=== PATIENT | male | born 1955 | race Caucasian/White ===

== ENCOUNTER 2016-11-28 20:33 | Inpatient (IN) | payer BC ==
[2016-11-28] VITALS (7 sets, daily range): BP systolic 118–159; BP diastolic 60–78; PULSE 106–133; RESP 18–20; TEMP 97.5; O2SAT 92–95
[~2016-11-28] VITALS: Ht 172.7 cm; Wt 73.7 kg
[~2016-11-28 20:33] MED LIST: AUGM500T7 PO; LACTCHW3 CHEW; PROP20TA3 PO
[2016-11-28] MEDS ORDERED: SODIUM CHLOR 0.9% 1000 ML INJ 1,000 ML IV SCH (21:13)
[2016-11-28] MEDS ORDERED: PANTOPRAZOLE INJ 80 MG in SODIUM CHLORIDE 0.9% INJ 35 ML IV ONE (21:15)
[2016-11-28] MEDS ORDERED: SODIUM CHLORIDE 0.9% FLUSH 5 ML FLUSH IVF PRN (21:15)
[2016-11-28] MEDS ORDERED: ONDANSETRON HCL 4 MG/2 ML VIAL IVP ONE (21:15)
[2016-11-28 21:35] LABS: AUTOMATED NEUTROPHIL # 4.3 TH/MM3 (1.8-7.7); BASOPHIL % 0.3 % (0.0-2.0); EOSINOPHIL % 0.8 % (0.0-4.0); HEMATOCRIT 28.8 % (39.0-51.0); LYMPH % 6.3 % (9.0-44.0); LYMPHOCYTE # 0.3 TH/MM3 (1.0-4.8); MEAN CELL VOLUME 101.9 FL (80.0-100.0); MEAN CORPUSCULAR HEMOGLOBIN 34.9 PG (27.0-34.0); MEAN CORPUSCULAR HGB CONC 34.3 % (32.0-36.0); MONO % 6.4 % (0.0-8.0); NEUT % 86.2 % (16.0-70.0); PLATELET COUNT 48 TH/MM3 (150-450); RED BLOOD COUNT 2.83 MIL/MM3 (4.50-5.90); RED CELL DISTRIBUTION WIDTH 13.9 % (11.6-17.2); WHITE BLOOD COUNT 4.9 TH/MM3 (4.0-11.0)
[2016-11-28 21:49] LABS: HEMO FLAGS AUTO DIFF
[2016-11-28 21:52] LABS: BLOOD UREA NITROGEN 15 MG/DL (7-18); CHLORIDE 101 MEQ/L (98-107); GLOMERULAR FILTRATION RATE 305 ML/MIN (>89); SODIUM (NA) 140 MEQ/L (136-145)
--- NOTE | 2016-11-28 21:54 | PD ---
HPI . Hematemesis Chief Complaint: GI Complaint Time Seen by Provider: 21:13 Travel History International Travel<30 days: No Contact w/Intl Traveler<30days: No Traveled to known affect area: No History of Present Illness HPI Patient presents following 2 episodes of hematemesis. They were fairly large volumes of blood. He denies any hematochezia or melena. He denies any weakness or dizziness. No fever. No previous history of hematochezia that he has had problems with bleeding in the past. Specifically, he has had a hemothorax on the right that required a prolonged chest tube. His also states that he had a bloody paracentesis in the recent past. They report that he has these problems because of cirrhosis of the liver secondary to alcohol abuse. He states that he has stopped drinking. PFSH Past Medical History Anemia: Yes Asthma: No Autoimmune Disease: No Anxiety: No Depression: No Cancer: No Cardiovascular Problems: No COPD: No Cerebrovascular Accident: No Diabetes: No Diminished Hearing: No Endocrine: No Genitourinary: Yes Immune Disorder: No Kidney Stones: Yes Musculoskeletal: No Neurologic: Yes Psychiatric: No Reproductive: No Respiratory: Yes (rt CHEST TUBE; COLLAPSED LUNG) Migraines: No Renal Failure: No Seizures: No Sickle Cell Disease: No Sleep Apnea: No Thyroid Disease: No Past Surgical History Abdominal Surgery: No AICD: No Arteriovenous Shunt: No Cardiac Surgery: No Ear Surgery: No Endocrine Surgery: No Eye Surgery: No Genitourinary Surgery: No Gynecologic Surgery: No Insulin Pump: No Joint Replacement: No Oral Surgery: No Pacemaker: No Thoracic Surgery: No Other Surgery: Yes (R ELBOW BONE SPUR REMOVAL ) Social History Alcohol Use: Yes (RARELY) Tobacco Use: No Substance Use: No Allergies-Medications (Allergen,Severity, Reaction): Coded Allergies: No Known Allergies (Unverified , 11/28/16) Reported Meds & Prescriptions Reported Meds & Active Scripts Active Lactinex (Lactobacillus Acidophilus) 1 Chew 1 Tab CHEW DAILY 30 Days Augmentin (Amoxicillin-Clavulanate) 500-125 mg Tab 500 Mg PO Q8HR 30 Days Reported Propranolol (Propranolol HCl) 20 Mg Tab 20 Mg PO Q12HR Review of Systems Except as stated in HPI: all other systems reviewed are Neg General / Constitutional: No: Fever, Chills HENT: No: Lightheadedness Cardiovascular: No: Chest Pain or Discomfort Respiratory: No: Shortness of Breath Gastrointestinal: Positive: Nausea, Vomiting, Hematemesis, No: Diarrhea, Abdominal Pain, Hematochezia Genitourinary: No: Urgency, Frequency, Dysuria Skin: Positive Change in Pigmentation (he is more yellow today than usual.) Neurologic: No: Weakness, Dizziness Physical Exam Narrative GENERAL: This is a thin, jaundiced man who is very pleasant. SKIN: Warm and dry. Jaundiced HEAD: Atraumatic. Normocephalic. EYES: Pupils equal and round. ENT: No nasal bleeding or discharge. Mucous membranes pink and moist. NECK: Trachea midline. Neck supple. No cervical lymphadenopathy. CARDIOVASCULAR: Regular rate and rhythm. RESPIRATORY: No accessory muscle use. Lungs are clear with full air movement throughout. GASTROINTESTINAL: Abdomen soft, non-tender, nondistended. No hepatomegaly palpated. MUSCULOSKELETAL: No obvious deformities. No edema. NEUROLOGICAL: Awake and alert. No obvious cranial nerve deficits. Motor grossly within normal limits. Normal speech. PSYCHIATRIC: Appropriate mood and affect; insight and judgment normal. Data Data Last Documented VS Vital Signs Date Time Temp Pulse Resp B/P Pulse Ox O2 Delivery O2 Flow Rate FiO2 11/28/16 22:00 18 11/28/16 21:46 97.5 106 145/62 93 11/28/16 21:39 Room Air Orders Complete Blood Count With Diff (11/28/16 21:13) Comprehensive Metabolic Panel (11/28/16 21:13) Prothrombin Time / Inr (Pt) (11/28/16 21:13) Act Partial Throm Time (Ptt) (11/28/16 21:13) Type And Screen (11/28/16 21:13) Ecg Monitoring (11/28/16 21:13) Iv Access Insert/Monitor (11/28/16 21:13) Ng Gastric Tube Insert/Monitor (11/28/16 21:13) Oximetry (11/28/16 21:13) Ondansetron Inj (Zofran Inj) (11/28/16 21:15) Sodium Chlor 0.9% 1000 Ml Inj (Ns 1000 M (11/28/16 21:13) Sodium Chloride 0.9% Flush (Ns Flush) (11/28/16 21:15) Octreotide Inj (Sandostatin Inj) (11/28/16 21:15) Pantoprazole Inj (Protonix Inj) (11/28/16 21:15) Electrocardiogram (11/28/16 21:19) Pantoprazole Inj (Protonix Inj) (11/28/16 22:00) Sodium Chlor 0.9% 1000 Ml Inj (Ns 1000 M (11/28/16 22:45) Red Blood Cells (Rbc) (11/28/16 22:41) Fresh Frozen Plasma (Ffp) (11/28/16 22:41) Blood Product Administration .UPON TRANSFUSION (11/28/16 22:41) Sodium Chlor 0.9% 250 Ml Inj (Ns 250 Ml (11/28/16 22:45) Admit Order (Ed Use Only) (11/28/16 22:57) Labs Laboratory Tests Test 11/28/16 11/28/16 21:20 22:41 White Blood Count 4.9 TH/MM3 Red Blood Count 2.83 MIL/MM3 Hemoglobin 9.9 GM/DL Hematocrit 28.8 % Mean Corpuscular Volume 101.9 FL Mean Corpuscular Hemoglobin 34.9 PG Mean Corpuscular Hemoglobin 34.3 % Concent Red Cell Distribution Width 13.9 % Platelet Count 48 TH/MM3 Mean Platelet Volume 7.2 FL Neutrophils (%) (Auto) 86.2 % Lymphocytes (%) (Auto) 6.3 % Monocytes (%) (Auto) 6.4 % Eosinophils (%) (Auto) 0.8 % Basophils (%) (Auto) 0.3 % Neutrophils # (Auto) 4.3 TH/MM3 Lymphocytes # (Auto) 0.3 TH/MM3 Monocytes # (Auto) 0.3 TH/MM3 Eosinophils # (Auto) 0.0 TH/MM3 Basophils # (Auto) 0.0 TH/MM3 CBC Comment AUTO DIFF Differential Comment AUTO DIFF CONFIRMED Platelet Estimate LOW Platelet Morphology Comment NORMAL Prothrombin Time 21.3 SEC Prothromb Time International 1.9 RATIO Ratio Activated Partial 36.3 SEC Thromboplast Time Sodium Level 140 MEQ/L Potassium Level 4.0 MEQ/L Chloride Level 101 MEQ/L Carbon Dioxide Level 28.2 MEQ/L Anion Gap 11 MEQ/L Blood Urea Nitrogen 15 MG/DL Creatinine 0.30 MG/DL Estimat Glomerular Filtration 305 ML/MIN Rate Random Glucose 129 MG/DL Calcium Level 8.4 MG/DL Total Bilirubin 10.3 MG/DL Aspartate Amino Transf 73 U/L (AST/SGOT) Alanine Aminotransferase 36 U/L (ALT/SGPT) Alkaline Phosphatase 118 U/L Total Protein 7.2 GM/DL Albumin 2.2 GM/DL Blood Type B POSITIVE Antibody Screen NEGATIVE Crossmatch Leukocyte-Reduced Red Blood Cells Blood Bank Comment MDM Medical Decision Making Medical Screen Exam Complete: Yes Emergency Medical Condition: Yes Medical Record Reviewed: Yes (patient was hospitalized in September 2016 with a right hemothorax which was recurrent in nature. He had bacterial peritonitis. He had Escherichia coli sepsis.) Interpretation(s) EKG shows a sinus tachycardia at 112. He has a right bundle branch block which is not new. Differential Diagnosis Differential diagnosis includes but is not limited to hemorrhagic gastritis, bleeding varices, peptic ulcer disease, coagulopathy, thrombocytopenia Narrative Course Patient presents with hematemesis. He has a previous history of liver failure secondary to alcoholic cirrhosis. He appears hemodynamically stable at presentation. 10:30 PM NGT has been placed and has drained about 200 cc of maroon colored gross blood. He remains hemodynamically stable at this point. 10:45 PM H&H of 928.8. INR is 1.9. BUN/creatinine is 15/0.3. Electrolytes are normal. Bilirubin is 10.3. Looks like his maximum bilirubin was about 15 in September. I will go ahead and paged the guest relations executive and get the ball rolling so that he could be transferred to [place]. 11:25 PM He continues to seem hemodynamically stable. His heart rate has stayed between 100 and 110. He has never been hypotensive. He is very uncomfortable with the NG tube but has declined pain medication. Critical Care Narrative Aggregate critical care time was 60 minutes. Time to perform other separately billable procedures was not included in the critical care time. My time did not include minutes spent treating any other patients simultaneously or on activities that did not directly contribute to the patient's treatment. The services I provided to this patient were to treat and/or prevent clinically significant deterioration that could result in: Cardiovascular collapse secondary to GI bleed. I provided critical care services requiring my management, as noted below: Chart data review, documentation time, medication orders and management, vital sign assessments/reviewing monitor data, ordering and reviewing lab tests, ordering and interpreting/reviewing x-rays and diagnostic studies, care of the patient and discussion of the patient with the admitting physicians. Physician Communication Physician Communication Dr. Caballero will accept in transfer. She has asked that I communicate with her drill press set up operator prior to transfer. He has also asked that I make sure that the patient has 2 IV lines. He does have 2 18-gauge peripheral lines. I have subsequently spoken with Dr. Villanueva. Diagnosis Primary Impression: Hematochezia Admitting Information Admitting Physician Requests: Admit Condition: Serious Aretha Rose MD Nov 28, 2016 21:54
[2016-11-28 21:55] LABS: APTT (PATIENT) 36.3 SEC (24.3-30.1); INTERNATIONAL NORMALIZED RATIO 1.9 RATIO; PROTHROMBIN TIME - PATIENT 21.3 SEC (9.8-11.6)
[2016-11-28 22:23] LABS: PLATELET ESTIMATE SMEAR LOW (NORMAL); PLATELET MORPHOLOGY NORMAL (NORMAL); SCAN/DIFF AUTO DIFF CONFIRMED
[2016-11-28] MEDS: OCTREOTIDE INJ 500 MCG in SODIUM CHLORID 0.9% 500 ML INJ 500 ML IV SCH (22:26)
[2016-11-28] MEDS: PANTOPRAZOLE 80 MG/100 ML NS IV SCH ×2 (22:33)
[2016-11-28 22:34] LABS: ALT (GPT) 36 U/L (12-78); ANION GAP 11 MEQ/L (5-15); AST (GOT) 73 U/L (15-37); BICARBONATE 28.2 MEQ/L (21.0-32.0)
[2016-11-28 22:37] LABS: ALKALINE PHOSPHATASE 118 U/L (45-117); TOTAL BILIRUBIN ADULT 10.3 MG/DL (0.2-1.0)
[2016-11-28] MEDS ORDERED: SODIUM CHLOR 0.9% 1000 ML INJ 1,000 ML IV ONE (22:45)
[2016-11-28] MEDS ORDERED: SODIUM CHLOR 0.9% 250 ML INJ 250 ML IV ONE (22:45)
[2016-11-29] VITALS (22 sets, daily range): BP systolic 132–152; BP diastolic 64–77; PULSE 62–120; RESP 14–20; TEMP 97.6–98.6; O2SAT 92–100
[2016-11-29] MEDS ORDERED: METO25TA3 PO (01:39)
[2016-11-29] MEDS: SODIUM CHLOR 0.9% 1000 ML INJ 1,000 ML IV SCH ×4 (04:35→22:00)
[2016-11-29] MEDS ORDERED: SODIUM PHOSPHATE INJ 30 MMOL in SODIUM CHLOR 0.9% 250 ML INJ 240 ML IV PRN (06:30)
[2016-11-29] MEDS ORDERED: ONDANSETRON HCL 4 MG/2 ML VIAL IV PRN (06:30)
[2016-11-29] MEDS ORDERED: MAGNESIUM SULFATE INJ 2 GM in SODIUM CHLORIDE 0.9% INJ 96 ML IV PRN (06:30)
[2016-11-29] MEDS ORDERED: RESP: ALBUTEROL 2.5 MG/IPRATROPIUM 0.5 MG NEB (PRN) INH (06:30)
[2016-11-29] MEDS ORDERED: POTASSIUM PHOSPHATE MONOBASIC 500 MG TAB PO PRN (06:30)
[2016-11-29] MEDS ORDERED: MISCELLANEOUS NURSING INFORMATION XX SCH (06:30)
[2016-11-29] MEDS ORDERED: POTASSIUM CHLOR 20 MEQ PREMIX 100 ML IV PRN ×2 (06:30)
[2016-11-29] MEDS ORDERED: MAGNESIUM OXIDE 400 MG TAB PO PRN (06:30)
[2016-11-29] MEDS ORDERED: POTASSIUM PHOSPHATE INJ 30 MMOL in SODIUM CHLOR 0.9% 250 ML INJ 250 ML IV PRN (06:30)
[2016-11-29] MEDS ORDERED: MAGNESIUM SULFATE INJ 4 GM in SODIUM CHLORIDE 0.9% INJ 92 ML IV PRN (06:30)
[2016-11-29] MEDS ORDERED: CHLORHEXIDINE GLUCONATE 2 % 1 PACK (2 CLOTHS) TOP PRN (06:30)
[2016-11-29] MEDS ORDERED: POTASSIUM CHLOR 40 MEQ PREMIX 100 ML IV PRN ×2 (06:30)
[2016-11-29] MEDS ORDERED: SODIUM CHLORIDE 0.9% FLUSH 5 ML FLUSH IV FLUSH PRN (06:30)
[2016-11-29] MEDS ORDERED: POTASSIUM PHOSPHATE MONOBASIC 500 MG TAB PO/TUBE PRN (06:30)
[2016-11-29] MEDS ORDERED: POTASSIUM CL 40 MEQ/30 ML LIQ UDC PO/TUBE PRN ×2 (06:30)
[2016-11-29] MEDS ORDERED: DEXTROSE 50% IN WATER 50 ML VIAL(D50) IV PUSH PRN (06:30)
[2016-11-29] MEDS: OCTREOTIDE INJ 500 MCG in SODIUM CHLORID 0.9% 500 ML INJ 500 ML IV SCH ×2 (06:34→18:11)
--- NOTE | 2016-11-29 06:51 | HHI.HP ---
HPI Service Critical Care Medicine Primary Care Physician Non-Staff Admission Diagnosis HEMATOCHEZIA Diagnosis: Chief Complaint: vomiting blood Travel History International Travel<30 Days: No Contact w/Intl Traveler <30 Da: No Traveled to Known Affected Are: No History of Present Illness This is a 61yM with history of ethanol cirrhosis who presents after 1 episode of vomiting bright red blood. He stated that earlier in the evening he was drinking a glass of water and then went to take a nap, and then woke up shortly after with a mild epigastric pain, nausea, and then vomited "a pint of blood". He immediately went to the ED, where he states he had 1 more episode of "small amount of bloody vomit". He denies diarrhea, dark tarry stools, bright red blood per rectum. denies fever, chills, abdominal pain currently, chest pain, shortness of breath. His MELD today is 22. Of note, he was recently inpatient for a recurrent right hemothorax, as well as e. coli spontaneous bacterial peritonitis. He has been followed by GI on an outpatient basis and they recently started him on propranolol. Review of Systems Constitutional: DENIES: Diaphoretic episodes, Fatigue, Fever, Weight gain, Weight loss, Chills, Dizziness, Change in appetite, Night Sweats Endocrine: DENIES: Heat/cold intolerance, Polydipsia, Polyuria, Polyphagia Eyes: DENIES: Blurred vision, Diplopia, Eye inflammation, Eye pain, Vision loss , Photosensitivity, Double Vision Ears, nose, mouth, throat: DENIES: Tinnitus, Hearing loss, Vertigo, Nasal discharge, Oral lesions, Throat pain, Hoarseness, Ear Pain, Running Nose, Epistaxis, Sinus Pain, Toothache, Odynophagia Respiratory: DENIES: Apneas, Cough, Snoring, Wheezing, Hemoptysis, Sputum production, Shortness of breath Cardiovascular: DENIES: Chest pain, Palpitations, Syncope, Dyspnea on Exertion , PND, Lower Extremity Edema, Orthopnea, Claudication Gastrointestinal: DENIES: Abdominal pain, Black stools, Bloody stools, Constipation, Diarrhea, Nausea, Vomiting, Difficulty Swallowing, Anorexia Genitourinary: DENIES: Sexual dysfunction, Urinary frequency, Urinary incontinence, Urgency, Hematuria, Dysuria, Nocturia, Penile Discharge, Testicular Pain, Testicular Swelling Musculoskeletal: DENIES: Joint pain, Muscle aches, Stiffness, Joint Swelling, Back pain, Neck pain Integumentary: DENIES: Abnormal pigmentation, Nail changes, Pruritus, Rash Hematologic/lymphatic: DENIES: Bruising, Lymphadenopathy Immunologic/allergic: DENIES: Eczema, Urticaria Neurologic: DENIES: Abnormal gait, Headache, Localized weakness, Paresthesias, Seizures, Speech Problems, Tremor, Poor Balance Psychiatric: DENIES: Anxiety, Confusion, Mood changes, Depression, Hallucinations, Agitation, Suicidal Ideation, Homicidal Ideation, Delusions ROS positive for mild transient epigastric pain which has now subsided. Past Family Social History Allergies: Coded Allergies: No Known Allergies (Unverified , 11/28/16) Past Medical History Anemia Kidney Stones Alcoholic Cirrhosis history of right-sided recurrent hemothorax requiring recurrent chest tube placement 09/2016 E.Coli Spontaneous Bacterial Peritonitis, 09/2016 Past Surgical History Right elbow bone spur removal Reported Medications Lactinex (Lactobacillus Acidophilus) 1 Chew 1 Tab CHEW DAILY 30 Days Augmentin (Amoxicillin-Clavulanate) 500-125 mg Tab 500 Mg PO Q8HR 30 Days Propranolol (Propranolol HCl) 20 Mg Tab 20 Mg PO Q12HR Active Ordered Medications See MAR Family History reviewed and found to be noncontributory to his acute illness. Social History +etoh. denies tob or DOA. Physical Exam Vital Signs Vital Signs Date Time Temp Pulse Resp B/P Pulse Ox O2 Delivery O2 Flow Rate FiO2 11/29/16 04:54 97.9 99 20 142/77 94 Room Air 11/29/16 04:38 98.0 96 18 132/66 100 Room Air 11/29/16 04:00 98.0 100 18 141/67 96 Nasal Cannula 1 11/29/16 03:50 97.9 98 20 137/68 97 Nasal Cannula 1 11/29/16 03:45 97.6 100 18 149/70 96 Nasal Cannula 1 11/29/16 03:15 90 Nasal Cannula 1 11/29/16 03:03 98.2 102 18 140/67 92 Room Air 11/29/16 01:30 97.7 106 18 145/68 94 Room Air 11/29/16 01:05 98.0 109 18 144/64 94 Room Air 11/29/16 00:45 97.8 110 18 143/66 96 Room Air 11/29/16 00:30 112 18 146/65 94 Room Air 11/29/16 00:30 18 11/29/16 00:00 112 20 152/65 93 Room Air 11/28/16 23:30 108 18 155/67 93 Room Air 11/28/16 23:00 106 20 159/69 93 Room Air 11/28/16 22:30 112 18 156/71 94 Room Air 11/28/16 22:00 18 11/28/16 22:00 112 18 147/60 94 Room Air 11/28/16 21:46 97.5 106 20 145/62 93 11/28/16 21:39 97.5 110 20 149/78 92 Room Air 11/28/16 20:35 97.5 133 20 118/77 95 Physical Exam Gen: awake, alert, NAD, jaundiced HEENT: significant scleral icterus. pupils 3mm, equal, conjugate, reactive. mucous membranes moist. Neck: flat neck veins. trachea midline. Chest: unlabored respirations. clear to auscultation CV: tachycardic rate, regular rhythm. no murmurs. Abd: soft, nontender, nondistended. no guarding. normoactive bowel sounds. Extr: trace edema. distal pulses 2+. large bore PIV x 3. Neuro: RASS 0. CAM -. follows commands in all 4 extremities. Laboratory Laboratory Tests Test 11/28/16 11/28/16 21:20 22:41 White Blood Count 4.9 Red Blood Count 2.83 Hemoglobin 9.9 Hematocrit 28.8 Mean Corpuscular Volume 101.9 Mean Corpuscular Hemoglobin 34.9 Mean Corpuscular Hemoglobin 34.3 Concent Red Cell Distribution Width 13.9 Platelet Count 48 Mean Platelet Volume 7.2 Neutrophils (%) (Auto) 86.2 Lymphocytes (%) (Auto) 6.3 Monocytes (%) (Auto) 6.4 Eosinophils (%) (Auto) 0.8 Basophils (%) (Auto) 0.3 Neutrophils # (Auto) 4.3 Lymphocytes # (Auto) 0.3 Monocytes # (Auto) 0.3 Eosinophils # (Auto) 0.0 Basophils # (Auto) 0.0 CBC Comment AUTO DIFF Differential Comment AUTO DIFF CONFIRMED Platelet Estimate LOW Platelet Morphology Comment NORMAL Prothrombin Time 21.3 Prothromb Time International 1.9 Ratio Activated Partial 36.3 Thromboplast Time Sodium Level 140 Potassium Level 4.0 Chloride Level 101 Carbon Dioxide Level 28.2 Anion Gap 11 Blood Urea Nitrogen 15 Creatinine 0.30 Estimat Glomerular Filtration 305 Rate Random Glucose 129 Calcium Level 8.4 Total Bilirubin 10.3 Aspartate Amino Transf 73 (AST/SGOT) Alanine Aminotransferase 36 (ALT/SGPT) Alkaline Phosphatase 118 Total Protein 7.2 Albumin 2.2 Blood Type B POSITIVE Antibody Screen NEGATIVE Crossmatch Leukocyte-Reduced Red Blood Cells Blood Bank Comment Result Diagram: 11/28/16211911/28/162119 Assessment and Plan Assessment and Plan Assessment: This is a 61yM with h/o alcoholic cirrhosis and recent e. coli sbp who presents now with 2 episodes of hematemesis and concern for ongoing upper GI bleed. He is currently not hemodynamically unstable. I do think it is reasonable to proceed with diagnostic endoscopy if GI concurs. Until then, we will maintain 2 large bore piv access at all times and monitor the patient with serial labs and frequent checks in an ICU setting. From an overall functional decline standpoint, he has had a general decline in hepatic function over the last 3 months, and his MELD is now 22 today. He has been etoh free for the last 12 months. I think it is reasonable to start considering beginning the work-up for transplantation, since at present he does not have any absolute contraindication for this. Plan by systems: Neurologic: History of alcohol dependence RASS goal 0 Patient denies any active alcohol use Respiratory: Atelectasis Incentive spirometer to bedside Head of bed at 30 Wean oxygen by nasal cannula for SPO2 greater than 92% Cardiovascular: Monitor via telemetry Holding home propranolol in the setting of possible hemodynamically significant GI bleed Renal: -- Strict I/Os FEN/GI: Acute protein calorie malnutritionmoderate Cirrhosis secondary to ethanol use History of Escherichia coli spontaneous bacterial peritonitis Upper GI bleed Ascites GI consulted Possible endoscopy today Continue nothing by mouth for now Continue NG tube to low intermittent wall suction H&H every 6 hours Coags every 6 hours Ceftriaxone 1 g IV every 24 hours for SBP prophylaxis Daily LFTs, BMP Protonix infusion Octreotide Heme/ID: Coagulopathy secondary to liver disease Anemia secondary to acute blood loss Thrombocytopenia secondary to liver disease History of e coli spontaneous bacterial peritonitis 2 units FFP 1 now Every 6 H&H, coags Goal hemoglobin greater than 7, INR less than 1.5 with active bleeding, platelets greater than 50,000 with active bleeding Cephalexin 1 g IV every 24 hours for SBP prophylaxis Daily CBC Endocrine: Hyperglycemia of critical illness -- SSI, every 6 hours, medium scale Prophylaxis: GI Prophylaxis Protonix infusion DVT Prophylaxis -- SCDs Holding pharmacologic DVT prophylaxis in the setting of acute upper GI bleed Lines: 2 large-bore peripheral IVs at all times. Dispo: Admit to the ICU. Code Status Full Code Todd Gonzalez MD Nov 29, 2016 06:51
[2016-11-29] MEDS: PANTOPRAZOLE 80 MG/100 ML NS IV SCH ×4 (08:00→18:11)
[2016-11-29] MEDS: SODIUM CHLORIDE 0.9% FLUSH 5 ML FLUSH IV FLUSH SCH ×2 (09:00→20:06)
[2016-11-29 09:29] LABS: APTT (PATIENT) 36.3 SEC (24.3-30.1); INTERNATIONAL NORMALIZED RATIO 1.7 RATIO; PROTHROMBIN TIME - PATIENT 19.7 SEC (9.8-11.6)
[2016-11-29 09:30] LABS: HEMATOCRIT 25.6 % (39.0-51.0)
[2016-11-29 09:35] LABS: REVIEW FLAG FINAL
[2016-11-29] MEDS: INSULIN NovoLIN REGULAR SUPPLEMENTAL SCALE SQ SCH ×2 (12:00→18:00)
[2016-11-29] MEDS: cefTRIAXone INJ 1,000 MG in SODIUM CHLORIDE 0.9% INJ 100 ML IV SCH (12:51)
[2016-11-29 13:09] LABS: REVIEW FLAG FINAL
[2016-11-29 13:15] LABS: APTT (PATIENT) 34.3 SEC (24.3-30.1); INTERNATIONAL NORMALIZED RATIO 1.7 RATIO; PROTHROMBIN TIME - PATIENT 18.8 SEC (9.8-11.6)
[2016-11-29 20:52] LABS: HEMATOCRIT 27.4 % (39.0-51.0)
[2016-11-29 20:53] LABS: REVIEW FLAG FINAL
[2016-11-29 21:03] LABS: APTT (PATIENT) 37.1 SEC (24.3-30.1); INTERNATIONAL NORMALIZED RATIO 1.7 RATIO; PROTHROMBIN TIME - PATIENT 19.2 SEC (9.8-11.6)
[2016-11-29 21:08] LABS: MEAN CORPUSCULAR HGB CONC 36.3 % (32.0-36.0)
--- NOTE | 2016-11-29 23:50 | EKG ---
Date Performed: 11/28/2016 Time Performed: 21:18:26 PTAGE: 61 years EKG: Sinus tachycardia with borderline 1st degree A-V block Possible left atrial abnormality Ind eterminate axis Right bundle branch block Abnormal ECG PREVIOUS TRACING : 09/11/2016 02.26 DOCTOR: Litzy Randall Interpretating Date/Time 11/29/2016 23:43:24
[2016-11-30] VITALS (12 sets, daily range): BP systolic 131–143; BP diastolic 66–73; PULSE 87–100; RESP 16–22; TEMP 98–98.6; O2SAT 93–99
[2016-11-30 00:33] LABS: HEMATOCRIT 25.9 % (39.0-51.0)
[2016-11-30 00:34] LABS: REVIEW FLAG FINAL
[2016-11-30 00:38] LABS: APTT (PATIENT) 37.3 SEC (24.3-30.1); INTERNATIONAL NORMALIZED RATIO 1.7 RATIO; PROTHROMBIN TIME - PATIENT 19.5 SEC (9.8-11.6)
[2016-11-30] MEDS: PANTOPRAZOLE 80 MG/100 ML NS IV SCH ×6 (03:01→19:32)
[2016-11-30] MEDS: OCTREOTIDE INJ 500 MCG in SODIUM CHLORID 0.9% 500 ML INJ 500 ML IV SCH ×3 (03:01→19:32)
[2016-11-30] MEDS: CHLORHEXIDINE GLUCONATE 2 % 1 PACK (2 CLOTHS) TOP SCH (04:00)
[2016-11-30] MEDS: INSULIN NovoLIN REGULAR SUPPLEMENTAL SCALE SQ SCH ×4 (05:44→18:00)
[2016-11-30 06:54] LABS: APTT (PATIENT) 36.9 SEC (24.3-30.1); INTERNATIONAL NORMALIZED RATIO 1.8 RATIO; PROTHROMBIN TIME - PATIENT 20.4 SEC (9.8-11.6)
[2016-11-30 07:05] LABS: HEMATOCRIT 26.1 % (39.0-51.0); MEAN CELL VOLUME 96.8 FL (80.0-100.0); MEAN CORPUSCULAR HEMOGLOBIN 35.1 PG (27.0-34.0); PLATELET COUNT 39 TH/MM3 (150-450); RED BLOOD COUNT 2.69 MIL/MM3 (4.50-5.90); RED CELL DISTRIBUTION WIDTH 18.5 % (11.6-17.2); WHITE BLOOD COUNT 3.9 TH/MM3 (4.0-11.0)
[2016-11-30 07:14] LABS: BICARBONATE 28.2 MEQ/L (21.0-32.0); INDIRECT BILIRUBIN 6.7 MG/DL (0.0-0.8); POTASSIUM 3.6 MEQ/L (3.5-5.1); TOTAL BILIRUBIN ADULT 10.3 MG/DL (0.2-1.0)
[2016-11-30 08:07] LABS: REVIEW FLAG FINAL
[2016-11-30] MEDS: cefTRIAXone INJ 1,000 MG in SODIUM CHLORIDE 0.9% INJ 100 ML IV SCH (09:23)
[2016-11-30] MEDS: SODIUM CHLORIDE 0.9% FLUSH 5 ML FLUSH IV FLUSH SCH ×2 (09:26→19:33)
[2016-11-30] MEDS ORDERED: PNEUMOCOCCAL POLYVALENT INJ 25 MCG/0.5 ML SYR IM ONE (10:00)
[2016-11-30] MEDS ORDERED: INFLUENZA VIRUS VACCINE (QUADRIVALENT) 0.5 ML SYR IM ONE (10:00)
--- NOTE | 2016-11-30 12:16 | MB ---
cc: BOGDAN MUHAMMAD DATE OF CONSULTATION: 11/29/2016 DATE OF : 1955 date REASON FOR REFERRAL Gastrointestinal bleed and cirrhosis. HISTORY OF PRESENT ILLNESS Thank you for consultation, 61-year-old female who is known to have alcohol liver disease. The patient has cirrhosis. He quit drinking mostly about a year ago. The patient was drinking water when he started having nausea and vomiting and he vomited what he thinks was a pint of blood. He came to the emergency room and is found to have anemia. The patient denied any black stool, diarrhea, bright red blood per rectum. The patient is jaundice. He had right hemothorax recently and a systolic blood pressure he was started on recently. PAST MEDICAL HISTORY Significant for kidney stone alcohol cirrhosis hemothorax requiring chest tube recently Systolic blood pressure Right elbow surgery MEDICATIONS Reviewed in the chart. ALLERGIES No known drug allergy FAMILY HISTORY Noncontributory. SOCIAL HISTORY Positive for alcohol. No tobacco or drugs. PHYSICAL EXAMINATION IN GENERAL: Alert, oriented in no acute distress laying in bed comfortably. VITAL SIGNS: Stable. HEAD, EYES, EARS, NOSE, AND THROAT: Pupils are reactive to light. NECK: Supple. CHEST: Clear to auscultation. CARDIAC: Tachycardiac. No murmur or gallop. ABDOMEN: Soft, mild distension, most likely he has ascites. EXTREMITIES: +1 edema. NEUROLOGICALLY: Intact. Patient has jaundice and yellow sclera. LABORATORY DATA Sodium 143, potassium 3.6, BUN 14, creatinine 0.4 80s total bilirubin 10.3, AST 73 and ALT 36, alk phos 118, albumin 2.2, Hemoglobin 9.2 and creatinine 25.9, white blood cells 4.9, platelet 48, INR 1.8. ASSESSMENT AND PLAN: 61-year-old gentleman who has history of known cirrhosis secondary to alcohol. The patient had hematemesis, could be Alicia-Dyson tear, could be esophageal varices. RECOMMENDATIONS Upper endoscopy, we will continue supportive care. He is on Protonix. Hemoglobin is stable. Further plan depends on the finding on the upper endoscopy. He is on octreotide started by the emergency room. The patient was advised the absence of tobacco completely and his known score is 22 and we would recommend to him being evaluated with transplant center. MD Melissa Juarez /11:37 AM /12:09 PM
--- NOTE | 2016-11-30 12:22 | EKG ---
Date Performed: 11/30/2016 Time Performed: 10:14:25 PTAGE: 61 years EKG: Sinus rhythm MARKED LEFT AXIS DEVIATION RIGHT BUNDLE BRANCH BLOCK ABNORMAL ECG PREVIOUS TRACING : 11/28/2016 21.18 DOCTOR: Stuart Oden Interpretating Date/Time 11/30/2016 12:20:08
[2016-11-30] MEDS ORDERED: DO NOT ADM ANY ANTICOAGULANT DRUGS XX PRN (14:00)
[2016-11-30] MEDS ORDERED: MIDAZOLAM HCL 2 MG/2 ML VIAL ONE (15:53)
[2016-11-30] MEDS ORDERED: PROPOFOL 200 MG/20 ML AMP IV ONE (15:56)
--- NOTE | 2016-11-30 17:06 | MR ---
cc: BOGDAN MUHAMMAD DATE: 11/30/2016 DATE OF : [address] Caballero PROCEDURE Upper gastrointestinal endoscopy. MEDICATIONS Propofol administered by anesthesia. INSTRUMENTS: Pentax upper scope. INDICATION 61-year-old gentleman who has hematemesis and anemia known to have cirrhosis. PROCEDURE After informing the patient of procedure and complication consent was signed. The patient was placed on his left lateral decubitus adequate sedation was achieved by propofol scope was placed in the mouth advanced under video guidance to the second portion of the duodenum scope drawn back the stomach. Retroflexion was performed and the scope drawn back without immediate complication. FINDINGS 1. ESOPHAGUS: Severe esophagitis. 2. Alicia-Dyson tear at the GE junction. 3. Short barretts. 4. No biopsy was done because of the cardiomyopathy the patient has high INR and low platelet. 5. STOMACH: Gastropathy. 6. DUODENUM: Normal. RECOMMENDATIONS 1. Clear liquid. 2. CBC in the morning. 3. No alcohol. 4. May stop the Sandostatin. MD ANJUM Juarez/jeane /4:03 PM /4:58 PM
[2016-11-30] MEDS: SODIUM CHLOR 0.9% 1000 ML INJ 1,000 ML IV SCH (19:33)
--- NOTE | 2016-11-30 22:08 | HHI.CCPN ---
Subjective Remarks/Hospital Course Hospital Course: This is a 61yM with history of ethanol cirrhosis who presents after 1 episode of vomiting bright red blood. He stated that earlier in the evening he was drinking a glass of water and then went to take a nap, and then woke up shortly after with a mild epigastric pain, nausea, and then vomited "a pint of blood". He immediately went to the ED, where he states he had 1 more episode of "small amount of bloody vomit". He denies diarrhea, dark tarry stools, bright red blood per rectum. denies fever, chills, abdominal pain currently, chest pain, shortness of breath. His MELD today is 22. Of note, he was recently inpatient for a recurrent right hemothorax, as well as e. coli spontaneous bacterial peritonitis. He has been followed by GI on an outpatient basis and they recently started him on propranolol. Subjective: 11/30: doing well. hgb stable throughout the day yesterday. no more episodes of bloody emesis. hungry this morning. Objective Vital Signs Date Time Temp Pulse Resp B/P Pulse Ox O2 Delivery O2 Flow Rate FiO2 11/30/16 20:21 98 Nasal Cannula 3.00 11/30/16 20:00 95 11/30/16 20:00 98.5 16 131/73 Intake and Output 11/29/16 11/29/16 11/30/16 08:00 16:00 00:00 Intake Total 2035 ml 2236 ml 1045 ml Output Total 250 ml 600 ml 1050 ml Balance 1785 ml 1636 ml -5 ml Result Diagram: 11/30/16 0624 11/30/16 0524 Objective Remarks Gen: awake, alert, NAD, jaundiced HEENT: significant scleral icterus. pupils 3mm, equal, conjugate, reactive. mucous membranes moist. Neck: flat neck veins. trachea midline. Chest: unlabored respirations. clear to auscultation CV: tachycardic rate, regular rhythm. no murmurs. Abd: soft, nontender, nondistended. no guarding. normoactive bowel sounds. Extr: trace edema. distal pulses 2+. large bore PIV x 3. Neuro: RASS 0. CAM -. follows commands in all 4 extremities. A/P Assessment and Plan Assessment: This is a 61yM with h/o alcoholic cirrhosis and recent e. coli sbp who presented with 2 episodes of hematemesis. he has remained stable. plan for EGD today. If he remains stable without evidence of active bleeding, he will be safe for transfer to the floor after EGD. From an overall functional decline standpoint, he has had a general decline in hepatic function over the last 3 months, and his MELD is now 22. He has been etoh free for the last 2 months. I think it is reasonable to start considering beginning the work-up for transplantation, since at present he does not have any absolute contraindication for this. Plan by systems: Neurologic: History of alcohol dependence RASS goal 0 Patient denies any active alcohol use Respiratory: Atelectasis Incentive spirometer to bedside Head of bed at 30 Wean oxygen by nasal cannula for SPO2 greater than 92% Cardiovascular: Monitor via telemetry Holding home propranolol in the setting of possible hemodynamically significant GI bleed Renal: -- Strict I/Os FEN/GI: Acute protein calorie malnutritionmoderate Cirrhosis secondary to ethanol use History of Escherichia coli spontaneous bacterial peritonitis Upper GI bleed Ascites GI consulted endoscopy today Continue nothing by mouth for now Continue NG tube to low intermittent wall suction liberalize to qday CBC. daily coags. Ceftriaxone 1 g IV every 24 hours for SBP prophylaxis Daily LFTs, BMP Protonix infusion Octreotide Heme/ID: Coagulopathy secondary to liver disease Anemia secondary to acute blood loss Thrombocytopenia secondary to liver disease History of e coli spontaneous bacterial peritonitis s/p 2 units FFP /3. Goal hemoglobin greater than 7, INR less than 1.5 with active bleeding, platelets greater than 50,000 with active bleeding Rocephin 1 g IV every 24 hours for SBP prophylaxis Daily CBC Endocrine: Hyperglycemia of critical illness -- SSI, every 6 hours, medium scale Prophylaxis: GI Prophylaxis Protonix infusion DVT Prophylaxis -- SCDs Holding pharmacologic DVT prophylaxis in the setting of acute upper GI bleed Lines: 2 large-bore peripheral IVs at all times. Dispo: After EGD, stable for transfer to the floor with hospitalist consult. Todd Gonzalez MD Nov 30, 2016 22:08
[2016-12-01] VITALS (15 sets, daily range): BP systolic 96–160; BP diastolic 55–82; PULSE 82–92; RESP 14–17; TEMP 97.4–98.9; O2SAT 90–98
[2016-12-01] MEDS: CHLORHEXIDINE GLUCONATE 2 % 1 PACK (2 CLOTHS) TOP SCH (04:00)
[2016-12-01 04:02] LABS: HEMATOCRIT 24.9 % (39.0-51.0); MEAN CORPUSCULAR HEMOGLOBIN 34.5 PG (27.0-34.0); MEAN CORPUSCULAR HGB CONC 35.5 % (32.0-36.0); PLATELET COUNT 40 TH/MM3 (150-450); RED BLOOD COUNT 2.56 MIL/MM3 (4.50-5.90); RED CELL DISTRIBUTION WIDTH 18.6 % (11.6-17.2); WHITE BLOOD COUNT 3.8 TH/MM3 (4.0-11.0)
[2016-12-01 04:13] LABS: APTT (PATIENT) 40.7 SEC (24.3-30.1); INTERNATIONAL NORMALIZED RATIO 1.8 RATIO; PROTHROMBIN TIME - PATIENT 20.9 SEC (9.8-11.6)
[2016-12-01 04:32] LABS: INDIRECT BILIRUBIN 5.2 MG/DL (0.0-0.8); POTASSIUM 3.4 MEQ/L (3.5-5.1); TOTAL BILIRUBIN ADULT 8.1 MG/DL (0.2-1.0)
[2016-12-01 05:00] LABS: REVIEW FLAG FINAL
[2016-12-01] MEDS: PANTOPRAZOLE 80 MG/100 ML NS IV SCH ×4 (05:14→15:21)
[2016-12-01] MEDS: INSULIN NovoLIN REGULAR SUPPLEMENTAL SCALE SQ SCH ×4 (05:17→18:00)
[2016-12-01] MEDS ORDERED: POTASSIUM CL 40 MEQ/30 ML LIQ UDC PO ONE (07:30)
[2016-12-01] MEDS: SODIUM CHLORIDE 0.9% FLUSH 5 ML FLUSH IV FLUSH SCH ×2 (09:00→20:21)
[2016-12-01] MEDS: cefTRIAXone INJ 1,000 MG in SODIUM CHLORIDE 0.9% INJ 100 ML IV SCH (10:00)
--- NOTE | 2016-12-01 13:36 | HHI.GIFU ---
Subjective Remarks Patient is sitting up in chair eating lunch, reports some old blood this morning , no hematemesis, no nausea, no vomiting or abdominal pain, inquiring about advancing diet. (Sofia Rubio) Objective Vitals I&O Vital Signs Date Time Temp Pulse Resp B/P Pulse Ox O2 Delivery O2 Flow Rate FiO2 12/01/16 10:17 87 12/01/16 10:14 94 Nasal Cannula 3.00 12/01/16 08:00 98.0 90 14 160/82 90 12/01/16 08:00 85 12/01/16 06:00 82 12/01/16 04:00 97.4 90 14 141/74 97 12/01/16 04:00 90 12/01/16 02:00 87 12/01/16 00:00 86 12/01/16 00:00 98.2 86 17 133/66 97 11/30/16 22:00 91 11/30/16 20:21 98 Nasal Cannula 3.00 11/30/16 20:00 95 11/30/16 20:00 98.5 95 16 131/73 98 11/30/16 16:30 98.0 87 18 134/70 99 11/30/16 16:30 98.0 92 16 133/71 95 Room Air 11/30/16 16:15 94 15 130/69 98 Nasal Cannula 2 11/30/16 16:10 98.5 98 14 127/66 95 Nasal Cannula 2 I/O 11/30/16 11/30/16 11/30/16 12/01/16 12/01/16 12/01/16 07:00 15:00 23:00 07:00 15:00 23:00 Intake Total 1121 ml 1627 ml 775 ml 873 ml Output Total 525 ml 1250 ml 325 ml 250 ml Balance 596 ml 377 ml 450 ml 623 ml IV Total 1121 ml 1627 ml 275 ml 873 ml Other 500 ml Output Urine Total 525 ml 1200 ml 325 ml 250 ml Stool Total 0 ml Gastric Drainage Total 50 ml # Bowel Movements 0 0 0 Laboratory Laboratory Tests Test 12/01/16 03:08 White Blood Count 3.8 Red Blood Count 2.56 Hemoglobin 8.8 Hematocrit 24.9 Mean Corpuscular Volume 97.0 Mean Corpuscular Hemoglobin 34.5 Mean Corpuscular Hemoglobin 35.5 Concent Red Cell Distribution Width 18.6 Platelet Count 40 Mean Platelet Volume 7.0 Prothrombin Time 20.9 Prothromb Time International 1.8 Ratio Activated Partial 40.7 Thromboplast Time Sodium Level 142 Potassium Level 3.4 Chloride Level 107 Carbon Dioxide Level 28.0 Anion Gap 7 Blood Urea Nitrogen 14 Creatinine 0.44 Estimat Glomerular Filtration 196 Rate Random Glucose 108 Calcium Level 7.5 Total Bilirubin 8.1 Direct Bilirubin 2.9 Indirect Bilirubin 5.2 Aspartate Amino Transf 41 (AST/SGOT) Alanine Aminotransferase 28 (ALT/SGPT) Alkaline Phosphatase 95 Total Protein 6.0 Albumin 2.0 Physical Exam HEENT: scleral icterus, normocephalic; atraumatic; + jaundice. NECK: Neck is supple, no JVD, no lymphadenopathy. CHEST: Chest is clear to auscultation and percussion. CARDIAC: Regular rate and rhythm with no murmur gallop or rubs. ABDOMEN: firm, nondistended, nontender; no hepatosplenomegaly; bowel sounds are present in all four quadrants. EXTREMITIES: No clubbing, cyanosis, or edema. SKIN: Normal; no rash; + jaundice. PLASTICS PROCESS HAND: No focal deficits; alert and oriented times three. (Sofia Rubio) Assessment and Plan Plan - Upper GI bleed/hematemesis- S/P EGD on (11/30/16) ------> severe esophagitis, Alicia-garcia tear at the GE junction, short barretts, gastropathy, no bx done due to high INR No more hematemesis, there was old blood this morning. hgb stable - Coagulopathy/Thrombocytopenia secondary to liver disease - Anemia secondary to acute blood loss - Cirrhosis secondary to ethanol use- has been clean for few months. MELD Zapata 13, UNOS 21 - History of Escherichia coli spontaneous bacterial peritonitis Plan: - Advance diet as tolerated - Monitor hh - Notify GI for active bleed - Cont. Protonix - Agree with Tertiary eval for liver transplant - Supportive care - Patient seen and examined by Dr. Marie and myself and this note is written on his behalf. (Sofia Rubio) Physician Comments Patient was seen and examined, agree with above note and plan, overall guarded prognosis, consider evaluation in a IDP center. (Rome Marie MD) Sofia Rubio Dec 01, 2016 13:36 Rome Marie MD Dec 01, 2016 20:19
--- NOTE | 2016-12-01 17:19 | HHI.PR ---
Subjective Remarks tolerating po diet Objective Vitals Vital Signs Date Time Temp Pulse Resp B/P Pulse Ox O2 Delivery O2 Flow Rate FiO2 12/01/16 16:25 98.0 88 14 122/82 95 12/01/16 16:23 85 12/01/16 14:00 85 12/01/16 12:00 98.3 88 14 96/55 90 12/01/16 12:00 90 12/01/16 10:17 87 12/01/16 10:14 94 Nasal Cannula 3.00 12/01/16 08:00 98.0 90 14 160/82 90 12/01/16 08:00 85 12/01/16 06:00 82 12/01/16 04:00 97.4 90 14 141/74 97 12/01/16 04:00 90 12/01/16 02:00 87 12/01/16 00:00 86 12/01/16 00:00 98.2 86 17 133/66 97 11/30/16 22:00 91 11/30/16 20:21 98 Nasal Cannula 3.00 11/30/16 20:00 95 11/30/16 20:00 98.5 95 16 131/73 98 I/O 11/30/16 11/30/16 11/30/16 12/01/16 12/01/16 12/01/16 07:00 15:00 23:00 07:00 15:00 23:00 Intake Total 1121 ml 1627 ml 775 ml 873 ml 875 ml Output Total 525 ml 1250 ml 325 ml 250 ml 600 ml Balance 596 ml 377 ml 450 ml 623 ml 275 ml IV Total 1121 ml 1627 ml 275 ml 873 ml 875 ml Other 500 ml Output Urine Total 525 ml 1200 ml 325 ml 250 ml 600 ml Stool Total 0 ml Gastric Drainage Total 50 ml # Bowel Movements 0 0 0 1 Result Diagram: 12/01/16 0308 12/01/16 0308 Objective Remarks GENERAL: awake and alert, oriented x 3 SKIN: Warm and dry. HEAD: Normocephalic. EYES: No scleral icterus. No injection or drainage. NECK: Supple, trachea midline. No JVD or lymphadenopathy. CARDIOVASCULAR: Regular rate and rhythm without murmurs, gallops, or rubs. RESPIRATORY: Breath sounds equal bilaterally. No accessory muscle use. GASTROINTESTINAL: Abdomen soft, non-tender, nondistended. MUSCULOSKELETAL: No cyanosis, or edema. BACK: Nontender without obvious deformity. No CVA tenderness. Procedures /- EGD- severe esophagitis, gastritis A/P Assessment and Plan This is a 61yM with h/o alcoholic cirrhosis and recent e. coli sbp who presented with 2 episodes of hematemesis. he has remained stable. plan for EGD today. If he remains stable without evidence of active bleeding, he will be safe for transfer to the floor after EGD. From an overall functional decline standpoint, he has had a general decline in hepatic function over the last 3 months, and his MELD is now 22. He has been etoh free for the last 2 months. I think it is reasonable to start considering beginning the work-up for transplantation, since at present he does not have any absolute contraindication for this. Plan by systems: Neurologic: History of alcohol dependence RASS goal 0 Patient denies any active alcohol use Respiratory: Atelectasis Incentive spirometer to bedside Head of bed at 30 Wean oxygen by nasal cannula for SPO2 greater than 92% - increase activity- out of bed Cardiovascular: Monitor via telemetry Holding home propranolol in the setting of possible hemodynamically significant GI bleed Renal: -- Strict I/Os FEN/GI: Acute protein calorie malnutritionmoderate Cirrhosis secondary to ethanol use History of Escherichia coli spontaneous bacterial peritonitis Upper GI bleed S/P EGD- severe esophagitis, gastritis Ascites tolerating diet liberalize to qday CBC. daily coags. Ceftriaxone 1 g IV every 24 hours for SBP prophylaxis Daily LFTs, BMP Protonix infusion DC Octreotide Heme/ID: Coagulopathy secondary to liver disease Anemia secondary to acute blood loss Thrombocytopenia secondary to liver disease History of e coli spontaneous bacterial peritonitis s/p 2 units FFP 1/3. Goal hemoglobin greater than 7, INR less than 1.5 with active bleeding, platelets greater than 50,000 with active bleeding Rocephin 1 g IV every 24 hours for SBP prophylaxis Daily CBC Endocrine: Hyperglycemia of critical illness -- SSI, every 6 hours, medium scale HYpokalemia- replace po Prophylaxis: GI Prophylaxis Protonix infusion DVT Prophylaxis -- SCDs Holding pharmacologic DVT prophylaxis in the setting of acute upper GI bleed Lines: 2 large-bore peripheral IVs at all times. Transfer to medical floor. Increae activity Alex Gentile MD Dec 01, 2016 17:19 Alex Gentile MD Dec 01, 2016 17:19
[2016-12-02] VITALS: BP 136/69; PULSE 90; RESP 18; TEMP 98.8; O2SAT 97
[2016-12-02] MEDS: INSULIN NovoLIN REGULAR SUPPLEMENTAL SCALE SQ SCH
[2016-12-02] MEDS: CHLORHEXIDINE GLUCONATE 2 % 1 PACK (2 CLOTHS) TOP SCH (03:02)
[2016-12-02] MEDS: PANTOPRAZOLE 80 MG/100 ML NS IV SCH ×2 (03:45)
[2016-12-02 04:00] VITALS: BP 116/61; PULSE 90; RESP 18; TEMP 98.3; O2SAT 96
[2016-12-02 06:51] LABS: APTT (PATIENT) 41.1 SEC (24.3-30.1); INTERNATIONAL NORMALIZED RATIO 1.9 RATIO; PROTHROMBIN TIME - PATIENT 22.1 SEC (9.8-11.6)
[2016-12-02 07:14] LABS: BICARBONATE 27.5 MEQ/L (21.0-32.0); INDIRECT BILIRUBIN 5.3 MG/DL (0.0-0.8); POTASSIUM 3.3 MEQ/L (3.5-5.1); TOTAL BILIRUBIN ADULT 7.8 MG/DL (0.2-1.0)
[2016-12-02 07:35] LABS: HEMATOCRIT 24.5 % (39.0-51.0); MEAN CELL VOLUME 97.7 FL (80.0-100.0); MEAN CORPUSCULAR HEMOGLOBIN 35.1 PG (27.0-34.0); MEAN CORPUSCULAR HGB CONC 35.9 % (32.0-36.0); PLATELET COUNT 40 TH/MM3 (150-450); RED CELL DISTRIBUTION WIDTH 18.1 % (11.6-17.2)
[2016-12-02 08:07] VITALS: BP 121/62; PULSE 97; RESP 18; TEMP 97.8; O2SAT 92
[2016-12-02 08:16] LABS: REVIEW FLAG AUTO DIFF
[2016-12-02] MEDS: SODIUM CHLORIDE 0.9% FLUSH 5 ML FLUSH IV FLUSH SCH (08:50)
[2016-12-02] MEDS: cefTRIAXone INJ 1,000 MG in SODIUM CHLORIDE 0.9% INJ 100 ML IV SCH (08:50)
[2016-12-02 09:42] VITALS: O2SAT 94
--- NOTE | 2016-12-02 11:54 | HHI.GIFU ---
Subjective Remarks Pt ambulating about room. Denies n/v. No bleeding. tolerating diet. (Natalia Anderson) Objective Vitals I&O Vital Signs Date Time Temp Pulse Resp B/P Pulse Ox O2 Delivery O2 Flow Rate FiO2 12/02/16 09:42 94 Nasal Cannula 1.50 12/02/16 08:07 97.8 97 18 121/62 92 12/02/16 04:00 98.3 90 18 116/61 96 12/02/16 00:00 98.8 90 18 136/69 97 12/01/16 22:00 88 12/01/16 20:00 98.9 92 15 131/68 98 12/01/16 20:00 92 12/01/16 19:10 97 Nasal Cannula 3.00 12/01/16 18:10 92 12/01/16 16:25 98.0 88 14 122/82 95 12/01/16 16:23 85 12/01/16 14:00 85 12/01/16 12:00 98.3 88 14 96/55 90 12/01/16 12:00 90 I/O 12/01/16 12/01/16 12/01/16 12/02/16 12/02/16 12/02/16 07:00 15:00 23:00 07:00 15:00 23:00 Intake Total 873 ml 875 ml 643 ml 352 ml Output Total 250 ml 600 ml Balance 623 ml 275 ml 643 ml 352 ml Intake Oral 480 ml 240 ml IV Total 873 ml 875 ml 163 ml 112 ml Output Urine Total 250 ml 600 ml # Voids 1 1 # Bowel Movements 0 1 1 1 Laboratory Laboratory Tests Test 12/02/16 05:41 White Blood Count 3.0 Red Blood Count 2.50 Hemoglobin 8.8 Hematocrit 24.5 Mean Corpuscular Volume 97.7 Mean Corpuscular Hemoglobin 35.1 Mean Corpuscular Hemoglobin 35.9 Concent Red Cell Distribution Width 18.1 Platelet Count 40 Mean Platelet Volume 7.6 Prothrombin Time 22.1 Prothromb Time International 1.9 Ratio Activated Partial 41.1 Thromboplast Time Sodium Level 142 Potassium Level 3.3 Chloride Level 106 Carbon Dioxide Level 27.5 Anion Gap 9 Blood Urea Nitrogen 9 Creatinine 0.38 Estimat Glomerular Filtration 232 Rate Random Glucose 96 Calcium Level 7.4 Protein Corrected Calcium 8.0 Total Bilirubin 7.8 Direct Bilirubin 2.5 Indirect Bilirubin 5.3 Aspartate Amino Transf 35 (AST/SGOT) Alanine Aminotransferase 26 (ALT/SGPT) Alkaline Phosphatase 92 Total Protein 6.0 Albumin 1.9 Physical Exam HEENT: Normocephalic; atraumatic; + jaundice. NECK: Neck is supple, no JVD, no lymphadenopathy. CHEST: CTA CARDIAC: RRR ABDOMEN: Abdomen, nontender; hepatosplenomegaly; bowel sounds are present in all four quadrants. EXTREMITIES: No clubbing, cyanosis, or edema. SKIN: Normal; no rash; + jaundice. 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 (Natalia Anderson) Assessment and Plan Plan ASSESSMENT: - Upper GI bleed/hematemesis- S/P EGD on (11/30/16) ------> severe esophagitis, Alicia-garcia tear at the GE junction, short barretts, gastropathy, no bx done due to high INR No further bleeding. 8.8/24.5. PPI. - Coagulopathy/Thrombocytopenia secondary to liver disease. INR 1.9. - Anemia secondary to acute blood loss. Stable. No further bleeding. 8.8/ 24.5. - Cirrhosis secondary to ethanol use- has been clean for few months. MELD Zapata 13, UNOS 21 Plan: - Heart healthy diet - Cont. PPI - Monitor labs - Gi will sign off, please reconsult as needed - FU OVIDIO 2 weeks - Will need outpatient referral to tertiary for transplant evaluation - Patient seen and examined by Dr. Marie and myself and this note is written on his behalf. (Natalia Anderson) Physician Comments Patient was seen and examined, agree with above note and plan, over all guarded , pognosis, need evaluation by [facility]. we will FU as OP. (Rome Marie MD) Natalia Anderson Dec 02, 2016 11:54 Rome Marie MD Dec 03, 2016 07:36
[2016-12-02 12:33] VITALS: BP_SYST 104; BP_SYST 108; BP_DIAS 56; BP_DIAS 66; PULSE 107; PULSE 85; RESP 18; TEMP 98.1; TEMP 98.5; O2SAT 93; O2SAT 96
--- NOTE | 2016-12-02 13:27 | HHI.PR ---
Subjective Remarks tolerating po well, no abdominal discomfort no nausea or vomiting no melena or hematochezia Objective Vitals Vital Signs Date Time Temp Pulse Resp B/P Pulse Ox O2 Delivery O2 Flow Rate FiO2 12/02/16 12:33 98.1 107 18 108/56 93 12/02/16 09:42 94 Nasal Cannula 1.50 12/02/16 08:07 97.8 97 18 121/62 92 12/02/16 04:00 98.3 90 18 116/61 96 12/02/16 00:00 98.8 90 18 136/69 97 12/01/16 22:00 88 12/01/16 20:00 98.9 92 15 131/68 98 12/01/16 20:00 92 12/01/16 19:10 97 Nasal Cannula 3.00 12/01/16 18:10 92 12/01/16 16:25 98.0 88 14 122/82 95 12/01/16 16:23 85 12/01/16 14:00 85 I/O 12/01/16 12/01/16 12/01/16 12/02/16 12/02/16 12/02/16 07:00 15:00 23:00 07:00 15:00 23:00 Intake Total 873 ml 875 ml 643 ml 352 ml Output Total 250 ml 600 ml Balance 623 ml 275 ml 643 ml 352 ml Intake Oral 480 ml 240 ml IV Total 873 ml 875 ml 163 ml 112 ml Output Urine Total 250 ml 600 ml # Voids 1 1 # Bowel Movements 0 1 1 1 Result Diagram: 12/02/16 0541 12/02/16 0541 Objective Remarks GENERAL: awake and alert, oriented x 3 SKIN: Warm and dry. HEAD: Normocephalic. EYES: No scleral icterus. No injection or drainage. NECK: Supple, trachea midline. No JVD or lymphadenopathy. CARDIOVASCULAR: Regular rate and rhythm without murmurs, gallops, or rubs. RESPIRATORY: Breath sounds equal bilaterally. No accessory muscle use. GASTROINTESTINAL: Abdomen soft, non-tender,good bowel sounds MUSCULOSKELETAL: No cyanosis, or edema. BACK: Nontender without obvious deformity. No CVA tenderness. Procedures 11/30- EGD- severe esophagitis, gastritis A/P Assessment and Plan This is a 61yM with h/o alcoholic cirrhosis and recent e. coli sbp who presented with 2 episodes of hematemesis. he has remained stable. plan for EGD today. If he remains stable without evidence of active bleeding, he will be safe for transfer to the floor after EGD. From an overall functional decline standpoint, he has had a general decline in hepatic function over the last 3 months, and his MELD is now 22. He has been etoh free for the last 2 months. I think it is reasonable to start considering beginning the work-up for transplantation, since at present he does not have any absolute contraindication for this. Plan by systems: Neurologic: History of alcohol dependence RASS goal 0 Patient denies any active alcohol use Respiratory: Atelectasis Incentive spirometer to bedside Head of bed at 30 Wean oxygen by nasal cannula for SPO2 greater than 92% - increase activity- out of bed Cardiovascular: Monitor via telemetry Holding home propranolol in the setting of possible hemodynamically significant GI bleed Renal: -- Strict I/Os FEN/GI: Acute protein calorie malnutritionmoderate Cirrhosis secondary to ethanol use History of Escherichia coli spontaneous bacterial peritonitis Upper GI bleed S/P EGD- severe esophagitis, gastritis Ascites tolerating diet liberalize to qday CBC. daily coags. Ceftriaxone 1 g IV every 24 hours for SBP prophylaxis- will DC on DC Daily LFTs, BMP Protonix infusion- change to po PPI for DC Heme/ID: Coagulopathy secondary to liver disease Anemia secondary to acute blood loss Thrombocytopenia secondary to liver disease History of e coli spontaneous bacterial peritonitis s/p 2 units FFP 1/3. Goal hemoglobin greater than 7, INR less than 1.5 with active bleeding, platelets greater than 50,000 with active bleeding Rocephin 1 g IV every 24 hours for SBP prophylaxis Daily CBC Endocrine: Hyperglycemia of critical illness -- SSI, every 6 hours, medium scale HYpokalemia- replace po Prophylaxis: GI Prophylaxis Protonix infusion DVT Prophylaxis -- SCDs Holding pharmacologic DVT prophylaxis in the setting of acute upper GI bleed Lines: 2 large-bore peripheral IVs at all times. DC home today FF up with PCP in 3-5 days FF up with GI in 2 weeks Alex Gentile MD Dec 02, 2016 13:27
[2016-12-02] MEDS ORDERED: PANT40TA3 PO (13:37)
[2016-12-02] MEDS ORDERED: POTA20TA5 PO (13:38)
--- NOTE | 2016-12-02 13:43 | HHI.DS ---
Discharge Summary Admission Date Nov 28, 2016 at 22:59 Discharge Date: Dec 02, 2016 Admitting Diagnosis HEMATOCHEZIA (1) GIB (gastrointestinal bleeding) ICD Code: K92.2 Procedures 11/30- EGD- severe esophagitis, gastritis Brief History - From Admission This is a 61yM with history of ethanol cirrhosis who presents after 1 episode of vomiting bright red blood. He stated that earlier in the evening he was drinking a glass of water and then went to take a nap, and then woke up shortly after with a mild epigastric pain, nausea, and then vomited "a pint of blood". He immediately went to the ED, where he states he had 1 more episode of "small amount of bloody vomit". He denies diarrhea, dark tarry stools, bright red blood per rectum. denies fever, chills, abdominal pain currently, chest pain, shortness of breath. His MELD today is 22. Of note, he was recently inpatient for a recurrent right hemothorax, as well as e. coli spontaneous bacterial peritonitis. He has been followed by GI on an outpatient basis and they recently started him on propranolol. CBC/BMP: 12/02/16 0541 12/02/16 0541 Significant Findings Laboratory Tests Test 11/29/16 11/29/16 11/30/16 11/30/16 19:52 20:00 00:00 05:24 Hemoglobin 9.8 GM/DL 9.2 GM/DL (13.0-17.0) (13.0-17.0) Hematocrit 27.4 % 25.9 % (39.0-51.0) (39.0-51.0) Prothrombin Time 19.2 SEC 19.5 SEC (9.8-11.6) (9.8-11.6) Activated Partial 37.1 SEC 37.3 SEC Thromboplast Time (24.3-30.1) (24.3-30.1) Chloride Level 108 MEQ/L (98-107) Creatinine 0.48 MG/DL (0.60-1.30) Calcium Level 7.8 MG/DL (8.5-10.1) Total Bilirubin 10.3 MG/DL (0.2-1.0) Direct Bilirubin 3.6 MG/DL (0.0-0.2) Indirect Bilirubin 6.7 MG/DL (0.0-0.8) Aspartate Amino Transf 43 U/L (15-37) (AST/SGOT) Albumin 2.1 GM/DL (3.4-5.0) Test 11/30/16 12/01/16 12/02/16 06:24 03:08 05:41 White Blood Count 3.9 TH/MM3 3.8 TH/MM3 3.0 TH/MM3 (4.0-11.0) (4.0-11.0) (4.0-11.0) Red Blood Count 2.69 MIL/MM3 2.56 MIL/MM3 2.50 MIL/MM3 (4.50-5.90) (4.50-5.90) (4.50-5.90) Hemoglobin 9.5 GM/DL 8.8 GM/DL 8.8 GM/DL (13.0-17.0) (13.0-17.0) (13.0-17.0) Hematocrit 26.1 % 24.9 % 24.5 % (39.0-51.0) (39.0-51.0) (39.0-51.0) Mean Corpuscular Hemoglobin 35.1 PG 34.5 PG 35.1 PG (27.0-34.0) (27.0-34.0) (27.0-34.0) Mean Corpuscular Hemoglobin 36.3 % Concent (32.0-36.0) Red Cell Distribution Width 18.5 % 18.6 % 18.1 % (11.6-17.2) (11.6-17.2) (11.6-17.2) Platelet Count 39 TH/MM3 40 TH/MM3 40 TH/MM3 (150-450) (150-450) (150-450) Prothrombin Time 20.4 SEC 20.9 SEC 22.1 SEC (9.8-11.6) (9.8-11.6) (9.8-11.6) Activated Partial 36.9 SEC 40.7 SEC 41.1 SEC Thromboplast Time (24.3-30.1) (24.3-30.1) (24.3-30.1) Potassium Level 3.4 MEQ/L 3.3 MEQ/L (3.5-5.1) (3.5-5.1) Creatinine 0.44 MG/DL 0.38 MG/DL (0.60-1.30) (0.60-1.30) Random Glucose 108 MG/DL (74-106) Calcium Level 7.5 MG/DL 7.4 MG/DL (8.5-10.1) (8.5-10.1) Total Bilirubin 8.1 MG/DL 7.8 MG/DL (0.2-1.0) (0.2-1.0) Direct Bilirubin 2.9 MG/DL 2.5 MG/DL (0.0-0.2) (0.0-0.2) Indirect Bilirubin 5.2 MG/DL 5.3 MG/DL (0.0-0.8) (0.0-0.8) Aspartate Amino Transf 41 U/L (15-37) (AST/SGOT) Total Protein 6.0 GM/DL 6.0 GM/DL (6.4-8.2) (6.4-8.2) Albumin 2.0 GM/DL 1.9 GM/DL (3.4-5.0) (3.4-5.0) Protein Corrected Calcium 8.0 MG/DL (8.5-10.1) PE at Discharge GENERAL: awake and alert, oriented x 3 SKIN: Warm and dry. HEAD: Normocephalic. EYES: No scleral icterus. No injection or drainage. NECK: Supple, trachea midline. No JVD or lymphadenopathy. CARDIOVASCULAR: Regular rate and rhythm without murmurs, gallops, or rubs. RESPIRATORY: Breath sounds equal bilaterally. No accessory muscle use. GASTROINTESTINAL: Abdomen soft, non-tender,good bowel sounds MUSCULOSKELETAL: No cyanosis, or edema. BACK: Nontender without obvious deformity. No CVA tenderness. Pt update on day of discharge awake and alert, very motivated no bleeding VS stable, up saadia mbulating no dizziness aware of ffup[ and diangosis- findings explained to her Hospital Course This is a 61yM with h/o alcoholic cirrhosis and recent e. coli sbp who presented with 2 episodes of hematemesis. he has remained stable. plan for EGD today. If he remains stable without evidence of active bleeding, he will be safe for transfer to the floor after EGD. From an overall functional decline standpoint, he has had a general decline in hepatic function over the last 3 months, and his MELD is now 22. He has been etoh free for the last 2 months. I think it is reasonable to start considering beginning the work-up for transplantation, since at present he does not have any absolute contraindication for this. Plan by systems: Neurologic: History of alcohol dependence RASS goal 0 Patient denies any active alcohol use Respiratory: Atelectasis Incentive spirometer to bedside Head of bed at 30 Wean oxygen by nasal cannula for SPO2 greater than 92% - increase activity- out of bed Cardiovascular: Monitor via telemetry Holding home propranolol in the setting of possible hemodynamically significant GI bleed Renal: -- Strict I/Os FEN/GI: Acute protein calorie malnutritionmoderate Cirrhosis secondary to ethanol use History of Escherichia coli spontaneous bacterial peritonitis Upper GI bleed S/P EGD- severe esophagitis, gastritis Ascites tolerating diet liberalize to qday CBC. daily coags. Ceftriaxone 1 g IV every 24 hours for SBP prophylaxis- will DC on DC Daily LFTs, BMP Protonix infusion- change to po PPI for DC Heme/ID: Coagulopathy secondary to liver disease Anemia secondary to acute blood loss Thrombocytopenia secondary to liver disease History of e coli spontaneous bacterial peritonitis s/p 2 units FFP 1/3. Goal hemoglobin greater than 7, INR less than 1.5 with active bleeding, platelets greater than 50,000 with active bleeding Rocephin 1 g IV every 24 hours for SBP prophylaxis Daily CBC Endocrine: Hyperglycemia of critical illness -- SSI, every 6 hours, medium scale HYpokalemia- replace po Prophylaxis: GI Prophylaxis po ppi DVT Prophylaxis -- SCDs Holding pharmacologic DVT prophylaxis in the setting of acute upper GI bleed Lines: 2 large-bore peripheral IVs at all times. DC home today FF up with PCP in 3-5 days FF up with GI in 2 weeks Pt Condition on Discharge: Good Discharge Disposition: Discharge Home Discharge Time: <= 30 minutes Discharge Instructions DIET: Follow Instructions for: As Tolerated, No Restrictions Activities you can perform: Weight Bearing as William Follow up Referrals: Gastroenterology - 2 Weeks @ [facility] PCP Follow-up - 12/05/16 with KARAVAR New Orders: BASIC METABOLIC PROF - 12/06/16 New Medications: Pantoprazole (Pantoprazole) 40 Mg Tab 40 MG PO DAILY eso/gastri #30 Ref 2 TAB Potassium Chloride Microencaps (Potassium Chloride Microencaps) 20 Meq Tab 20 MEQ PO Q12HR electr #14 TAB Discontinued Medications: Amoxicillin-Clavulanate (Augmentin) 500-125 mg Tab 500 MG PO Q8HR infection Days 30 TAB Lactobacillus Acidophilus (Lactinex) 1 Chew 1 TAB CHEW DAILY Nutritional Supplement Days 30 Ref 0 TAB Metoprolol Tartrate (Metoprolol Tartrate) 25 Mg Tab 25 MG PO DAILY PRN BP > 110 #30 Ref 0 TAB Alex Gentile MD Dec 02, 2016 13:42
[2016-12-02] MEDS ORDERED: POTASSIUM CHLORIDE 20 MEQ CONTROLLED RELEASE TAB PO SCH (14:00)
[2016-12-03] MEDS ORDERED: PANTOPRAZOLE SOD 40 MG DELAYED RELEASE TAB PO SCH (09:00)
== END 2016-12-02 15:38 | disposition home or self-care (01) | DRG 369 ==
LOC: PHED 20:33 → PHEDA 22:59 → PHEDH 11-29 02:59 → HIMW 11-29 05:20 → N04B 12-01 23:58
PROVIDERS: ADMIT Internal Medicine; ATTEND Internal Medicine
PROC: 0DJ08ZZ Inspection of Upper Intestinal Tract, Via Natural or Artificial Opening Endoscopic (ICD-10-PCS; principal; 2016-11-30 15:30)
DX: K22.6 Gastro-esophageal laceration-hemorrhage syndrome (principal); J98.11 Atelectasis; D68.4 Acquired coagulation factor deficiency; I42.9 Cardiomyopathy, unspecified; E44.0 Moderate protein-calorie malnutrition; D69.59 Other secondary thrombocytopenia; D62 Acute posthemorrhagic anemia; K70.31 Alcoholic cirrhosis of liver with ascites; R73.9 Hyperglycemia, unspecified; K20.9 Esophagitis, unspecified; K22.70 Barrett's esophagus without dysplasia; K31.9 Disease of stomach and duodenum, unspecified; K29.70 Gastritis, unspecified, without bleeding; E87.6 Hypokalemia; F10.20 Alcohol dependence, uncomplicated; Z23 Encounter for immunization
CPT/HCPCS: 36430; 80048; 80053; 80076; 82948; 84155; 85014; 85018; 85025; 85027; 85610; 85730; 86850; 86900; 86901; 86920; 86927; 87641; 90686; 90732; 93005; 94150; 94640; 94667; 96361; 96365; 96368; 96375; C9113; J0696; J2250; J2354; J2405; J7030; J7040; J7050; P9016; P9017; Q2038

== ENCOUNTER 2017-01-08 20:33 | Inpatient (IN) | payer BC ==
[~2017-01-08] VITALS: Ht 175.3 cm; Wt 65.5 kg
[~2017-01-08 20:33] MED LIST changes: -AUGM500T7 PO; -LACTCHW3 CHEW; +PANT40TA3 PO; +POTA20TA5 PO; -PROP20TA3 PO
[2017-01-08 20:35] VITALS: BP 100/55; PULSE 82; RESP 16; TEMP 98.2; O2SAT 98
[2017-01-08] MEDS ORDERED: SODIUM CHLORIDE 0.9% FLUSH 5 ML FLUSH IVF PRN (21:00)
[2017-01-08 21:23] VITALS: BP 132/61; PULSE 120; RESP 16; O2SAT 100
[2017-01-08] MEDS ORDERED: SODIUM CHLOR 0.9% 1000 ML INJ 1,000 ML IV ONE (21:30)
[2017-01-08 21:48] LABS: AUTOMATED NEUTROPHIL # 4.3 TH/MM3 (1.8-7.7); BASOPHIL % 0.4 % (0.0-2.0); EOSINOPHIL # 0.2 TH/MM3 (0-0.4); EOSINOPHIL % 3.2 % (0.0-4.0); HEMATOCRIT 24.3 % (39.0-51.0); LYMPH % 12.7 % (9.0-44.0); LYMPHOCYTE # 0.7 TH/MM3 (1.0-4.8); MEAN CELL VOLUME 102.3 FL (80.0-100.0); MEAN CORPUSCULAR HEMOGLOBIN 36.7 PG (27.0-34.0); MEAN CORPUSCULAR HGB CONC 35.8 % (32.0-36.0); MONO % 9.9 % (0.0-8.0); NEUT % 73.8 % (16.0-70.0); PLATELET COUNT 59 TH/MM3 (150-450); RED BLOOD COUNT 2.37 MIL/MM3 (4.50-5.90); RED CELL DISTRIBUTION WIDTH 14.6 % (11.6-17.2); WHITE BLOOD COUNT 5.8 TH/MM3 (4.0-11.0)
[2017-01-08 21:53] LABS: ANION GAP 7 MEQ/L (5-15); AST (GOT) 46 U/L (15-37); BICARBONATE 29.4 MEQ/L (21.0-32.0); BLOOD UREA NITROGEN 31 MG/DL (7-18); CHLORIDE 103 MEQ/L (98-107); GLOMERULAR FILTRATION RATE 123 ML/MIN (>89); POTASSIUM 4.2 MEQ/L (3.5-5.1); SODIUM (NA) 139 MEQ/L (136-145)
[2017-01-08 21:54] LABS: APTT (PATIENT) 39.3 SEC (24.3-30.1); INTERNATIONAL NORMALIZED RATIO 1.9 RATIO; PROTHROMBIN TIME - PATIENT 22.1 SEC (9.8-11.6)
[2017-01-08 21:56] LABS: ALKALINE PHOSPHATASE 100 U/L (45-117); ALT (GPT) 29 U/L (12-78); TOTAL BILIRUBIN ADULT 7.6 MG/DL (0.2-1.0)
[2017-01-08 22:23] LABS: HEMO FLAGS AUTO DIFF
[2017-01-08 22:24] LABS: PLATELET ESTIMATE SMEAR LOW (NORMAL); PLATELET MORPHOLOGY NORMAL (NORMAL); SCAN/DIFF AUTO DIFF CONFIRMED
[2017-01-08] MEDS ORDERED: OCTREOTIDE INJ 100 MCG/ML VIAL IV PUSH ONE (23:00)
[2017-01-08] MEDS ORDERED: PANTOPRAZOLE SODIUM 40 MG VIAL IV PUSH ONE (23:00)
[2017-01-08 23:13] VITALS: BP 123/58; PULSE 112; RESP 16; O2SAT 100
--- NOTE | 2017-01-08 23:21 | PD ---
HPI Chief Complaint: GI Complaint Time Seen by Provider: 20:58 Travel History International Travel<30 days: No Contact w/Intl Traveler<30days: No Traveled to known affect area: No History of Present Illness HPI 61-year-old male with a history of liver failure presents the emergency department for evaluation of an episode of hematemesis he had earlier today. Patient apparently had a history of esophageal bleeding in the past. Patient states he did have an episode of weakness and dizziness as well as headache which caused him to come into the ER. PFSH Past Medical History Anemia: Yes (thrombocytopenia ) Asthma: No Autoimmune Disease: No Anxiety: No Depression: No Cancer: No Cardiovascular Problems: No Cirrhosis: Yes (Cirrhosis of the liver) COPD: No Cerebrovascular Accident: No Diabetes: No Diminished Hearing: No Endocrine: No Genitourinary: Yes Headaches: No Immune Disorder: No Kidney Stones: Yes Medical other: Yes ([facility] LIVER TRANSPLANT) Musculoskeletal: No Neurologic: Yes Psychiatric: No Reproductive: No Respiratory: Yes (Rt chest tubes) Migraines: No Renal Failure: No Seizures: No Sickle Cell Disease: No Sleep Apnea: No Thyroid Disease: No Past Surgical History Abdominal Surgery: No AICD: No Arteriovenous Shunt: No Cardiac Surgery: No Ear Surgery: No Endocrine Surgery: No Eye Surgery: No Genitourinary Surgery: No Gynecologic Surgery: No Insulin Pump: No Joint Replacement: No Oral Surgery: No Pacemaker: No Thoracic Surgery: No Other Surgery: Yes (R ELBOW BONE SPUR REMOVAL, Rt chest tubes for pleural effusion Aug 2016) Social History Alcohol Use: No Tobacco Use: No Substance Use: No Allergies-Medications (Allergen,Severity, Reaction): Coded Allergies: No Known Allergies (Unverified , 01/08/17) Reported Meds & Prescriptions Reported Meds & Active Scripts Active No Active Prescriptions or Reported Medications Review of Systems Except as stated in HPI: all other systems reviewed are Neg Physical Exam Narrative GENERAL: Well-developed, thin obvious jaundice and icteric in no obvious distress. SKIN: Warm and dry. jaundice HEAD: Atraumatic. Normocephalic. EYES: Pupils equal and round. Scleral icterus. No injection or drainage. ENT: No nasal bleeding or discharge. Mucous membranes pink and moist. NECK: Trachea midline. No JVD. CARDIOVASCULAR: Regular rate and rhythm. No murmur appreciated. RESPIRATORY: No accessory muscle use. Clear to auscultation. Breath sounds equal bilaterally. GASTROINTESTINAL: Abdomen soft, non-tender, nondistended. Hepatic and splenic margins not palpable. MUSCULOSKELETAL: No obvious deformities. No clubbing. No cyanosis. No edema. NEUROLOGICAL: Awake and alert. No obvious cranial nerve deficits. Motor grossly within normal limits. Normal speech. PSYCHIATRIC: Appropriate mood and affect; insight and judgment normal. Data Data Last Documented VS Vital Signs Date Time Temp Pulse Resp B/P Pulse Ox O2 Delivery O2 Flow Rate FiO2 01/08/17 23:13 112 16 123/58 100 Room Air 01/08/17 20:35 98.2 Orders Complete Blood Count With Diff (01/08/17 20:58) Comprehensive Metabolic Panel (01/08/17 20:58) Lipase (01/08/17 20:58) Lactic Acid (01/08/17 20:58) Prothrombin Time / Inr (Pt) (01/08/17 20:58) Act Partial Throm Time (Ptt) (01/08/17 20:58) Urinalysis - C+S If Indicated (01/08/17 20:58) Iv Access Insert/Monitor (01/08/17 20:58) Ecg Monitoring (01/08/17 20:58) Oximetry (01/08/17 20:58) Sodium Chloride 0.9% Flush (Ns Flush) (01/08/17 21:00) Electrocardiogram (01/08/17 20:58) Sodium Chlor 0.9% 1000 Ml Inj (Ns 1000 M (01/08/17 21:30) Type And Screen (01/08/17 21:17) Pantoprazole Inj (Protonix Inj) (01/08/17 23:00) Octreotide Inj (Sandostatin Inj) (01/08/17 23:00) Admit Order (Ed Use Only) (01/08/17 ) Ondansetron Inj (Zofran Inj) (01/08/17 23:27) Labs Laboratory Tests Test 01/08/17 21:15 White Blood Count 5.8 TH/MM3 Red Blood Count 2.37 MIL/MM3 Hemoglobin 8.7 GM/DL Hematocrit 24.3 % Mean Corpuscular Volume 102.3 FL Mean Corpuscular Hemoglobin 36.7 PG Mean Corpuscular Hemoglobin 35.8 % Concent Red Cell Distribution Width 14.6 % Platelet Count 59 TH/MM3 Mean Platelet Volume 8.1 FL Neutrophils (%) (Auto) 73.8 % Lymphocytes (%) (Auto) 12.7 % Monocytes (%) (Auto) 9.9 % Eosinophils (%) (Auto) 3.2 % Basophils (%) (Auto) 0.4 % Neutrophils # (Auto) 4.3 TH/MM3 Lymphocytes # (Auto) 0.7 TH/MM3 Monocytes # (Auto) 0.6 TH/MM3 Eosinophils # (Auto) 0.2 TH/MM3 Basophils # (Auto) 0.0 TH/MM3 CBC Comment AUTO DIFF Differential Comment AUTO DIFF CONFIRMED Platelet Estimate LOW Platelet Morphology Comment NORMAL Prothrombin Time 22.1 SEC Prothromb Time International 1.9 RATIO Ratio Activated Partial 39.3 SEC Thromboplast Time Sodium Level 139 MEQ/L Potassium Level 4.2 MEQ/L Chloride Level 103 MEQ/L Carbon Dioxide Level 29.4 MEQ/L Anion Gap 7 MEQ/L Blood Urea Nitrogen 31 MG/DL Creatinine 0.66 MG/DL Estimat Glomerular Filtration 123 ML/MIN Rate Random Glucose 110 MG/DL Lactic Acid Level 3.8 mmol/L Calcium Level 8.3 MG/DL Total Bilirubin 7.6 MG/DL Aspartate Amino Transf 46 U/L (AST/SGOT) Alanine Aminotransferase 29 U/L (ALT/SGPT) Alkaline Phosphatase 100 U/L Total Protein 7.0 GM/DL Albumin 2.2 GM/DL Lipase 225 U/L MDM Medical Decision Making Medical Screen Exam Complete: Yes Emergency Medical Condition: Yes Interpretation(s) EKG shows normal sinus rhythm with a right bundle branch block, normal axis. No acute ST-T changes when compared to November 2016tracing. This abnormal EKG. Differential Diagnosis Anemia, upper GI bleed, variceal bleed, liver failure, coagulopathy. Narrative Course Patient is 61-year-old male presents emergency department for evaluation of hematemesis. Patient has a history of liver failure and a Alicia-Dyson tear based on his previous documentation. Patient very stable appearance while in the emergency department however he is somewhat tachycardic. He was given a liter of normal saline. Orders for Zofran, octreotide and protonic. Patient did not have any emesis in the first 3 hours while in the emergency department. Plan was for admission as he is anemic and has an elevated INR which. About the baseline for the patient. He was discussed with Dr. Caballero for admission who is agreeable. Shortly after discussing and dispositioning the patient patient did have an episode of bright red emesis to approximately 3-400 cc. is all for car was consult. And recommends platelet transfusion and ICU admission. He will see the patient in consultation. Diagnosis Primary Impression: GIB (gastrointestinal bleeding) Qualified Code: K92.2 - Gastrointestinal hemorrhage, unspecified gastrointestinal hemorrhage type Additional Impressions: Liver disease Lactic acidosis Thrombocytopenia Coagulopathy Macrocytic anemia Admitting Information Admitting Physician Requests: Admit Scripts No Active Prescriptions or Reported Meds Condition: Tomer Galeano MD Jan 08, 2017 23:20
[2017-01-08] MEDS ORDERED: ONDANSETRON HCL 4 MG/2 ML VIAL ONE (23:27)
[2017-01-08] MEDS ORDERED: SODIUM CHLOR 0.9% 250 ML INJ 250 ML IV ONE (23:45)
[2017-01-09] VITALS (21 sets, daily range): BP systolic 107–131; BP diastolic 55–68; PULSE 80–112; RESP 12–20; TEMP 97.9–98.7; O2SAT 93–100
--- NOTE | 2017-01-09 00:29 | HHI.HP ---
HPI Service Critical Care Medicine Primary Care Physician Juan Manuel Parisi MD Admission Diagnosis Upper GI Bleeding, Elevated INR. Diagnosis: Travel History International Travel<30 Days: No Contact w/Intl Traveler <30 Da: No Traveled to Known Affected Are: No History of Present Illness 61 yo male with PMH of EtOH abuse and cirrhosis who [place] [facility]emesis. He states that he has been constipated for the last couple of days and that in the morning of 01/08/17 he had a couple of bowel movements that he stated was were dark but were not melena. He states he vomited about a half of a pint of dark blood with clots around 1:30 in the afternoon 01/08. He has continued to feel lightheaded which prompted emergency department evaluation. He denies abdominal pain though he states he does intermittently have some abdominal cramping that is chronic. He has been admitted in November for hematemesis and had an EGD on 11/30/[address] Marie that demonstrated a Alicia-Dyson tear at the GE junction, esophagitis, gastropathy. He followed up with Dr. Serra on an outpatient basis and had been referred to [facility] for liver transplant evaluation. He has followed up with this and states workup is ongoing. His blood pressure has been 100/55- 132/61. Hgb is 8.7 and prior hemoglobin was 8.8 on 12/02/16. INR is 1.9 and platelet count is 59. Denies fever. He was given Protonix bolus and octreotide in the emergency department. While in the emergency department he had a second episode of emesis. Patient states this was about a half a cup of blood. Review of Systems Constitutional: COMPLAINS OF: Dizziness Gastrointestinal: COMPLAINS OF: Nausea, Vomiting Past Family Social History Allergies: Coded Allergies: No Known Allergies (Unverified , 01/08/17) Past Medical History History of daily alcohol use Cirrhosis Kidney stones Esophagitis Hemothorax following a fall Past Surgical History Bone spur removed from right elbow Lithotripsy for nephrolithiasis Thoracentesis 04/11/14 Paracentesis with 1200 cc removed 10/06/16 Chest tube placement 09/03/17 for hemothorax Pleurx catheter placement 09/23/16 Reported Medications Currently not on any home medications. Previously on Inderal but it was discontinue during his last hospitalization Family History Mother of breast cancer in her mid 50s. Father at age 63 from myocardial infarction. Social History Lifetime nonsmoker States he previously drank 6 beers per day per for 40 years but quit drinking in March 2016 Denies use of illicit drugs He is originally from [place]. He lives in [place] for many years. His sister lives in [place]. He has been living in [place] for the last 25 years. Currently resides in [place]. Physical Exam Vital Signs Vital Signs Date Time Temp Pulse Resp B/P Pulse Ox O2 Delivery O2 Flow Rate FiO2 01/09/17 00:06 98.7 112 16 120/59 100 Room Air 01/08/17 23:13 112 16 123/58 100 Room Air 01/08/17 21:23 120 16 132/61 100 Room Air 01/08/17 21:23 16 Room Air 01/08/17 20:35 98.2 82 16 100/55 98 Room Air Physical Exam Temp 98.2 pulse 114 blood pressure 120/59 percent on room air GENERAL: Well-nourished, well-developed jaundiced patient, pleasant and talkative laying in ED [place]. SKIN: Warm and dry. HEAD: Atraumatic. Normocephalic. EYES: Pupils equal and round. + icterus. ENT: No nasal bleeding or discharge. Mucous membranes pink NECK: Trachea midline. No JVD. CARDIOVASCULAR: tachycardic, regular, no murmurs rubs or gallops appreciated.. RESPIRATORY: breathing comfortably on RA without accessory muscle use. On RA. GASTROINTESTINAL: Abdomen soft, non-tender, nondistended. .Bowel sounds present. MUSCULOSKELETAL: Extremities without clubbing, cyanosis, or edema. NEUROLOGICAL: Awake and alert. No obvious cranial nerve deficits. Motor grossly within normal limits. Normal speech. Oriented x3 Laboratory Laboratory Tests Test 01/08/17 01/08/17 21:15 23:32 White Blood Count 5.8 Red Blood Count 2.37 Hemoglobin 8.7 Hematocrit 24.3 Mean Corpuscular Volume 102.3 Mean Corpuscular Hemoglobin 36.7 Mean Corpuscular Hemoglobin 35.8 Concent Red Cell Distribution Width 14.6 Platelet Count 59 Mean Platelet Volume 8.1 Neutrophils (%) (Auto) 73.8 Lymphocytes (%) (Auto) 12.7 Monocytes (%) (Auto) 9.9 Eosinophils (%) (Auto) 3.2 Basophils (%) (Auto) 0.4 Neutrophils # (Auto) 4.3 Lymphocytes # (Auto) 0.7 Monocytes # (Auto) 0.6 Eosinophils # (Auto) 0.2 Basophils # (Auto) 0.0 CBC Comment AUTO DIFF Differential Comment AUTO DIFF CONFIRMED Platelet Estimate LOW Platelet Morphology Comment NORMAL Prothrombin Time 22.1 Prothromb Time International 1.9 Ratio Activated Partial 39.3 Thromboplast Time Sodium Level 139 Potassium Level 4.2 Chloride Level 103 Carbon Dioxide Level 29.4 Anion Gap 7 Blood Urea Nitrogen 31 Creatinine 0.66 Estimat Glomerular Filtration 123 Rate Random Glucose 110 Lactic Acid Level 3.8 Calcium Level 8.3 Total Bilirubin 7.6 Aspartate Amino Transf 46 (AST/SGOT) Alanine Aminotransferase 29 (ALT/SGPT) Alkaline Phosphatase 100 Total Protein 7.0 Albumin 2.2 Lipase 225 Blood Bank Comment Result Diagram: 01/08/17211401/08/172114 Assessment and Plan Assessment and Plan NEURO: H/o daily EtOH use Insomnia last drink March 2016 Restoril 15 mg po qhs prn sleep. Morphine 2 mg IV q2 hours prn abdominal pain. RESP: On RA CV: Monitor hemodynamics GI: Hepatic cirrhosis Bonnie Downing C, MELD 21 History of esophagitis Nothing by mouth. Protonix and octreotide drip Serial hgb as per below. Address thrombocytopenia and coagulopathy as per below. Viral hepatitis panel negative 04/11 GI consulted, ED physician discussed with Dr. Wadsworth. Outpatient workup per [place] for liver transplant Zofran prn nausea. FEN/RENAL: Lactic acidemia - secondary to hemorrhage. Will followup. Normal renal function. He is voiding. Monitor intake and output. Monitor electrolytes and replace as indicated per ICU electrolyte replacement protocol. ID: Monitor for evidence of infection. Rocephin 1 g IV daily for SBP prophylaxis. HEME: Acute blood loss overlying chronic anemia h/o Chronic leukopenia Coagulopathy secondary to cirrhosis Chronic thrombocytopenia secondary to cirrhosis Vitamin K 10 mg IV daily 3 doses. Confused to units FFP 4 INR 1.9. Transfuse 1 unit platelet pheresis. Serial hemoglobin every 6 hours with transfusion as indicated based on hemodynamics or hemoglobin less than 7 Type and hold 3 units PRBC. ENDO: Euglycemic PROPH: SCDs for DVT prophylaxis. Protonix drip as per above ACCESS: Has a 20/22 gauge twin cath in place. Will obtain an additional PIV site , discussed with ED RN. Level III H&P Vandana Caballero MD Jan 09, 2017 00:28
[2017-01-09] MEDS ORDERED: SODIUM CHLORIDE 0.9% FLUSH 5 ML FLUSH IV FLUSH PRN (01:00)
[2017-01-09] MEDS ORDERED: ONDANSETRON HCL 4 MG/2 ML VIAL IV PRN (01:00)
[2017-01-09] MEDS ORDERED: CHLORHEXIDINE GLUCONATE 2 % 1 PACK (2 CLOTHS) TOP PRN (01:00)
[2017-01-09] MEDS ORDERED: SODIUM CHLOR 0.9% 250 ML INJ 250 ML IV ONE ×2 (01:00→01:30)
[2017-01-09] MEDS ORDERED: MISCELLANEOUS NURSING INFORMATION XX SCH (01:00)
[2017-01-09] MEDS ORDERED: ONDANSETRON HCL 4 MG/2 ML VIAL IV PUSH ONE (01:30)
[2017-01-09] MEDS: cefTRIAXone INJ 1,000 MG in SODIUM CHLORIDE 0.9% INJ 100 ML IV SCH (01:32)
[2017-01-09] MEDS: SODIUM CHLOR 0.9% 1000 ML INJ 1,000 ML IV SCH ×2 (01:32→12:00)
[2017-01-09] MEDS ORDERED: MAGNESIUM SULFATE INJ 4 GM in SODIUM CHLORIDE 0.9% INJ 92 ML IV PRN (01:45)
[2017-01-09] MEDS ORDERED: POTASSIUM PHOSPHATE MONOBASIC 500 MG TAB PO/TUBE PRN (01:45)
[2017-01-09] MEDS ORDERED: POTASSIUM CHLOR 40 MEQ PREMIX 100 ML IV PRN ×2 (01:45)
[2017-01-09] MEDS ORDERED: SODIUM PHOSPHATE INJ 30 MMOL in SODIUM CHLOR 0.9% 250 ML INJ 240 ML IV PRN (01:45)
[2017-01-09] MEDS ORDERED: POTASSIUM PHOSPHATE INJ 30 MMOL in SODIUM CHLOR 0.9% 250 ML INJ 250 ML IV PRN (01:45)
[2017-01-09] MEDS ORDERED: POTASSIUM PHOSPHATE MONOBASIC 500 MG TAB PO PRN (01:45)
[2017-01-09] MEDS ORDERED: POTASSIUM CL 40 MEQ/30 ML LIQ UDC PO/TUBE PRN ×2 (01:45)
[2017-01-09] MEDS ORDERED: MAGNESIUM OXIDE 400 MG TAB PO PRN (01:45)
[2017-01-09] MEDS ORDERED: MAGNESIUM SULFATE INJ 2 GM in SODIUM CHLORIDE 0.9% INJ 96 ML IV PRN (01:45)
[2017-01-09] MEDS ORDERED: POTASSIUM CHLOR 20 MEQ PREMIX 100 ML IV PRN ×2 (01:45)
[2017-01-09] MEDS: PANTOPRAZOLE INJ 80 MG in SODIUM CHLORIDE 0.9% INJ 100 ML IV SCH ×3 (01:56→21:44)
[2017-01-09] MEDS: PHYTONADIONE INJ 10 MG in SODIUM CHLORIDE 0.9% INJ 50 ML IV SCH ×2 (01:56→09:00)
[2017-01-09] MEDS ORDERED: PANTOPRAZOLE IV ONE (02:00)
[2017-01-09] MEDS ORDERED: MORPHINE SULFATE 4 MG/ML INJ IV PUSH PRN (02:00)
[2017-01-09] MEDS ORDERED: SODIUM CHLORIDE 0.9% IV ONE (02:00)
[2017-01-09] MEDS: OCTREOTIDE INJ 500 MCG in SODIUM CHLORID 0.9% 500 ML INJ 499.5 ML IV SCH ×3 (02:47→21:44)
[2017-01-09 03:12] LABS: BLOOD, URINE SMALL (NEG); GLUCOSE,URINE NEG (NEG); KETONE, URINE TRACE mg/dL (NEG); NITRITE,URINE NEG (NEG); URINE COLOR YELLOW (YELLW/STRAW)
[2017-01-09 03:18] LABS: COMMENT (UR) CULT NOT INDICATED; CULTURE IF INDICATED CULT NOT INDICATED
[2017-01-09] MEDS: CHLORHEXIDINE GLUCONATE 2 % 1 PACK (2 CLOTHS) TOP SCH (04:00)
[2017-01-09] MEDS: SODIUM CHLORIDE 0.9% FLUSH 5 ML FLUSH IV FLUSH SCH ×2 (08:53→21:00)
--- NOTE | 2017-01-09 09:47 | EKG ---
Date Performed: 01/08/2017 Time Performed: 22:56:29 PTAGE: 61 years EKG: SINUS TACHYCARDIA RIGHT BUNDLE BRANCH BLOCK ABNORMAL ECG Compared to prior tracing no signi ficant change PREVIOUS TRACING 01/08/2017 17.08.06 DOCTOR: Kvng Adams Interpretating Date/Time 01/09/2017 09:45:30
--- NOTE | 2017-01-09 09:47 | EKG ---
Date Performed: 01/08/2017 Time Performed: 21:09:06 PTAGE: 61 years EKG: SINUS TACHYCARDIA INDETERMINATE AXIS RIGHT BUNDLE BRANCH BLOCK ABNORMAL ECG Compared to sanjuanita or tracing no significant change PREVIOUS TRACING : 11/30/2016 10.14 DOCTOR: Kvng Adams Interpretating Date/Time 01/09/2017 09:45:39
--- NOTE | 2017-01-09 10:31 | PD.CONS ---
HPI History of Present Illness This is a 61 year old male with a hx of liver cirrhosis who came to the ER for evaluation of hematemesis. He reports that he was doing okay up until yesterday , when he started to have generalized weakness and some lightheadedness. He took a nap to see if that would help and when he got up to go to the bathroom, he vomited a moderate amount of dark bloody emesis and blood clots. He has intermittent dyspepsia, but denies any actual abdominal pain and denies any melena or hematochezia. He had the one episode and came to the ER for further evaluation. He reports that he was told back 15 months ago that he had a fatty liver and then in March, when he was hospitalized for severe anemia, he was told that he had liver cirrhosis. He is not on any medications for his stomach at home. He quit drinking in March. He was recently established with the [facility] last week for liver transplant evaluation. He reports that he had labs done and he was supposed to follow up today. (Natalia Anderson) [facility] Past Medical History Liver cirrhosis. GI Bleeding Alicia Dyson Tear Esophagitis Hemothorax after a fall Kidney stone Past Surgical History Bone spur removed from right elbow Lithotripsy for nephrolithiasis Thoracentesis Paracentesis Chest tube placement Pleurx catheter placement (Natalia Anderson) Coded Allergies: No Known Allergies (Unverified , 01/08/17) Medications Allergies Coded Allergies Type Severity Reaction Last Updated Verified No Known Allergies 01/08/17 No Active Scripts Medications Dose Route/Sig Days Date Category No Active Prescriptions or Reported Medications Rx Family History Mother from breast cancer Father from CAD/AK Social History States he previously drank 6 beers per day per for 40 years but quit drinking in March 2016 Denies use of illicit drugs (Natalia Anderson) Review of Systems Constitutional: COMPLAINS OF: Fatigue, DENIES: Weight loss, Change in appetite Respiratory: DENIES: Cough Cardiovascular: DENIES: Chest pain Gastrointestinal: COMPLAINS OF: Abdominal pain, Nausea, Vomiting, Hematemesis, DENIES: Black stools, Bloody stools, Constipation, Diarrhea Integumentary: DENIES: Abnormal pigmentation Hematologic/lymphatic: COMPLAINS OF: Bruising Neurologic: DENIES: Headache Psychiatric: DENIES: Confusion (Natalia Anderson ARMIN) GI Exam Vitals I&O Vital Signs Date Time Temp Pulse Resp B/P Pulse Ox O2 Delivery O2 Flow Rate FiO2 01/09/17 08:00 98.0 95 17 107/57 100 01/09/17 08:00 95 01/09/17 07:00 100 Room Air 01/09/17 07:00 98.0 95 17 107/57 100 01/09/17 06:00 98 01/09/17 06:00 98.0 98 20 110/58 98 01/09/17 04:10 97.9 102 15 116/57 96 01/09/17 04:00 102 01/09/17 04:00 97.9 102 15 116/57 96 01/09/17 03:15 97.9 102 13 121/57 99 01/09/17 02:55 98.2 101 16 113/59 100 Room Air 01/09/17 01:38 107 16 117/62 100 Room Air 01/09/17 00:15 112 16 117/62 100 Room Air 01/09/17 00:06 98.7 112 16 120/59 100 Room Air 01/08/17 23:13 112 16 123/58 100 Room Air 01/08/17 21:23 120 16 132/61 100 Room Air 01/08/17 21:23 16 Room Air 01/08/17 20:35 98.2 82 16 100/55 98 Room Air I/O 01/08/17 01/08/17 01/08/17 01/09/17 01/09/17 01/09/17 07:00 15:00 23:00 07:00 15:00 23:00 Intake Total 2241 ml Output Total 300 ml Balance 1941 ml Intake Oral 0 ml IV Total 609 ml FFP 642 ml Platelets 240 ml Other 750 ml Output Urine Total 300 ml # Voids 2 # Bowel Movements 0 Laboratory Test 01/08/17 01/08/17 01/09/17 01/09/17 21:15 23:32 00:58 01:22 White Blood Count 5.8 TH/MM3 Red Blood Count 2.37 MIL/MM3 Hemoglobin 8.7 GM/DL Hematocrit 24.3 % Mean Corpuscular Volume 102.3 FL Mean Corpuscular Hemoglobin 36.7 PG Mean Corpuscular Hemoglobin 35.8 % Concent Red Cell Distribution Width 14.6 % Platelet Count 59 TH/MM3 Mean Platelet Volume 8.1 FL Neutrophils (%) (Auto) 73.8 % Lymphocytes (%) (Auto) 12.7 % Monocytes (%) (Auto) 9.9 % Eosinophils (%) (Auto) 3.2 % Basophils (%) (Auto) 0.4 % Neutrophils # (Auto) 4.3 TH/MM3 Lymphocytes # (Auto) 0.7 TH/MM3 Monocytes # (Auto) 0.6 TH/MM3 Eosinophils # (Auto) 0.2 TH/MM3 Basophils # (Auto) 0.0 TH/MM3 CBC Comment AUTO DIFF Differential Comment AUTO DIFF CONFIRMED Platelet Estimate LOW Platelet Morphology Comment NORMAL Prothrombin Time 22.1 SEC Prothromb Time International 1.9 RATIO Ratio Activated Partial 39.3 SEC Thromboplast Time Sodium Level 139 MEQ/L Potassium Level 4.2 MEQ/L Chloride Level 103 MEQ/L Carbon Dioxide Level 29.4 MEQ/L Anion Gap 7 MEQ/L Blood Urea Nitrogen 31 MG/DL Creatinine 0.66 MG/DL Estimat Glomerular Filtration 123 ML/MIN Rate Random Glucose 110 MG/DL Lactic Acid Level 3.8 mmol/L Calcium Level 8.3 MG/DL Total Bilirubin 7.6 MG/DL Aspartate Amino Transf 46 U/L (AST/SGOT) Alanine Aminotransferase 29 U/L (ALT/SGPT) Alkaline Phosphatase 100 U/L Total Protein 7.0 GM/DL Albumin 2.2 GM/DL Lipase 225 U/L Blood Bank Comment Crossmatch Leukocyte-Reduced Red Blood Cells Test 01/09/17 01/09/17 01/09/17 01:25 03:00 03:39 Lactic Acid Level 2.5 mmol/L Blood Type B POSITIVE Antibody Screen NEGATIVE Urine Color YELLOW Urine Turbidity CLEAR Urine pH 6.0 Urine Specific [place] 1.018 Urine Protein NEG mg/dL Urine Glucose (UA) NEG mg/dL Urine Ketones TRACE mg/dL Urine Occult Blood SMALL Urine Nitrite NEG Urine Bilirubin NEG Urine Urobilinogen LESS THAN 2.0 MG/DL Urine Leukocyte Esterase NEG Urine RBC 2 /hpf Urine WBC 2 /hpf Microscopic Urinalysis Comment CULT NOT INDICATED Nasal Screen MRSA (PCR) NEGATIVE Physical Examination HEENT: Normocephalic; atraumatic; no jaundice. CHEST: CTA CARDIAC: RRR. ABDOMEN: Soft, nondistended, nontender; hepatosplenomegaly; bowel sounds are present in all four quadrants. EXTREMITIES: No clubbing, cyanosis, or edema. SKIN: Normal; no rash; no jaundice. MONOTYPE KEYBOARD OPERATOR: No focal deficits; alert and oriented times three. (Natalia Anderson) Assessment and Plan Plan ASSESSMENT: - Upper GI bleed with hematemesis in patient with known liver cirrhosis. Pt had episode of hematemesis with dark blood/clots yesterday. He does not drink, no NSAIDs, not on any medications for his stomach. S/P EGD on (11/30/16) ------> severe esophagitis, Alicia-dyson tear at the GE junction, short barretts, gastropathy. No biopsy was done because of elevated INR. Prior to that, he had an EGD/Colonoscopy (04/10/16) and this revealed irregular z line was not biopsied because of patient's anticoagulation, no varices seen, in the stomach severe gastropathy and gastritis, duodenum normal, in the colon small polyp fulgurated as above. - Anemia, acute blood loss. 8.7/24.3. - Coagulopathy. INR 1.9 yesterday. Will get stat INR today. - Liver cirrhosis. Told he had fatty liver 15 months ago and then liver cirrhosis back in March. He quit drinking at that time and was recently evaluated at [facility] last week for liver transplant. He had labs drawn and had a FU appointment today. T. Bili 7.6, AST 46, ALT 29, Alk Phosph 100. PLAN: - Plan for egd with possible band ligation today - Obtain consents - NPO - Protonix Gtt - Octreotide Gtt - Monitor HH - Transfuse as necessary - Stat INR - Supportive care - Further recommendations to follow based on results of above - Pt seen and examined by Dr. Bennett and myself and this note is written on her behalf (Natalia Anderson) Physician Comments seen, examined agree with above (Dai Bennett MD) Natalia Anderson Jan 09, 2017 10:31 Dai Bennett MD Jan 09, 2017 18:48
[2017-01-09 11:29] LABS: INTERNATIONAL NORMALIZED RATIO 1.6 RATIO; PROTHROMBIN TIME - PATIENT 17.8 SEC (9.8-11.6)
[2017-01-09 11:34] LABS: HEMATOCRIT 15.3 % (39.0-51.0)
[2017-01-09 12:27] LABS: MEAN CELL VOLUME 102.2 FL (80.0-100.0); MEAN CORPUSCULAR HEMOGLOBIN 36.4 PG (27.0-34.0); MEAN CORPUSCULAR HGB CONC 35.6 % (32.0-36.0); PLATELET COUNT 45 TH/MM3 (150-450); RED BLOOD COUNT 1.55 MIL/MM3 (4.50-5.90); RED CELL DISTRIBUTION WIDTH 14.7 % (11.6-17.2); WHITE BLOOD COUNT 1.7 TH/MM3 (4.0-11.0)
[2017-01-09 12:28] LABS: REVIEW FLAG FINAL
[2017-01-09 12:34] LABS: HEMATOCRIT 15.8 % (39.0-51.0)
[2017-01-09] MEDS ORDERED: PROPOFOL 200 MG/20 ML AMP IV ONE (14:29)
[2017-01-09 15:18] LABS: INTERNATIONAL NORMALIZED RATIO 1.5 RATIO; PROTHROMBIN TIME - PATIENT 17.4 SEC (9.8-11.6)
[2017-01-09 15:20] LABS: MEAN CELL VOLUME 98.6 FL (80.0-100.0); MEAN CORPUSCULAR HEMOGLOBIN 34.2 PG (27.0-34.0); MEAN CORPUSCULAR HGB CONC 34.7 % (32.0-36.0); PLATELET COUNT 52 TH/MM3 (150-450); RED BLOOD COUNT 1.97 MIL/MM3 (4.50-5.90); RED CELL DISTRIBUTION WIDTH 18.6 % (11.6-17.2)
[2017-01-09 15:21] LABS: REVIEW FLAG FINAL
[2017-01-09 15:23] LABS: HEMATOCRIT 19.5 % (39.0-51.0)
[2017-01-09] MEDS ORDERED: MANNITOL INJ 50 ML ONE (17:48)
[2017-01-09 21:01] LABS: MEAN CORPUSCULAR HGB CONC 36.3 % (32.0-36.0)
[2017-01-09] MEDS: TEMAZEPAM 15 MG CAP PO PRN (21:26)
[2017-01-09 22:07] LABS: HEMATOCRIT 22.9 % (39.0-51.0)
[2017-01-09 22:09] LABS: REVIEW FLAG FINAL
[2017-01-10] VITALS (12 sets, daily range): BP systolic 122–134; BP diastolic 61–68; PULSE 70–86; RESP 17–20; TEMP 98–99; O2SAT 92–97
[2017-01-10] MEDS: SODIUM CHLOR 0.9% 1000 ML INJ 1,000 ML IV SCH ×2 (00:51→12:43)
[2017-01-10] MEDS: cefTRIAXone INJ 1,000 MG in SODIUM CHLORIDE 0.9% INJ 100 ML IV SCH (00:51)
[2017-01-10 03:47] LABS: AUTOMATED NEUTROPHIL # 1.4 TH/MM3 (1.8-7.7); BASOPHIL % 0.2 % (0.0-2.0); EOSINOPHIL # 0.1 TH/MM3 (0-0.4); EOSINOPHIL % 6.6 % (0.0-4.0); HEMATOCRIT 24.4 % (39.0-51.0); LYMPH % 16.7 % (9.0-44.0); LYMPHOCYTE # 0.3 TH/MM3 (1.0-4.8); MEAN CELL VOLUME 94.1 FL (80.0-100.0); MEAN CORPUSCULAR HEMOGLOBIN 34.1 PG (27.0-34.0); MONO % 11.6 % (0.0-8.0); NEUT % 64.9 % (16.0-70.0); PLATELET COUNT 49 TH/MM3 (150-450); RED BLOOD COUNT 2.59 MIL/MM3 (4.50-5.90); RED CELL DISTRIBUTION WIDTH 19.9 % (11.6-17.2); WHITE BLOOD COUNT 2.1 TH/MM3 (4.0-11.0)
[2017-01-10 03:57] LABS: ALT (GPT) 25 U/L (12-78); ANION GAP 8 MEQ/L (5-15); AST (GOT) 36 U/L (15-37); BICARBONATE 26.3 MEQ/L (21.0-32.0); BLOOD UREA NITROGEN 15 MG/DL (7-18); CHLORIDE 110 MEQ/L (98-107); GLOMERULAR FILTRATION RATE 142 ML/MIN (>89); MAGNESIUM 1.5 MG/DL (1.5-2.5); POTASSIUM 3.9 MEQ/L (3.5-5.1); SODIUM (NA) 144 MEQ/L (136-145)
[2017-01-10] MEDS: CHLORHEXIDINE GLUCONATE 2 % 1 PACK (2 CLOTHS) TOP SCH (04:00)
[2017-01-10 04:01] LABS: ALKALINE PHOSPHATASE 73 U/L (45-117); TOTAL BILIRUBIN ADULT 6.8 MG/DL (0.2-1.0)
[2017-01-10 04:45] LABS: HEMO FLAGS AUTO DIFF
[2017-01-10 04:48] LABS: ACANTHOCYTES OCC (NORMAL)
[2017-01-10 04:49] LABS: OVALOCYTES 1+ (NORMAL); PLATELET ESTIMATE SMEAR LOW (NORMAL); PLATELET MORPHOLOGY NORMAL (NORMAL); SCAN/DIFF AUTO DIFF CONFIRMED
[2017-01-10] MEDS: OCTREOTIDE INJ 500 MCG in SODIUM CHLORID 0.9% 500 ML INJ 499.5 ML IV SCH (08:28)
[2017-01-10] MEDS: PANTOPRAZOLE INJ 80 MG in SODIUM CHLORIDE 0.9% INJ 100 ML IV SCH (08:29)
[2017-01-10] MEDS: SODIUM CHLORIDE 0.9% FLUSH 5 ML FLUSH IV FLUSH SCH ×2 (08:29→20:35)
[2017-01-10] MEDS: PHYTONADIONE INJ 10 MG in SODIUM CHLORIDE 0.9% INJ 50 ML IV SCH (09:00)
[2017-01-10 11:49] LABS: HEMATOCRIT 23.3 % (39.0-51.0)
[2017-01-10 11:52] LABS: REVIEW FLAG FINAL
--- NOTE | 2017-01-10 14:20 | HHI.GIFU ---
Subjective Remarks Resting in bed. No n/v. No abdominal pain. No bleeding. Tolerating clear liquids. (Natalia Anderson) Objective Vitals I&O Vital Signs Date Time Temp Pulse Resp B/P Pulse Ox O2 Delivery O2 Flow Rate FiO2 01/10/17 12:00 73 01/10/17 12:00 98.1 73 17 126/62 94 01/10/17 10:00 74 01/10/17 08:00 70 01/10/17 08:00 98.6 70 17 130/68 93 01/10/17 07:00 Room Air 01/10/17 06:00 79 01/10/17 04:00 98.0 76 20 123/61 92 01/10/17 04:00 76 01/10/17 02:00 86 01/10/17 00:00 98.6 79 20 122/61 94 01/10/17 00:00 79 01/09/17 22:00 82 01/09/17 20:00 81 01/09/17 20:00 98.1 84 19 131/68 99 01/09/17 19:00 99 Room Air 01/09/17 18:00 85 01/09/17 16:00 98.6 80 15 113/59 97 01/09/17 16:00 80 01/09/17 14:30 98.6 88 17 121/68 93 01/09/17 14:15 98.5 86 13 109/57 94 I/O 01/09/17 01/09/17 01/09/17 01/10/17 01/10/17 01/10/17 07:00 15:00 23:00 07:00 15:00 23:00 Intake Total 2241 ml 1234 ml 1577 ml 1845 ml 1688 ml Output Total 300 ml 850 ml 1550 ml 1900 ml 1300 ml Balance 1941 ml 384 ml 27 ml -55 ml 388 ml Intake Oral 0 ml 400 ml 600 ml 1000 ml IV Total 609 ml 734 ml 1177 ml 1245 ml 688 ml Packed Cells 500 ml FFP 642 ml Platelets 240 ml Other 750 ml Output Urine Total 300 ml 850 ml 1550 ml 1900 ml 1300 ml Stool Total 0 ml # Voids 2 # Bowel Movements 0 0 0 0 Laboratory Laboratory Tests Test 01/09/17 01/09/17 01/10/17 01/10/17 14:48 20:58 03:26 11:20 White Blood Count 2.0 2.1 Red Blood Count 1.97 2.59 Hemoglobin 6.7 8.3 8.8 8.5 Hematocrit 19.5 22.9 24.4 23.3 Mean Corpuscular Volume 98.6 94.1 Mean Corpuscular Hemoglobin 34.2 34.1 Mean Corpuscular Hemoglobin 34.7 36.3 Concent Red Cell Distribution Width 18.6 19.9 Platelet Count 52 49 Mean Platelet Volume 7.9 7.8 Prothrombin Time 17.4 Prothromb Time International 1.5 Ratio Neutrophils (%) (Auto) 64.9 Lymphocytes (%) (Auto) 16.7 Monocytes (%) (Auto) 11.6 Eosinophils (%) (Auto) 6.6 Basophils (%) (Auto) 0.2 Neutrophils # (Auto) 1.4 Lymphocytes # (Auto) 0.3 Monocytes # (Auto) 0.2 Eosinophils # (Auto) 0.1 Basophils # (Auto) 0.0 CBC Comment AUTO DIFF Differential Comment AUTO DIFF CONFIRMED Platelet Estimate LOW Platelet Morphology Comment NORMAL Ovalocytes 1+ Acanthocytes OCC Sodium Level 144 Potassium Level 3.9 Chloride Level 110 Carbon Dioxide Level 26.3 Anion Gap 8 Blood Urea Nitrogen 15 Creatinine 0.58 Estimat Glomerular Filtration 142 Rate Random Glucose 65 Calcium Level 8.1 Phosphorus Level 2.2 Magnesium Level 1.5 Total Bilirubin 6.8 Aspartate Amino Transf 36 (AST/SGOT) Alanine Aminotransferase 25 (ALT/SGPT) Alkaline Phosphatase 73 Total Protein 6.0 Albumin 2.2 Physical Exam HEENT: Normocephalic; atraumatic; no jaundice. CHEST: CTA CARDIAC: RRR ABDOMEN: Soft, nondistended, nontender; hepatosplenomegaly; bowel sounds are present in all four quadrants. EXTREMITIES: No clubbing, cyanosis, or edema. SKIN: Normal; no rash; no jaundice. EMERGENCY TELECOMMUNICATIONS DISPATCHER: No focal deficits; alert and oriented times three. (Natalia Anderson) Assessment and Plan Plan ASSESSMENT: - Upper GI bleed with hematemesis in patient with known liver cirrhosis. Pt had episode of hematemesis with dark blood/clots yesterday. He does not drink, no NSAIDs, not on any medications for his stomach. S/P EGD (01/09/17)---> portal gastropathy, Russell's esophagus. Protonix Gtt. No further bleeding. No n/v /pain. HH is 8.5/23.3. - Anemia, acute blood loss. 8.5/23.3. - Coagulopathy. INR 1.5 yesterday. - Liver cirrhosis. Told he had fatty liver 15 months ago and then liver cirrhosis back in March. He quit drinking at that time and was recently evaluated at [facility] last week for liver transplant. He had labs drawn and had a FU appointment today. T. Bili 6.8, AST 36, ALT 25, Alk Phosph 73. PLAN: - Heart healthy diet - D/C protonix gtt - D/C Octreotide Gtt - Protonix 40mg po BID - Monitor HH - Transfuse as necessary - Supportive care - Further recommendations to follow based on results of above - Pt seen and examined by Dr. Bennett and myself and this note is written on her behalf (Natalia Anderson) Physician Comments seen, examined agree with above patient states [facility] insurance account representative Caitlin called him today and informed him he has proteins and blood in urine, from his understanding she suggested possible transfer to [place] for further eval we will call them in am we will consult hematology in am if no plans for transfer (Dai Bennett MD) Natalia Anderson Jan 10, 2017 14:20 Dai Bennett MD Jan 10, 2017 16:52
[2017-01-10] MEDS ORDERED: SODIUM CHLORIDE FLUSH PRN IVF (16:00)
--- NOTE | 2017-01-10 16:23 | PD.TRANSFR ---
Transfer Summary Admission Date Jan 08, 2017 at 23:27 Transfer Date: Jan 11, 2017 Admitting Diagnosis Upper GI Bleeding, Elevated INR. Diagnoses: (1) UGI bleed Diagnosis: Principal (2) Alcoholic cirrhosis Diagnosis: Secondary Significant Findings 61 yo male with PMH of EtOH abuse and cirrhosis who presents to [facility] ED following hematemesis. He states that he has been constipated for the last couple of days and that in the morning of 01/08/17 he had a couple of bowel movements that he stated was were dark but were not melena. He states he vomited about a half of a pint of dark blood with clots around 1:30 in the afternoon 01/08. He has continued to feel lightheaded which prompted emergency department evaluation. He denies abdominal pain though he states he does intermittently have some abdominal cramping that is chronic. He has been admitted in November for hematemesis and had an EGD on 11/30/[address] Marie that demonstrated a Alicia-Dyson tear at the GE junction, esophagitis, gastropathy. He followed up with Dr. Serra on an outpatient basis and had been referred to [facility] for liver transplant evaluation. He has followed up with this and states workup is ongoing. His blood pressure has been 100/55- 132/61. Hgb is 8.7 and prior hemoglobin was 8.8 on 12/02/16. INR is 1.9 and platelet count is 59. Denies fever. He was given Protonix bolus and octreotide in the emergency department. While in the emergency department he had a second episode of emesis. Patient states this was about a half a cup of blood. 01/10: Evaluated by GI service today. Diet ordered. Transfer Summary/Subjective Upper GI bleed. Presently being evaluated at [facility] for liver transplant. Stable hemodynamics, no more bleed. GI following. Objective Vital Signs Date Time Temp Pulse Resp B/P Pulse Ox O2 Delivery O2 Flow Rate FiO2 01/10/17 14:00 74 01/10/17 12:00 98.1 17 126/62 94 01/10/17 07:00 Room Air Intake and Output 01/09/17 01/09/17 01/10/17 08:00 16:00 00:00 Intake Total 2241 ml 1234 ml 1577 ml Output Total 300 ml 850 ml 1550 ml Balance 1941 ml 384 ml 27 ml Result Diagram: 01/10/17 1120 01/10/17 0326 Objective Remarks Temp 98.2 pulse 114 blood pressure 120/59 percent on room air GENERAL: Well-nourished, well-developed jaundiced patient, pleasant and talkative laying in ED gurney. SKIN: Warm and dry. HEAD: Atraumatic. Normocephalic. EYES: Pupils equal and round. + icterus. ENT: No nasal bleeding or discharge. Mucous membranes pink NECK: Trachea midline. No JVD. CARDIOVASCULAR: tachycardic, regular, no murmurs rubs or gallops appreciated.. RESPIRATORY: breathing comfortably on RA without accessory muscle use. On RA. GASTROINTESTINAL: Abdomen soft, non-tender, nondistended. .Bowel sounds present. MUSCULOSKELETAL: Extremities without clubbing, cyanosis, or edema. NEUROLOGICAL: Awake and alert. No obvious cranial nerve deficits. Motor grossly within normal limits. Normal speech. Oriented x3 A/P Assessment and Plan NEURO: H/o daily EtOH use Insomnia last drink March 2016 Restoril 15 mg po qhs prn sleep. Morphine 2 mg IV q2 hours prn abdominal pain. RESP: On RA CV: Monitor hemodynamics GI: Hepatic cirrhosis Bonnie Downing C, MELD 21 History of esophagitis Nothing by mouth. Protonix and octreotide drip Serial hgb as per below. Address thrombocytopenia and coagulopathy as per below. Viral hepatitis panel negative 04/11 GI consulted, ED physician discussed with Dr. Wadsworth. Outpatient workup per [place] for liver transplant Zofran prn nausea. FEN/RENAL: Lactic acidemia - secondary to hemorrhage. Will followup. Normal renal function. He is voiding. Monitor intake and output. Monitor electrolytes and replace as indicated per ICU electrolyte replacement protocol. ID: Monitor for evidence of infection. Rocephin 1 g IV daily for SBP prophylaxis. HEME: Acute blood loss overlying chronic anemia h/o Chronic leukopenia Coagulopathy secondary to cirrhosis Chronic thrombocytopenia secondary to cirrhosis Vitamin K 10 mg IV daily 3 doses. Confused to units FFP 4 INR 1.9. Transfuse 1 unit platelet pheresis. Serial hemoglobin every 6 hours with transfusion as indicated based on hemodynamics or hemoglobin less than 7 Type and hold 3 units PRBC. ENDO: Euglycemic PROPH: SCDs for DVT prophylaxis. Protonix drip as per above ACCESS: Has a 20/22 gauge twin cath in place. Will obtain an additional PIV site , discussed with ED RN. Level III H&P Gorge Schwab MD Jan 10, 2017 16:23
[2017-01-10] MEDS: PANTOPRAZOLE SOD 40 MG DELAYED RELEASE TAB PO SCH (20:34)
[2017-01-10] MEDS: TEMAZEPAM 15 MG CAP PO PRN (20:34)
[2017-01-10] MEDS: SODIUM CHLORIDE FLUSH BID IVF SCH (20:35)
[2017-01-10 20:41] LABS: AUTOMATED NEUTROPHIL # 1.3 TH/MM3 (1.8-7.7); BASOPHIL % 0.3 % (0.0-2.0); EOSINOPHIL # 0.1 TH/MM3 (0-0.4); EOSINOPHIL % 7.1 % (0.0-4.0); HEMATOCRIT 24.3 % (39.0-51.0); LYMPHOCYTE # 0.3 TH/MM3 (1.0-4.8); MEAN CELL VOLUME 94.2 FL (80.0-100.0); MEAN CORPUSCULAR HEMOGLOBIN 33.6 PG (27.0-34.0); MEAN CORPUSCULAR HGB CONC 35.6 % (32.0-36.0); MONO % 11.2 % (0.0-8.0); NEUT % 66.4 % (16.0-70.0); PLATELET COUNT 49 TH/MM3 (150-450); RED BLOOD COUNT 2.58 MIL/MM3 (4.50-5.90); RED CELL DISTRIBUTION WIDTH 19.6 % (11.6-17.2)
[2017-01-10 20:45] LABS: HEMO FLAGS AUTO DIFF
[2017-01-10 21:10] LABS: ACANTHOCYTES OCC (NORMAL); OVALOCYTES 1+ (NORMAL); PLATELET ESTIMATE SMEAR LOW (NORMAL); PLATELET MORPHOLOGY NORMAL (NORMAL); SCAN/DIFF AUTO DIFF CONFIRMED
[2017-01-11] VITALS: BP 118/63; PULSE 78; RESP 20; TEMP 98.7; O2SAT 92
[2017-01-11] MEDS: cefTRIAXone INJ 1,000 MG in SODIUM CHLORIDE 0.9% INJ 100 ML IV SCH (01:00)
[2017-01-11 02:00] VITALS: PULSE 72
[2017-01-11 04:00] VITALS: BP 121/62; PULSE 72; RESP 21; TEMP 98.6; O2SAT 93
[2017-01-11] MEDS: CHLORHEXIDINE GLUCONATE 2 % 1 PACK (2 CLOTHS) TOP SCH (04:00)
[2017-01-11 05:38] LABS: HEMATOCRIT 23.5 % (39.0-51.0)
[2017-01-11 05:40] LABS: REVIEW FLAG FINAL
[2017-01-11 06:00] VITALS: PULSE 66
[2017-01-11 08:00] VITALS: BP 130/68; PULSE 76; RESP 23; TEMP 97.8; O2SAT 98
[2017-01-11] MEDS: SODIUM CHLORIDE FLUSH BID IVF SCH (08:24)
[2017-01-11] MEDS: SODIUM CHLORIDE 0.9% FLUSH 5 ML FLUSH IV FLUSH SCH (08:24)
[2017-01-11] MEDS: PANTOPRAZOLE SOD 40 MG DELAYED RELEASE TAB PO SCH (08:24)
--- NOTE | 2017-01-11 08:42 | HHI.GIFU ---
Subjective Remarks Resting in bed. No n/v. No abdominal pain. No bleeding. Pt reports that his mentioned something about [facility] mentioning transfer to their facility. Called and spoke to Caitlin Styles at [facility] and she states that she told to let us know that he has been seen at [facility] and that he can follow up at discharge or if he was going to require a prolonged hospitalization and if transfer was needed, that he was already established at [facility]. D/W Caitlin patient's hospitalization, findings, clinical status. Agree that he can be discharged home and schedule appointment for fu at discharge. ( Natalia Anderson) Objective Vitals I&O Vital Signs Date Time Temp Pulse Resp B/P Pulse Ox O2 Delivery O2 Flow Rate FiO2 01/11/17 08:00 76 01/11/17 08:00 97.8 76 23 130/68 98 01/11/17 07:00 Room Air 01/11/17 06:00 66 01/11/17 04:00 72 01/11/17 04:00 98.6 72 21 121/62 93 01/11/17 02:00 72 01/11/17 00:00 78 01/11/17 00:00 98.7 78 20 118/63 92 01/10/17 22:00 82 01/10/17 20:00 98.8 82 20 134/65 97 01/10/17 20:00 82 01/10/17 19:00 Room Air 01/10/17 18:00 75 01/10/17 16:00 80 01/10/17 16:00 99.0 80 17 124/62 96 01/10/17 14:00 74 01/10/17 12:00 73 01/10/17 12:00 98.1 73 17 126/62 94 01/10/17 10:00 74 I/O 01/10/17 01/10/17 01/10/17 01/11/17 01/11/17 01/11/17 06:59 14:59 22:59 06:59 14:59 22:59 Intake Total 1845 ml 1688 ml 600 ml 400 ml Output Total 1900 ml 1300 ml 700 ml 1000 ml Balance -55 ml 388 ml -100 ml -600 ml Intake Oral 600 ml 1000 ml 600 ml 400 ml IV Total 1245 ml 688 ml Output Urine Total 1900 ml 1300 ml 700 ml 1000 ml # Bowel Movements 0 0 0 Laboratory Laboratory Tests Test 01/10/17 01/10/17 01/11/17 11:20 19:58 04:03 Hemoglobin 8.5 8.7 8.5 Hematocrit 23.3 24.3 23.5 White Blood Count 2.0 Red Blood Count 2.58 Mean Corpuscular Volume 94.2 Mean Corpuscular Hemoglobin 33.6 Mean Corpuscular Hemoglobin 35.6 Concent Red Cell Distribution Width 19.6 Platelet Count 49 Mean Platelet Volume 7.7 Neutrophils (%) (Auto) 66.4 Lymphocytes (%) (Auto) 15.0 Monocytes (%) (Auto) 11.2 Eosinophils (%) (Auto) 7.1 Basophils (%) (Auto) 0.3 Neutrophils # (Auto) 1.3 Lymphocytes # (Auto) 0.3 Monocytes # (Auto) 0.2 Eosinophils # (Auto) 0.1 Basophils # (Auto) 0.0 CBC Comment AUTO DIFF Differential Comment AUTO DIFF CONFIRMED Platelet Estimate LOW Platelet Morphology Comment NORMAL Ovalocytes 1+ Acanthocytes OCC Physical Exam HEENT: Normocephalic; atraumatic; no jaundice. CHEST: CTA CARDIAC: RRR ABDOMEN: Soft, nondistended, nontender; hepatosplenomegaly; bowel sounds are present in all four quadrants. EXTREMITIES: No clubbing, cyanosis, or edema. SKIN: Normal; no rash; no jaundice. HEAD OF ETHICS AND COMPLIANCE: No focal deficits; alert and oriented times three. (Natalia Anderson) Assessment and Plan Plan ASSESSMENT: - Upper GI bleed with hematemesis in patient with known liver cirrhosis. Pt had episode of hematemesis with dark blood/clots yesterday. He does not drink, no NSAIDs, not on any medications for his stomach. S/P EGD (01/09/17)---> portal gastropathy, Russell's esophagus. Protonix. No further bleeding. No n/v/ pain. Tolerating diet. HH is 8.5/23.3. - Anemia, acute blood loss. 8.5/23.3. - Coagulopathy. INR 1.5 yesterday. - Liver cirrhosis. Told he had fatty liver 15 months ago and then liver cirrhosis back in March. He quit drinking at that time and was recently evaluated at [facility] last week for liver transplant. Pt reports that his mentioned something about [facility] mentioning transfer to their facility. Called and spoke to Caitlin Patelnford at [facility] and she states that she told to let us know that he has been seen at [facility] and that he can follow up at discharge or if he was going to require a prolonged hospitalization and if transfer was needed, that he was already established at [facility]. D/W Caitlin patient's hospitalization, findings, clinical status. Agree that he can be discharged home and schedule appointment for fu at discharge. PLAN: - Okay to d/c home from GI standpoint - Heart healthy diet - Protonix 40mg po BID - Monitor HH - Call [facility] to schedule FU appointment at discharge- Spoke with Caitlin at [facility] - Pt seen and examined by Dr. Bennett and myself and this note is written on her behalf (Natalia Anderson) Natalia Anderson Jan 11, 2017 08:42 Dai Bennett MD Jan 11, 2017 18:05
[2017-01-11] MEDS ORDERED: PROT40TA PO (09:53)
[2017-01-11 10:00] VITALS: PULSE 82
--- NOTE | 2017-01-11 20:40 | HHI.DS ---
Discharge Summary Admission Date Jan 08, 2017 at 23:27 Discharge Date: Jan 11, 2017 Admitting Diagnosis Upper GI Bleeding, Elevated INR. (1) UGI bleed ICD Code: K92.2 Diagnosis: Principal (2) Alcoholic cirrhosis ICD Code: K70.30 Diagnosis: Secondary Procedures None. Brief History - From Admission 61 yo male with PMH of EtOH abuse and cirrhosis who [place] [facility] [place]em[place]. He states that he has been constipated for the last couple of days and that in the morning of 01/08/17 he had a couple of bowel movements that he stated was were dark but were not melena. He states he vomited about a half of a pint of dark blood with clots around 1:30 in the afternoon 01/08. He has continued to feel lightheaded which prompted emergency department evaluation. He denies abdominal pain though he states he does intermittently have some abdominal cramping that is chronic. He has been admitted in November for hematemesis and had an EGD on 11/30/[address] Marie that demonstrated a Alicia-Dyson tear at the GE junction, esophagitis, gastropathy. He followed up with Dr. Serra on an outpatient basis and had been referred to [facility] for liver transplant evaluation. He has followed up with this and states workup is ongoing. His blood pressure has been 100/55- 132/61. Hgb is 8.7 and prior hemoglobin was 8.8 on 12/02/16. INR is 1.9 and platelet count is 59. Denies fever. He was given Protonix bolus and octreotide in the emergency department. While in the emergency department he had a second episode of emesis. Patient states this was about a half a cup of blood. CBC/BMP: 01/11/17 0403 01/10/17 0326 Significant Findings Laboratory Tests Test 01/08/17 01/09/17 01/09/17 01/09/17 21:15 01:25 03:00 10:46 Red Blood Count 2.37 MIL/MM3 (4.50-5.90) Hemoglobin 8.7 GM/DL 5.4 GM/DL (13.0-17.0) (13.0-17.0) Hematocrit 24.3 % 15.3 % (39.0-51.0) (39.0-51.0) Mean Corpuscular Volume 102.3 FL (80.0-100.0) Mean Corpuscular Hemoglobin 36.7 PG (27.0-34.0) Platelet Count 59 TH/MM3 (150-450) Neutrophils (%) (Auto) 73.8 % (16.0-70.0) Monocytes (%) (Auto) 9.9 % (0.0-8.0) Lymphocytes # (Auto) 0.7 TH/MM3 (1.0-4.8) Platelet Estimate LOW (NORMAL) Prothrombin Time 22.1 SEC 17.8 SEC (9.8-11.6) (9.8-11.6) Activated Partial 39.3 SEC Thromboplast Time (24.3-30.1) Blood Urea Nitrogen 31 MG/DL (7-18) Random Glucose 110 MG/DL (74-106) Lactic Acid Level 3.8 mmol/L 2.5 mmol/L (0.4-2.0) (0.4-2.0) Calcium Level 8.3 MG/DL (8.5-10.1) Total Bilirubin 7.6 MG/DL (0.2-1.0) Aspartate Amino Transf 46 U/L (15-37) (AST/SGOT) Albumin 2.2 GM/DL (3.4-5.0) Urine Ketones TRACE mg/dL (NEG) Urine Occult Blood SMALL (NEG) Test 01/09/17 01/09/17 01/09/17 01/10/17 12:11 14:48 20:58 03:26 White Blood Count 1.7 TH/MM3 2.0 TH/MM3 2.1 TH/MM3 (4.0-11.0) (4.0-11.0) (4.0-11.0) Red Blood Count 1.55 MIL/MM3 1.97 MIL/MM3 2.59 MIL/MM3 (4.50-5.90) (4.50-5.90) (4.50-5.90) Hemoglobin 5.6 GM/DL 6.7 GM/DL 8.3 GM/DL 8.8 GM/DL (13.0-17.0) (13.0-17.0) (13.0-17.0) (13.0-17.0) Hematocrit 15.8 % 19.5 % 22.9 % 24.4 % (39.0-51.0) (39.0-51.0) (39.0-51.0) (39.0-51.0) Mean Corpuscular Volume 102.2 FL (80.0-100.0) Mean Corpuscular Hemoglobin 36.4 PG 34.2 PG 34.1 PG (27.0-34.0) (27.0-34.0) (27.0-34.0) Platelet Count 45 TH/MM3 52 TH/MM3 49 TH/MM3 (150-450) (150-450) (150-450) Red Cell Distribution Width 18.6 % 19.9 % (11.6-17.2) (11.6-17.2) Prothrombin Time 17.4 SEC (9.8-11.6) Mean Corpuscular Hemoglobin 36.3 % Concent (32.0-36.0) Monocytes (%) (Auto) 11.6 % (0.0-8.0) Eosinophils (%) (Auto) 6.6 % (0.0-4.0) Neutrophils # (Auto) 1.4 TH/MM3 (1.8-7.7) Lymphocytes # (Auto) 0.3 TH/MM3 (1.0-4.8) Platelet Estimate LOW (NORMAL) Ovalocytes 1+ (NORMAL) Chloride Level 110 MEQ/L (98-107) Creatinine 0.58 MG/DL (0.60-1.30) Random Glucose 65 MG/DL (74-106) Calcium Level 8.1 MG/DL (8.5-10.1) Phosphorus Level 2.2 MG/DL (2.5-4.9) Total Bilirubin 6.8 MG/DL (0.2-1.0) Total Protein 6.0 GM/DL (6.4-8.2) Albumin 2.2 GM/DL (3.4-5.0) Test 01/10/17 01/10/17 01/11/17 11:20 19:58 04:03 Hemoglobin 8.5 GM/DL 8.7 GM/DL 8.5 GM/DL (13.0-17.0) (13.0-17.0) (13.0-17.0) Hematocrit 23.3 % 24.3 % 23.5 % (39.0-51.0) (39.0-51.0) (39.0-51.0) White Blood Count 2.0 TH/MM3 (4.0-11.0) Red Blood Count 2.58 MIL/MM3 (4.50-5.90) Red Cell Distribution Width 19.6 % (11.6-17.2) Platelet Count 49 TH/MM3 (150-450) Monocytes (%) (Auto) 11.2 % (0.0-8.0) Eosinophils (%) (Auto) 7.1 % (0.0-4.0) Neutrophils # (Auto) 1.3 TH/MM3 (1.8-7.7) Lymphocytes # (Auto) 0.3 TH/MM3 (1.0-4.8) Platelet Estimate LOW (NORMAL) Ovalocytes 1+ (NORMAL) Transfer Summary Upper GI bleed. Presently being evaluated at [facility] for liver transplant. Stable hemodynamics, no more bleed. GI following. Pt update on day of discharge Mr. Ndiaye is doing well. No acute concerns. Denies any fever, chills. Hospital Course 61 yo male with PMH of EtOH abuse and cirrhosis who [place] [facility] [place] [place] hematemesis on 01/08/2017. He was given Protonix bolus and octreotide in the emergency department. He has been admitted in November for hematemesis and had an EGD on 11/30/[address] Marie that demonstrated a Alicia -Dyson tear at the GE junction, esophagitis, gastropathy. He followed up with Dr. Serra on an outpatient basis and had been referred to [facility] for liver transplant evaluation. He was given ceftriaxone for SBP prophylaxis. GI evaluated patient and recommended to continue Protonix 40mg BID and follow up with [facility]. All questions answered. Patient was subsequently discharged home. Pt Condition on Discharge: Good Discharge Disposition: Discharge Home Discharge Time: <= 30 minutes Discharge Instructions DIET: Follow Instructions for: Heart Healthy Diet Activities you can perform: Regular-No Restrictions Follow up Referrals: Gastroenterology - 2 Weeks @ [facility] New Medications: Pantoprazole (Protonix) 40 Mg Tab 40 MG PO BID Ulcer Prevention #60 Ref 0 TAB Debbie Newman DO Jan 11, 2017 20:40
== END 2017-01-11 14:42 | disposition hospice, inpatient (51) | DRG 378 ==
LOC: NEPC 20:33 → NEDA 23:27 → N03B 01-09 03:09
PROVIDERS: ADMIT Hospitalist; ATTEND Hospitalist
PROC: 30253K1 (ICD-10-PCS; principal; 2017-01-08)
PROC: 30253N1 (ICD-10-PCS; 2017-01-08)
PROC: 30253R1 (ICD-10-PCS; 2017-01-08)
DX: K92.0 Hematemesis (principal); D62 Acute posthemorrhagic anemia; D68.4 Acquired coagulation factor deficiency; E87.2 Acidosis; D69.59 Other secondary thrombocytopenia; K70.30 Alcoholic cirrhosis of liver without ascites; K22.70 Barrett's esophagus without dysplasia; F10.20 Alcohol dependence, uncomplicated; D53.9 Nutritional anemia, unspecified; K20.9 Esophagitis, unspecified; K31.89 Other diseases of stomach and duodenum; R31.9 Hematuria, unspecified; G47.00 Insomnia, unspecified; D72.819 Decreased white blood cell count, unspecified
CPT/HCPCS: 36430; 80053; 81001; 83605; 83690; 83735; 84100; 85014; 85018; 85025; 85027; 85610; 85730; 86850; 86900; 86901; 86920; 86927; 87641; 93005; 96361; 96374; 96375; C9113; J0696; J2150; J2354; J2405; J3430; J7030; J7040; P9016; P9017; P9035

== ENCOUNTER 2017-01-28 17:37 | Inpatient (IN) | payer BC ==
[~2017-01-28] VITALS: Ht 172.7 cm; Wt 67.5 kg
[~2017-01-28 17:37] MED LIST changes: -PANT40TA3 PO; -POTA20TA5 PO; +PROT40TA PO
[2017-01-28 17:40] VITALS: BP 167/79; PULSE 125; RESP 16; TEMP 98.2; O2SAT 93
[2017-01-28] MEDS ORDERED: SODIUM CHLOR 0.9% 1000 ML INJ 1,000 ML IV SCH (18:20)
[2017-01-28 18:30] VITALS: BP 150/74; PULSE 113; RESP 18; O2SAT 92; O2SAT 94
[2017-01-28] MEDS ORDERED: PANTOPRAZOLE SODIUM 40 MG VIAL IVP ONE (18:30)
[2017-01-28] MEDS ORDERED: SODIUM CHLORIDE 0.9% FLUSH 5 ML FLUSH IVF PRN (18:30)
[2017-01-28 18:53] LABS: BASOPHIL % 0.5 % (0.0-2.0); HEMATOCRIT 27.7 % (39.0-51.0); LYMPH % 9.1 % (9.0-44.0); LYMPHOCYTE # 0.2 TH/MM3 (1.0-4.8); MEAN CELL VOLUME 102.7 FL (80.0-100.0); MEAN CORPUSCULAR HEMOGLOBIN 35.6 PG (27.0-34.0); MEAN CORPUSCULAR HGB CONC 34.7 % (32.0-36.0); MONO % 8.4 % (0.0-8.0); PLATELET COUNT 54 TH/MM3 (150-450); RED CELL DISTRIBUTION WIDTH 19.8 % (11.6-17.2); WHITE BLOOD COUNT 2.5 TH/MM3 (4.0-11.0)
--- NOTE | 2017-01-28 18:58 | PD ---
HPI Chief Complaint: GI Complaint Time Seen by Provider: 17:57 Travel History International Travel<30 days: No Contact w/Intl Traveler<30days: No Traveled to known affect area: No History of Present Illness HPI This 61-year-old man who presents to the emergency department complaining of vomiting blood. He vomited dark blood. He is a history of cirrhosis related to alcohol use. She is not drank in many months. He had a recent endoscopy that showed gastritis, Alicia-Dyson tear, and esophagitis. Is not noticed any melena. He takes a PPI twice daily. He otherwise has been feeling in his usual state of health. History Past Medical History Narrative Medical Cirrhosis Tetanus Vaccination: < 5 Years Social History Alcohol Use: No Tobacco Use: No Allergies-Medications (Allergen,Severity, Reaction): Coded Allergies: No Known Allergies (Unverified , 01/08/17) Reported Meds & Prescriptions Reported Meds & Active Scripts Active Protonix (Pantoprazole Sodium) 40 Mg Tab 40 Mg PO BID Review of Systems Except as stated in HPI: all other systems reviewed are Neg Physical Exam Narrative GENERAL: 61-year-old man, generally well-appearing, no acute distress. SKIN: Warm and dry. Some generalized pallor. HEAD: Atraumatic. Normocephalic. EYES: Pupils equal and round. No scleral icterus. No injection or drainage. ENT: No nasal bleeding or discharge. Mucous membranes pink and moist. NECK: Trachea midline. No JVD. CARDIOVASCULAR: Heart rate rapid and irregular. No appreciable murmurs. RESPIRATORY: No accessory muscle use. Clear to auscultation. Breath sounds equal bilaterally. GASTROINTESTINAL: Abdomen soft but mildly distended. Is no grimace with deep palpation. RECTAL: Light brown stool in the rectal vault. Guaiac positive. MUSCULOSKELETAL: No obvious deformities. No edema. Data Data Last Documented VS Vital Signs Date Time Temp Pulse Resp B/P Pulse Ox O2 Delivery O2 Flow Rate FiO2 01/28/17 18:30 113 18 150/74 94 01/28/17 17:40 98.2 Orders Complete Blood Count With Diff (01/28/17 18:20) Comprehensive Metabolic Panel (01/28/17 18:20) Prothrombin Time / Inr (Pt) (01/28/17 18:20) Act Partial Throm Time (Ptt) (01/28/17 18:20) Type And Screen (01/28/17 18:20) Ecg Monitoring (01/28/17 18:20) Iv Access Insert/Monitor (01/28/17 18:20) Oximetry (01/28/17 18:20) Pantoprazole Inj (Protonix Inj) (01/28/17 18:30) Sodium Chlor 0.9% 1000 Ml Inj (Ns 1000 M (01/28/17 18:20) Sodium Chloride 0.9% Flush (Ns Flush) (01/28/17 18:30) Labs Laboratory Tests Test 01/28/17 18:24 Prothrombin Time 19.0 SEC Prothromb Time International 1.7 RATIO Ratio Activated Partial 35.1 SEC Thromboplast Time Blood Type B POSITIVE MDM Medical Decision Making Medical Screen Exam Complete: Yes Emergency Medical Condition: Yes Differential Diagnosis Gastritis, esophagitis, variceal bleeding, anemia, cirrhosis, other Narrative Course Patient with cirrhosis and evidence of GI bleed. Looks stable. We'll need admission for observation and serial cardiac enzymes. Patient signed out to the oncoming provider at 7 PM. Stuart Peters MD Jan 28, 2017 18:58
[2017-01-28 19:03] LABS: APTT (PATIENT) 35.1 SEC (24.3-30.1); INTERNATIONAL NORMALIZED RATIO 1.7 RATIO
[2017-01-28 19:16] LABS: ANION GAP 9 MEQ/L (5-15); AST (GOT) 72 U/L (15-37); BICARBONATE 30.5 MEQ/L (21.0-32.0); BLOOD UREA NITROGEN 9 MG/DL (7-18); CHLORIDE 99 MEQ/L (98-107); GLOMERULAR FILTRATION RATE 119 ML/MIN (>89); SODIUM (NA) 138 MEQ/L (136-145)
[2017-01-28 19:19] LABS: ALKALINE PHOSPHATASE 113 U/L (45-117); ALT (GPT) 38 U/L (12-78); TOTAL BILIRUBIN ADULT 10.8 MG/DL (0.2-1.0)
[2017-01-28 19:39] LABS: HEMO FLAGS AUTO DIFF
[2017-01-28 19:40] LABS: SCAN/DIFF AUTO DIFF CONFIRMED
[2017-01-28 20:00] VITALS: BP 149/74; PULSE 109; RESP 16; O2SAT 97
[2017-01-28] MEDS ORDERED: ACETAMINOPHEN 325 MG TAB PO PRN (20:30)
[2017-01-28] MEDS ORDERED: BISACODYL 10 MG SUPP PR PRN (20:30)
[2017-01-28] MEDS ORDERED: MORPHINE SULFATE 4 MG/ML INJ IV PRN (20:30)
[2017-01-28] MEDS ORDERED: SODIUM CHLORIDE 0.9% FLUSH 5 ML FLUSH FLUSH PRN (20:30)
[2017-01-28] MEDS ORDERED: ONDANSETRON HCL 4 MG/2 ML VIAL IVP PRN (20:30)
--- NOTE | 2017-01-28 20:35 | HHI.HP ---
[facility] Juan Manuel Parisi MD Admission Diagnosis gi bleed Diagnoses: (1) GI bleed Diagnosis: Principal (2) Cirrhosis Diagnosis: Principal (3) Thrombocytopenia Diagnosis: Principal (4) Coagulopathy Diagnosis: Principal Travel History International Travel<30 Days: No Contact w/Intl Traveler <30 Da: No Traveled to Known Affected Are: No History of Present Illness This is a 61-year-old male with a PMH of Alcohol Abuse, Cirrhosis, Chronic Thrombocytopenia and h/o GI Bleed who presented to the ER w/ hematemesis x1 day. Denies abdominal pain. Recent admit 01/08-01/11/17 for same, s/p EGD by Dr. Marie, found to have Alicia Dyson tear and referred to [facility] for Liver Transplant. D/c'd on Protonix 40mg bid which he states he's been compliant with. On arrival, BP 167/79, HR 125, O2 sat 93% on RA, Afebrile. Hgb 9.6, previously 8.5 on 01/11/17. Platelets 54, previously 49 on 01/11/17. INR 1.7. Started on Protonix/Octreotide gtt in ER. Dr. Yan consulted by ER physician, will evaluate in am. Review of Systems Except as stated in HPI: all other systems reviewed are Neg ROS: 14 point review of systems otherwise negative. Past Family Social History Past Medical History PMH: Alcohol Abuse, Cirrhosis, Chronic Thrombocytopenia and h/o GI Bleed Past Surgical History PAST SURGICAL HISTORY: Right Elbow Surgery, Right Chest Tube, Paracentesis Allergies: Coded Allergies: No Known Allergies (Unverified , 01/08/17) Family History PAST FAMILY HISTORY: Reviewed. No h/o DM or CAD Social History PAST SOCIAL HISTORY: History of alcohol abuse, quit 5 months ago. Negative for tobacco or drugs. Physical Exam Vital Signs Vital Signs Date Time Temp Pulse Resp B/P Pulse Ox O2 Delivery O2 Flow Rate FiO2 01/28/17 20:00 109 16 149/74 97 Nasal Cannula 2 01/28/17 18:30 113 18 150/74 94 3/4/17 18:30 92 01/28/17 17:40 98.2 125 16 167/79 93 Physical Exam PE: GENERAL: Middle-aged white male in no acute distress. HEENT: PERRLA, EOMI. No scleral icterus or conjunctival pallor. No lid lag or facial droop. CARDIOVASCULAR: Regular rate and rhythm. No obvious murmurs to auscultation. No chest tenderness to palpation. RESPIRATORY: No obvious rhonchi or wheezing. Clear to auscultation. Breath sounds equal bilaterally. GASTROINTESTINAL: Abdomen soft, non-tender, nondistended. BS normal. MUSCULOSKELETAL: Extremities without clubbing, cyanosis, or edema. No obvious deformities. NEUROLOGICAL: Awake, alert and oriented x4. No focal neurologic deficits. Moving both upper and lower extremities spontaneously. Laboratory Laboratory Tests Test 01/28/17 18:24 White Blood Count 2.5 Red Blood Count 2.70 Hemoglobin 9.6 Hematocrit 27.7 Mean Corpuscular Volume 102.7 Mean Corpuscular Hemoglobin 35.6 Mean Corpuscular Hemoglobin 34.7 Concent Red Cell Distribution Width 19.8 Platelet Count 54 Mean Platelet Volume 8.4 Neutrophils (%) (Auto) 81.0 Lymphocytes (%) (Auto) 9.1 Monocytes (%) (Auto) 8.4 Eosinophils (%) (Auto) 1.0 Basophils (%) (Auto) 0.5 Neutrophils # (Auto) 2.0 Lymphocytes # (Auto) 0.2 Monocytes # (Auto) 0.2 Eosinophils # (Auto) 0.0 Basophils # (Auto) 0.0 CBC Comment AUTO DIFF Differential Comment AUTO DIFF CONFIRMED Prothrombin Time 19.0 Prothromb Time International 1.7 Ratio Activated Partial 35.1 Thromboplast Time Sodium Level 138 Potassium Level 4.0 Chloride Level 99 Carbon Dioxide Level 30.5 Anion Gap 9 Blood Urea Nitrogen 9 Creatinine 0.68 Estimat Glomerular Filtration 119 Rate Random Glucose 126 Calcium Level 8.2 Total Bilirubin 10.8 Aspartate Amino Transf 72 (AST/SGOT) Alanine Aminotransferase 38 (ALT/SGPT) Alkaline Phosphatase 113 Total Protein 7.5 Albumin 2.5 Blood Type B POSITIVE Antibody Screen NEGATIVE Result Diagram: 01/28/17182301/28/171823 Assessment and Plan Problem List: (1) GI bleed ICD Code: K92.2 Status: Acute (2) Cirrhosis ICD Code: K74.60 Status: Acute (3) Thrombocytopenia ICD Code: D69.6 Status: Acute (4) Coagulopathy ICD Code: D68.9 Status: Acute Assessment and Plan A/P: 1. GI Bleed: Cirrhosis/Coagulopathy w/ h/o GI Bleed, recent admit 01/08- for same, s/p EGD w/ Dr. Marie found to have Alicia Dyson tear, compliant w/ Protonix. Vitals stable. Hgb 9.6, previously 8.5 on 01/11/17. Will monitor, Type & Screen, transfuse as needed. Started on Octreotide/ Protonix gtt in ER. Dr. Yan consulted, will eval in am. No further hematemesis while in ER. 2. Cirrhosis: Secondary to Alcohol Abuse, quit 5 months ago. Referred to [place] by Dr. Marie for Liver Transplant, currently pending eval. 3. Thrombocytopenia: Chronic. Secondary to cirrhosis/alcohol abuse. Platelets 54, previously 49 on 01/10/17. Will monitor. 4. Coagulopathy: INR 1.7. Secondary to Cirrhosis from Alcohol Abuse. Repeat INR in am. Type & Screen for possible transfusion, currently hemodynamically stable w/ no ongoing bleeding. 5. DVT Prophylaxis: Pharmacologic contraindication secondary to GI Bleed/ Cirrhosis/Coagulopathy 6. Social work for d/c planning as needed. 7. Case discussed w/ ER physician at length. Physician Certification 2 Midnight Certification Type: Admission for Inpatient Services Order for Inpatient Services The services are ordered in accordance with Medicare regulations or non- Medicare payer requirements, as applicable. In the case of services not specified as inpatient-only, they are appropriately provided as inpatient services in accordance with the 2-midnight benchmark. Estimated LOS (days): 2 days is the estimated time the patient will need to remain in the hospital, assuming treatment plan goals are met and no additional complications. Post-Hospital Plan: Not yet determined Nely Rutherford MD Jan 28, 2017 20:35
[2017-01-28] MEDS: OCTREOTIDE INJ 500 MCG in SODIUM CHLORID 0.9% 500 ML INJ 500 ML IV SCH (20:49)
[2017-01-28] MEDS: SODIUM CHLORIDE 0.9% FLUSH 5 ML FLUSH FLUSH SCH (20:49)
[2017-01-28] MEDS: PANTOPRAZOLE INJ 80 MG in SODIUM CHLORIDE 0.9% INJ 100 ML IV SCH (20:49)
--- NOTE | 2017-01-28 21:38 | PD ---
Physical Exam Narrative GENERAL: Well-nourished, well-developed patient. SKIN: Warm and dry. HEAD: Normocephalic and atraumatic. EYES: No injection or drainage. ENT: No nasal drainage noted. NECK: Supple, trachea midline. CARDIOVASCULAR: Regular rate and rhythm RESPIRATORY: No increased effort. No accessory muscle use. NEUROLOGICAL: Awake. Moves all extremities. Normal speech. Data Data Last Documented VS Vital Signs Date Time Temp Pulse Resp B/P Pulse Ox O2 Delivery O2 Flow Rate FiO2 01/28/17 20:00 109 16 149/74 97 Nasal Cannula 2 01/28/17 17:40 98.2 Orders Complete Blood Count With Diff (01/28/17 18:20) Comprehensive Metabolic Panel (01/28/17 18:20) Prothrombin Time / Inr (Pt) (01/28/17 18:20) Act Partial Throm Time (Ptt) (01/28/17 18:20) Type And Screen (01/28/17 18:20) Ecg Monitoring (01/28/17 18:20) Iv Access Insert/Monitor (01/28/17 18:20) Oximetry (01/28/17 18:20) Pantoprazole Inj (Protonix Inj) (01/28/17 18:30) Sodium Chlor 0.9% 1000 Ml Inj (Ns 1000 M (01/28/17 18:20) Sodium Chloride 0.9% Flush (Ns Flush) (01/28/17 18:30) Octreotide Inj (Sandostatin Inj) (01/28/17 20:15) Pantoprazole Inj (Protonix Inj) (01/28/17 20:15) Consult Gastroenterology (01/28/17 ) Admit Order (Ed Use Only) (01/28/17 20:25) Labs Laboratory Tests Test 01/28/17 18:24 White Blood Count 2.5 TH/MM3 Red Blood Count 2.70 MIL/MM3 Hemoglobin 9.6 GM/DL Hematocrit 27.7 % Mean Corpuscular Volume 102.7 FL Mean Corpuscular Hemoglobin 35.6 PG Mean Corpuscular Hemoglobin 34.7 % Concent Red Cell Distribution Width 19.8 % Platelet Count 54 TH/MM3 Mean Platelet Volume 8.4 FL Neutrophils (%) (Auto) 81.0 % Lymphocytes (%) (Auto) 9.1 % Monocytes (%) (Auto) 8.4 % Eosinophils (%) (Auto) 1.0 % Basophils (%) (Auto) 0.5 % Neutrophils # (Auto) 2.0 TH/MM3 Lymphocytes # (Auto) 0.2 TH/MM3 Monocytes # (Auto) 0.2 TH/MM3 Eosinophils # (Auto) 0.0 TH/MM3 Basophils # (Auto) 0.0 TH/MM3 CBC Comment AUTO DIFF Differential Comment AUTO DIFF CONFIRMED Prothrombin Time 19.0 SEC Prothromb Time International 1.7 RATIO Ratio Activated Partial 35.1 SEC Thromboplast Time Sodium Level 138 MEQ/L Potassium Level 4.0 MEQ/L Chloride Level 99 MEQ/L Carbon Dioxide Level 30.5 MEQ/L Anion Gap 9 MEQ/L Blood Urea Nitrogen 9 MG/DL Creatinine 0.68 MG/DL Estimat Glomerular Filtration 119 ML/MIN Rate Random Glucose 126 MG/DL Calcium Level 8.2 MG/DL Total Bilirubin 10.8 MG/DL Aspartate Amino Transf 72 U/L (AST/SGOT) Alanine Aminotransferase 38 U/L (ALT/SGPT) Alkaline Phosphatase 113 U/L Total Protein 7.5 GM/DL Albumin 2.5 GM/DL Blood Type B POSITIVE Antibody Screen NEGATIVE MDM Supervised Visit with ALF: No Interpretation(s) CBC & BMP Diagram 01/28/17 18:24 Narrative Course Signed over to me to follow blood work and admit to the hospital for further care Labs are stable, no vomiting here. Patient agrees to admission Physician Communication Physician Communication Dr. Yan will follow, states keep nothing by mouth, octreotide and Protonix drips dr selby agrees to admit Diagnosis Primary Impression: GIB (gastrointestinal bleeding) Qualified Code: K92.2 - Gastrointestinal hemorrhage, unspecified gastrointestinal hemorrhage type Additional Impression: Pancytopenia Admitting Information Admitting Physician Requests: Admit Vanessa Mccrary MD Jan 28, 2017 21:38
[2017-01-28 22:00] VITALS: BP 166/59; PULSE 115; RESP 20; TEMP 97.9; O2SAT 94
[2017-01-28] MEDS ORDERED: METO-309 PO (23:51)
[2017-01-29] VITALS (9 sets, daily range): BP systolic 136–157; BP diastolic 60–74; PULSE 84–115; RESP 16–20; TEMP 96–97.4; O2SAT 91–95
[2017-01-29] MEDS ORDERED: METOPROLOL TARTRATE 25 MG TAB PO ONE ×2 (00:30→09:00)
[2017-01-29] MEDS: OCTREOTIDE INJ 500 MCG in SODIUM CHLORID 0.9% 500 ML INJ 500 ML IV SCH (05:55)
[2017-01-29] MEDS: PANTOPRAZOLE INJ 80 MG in SODIUM CHLORIDE 0.9% INJ 100 ML IV SCH (05:55)
[2017-01-29 07:05] LABS: MEAN CELL VOLUME 104.1 FL (80.0-100.0); MEAN CORPUSCULAR HEMOGLOBIN 36.4 PG (27.0-34.0); MEAN CORPUSCULAR HGB CONC 34.9 % (32.0-36.0); PLATELET COUNT 42 TH/MM3 (150-450); RED BLOOD COUNT 2.41 MIL/MM3 (4.50-5.90); RED CELL DISTRIBUTION WIDTH 18.9 % (11.6-17.2); WHITE BLOOD COUNT 2.1 TH/MM3 (4.0-11.0)
[2017-01-29 07:18] LABS: INTERNATIONAL NORMALIZED RATIO 1.8 RATIO; PROTHROMBIN TIME - PATIENT 20.6 SEC (9.8-11.6)
[2017-01-29 07:24] LABS: ALT (GPT) 28 U/L (12-78); ANION GAP 9 MEQ/L (5-15); AST (GOT) 54 U/L (15-37); BICARBONATE 27.6 MEQ/L (21.0-32.0); BLOOD UREA NITROGEN 11 MG/DL (7-18); CHLORIDE 104 MEQ/L (98-107); GLOMERULAR FILTRATION RATE 186 ML/MIN (>89); POTASSIUM 4.4 MEQ/L (3.5-5.1); SODIUM (NA) 141 MEQ/L (136-145)
[2017-01-29 07:26] LABS: ALKALINE PHOSPHATASE 91 U/L (45-117); TOTAL BILIRUBIN ADULT 9.8 MG/DL (0.2-1.0)
[2017-01-29 07:54] LABS: HEMO FLAGS AUTO DIFF
[2017-01-29 07:59] LABS: BANDS 30 % (0-6); EOSINOPHILS 3 % (0-4); NEUTROPHIL # MANUAL DIFF 1.9 TH/MM3 (1.8-7.7); POLYS (SEG NEUTROPHILS) 59 % (16-70); WBC DIFF SAMPLE 100
[2017-01-29 08:00] LABS: ACANTHOCYTES 1+ (NORMAL)
[2017-01-29 08:01] LABS: HELMET CELLS OCC (NORMAL); PLATELET ESTIMATE SMEAR LOW (NORMAL); PLATELET MORPHOLOGY NORMAL (NORMAL); SCAN/DIFF FINAL DIFF MANUAL
[2017-01-29] MEDS: SODIUM CHLORIDE 0.9% FLUSH 5 ML FLUSH FLUSH SCH ×2 (08:17→21:00)
--- NOTE | 2017-01-29 08:28 | PD.CONS ---
HPI History of Present Illness This is a 61 year old male with a hx of liver cirrhosis. He reports that he was told back 15 months ago that he had a fatty liver and then in March, when he was hospitalized for severe anemia, he was told that he had liver cirrhosis. He quit drinking at that time. He was recently established with the [facility] for liver transplant evaluation, Caitlin Styles . He was seen last week for imaging and is going back on 02/03/17 for further tests. He now presents to the ER for hematemesis, consisting of a small amount of black emesis. He reports that yesterday morning, he just "didn't feel right." He took his blood pressure and reports that this was slightly higher than normal and that his oxygen saturation was slightly low. He also had very mild abdominal cramping. Shortly after he had one episode of vomiting a small amount of black liquid, less than 8oz. He reports that after vomiting, he felt completely fine and did not have any other episodes. His stool has remained light brown the whole time. He states he is feeling great now and is hoping to be discharged home. He is very reluctant to have another endoscopy, as he reports that he has had 2 in the past month. His last S/P EGD (01/09/17) revealed portal gastropathy and Russell's esophagus. He takes Protonix 40mg po BID at home and does not take any NSAIDs. (Natalia Anderson) PFSH Past Medical History Chronic Thrombocytopenia Liver cirrhosis. GI Bleeding Alicia Dyson Tear Esophagitis Hemothorax after a fall Kidney stone Past Surgical History Bone spur removed from right elbow Lithotripsy for nephrolithiasis Thoracentesis Paracentesis Chest tube placement Pleurx catheter placement (Natalia Anderson) Coded Allergies: No Known Allergies (Unverified , 01/08/17) Medications Allergies Coded Allergies Type Severity Reaction Last Updated Verified No Known Allergies 01/08/17 No Active Scripts Medications Dose Route/Sig Days Date Category Lopressor (Metoprolol Tartrate) 50 Mg Tab 25 Mg PO DAILY 01/28/17 Reported Protonix (Pantoprazole Sodium) 40 Mg Tab 40 Mg PO BID 01/11/17 Rx Family History Mother from breast cancer Father from CAD/NH Social History States he previously drank 6 beers per day per for 40 years but quit drinking in March 2016 Denies use of illicit drugs (AndersonNatalia) Review of Systems Constitutional: DENIES: Fatigue, Weight loss, Change in appetite Cardiovascular: DENIES: Chest pain Gastrointestinal: COMPLAINS OF: Abdominal pain, Nausea, Vomiting, Hematemesis, DENIES: Black stools, Bloody stools, Constipation, Diarrhea, Swelling of Abdomen, Heartburn Integumentary: DENIES: Abnormal pigmentation Hematologic/lymphatic: COMPLAINS OF: Bruising Neurologic: DENIES: Headache Psychiatric: DENIES: Confusion (Natalia Anderson) GI Exam Vitals I&O Vital Signs Date Time Temp Pulse Resp B/P Pulse Ox O2 Delivery O2 Flow Rate FiO2 01/29/17 07:55 95 Nasal Cannula 2.00 01/29/17 04:45 97.4 96 18 157/69 95 01/29/17 00:04 115 01/28/17 22:00 97.9 115 20 166/59 94 01/28/17 20:00 109 16 149/74 97 Nasal Cannula 2 01/28/17 18:30 113 18 150/74 94 01/28/17 18:30 92 01/28/17 17:40 98.2 125 16 167/79 93 I/O 01/28/17 01/28/17 01/28/17 01/29/17 01/29/17 01/29/17 07:00 15:00 23:00 07:00 15:00 23:00 Intake Total 287 ml 302 ml Output Total 875 ml Balance -588 ml 302 ml Intake Oral 120 ml IV Total 167 ml 302 ml Output Urine Total 875 ml # Voids 1 # Bowel Movements 0 Laboratory Test 01/28/17 01/29/17 18:24 06:18 White Blood Count 2.5 TH/MM3 2.1 TH/MM3 Red Blood Count 2.70 MIL/MM3 2.41 MIL/MM3 Hemoglobin 9.6 GM/DL 8.8 GM/DL Hematocrit 27.7 % 25.0 % Mean Corpuscular Volume 102.7 FL 104.1 FL Mean Corpuscular Hemoglobin 35.6 PG 36.4 PG Mean Corpuscular Hemoglobin 34.7 % 34.9 % Concent Red Cell Distribution Width 19.8 % 18.9 % Platelet Count 54 TH/MM3 42 TH/MM3 Mean Platelet Volume 8.4 FL 7.3 FL Neutrophils (%) (Auto) 81.0 % % Lymphocytes (%) (Auto) 9.1 % % Monocytes (%) (Auto) 8.4 % % Eosinophils (%) (Auto) 1.0 % % Basophils (%) (Auto) 0.5 % % Neutrophils # (Auto) 2.0 TH/MM3 TH/MM3 Lymphocytes # (Auto) 0.2 TH/MM3 TH/MM3 Monocytes # (Auto) 0.2 TH/MM3 TH/MM3 Eosinophils # (Auto) 0.0 TH/MM3 TH/MM3 Basophils # (Auto) 0.0 TH/MM3 TH/MM3 CBC Comment AUTO DIFF AUTO DIFF Differential Comment AUTO DIFF FINAL DIFF CONFIRMED MANUAL Prothrombin Time 19.0 SEC 20.6 SEC Prothromb Time International 1.7 RATIO 1.8 RATIO Ratio Activated Partial 35.1 SEC Thromboplast Time Sodium Level 138 MEQ/L 141 MEQ/L Potassium Level 4.0 MEQ/L 4.4 MEQ/L Chloride Level 99 MEQ/L 104 MEQ/L Carbon Dioxide Level 30.5 MEQ/L 27.6 MEQ/L Anion Gap 9 MEQ/L 9 MEQ/L Blood Urea Nitrogen 9 MG/DL 11 MG/DL Creatinine 0.68 MG/DL 0.46 MG/DL Estimat Glomerular Filtration 119 ML/MIN 186 ML/MIN Rate Random Glucose 126 MG/DL 101 MG/DL Calcium Level 8.2 MG/DL 8.1 MG/DL Total Bilirubin 10.8 MG/DL 9.8 MG/DL Aspartate Amino Transf 72 U/L 54 U/L (AST/SGOT) Alanine Aminotransferase 38 U/L 28 U/L (ALT/SGPT) Alkaline Phosphatase 113 U/L 91 U/L Total Protein 7.5 GM/DL 6.1 GM/DL Albumin 2.5 GM/DL 2.1 GM/DL Blood Type B POSITIVE Antibody Screen NEGATIVE Differential Total Cells 100 Counted Neutrophils % (Manual) 59 % Band Neutrophils % 30 % Lymphocytes % 7 % Monocytes % 1 % Eosinophils % 3 % Neutrophils # (Manual) 1.9 TH/MM3 Platelet Estimate LOW Platelet Morphology Comment NORMAL Helmet Cells OCC Acanthocytes 1+ Physical Examination HEENT: Normocephalic; atraumatic; no jaundice. CHEST: CTA CARDIAC: RRR. ABDOMEN: Soft, ascites- not tense, nontender; hepatosplenomegaly; bowel sounds are present in all four quadrants. EXTREMITIES: No clubbing, cyanosis, or edema. SKIN: Normal; no rash; no jaundice. FILM EDITOR: No focal deficits; alert and oriented times three. (Natalia Anderson) Assessment and Plan Plan ASSESSMENT: - Upper GI bleed with hematemesis in patient with known liver cirrhosis, esophageal varices, portal gastropathy. Pt came to the ER after one episode of hematemesis consisting of small amount of black liquid, less than 8oz. Has not had further bleeding. His stools have remained light brown. S/P EGD (01/09/17)---> portal gastropathy , Russell's esophagus. Octreotide Gtt, Protonix Gtt. No n/v/pain. HH is 8.8/25.0. - Anemia, acute blood loss. HH is 8.8/25.0. - Coagulopathy. INR 1.8 - Liver cirrhosis. Told he had fatty liver 15 months ago and then liver cirrhosis back in March. He quit drinking at that time and is being followed at [facility] for liver transplant. Caitlin Styles . Last seen last week for US. Has appointment 02/03 for further testing. T. Bili 9.8, AST 54, ALT 28, Alk Phosph 91. PLAN: - Clear liquids - D/C protonix gtt - D/C Octreotide Gtt - Protonix 40mg po BID - Monitor HH - Transfuse as necessary - Will monitor HH today and if this remains stable and no further bleeding, possible d/c home tomorrow - Further recommendations to follow based on results of above - Pt seen and examined by Dr. Yan and myself and this note is written on his behalf (Natalia Anderson) Physician Comments Patient Seen and examined Agree with above Continue with current supportive care Monitor labs If all is stable tomorrow patient may be discharged to follow up as an outpatient (Vish Yan MD) Natalia Anderson Jan 29, 2017 08:28 Vish Yan MD Jan 29, 2017 18:37
[2017-01-29] MEDS ORDERED: METOPROLOL TARTRATE 25 MG TAB PO SCH (09:00)
[2017-01-29] MEDS ORDERED: METOPROLOL TARTRATE 50 MG TAB PO SCH (09:00)
[2017-01-29] MEDS: METOPROLOL TARTRATE 25 MG TAB PO SCH (10:15)
[2017-01-29 13:46] LABS: HEMATOCRIT 25.2 % (39.0-51.0)
[2017-01-29 13:47] LABS: REVIEW FLAG FINAL
--- NOTE | 2017-01-29 16:53 | HHI.PR ---
Subjective Remarks Patient resting in bed comfortably She is afebrile, stated no episode of hematemesis today no bleeding in the stool Abdominal pain nausea vomiting She saw GI nurse practitioner today Objective Vitals Vital Signs Date Time Temp Pulse Resp B/P Pulse Ox O2 Delivery O2 Flow Rate FiO2 01/29/17 12:00 96.9 85 20 136/65 93 01/29/17 08:20 95 Nasal Cannula 2.00 01/29/17 08:00 96.0 88 18 142/74 94 01/29/17 07:56 87 01/29/17 07:55 95 Nasal Cannula 2.00 01/29/17 04:45 97.4 96 18 157/69 95 01/29/17 00:04 115 01/28/17 22:00 97.9 115 20 166/59 94 01/28/17 20:00 109 16 149/74 97 Nasal Cannula 2 01/28/17 18:30 113 18 150/74 94 01/28/17 18:30 92 01/28/17 17:40 98.2 125 16 167/79 93 I/O 01/28/17 01/28/17 01/28/17 01/29/17 01/29/17 01/29/17 07:00 15:00 23:00 07:00 15:00 23:00 Intake Total 287 ml 302 ml Output Total 875 ml Balance -588 ml 302 ml Intake Oral 120 ml IV Total 167 ml 302 ml Output Urine Total 875 ml # Voids 1 # Bowel Movements 0 Result Diagram: 01/29/17 1300 01/29/17 0618 Objective Remarks GENERAL: This is a well-nourished, well-developed patient, in no apparent distress. SKIN: No rashes, warm and dry HEAD: Atraumatic. Normocephalic. EYES: Pupils equal round and reactive. Extraocular motions intact. No scleral icterus. ENT: Nose without bleeding, or drainage, Airway patent. NECK: Trachea midline. Supple CARDIOVASCULAR: Regular rate and rhythm without murmurs, gallops, or rubs. RESPIRATORY: Fair air entry bilaterally. No wheezes, rales, or rhonchi. GASTROINTESTINAL: Abdomen soft, non-tender, nondistended. Positive bowel sounds MUSCULOSKELETAL: Extremities without clubbing, cyanosis, or edema. Pedal pulses appreciated NEUROLOGICAL: Awake and alert. Moves all extremity. Normal speech.no focal neurological deficit A/P Problem List: (1) GI bleed ICD Code: K92.2 Status: Acute (2) Cirrhosis ICD Code: K74.60 Status: Acute (3) Thrombocytopenia ICD Code: D69.6 Status: Acute (4) Coagulopathy ICD Code: D68.9 Status: Acute Assessment and Plan - GI Bleed: Cirrhosis/Coagulopathy w/ h/o GI Bleed, recent admit 01/08-01/11/17 for same, s/p EGD w/ Dr. Marie found to have Alicia Dyson tear, compliant w / Protonix. Vitals stable. Hgb 9.6, previously 8.5 on 01/11/17. Will monitor, Type & Screen, transfuse as needed. Started on Octreotide/Protonix gtt in ER. Dr. Yan consulted, will eval in am. No further hematemesis . - Cirrhosis: Secondary to Alcohol Abuse, quit 5 months ago. Referred to [place] by Dr. Marie for Liver Transplant, - Thrombocytopenia: Chronic. Secondary to cirrhosis/alcohol abuse. Platelets 54, previously 49 on 01/10/17. Will monitor. - Coagulopathy: INR 1.8 today. Secondary to Cirrhosis from Alcohol Abuse. Type & Screen for possible transfusion, currently hemodynamically stable w/ no ongoing bleeding. - DVT Prophylaxis: Pharmacologic contraindication secondary to GI Bleed/ Cirrhosis/Coagulopathy. Albert Thompson MD Jan 29, 2017 16:53
[2017-01-29 19:24] LABS: HEMATOCRIT 24.4 % (39.0-51.0)
[2017-01-29 19:43] LABS: REVIEW FLAG FINAL
[2017-01-29] MEDS: PANTOPRAZOLE SOD 40 MG DELAYED RELEASE TAB PO SCH (21:45)
[2017-01-30] VITALS: BP 125/77; PULSE 90; RESP 16; TEMP 97.2; O2SAT 92
[2017-01-30 04:00] VITALS: BP 122/58; PULSE 90; RESP 18; TEMP 98.4; O2SAT 91
[2017-01-30] MEDS: METOPROLOL TARTRATE 25 MG TAB PO SCH (07:49)
[2017-01-30] MEDS: SODIUM CHLORIDE 0.9% FLUSH 5 ML FLUSH FLUSH SCH (07:49)
[2017-01-30] MEDS: PANTOPRAZOLE SOD 40 MG DELAYED RELEASE TAB PO SCH (07:49)
[2017-01-30 08:04] VITALS: O2SAT 94
[2017-01-30 08:09] VITALS: BP 148/68; PULSE 75; RESP 18; TEMP 97.6; O2SAT 94
--- NOTE | 2017-01-30 10:09 | HHI.GIFU ---
Subjective Remarks Resting in bed. No active bleeding. States he has to go home because his fell and broke her clavicle and a few ribs and is unable to get around well. Tolerating clears. Objective Vitals I&O Vital Signs Date Time Temp Pulse Resp B/P Pulse Ox O2 Delivery O2 Flow Rate FiO2 01/30/17 08:09 97.6 75 18 148/68 94 01/30/17 04:00 98.4 90 18 122/58 91 01/30/17 00:00 97.2 90 16 125/77 92 01/29/17 20:00 96.4 86 16 137/60 92 01/29/17 17:52 94 Nasal Cannula 2.00 01/29/17 16:00 97.2 84 20 149/70 91 01/29/17 12:00 96.9 85 20 136/65 93 I/O 01/29/17 01/29/17 01/29/17 01/30/17 01/30/17 01/30/17 07:00 15:00 23:00 07:00 15:00 23:00 Intake Total 287 ml 1702 ml 480 ml 240 ml 0 ml Output Total 875 ml 300 ml Balance -588 ml 1702 ml 180 ml 240 ml 0 ml Intake Oral 120 ml 1400 ml 480 ml 240 ml IV Total 167 ml 302 ml 0 ml 0 ml Output Urine Total 875 ml 300 ml # Voids 3 2 # Bowel Movements 0 2 0 0 Laboratory Laboratory Tests Test 01/29/17 01/29/17 13:00 19:04 Hemoglobin 8.9 8.6 Hematocrit 25.2 24.4 Physical Exam HEENT: Normocephalic; atraumatic; no jaundice. CHEST: CTA CARDIAC: RRR. ABDOMEN: Soft, nondistended, nontender; hepatosplenomegaly; bowel sounds are present in all four quadrants. EXTREMITIES: No clubbing, cyanosis, or edema. SKIN: Normal; no rash; no jaundice. BATTERY MECHANIC: No focal deficits; alert and oriented times three. Assessment and Plan Plan ASSESSMENT: - Upper GI bleed with hematemesis in patient with known liver cirrhosis, esophageal varices, portal gastropathy. Pt came to the ER after one episode of hematemesis consisting of small amount of black liquid, less than 8oz. Has not had further bleeding. His stools have remained light brown. S/P EGD (01/09/17)---> portal gastropathy , Russell's esophagus. Protonix . No n/v/pain. No further bleeding. HH 8.6/24.4. - Anemia, acute blood loss. HH 8.6/24.4. - Coagulopathy. INR 1.8 - Liver cirrhosis. Told he had fatty liver 15 months ago and then liver cirrhosis back in March. He quit drinking at that time and is being followed at [facility] for liver transplant. Caitlin Styles . Last seen last week for US. Has appointment 02/03 for further testing. T. Bili 9.8, AST 54, ALT 28, Alk Phosph 91 yesterday PLAN: - Okay to d/c home from GI standpint - Low sodium diet - Protonix 40mg po BID - LFT in one week - FU OVIDIO in 2 weeks - Pt seen and examined by Dr. Marie and myself and this note is written on his behalf Natalia Anderson Jan 30, 2017 10:09
[2017-01-30 11:57] VITALS: BP_SYST 130; BP_SYST 138; BP_DIAS 67; BP_DIAS 77; PULSE 71; PULSE 74; RESP 18; TEMP 96.9; TEMP 98.7; O2SAT 94
[2017-01-30 16:16] VITALS: BP 149/65; PULSE 75; RESP 18; TEMP 97.1; O2SAT 93
--- NOTE | 2017-01-30 16:30 | HHI.PR ---
Subjective Remarks doing well hb stable no abd pain , no cp cleared by gi for dc and ff outpt Objective Vitals Vital Signs Date Time Temp Pulse Resp B/P Pulse Ox O2 Delivery O2 Flow Rate FiO2 01/30/17 16:16 97.1 75 18 149/65 93 01/30/17 11:57 96.9 74 18 138/67 94 01/30/17 08:09 97.6 75 18 148/68 94 01/30/17 08:04 94 01/30/17 04:00 98.4 90 18 122/58 91 01/30/17 00:00 97.2 90 16 125/77 92 01/29/17 20:00 96.4 86 16 137/60 92 01/29/17 17:52 94 Nasal Cannula 2.00 I/O 01/29/17 01/29/17 01/29/17 01/30/17 01/30/17 01/30/17 07:00 15:00 23:00 07:00 15:00 23:00 Intake Total 287 ml 1702 ml 480 ml 240 ml 840 ml Output Total 875 ml 300 ml Balance -588 ml 1702 ml 180 ml 240 ml 840 ml Intake Oral 120 ml 1400 ml 480 ml 240 ml 840 ml IV Total 167 ml 302 ml 0 ml 0 ml Output Urine Total 875 ml 300 ml # Voids 3 2 4 # Bowel Movements 0 2 0 0 0 Result Diagram: 01/29/17 1904 01/29/17 0618 Objective Remarks GENERAL: This is a well-nourished, well-developed patient, in no apparent distress. SKIN: No rashes, warm and dry HEAD: Atraumatic. Normocephalic. EYES: Pupils equal round and reactive. Extraocular motions intact. No scleral icterus. ENT: Nose without bleeding, or drainage, Airway patent. NECK: Trachea midline. Supple CARDIOVASCULAR: Regular rate and rhythm without murmurs, gallops, or rubs. RESPIRATORY: Fair air entry bilaterally. No wheezes, rales, or rhonchi. GASTROINTESTINAL: Abdomen soft, non-tender, nondistended. Positive bowel sounds MUSCULOSKELETAL: Extremities without clubbing, cyanosis, or edema. Pedal pulses appreciated NEUROLOGICAL: Awake and alert. Moves all extremity. Normal speech.no focal neurological deficit A/P Problem List: (1) GI bleed ICD Code: K92.2 Status: Acute (2) Cirrhosis ICD Code: K74.60 Status: Acute (3) Thrombocytopenia ICD Code: D69.6 Status: Acute (4) Coagulopathy ICD Code: D68.9 Status: Acute Assessment and Plan - GI Bleed: Cirrhosis/Coagulopathy w/ h/o GI Bleed, recent admit 01/08-01/11/17 for same, s/p EGD w/ Dr. Marie found to have Alicia Dyson tear, compliant w / Protonix. Vitals stable. Hgb 9.6, previously 8.5 on 01/11/17. Will monitor, Type & Screen, transfuse as needed. Started on Octreotide/Protonix gtt in ER. GI consulted, No further hematemesis . - Cirrhosis: Secondary to Alcohol Abuse, quit 5 months ago. Referred to [place] by Dr. Marie for Liver Transplant, - Thrombocytopenia: Chronic. Secondary to cirrhosis/alcohol abuse. Platelets 54, previously 49 on 01/10/17. Will monitor. - Coagulopathy: INR 1.8. Secondary to Cirrhosis from Alcohol Abuse. Type & Screen for possible transfusion, currently hemodynamically stable w/ no ongoing bleeding. - DVT Prophylaxis: Pharmacologic contraindication secondary to GI Bleed/ Cirrhosis/Coagulopathy. cleared by GI to dc and ff outpt Discharge Planning Discharge patient to home Condition on discharge: Improved Regular Diet as tolerated Ad Suzie activity Rx written:see med rec Follow-up with primary care physician in 1 week with GI as directed Albert Thompson MD Jan 30, 2017 16:30
== END 2017-01-30 17:55 | disposition home or self-care (01) | DRG 369 ==
LOC: NEPE 17:37 → NEDA 20:27 → N07B 22:22
PROVIDERS: ADMIT Hospitalist; ATTEND Hospitalist
DX: K22.6 Gastro-esophageal laceration-hemorrhage syndrome (principal); D61.818 Other pancytopenia; D68.9 Coagulation defect, unspecified; D62 Acute posthemorrhagic anemia; K70.30 Alcoholic cirrhosis of liver without ascites; K92.2 Gastrointestinal hemorrhage, unspecified; K22.70 Barrett's esophagus without dysplasia; I85.00 Esophageal varices without bleeding; F10.10 Alcohol abuse, uncomplicated; K76.0 Fatty (change of) liver, not elsewhere classified; K31.89 Other diseases of stomach and duodenum; Z87.442 Personal history of urinary calculi
CPT/HCPCS: 80053; 85007; 85014; 85018; 85025; 85027; 85610; 85730; 86850; 86900; 86901; 96374; C9113; J2354; J7030; J7040

== ENCOUNTER 2017-04-08 07:33 | Inpatient (IN) | payer BC ==
[2017-04-08] VITALS (19 sets, daily range): BP systolic 100–148; BP diastolic 54–81; PULSE 80–112; RESP 9–38; TEMP 98.2–98.7; O2SAT 94–100
[~2017-04-08] VITALS: Ht 172.7 cm; Wt 70.2 kg
[~2017-04-08 07:33] MED LIST changes: +METO-309 PO
[2017-04-08] MEDS ORDERED: SODIUM CHLOR 0.9% 1000 ML INJ 1,000 ML IV SCH (07:52)
--- NOTE | 2017-04-08 07:59 | PD ---
HPI Chief Complaint: GI Complaint Time Seen by Provider: 07:43 Travel History International Travel<30 days: No Contact w/Intl Traveler<30days: No Traveled to known affect area: No History of Present Illness HPI 61yo M with PMH of liver cirrhosis, esophageal varices, portal gastropathy presents to the ED with c/o hematemesis. Pt had 2 episodes of dark, clots yesterday night and today felt generalized weakness and lightheaded. When EVAC arrived, he had episode of about 300cc of fresh red hematemesis. Pt was given zofran and felt better. Pt was last admitted for hematemesis in 01/2017 and had followed up with his GI doctor Dr. Bagley who referred him to [facility]. State that he last had endoscopy in 02/2017 and it was fine and was refer back to Dr. Bagley. As per our record, EGD in 01/09/17 showed portal gastropathy and barretts esophagus. Denies any fever, cough, chest pain, sob, abdominal pain, focal weakness or numbness. Pt did not fall today but whether sat down on the floor because he was feeling so weak and could not get up. Denies any head trauma or LOC. PFSH Past Medical History Hx Anticoagulant Therapy: No Anemia: Yes (thrombocytopenia ) Asthma: No Autoimmune Disease: No Anxiety: No Depression: No Cancer: No Cardiovascular Problems: Yes (HTN ) Cirrhosis: Yes (Cirrhosis of the liver) COPD: No Cerebrovascular Accident: No Diabetes: No Diminished Hearing: No Endocrine: No Gastrointestinal Disorders: Yes (hx of esophageal varices) Genitourinary: Yes Headaches: No Heparin Induced Thrombocytopen: No Immune Disorder: No Implanted Vascular Access Dvce: No Kidney Stones: Yes (2009) Musculoskeletal: No Neurologic: Yes Psychiatric: No Reproductive: No Respiratory: Yes (Rt chest tubes) Migraines: No Renal Failure: No Seizures: No Sickle Cell Disease: No Sleep Apnea: No Thyroid Disease: No ?: Not Past Surgical History AICD: No Arteriovenous Shunt: No Cardiac Surgery: No Ear Surgery: No Endocrine Surgery: No Eye Surgery: No Genitourinary Surgery: No Gynecologic Surgery: No Insulin Pump: No Joint Replacement: No Neurologic Surgery: No Oral Surgery: No Pacemaker: No Thoracic Surgery: Yes (right side chest tubes) Other Surgery: Yes (R ELBOW BONE SPUR REMOVAL, Rt chest tubes for pleural effusion Aug 2016) Social History Alcohol Use: No Tobacco Use: No Substance Use: No Allergies-Medications (Allergen,Severity, Reaction): Coded Allergies: No Known Allergies (Unverified , 01/08/17) Reported Meds & Prescriptions Reported Meds & Active Scripts Active Protonix (Pantoprazole Sodium) 40 Mg Tab 40 Mg PO BID Reported Lopressor (Metoprolol Tartrate) 50 Mg Tab 25 Mg PO DAILY Review of Systems Except as stated in HPI: all other systems reviewed are Neg Physical Exam Narrative GENERAL: 61yo M in mild distress. SKIN: Focused skin assessment warm/dry. Jaundice. HEAD: Atraumatic. Normocephalic. EYES: Pupils equal and round. EOMI. + scleral icterus. ENT: No nasal bleeding or discharge. Dark tongue, dried blood around mouth. NECK: Trachea midline. No JVD. CARDIOVASCULAR: Tachycardic in the 110s. No murmur appreciated. RESPIRATORY: No accessory muscle use. Clear to auscultation. Breath sounds equal bilaterally. GASTROINTESTINAL: Abdomen soft, non-tender, nondistended. No rebound tenderness or guarding. MUSCULOSKELETAL: No obvious deformities. No clubbing. No cyanosis. No edema. NEUROLOGICAL: Awake and alert. No obvious cranial nerve deficits. Motor grossly within normal limits. Normal speech. PSYCHIATRIC: Appropriate mood and affect; insight and judgment normal. Data Data Last Documented VS Vital Signs Date Time Temp Pulse Resp B/P Pulse Ox O2 Delivery O2 Flow Rate FiO2 04/08/17 08:30 18 100 Nasal Cannula 2 04/08/17 08:30 104 146/67 04/08/17 07:42 98.2 Orders Complete Blood Count With Diff (04/08/17 07:52) Comprehensive Metabolic Panel (04/08/17 07:52) Lipase (04/08/17 07:52) Prothrombin Time / Inr (Pt) (04/08/17 07:52) Act Partial Throm Time (Ptt) (04/08/17 07:52) Alcohol (Ethanol) (04/08/17 07:52) Type And Screen (04/08/17 07:52) Ecg Monitoring (04/08/17 07:52) Iv Access Insert/Monitor (04/08/17 07:52) Oximetry (04/08/17 07:52) Sodium Chlor 0.9% 1000 Ml Inj (Ns 1000 M (04/08/17 07:52) Sodium Chloride 0.9% Flush (Ns Flush) (04/08/17 08:00) Octreotide Inj (Sandostatin Inj) (04/08/17 08:00) Pantoprazole Inj (Protonix Inj) (04/08/17 08:00) Pantoprazole Inj (Protonix Inj) (04/08/17 08:00) Chest, Single Ap (04/08/17 ) Red Blood Cells (Rbc) (04/08/17 08:45) Blood Product Administration .UPON TRANSFUSION (04/08/17 08:45) Sodium Chlor 0.9% 250 Ml Inj (Ns 250 Ml (04/08/17 08:45) Ondansetron Inj (Zofran Inj) (04/08/17 09:00) Fresh Frozen Plasma (Ffp) (04/08/17 08:49) Sodium Chlor 0.9% 250 Ml Inj (Ns 250 Ml (04/08/17 09:00) Platelet Pheresis (04/08/17 08:49) Blood Product Administration .UPON TRANSFUSION (04/08/17 08:49) Sodium Chlor 0.9% 250 Ml Inj (Ns 250 Ml (04/08/17 09:00) Admit Order (Ed Use Only) (04/08/17 09:56) Labs Laboratory Tests Test 04/08/17 04/08/17 04/08/17 07:56 08:45 08:49 White Blood Count 5.4 TH/MM3 Red Blood Count 2.23 MIL/MM3 Hemoglobin 8.1 GM/DL Hematocrit 23.3 % Mean Corpuscular Volume 104.2 FL Mean Corpuscular Hemoglobin 36.4 PG Mean Corpuscular Hemoglobin 35.0 % Concent Red Cell Distribution Width 14.5 % Platelet Count 52 TH/MM3 Mean Platelet Volume 9.4 FL Neutrophils (%) (Auto) 87.5 % Lymphocytes (%) (Auto) 6.3 % Monocytes (%) (Auto) 6.0 % Eosinophils (%) (Auto) 0.1 % Basophils (%) (Auto) 0.1 % Neutrophils # (Auto) 4.8 TH/MM3 Lymphocytes # (Auto) 0.3 TH/MM3 Monocytes # (Auto) 0.3 TH/MM3 Eosinophils # (Auto) 0.0 TH/MM3 Basophils # (Auto) 0.0 TH/MM3 CBC Comment AUTO DIFF Differential Total Cells 100 Counted Neutrophils % (Manual) 68 % Band Neutrophils % 19 % Lymphocytes % 7 % Monocytes % 5 % Basophils % 1 % Neutrophils # (Manual) 4.7 TH/MM3 Differential Comment FINAL DIFF MANUAL Platelet Estimate LOW Platelet Morphology Comment NORMAL Prothrombin Time 21.4 SEC Prothromb Time International 1.9 RATIO Ratio Activated Partial 36.9 SEC Thromboplast Time Sodium Level 142 MEQ/L Potassium Level 4.3 MEQ/L Chloride Level 100 MEQ/L Carbon Dioxide Level 31.8 MEQ/L Anion Gap 10 MEQ/L Blood Urea Nitrogen 27 MG/DL Creatinine 0.73 MG/DL Estimat Glomerular Filtration 109 ML/MIN Rate Random Glucose 167 MG/DL Calcium Level 8.5 MG/DL Total Bilirubin 6.7 MG/DL Aspartate Amino Transf 59 U/L (AST/SGOT) Alanine Aminotransferase 33 U/L (ALT/SGPT) Alkaline Phosphatase 101 U/L Total Protein 6.7 GM/DL Albumin 2.2 GM/DL Lipase 165 U/L Ethyl Alcohol Level 4 MG/DL Blood Type B POSITIVE Antibody Screen NEGATIVE Crossmatch Leukocyte-Reduced Red Blood Cells Blood Bank Comment MDM Medical Decision Making Medical Screen Exam Complete: Yes Emergency Medical Condition: Yes Interpretation(s) EKG: Sinus tachycardia at 111bpm. RBBB. Similar to prior EKG. Differential Diagnosis Upper GI bleed from esophagitis vs. variceal bleed vs. peptic ulcer Narrative Course 61yo M with history of cirrhosis and esophageal varices here with episodes of hematemesis. Pt is mildly tachycardic and last had episode of red hematemesis when [facility]AC arrived at his home. Pt had 2 large bore IVs and labs including type and screen were obtained. Octreotide, protonix bolus and drip was ordered. Pt given NS IVF. CXR showed right basilar pleural parenchymal density likely combination of pleural effusion and atelectasis. Pt had episode of 300cc of bright red hematemesis in the ED at 8:44am. Pt given zofran 4mg IV. Ordered 4 units of PRBC (transfuse 2 now), 1 unit platelet , 1 unit of FFP. Pt has 2 20 gauge peripheral IVs. We placed another large bore peripheral IV. Discussed with GI Dr. Bennett and she is aware of the patient. Labs reviewed, H/H 8.1/23[place] [id number]. Prolonged coags. GI ACO COORDINATOR is at bedside. Pt again had another episode of bright red hematemesis, about 100cc at 9:40am. BP: 140/65. HR 114. 99% RA. Pt has 3 large bore peripheral IVs at this time. Discussed with squirrel man Dr. Bonilla and accepted to his service. Critical Care Narrative Aggregate critical care time was 90 minutes. Time to perform other separately billable procedures was not included in the critical care time. My time did not include minutes spent treating any other patients simultaneously or on activities that did not directly contribute to the patient's treatment. The services I provided to this patient were to treat and/or prevent clinically significant deterioration that could result in: cardiovascular collapse or . I provided critical care services requiring my management, as noted below: Chart data review, documentation time, medication orders and management, vital sign assessments/reviewing monitor data, ordering and reviewing lab tests, ordering and interpreting/reviewing x-rays and diagnostic studies, care of the patient and discussion of the patient with the admitting physicians. Diagnosis Primary Impression: Upper GI bleed Admitting Information Admitting Physician Requests: Lulú Spicer DO April 08, 2017 07:59
[2017-04-08] MEDS ORDERED: PANTOPRAZOLE INJ 80 MG in SODIUM CHLORIDE 0.9% INJ 35 ML IV ONE (08:00)
[2017-04-08] MEDS ORDERED: SODIUM CHLORIDE 0.9% FLUSH 10 ML FLUSH IVF PRN (08:00)
[2017-04-08] MEDS: PANTOPRAZOLE INJ 80 MG in SODIUM CHLORIDE 0.9% INJ 100 ML IV SCH ×2 (08:22→18:13)
[2017-04-08] MEDS: OCTREOTIDE INJ 500 MCG in SODIUM CHLORID 0.9% 500 ML INJ 500 ML IV SCH ×2 (08:22→18:13)
[2017-04-08 08:32] LABS: AUTOMATED NEUTROPHIL # 4.8 TH/MM3 (1.8-7.7); BASOPHIL % 0.1 % (0.0-2.0); EOSINOPHIL % 0.1 % (0.0-4.0); HEMATOCRIT 23.3 % (39.0-51.0); LYMPH % 6.3 % (9.0-44.0); LYMPHOCYTE # 0.3 TH/MM3 (1.0-4.8); MEAN CELL VOLUME 104.2 FL (80.0-100.0); MEAN CORPUSCULAR HEMOGLOBIN 36.4 PG (27.0-34.0); NEUT % 87.5 % (16.0-70.0); PLATELET COUNT 52 TH/MM3 (150-450); RED BLOOD COUNT 2.23 MIL/MM3 (4.50-5.90); RED CELL DISTRIBUTION WIDTH 14.5 % (11.6-17.2); WHITE BLOOD COUNT 5.4 TH/MM3 (4.0-11.0)
--- NOTE | 2017-04-08 08:33 | RADRPT ---
EXAM DATE/TIME: 04/08/2017 08:24 [facility] COMPARISON: CHEST PA & LAT, October 09, 2016, 12:36. INDICATIONS : Lower chest pain. Possible free air. MEDICAL HISTORY : None. SURGICAL HISTORY : None. ENCOUNTER: Initial ACUITY: 3 days PAIN SCORE: 7/10 LOCATION: Bilateral chest FINDINGS: A single view of the chest demonstrates a right basilar pleural-parenchymal density with minimal felisa ed loss. Left lung clear. Heart normal in size.. Osseous structures are intact. CONCLUSION: 1. Right basilar pleural-parenchymal density likely combination of pleural effusion and atelectasis. 2. Left lung clear. Jerardo Alejandro MD on April 08, 2017 at 8:30 Board Certified Radiologist. This report was verified electronically.
[2017-04-08 08:39] LABS: HEMO FLAGS AUTO DIFF
[2017-04-08 08:43] LABS: APTT (PATIENT) 36.9 SEC (24.3-30.1); INTERNATIONAL NORMALIZED RATIO 1.9 RATIO; PROTHROMBIN TIME - PATIENT 21.4 SEC (9.8-11.6)
[2017-04-08] MEDS ORDERED: SODIUM CHLOR 0.9% 250 ML INJ 250 ML IV ONE ×4 (08:45→11:00)
[2017-04-08 08:59] LABS: ANION GAP 10 MEQ/L (5-15)
[2017-04-08] MEDS ORDERED: ONDANSETRON HCL 4 MG/2 ML VIAL IV PUSH ONE (09:00)
[2017-04-08 09:02] LABS: ALKALINE PHOSPHATASE 101 U/L (45-117); ALT (GPT) 33 U/L (12-78); AST (GOT) 59 U/L (15-37); BICARBONATE 31.8 MEQ/L (21.0-32.0); BLOOD UREA NITROGEN 27 MG/DL (7-18); CHLORIDE 100 MEQ/L (98-107); GLOMERULAR FILTRATION RATE 109 ML/MIN (>89); POTASSIUM 4.3 MEQ/L (3.5-5.1); SODIUM (NA) 142 MEQ/L (136-145); TOTAL BILIRUBIN ADULT 6.7 MG/DL (0.2-1.0)
[2017-04-08 09:33] LABS: BANDS 19 % (0-6); BASOPHILS 1 % (0-2); NEUTROPHIL # MANUAL DIFF 4.7 TH/MM3 (1.8-7.7); PLATELET ESTIMATE SMEAR LOW (NORMAL); PLATELET MORPHOLOGY NORMAL (NORMAL); POLYS (SEG NEUTROPHILS) 68 % (16-70); SCAN/DIFF FINAL DIFF MANUAL; WBC DIFF SAMPLE 100
[2017-04-08] MEDS ORDERED: POTASSIUM PHOSPHATE MONOBASIC 500 MG TAB PO PRN (10:00)
[2017-04-08] MEDS ORDERED: MAGNESIUM SULFATE INJ 2 GM in SODIUM CHLORIDE 0.9% INJ 96 ML IV PRN (10:00)
[2017-04-08] MEDS ORDERED: MISCELLANEOUS NURSING INFORMATION XX SCH (10:00)
[2017-04-08] MEDS ORDERED: MAGNESIUM OXIDE 400 MG TAB PO PRN (10:00)
[2017-04-08] MEDS ORDERED: CHLORHEXIDINE GLUCONATE 2 % 1 PACK (2 CLOTHS) TOP PRN (10:00)
[2017-04-08] MEDS ORDERED: DEXTROSE 50% IN WATER 50 ML VIAL(D50) IV PUSH PRN (10:00)
[2017-04-08] MEDS ORDERED: ONDANSETRON HCL 4 MG/2 ML VIAL IV PRN (10:00)
[2017-04-08] MEDS ORDERED: RESP: ALBUTEROL 2.5 MG/IPRATROPIUM 0.5 MG NEB (PRN) INH (10:00)
[2017-04-08] MEDS ORDERED: POTASSIUM CHLOR 40 MEQ PREMIX 100 ML IV PRN ×2 (10:00)
[2017-04-08] MEDS ORDERED: POTASSIUM PHOSPHATE MONOBASIC 500 MG TAB PO/TUBE PRN (10:00)
[2017-04-08] MEDS ORDERED: SODIUM PHOSPHATE INJ 30 MMOL in SODIUM CHLOR 0.9% 250 ML INJ 240 ML IV PRN (10:00)
[2017-04-08] MEDS ORDERED: MAGNESIUM SULFATE INJ 4 GM in SODIUM CHLORIDE 0.9% INJ 92 ML IV PRN (10:00)
[2017-04-08] MEDS ORDERED: POTASSIUM CHLOR 20 MEQ PREMIX 100 ML IV PRN ×2 (10:00)
--- NOTE | 2017-04-08 10:19 | PD.CONS ---
HPI History of Present Illness This is a 61 year old with known liver cirrhosis, who presented to the ER for evaluation of hematemesis. He is well known to our service. He was diagnosed with liver cirrhosis in March of 2016 and reports that he quit drinking at that time. He is established at the [facility] ([facility] and was last seen about a month ago, at which time he was evaluated with EGD (no band ligation) and lab work. He was told that his MELD score was a 22 at that time and that he would need to be alcohol free for 18 months before they would consider him for transplant. He is on Metoprolol at home. He reports that he had a salad for dinner yesterday. He didn't feel well afterwards and then started having hematemesis around 8pm. Initially, this was dark, almost coffee grounds like. However, he continued to have episodes about every hour and a half and it became more maroon blood/gelatinous and then after prolonged vomiting, brighter in color. He had associated generalized weakness and dizziness, but denies any abdominal pain or black tarry stools. He states that he was so dizzy, that he had sit on the ground because he felt as though he would pass out. He was brought to the ER and has continued to have hematemesis vomiting 300cc on arrival, 300cc at 0830, and another 100cc at 930. He was started on Protonix and Octreotide gtts. HH is 8.1/23.3. PT 21.4, INR 1.9. He is getting PRBC and FFP. (Natalia Anderson) PFSH Past Medical History Portal Gastropathy Recurrent GI Bleeding Chronic thrombocytopenia Russell's esophagus Alicia Dyson tear Hemothorax after a fall Kidney stones Past Surgical History Bone spur removed from right elbow Lithotripsy for nephrolithiasis Thoracentesis Paracentesis Chest tube placement Pleurx catheter placement Multiple EGD's (Natalia Anderson) Coded Allergies: No Known Allergies (Unverified , 01/08/17) Medications Allergies Coded Allergies Type Severity Reaction Last Updated Verified No Known Allergies 01/08/17 No Active Scripts Medications Dose Route/Sig Days Date Category Lopressor (Metoprolol Tartrate) 50 Mg Tab 25 Mg PO DAILY 01/28/17 Reported Protonix (Pantoprazole Sodium) 40 Mg Tab 40 Mg PO BID 01/11/17 Rx Family History Mother from breast cancer Father from CAD/RI Social History States he previously drank 6 beers per day per for 40 years but quit drinking in March 2016 Denies use of illicit drug (JustinNatalia Fernandezraffi FUNEZ) Review of Systems Constitutional: COMPLAINS OF: Diaphoretic episodes, Fatigue, Dizziness, DENIES : Weight loss, Change in appetite Respiratory: COMPLAINS OF: Shortness of breath, DENIES: Cough Cardiovascular: DENIES: Chest pain Gastrointestinal: COMPLAINS OF: Nausea, Vomiting, Hematemesis, DENIES: Abdominal pain, Black stools, Bloody stools, Constipation, Diarrhea Integumentary: DENIES: Abnormal pigmentation Hematologic/lymphatic: COMPLAINS OF: Bruising Neurologic: DENIES: Headache Psychiatric: DENIES: Confusion (AndersonJaredy Nicolette FUNEZ) GI Exam Vitals I&O Vital Signs Date Time Temp Pulse Resp B/P Pulse Ox O2 Delivery O2 Flow Rate FiO2 04/08/17 08:30 18 100 Nasal Cannula 2 04/08/17 08:30 104 18 146/67 99 Nasal Cannula 2 04/08/17 07:42 98.2 112 18 146/67 96 Room Air 04/08/17 07:42 18 I/O 04/07/17 04/07/17 04/07/17 04/08/17 04/08/17 04/08/17 07:00 15:00 23:00 07:00 15:00 23:00 Output Total 300 ml Balance -300 ml Output Emesis 300 ml Imaging Last Impressions Chest X-Ray 04/08/17 0000 Signed Impressions: Service Date/Time: Saturday, April 08, 2017 08:24 - CONCLUSION: 1. Right basilar pleural-parenchymal density likely combination of pleural effusion and atelectasis. 2. Left lung clear. Jerardo Alejandro MD Laboratory Test 04/08/17 04/08/17 04/08/17 07:56 08:45 08:49 White Blood Count 5.4 TH/MM3 Red Blood Count 2.23 MIL/MM3 Hemoglobin 8.1 GM/DL Hematocrit 23.3 % Mean Corpuscular Volume 104.2 FL Mean Corpuscular Hemoglobin 36.4 PG Mean Corpuscular Hemoglobin 35.0 % Concent Red Cell Distribution Width 14.5 % Platelet Count 52 TH/MM3 Mean Platelet Volume 9.4 FL Neutrophils (%) (Auto) 87.5 % Lymphocytes (%) (Auto) 6.3 % Monocytes (%) (Auto) 6.0 % Eosinophils (%) (Auto) 0.1 % Basophils (%) (Auto) 0.1 % Neutrophils # (Auto) 4.8 TH/MM3 Lymphocytes # (Auto) 0.3 TH/MM3 Monocytes # (Auto) 0.3 TH/MM3 Eosinophils # (Auto) 0.0 TH/MM3 Basophils # (Auto) 0.0 TH/MM3 CBC Comment AUTO DIFF Differential Total Cells 100 Counted Neutrophils % (Manual) 68 % Band Neutrophils % 19 % Lymphocytes % 7 % Monocytes % 5 % Basophils % 1 % Neutrophils # (Manual) 4.7 TH/MM3 Differential Comment FINAL DIFF MANUAL Platelet Estimate LOW Platelet Morphology Comment NORMAL Prothrombin Time 21.4 SEC Prothromb Time International 1.9 RATIO Ratio Activated Partial 36.9 SEC Thromboplast Time Sodium Level 142 MEQ/L Potassium Level 4.3 MEQ/L Chloride Level 100 MEQ/L Carbon Dioxide Level 31.8 MEQ/L Anion Gap 10 MEQ/L Blood Urea Nitrogen 27 MG/DL Creatinine 0.73 MG/DL Estimat Glomerular Filtration 109 ML/MIN Rate Random Glucose 167 MG/DL Calcium Level 8.5 MG/DL Total Bilirubin 6.7 MG/DL Aspartate Amino Transf 59 U/L (AST/SGOT) Alanine Aminotransferase 33 U/L (ALT/SGPT) Alkaline Phosphatase 101 U/L Total Protein 6.7 GM/DL Albumin 2.2 GM/DL Lipase 165 U/L Ethyl Alcohol Level 4 MG/DL Blood Type B POSITIVE Antibody Screen NEGATIVE Crossmatch Leukocyte-Reduced Red Blood Cells Blood Bank Comment Physical Examination HEENT: Normocephalic; atraumatic; no jaundice. CHEST: CTA CARDIAC: ST- 116 ABDOMEN: Soft, nondistended, nontender; hepatosplenomegaly; bowel sounds are present in all four quadrants. Hematemesis with dark red blood-100cc while I was in room EXTREMITIES: No clubbing, cyanosis, or edema. SKIN: Normal; no rash; no jaundice. SPECTACLE TRUER: No focal deficits; alert and oriented times three. (Natalia Anderson) Assessment and Plan Plan ASSESSMENT: - Upper GI Bleed, Hematemesis. Started with hematemesis, initially coffee grounds that progressed to gelatinous dark red/maroon, to brighter red. Had 300cc dark red hematemesis on admission and again at 0830 and another 100cc at 0930. He is NPO, on Protonix/Octreotide Gtt. - Anemia, acute blood loss. 8.1/23.3. Being transfused. - Coagulopathy, Thrombocytopenia. INR 1.9, Platelet 52. FFP ordered. - Liver cirrhosis. Established at [facility], [facility] . Seen one month ago and states he had EGD done at that time, MELD was 22 at that time. He was told that his MELD score was not high enough for transplant and that he would need to be ETOH free for 18 months prior to transplant. Current MELD Score ([place]) 18. T. Bili 6.7, AST 59, ALT 33, Alk Phosph 101. - GERD, Russell's Esophagus. Protonix. PLAN: - Plan for egd with possible band ligation today - Obtain consents - NPO - Protonix, Octreotide gtt - Agree with transfusion of PRBC, FFP - Monitor HH, Coag's - Transfuse as necessary - Further recommendations to follow based on results of above - Pt seen and examined by Dr. Bennett and myself and this note is written on her behalf (Natalia Anderson) Physician Comments seen, examined agree with above (Dai Bennett MD) Natalia Anderson April 08, 2017 10:19 Dai Bennett MD April 09, 2017 12:30
--- NOTE | 2017-04-08 10:48 | HHI.HP ---
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 He has a strong history of portal hypertension and portal gastropathy causing upper GI bleeding. He has been admitted twice since November for this and has been seen every month since then. He presents today with a 1 day history of hematemesis of bright red blood and light-headedness and fatigue. He denied BRBPR or dark tarry stools. has not been able to tolerate food or liquids x 24h. presents to the ER where he continued to vomit ~500cc bright red blood. Hgb stable at 8.1. tachycardic but not hypotensive. Of note, he was seen at the [facility] for pre-transplant work-up and he reports that he must be abstinent of etoh for at least 18 months prior to being listed. He has been abstinent for at least 7 months so far. Otherwise, he denies chest pain, sob, fever, chills. Review of Systems Constitutional: COMPLAINS OF: Fatigue, Dizziness, DENIES: Fever, Chills Cardiovascular: DENIES: Chest pain, Syncope, Dyspnea on Exertion Gastrointestinal: COMPLAINS OF: Nausea, Vomiting, DENIES: Abdominal pain, Black stools, Bloody stools, Constipation, Diarrhea Past Family Social History Allergies: Coded Allergies: No Known Allergies (Unverified , 01/08/17) Past Medical History Thrombocytopenia Cirrhosis (baseline MELD ~21) Fatty Liver Disease End-stage liver disease Hypertension h/o esophageal varices Portal gastropathy Portal Hypertension Kidney Stones Past Surgical History prior right-sided chest tube for pleural effusion 08/2016 right elbow bone spur removal multiple prior EGD Reported Medications Protonix (Pantoprazole Sodium) 40 Mg Tab 40 Mg PO BID Lopressor (Metoprolol Tartrate) 50 Mg Tab 25 Mg PO DAILY Active Ordered Medications See MAR Family History reviewed with the patient and found to be noncontributory to his acute illness Social History no etoh, tob, doa. Physical Exam Vital Signs Vital Signs Date Time Temp Pulse Resp B/P Pulse Ox O2 Delivery O2 Flow Rate FiO2 5/13/17 10:36 112 18 109/70 100 Nasal Cannula 2 04/08/17 10:11 98.5 108 18 100/54 99 Nasal Cannula 2 04/08/17 08:30 18 100 Nasal Cannula 2 04/08/17 08:30 104 18 146/67 99 Nasal Cannula 2 04/08/17 07:42 98.2 112 18 146/67 96 Room Air 04/08/17 07:42 18 Physical Exam gen: middle-aged male, lying in bed, moderate distress due to nausea and active hematemesis. he is actively vomiting bright red blood on my exam. heent: + scleral icterus. mucous membranes dry neck: flat neck veins. trachea midline. chest: equal chest rise cv: tachycardic rate, regular rhythm. sinus by telemetry abd: soft, nontender, nondistended. no guarding. extr: no peripheral edema. jaundiced. distal pulses 2+ neuro: RASS 0. CAM -. follows commands x 4. Laboratory Laboratory Tests Test 04/08/17 04/08/17 04/08/17 07:56 08:45 08:49 White Blood Count 5.4 Red Blood Count 2.23 Hemoglobin 8.1 Hematocrit 23.3 Mean Corpuscular Volume 104.2 Mean Corpuscular Hemoglobin 36.4 Mean Corpuscular Hemoglobin 35.0 Concent Red Cell Distribution Width 14.5 Platelet Count 52 Mean Platelet Volume 9.4 Neutrophils (%) (Auto) 87.5 Lymphocytes (%) (Auto) 6.3 Monocytes (%) (Auto) 6.0 Eosinophils (%) (Auto) 0.1 Basophils (%) (Auto) 0.1 Neutrophils # (Auto) 4.8 Lymphocytes # (Auto) 0.3 Monocytes # (Auto) 0.3 Eosinophils # (Auto) 0.0 Basophils # (Auto) 0.0 CBC Comment AUTO DIFF Differential Total Cells 100 Counted Neutrophils % (Manual) 68 Band Neutrophils % 19 Lymphocytes % 7 Monocytes % 5 Basophils % 1 Neutrophils # (Manual) 4.7 Differential Comment FINAL DIFF MANUAL Platelet Estimate LOW Platelet Morphology Comment NORMAL Prothrombin Time 21.4 Prothromb Time International 1.9 Ratio Activated Partial 36.9 Thromboplast Time Sodium Level 142 Potassium Level 4.3 Chloride Level 100 Carbon Dioxide Level 31.8 Anion Gap 10 Blood Urea Nitrogen 27 Creatinine 0.73 Estimat Glomerular Filtration 109 Rate Random Glucose 167 Calcium Level 8.5 Total Bilirubin 6.7 Aspartate Amino Transf 59 (AST/SGOT) Alanine Aminotransferase 33 (ALT/SGPT) Alkaline Phosphatase 101 Total Protein 6.7 Albumin 2.2 Lipase 165 Ethyl Alcohol Level 4 Blood Type B POSITIVE Antibody Screen NEGATIVE Crossmatch Leukocyte-Reduced Red Blood Cells Blood Bank Comment Result Diagram: 04/08/17 0756 04/08/17 0756 Imaging Last Impressions Chest X-Ray 04/08/17 0000 Signed Impressions: Service Date/Time: Saturday, April 08, 2017 08:24 - CONCLUSION: 1. Right basilar pleural-parenchymal density likely combination of pleural effusion and atelectasis. 2. Left lung clear. Jerardo Alejandro MD Assessment and Plan Assessment and Plan Assessment: 61yM with ESLD, MELD 21 today, coagulopathy, thrombocytopenia, and history of portal gastropathy who presents with recurrent active upper GI bleeding. He is at least in Class 2 hemorrhagic shock with tachycardia and is actively vomiting blood. We will admit him to the ICU and actively begin balanced blood product transfusion and resuscitation. He has multiple IV access at this point. serial H&H, ppi, octreotide, and SBP prophylaxis. He remains critically ill at this point and high risk for from this bleed. GI is consulted and following along. 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 -- serial H&H -- PPI drip -- octreotide drip -- rocephin 1gm iv q24h x 5 days for SBP prophylaxis -- large bore piv access -- EGD by GI. -- NPO -- SCDs. no pharmacologic DVT prophylaxis given active GI bleeding. Critical care time: 62 minutes, exclusive of separately billable procedures. Todd Gonzalez MD April 08, 2017 10:48
[2017-04-08] MEDS: INSULIN NovoLIN REGULAR SUPPLEMENTAL SCALE SQ SCH ×2 (12:00→18:00)
[2017-04-08] MEDS ORDERED: PHENYLEPH/NS 1000 MCG/10 ML SYR IV ONE (12:00)
[2017-04-08] MEDS ORDERED: ESMOLOL HCL 100 MG/10 ML VIAL IV ONE (12:00)
[2017-04-08] MEDS ORDERED: PROPOFOL 200 MG/20 ML AMP IV ONE (12:28)
--- NOTE | 2017-04-08 12:55 | GIPROC ---
[facility] [address] [facility]. 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 TOPICAL ANESTHETIC: none CONSENT: The patient understands the risks and benefits of the procedure and understands that these risks include, but are not limited to: sedation, allergic reaction, infection, perforation and/or bleeding. Alternative means of evaluation and treatment include, among others: physical exam, x-rays, and/or surgical intervention. The patient elects to proceed with this endoscopic procedure. medical equipment was checked for proper function. Hand hygiene and appropriate measures for infection prevention was taken. After the risks, benefits and alternatives of the procedure were thoroughly explained, Informed consent was verified, confirmed and timeout was successfully executed by the treatment team. The patient was anesthetized with topical anesthesia and the Pentax EG-[id number] endoscope was introduced through the mouth and advanced to the second portion of the duodenum. Retroflexed views revealed a hiatal hernia The gastroscope was then slowly withdrawn and removed. Portal gastropathy, large amount of blood suctioned, agressive washing done -most likely source of bleeidng no active bleeding seen Russell's esophagus , esophageal varice s grade 1 no active bleeding. ADVERSE EVENTS: There were no complications. IMPRESSIONS: 1. Portal gastropathy, large amount of blood suctioned, agressive washing done -most likely source of bleeidng no active bleeding seen Russell's esophagus , esophageal varice s grade 1 no active bleeding 2. Retroflexed views revealed a hiatal hernia RECOMMENDATIONS: 1. Await biopsy results. Biopsy results will not be ready for 7-10 days. If you don't hear from us in two weeks, call our office for biopsy results. 2. Anti-reflux regimen 3. Continue PPI 4. Ice chips iv antibiotics octreotide drip PATIENT CONDITION: stable DISPOSITION: Inpatient REPEAT EXAM: Return 6 weeks EGD Dai Bennett MD eSigned: Dai Bennett MD 04/08/2017 12:55 PM cc: PATIENT NAME: Kvng Ndiaye MR#: [id number]
[2017-04-08] MEDS ORDERED: DO NOT ADM ANY ANTICOAGULANT DRUGS PRN (13:01)
--- NOTE | 2017-04-08 13:47 | EKG ---
Date Performed: 04/08/2017 Time Performed: 07:42:33 PTAGE: 61 years EKG: SINUS TACHYCARDIA POSSIBLE LEFT ATRIAL ENLARGEMENT INDETERMINATE AXIS RIGHT BUNDLE BRANCH B LOCK Since previous tracing, no significant change noted ABNORMAL ECG PREVIOUS TRACING : 01/08/2017 22.56 DOCTOR: Magnolia Schuler Interpretating Date/Time 04/08/2017 13:47:16
[2017-04-08 15:59] LABS: REVIEW FLAG FINAL
[2017-04-08 16:00] LABS: HEMATOCRIT 18.2 % (39.0-51.0)
[2017-04-08 17:47] LABS: APTT (PATIENT) 36.1 SEC (24.3-30.1); INTERNATIONAL NORMALIZED RATIO 1.8 RATIO; PROTHROMBIN TIME - PATIENT 19.9 SEC (9.8-11.6)
[2017-04-08] MEDS: SODIUM CHLOR 0.9% 1000 ML INJ 1,000 ML IV SCH (21:51)
[2017-04-08 23:46] LABS: HEMATOCRIT 24.4 % (39.0-51.0)
[2017-04-08 23:58] LABS: REVIEW FLAG FINAL
[2017-04-09] VITALS (26 sets, daily range): BP systolic 112–151; BP diastolic 58–70; PULSE 66–84; RESP 12–28; TEMP 98.1–98.4; O2SAT 92–99
[2017-04-09] MEDS: OCTREOTIDE INJ 500 MCG in SODIUM CHLORID 0.9% 500 ML INJ 500 ML IV SCH ×3 (02:40→21:41)
[2017-04-09] MEDS: PANTOPRAZOLE INJ 80 MG in SODIUM CHLORIDE 0.9% INJ 100 ML IV SCH ×3 (02:40→21:41)
[2017-04-09] MEDS: CHLORHEXIDINE GLUCONATE 2 % 1 PACK (2 CLOTHS) TOP SCH (02:41)
[2017-04-09 04:57] LABS: MEAN CELL VOLUME 88.9 FL (80.0-100.0); MEAN CORPUSCULAR HEMOGLOBIN 30.9 PG (27.0-34.0); MEAN CORPUSCULAR HGB CONC 34.8 % (32.0-36.0); PLATELET COUNT 35 TH/MM3 (150-450); RED BLOOD COUNT 2.58 MIL/MM3 (4.50-5.90); RED CELL DISTRIBUTION WIDTH 20.9 % (11.6-17.2); WHITE BLOOD COUNT 2.9 TH/MM3 (4.0-11.0)
[2017-04-09 05:06] LABS: REVIEW FLAG FINAL
[2017-04-09 05:10] LABS: APTT (PATIENT) 61.1 SEC (24.3-30.1); INTERNATIONAL NORMALIZED RATIO 1.6 RATIO; PROTHROMBIN TIME - PATIENT 18.5 SEC (9.8-11.6)
[2017-04-09 05:15] LABS: INDIRECT BILIRUBIN 5.1 MG/DL (0.0-0.8); POTASSIUM 3.7 MEQ/L (3.5-5.1)
[2017-04-09 05:18] LABS: TOTAL BILIRUBIN ADULT 7.4 MG/DL (0.2-1.0)
[2017-04-09] MEDS: INSULIN NovoLIN REGULAR SUPPLEMENTAL SCALE SQ SCH ×5 (06:00→23:59)
[2017-04-09] MEDS ORDERED: SODIUM CHLOR 0.9% 250 ML INJ 250 ML IV ONE (07:45)
--- NOTE | 2017-04-09 09:54 | HHI.CCPN ---
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 He has a strong history of portal hypertension and portal gastropathy causing upper GI bleeding. He has been admitted twice since November for this and has been seen every month since then. He presents today with a 1 day history of hematemesis of bright red blood and light-headedness and fatigue. He denied BRBPR or dark tarry stools. has not been able to tolerate food or liquids x 24h. presents to the ER where he continued to vomit ~500cc bright red blood. Hgb stable at 8.1. tachycardic but not hypotensive. Of note, he was seen at the [facility] for pre-transplant work-up and he reports that he must be abstinent of etoh for at least 18 months prior to being listed. He has been abstinent for at least 7 months so far. Otherwise, he denies chest pain, sob, fever, chills. Subjective: 04/09: feels much better today. MELD 19 from 21. Bili slightly elevated, likely secondary to acute hemorrhage yesterday. EGD yesterday with gastropathy, no varices. Objective Vital Signs Date Time Temp Pulse Resp B/P Pulse Ox O2 Delivery O2 Flow Rate FiO2 04/09/17 07:00 79 15 117/67 95 04/09/17 04:00 98.1 04/08/17 20:16 Nasal Cannula 2.00 Intake and Output 04/08/17 04/08/17 04/09/17 08:00 16:00 00:00 Intake Total 1410 ml 689 ml Output Total 300 ml 400 ml Balance 1110 ml 289 ml Result Diagram: 04/09/17 0350 04/09/17 0350 Imaging Last Impressions Chest X-Ray 04/08/17 0000 Signed Impressions: Service Date/Time: Saturday, April 08, 2017 08:24 - CONCLUSION: 1. Right basilar pleural-parenchymal density likely combination of pleural effusion and atelectasis. 2. Left lung clear. Jerardo Alejandro MD Objective Remarks gen: middle-aged male, lying in bed, no acute distress this morning. heent: + scleral icterus. mucous membranes moist neck: flat neck veins. trachea midline. chest: equal chest rise cv: normal rate, regular rhythm. sinus by telemetry abd: soft, nontender, nondistended. no guarding. extr: no peripheral edema. jaundiced. distal pulses 2+ neuro: RASS 0. CAM -. follows commands x 4. A/P Assessment and Plan Assessment: 61yM with ESLD, coagulopathy, thrombocytopenia, and history of portal gastropathy who presents with recurrent active upper GI bleeding. Clinically improved from shock, but remains coagulopathic and high risk for recurrent and ongoing bleeding. Continue serial H&H, ppi, octreotide, and SBP prophylaxis. give an additional unit platelets today. GI is consulted and following along. Active Upper GI Bleed - serial H&H - goal hgb > 7, INR < 2, plt > 50k - large bore piv access. Portal Gastropathy - could consider TIPS in the future when he is improved. - ongoing management per GI, would likely require repeat EGD at some point. - continue ppi drip - would d/c octreotide, will discuss with GI - continue SBP prophylaxis, Ceftriaxone 1gm iv q24h x 5 days. - continue NPO for now. 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 daily cbc. - goal plt > 50k -- SCDs. no pharmacologic DVT prophylaxis given active GI bleeding. Dispo: remain in the ICU this morning. if his hgb remains stable, will discuss with GI possibility of transfer out of ICU. Todd Gonzalez MD April 09, 2017 09:54
[2017-04-09] MEDS: cefTRIAXone INJ 1,000 MG in SODIUM CHLORIDE 0.9% INJ 100 ML IV SCH ×2 (10:00→11:09)
[2017-04-09 10:43] LABS: HEMATOCRIT 24.1 % (39.0-51.0)
[2017-04-09 10:46] LABS: REVIEW FLAG FINAL
[2017-04-09] MEDS: SODIUM CHLOR 0.9% 1000 ML INJ 1,000 ML IV SCH ×2 (11:10→21:27)
--- NOTE | 2017-04-09 12:34 | HHI.GIFU ---
GI Follow-up Note Consult Follow-up Subjective: Patient laying in bed comfortably, no further bleeding, EGD done yesterday showed blood in stomach, agressive washing done, no specific site of bleeding, was felt he had diffuse bleeding from portal gastropathy Objective: PHYSICAL EXAMINATION: Vitals signs stable No fever Vital Signs Date Time Temp Pulse Resp B/P Pulse Ox O2 Delivery O2 Flow Rate FiO2 04/09/17 10:00 82 04/09/17 08:55 98.4 74 15 141/65 97 04/09/17 08:00 74 04/09/17 07:00 79 15 117/67 95 04/09/17 06:00 66 04/09/17 06:00 76 12 130/61 96 04/09/17 05:00 81 13 120/58 97 HEENT: Pupils round and reactive to light; normocephalic; atraumatic; jaundice. Throat is clear. NECK: Neck is supple, no JVD, no lymphadenopathy. CHEST: Chest is clear to auscultation and percussion. CARDIAC: Regular rate and rhythm with no murmur gallop or rubs. ABDOMEN: Soft, nondistended, nontender; no hepatosplenomegaly; bowel sounds are present in all four quadrants. EXTREMITIES: No clubbing, cyanosis, or edema. SKIN: Normal; no rash; no jaundice. HARBOR TUG CAPTAIN: No focal deficits; alert and oriented times three. Available Data (labs, X- Rays, Procedues) : Laboratory Tests Test 04/08/17 04/08/17 04/08/17 04/08/17 07:56 08:45 08:49 10:48 White Blood Count 5.4 TH/MM3 Red Blood Count 2.23 MIL/MM3 Hemoglobin 8.1 GM/DL Hematocrit 23.3 % Mean Corpuscular Volume 104.2 FL Mean Corpuscular Hemoglobin 36.4 PG Mean Corpuscular Hemoglobin 35.0 % Concent Red Cell Distribution Width 14.5 % Platelet Count 52 TH/MM3 Mean Platelet Volume 9.4 FL Neutrophils (%) (Auto) 87.5 % Lymphocytes (%) (Auto) 6.3 % Monocytes (%) (Auto) 6.0 % Eosinophils (%) (Auto) 0.1 % Basophils (%) (Auto) 0.1 % Neutrophils # (Auto) 4.8 TH/MM3 Lymphocytes # (Auto) 0.3 TH/MM3 Monocytes # (Auto) 0.3 TH/MM3 Eosinophils # (Auto) 0.0 TH/MM3 Basophils # (Auto) 0.0 TH/MM3 CBC Comment AUTO DIFF Differential Total Cells 100 Counted Neutrophils % (Manual) 68 % Band Neutrophils % 19 % Lymphocytes % 7 % Monocytes % 5 % Basophils % 1 % Neutrophils # (Manual) 4.7 TH/MM3 Differential Comment FINAL DIFF MANUAL Platelet Estimate LOW Platelet Morphology Comment NORMAL Prothrombin Time 21.4 SEC Prothromb Time International 1.9 RATIO Ratio Activated Partial 36.9 SEC Thromboplast Time Sodium Level 142 MEQ/L Potassium Level 4.3 MEQ/L Chloride Level 100 MEQ/L Carbon Dioxide Level 31.8 MEQ/L Anion Gap 10 MEQ/L Blood Urea Nitrogen 27 MG/DL Creatinine 0.73 MG/DL Estimat Glomerular Filtration 109 ML/MIN Rate Random Glucose 167 MG/DL Calcium Level 8.5 MG/DL Total Bilirubin 6.7 MG/DL Aspartate Amino Transf 59 U/L (AST/SGOT) Alanine Aminotransferase 33 U/L (ALT/SGPT) Alkaline Phosphatase 101 U/L Total Protein 6.7 GM/DL Albumin 2.2 GM/DL Lipase 165 U/L Ethyl Alcohol Level 4 MG/DL Blood Type B POSITIVE Antibody Screen NEGATIVE Crossmatch Leukocyte-Reduced Red Blood Cells Blood Bank Comment Test 04/08/17 04/08/17 04/08/17 04/08/17 11:00 15:31 17:00 23:05 Nasal Screen MRSA (PCR) MRSA NOT DETECTED Hemoglobin 6.3 GM/DL 8.5 GM/DL Hematocrit 18.2 % 24.4 % Prothrombin Time 19.9 SEC Prothromb Time International 1.8 RATIO Ratio Activated Partial 36.1 SEC Thromboplast Time Test 04/09/17 04/09/17 04/09/17 03:50 08:02 09:10 White Blood Count 2.9 TH/MM3 Red Blood Count 2.58 MIL/MM3 Hemoglobin 8.0 GM/DL 8.5 GM/DL Hematocrit 23.0 % 24.1 % Mean Corpuscular Volume 88.9 FL Mean Corpuscular Hemoglobin 30.9 PG Mean Corpuscular Hemoglobin 34.8 % Concent Red Cell Distribution Width 20.9 % Platelet Count 35 TH/MM3 Mean Platelet Volume 8.3 FL Prothrombin Time 18.5 SEC Prothromb Time International 1.6 RATIO Ratio Activated Partial 61.1 SEC Thromboplast Time Sodium Level 144 MEQ/L Potassium Level 3.7 MEQ/L Chloride Level 105 MEQ/L Carbon Dioxide Level 33.0 MEQ/L Anion Gap 6 MEQ/L Blood Urea Nitrogen 29 MG/DL Creatinine 0.61 MG/DL Estimat Glomerular Filtration 134 ML/MIN Rate Random Glucose 109 MG/DL Calcium Level 7.5 MG/DL Total Bilirubin 7.4 MG/DL Direct Bilirubin 2.3 MG/DL Indirect Bilirubin 5.1 MG/DL Aspartate Amino Transf 46 U/L (AST/SGOT) Alanine Aminotransferase 27 U/L (ALT/SGPT) Alkaline Phosphatase 72 U/L Total Protein 5.7 GM/DL Albumin 2.1 GM/DL Blood Bank Comment ASSESSMENT/PLAN: liver cirrhosis-being evaluated at [facility] for liver transplant-patient will contact his coordinator in am gi bleeding secondary portal gastropathy-no further bleeding coagulopathy secondary liver cirrhosis elevated lfts secondary the above Recommendations advance diet supportive cre if stable may dc home in am fu with [place] [facility] It was a pleasure seeing Kvng Ndiaye. Thank you for this consult. Entered by: Dai Art MD April 09, 2017 12:34
[2017-04-09 14:25] LABS: HEMATOCRIT 22.8 % (39.0-51.0)
[2017-04-09 14:28] LABS: REVIEW FLAG FINAL
[2017-04-09 20:23] LABS: HEMATOCRIT 23.2 % (39.0-51.0)
[2017-04-09 20:27] LABS: REVIEW FLAG FINAL
[2017-04-10 00:07] VITALS: BP 130/69; PULSE 75; RESP 19; TEMP 96.7; O2SAT 94
[2017-04-10 02:34] LABS: HEMATOCRIT 22.7 % (39.0-51.0); MEAN CELL VOLUME 90.6 FL (80.0-100.0); MEAN CORPUSCULAR HGB CONC 35.3 % (32.0-36.0); PLATELET COUNT 43 TH/MM3 (150-450); RED BLOOD COUNT 2.51 MIL/MM3 (4.50-5.90); RED CELL DISTRIBUTION WIDTH 21.2 % (11.6-17.2); WHITE BLOOD COUNT 2.2 TH/MM3 (4.0-11.0)
[2017-04-10 02:35] LABS: REVIEW FLAG FINAL
[2017-04-10 02:47] LABS: APTT (PATIENT) 35.8 SEC (24.3-30.1); INTERNATIONAL NORMALIZED RATIO 1.8 RATIO; PROTHROMBIN TIME - PATIENT 20.4 SEC (9.8-11.6)
[2017-04-10 02:49] LABS: BICARBONATE 29.6 MEQ/L (21.0-32.0); POTASSIUM 3.6 MEQ/L (3.5-5.1)
[2017-04-10 02:52] LABS: INDIRECT BILIRUBIN 3.4 MG/DL (0.0-0.8); TOTAL BILIRUBIN ADULT 5.6 MG/DL (0.2-1.0)
[2017-04-10 04:00] VITALS: BP 125/64; PULSE 81; RESP 19; TEMP 98.1; O2SAT 92
[2017-04-10] MEDS: CHLORHEXIDINE GLUCONATE 2 % 1 PACK (2 CLOTHS) TOP SCH (04:00)
[2017-04-10] MEDS: INSULIN NovoLIN REGULAR SUPPLEMENTAL SCALE SQ SCH (06:00)
[2017-04-10 08:00] VITALS: BP 143/67; PULSE 84; RESP 17; TEMP 96.9; O2SAT 95
[2017-04-10] MEDS ORDERED: NADO20TA PO (08:48)
[2017-04-10] MEDS ORDERED: PROT40TA PO (08:48)
[2017-04-10] MEDS ORDERED: CIPR-9 PO (08:48)
--- NOTE | 2017-04-10 09:04 | HHI.DS ---
Discharge Summary Admission Date April 08, 2017 at 9:57 am Discharge Date: April 10, 2017 Admitting Diagnosis Upper GI bleed (1) Upper GI bleed ICD Code: K92.2 Diagnosis: Principal (2) Cirrhosis ICD Code: K74.60 Diagnosis: Principal Procedures EGD 04/08/2017 IMPRESSIONS: 1. Portal gastropathy, large amount of blood suctioned, agressive washing done -most likely source of bleeidng no active bleeding seen Russell's esophagus , esophageal varice s grade 1 no active bleeding 2. 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 He has a strong history of portal hypertension and portal gastropathy causing upper GI bleeding. He has been admitted twice since November for this and has been seen every month since then. He presents today with a 1 day history of hematemesis of bright red blood and light-headedness and fatigue. He denied BRBPR or dark tarry stools. has not been able to tolerate food or liquids x 24h. presents to the ER where he continued to vomit ~500cc bright red blood. Hgb stable at 8.1. tachycardic but not hypotensive. Of note, he was seen at the [facility] for pre-transplant work-up and he reports that he must be abstinent of etoh for at least 18 months prior to being listed. He has been abstinent for at least 7 months so far. Otherwise, he denies chest pain, sob, fever, chills. CBC/BMP: 04/10/17 0217 04/10/17 0217 Significant Findings Laboratory Tests Test 04/08/17 04/08/17 04/08/17 04/08/17 07:56 15:31 17:00 23:05 Red Blood Count 2.23 MIL/MM3 (4.50-5.90) Hemoglobin 8.1 GM/DL 6.3 GM/DL 8.5 GM/DL (13.0-17.0) (13.0-17.0) (13.0-17.0) Hematocrit 23.3 % 18.2 % 24.4 % (39.0-51.0) (39.0-51.0) (39.0-51.0) Mean Corpuscular Volume 104.2 FL (80.0-100.0) Mean Corpuscular Hemoglobin 36.4 PG (27.0-34.0) Platelet Count 52 TH/MM3 (150-450) Neutrophils (%) (Auto) 87.5 % (16.0-70.0) Lymphocytes (%) (Auto) 6.3 % (9.0-44.0) Lymphocytes # (Auto) 0.3 TH/MM3 (1.0-4.8) Band Neutrophils % 19 % (0-6) Lymphocytes % 7 % (9-44) Platelet Estimate LOW (NORMAL) Prothrombin Time 21.4 SEC 19.9 SEC (9.8-11.6) (9.8-11.6) Activated Partial 36.9 SEC 36.1 SEC Thromboplast Time (24.3-30.1) (24.3-30.1) Blood Urea Nitrogen 27 MG/DL (7-18) Random Glucose 167 MG/DL (74-106) Total Bilirubin 6.7 MG/DL (0.2-1.0) Aspartate Amino Transf 59 U/L (15-37) (AST/SGOT) Albumin 2.2 GM/DL (3.4-5.0) Test 04/09/17 04/09/17 04/09/17 04/09/17 03:50 09:10 13:56 19:58 White Blood Count 2.9 TH/MM3 (4.0-11.0) Red Blood Count 2.58 MIL/MM3 (4.50-5.90) Hemoglobin 8.0 GM/DL 8.5 GM/DL 8.0 GM/DL 7.9 GM/DL (13.0-17.0) (13.0-17.0) (13.0-17.0) (13.0-17.0) Hematocrit 23.0 % 24.1 % 22.8 % 23.2 % (39.0-51.0) (39.0-51.0) (39.0-51.0) (39.0-51.0) Red Cell Distribution Width 20.9 % (11.6-17.2) Platelet Count 35 TH/MM3 (150-450) Prothrombin Time 18.5 SEC (9.8-11.6) Activated Partial 61.1 SEC Thromboplast Time (24.3-30.1) Carbon Dioxide Level 33.0 MEQ/L (21.0-32.0) Blood Urea Nitrogen 29 MG/DL (7-18) Random Glucose 109 MG/DL (74-106) Calcium Level 7.5 MG/DL (8.5-10.1) Total Bilirubin 7.4 MG/DL (0.2-1.0) Direct Bilirubin 2.3 MG/DL (0.0-0.2) Indirect Bilirubin 5.1 MG/DL (0.0-0.8) Aspartate Amino Transf 46 U/L (15-37) (AST/SGOT) Total Protein 5.7 GM/DL (6.4-8.2) Albumin 2.1 GM/DL (3.4-5.0) Test 04/10/17 02:17 White Blood Count 2.2 TH/MM3 (4.0-11.0) Red Blood Count 2.51 MIL/MM3 (4.50-5.90) Hemoglobin 8.0 GM/DL (13.0-17.0) Hematocrit 22.7 % (39.0-51.0) Red Cell Distribution Width 21.2 % (11.6-17.2) Platelet Count 43 TH/MM3 (150-450) Prothrombin Time 20.4 SEC (9.8-11.6) Activated Partial 35.8 SEC Thromboplast Time (24.3-30.1) Chloride Level 110 MEQ/L (98-107) Blood Urea Nitrogen 20 MG/DL (7-18) Creatinine 0.56 MG/DL (0.60-1.30) Calcium Level 7.8 MG/DL (8.5-10.1) Total Bilirubin 5.6 MG/DL (0.2-1.0) Direct Bilirubin 2.2 MG/DL (0.0-0.2) Indirect Bilirubin 3.4 MG/DL (0.0-0.8) Aspartate Amino Transf 47 U/L (15-37) (AST/SGOT) Total Protein 5.8 GM/DL (6.4-8.2) Albumin 2.2 GM/DL (3.4-5.0) Imaging Last Impressions Chest X-Ray 04/08/17 0000 Signed Impressions: Service Date/Time: Saturday, April 08, 2017 08:24 - CONCLUSION: 1. Right basilar pleural-parenchymal density likely combination of pleural effusion and atelectasis. 2. Left lung clear. Jerardo Alejandro MD PE at Discharge GENERAL: Alert, Oriented x 3, NAD. SKIN: Warm and dry. HEAD: Normocephalic. EYES: No scleral icterus. No injection or drainage. NECK: Supple, trachea midline. No JVD or lymphadenopathy. CARDIOVASCULAR: Regular rate and rhythm without murmurs, gallops, or rubs. RESPIRATORY: Breath sounds equal bilaterally. No accessory muscle use. GASTROINTESTINAL: Abdomen firm, non-tender, distended. BS+ MUSCULOSKELETAL: No cyanosis, or edema. BACK: Nontender without obvious deformity. No CVA tenderness. Pt update on day of discharge Patient is doing well. No acute concerns. Denies any further bleed. Will follow up with GI as well as [facility]. Hospital Course Mr. Ndiaye is a pleasant 61 year old male with a history of alcohol liver disease who presented to the ED on 04/08/2017 due to upper GI bleed. His initial Hgb was 6.3. He was initially admitted to the ICU where he received blood transfusion as well as FFP and platelet transfusion. He underwent EGD on the same day. Patient was maintained on octreotide, IV ceftriaxone and PPI drip. He was closely followed by GI. Patient's hemoglobin remained stable. Patient takes metoprolol at home. However, non-selective beta fouzia would be preferable. We will switch to Nadolol initially 20mg Qday due to patient's BP. If tolerated, Nadolol would ideally should be increased to 40mg Qday. Patient is also advised to continue taking Protonix BID. We will also continue Cipro 500mg BID x 7 days. Patient is advised to follow up with PCP and GI as well as [facility]. Pt Condition on Discharge: Good Discharge Disposition: Discharge Home Discharge Time: > 30 minutes Discharge Instructions DIET: Follow Instructions for: Heart Healthy Diet Activities you can perform: Regular-No Restrictions Follow up Referrals: Gastroenterology - 3 Weeks with Rome Marie MD PCP Follow-up - 1 Week New Medications: Ciprofloxacin (Cipro) 500 Mg Tab 500 MG PO BID Infection #14 Ref 0 TAB Nadolol (Nadolol) 20 Mg Tab 20 MG PO DAILY Variceal bleed #30 Ref 3 TAB Continued Medications: Pantoprazole (Protonix) 40 Mg Tab 40 MG PO BID Ulcer Prevention #60 Ref 0 TAB (This prescription has been renewed) Discontinued Medications: Metoprolol Tartrate (Lopressor) 50 Mg Tab 25 MG PO DAILY #15 Ref 0 TAB Debbie Newman DO April 10, 2017 09:04
[2017-04-10] MEDS: SODIUM CHLOR 0.9% 1000 ML INJ 1,000 ML IV SCH (09:36)
[2017-04-10] MEDS: PANTOPRAZOLE INJ 80 MG in SODIUM CHLORIDE 0.9% INJ 100 ML IV SCH (09:41)
[2017-04-10] MEDS: cefTRIAXone INJ 1,000 MG in SODIUM CHLORIDE 0.9% INJ 100 ML IV SCH (09:45)
[2017-04-10] MEDS: OCTREOTIDE INJ 500 MCG in SODIUM CHLORID 0.9% 500 ML INJ 500 ML IV SCH (09:46)
== END 2017-04-10 11:06 | disposition home or self-care (01) | DRG 377 ==
LOC: NEPE 07:33 → NEDA 09:57 → HIMW 10:50 → N07B 04-09 22:34
PROVIDERS: ADMIT Hospitalist; ATTEND Hospitalist
PROC: 30233N1 Transfusion of Nonautologous Red Blood Cells into Peripheral Vein, Percutaneous Approach (ICD-10-PCS; 2017-04-08)
PROC: 6A550Z2 Pheresis of Platelets, Single (ICD-10-PCS; 2017-04-08)
PROC: 0DJ08ZZ Inspection of Upper Intestinal Tract, Via Natural or Artificial Opening Endoscopic (ICD-10-PCS; 2017-04-08)
PROC: 30233K1 Transfusion of Nonautologous Frozen Plasma into Peripheral Vein, Percutaneous Approach (ICD-10-PCS; principal; 2017-04-08 12:15)
DX: K92.0 Hematemesis (principal); R57.8 Other shock; J90 Pleural effusion, not elsewhere classified; D68.9 Coagulation defect, unspecified; K76.6 Portal hypertension; D69.59 Other secondary thrombocytopenia; K74.60 Unspecified cirrhosis of liver; K22.70 Barrett's esophagus without dysplasia; J98.11 Atelectasis; D62 Acute posthemorrhagic anemia; I85.10 Secondary esophageal varices without bleeding; K31.89 Other diseases of stomach and duodenum; I10 Essential (primary) hypertension; K76.0 Fatty (change of) liver, not elsewhere classified; K72.90 Hepatic failure, unspecified without coma; K21.9 Gastro-esophageal reflux disease without esophagitis; Z87.19 Personal history of other diseases of the digestive system; K44.9 Diaphragmatic hernia without obstruction or gangrene; Z87.442 Personal history of urinary calculi
CPT/HCPCS: 36430; 71010; 80048; 80053; 80076; 80307; 82948; 83690; 85007; 85014; 85018; 85027; 85610; 85730; 86850; 86900; 86901; 86920; 86927; 87641; 93005; 94150; 94667; 94668; 96365; 96374; 96375; 99292; C9113; J0696; J2354; J2370; J2405; J7030; J7040; J7050; P9016; P9017; P9035

== ENCOUNTER 2017-05-23 15:17 | Inpatient (IN) | payer BC ==
[2017-05-23] VITALS (10 sets, daily range): BP systolic 90–120; BP diastolic 44–59; PULSE 59–77; RESP 15–22; TEMP 96.3–98.2; O2SAT 95–99
[~2017-05-23] VITALS: Ht 172.7 cm; Wt 67.3 kg
[~2017-05-23 15:17] MED LIST changes: +CIPR-9 PO; -METO-309 PO; +NADO20TA PO
[2017-05-23] MEDS ORDERED: SODIUM CHLOR 0.9% 1000 ML INJ 1,000 ML IV SCH (15:39)
--- NOTE | 2017-05-23 15:40 | PD ---
HPI Chief Complaint: GI Complaint Time Seen by Provider: 15:40 Travel History International Travel<30 days: No Contact w/Intl Traveler<30days: No Traveled to known affect area: No History of Present Illness HPI 61-year-old male with history of alcohol cirrhosis presents to emergency department for evaluation of episodes of coffee-ground emesis starting this morning. Patient states he has esophageal varices and he has been hospitalized here for GI bleeds in the past. He states that he was well up until this morning. He woke up feeling very weak and tired. He then began to vomit and noticed it was coffee grounds. He felt maybe if he laid down it would subside but it continued until he decided to come into the emergency department. He states he has waited in the past and he has gotten really ill. Denies any significant pain. No recent illnesses, fever, or chills. Bowel movements have been normal. He has no other symptoms to report. PFSH Past Medical History Hx Anticoagulant Therapy: No Anemia: Yes (thrombocytopenia ) Asthma: No Autoimmune Disease: No Anxiety: No Depression: No Cancer: No Cardiovascular Problems: Yes (HTN ) Cirrhosis: Yes (Cirrhosis of the liver) COPD: No Cerebrovascular Accident: No Diabetes: No Diminished Hearing: No Endocrine: No Gastrointestinal Disorders: Yes (hx of esophageal varices) Genitourinary: Yes Headaches: No Heparin Induced Thrombocytopen: No Immune Disorder: No Implanted Vascular Access Dvce: No Kidney Stones: Yes (2009) Musculoskeletal: No Neurologic: Yes Psychiatric: No Reproductive: No Respiratory: Yes (Rt chest tubes) Migraines: No Renal Failure: No Seizures: No Sickle Cell Disease: No Sleep Apnea: No Thyroid Disease: No ?: Not Past Surgical History Surgical History: No Previous Surgery AICD: No Arteriovenous Shunt: No Cardiac Surgery: No Ear Surgery: No Endocrine Surgery: No Eye Surgery: No Genitourinary Surgery: No Gynecologic Surgery: No Insulin Pump: No Joint Replacement: No Neurologic Surgery: No Oral Surgery: No Pacemaker: No Thoracic Surgery: Yes (right side chest tubes) Other Surgery: Yes (R ELBOW BONE SPUR REMOVAL, Rt chest tubes for pleural effusion Aug 2016) Social History Alcohol Use: No Tobacco Use: No Substance Use: No Allergies-Medications (Allergen,Severity, Reaction): Coded Allergies: No Known Allergies (Unverified , 05/23/17) Reported Meds & Prescriptions Reported Meds & Active Scripts Active Reported Centrum Silver Adult 50+ (Multiple Vitamins W/ Minerals) 1 Tab Tab 1 Tab PO DAILY Calcium Citrate - Vit D Tablet (Calcium Citrate/Vitamin D3) 1 Each Tablet 1 Tab PO DAILY Vitamin A 8,000 Unit Capsule 8,000 Units PO DAILY Zinc (Zinc Gluconate) 50 Mg Tab 50 Mg PO DAILY Nadolol 40 Mg Tab 40 Mg PO DAILY Lasix (Furosemide) 20 Mg Tab 20 Mg PO DAILY Spironolactone 100 Mg Tab 100 Mg PO DAILY Review of Systems Except as stated in HPI: all other systems reviewed are Neg Physical Exam Narrative GENERAL: Well-nourished male patient, in no acute distress SKIN: Focused skin assessment warm/dry. Slightly jaundiced skin. HEAD: Atraumatic. Normocephalic. EYES: Pupils equal and round. scleral icterus. No injection or drainage. ENT: No nasal bleeding or discharge. Mucous membranes pink and moist. NECK: Trachea midline. No JVD. CARDIOVASCULAR: Regular rate and rhythm. RESPIRATORY: No accessory muscle use. Clear to auscultation. Breath sounds equal bilaterally. GASTROINTESTINAL: Abdomen soft, non-tender, nondistended. Hepatic and splenic margins not palpable. MUSCULOSKELETAL: No obvious deformities. No clubbing. No cyanosis. No edema. NEUROLOGICAL: Awake and alert. No obvious cranial nerve deficits. Motor grossly within normal limits. Normal speech. PSYCHIATRIC: Appropriate mood and affect; insight and judgment normal. Data Data Last Documented VS Vital Signs Date Time Temp Pulse Resp B/P Pulse Ox O2 Delivery O2 Flow Rate FiO2 05/23/17 17:43 77 18 106/59 98 05/23/17 16:01 Room Air 05/23/17 15:27 98.2 Orders Complete Blood Count With Diff (05/23/17 15:39) Comprehensive Metabolic Panel (05/23/17 15:39) Lipase (05/23/17 15:39) Prothrombin Time / Inr (Pt) (05/23/17 15:39) Act Partial Throm Time (Ptt) (05/23/17 15:39) Urinalysis - C+S If Indicated (05/23/17 15:39) Type And Screen (05/23/17 15:39) Chest, Single Ap (05/23/17 15:39) Ecg Monitoring (05/23/17 15:39) Iv Access Insert/Monitor (05/23/17 15:39) Oximetry (05/23/17 15:39) Ondansetron Inj (Zofran Inj) (05/23/17 15:45) Pantoprazole Inj (Protonix Inj) (05/23/17 15:45) Sodium Chlor 0.9% 1000 Ml Inj (Ns 1000 M (05/23/17 15:39) Sodium Chloride 0.9% Flush (Ns Flush) (05/23/17 15:45) Octreotide Inj (Sandostatin Inj) (05/23/17 16:30) Pantoprazole Inj (Protonix Inj) (05/23/17 16:30) Pantoprazole Inj (Protonix Inj) (05/23/17 16:30) Sodium Chlor 0.9% 1000 Ml Inj (Ns 1000 M (05/23/17 17:30) Labs Laboratory Tests Test 05/23/17 05/23/17 15:15 16:45 White Blood Count 4.6 TH/MM3 Red Blood Count 2.75 MIL/MM3 Hemoglobin 9.8 GM/DL Hematocrit 28.0 % Mean Corpuscular Volume 101.8 FL Mean Corpuscular Hemoglobin 35.8 PG Mean Corpuscular Hemoglobin 35.1 % Concent Red Cell Distribution Width 15.8 % Platelet Count 60 TH/MM3 Mean Platelet Volume 10.2 FL Neutrophils (%) (Auto) 74.4 % Lymphocytes (%) (Auto) 9.6 % Monocytes (%) (Auto) 13.1 % Eosinophils (%) (Auto) 2.6 % Basophils (%) (Auto) 0.3 % Neutrophils # (Auto) 3.4 TH/MM3 Lymphocytes # (Auto) 0.4 TH/MM3 Monocytes # (Auto) 0.6 TH/MM3 Eosinophils # (Auto) 0.1 TH/MM3 Basophils # (Auto) 0.0 TH/MM3 CBC Comment AUTO DIFF Differential Comment AUTO DIFF CONFIRMED Keratocytes 1+ Prothrombin Time 19.5 SEC Prothromb Time International 1.7 RATIO Ratio Activated Partial 36.2 SEC Thromboplast Time Sodium Level 137 MEQ/L Potassium Level 5.3 MEQ/L Chloride Level 101 MEQ/L Carbon Dioxide Level 30.9 MEQ/L Anion Gap 5 MEQ/L Blood Urea Nitrogen 36 MG/DL Creatinine 0.70 MG/DL Estimat Glomerular Filtration 115 ML/MIN Rate Random Glucose 133 MG/DL Calcium Level 8.9 MG/DL Total Bilirubin 5.4 MG/DL Aspartate Amino Transf 47 U/L (AST/SGOT) Alanine Aminotransferase 29 U/L (ALT/SGPT) Alkaline Phosphatase 126 U/L Total Protein 7.6 GM/DL Albumin 2.5 GM/DL Lipase 218 U/L Blood Type B POSITIVE Antibody Screen NEGATIVE Urine Color YELLOW Urine Turbidity CLEAR Urine pH 6.5 Urine Specific [place] 1.018 Urine Protein NEG mg/dL Urine Glucose (UA) NEG mg/dL Urine Ketones TRACE mg/dL Urine Occult Blood NEG Urine Nitrite NEG Urine Bilirubin NEG Urine Urobilinogen LESS THAN 2.0 MG/DL Urine Leukocyte Esterase NEG Urine RBC 1 /hpf Urine WBC 1 /hpf Urine Hyaline Casts 1 /lpf Microscopic Urinalysis Comment CULT NOT INDICATED MDM Medical Decision Making Medical Screen Exam Complete: Yes Emergency Medical Condition: Yes Medical Record Reviewed: Yes Differential Diagnosis GI bleed upper versus lower versus hypocoagulable state versus liver failure versus electrolyte abnormality versus gastroenteritis Narrative Course 61-year-old male presents to emergency department for evaluation a GI bleed. Patient has had upper GI bleed in the past with history of alcoholic cirrhosis and esophageal varices. Patient has gastric product positive for blood. Protonix bolus and drip were ordered. Discussed the patient with my attending physician also recommends Sandostatin drip. Laboratory Tests Test 05/23/17 05/23/17 15:15 16:45 White Blood Count 4.6 TH/MM3 Red Blood Count 2.75 MIL/MM3 Hemoglobin 9.8 GM/DL Hematocrit 28.0 % Mean Corpuscular Volume 101.8 FL Mean Corpuscular Hemoglobin 35.8 PG Mean Corpuscular Hemoglobin 35.1 % Concent Red Cell Distribution Width 15.8 % Platelet Count 60 TH/MM3 Mean Platelet Volume 10.2 FL Neutrophils (%) (Auto) 74.4 % Lymphocytes (%) (Auto) 9.6 % Monocytes (%) (Auto) 13.1 % Eosinophils (%) (Auto) 2.6 % Basophils (%) (Auto) 0.3 % Neutrophils # (Auto) 3.4 TH/MM3 Lymphocytes # (Auto) 0.4 TH/MM3 Monocytes # (Auto) 0.6 TH/MM3 Eosinophils # (Auto) 0.1 TH/MM3 Basophils # (Auto) 0.0 TH/MM3 CBC Comment AUTO DIFF Differential Comment AUTO DIFF CONFIRMED Keratocytes 1+ Prothrombin Time 19.5 SEC Prothromb Time International 1.7 RATIO Ratio Activated Partial 36.2 SEC Thromboplast Time Sodium Level 137 MEQ/L Potassium Level 5.3 MEQ/L Chloride Level 101 MEQ/L Carbon Dioxide Level 30.9 MEQ/L Anion Gap 5 MEQ/L Blood Urea Nitrogen 36 MG/DL Creatinine 0.70 MG/DL Estimat Glomerular Filtration 115 ML/MIN Rate Random Glucose 133 MG/DL Calcium Level 8.9 MG/DL Total Bilirubin 5.4 MG/DL Aspartate Amino Transf 47 U/L (AST/SGOT) Alanine Aminotransferase 29 U/L (ALT/SGPT) Alkaline Phosphatase 126 U/L Total Protein 7.6 GM/DL Albumin 2.5 GM/DL Lipase 218 U/L Blood Type B POSITIVE Antibody Screen NEGATIVE Urine Color YELLOW Urine Turbidity CLEAR Urine pH 6.5 Urine Specific [place] 1.018 Urine Protein NEG mg/dL Urine Glucose (UA) NEG mg/dL Urine Ketones TRACE mg/dL Urine Occult Blood NEG Urine Nitrite NEG Urine Bilirubin NEG Urine Urobilinogen LESS THAN 2.0 MG/DL Urine Leukocyte Esterase NEG Urine RBC 1 /hpf Urine WBC 1 /hpf Urine Hyaline Casts 1 /lpf Microscopic Urinalysis Comment CULT NOT INDICATED Hemoglobin is stable at 9.8. Patient does have moderate hyperkalemia of 5.4. A call has place to gastroenterology vice president of consulting services. [id number] Mosley, programming specialist vice president of consulting services. He requests admission to medicine. A consult will be placed to him. [facility] Point of Care Internal Pos. & Neg. Controls: Passed Gastric Specimen Occult Blood: Positive Diagnosis Primary Impression: Upper GI bleed Additional Impression: Alcoholic cirrhosis Qualified Code: K70.30 - Alcoholic cirrhosis of liver without ascites Admitting Information Admitting Physician Requests: Admit Condition: Stable Caitlin Villalpando May 23, 2017 15:40
[2017-05-23] MEDS ORDERED: PANTOPRAZOLE SODIUM 40 MG VIAL IVP ONE (15:45)
[2017-05-23] MEDS ORDERED: ONDANSETRON HCL 4 MG/2 ML VIAL IVP ONE (15:45)
[2017-05-23] MEDS ORDERED: SODIUM CHLORIDE 0.9% FLUSH 10 ML FLUSH IVF PRN (15:45)
--- NOTE | 2017-05-23 16:21 | RADRPT ---
EXAM DATE/TIME: 05/23/2017 15:46 [facility] COMPARISON: CHEST SINGLE AP, April 08, 2017, 8:24. INDICATIONS : Vomiting blood intermittent for 3 months. MEDICAL HISTORY : Hypertension. Cirrhosis. SURGICAL HISTORY : None. ENCOUNTER: Initial ACUITY: 3 months PAIN SCORE: 0/10 LOCATION: Bilateral chest FINDINGS: There is mild parenchymal opacity right lung base with associated effusion. The appearance is improve d from the prior exam. Left lung is clear. Cardiac contour is grossly satisfactory and stable. CONCLUSION: Right base infiltrate and effusion which is improved from the previous exam Carlos Self MD on May 23, 2017 at 16:17 Board Certified Radiologist. This report was verified electronically.
[2017-05-23 16:28] LABS: AUTOMATED NEUTROPHIL # 3.4 TH/MM3 (1.8-7.7); BASOPHIL % 0.3 % (0.0-2.0); EOSINOPHIL # 0.1 TH/MM3 (0-0.4); EOSINOPHIL % 2.6 % (0.0-4.0); LYMPH % 9.6 % (9.0-44.0); LYMPHOCYTE # 0.4 TH/MM3 (1.0-4.8); MEAN CELL VOLUME 101.8 FL (80.0-100.0); MEAN CORPUSCULAR HEMOGLOBIN 35.8 PG (27.0-34.0); MEAN CORPUSCULAR HGB CONC 35.1 % (32.0-36.0); MONO % 13.1 % (0.0-8.0); NEUT % 74.4 % (16.0-70.0); PLATELET COUNT 60 TH/MM3 (150-450); RED BLOOD COUNT 2.75 MIL/MM3 (4.50-5.90); RED CELL DISTRIBUTION WIDTH 15.8 % (11.6-17.2); WHITE BLOOD COUNT 4.6 TH/MM3 (4.0-11.0)
[2017-05-23 16:29] LABS: APTT (PATIENT) 36.2 SEC (24.3-30.1); INTERNATIONAL NORMALIZED RATIO 1.7 RATIO; PROTHROMBIN TIME - PATIENT 19.5 SEC (9.8-11.6)
[2017-05-23 16:30] LABS: HEMO FLAGS AUTO DIFF
[2017-05-23] MEDS ORDERED: PANTOPRAZOLE INJ 80 MG in SODIUM CHLORIDE 0.9% INJ 35 ML IV ONE (16:30)
[2017-05-23 16:38] LABS: ALT (GPT) 29 U/L (12-78); ANION GAP 5 MEQ/L (5-15); AST (GOT) 47 U/L (15-37); BICARBONATE 30.9 MEQ/L (21.0-32.0); BLOOD UREA NITROGEN 36 MG/DL (7-18); CHLORIDE 101 MEQ/L (98-107); GLOMERULAR FILTRATION RATE 115 ML/MIN (>89); POTASSIUM 5.3 MEQ/L (3.5-5.1); SODIUM (NA) 137 MEQ/L (136-145)
[2017-05-23 16:41] LABS: ALKALINE PHOSPHATASE 126 U/L (45-117); TOTAL BILIRUBIN ADULT 5.4 MG/DL (0.2-1.0)
[2017-05-23] MEDS ORDERED: VITA80003 PO (16:57)
[2017-05-23] MEDS ORDERED: NADO40TA PO (16:57)
[2017-05-23] MEDS ORDERED: SPIR100T PO (16:57)
[2017-05-23] MEDS ORDERED: CHEL50TA PO (16:57)
[2017-05-23] MEDS ORDERED: FURO1TAB62 PO (16:57)
[2017-05-23] MEDS ORDERED: MULT1TAB PO (16:57)
[2017-05-23] MEDS ORDERED: CALCTAB PO (16:57)
[2017-05-23 17:01] LABS: KERATOCYTES 1+ (NORMAL); SCAN/DIFF AUTO DIFF CONFIRMED
[2017-05-23] MEDS: OCTREOTIDE INJ 500 MCG in SODIUM CHLORID 0.9% 500 ML INJ 500 ML IV SCH (17:10)
[2017-05-23] MEDS: PANTOPRAZOLE INJ 80 MG in SODIUM CHLORIDE 0.9% INJ 100 ML IV SCH (17:11)
[2017-05-23 17:26] LABS: BLOOD, URINE NEG (NEG); COMMENT (UR) CULT NOT INDICATED; CULTURE IF INDICATED CULT NOT INDICATED; GLUCOSE,URINE NEG (NEG); HYALINE CAST, URINE 1 /lpf (RARE); KETONE, URINE TRACE mg/dL (NEG); NITRITE,URINE NEG (NEG); PH, URINE 6.5 (5.0-8.5); URINE COLOR YELLOW (YELLW/STRAW)
[2017-05-23] MEDS ORDERED: SODIUM CHLOR 0.9% 1000 ML INJ 1,000 ML IV ONE (17:30)
[2017-05-23] MEDS: SODIUM CHLOR 0.9% 1000 ML INJ 1,000 ML IV SCH (18:53)
[2017-05-23 19:17] LABS: HEMATOCRIT 20.7 % (39.0-51.0)
[2017-05-23] MEDS ORDERED: SODIUM CHLOR 0.9% 250 ML INJ 250 ML IV ONE (21:15)
--- NOTE | 2017-05-23 22:31 | MB ---
cc: DYLAN MOSLEY MOHAMMADREZA MD DATE OF CONSULTATION: 05/23/2017 REASON FOR CONSULTATION: Hematemesis. HISTORY: This is a 61 year-old [place] male with a history of alcohol related cirrhosis of the liver who presented to the emergency room with hematemesis, initially of dark material, but then in the emergency room he vomited up some bright red blood. He has had several episodes of GI bleeding in the past for which he has had endoscopy performed. The latest one was in February of this year which showed grade 1 esophageal varices and blood apparently present in the stomach because of portal hypertensive gastropathy. He did not have any ulcers or any other findings at that time. He does have a hiatal hernia. He has been evaluated by the [facility] for liver transplant but he is not on the list yet. His MELD score has been too low for him to be listed. He does not report any abdominal pain. No fever or chills, but his color has become somewhat more jaundiced. He stated that recently he was feeling very good and nothing in his recent past has changed. He denies any melena. PAST MEDICAL HISTORY: Positive for the placement of a chest tube, Pleur-Ex catheter that was used to drain fluid out of the pleural space. This later was removed successfully. PAST SURGICAL HISTORY: Negative for any other surgical procedures on the thorax or abdomen. SOCIAL HISTORY: He does not smoke cigarettes. He has not used alcohol for over one year. FAMILY HISTORY: Noncontributory. REVIEW OF SYSTEMS: Denies headache, sore throat, ear ache, fever, chills, otherwise complete review of systems is negative. PHYSICAL EXAMINATION: He is alert, oriented, jaundice male, in no apparent distress. Vital signs stable. HEENT: Significant jaundice. Moist mucous membranes. CHEST: Clear to auscultation and percussion. HEART: Heart sounds are normal. ABDOMEN: Soft. There is no tenderness. There is a hint of ascites. EXTREMITIES: Without clubbing, cyanosis or edema. PSYCH: Mood is normal and appropriate. LABORATORY DATA/X-RAYS: CBC shows white blood cell count 4,600, hematocrit 28%, platelet count 60,000, prothrombin time, INR is 1.7. BUN 36, creatinine 0.7. Electrolytes are otherwise normal. Bilirubin 5.4. AST 47. Albumin 2.5, lipase 218. Urinalysis is negative. Chest x-ray was reviewed personally, it shows some scarring in the right base, otherwise normal. IMPRESSION/PLAN: 1. Hematemesis, probably from portal hypertensive gastropathy. He should get octreotide drip and Protonix drip. 2. We will plan to do EGD in the morning. 3. He may have sips of clear liquids until 04:00 tomorrow morning. Dylan Mosley MD [facility] /7:06 PM /10:16 PM
--- NOTE | 2017-05-23 22:34 | HHI.HP ---
[facility] Juan Manuel Parisi MD Admission Diagnosis GI bleed; hematemesis Diagnoses: Chief Complaint: hematemesis Travel History International Travel<30 Days: No Contact w/Intl Traveler <30 Da: No Traveled to Known Affected Are: No History of Present Illness Written by Mirtha Woo, acting as scribe for Dr. Fontenot on 05/23/17 at 22:34. Looked poorly to family in a.m. [place] cramp in abdomen and "burping" sensation. Vomited a little bit. Went to bed. At about 1 p.m. felt dizzy. Threw up again - about half a cup - it was very dark emesis. At about 2:30 p.m. he was feeling nauseated, vomited, again it was dark and he phoned EMS. In the ER, he vomited blood. On way to floor vomited "bright, fresh, blood". He says he saw Dr. Mosley after admission and the plan is for EGD in a.m. Denies pain. Stools not black or red. Denies fever. He says he's a patient at [facility] for transplant and his last MELD was 23. An endoscopy 12 weeks ago showed esophageal varices. . Review of Systems Except as stated in HPI: all other systems reviewed are Neg Past Family Social History Past Medical History Nephrolithiasis Thrombocytopenia Cirrhosis Fatty liver disease End-stage liver disease History of esophageal varices Portal gastropathy Portal hypertension Denies diabetes, hypertension, CHF, atrial fibrillation, COPD/emphysema, kidney problems, DVT, PE, CVA, seizures . Past Surgical History Prior right-sided chest tube for pleural effusions 08/2016 Right elbow bone spur removal Multiple prior EGDs . Reported Medications Reported Meds & Active Scripts Active Reported Centrum Silver Adult 50+ (Multiple Vitamins W/ Minerals) 1 Tab Tab 1 Tab PO DAILY Calcium Citrate - Vit D Tablet (Calcium Citrate/Vitamin D3) 1 Each Tablet 1 Tab PO DAILY Vitamin A 8,000 Unit Capsule 8,000 Units PO DAILY Zinc (Zinc Gluconate) 50 Mg Tab 50 Mg PO DAILY Nadolol 40 Mg Tab 40 Mg PO DAILY Lasix (Furosemide) 20 Mg Tab 20 Mg PO DAILY Spironolactone 100 Mg Tab 100 Mg PO DAILY . Allergies: Coded Allergies: No Known Allergies (Unverified , 05/23/17) Active Ordered Medications Current Medications Ondansetron HCl (Zofran Inj) 4 mg ONCE ONCE IVP Last administered on 15:57; Start 05/23/17 at 15:45; Stop 05/23/17 at 15:46; Status DC Pantoprazole Sodium 40 mg 40 mg ONCE ONCE IVP Last administered on 05/23/17 15:58; Start 05/23/17 at 15:45; Stop 05/23/17 at 15:46; Status DC Sodium Chloride (NS 1000 ml Inj) 1,000 ml @ 1,000 mls/hr Q1H IV Last administered on 05/23/17 15:58; Start 05/23/17 at 15:39; Stop 05/23/17 at 16:38 ; Status DC Sodium Chloride 2 ml 2 ml UNSCH PRN IVF FLUSH AFTER USING IV ACCESS; Start at 15:45 Octreotide Acetate 500 mcg/ Sodium Chloride 500.5 ml @ 50 mls/hr Q10H IV Last administered on 05/23/17 17:10; Start 05/23/17 at 16:30 Pantoprazole Sodium 80 mg/ Sodium Chloride 35 ml @ 420 mls/hr ONCE ONCE IV Last administered on 05/23/17 17:11; Start 05/23/17 at 16:30; Stop 05/23/17 at 16:34; Status DC Pantoprazole Sodium 80 mg/ Sodium Chloride 100 ml @ 10 mls/hr Q10H IV Last administered on 05/23/17 17:11; Start 05/23/17 at 16:30 Sodium Chloride 1,000 ml @ 999 mls/hr BOLUS ONCE IV Last administered on 05/23 17:43; Start 05/23/17 at 17:30; Stop 05/23/17 at 18:30; Status DC Sodium Chloride 1,000 ml @ 100 mls/hr Q10H IV Last administered on 05/23/17 18:53; Start 05/23/17 at 18:45 Sodium Chloride (NS 250 ml Inj) 250 ml @ 15 mls/hr ONCE ONCE IV ; Start at 21:15; Stop 05/24/17 at 13:54 . Family History Mother from breast cancer in her 50s Father from heart failure age 63 . Social History Tobacco: Denies Alcohol: Denies; quit drinking Illicit Drugs: Denies . Physical Exam Vital Signs Vital Signs Date Time Temp Pulse Resp B/P Pulse Ox O2 Delivery O2 Flow Rate FiO2 05/23/17 20:30 96.3 59 16 90/52 95 05/23/17 18:00 66 15 105/52 98 05/23/17 17:43 77 18 106/59 98 05/23/17 16:01 66 21 119/56 97 Room Air 05/23/17 16:00 62 22 119/56 97 05/23/17 15:27 98.2 69 21 120/58 99 05/23/17 15:21 98.2 67 21 120/58 98 Physical Exam GENERAL: This is a well-nourished, well-developed pleasant male patient, in no apparent distress. SKIN: No rashes, ecchymoses or lesions. Cool and dry. HEAD: Atraumatic. Normocephalic. EYES: No scleral icterus. No injection or drainage. ENT: Nose without bleeding, purulent drainage. NECK: Trachea midline. No JVD or lymphadenopathy. CARDIOVASCULAR: Regular rate and rhythm without murmurs, gallops, or rubs. RESPIRATORY: Clear to auscultation. Breath sounds equal bilaterally. No wheezes , rales, or rhonchi. GASTROINTESTINAL: Abdomen soft, non-tender, nondistended. No guarding. Not currently vomiting. MUSCULOSKELETAL: Extremities without clubbing, cyanosis, or edema. No calf tenderness. NEUROLOGICAL: Awake and alert. Motor and sensory grossly within normal limits. Normal speech. . Laboratory Laboratory Tests Test 05/23/17 05/23/17 05/23/17 15:15 16:45 18:35 White Blood Count 4.6 Red Blood Count 2.75 Hemoglobin 9.8 7.0 Hematocrit 28.0 20.7 Mean Corpuscular Volume 101.8 Mean Corpuscular Hemoglobin 35.8 Mean Corpuscular Hemoglobin 35.1 Concent Red Cell Distribution Width 15.8 Platelet Count 60 Mean Platelet Volume 10.2 Neutrophils (%) (Auto) 74.4 Lymphocytes (%) (Auto) 9.6 Monocytes (%) (Auto) 13.1 Eosinophils (%) (Auto) 2.6 Basophils (%) (Auto) 0.3 Neutrophils # (Auto) 3.4 Lymphocytes # (Auto) 0.4 Monocytes # (Auto) 0.6 Eosinophils # (Auto) 0.1 Basophils # (Auto) 0.0 CBC Comment AUTO DIFF Differential Comment AUTO DIFF CONFIRMED Keratocytes 1+ Prothrombin Time 19.5 Prothromb Time International 1.7 Ratio Activated Partial 36.2 Thromboplast Time Sodium Level 137 Potassium Level 5.3 Chloride Level 101 Carbon Dioxide Level 30.9 Anion Gap 5 Blood Urea Nitrogen 36 Creatinine 0.70 Estimat Glomerular Filtration 115 Rate Random Glucose 133 Calcium Level 8.9 Total Bilirubin 5.4 Aspartate Amino Transf 47 (AST/SGOT) Alanine Aminotransferase 29 (ALT/SGPT) Alkaline Phosphatase 126 Total Protein 7.6 Albumin 2.5 Lipase 218 Blood Type B POSITIVE Antibody Screen NEGATIVE Urine Color YELLOW Urine Turbidity CLEAR Urine pH 6.5 Urine Specific [place] 1.018 Urine Protein NEG Urine Glucose (UA) NEG Urine Ketones TRACE Urine Occult Blood NEG Urine Nitrite NEG Urine Bilirubin NEG Urine Urobilinogen LESS THAN 2.0 Urine Leukocyte Esterase NEG Urine RBC 1 Urine WBC 1 Urine Hyaline Casts 1 Microscopic Urinalysis Comment CULT NOT INDICATED Result Diagram: 05/23/17 1835 05/23/17 1515 Imaging Last Impressions Chest X-Ray 05/23/17 1539 Signed Impressions: Service Date/Time: Tuesday, May 23, 2017 15:46 - CONCLUSION: Right base infiltrate and effusion which is improved from the previous exam Carlos Self MD . Assessment and Plan Assessment and Plan Upper GI bleeding ESLD Cirrhosis - Emesis Hemoccult-positive in ED - monitor serial H&H - follow trends - consult GI - assistance appreciated - NPO for EGD in a.m. - Sandostatin and Protonix drips ordered in ED Anemia secondary to GI blood loss - Hgb dropped from 9.8 to 7 over 3 hour time. - transfuse 2 units PRBCs - continue to follow labs/serial H&H - additional transfusions as needed DVT prophylaxis - chemoprophylaxis contraindicated due to gi bleed - SCDs . Discussed Condition With ER physician, patient, and RN . Physician Certification 2 Midnight Certification Type: Admission for Inpatient Services Order for Inpatient Services The services are ordered in accordance with Medicare regulations or non- Medicare payer requirements, as applicable. In the case of services not specified as inpatient-only, they are appropriately provided as inpatient services in accordance with the 2-midnight benchmark. Estimated LOS (days): 3 days is the estimated time the patient will need to remain in the hospital, assuming treatment plan goals are met and no additional complications. Post-Hospital Plan: Home Mirtha Woo May 23, 2017 22:34
[2017-05-24] VITALS (14 sets, daily range): BP systolic 89–131; BP diastolic 47–80; PULSE 55–86; RESP 16–20; TEMP 97.6–99; O2SAT 93–99
[2017-05-24] MEDS: PANTOPRAZOLE INJ 80 MG in SODIUM CHLORIDE 0.9% INJ 100 ML IV SCH (01:47)
[2017-05-24] MEDS: OCTREOTIDE INJ 500 MCG in SODIUM CHLORID 0.9% 500 ML INJ 500 ML IV SCH (01:47)
[2017-05-24] MEDS: SODIUM CHLOR 0.9% 1000 ML INJ 1,000 ML IV SCH ×2 (04:45→18:03)
[2017-05-24 05:52] LABS: HEMATOCRIT 22.9 % (39.0-51.0)
--- NOTE | 2017-05-24 09:44 | HHI.PR ---
Subjective Remarks This is a pleasant 61 y/o Male who came to ER after abdominal pain and vomit dark emesis, in ER vomited blood status post GI specialist scheduled for EGD today, as we know he has Nephrolithiasis, Thrombocytopenia, Cirrhosis Fatty liver disease, End stage liver disease, History of Esophageal varices, Portal Gastropathy, Portal Hypertension has history of prior right sided chest tube for pleural effusions 08/2016, Right elbow bone spur removal, Multiple Prior EGD. on this evaluation with Diagnosis of Upper GI bleed with Hematemesis , with findings of Distal esophageal Russell esophagus, and grade 1-2 varices, Stomach no blood no ulcers, Mucosa does not appear Edematous duodenum normal Suspected by GI specialist Dulafoy lesion not visible on today's Exam, Considering Interventional Radiology for abdominal Angiography. also TIPS procedure. Objective Vital Signs Date Time Temp Pulse Resp B/P Pulse Ox O2 Delivery O2 Flow Rate FiO2 05/24/17 08:48 98.0 65 16 96/50 98 05/24/17 08:15 Room Air 05/24/17 08:00 98.5 70 20 107/51 99 05/24/17 04:00 99.0 65 16 96/50 98 05/24/17 04:00 Room Air 05/24/17 02:15 98.0 66 20 91/80 05/24/17 01:45 98.0 67 20 89/48 05/24/17 00:00 98.9 71 16 95/47 99 05/24/17 00:00 Room Air 05/23/17 23:40 98.2 72 20 99/54 05/23/17 23:15 98.2 59 20 96/44 05/23/17 22:00 64 05/23/17 21:00 Room Air 05/23/17 20:30 96.3 59 16 90/52 95 05/23/17 18:00 66 15 105/52 98 05/23/17 17:43 77 18 106/59 98 05/23/17 16:01 66 21 119/56 97 Room Air 05/23/17 16:00 62 22 119/56 97 05/23/17 15:27 98.2 69 21 120/58 99 05/23/17 15:21 98.2 67 21 120/58 98 I/O 05/23/17 05/23/17 05/23/17 05/24/1728/17 6/28/17 07:00 15:00 23:00 07:00 15:00 23:00 Intake Total 1120 ml 2245 ml Output Total 100 ml 300 ml Balance 1020 ml 1945 ml Intake Oral 120 ml IV Total 1000 ml 1006 ml Packed Cells 600 ml Other 639 ml Output Urine Total 100 ml 300 ml # Voids 2 Result Diagram: 05/24/17 0539 05/23/17 1515 Imaging Last Impressions Chest X-Ray 05/23/17 1539 Signed Impressions: Service Date/Time: Tuesday, May 23, 2017 15:46 - CONCLUSION: Right base infiltrate and effusion which is improved from the previous exam Carlos Self MD Procedures With Diagnosis of Upper GI bleed with Hematemesis, with findings of Distal esophageal Russell esophagus, and grade 1-2 varices, Stomach no blood no ulcers, Mucosa does not appear Edematous duodenum normal Suspected by GI specialist Dulafoy lesion not visible on today's Exam, Considering Interventional Radiology for abdominal Angiography. also TIPS procedure. Other Results Laboratory Tests Test 05/23/17 05/23/17 05/23/17 05/24/17 15:15 16:45 21:07 05:39 White Blood Count 4.6 TH/MM3 Red Blood Count 2.75 MIL/MM3 Mean Corpuscular Volume 101.8 FL Mean Corpuscular Hemoglobin 35.8 PG Mean Corpuscular Hemoglobin 35.1 % Concent Red Cell Distribution Width 15.8 % Platelet Count 60 TH/MM3 Mean Platelet Volume 10.2 FL Neutrophils (%) (Auto) 74.4 % Lymphocytes (%) (Auto) 9.6 % Monocytes (%) (Auto) 13.1 % Eosinophils (%) (Auto) 2.6 % Basophils (%) (Auto) 0.3 % Neutrophils # (Auto) 3.4 TH/MM3 Lymphocytes # (Auto) 0.4 TH/MM3 Monocytes # (Auto) 0.6 TH/MM3 Eosinophils # (Auto) 0.1 TH/MM3 Basophils # (Auto) 0.0 TH/MM3 CBC Comment AUTO DIFF Differential Comment AUTO DIFF CONFIRMED Keratocytes 1+ Prothrombin Time 19.5 SEC Prothromb Time International 1.7 RATIO Ratio Activated Partial 36.2 SEC Thromboplast Time Sodium Level 137 MEQ/L Potassium Level 5.3 MEQ/L Chloride Level 101 MEQ/L Carbon Dioxide Level 30.9 MEQ/L Anion Gap 5 MEQ/L Blood Urea Nitrogen 36 MG/DL Creatinine 0.70 MG/DL Estimat Glomerular Filtration 115 ML/MIN Rate Random Glucose 133 MG/DL Calcium Level 8.9 MG/DL Total Bilirubin 5.4 MG/DL Aspartate Amino Transf 47 U/L (AST/SGOT) Alanine Aminotransferase 29 U/L (ALT/SGPT) Alkaline Phosphatase 126 U/L Total Protein 7.6 GM/DL Albumin 2.5 GM/DL Lipase 218 U/L Antibody Screen NEGATIVE Urine Color YELLOW Urine Turbidity CLEAR Urine pH 6.5 Urine Specific [place] 1.018 Urine Protein NEG mg/dL Urine Glucose (UA) NEG mg/dL Urine Ketones TRACE mg/dL Urine Occult Blood NEG Urine Nitrite NEG Urine Bilirubin NEG Urine Urobilinogen LESS THAN 2.0 MG/DL Urine Leukocyte Esterase NEG Urine RBC 1 /hpf Urine WBC 1 /hpf Urine Hyaline Casts 1 /lpf Microscopic Urinalysis Comment CULT NOT INDICATED Blood Type B POSITIVE Crossmatch Leukocyte-Reduced Red Blood Cells Blood Bank Comment Hemoglobin 8.1 GM/DL Hematocrit 22.9 % Objective Remarks GENERAL: Well-developed pleasant male patient, in no apparent distress. SKIN: No rashes, ecchymoses or lesions. Cool and dry. HEAD: Atraumatic. Normocephalic. EYES: No scleral icterus. No injection or drainage. ENT: Nose without bleeding, purulent drainage. NECK: Trachea midline. No JVD or lymphadenopathy. CARDIOVASCULAR: Regular rate and rhythm without murmurs, gallops, or rubs. RESPIRATORY: Clear to auscultation. Breath sounds equal bilaterally. No wheezes , rales, or rhonchi. GASTROINTESTINAL: Abdomen soft, non-tender, nondistended. No guarding. Not currently vomiting. MUSCULOSKELETAL: Extremities without clubbing, cyanosis, or edema. No calf tenderness. NEUROLOGICAL: Awake and alert. Motor and sensory grossly within normal limits. Normal speech. Medications and IVs Current Medications Medications (Trade) Dose Ordered Sig/Armida Route Start Time Stop Time Status Last Admin Sodium Chloride 2 ml 2 ml UNSCH PRN IVF 05/23/17 15:45 Octreotide Acetate 500 mcg/ Sodium Chloride 500.5 ml @ 50 mls/hr Q10H IV 05/23/17 16:30 05/24/17 01:47 Pantoprazole Sodium 80 mg/ Sodium Chloride 100 ml @ 10 mls/hr Q10H IV 05/23/17 16:30 05/24/17 01:47 Sodium Chloride 1,000 ml @ 100 mls/hr Q10H IV 05/23/17 18:45 05/24/17 04:45 (NS 250 ml Inj) 250 ml @ 15 mls/hr ONCE ONCE IV 05/23/17 21:15 05/24/17 13:54 05/23/17 23:15 A/P Assessment and Plan 1. Upper GI bleeding with Diagnosis of Upper GI bleed with Hematemesis, with findings of Distal esophageal Russell esophagus, and grade 1-2 varices, Stomach no blood no ulcers, Mucosa does not appear Edematous duodenum normal Suspected by GI specialist Dulafoy lesion not visible on today's Exam, asked by GI for Interventional Radiology for abdominal Angiography. also TIPS procedure will be considered. 2. ESLD GI specialist handle 3. Cirrhosis secondary to alcohol abuse in the past. 4. Anemia as Chronic Iron deficiency anemia, probable worsening due to acute blood loss but his main issue is Cirrhosis and probable chronic bleeding. DVT prophylaxis - chemoprophylaxis contraindicated due to gi bleed - SCDs . Discussed Condition With Patient and nurse Miss Morgan, all questions answered to the best of my abilities. Discharge Planning once cleared by GI specialist. Barrington Negron MD May 24, 2017 09:44
[2017-05-24] MEDS ORDERED: ONDANSETRON HCL 4 MG/2 ML VIAL IV PUSH ONE (11:00)
[2017-05-24] MEDS ORDERED: PROPOFOL 200 MG/20 ML AMP IV ONE (11:43)
--- NOTE | 2017-05-24 11:59 | HHI.GIFU ---
Subjective Remarks Immediate post procedure note: EGD Indication: upper gi bleed with hematemesis Meds: GET anesthesia Findings: Distal esophageal Barretts esophagus and grade 1-2 varices Stomach: no blood. No ulcers. Mucosa does not appear edematous duodenum: normal Objective Vitals I&O Vital Signs Date Time Temp Pulse Resp B/P Pulse Ox O2 Delivery O2 Flow Rate FiO2 05/24/17 08:48 98.0 65 16 96/50 98 05/24/17 08:15 Room Air 05/24/17 08:09 72 05/24/17 08:00 98.5 70 20 107/51 99 05/24/17 04:00 99.0 65 16 96/50 98 05/24/17 04:00 Room Air 05/24/17 02:15 98.0 66 20 91/80 05/24/17 01:45 98.0 67 20 89/48 05/24/17 00:00 98.9 71 16 95/47 99 05/24/17 00:00 Room Air 05/23/17 23:40 98.2 72 20 99/54 05/23/17 23:15 98.2 59 20 96/44 05/23/17 22:00 64 05/23/17 21:00 Room Air 05/23/17 20:30 96.3 59 16 90/52 95 05/23/17 18:00 66 15 105/52 98 05/23/17 17:43 77 18 106/59 98 05/23/17 16:01 66 21 119/56 97 Room Air 05/23/17 16:00 62 22 119/56 97 05/23/17 15:27 98.2 69 21 120/58 99 05/23/17 15:21 98.2 67 21 120/58 98 I/O 05/23/17 05/23/17 05/23/17 05/24/17 05/24/17 05/24/17 07:00 15:00 23:00 07:00 15:00 23:00 Intake Total 1120 ml 2245 ml Output Total 100 ml 300 ml Balance 1020 ml 1945 ml Intake Oral 120 ml IV Total 1000 ml 1006 ml Packed Cells 600 ml Other 639 ml Output Urine Total 100 ml 300 ml # Voids 2 Laboratory Laboratory Tests Test 05/23/17 05/23/17 05/23/17 05/23/17 15:15 16:45 18:35 21:07 White Blood Count 4.6 Red Blood Count 2.75 Hemoglobin 9.8 7.0 Hematocrit 28.0 20.7 Mean Corpuscular Volume 101.8 Mean Corpuscular Hemoglobin 35.8 Mean Corpuscular Hemoglobin 35.1 Concent Red Cell Distribution Width 15.8 Platelet Count 60 Mean Platelet Volume 10.2 Neutrophils (%) (Auto) 74.4 Lymphocytes (%) (Auto) 9.6 Monocytes (%) (Auto) 13.1 Eosinophils (%) (Auto) 2.6 Basophils (%) (Auto) 0.3 Neutrophils # (Auto) 3.4 Lymphocytes # (Auto) 0.4 Monocytes # (Auto) 0.6 Eosinophils # (Auto) 0.1 Basophils # (Auto) 0.0 CBC Comment AUTO DIFF Differential Comment AUTO DIFF CONFIRMED Keratocytes 1+ Prothrombin Time 19.5 Prothromb Time International 1.7 Ratio Activated Partial 36.2 Thromboplast Time Sodium Level 137 Potassium Level 5.3 Chloride Level 101 Carbon Dioxide Level 30.9 Anion Gap 5 Blood Urea Nitrogen 36 Creatinine 0.70 Estimat Glomerular Filtration 115 Rate Random Glucose 133 Calcium Level 8.9 Total Bilirubin 5.4 Aspartate Amino Transf 47 (AST/SGOT) Alanine Aminotransferase 29 (ALT/SGPT) Alkaline Phosphatase 126 Total Protein 7.6 Albumin 2.5 Lipase 218 Blood Type B POSITIVE B POSITIVE Antibody Screen NEGATIVE Urine Color YELLOW Urine Turbidity CLEAR Urine pH 6.5 Urine Specific [place] 1.018 Urine Protein NEG Urine Glucose (UA) NEG Urine Ketones TRACE Urine Occult Blood NEG Urine Nitrite NEG Urine Bilirubin NEG Urine Urobilinogen LESS THAN 2.0 Urine Leukocyte Esterase NEG Urine RBC 1 Urine WBC 1 Urine Hyaline Casts 1 Microscopic Urinalysis Comment CULT NOT INDICATED Crossmatch Leukocyte-Reduced Red Blood Cells Blood Bank Comment Test 05/24/17 05:39 Hemoglobin 8.1 Hematocrit 22.9 Physical Exam HEENT: Pupils round and reactive to light; normocephalic; atraumatic; no jaundice. Throat is clear. NECK: Neck is supple, no JVD, no lymphadenopathy. CHEST: Chest is clear to auscultation and percussion. CARDIAC: Regular rate and rhythm with no murmur gallop or rubs. ABDOMEN: Soft, nondistended, nontender; no hepatosplenomegaly; bowel sounds are present in all four quadrants. EXTREMITIES: No clubbing, cyanosis, or edema. SKIN: Normal; no rash; no jaundice. LIQUOR COMMISSIONER: No focal deficits; alert and oriented times three. Assessment and Plan Plan Impression: UGI bleed with hematemesis and melena. No lesions seen to account for the bleeding. Suspect Deulafoy lesion not visible on todays exam. Rec: Consider Interventional radiology for angiogram of stomach to identify deulafoy lesion and embolize. Consider TIPSS if no deulafoy lesion seen, for recurrent GI bleeding and cirrhosis. Clear liquid diet. Stop octreotide drip. Dylan Mosley MD May 24, 2017 11:59
[2017-05-24] MEDS ORDERED: DO NOT ADM ANY ANTICOAGULANT DRUGS PRN (12:45)
[2017-05-24] MEDS ORDERED: fentaNYL CITRATE 250 MCG/5 ML AMP ONE (14:25)
[2017-05-24] MEDS ORDERED: MIDAZOLAM HCL 5 MG/5 ML VIAL ONE (14:25)
[2017-05-24 14:43] LABS: BICARBONATE 26.2 MEQ/L (21.0-32.0); POTASSIUM 4.5 MEQ/L (3.5-5.1)
[2017-05-24] MEDS ORDERED: SODIUM CHLOR 0.9% 1000 ML INJ 1,000 ML IV SCH (17:42)
--- NOTE | 2017-05-24 17:44 | PD.RAD ---
Post Procedure Progress Note Pre Procedure Diagnosis: (1) Upper GI bleed Post Procedure Diagnosis: (1) Upper GI bleed Procedure Date: May 24, 2017 Supervising Radiologist: Carlos Self Proceduralist/Assist: RT Lester(R)() Anesthesia: Local, Conscious Sedation Plan of Activity Patient to Unit: ROPU Patient Condition: Good See PACS Report for procedural detail/treatment Vascular-Arterial Procedure Procedure 1 Procedure Site: Celiac, Superior Mesenteric Artery Procedure(s): Angiogram Access Access Site(s): Right Femoral Artery Closure Site(s): Right hemostasis patch Findings: no hemorrhagic focus identified Carlos Self MD May 24, 2017 17:44
[2017-05-24] MEDS ORDERED: IODIXANOL 320 MG/ML 50 ML VIAL (for RAD SPEC) I-ARTERIAL ONE (17:51)
[2017-05-24 18:15] LABS: TRANSFERRIN IRON PROFILE 119 MG/DL (200-360)
[2017-05-24 18:18] LABS: FERRITIN 610 NG/ML (26-388)
[2017-05-25] VITALS (11 sets, daily range): BP systolic 115–169; BP diastolic 56–77; PULSE 57–90; RESP 16–20; TEMP 97.6–98.9; O2SAT 95–100
[2017-05-25] MEDS: SODIUM CHLOR 0.9% 1000 ML INJ 1,000 ML IV SCH ×3 (08:00→20:37)
[2017-05-25 08:22] LABS: HEMATOCRIT 22.4 % (39.0-51.0); MEAN CELL VOLUME 97.2 FL (80.0-100.0); MEAN CORPUSCULAR HEMOGLOBIN 34.5 PG (27.0-34.0); MEAN CORPUSCULAR HGB CONC 35.5 % (32.0-36.0); PLATELET COUNT 32 TH/MM3 (150-450); RED CELL DISTRIBUTION WIDTH 18.7 % (11.6-17.2); WHITE BLOOD COUNT 3.2 TH/MM3 (4.0-11.0)
[2017-05-25 08:28] LABS: HEMO FLAGS AUTO DIFF
[2017-05-25 10:00] LABS: BANDS 24 % (0-6); BURR CELLS 1+ (NORMAL); NEUTROPHIL # MANUAL DIFF 2.9 TH/MM3 (1.8-7.7); PLATELET ESTIMATE SMEAR LOW (NORMAL); PLATELET MORPHOLOGY NORMAL (NORMAL); POLYS (SEG NEUTROPHILS) 66 % (16-70); SCAN/DIFF FINAL DIFF MANUAL; WBC DIFF SAMPLE 100
--- NOTE | 2017-05-25 12:21 | HHI.PR ---
Subjective Remarks Patient states that he is doing well. He has no active shortness of breath or coughing. He states when he first came in he was coughing up a lot of blood and unknown if he had aspirated. He states that he has no chills or fever. Has has no active pain. He is tolerating diet without any nausea or vomiting. Objective Vitals Vital Signs Date Time Temp Pulse Resp B/P Pulse Ox O2 Delivery O2 Flow Rate FiO2 05/25/17 11:23 57 05/25/17 10:53 96 21 05/25/17 08:08 97.7 59 18 120/56 100 05/25/17 04:42 97.6 90 20 115/58 100 05/25/17 00:39 97.8 58 16 122/58 96 05/25/17 00:00 Room Air 05/24/17 20:19 73 05/24/17 20:00 Room Air 05/24/17 20:00 97.6 61 18 124/56 98 05/24/17 17:45 86 20 123/63 95 05/24/17 17:31 21 05/24/17 17:30 60 20 122/62 93 05/24/17 17:15 55 18 121/64 95 05/24/17 17:00 97.6 55 18 127/69 94 05/24/17 12:25 64 18 139/63 98 Room Air 05/24/17 12:15 63 16 137/66 97 Room Air I/O 05/24/17 05/24/17 05/24/17 05/25/17 05/25/17 05/25/17 07:00 15:00 23:00 07:00 15:00 23:00 Intake Total 2245 ml 1120 ml 424 ml 1959 ml Output Total 300 ml 475 ml 500 ml Balance 1945 ml 645 ml 424 ml 1459 ml Intake Oral 0 ml 1240 ml IV Total 1006 ml 320 ml 424 ml 719 ml Packed Cells 600 ml Other 639 ml 800 ml Output Urine Total 300 ml 475 ml 500 ml # Bowel Movements 1 0 Result Diagram: 05/25/17 0652 05/24/17 1347 Other Results Imaging Last Impressions Chest X-Ray 05/23/17 9032 Signed Impressions: Service Date/Time: Tuesday, May 23, 2017 15:46 - CONCLUSION: Right base infiltrate and effusion which is improved from the previous exam Carlos Self MD Objective Remarks GENERAL: This is a well-nourished, well-developed patient, in no apparent distress. CARDIOVASCULAR: Regular rate and rhythm RESPIRATORY: Relatively Clear to auscultation. GASTROINTESTINAL: Abdomen soft, distended, non-tender, nondistended. Normal active bowel sounds MUSCULOSKELETAL: Extremities without clubbing, cyanosis, with trace edema NEURO: Alert & Oriented x4 to person, place, time, situation. Moves all ext x4 Procedures 05/23 EGDwith findings of Russell's and suspect dulafoy lesion 05/24 celiac and SMA angiography A/P Assessment and Plan This is a pleasant 61 y/o Male with a history of cirrhosis, end-stage liver disease, esophageal varices, portal gastropathy who came to ER after abdominal pain and vomit dark emesis, in ER vomited blood status post EGD on 05/23 with Diagnosis of Upper GI bleed with Hematemesis during this hospitalization, with findings of Distal esophageal Russell esophagus, and grade 1-2 varices, Stomach no blood no ulcers, Mucosa does not appear Edematous duodenum normal Suspected by GI specialist Dulafoy lesion Interventional radiologist consulted by GI who performed a celiac and SMA angiography. GI also recommended to consider future TIPS 2. ESLD -follow-up as an outpatient. 3. Cirrhosis secondary to alcohol abuse in the past, calls were elevated INR and PT. 4. Anemia as Chronic Iron deficiency anemia, worsen on admission due to acute GI bleeding and blood loss. Hemoglobin stabilized after EGD and CI SMA angiography. Will monitor hemoglobin. No signs of further active bleeding or hematoma emesis. 5. Bandemia today with drop in platelets/thrombocytopenia- will need to rule out underlying early sepsis. This time will initiate sepsis workup protocol with lactic acid, INR PT, T bilirubin, creatinine. Patient did have right base infiltrate/effusion which could be from previous early aspiration for hematemesis. Blood cultures times he will be drawn. Will initiate empiric IV Levaquin and Flagyl. IV fluid hydration. Will continue monitor closely. 6. DVT prophylaxisanticoagulation contraindicated due to GI bleed, thrombocytopenia, end-stage liver disease. DVT prophylaxis - chemoprophylaxis contraindicated due to gi bleed - SCDs Discharge Planning Pending clinical status. Mckenzie Arteaga MD May 25, 2017 12:20
[2017-05-25] MEDS: metroNIDAZOLE 500 MG TAB PO SCH ×2 (13:50→23:06)
[2017-05-25] MEDS: LEVOFLOXACIN 750 MG PREMIX INJ 150 ML IV SCH (13:51)
--- NOTE | 2017-05-25 14:12 | HHI.GIFU ---
Subjective Remarks Resting in bed. No further episodes of active bleeding. Denies any nausea, vomiting, abdominal pain. Objective Vitals I&O Vital Signs Date Time Temp Pulse Resp B/P Pulse Ox O2 Delivery O2 Flow Rate FiO2 05/25/17 12:27 98.3 78 18 125/60 97 05/25/17 11:23 57 05/25/17 10:53 96 21 05/25/17 08:08 97.7 59 18 120/56 100 05/25/17 04:42 97.6 90 20 115/58 100 05/25/17 00:39 97.8 58 16 122/58 96 05/25/17 00:00 Room Air 05/24/17 20:19 73 05/24/17 20:00 Room Air 05/24/17 20:00 97.6 61 18 124/56 98 05/24/17 17:45 86 20 123/63 95 05/24/17 17:31 21 05/24/17 17:30 60 20 122/62 93 05/24/17 17:15 55 18 121/64 95 05/24/17 17:00 97.6 55 18 127/69 94 I/O 05/24/17 05/24/17 05/24/17 05/25/17 05/25/17 05/25/17 07:00 15:00 23:00 07:00 15:00 23:00 Intake Total 2245 ml 1120 ml 424 ml 1959 ml Output Total 300 ml 475 ml 500 ml Balance 1945 ml 645 ml 424 ml 1459 ml Intake Oral 0 ml 1240 ml IV Total 1006 ml 320 ml 424 ml 719 ml Packed Cells 600 ml Other 639 ml 800 ml Output Urine Total 300 ml 475 ml 500 ml # Bowel Movements 1 0 Laboratory Laboratory Tests Test 05/25/17 06:52 White Blood Count 3.2 Red Blood Count 2.30 Hemoglobin 7.9 Hematocrit 22.4 Mean Corpuscular Volume 97.2 Mean Corpuscular Hemoglobin 34.5 Mean Corpuscular Hemoglobin 35.5 Concent Red Cell Distribution Width 18.7 Platelet Count 32 Mean Platelet Volume 9.2 Neutrophils (%) (Auto) Lymphocytes (%) (Auto) Monocytes (%) (Auto) Eosinophils (%) (Auto) Basophils (%) (Auto) Neutrophils # (Auto) Lymphocytes # (Auto) Monocytes # (Auto) Eosinophils # (Auto) Basophils # (Auto) CBC Comment AUTO DIFF Differential Total Cells 100 Counted Neutrophils % (Manual) 66 Band Neutrophils % 24 Lymphocytes % 9 Monocytes % 1 Neutrophils # (Manual) 2.9 Differential Comment FINAL DIFF MANUAL Platelet Estimate LOW Platelet Morphology Comment NORMAL [place] Cells 1+ Imaging Last Impressions Chest X-Ray 05/23/17 1539 Signed Impressions: Service Date/Time: Tuesday, May 23, 2017 15:46 - CONCLUSION: Right base infiltrate and effusion which is improved from the previous exam Carlos Self MD Physical Exam HEENT: Normocephalic; atraumatic; no jaundice. CHEST: CTA. CARDIAC: RRR. ABDOMEN: Soft, nondistended, nontender; hepatosplenomegaly; bowel sounds are present in all four quadrants. EXTREMITIES: No clubbing, cyanosis, or edema. SKIN: Normal; no rash; no jaundice. 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 Assessment and Plan Plan ASSESSMENT: - Recurrent upper GIB, hematemesis. S/P EGD (05/24/17)-----> Distal esophageal Barretts esophagus and grade 1-2 varices, Stomach: no blood. No ulcers. Mucosa does not appear edematous duodenum: normal. S/P Angiogram of the Celiac, Superior Mesenteric Artery (05/24/17)---> no hemorrhagic focus identified. No further bleeding. HH did drop to 7.9/22.4. Protonix gtt. Feels good, no n/v/pain. No active bleeding. - Anemia, acute blood loss. 7.9/22.4. S/P 6 units PRBC. - Coagulopathy, Thrombocytopenia. S/P 2 units FFP, 2 units Platelets. Plt 32, INR 1.7. - Liver cirrhosis. Established at [facility], Caitlin Styles . T. Bili 5.4, AST 47, ALT 29, Alk Phosph 126. - GERD, Russell's Esophagus. Protonix. PLAN: - MARCO A - Cont. Protonix Gtt - Monitor HH - Transfuse as necessary - Supportive care - Further recommendations to follow based on results of above - Pt seen and examined by Dr. Mosley and myself and this note is written on her behalf Natalia Anderson May 25, 2017 14:12
[2017-05-25 14:30] LABS: APTT (PATIENT) 35.7 SEC (24.3-30.1); INTERNATIONAL NORMALIZED RATIO 1.8 RATIO; PROTHROMBIN TIME - PATIENT 19.9 SEC (9.8-11.6)
[2017-05-25 14:36] LABS: TOTAL BILIRUBIN ADULT 4.7 MG/DL (0.2-1.0)
--- NOTE | 2017-05-25 15:39 | RADRPT ---
EXAM DATE/TIME: 05/24/2017 14:23 [place] COMPARISON: No previous studies available for comparison. INDICATIONS : Patient is in matt of a mesenteric angiogram for continuous hematemesis. MEDICAL HISTORY : History of ETOH abuse, liver cirrohosis, esophaeal varices, thrombocytopenia, nephrolithiasis, fatty liver disease, portal gastropathy, portal hypertension, right pleural effusion. SURGICAL HISTORY : History of EGD, chest tube placement, right elbow bone spur removal. ENCOUNTER: Initial ACUITY: 1 day PAIN SCORE: 0/10 FLUORO TIME: 36.2 minutes IMAGE SERIES: 19 ACCESS SITE: Right Femoral artery SEDATION TIME: 90 minutes CONTRAST: 1.) 130 cc Visipaque (iodixanol) MEDICATION(S): 1.) 3 mg midazolam (Versed) IV 2.) 150 mcg fentanyl (Sublimaze) IV PROCEDURE : 1. Ultrasound-guided puncture of the right common femoral artery access site. 2. Conscious sedation with continuous EKG and Oximetry monitoring. 3. selective catheterization, superior mesenteric artery 4. Angiography of the superior mesenteric artery 5. selective catheterization, splenic artery 6. Selective celiac and splenic arteriography with splenoportography The patient was placed supine on the angiography table. The right groin was prepped in sterile fashio n. Full sterile technique was used, including cap, mask, sterile gloves and gown and a large sterile sheet. Hand hygiene and 2% chlorhexidine and/or betadine/alcohol prep was utilized per protocol for c utaneous antisepsis. The skin and subcutaneous tissues were infiltrated with lidocaine solution. Blun t dissection was utilized to free up the tissues superficial to the common femoral artery. Under dire ct ultrasound guidance, micropuncture access was accomplished into the common femoral artery allowing placement of a 4 [place] vascular sheath. The ultrasound images depicting access guidance were saved and stored to PACS for permanent record. A 4 [place] hook catheter was introduced and used to select the superior mesenteric artery. Selective superior mesenteric arteriography was performed. The catheter was then used to select the celiac artery and selective celiac arteriography was perform ed. The left gastric artery could not be selectively catheterized. The hepatic artery could not be se lectively catheterized. The splenic artery was selectively catheterized and evaluated with DSA. Filmi ng was carried into the portal venous phase. The catheter and sheath were removed and hemostasis was achieved at the right groin with direct press ure application of hemostatic patch. The patient tolerated the procedure well and was [facility] in stable condition. FINDINGS: There is very prominent flow to the hepatic circulation from SMA injection through large pancreaticod uodenal vessels. This would be consistent with celiac or proximal common hepatic artery stenosis. The common hepatic artery could not be selectively catheterized, however the vessel is proximally patent . The left gastric artery is unremarkable in appearance. No suspicious findings are present in the sp lenic circulation with visualization normal-appearing short gastric vessels. Splenoportography reveal s hepatopedal portal vein flow with some shunting of flow into coronary varices. CONCLUSION: No suspicious arterial vascular findings. Some filling of left gastric varices on splenoportography. Carlos Self MD on May 25, 2017 at 14:51 Board Certified Radiologist. This report was verified electronically.
[2017-05-25 16:44] LABS: LACTIC ACID GHOST NOT REPORTABLE
[2017-05-25] MEDS ORDERED: SODIUM CHLOR 0.9% 1000 ML INJ 1,000 ML IV ONE ×2 (17:24)
[2017-05-25] MEDS ORDERED: SODIUM CHLOR 0.9% 1000 ML INJ 100 ML IV ONE (17:24)
--- NOTE | 2017-05-25 22:34 | MP ---
cc: DYLAN MOSLEY MD, DR., DATE OF SURGERY: 05/24/2017 PROCEDURE Esophagoduodenostomy. INDICATION Upper GI bleed with hematemesis. REFERRED BY Dr. Craig. PROCEDURE After informed consent was obtained, the patient was placed in the supine position. He was given endotracheal anesthesia. After sedation was achieved, he was turned onto his left side. The Pentax video gastroscope was inserted in the oropharynx and advanced through the esophagus, stomach and duodenum. It was then slowly withdrawn examining the mucosa surfaces carefully. A retroflex examination was performed. The scope was then straightened and pulled through the esophagus and the procedure was terminated. He tolerated the procedure well and was returned to the recovery are in good condition. FINDINGS 1. He had distal esophageal Russell's esophagus and grade 1-2 esophageal varices. 2. In the stomach there was no blood, no ulcerations were seen. The mucosal surfaces did not appear edematous. 3. The duodenum was normal. IMPRESSION Upper GI bleed with hematemesis of uncertain cause. Consider the possibility of a Dieulafoy lesion not visible on today's exam. RECOMMENDATION 1. Consider interventional radiology for arteriogram of the celiac axis to identify a possible Dieulafoy lesion for the purpose of embolization. 2. Consider TIPSS if no Dieulafoy lesion seen for recurrent GI bleeding and cirrhosis. 3. Discontinue the octreotide drip. 4. We will keep the patient n.p.o. in case of arteriogram performed today. Dylan Mosley MD [facility] /12:11 PM /10:23 PM
[2017-05-26] VITALS (7 sets, daily range): BP systolic 95–135; BP diastolic 45–60; PULSE 71–94; RESP 16–20; TEMP 97.4–98.7; O2SAT 94–98
[2017-05-26] MEDS: metroNIDAZOLE 500 MG TAB PO SCH ×3 (06:11→21:16)
[2017-05-26] MEDS: SODIUM CHLOR 0.9% 1000 ML INJ 1,000 ML IV SCH ×2 (06:11→21:16)
[2017-05-26 09:33] LABS: HEMATOCRIT 22.3 % (39.0-51.0); MEAN CELL VOLUME 97.8 FL (80.0-100.0); MEAN CORPUSCULAR HEMOGLOBIN 34.3 PG (27.0-34.0); MEAN CORPUSCULAR HGB CONC 35.1 % (32.0-36.0); PLATELET COUNT 29 TH/MM3 (150-450); RED BLOOD COUNT 2.28 MIL/MM3 (4.50-5.90); RED CELL DISTRIBUTION WIDTH 18.8 % (11.6-17.2); WHITE BLOOD COUNT 2.1 TH/MM3 (4.0-11.0)
[2017-05-26 09:39] LABS: HEMO FLAGS AUTO DIFF
[2017-05-26 10:32] LABS: BANDS 13 % (0-6); BURR CELLS 1+ (NORMAL); EOSINOPHILS 1 % (0-4); NEUTROPHIL # MANUAL DIFF 1.5 TH/MM3 (1.8-7.7); OVALOCYTES 1+ (NORMAL); PLATELET ESTIMATE SMEAR LOW (NORMAL); PLATELET MORPHOLOGY NORMAL (NORMAL); POLYS (SEG NEUTROPHILS) 59 % (16-70); SCAN/DIFF FINAL DIFF MANUAL; WBC DIFF SAMPLE 100
[2017-05-26] MEDS: LEVOFLOXACIN 750 MG PREMIX INJ 150 ML IV SCH (12:59)
--- NOTE | 2017-05-26 16:07 | HHI.PR ---
Subjective Remarks no nausea or vomiting or abdominal pain d/w him that his blood culture was + and is on antibiotics denies any cough symptoms or urinary symptoms, no diarreha Objective Vitals Vital Signs Date Time Temp Pulse Resp B/P Pulse Ox O2 Delivery O2 Flow Rate FiO2 05/26/17 10:21 96 21 05/26/17 08:00 97.4 92 20 110/58 98 05/26/17 04:00 98.3 71 18 95/45 96 05/26/17 00:00 Room Air 05/26/17 00:00 98.7 72 18 99/48 95 05/25/17 20:25 Room Air 05/25/17 20:18 78 05/25/17 20:00 98.9 76 18 122/59 95 05/25/17 18:01 98 21 05/25/17 16:08 98.1 74 20 118/59 98 I/O 05/25/17 05/25/17 05/25/17 05/26/17 05/26/17 05/26/17 07:00 15:00 23:00 07:00 15:00 23:00 Intake Total 1959 ml 650 ml 4646 ml 912 ml Output Total 500 ml 7500 ml 500 ml Balance 1459 ml -6850 ml 4146 ml 912 ml Intake Oral 1240 ml 500 ml 720 ml 120 ml IV Total 719 ml 150 ml 3926 ml 792 ml Output Urine Total 500 ml 7500 ml 500 ml # Voids 3 0 # Bowel Movements 0 0 Result Diagram: 05/26/17 0814 05/25/17 1343 Objective Remarks awake and alert, mild icteresia lungs clear- no rales regular rhythm abdomen soft, flabby nontender extremities no edema neuro exam- non focal Procedures 05/23 EGDwith findings of Russell's and suspect dulafoy lesion 05/24 celiac and SMA angiography A/P Assessment and Plan This is a pleasant 61 y/o Male with a history of cirrhosis, end-stage liver disease, esophageal varices, portal gastropathy who came to ER after abdominal pain and vomit dark emesis, in ER vomited blood status post EGD on 05/23 with Diagnosis of 1. Upper GI bleed with Hematemesis during this hospitalization, with findings of Distal esophageal Russell esophagus, and grade 1-2 varices, Stomach no blood no ulcers, Mucosa does not appear Edematous duodenum normal Suspected by GI specialist Dulafalon lesion Interventional radiologist consulted by GI who performed a celiac and SMA angiography. GI also recommended to consider future TIPS 2. ESLD -follow-up as an outpatient. 3 Anemia as Chronic Iron deficiency anemia, worsen on admission due to acute GI bleeding and blood loss. Hemoglobin stabilized after EGD and CI SMA angiography. Will monitor hemoglobin. No signs of further active bleeding or hematoma emesis. 4. Gram negative sepsis- lactic acid level down- source possible- lung-+ infiltrates/ ascites history of sounds like Empyema vs SBP patient with leukopenia from cirrhosis Levaquin and Flagyl. IV fluid hydration. Will continue monitor closely. d/ patient-- check abdomen ultrasound for ascites- if significant tap, - abdomen is soft, mild fluid wave, CXR with decubitus films ID consult 6. DVT prophylaxisanticoagulation contraindicated due to GI bleed, thrombocytopenia, end-stage liver disease. DVT prophylaxis - chemoprophylaxis contraindicated due to gi bleed - SCDs Alex Gentile MD May 26, 2017 16:07
--- NOTE | 2017-05-26 17:47 | RADRPT ---
EXAM DATE/TIME: 05/26/2017 17:35 [facility] COMPARISON: CHEST SINGLE AP, May 23, 2017, 15:46. INDICATIONS : Short of breath. MEDICAL HISTORY : Hypertension. Cirrhosis. SURGICAL HISTORY : None. ENCOUNTER: Subsequent ACUITY: 1 day PAIN SCORE: 0/10 LOCATION: Bilateral chest. FINDINGS: There is moderate layering effusion on the right. Small layering effusion on the left. There is moder ate consolidative change the right lung base. Cardiac contour is grossly satisfactory and stable. CONCLUSION: Bilateral pleural effusions and consolidative changes, right worse than left Carlos Self MD on May 26, 2017 at 17:43 Board Certified Radiologist. This report was verified electronically.
[2017-05-26] MEDS ORDERED: PANTOPRAZOLE SODIUM 40 MG VIAL IV PUSH SCH (20:00)
[2017-05-26] MEDS: LORazepam 0.5 MG TAB PO PRN (21:16)
[2017-05-27] VITALS: BP 128/58; PULSE 88; RESP 16; TEMP 98.2; O2SAT 96
--- NOTE | 2017-05-27 00:09 | RADRPT ---
EXAM DATE/TIME: 05/26/2017 23:41 [facility] COMPARISON: No previous studies available for comparison. INDICATIONS : Ascites. MEDICAL HISTORY : Cirrhosis. Hypertension. Renal calculi. Esophageal varices. Thrombocytopenia. SURGICAL HISTORY : Right chest tubes. Paracentesis. Right elbow surgery. ENCOUNTER: Subsequent ACUITY: 1 day PAIN SCORE: 0/10 LOCATION: Abdomen. AREA EVALUATED: Abdominal quadrants. FINDINGS: Imaging of the abdomen and pelvis was performed to evaluate for ascites for possible paracentesis. No significant ascites was identified. There is an abundance of bowel gas CONCLUSION: No significant ascites is identified. Stuart Carlson MD on May 27, 2017 at 0:07 Board Certified Radiologist. This report was verified electronically.
[2017-05-27 04:00] VITALS: BP 102/55; PULSE 105; RESP 16; TEMP 98.6; O2SAT 96
[2017-05-27] MEDS: metroNIDAZOLE 500 MG TAB PO SCH ×3 (05:53→22:21)
[2017-05-27 08:00] VITALS: BP 102/55; PULSE 89; RESP 18; TEMP 98.1; O2SAT 96
--- NOTE | 2017-05-27 10:43 | HHI.GIFU ---
Subjective Remarks Pt reports that overall he is feeling well. He has not had a BM in 5 days but there is a BM recorded last night and on . +flatus Tolerating his diet Denies any nausea/vomiting. (Jenny Duckworth) Objective Vitals I&O Vital Signs Date Time Temp Pulse Resp B/P Pulse Ox O2 Delivery O2 Flow Rate FiO2 05/27/17 08:00 98.1 89 18 102/55 96 05/27/17 04:00 98.6 105 16 102/55 96 05/27/17 00:00 98.2 88 16 128/58 96 05/26/17 20:00 94 05/26/17 20:00 98.4 88 16 107/59 97 05/26/17 20:00 Room Air 05/26/17 16:00 98.5 75 20 135/60 94 05/26/17 12:00 97.9 77 20 115/55 97 I/O 05/26/17 05/26/17 05/26/17 05/27/17 05/27/17 05/27/17 07:00 15:00 23:00 07:00 15:00 23:00 Intake Total 912 ml 360 ml 600 ml 2215 ml Output Total 700 ml 650 ml 1150 ml Balance 912 ml -340 ml -50 ml 1065 ml Intake Oral 120 ml 360 ml 600 ml 360 ml IV Total 792 ml 1855 ml Output Urine Total 700 ml 650 ml 1150 ml # Voids 0 # Bowel Movements 0 1 0 Laboratory Date/Time Procedure Status Source Growth 05/25/17 14:05 Aerobic Blood Culture - Preliminary Resulted Blood Peripheral Escherichia Coli 05/25/17 14:05 Anaerobic Blood Culture - Preliminary Resulted Blood Peripheral NO GROWTH IN 1 DAY Imaging Last Impressions Chest X-Ray 05/26/17 0000 Signed Impressions: Service Date/Time: Friday, May 26, 2017 17:35 - CONCLUSION: Bilateral pleural effusions and consolidative changes, right worse than left Carlos Self MD Abdomen Ultrasound 05/26/17 0000 Signed Impressions: Service Date/Time: Friday, May 26, 2017 23:41 - CONCLUSION: No significant ascites is identified. Stuart Carlson MD Celiac/Hepatic Arteriogram 05/24/17 0000 Signed Impressions: Service Date/Time: Wednesday, May 24, 2017 14:23 - CONCLUSION: No suspicious arterial vascular findings. Some filling of left gastric varices on splenoportography. Carlos Self MD Physical Exam HEENT: Normocephalic; atraumatic; no jaundice. CHEST: CTA. CARDIAC: RRR. ABDOMEN: Soft, nondistended, nontender; hepatosplenomegaly; bowel sounds are present in all four quadrants. EXTREMITIES: No clubbing, cyanosis, or edema. SKIN: Normal; no rash; no jaundice. ENVIRONMENTAL PROGRAMS SPECIALIST: No focal deficits; alert and oriented times three. (Jenny Duckworth) Assessment and Plan Plan ASSESSMENT: - Recurrent upper GIB, hematemesis. S/P EGD (05/24/17)-----> Distal esophageal Barretts esophagus and grade 1-2 varices, Stomach: no blood. No ulcers. Mucosa does not appear edematous duodenum: normal. S/P Angiogram of the Celiac, Superior Mesenteric Artery (05/24/17)---> no hemorrhagic focus identified. No further bleeding. HH did drop to 7.8/22.3 on 05/26. Protonix 40mg IV daily. Feels good, no n/v/ pain. No active bleeding. - Anemia, acute blood loss. 7.8/22.3. S/P 6 units PRBC. - Coagulopathy, Thrombocytopenia. S/P 2 units FFP, 2 units Platelets. Plt 32, INR 1.7. - Liver cirrhosis. Established at [facility], [facility]aitlin [facility]les . T. Bili 5.4, AST 47, ALT 29, Alk Phosph 126. Abd US (05/26) with no significant ascites noted. - GERD, Russell's Esophagus. Protonix. - Positive blood culture, / with E. coli. Pt is on Levaquin and Flagyl. Repeat blood cultures ordered for today PLAN: - MARCO A - Colace BID, MOM PRN - Cont. Protonix 40mg change to po - Monitor HH - Transfuse as necessary - Supportive care - Further recommendations to follow based on results of above - Pt was seen and examined by myself and Dr. Yan and this note is written on her behalf (Jenny Duckworth) Physician Comments Patient seen and examined Agree with above Continue with current supportive care Monitor labs (Vish Yan MD) Jenny Duckworth May 27, 2017 10:43 Vish Yan MD May 27, 2017 19:56
[2017-05-27 11:53] LABS: MEAN CELL VOLUME 98.6 FL (80.0-100.0); MEAN CORPUSCULAR HEMOGLOBIN 34.8 PG (27.0-34.0); MEAN CORPUSCULAR HGB CONC 35.3 % (32.0-36.0); PLATELET COUNT 27 TH/MM3 (150-450); RED BLOOD COUNT 2.07 MIL/MM3 (4.50-5.90); RED CELL DISTRIBUTION WIDTH 18.5 % (11.6-17.2); WHITE BLOOD COUNT 1.7 TH/MM3 (4.0-11.0)
[2017-05-27 11:55] LABS: HEMO FLAGS AUTO DIFF
[2017-05-27 11:58] LABS: HEMATOCRIT 20.4 % (39.0-51.0)
[2017-05-27 12:00] VITALS: BP 111/52; PULSE 78; RESP 19; TEMP 98.5; O2SAT 95
[2017-05-27] MEDS ORDERED: MAGNESIUM HYDROXIDE SUSP 30 ML CUP PO PRN (12:00)
[2017-05-27 12:15] LABS: BICARBONATE 25.9 MEQ/L (21.0-32.0); POTASSIUM 3.7 MEQ/L (3.5-5.1)
--- NOTE | 2017-05-27 12:35 | HHI.PR ---
Subjective Remarks complains of constipation, no abdominal pain no fever or chills no cough Objective Vitals Vital Signs Date Time Temp Pulse Resp B/P Pulse Ox O2 Delivery O2 Flow Rate FiO2 05/27/17 12:00 98.5 78 19 111/52 95 05/27/17 08:00 98.1 89 18 102/55 96 05/27/17 04:00 98.6 105 16 102/55 96 05/27/17 00:00 98.2 88 16 128/58 96 05/26/17 20:00 94 05/26/17 20:00 98.4 88 16 107/59 97 05/26/17 20:00 Room Air 05/26/17 16:00 98.5 75 20 135/60 94 I/O 05/26/17 05/26/17 05/26/17 05/27/17 05/27/17 05/27/17 07:00 15:00 23:00 07:00 15:00 23:00 Intake Total 912 ml 360 ml 600 ml 2215 ml Output Total 700 ml 650 ml 1150 ml Balance 912 ml -340 ml -50 ml 1065 ml Intake Oral 120 ml 360 ml 600 ml 360 ml IV Total 792 ml 1855 ml Output Urine Total 700 ml 650 ml 1150 ml # Voids 0 # Bowel Movements 0 1 0 Result Diagram: 05/27/17 1137 05/27/17 1137 Objective Remarks awake and alert, mild icteresia lungs clear- no rales regular rhythm abdomen soft, flabby nontender extremities no edema neuro exam- non focal Procedures 05/23 EGDwith findings of Russell's and suspect deulafoy lesion 05/24 celiac and SMA angiography A/P Assessment and Plan This is a pleasant 61 y/o Male with a history of cirrhosis, end-stage liver disease, esophageal varices, portal gastropathy who came to ER after abdominal pain and vomit dark emesis, in ER vomited blood status post EGD on 05/23 with Diagnosis of Upper GI bleed with Hematemesis during this hospitalization, with findings of Distal esophageal Russell esophagus, and grade 1-2 varices, Stomach no blood no ulcers, Mucosa does not appear Edematous duodenum normal Suspected by GI specialist Dieulafoy lesion GI also recommended to consider future TIPS on PPI E coli- sepsis- lactic acid level down- source possible- lung-+ infiltrates/ ascites- history of sounds like Empyema and SBP in the past Bilateral pleural effusion on decubitus films right greater than left patient with leukopenia from cirrhosis US no significant ascites CXR with effusion-right worse than left - get a CT of the chest to quantify - if + will get a thoracentesis. on Levaquin and Flagyl. IV fluid hydration. Will continue monitor closely. ID consulted ESLD -follow-up as an outpatient.- no encephalopathy Pancytopenia secondary to liver disease WBC trending down now with sepsis Anemia as Chronic Iron deficiency anemia, worsen on admission due to acute GI bleeding and blood loss. Hemoglobin stabilized after EGD and CI SMA angiography. Will monitor hemoglobin. No signs of further active bleeding or hematoma Hematology consult- for recommendation ? Neupogen May need platelet tranfusion if CT thoracentesis is indicated if significant fluid on chest CT DVT prophylaxisanticoagulation contraindicated due to GI bleed, thrombocytopenia, end-stage liver disease. - chemoprophylaxis contraindicated due to gi bleed - SCDs - patient has been up and ambulating around Alex Gentile MD May 27, 2017 12:35
[2017-05-27 13:03] LABS: ACANTHOCYTES OCC (NORMAL); BANDS 21 % (0-6); BASOPHILS 1 % (0-2); BURR CELLS 1+ (NORMAL); EOSINOPHILS 2 % (0-4); NEUTROPHIL # MANUAL DIFF 1.4 TH/MM3 (1.8-7.7); PLATELET ESTIMATE SMEAR LOW (NORMAL); PLATELET MORPHOLOGY NORMAL (NORMAL); POLYS (SEG NEUTROPHILS) 60 % (16-70); SCAN/DIFF FINAL DIFF MANUAL; WBC DIFF SAMPLE 100
[2017-05-27] MEDS: DOCUSATE SODIUM 100 MG CAP PO SCH ×2 (13:06→22:21)
[2017-05-27] MEDS: LEVOFLOXACIN 750 MG PREMIX INJ 150 ML IV SCH (13:06)
[2017-05-27 16:00] VITALS: BP 107/51; PULSE 86; RESP 18; TEMP 98.2; O2SAT 99
--- NOTE | 2017-05-27 16:20 | RADRPT ---
EXAM DATE/TIME: 05/27/2017 15:22 [facility] COMPARISON: CT THORAX W/O CONTRAST, October 12, 2016, 19:14. INDICATIONS : Sepsis; evaluate for empyema. RADIATION DOSE: 9.96 CTDIvol (mGy) MEDICAL HISTORY : Cirrhosis. Pancreatitis. Cardiovascular disease Hypertension. SURGICAL HISTORY : None. ENCOUNTER: Initial ACUITY: 1 day PAIN SCALE: 0/10 LOCATION: Bilateral chest TECHNIQUE: Volumetric scanning of the chest was performed. Using automated exposure control and adjustment of t he mA and/or kV according to patient size, radiation dose was kept as low as reasonably achievable to obtain optimal diagnostic quality images. DICOM format image data is available electronically for r eview and comparison. FINDINGS: Compare September 2016. A large loculated effusion has developed in the right hemithorax measuring 13. 4 cm in AP oblique dimension and 8.6 cm in thickness. There is also a free flowing moderate sized lef t pleural effusion. There is some compressive atelectasis in both lungs. No pericardial effusion. No pathologically enlarged lymph nodes. Upper abdomen reveals liver cirrhosis. Calcified gallstone. Splenomegaly. Mild anasarca. CONCLUSION: 1. Large loculated right pleural effusion. Moderate-sized free-flowing left pleural effusion. Both ef fusions would be amenable to ultrasound or CT image guided drainage. 2. No pericardial effusion. No adenopathy. 3. Liver cirrhosis. Mild anasarca. Gallstones. Toño Glez MD on May 27, 2017 at 16:15 Board Certified Radiologist. This report was verified electronically.
--- NOTE | 2017-05-27 16:22 | HHI.IDPN ---
Note Infectious Disease Note Pt not in room. Gone to radiology for procedure. Chart reviewed briefly. No fevers AEROBIC BLOOD CULTURE Preliminary 05/27/17-4 POSITIVE FOR ESCHERICHIA COLI BY VERIGENE NUCLEIC ACID TEST. RESULTS OF NUCLEIC ACID TESTING ARE PRELIMINARY AND WILL BE VERIFIED BY CULTURE AND SUSCEPTIBILITY TESTS TO FOLLOW. NEGATIVE FOR THE FOLLOWING ORGANISMS: ACINETOBACTER SSP., CITROBACTER SSP., ENTEROBACTER SSP., PROTEUS SSP., KLEBSIELLA PNEUMONIA, KLEBSIELLA OXYTOCA, AND PSEUDOMONAS AERUGINOSA BY VERIGENE NUCLEIC ACID TEST. THE FOLLOWING RESISTANCE MARKERS WERE NOT DETECTED BY VERIGENE NUCLEIC ACID TEST: CTX-M, KPC, NDM, VIM, IMP, OXA. Continue Levaquin If overnight change in clinical condition broaden coverage to Cefepime IV. agree with repeat blood cultures IF any change in clinical condition or questions please call. I will attempt to see patient in am. Vital Signs Date Time Temp Pulse Resp B/P Pulse Ox O2 Delivery O2 Flow Rate FiO2 05/27/17 12:00 98.5 78 19 111/52 95 05/27/17 08:00 98.1 89 18 102/55 96 05/27/17 04:00 98.6 105 16 102/55 96 05/27/17 00:00 98.2 88 16 128/58 96 05/26/17 20:00 94 05/26/17 20:00 98.4 88 16 107/59 97 05/26/17 20:00 Room Air Laboratory Tests Test 05/27/17 11:37 White Blood Count 1.7 TH/MM3 Red Blood Count 2.07 MIL/MM3 Hemoglobin 7.2 GM/DL Hematocrit 20.4 % Mean Corpuscular Volume 98.6 FL Mean Corpuscular Hemoglobin 34.8 PG Mean Corpuscular Hemoglobin 35.3 % Concent Red Cell Distribution Width 18.5 % Platelet Count 27 TH/MM3 Mean Platelet Volume 8.7 FL Neutrophils (%) (Auto) % Lymphocytes (%) (Auto) % Monocytes (%) (Auto) % Eosinophils (%) (Auto) % Basophils (%) (Auto) % Neutrophils # (Auto) TH/MM3 Lymphocytes # (Auto) TH/MM3 Monocytes # (Auto) TH/MM3 Eosinophils # (Auto) TH/MM3 Basophils # (Auto) TH/MM3 CBC Comment AUTO DIFF Differential Total Cells 100 Counted Neutrophils % (Manual) 60 % Band Neutrophils % 21 % Lymphocytes % 11 % Monocytes % 5 % Eosinophils % 2 % Basophils % 1 % Neutrophils # (Manual) 1.4 TH/MM3 Differential Comment FINAL DIFF MANUAL Platelet Estimate LOW Platelet Morphology Comment NORMAL [place] Cells 1+ Acanthocytes OCC Sodium Level 142 MEQ/L Potassium Level 3.7 MEQ/L Chloride Level 109 MEQ/L Carbon Dioxide Level 25.9 MEQ/L Anion Gap 7 MEQ/L Blood Urea Nitrogen 11 MG/DL Creatinine 0.67 MG/DL Estimat Glomerular Filtration 121 ML/MIN Rate Random Glucose 236 MG/DL Calcium Level 7.5 MG/DL Barbara Kong MD May 27, 2017 16:22
--- NOTE | 2017-05-27 17:04 | MB ---
cc: ANTIONE MIRANDA M.D. DATE OF CONSULTATION: 05/27/2017. REASON FOR CONSULTATION: Oncology was consulted to render opinion regarding a patient with pancytopenia. ATTENDING PHYSICIAN: Dr. Gentile. HISTORY OF PRESENT ILLNESS The patient is a very pleasant 61-year-old Burm[place] male with history of alcohol-induced cirrhosis who presented to the hospital with hematemesis. He has had history of prior GI bleed and upper endoscopy in February showed esophageal varices. He had repeat upper endoscopy again May 24 which showed distal esophageal varices but no active bleeding. He also had an angiogram which did not show any other bleeding. He received two units of packed blood cell transfusion when his hemoglobin trended down to 7. Over the last few days, he has developed worsening pancytopenia. He also was found to have E-coli bacteremia. Hematology was consulted for further evaluation to see if the patient would need Neupogen. The patient stated that he feels well. He has no chest pain or palpitations. He denies any shortness of breath or cough. Denies any nausea or vomiting, abdominal pain. He has no recurring hematemesis. He denies any dysuria or hematuria. PAST MEDICAL HISTORY: 1. Cirrhosis, alcohol-induced. 2. Portal hypertension. 3. Esophageal varices. PAST SURGICAL HISTORY: 1. Multiple upper endoscopies. 2. Prior history of chest tube placement on the right side. He stated he had a hemothorax due to trauma. FAMILY HISTORY: Noncontributory. SOCIAL HISTORY: He quit alcohol one year ago. Denies tobacco use. Lives with his . ALLERGIES: NO KNOWN DRUG ALLERGIES. CURRENT MEDICATIONS: 1. Protonix. 2. Colace. 3. Flagyl. 4. Levaquin. REVIEW OF SYSTEMS: CONSTITUTIONAL: Negative. EYES: Negative. ENT: Negative. CARDIOVASCULAR: Negative. RESPIRATORY: Negative. GI: As above. : Denies any dysuria or hematuria. MUSCULOSKELETAL: Negative. HEMATOLOGIC: As above. ENDOCRINE: Negative. DERMATOLOGIC: Negative. PSYCHIATRIC: Negative. NEUROLOGIC: Negative. PHYSICAL EXAMINATION: VITAL SIGNS: Temperature 98.5, blood pressure 111/52, 02 saturation 95%. GENERAL: He is alert and oriented times three and in no acute distress. HEAD, EYES, EARS, NOSE, THROAT: Atraumatic, normocephalic. Pupils equal, round, reactive to light. Extraocular muscles intact. No scleral icterus. OROPHARYNX: Dry mucosa. No lesions. NECK: No thyromegaly. No palpable mass. LYMPHATIC: No palpable cervical, clavicular, axillary or inguinal lymph nodes. CARDIOVASCULAR: Regular S1-S2. No murmur. LUNGS: Decreased breath sounds at the lung bases. No wheezing or rhonchi. ABDOMEN: Abdomen soft, nontender. I could not palpate liver or spleen. EXTREMITIES: No cyanosis or clubbing or edema. SKIN: No rash or petechiae. NEUROLOGIC EXAM: Nonfocal. LABORATORY DATA: Reviewed. ASSESSMENT: Pancytopenia due to cirrhosis and splenomegaly. He had recent GI bleed and likely has consumed some of his platelets. He also had E coli bacteremia and sepsis could also cause a further drop in his blood count. He had received two units of packed red blood cells transfusion and his hemoglobin is 7.2 today. Clinically he is asymptomatic. He has no gross GI bleeding at this time. Recommend transfusion if his packed red blood cells trend below 7. We will consider giving him platelet transfusion also if he would need procedure or if he has any sign of active bleeding. His white cell have trended down to 1.7 but absolute neutrophil count is still 1400. Clinically he does not look septic. Will hold off on giving him Neupogen at this time. If he has worsening neutropenia or if he has significant sepsis, then we can consider giving him the Neupogen. 2. GI bleed. Upper endoscopy showed distal esophageal varices but no active bleeding. Angiogram also did not show any active bleeding. He has no recurrent hematemesis at this time. Recommend continue to monitor the hemoglobin and transfuse as needed. 3. Bacteremia. He is currently on antibiotic. His workup is ongoing. 4. Bilateral pleural effusion awaiting CT for further evaluation. 5. Cirrhosis due to alcohol. He has quit drinking alcohol. He is waiting to get on a transplant list. PLAN: 1. No indication to give Neupogen at this time. 2. Monitor hemoglobin and transfuse if he has any sign of active bleeding or hemoglobin trends below 7. 3. Can consider giving him platelet transfusion if he has any sign of active bleeding. Thank you, Dr. Gentile, for asking me to see this patient. MD BO Bernal/MARICEL /4:12 PM /4:51 PM MTDAlina
[2017-05-27 20:00] VITALS: BP 116/57; PULSE 82; PULSE 89; RESP 18; TEMP 97.8; O2SAT 97
[2017-05-27] MEDS: LORazepam 0.5 MG TAB PO PRN (22:21)
[2017-05-28] VITALS (9 sets, daily range): BP systolic 103–122; BP diastolic 53–59; PULSE 82–92; RESP 16; TEMP 97.6–98.8; O2SAT 94–99
[2017-05-28] MEDS: metroNIDAZOLE 500 MG TAB PO SCH ×3 (06:38→22:51)
--- NOTE | 2017-05-28 09:11 | HHI.PR ---
Subjective Remarks feels great, no fever or chills stools brown, no urinary symptoms, no cough no pain Objective Vitals Vital Signs Date Time Temp Pulse Resp B/P Pulse Ox O2 Delivery O2 Flow Rate FiO2 05/28/17 04:00 Room Air 05/28/17 04:00 98.1 86 16 104/53 96 05/28/17 00:00 97.6 86 16 103/58 97 05/28/17 00:00 Room Air 05/27/17 20:00 89 05/27/17 20:00 Room Air 05/27/17 20:00 97.8 82 18 116/57 97 05/27/17 16:00 98.2 86 18 107/51 99 05/27/17 12:00 98.5 78 19 111/52 95 I/O 05/27/17 05/27/17 05/27/17 05/28/17 05/28/17 05/28/17 07:00 15:00 23:00 07:00 15:00 23:00 Intake Total 2215 ml 600 ml 651 ml 997 ml Output Total 1150 ml 500 ml 650 ml 1600 ml Balance 1065 ml 100 ml 1 ml -603 ml Intake Oral 360 ml 600 ml 240 ml 600 ml IV Total 1855 ml 411 ml 397 ml Output Urine Total 1150 ml 500 ml 650 ml 1600 ml # Bowel Movements 0 0 1 0 Result Diagram: 05/27/17 1137 05/27/17 1137 Imaging Last Impressions Chest CT 05/27/17 0000 Signed Impressions: Service Date/Time: Saturday, May 27, 2017 15:22 - CONCLUSION: 1. Large loculated right pleural effusion. Moderate-sized free-flowing left pleural effusion. Both effusions would be amenable to ultrasound or CT image guided drainage. 2. No pericardial effusion. No adenopathy. 3. Liver cirrhosis. Mild anasarca. Gallstones. Toño Glez MD Chest X-Ray 05/26/17 0000 Signed Impressions: Service Date/Time: Friday, May 26, 2017 17:35 - CONCLUSION: Bilateral pleural effusions and consolidative changes, right worse than left Carlos Self MD Abdomen Ultrasound 05/26/17 0000 Signed Impressions: Service Date/Time: Friday, May 26, 2017 23:41 - CONCLUSION: No significant ascites is identified. Stuart Carlson MD Celiac/Hepatic Arteriogram 05/24/17 0000 Signed Impressions: Service Date/Time: Wednesday, May 24, 2017 14:23 - CONCLUSION: No suspicious arterial vascular findings. Some filling of left gastric varices on splenoportography. Carlos Self MD Objective Remarks awake and alert, mild icteresia lungs clear- no rales regular rhythm abdomen soft, flabby nontender extremities no edema neuro exam- non focal Procedures 05/23 EGDwith findings of Russell's and suspect deulafoy lesion 05/24 celiac and SMA angiography A/P Assessment and Plan This is a pleasant 61 y/o Male with a history of cirrhosis, end-stage liver disease, esophageal varices, portal gastropathy who came to ER after abdominal pain and vomit dark emesis, in ER vomited blood status post EGD on 05/23 with Diagnosis of Upper GI bleed with Hematemesis during this hospitalization, with findings of Distal esophageal Russell esophagus, and grade 1-2 varices, Stomach no blood no ulcers, Mucosa does not appear Edematous duodenum normal Suspected by GI specialist Dieulafoy lesion GI also recommended to consider future TIPS on PPI monitor H and H-no active bleeding E coli- sepsis- lactic acid level down- source possible- lung-+ infiltrates- clinically looks well Bilateral pleural effusion right greater than left- some Loculated patient with leukopenia from cirrhosis US no significant ascites CXR with effusion-right worse than left - get a CT of the chest to quantify - if + will get a thoracentesis. on Levaquin and Flagyl. IV fluid hydration. Will continue monitor closely. ID ff along with us- appreciated get Pulmonary consult- Dr. Irwin- will him will defer to him - re thoracentesis- currently not in any acute distress if plan tap- will need to get platelet transfusion ff repeat blood cultures ESLD -follow-up as an outpatient.- no encephalopathy Pancytopenia secondary to liver disease WBC trending down now with sepsis seen by Dr. Hernandez- appreciated ff CBC Chronic anemia, worsen on admission due to acute GI bleeding and blood loss. Hemoglobin stabilized after EGD and CI SMA angiography. Will monitor hemoglobin. No signs of further active bleeding or hematoma May need platelet tranfusion if CT thoracentesis is indicated if significant fluid on chest CT DVT prophylaxisanticoagulation contraindicated due to GI bleed, thrombocytopenia, end-stage liver disease. 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 Parisi as Alex Farnsworth MD May 28, 2017 09:10
[2017-05-28] MEDS: PANTOPRAZOLE SOD 40 MG DELAYED RELEASE TAB PO SCH (09:25)
[2017-05-28] MEDS: DOCUSATE SODIUM 100 MG CAP PO SCH ×2 (09:25→22:51)
[2017-05-28 10:24] LABS: AUTOMATED NEUTROPHIL # 2.8 TH/MM3 (1.8-7.7); BASOPHIL % 0.4 % (0.0-2.0); EOSINOPHIL # 0.2 TH/MM3 (0-0.4); EOSINOPHIL % 5.1 % (0.0-4.0); HEMATOCRIT 27.6 % (39.0-51.0); LYMPHOCYTE # 0.7 TH/MM3 (1.0-4.8); MEAN CELL VOLUME 99.2 FL (80.0-100.0); MEAN CORPUSCULAR HEMOGLOBIN 34.2 PG (27.0-34.0); MEAN CORPUSCULAR HGB CONC 34.5 % (32.0-36.0); MONO % 9.7 % (0.0-8.0); NEUT % 68.8 % (16.0-70.0); PLATELET COUNT 47 TH/MM3 (150-450); RED BLOOD COUNT 2.78 MIL/MM3 (4.50-5.90); RED CELL DISTRIBUTION WIDTH 18.3 % (11.6-17.2); WHITE BLOOD COUNT 4.1 TH/MM3 (4.0-11.0)
[2017-05-28 10:25] LABS: HEMO FLAGS AUTO DIFF
--- NOTE | 2017-05-28 10:25 | PD.ONC.PN ---
Subjective Subjective Remarks Afebrile overnight Wants to go home No complaints Objective Data Date Time Temp Pulse Resp B/P Pulse Ox O2 Delivery O2 Flow Rate FiO2 05/28/17 04:00 Room Air 05/28/17 04:00 98.1 86 16 104/53 96 05/28/17 00:00 97.6 86 16 103/58 97 05/28/17 00:00 Room Air 05/27/17 20:00 89 05/27/17 20:00 Room Air 05/27/17 20:00 97.8 82 18 116/57 97 05/27/17 16:00 98.2 86 18 107/51 99 05/27/17 12:00 98.5 78 19 111/52 95 05/28/17 05/28/17 05/28/17 07:00 15:00 23:00 Intake Total 997 ml Output Total 1600 ml Balance -603 ml Result Diagram: 05/27/17 1137 05/27/17 1137 Laboratory Results Laboratory Tests Test 05/27/17 11:37 White Blood Count 1.7 TH/MM3 Red Blood Count 2.07 MIL/MM3 Hemoglobin 7.2 GM/DL Hematocrit 20.4 % Mean Corpuscular Volume 98.6 FL Mean Corpuscular Hemoglobin 34.8 PG Mean Corpuscular Hemoglobin 35.3 % Concent Red Cell Distribution Width 18.5 % Platelet Count 27 TH/MM3 Mean Platelet Volume 8.7 FL Neutrophils (%) (Auto) % Lymphocytes (%) (Auto) % Monocytes (%) (Auto) % Eosinophils (%) (Auto) % Basophils (%) (Auto) % Neutrophils # (Auto) TH/MM3 Lymphocytes # (Auto) TH/MM3 Monocytes # (Auto) TH/MM3 Eosinophils # (Auto) TH/MM3 Basophils # (Auto) TH/MM3 CBC Comment AUTO DIFF Differential Total Cells 100 Counted Neutrophils % (Manual) 60 % Band Neutrophils % 21 % Lymphocytes % 11 % Monocytes % 5 % Eosinophils % 2 % Basophils % 1 % Neutrophils # (Manual) 1.4 TH/MM3 Differential Comment FINAL DIFF MANUAL Platelet Estimate LOW Platelet Morphology Comment NORMAL Khang Cells 1+ Acanthocytes OCC Sodium Level 142 MEQ/L Potassium Level 3.7 MEQ/L Chloride Level 109 MEQ/L Carbon Dioxide Level 25.9 MEQ/L Anion Gap 7 MEQ/L Blood Urea Nitrogen 11 MG/DL Creatinine 0.67 MG/DL Estimat Glomerular Filtration 121 ML/MIN Rate Random Glucose 236 MG/DL Calcium Level 7.5 MG/DL Culture Results Microbiology Date/Time Procedure Status Source Growth 05/25/17 14:00 Aerobic Blood Culture - Preliminary Resulted Blood Peripheral NO GROWTH IN 2 DAYS 05/25/17 14:00 Anaerobic Blood Culture - Preliminary Resulted Blood Peripheral NO GROWTH IN 2 DAYS 05/25/17 14:05 Aerobic Blood Culture - Preliminary Resulted Blood Peripheral Escherichia Coli 05/25/17 14:05 Anaerobic Blood Culture - Preliminary Resulted Blood Peripheral NO GROWTH IN 2 DAYS 05/27/17 11:37 Aerobic Blood Culture Received Blood Peripheral Pending 05/27/17 11:37 Anaerobic Blood Culture Received Blood Peripheral Pending 05/27/17 11:42 Aerobic Blood Culture Received Blood Peripheral Pending 05/27/17 11:42 Anaerobic Blood Culture Received Blood Peripheral Pending Administered Medications Medications (Trade) Dose Ordered Sig/Armida Route PRN Reason Start Time Stop Time Status Last Admin Dose Admin Levofloxacin/ Dextrose (Levaquin 750 Mg Premix Inj) 150 ml @ 100 mls/hr Q24H IV 05/25/17 13:00 05/27/17 13:06 Metronidazole (Flagyl) 500 mg Q8HR PO 05/25/17 14:00 05/28/17 06:38 Lorazepam (Ativan) 0.5 mg Q12H PRN PO ANXIETY 05/26/17 17:00 05/27/17 22:21 Docusate Sodium (Colace) 100 mg BID PO 05/27/17 12:00 05/28/17 09:25 Magnesium Hydroxide (Milk Of Magnesia Liq) 30 ml DAILY PRN PO constipation 05/27/17 12:00 05/27/17 13:06 Pantoprazole Sodium (Protonix) 40 mg DAILY PO 05/28/17 09:00 05/28/17 09:25 Objective Remarks GENERAL: Middle-aged male sitting up in chair on computer in no distress SKIN: Warm and dry. Few bruises to arms HEAD: Normocephalic. EYES: No injection or drainage. NECK: Supple, trachea midline. CARDIOVASCULAR: + S1/S2. RESPIRATORY: Clear anteriorly. Breathing unlabored. GASTROINTESTINAL: Abdomen soft, non-tender, nondistended. EXTREMITIES: Trace pedal edema MUSCULOSKELETAL: Adequate muscle tone. NEUROLOGICAL: No obvious focal deficit. Awake, alert, and oriented x3. Assessment/Plan Problem List: (1) Pancytopenia Status: Acute Plan: -- Improving -- Thrombocytopenia possibly due to consumption with recent GI bleeding. (2) GI bleed Status: Acute Plan: -- Upper endoscopy showed some mild esophageal varices but no active bleeding --CBC stable --GI following Assessment 61-year-old male with alcoholics cirrhosis admitted with GI bleeding. Hematology consulted for pancytopenia Plan 1. Monitor CBC; overall improving. 2. Hold off on growth stimulating factors. 3. Monitor for bleeding. Attending Statement The exam, history, and the medical decision-making described in the above note were completed with the assistance of the mid-level provider. I reviewed and agree with the findings presented. I attest that I had a [id number] encounter with the patient on the same day, and personally performed and documented my assessment and findings in the medical record. Feeling better. Blood counts trending up. Continue to monitor. Vera Corona May 28, 2017 10:25 Silvestre Hernandez MD May 28, 2017 13:01
[2017-05-28 10:32] LABS: INTERNATIONAL NORMALIZED RATIO 1.6 RATIO; PROTHROMBIN TIME - PATIENT 18.6 SEC (9.8-11.6)
[2017-05-28 10:50] LABS: BICARBONATE 28.7 MEQ/L (21.0-32.0); POTASSIUM 3.7 MEQ/L (3.5-5.1)
[2017-05-28 11:07] LABS: ACANTHOCYTES 1+ (NORMAL); BURR CELLS 1+ (NORMAL)
[2017-05-28 11:08] LABS: PLATELET ESTIMATE SMEAR LOW (NORMAL); PLATELET MORPHOLOGY NORMAL (NORMAL); SCAN/DIFF AUTO DIFF CONFIRMED
[2017-05-28] MEDS: LEVOFLOXACIN 750 MG PREMIX INJ 150 ML IV SCH (11:21)
[2017-05-28 16:35] LABS: HEMATOCRIT 23.3 % (39.0-51.0); MEAN CELL VOLUME 99.3 FL (80.0-100.0); MEAN CORPUSCULAR HEMOGLOBIN 34.5 PG (27.0-34.0); MEAN CORPUSCULAR HGB CONC 34.7 % (32.0-36.0); PLATELET COUNT 38 TH/MM3 (150-450); RED BLOOD COUNT 2.34 MIL/MM3 (4.50-5.90); RED CELL DISTRIBUTION WIDTH 18.7 % (11.6-17.2); WHITE BLOOD COUNT 2.8 TH/MM3 (4.0-11.0)
--- NOTE | 2017-05-28 16:35 | PD.ID.CON ---
History of Present Illness Service ID Consult Requested By Dr. Gentile Reason for Consult Evaluation and Mment of E.coli bacteremia and Right sided loculated effusion. Primary Care Physician Juan Manuel Parisi MD Diagnoses: History of Present Illness Mr. Ndiaye is a 61 y/o CM with PMHx of cirrhosis of the liver secondary to alcohol use and fatty liver. He has gastroesophageal varices and has had GI bleeds before.He reports having quit alcohol and now is on the [facility] transplant list. His MELD score was still not in the appropriate range and will be reevaluated for transplant again in Oct 2017 at time of his 1 yr anniversary of quitting alcohol. Review of medical records reveal the patient underwent thoracentesis and E.coli grew. At that time patient underwent evaluation by CTS and was seen by ID . Patient was eventually discharged on oral augmentin to complete a 4 week course. Patient is now admitted to the hospital for hematemesis. He reports a burping sensation and then threw up a cup of dark blood. Patient had a GI workup done including an EGD and Celiac angiogram. His GI bleed is now under control. CXR was abnormal so a CT Chest was ordered and it shows a right sided loculated pleural effusion and moderate size left side effusion as well. His CBC showed white blood cell count 4.1, hemoglobin 9.5, hematocrit 27.6, MCV 99, platelet count 47,000. INR is 1.6. Sodium 138, potassium 3.7, chloride 103, carbon dioxide 28, BUN 8, creatinine 0.59. Due to altered mental status and concern for sepsis blood cultures were sent on admission and these are positive for E.coli. Patient is started on Levaquin IV and Flagyl oral and clinically is ok. Patient had prior history of E.coli bacteremia and lung empyema in Sep 2016. Due to recurrent bacteremia will get an Endovascular workup including an ECHO to start off. ID consulted for evaluation and Mment of Sepsis, E.coli bacteremia and Right side pleural effusion. Review of Systems ROS Limitations: Poor Historian Constitutional: DENIES: Diaphoretic episodes, Fatigue, Fever, Weight gain, Weight loss, Chills, Dizziness, Change in appetite, Night Sweats Endocrine: DENIES: Heat/cold intolerance, Polydipsia, Polyuria, Polyphagia Eyes: DENIES: Blurred vision, Diplopia, Eye inflammation, Eye pain, Vision loss , Photosensitivity, Double Vision Ears, nose, mouth, throat: DENIES: Tinnitus, Hearing loss, Vertigo, Nasal discharge, Oral lesions, Throat pain, Hoarseness, Ear Pain, Running Nose, Epistaxis, Sinus Pain, Toothache, Odynophagia Respiratory: DENIES: Apneas, Cough, Snoring, Wheezing, Hemoptysis, Sputum production, Shortness of breath Cardiovascular: DENIES: Chest pain, Palpitations, Syncope, Dyspnea on Exertion , PND, Lower Extremity Edema, Orthopnea, Claudication Gastrointestinal: DENIES: Abdominal pain, Black stools, Bloody stools, Constipation, Diarrhea, Nausea, Vomiting, Difficulty Swallowing, Anorexia Genitourinary: DENIES: Sexual dysfunction, Urinary frequency, Urinary incontinence, Urgency, Hematuria, Dysuria, Nocturia, Penile Discharge, Testicular Pain, Testicular Swelling Musculoskeletal: DENIES: Joint pain, Muscle aches, Stiffness, Joint Swelling, Back pain, Neck pain Integumentary: DENIES: Abnormal pigmentation, Nail changes, Pruritus, Rash Hematologic/lymphatic: DENIES: Bruising, Lymphadenopathy Immunologic/allergic: DENIES: Eczema, Urticaria Neurologic: DENIES: Abnormal gait, Headache, Localized weakness, Paresthesias, Seizures, Speech Problems, Tremor, Poor Balance Psychiatric: DENIES: Anxiety, Confusion, Mood changes, Depression, Hallucinations, Agitation, Suicidal Ideation, Homicidal Ideation, Delusions Except as stated in HPI: all other systems reviewed are Neg Past Family Social History Allergies: Coded Allergies: No Known Allergies (Unverified , 05/23/17) Past Medical History Nephrolithiasis Thrombocytopenia Cirrhosis Fatty liver disease End-stage liver disease History of esophageal varices Portal gastropathy Portal hypertension Past Surgical History Prior right-sided chest tube for pleural effusions 08/2016 Right elbow bone spur removal Multiple prior EGDs Reported Medications Reported Meds & Active Scripts Active Reported Centrum Silver Adult 50+ (Multiple Vitamins W/ Minerals) 1 Tab Tab 1 Tab PO DAILY Calcium Citrate - Vit D Tablet (Calcium Citrate/Vitamin D3) 1 Each Tablet 1 Tab PO DAILY Vitamin A 8,000 Unit Capsule 8,000 Units PO DAILY Zinc (Zinc Gluconate) 50 Mg Tab 50 Mg PO DAILY Nadolol 40 Mg Tab 40 Mg PO DAILY Lasix (Furosemide) 20 Mg Tab 20 Mg PO DAILY Spironolactone 100 Mg Tab 100 Mg PO DAILY Active Ordered Medications Current Medications Medications (Trade) Dose Ordered Sig/Armida Route Start Time Stop Time Status Last Admin (NS Flush) 2 ml UNSCH PRN IVF 05/23/17 15:45 (Flagyl) 500 mg Q8HR PO 05/25/17 14:00 05/28/17 13:56 (Ativan) 0.5 mg Q12H PRN PO 05/26/17 17:00 05/27/17 22:21 (Colace) 100 mg BID PO 05/27/17 12:00 05/28/17 09:25 (Milk Of Nupur Torres) 30 ml DAILY PRN PO 05/27/17 12:00 05/27/17 13:06 Pantoprazole Sodium 40 mg 40 mg DAILY PO 05/28/17 09:00 05/28/17 09:25 (Rocephin Inj/NS Inj) 100 ml @ 200 mls/hr Q24H IV 05/28/17 21:00 Family History Mother from breast cancer in her 50s Father from heart failure age 63 Social History Tobacco: Denies Alcohol: Denies; quit drinking Illicit Drugs: Denies Physical Exam Vital Signs Vital Signs Date Time Temp Pulse Resp B/P Pulse Ox O2 Delivery O2 Flow Rate FiO2 05/28/17 15:00 98.3 82 16 112/53 97 05/28/17 12:07 98.3 82 16 112/53 97 05/28/17 07:00 Room Air 05/28/17 04:00 Room Air 05/28/17 04:00 98.1 86 16 104/53 96 05/28/17 00:00 97.6 86 16 103/58 97 05/28/17 00:00 Room Air 05/27/17 20:00 89 05/27/17 20:00 Room Air 05/27/17 20:00 97.8 82 18 116/57 97 Physical Exam GENERAL: This is a well-nourished, well-developed patient, in no apparent distress. SKIN: No rashes, ecchymoses or lesions. Cool and dry. HEAD: Atraumatic. Normocephalic. No temporal or scalp tenderness. EYES: Pupils equal round and reactive. Extraocular motions intact. No scleral icterus. No injection or drainage. ENT: Nose without bleeding, purulent drainage or septal hematoma. Throat without erythema, tonsillar hypertrophy or exudate. Uvula midline. Airway patent. NECK: Trachea midline. Supple, nontender, no meningeal signs. CARDIOVASCULAR: RRR. RESPIRATORY: Clear to auscultation. Breath sounds equal bilaterally. No wheezes , rales, or rhonchi. GASTROINTESTINAL: Abdomen soft, non-tender, nondistended. MUSCULOSKELETAL: Extremities without clubbing, cyanosis, or edema. NEUROLOGICAL: Awake and alert. Grossly non focal. Psych: cooperative IV line sites with no e.o infection. Laboratory Laboratory Tests Test 05/28/17 09:50 White Blood Count 4.1 Red Blood Count 2.78 Hemoglobin 9.5 Hematocrit 27.6 Mean Corpuscular Volume 99.2 Mean Corpuscular Hemoglobin 34.2 Mean Corpuscular Hemoglobin 34.5 Concent Red Cell Distribution Width 18.3 Platelet Count 47 Mean Platelet Volume 8.8 Neutrophils (%) (Auto) 68.8 Lymphocytes (%) (Auto) 16.0 Monocytes (%) (Auto) 9.7 Eosinophils (%) (Auto) 5.1 Basophils (%) (Auto) 0.4 Neutrophils # (Auto) 2.8 Lymphocytes # (Auto) 0.7 Monocytes # (Auto) 0.4 Eosinophils # (Auto) 0.2 Basophils # (Auto) 0.0 CBC Comment AUTO DIFF Differential Comment AUTO DIFF CONFIRMED Platelet Estimate LOW Platelet Morphology Comment NORMAL Ovalocytes Livingston Cells 1+ Acanthocytes 1+ Prothrombin Time 18.6 Prothromb Time International 1.6 Ratio Sodium Level 138 Potassium Level 3.7 Chloride Level 103 Carbon Dioxide Level 28.7 Anion Gap 6 Blood Urea Nitrogen 8 Creatinine 0.59 Estimat Glomerular Filtration 140 Rate Random Glucose 103 Calcium Level 8.3 Blood Type B POSITIVE Antibody Screen NEGATIVE Crossmatch Leukocyte-Reduced Red Blood Cells Blood Bank Comment Date/Time Procedure Status Source Growth 05/27/17 11:42 Aerobic Blood Culture - Preliminary Resulted Blood Peripheral NO GROWTH IN 1 DAY 05/27/17 11:42 Anaerobic Blood Culture - Preliminary Resulted Blood Peripheral NO GROWTH IN 1 DAY 05/25/17 14:05 Aerobic Blood Culture - Final Resulted Blood Peripheral Escherichia Coli 05/25/17 14:05 Anaerobic Blood Culture - Preliminary Resulted Blood Peripheral NO GROWTH IN 3 DAYS Result Diagram: 05/28/17 0950 05/28/17 0950 Imaging Last Impressions Chest CT 05/27/17 0000 Signed Impressions: Service Date/Time: Saturday, May 27, 2017 15:22 - CONCLUSION: 1. Large loculated right pleural effusion. Moderate-sized free-flowing left pleural effusion. Both effusions would be amenable to ultrasound or CT image guided drainage. 2. No pericardial effusion. No adenopathy. 3. Liver cirrhosis. Mild anasarca. Gallstones. Toño Glez MD Chest X-Ray 05/26/17 0000 Signed Impressions: Service Date/Time: Friday, May 26, 2017 17:35 - CONCLUSION: Bilateral pleural effusions and consolidative changes, right worse than left Carlos Self MD Abdomen Ultrasound 05/26/17 0000 Signed Impressions: Service Date/Time: Friday, May 26, 2017 23:41 - CONCLUSION: No significant ascites is identified. Stuart Carlson MD Celiac/Hepatic Arteriogram 05/24/17 0000 Signed Impressions: Service Date/Time: Wednesday, May 24, 2017 14:23 - CONCLUSION: No suspicious arterial vascular findings. Some filling of left gastric varices on splenoportography. Carlos Self MD Assessment and Plan Assessment and Plan Sepsis present on admission E.Coli bacteremia Prior h.o E.coli bacteremia and E.coli empyema in Sep 2016. s.p thoracentesis but no surgical intervention then. Liver Cirrhosis with Portal Gastropathy GI bleed on admission. Recs DC Levaquin Start Ceftriaxone IV (pending ECHO) Continue Flagyl oral Await thoracentesis Recommend CTS evaluation. Recurrent/Persistent Loculated effusion for decortication. Patient is a candidate for transplant and it is essential to address this infection and achieve source control. Follow cultures Follow clinically. Patient insists on being discharged home in next 24 hours. I explained to the patient that thoracentesis is planned. ECHO and endovascular workup is pending. I would like to discuss case with his grievance coordinator. I am not sure patient has informed them about these infections. Clearance of these infections is a pre requisite to transplantation. Critical thinking, decision making, review of records. Imaging reviewed. Barbara Kong MD May 28, 2017 16:35
[2017-05-28 16:37] LABS: REVIEW FLAG FINAL
[2017-05-28 16:38] LABS: INTERNATIONAL NORMALIZED RATIO 1.7 RATIO; PROTHROMBIN TIME - PATIENT 19.2 SEC (9.8-11.6)
[2017-05-28 17:44] LABS: INDIRECT BILIRUBIN 3.1 MG/DL (0.0-0.8)
--- NOTE | 2017-05-28 18:22 | MB ---
cc: MOOSE [facility]ANTA DATE OF CONSULTATION: 05/28/2017. REASON FOR CONSULTATION: Pleural effusion. REQUESTING PHYSICIAN: Dr. Gentile. HISTORY OF PRESENT ILLNESS: Mr. Ndiaye is a 61-year-old white male with cirrhosis of the liver secondary to alcohol use and fatty liver. He has gastroesophageal varices and has had bleeds before. He came to the hospital this time. He threw up blood. He had some burping sensation and it was found that he had one cup of blood mostly dark in color. The patient came to the hospital. He had a GI workup done. His was seen by gastroenterology and had endoscopy done. He also had abdominal angiography and celiac / hepatic arteriogram. He had a CT scan of the chest done which shows that he has large loculated right pleural effusion and moderate-sized free flowing left pleural effusion and liver cirrhosis. His CBC showed white blood cell count 4.1, hemoglobin 9.5, hematocrit 27.6, MCV 99, platelet count 47,000. INR is 1.6. Sodium 138, potassium 3.7, chloride 103, carbon dioxide 28, BUN 8, creatinine 0.59. PAST MEDICAL HISTORY: His past medical history is significant for: 1. History of cirrhosis of the liver. 2. GI bleed. 3. Gastroesophageal varices. 4. History of pleural effusions. He had a Pleurx catheter before. MEDICATIONS: He is currently takin. Protonix 40 milligrams a day. 2. Colace 100 milligrams twice a day. 3. Milk of magnesia. 4. Ativan 0.5 milligrams. 5. Flagyl 5 milligrams q. 8 hours. 6. Levaquin 750 milligrams a day. ALLERGIES: NO KNOWN DRUG ALLERGIES. SOCIAL HISTORY: He has a history of smoking in the past. He used to drink four to six beers which he quit. No drug use. He is now for seven months. He has three children from a previous marriage. 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 REVIEW OF SYSTEMS: He denies any weight loss. No headache or dizziness. No nausea or vomiting. No previous lung problems. PHYSICAL EXAMINATION: GENERAL: A moderately built and moderately nourished male in no acute distress. VITAL SIGNS: Blood pressure 104/56, heart rate 86, respirations 16, temperature 98.1. HEAD, EYES, EARS, NOSE, THROAT: Pupils are equal and reactive to light. Oral mucosa and nasal mucosa are normal. NECK: The neck is supple. JVP not raised. CHEST: He is dull to percussion and has decreased breath sounds at both bases. CARDIOVASCULAR: S1-S2 normal. ABDOMEN: Abdomen soft and nondistended. Bowel sounds are present. EXTREMITIES: No edema. IMPRESSION: 1. Bilateral pleural effusions, the right pleural effusion is larger and likely loculated, etiology to be determined. 2. He had history of pleural effusion and a PleurX catheter placed in the past. 3. GI bleed. 4. Esophageal varices. 5. Cirrhosis of the liver. 6. E coli bacteremia. PLAN: 1. Will get radiology for CT-guided thoracentesis of the right loculated pleural effusion. 2. Will examine the pleural fluid for routine culture, AFB, fungal cultures, cytology, protein, glucose, cell count and amylase. 3. He is on antibiotics Levaquin. 4. Monitor his H/H . Further treatment will depend on the course in the hospital. Thank you, Dr. Gentile, for this consult. MD JONI Olmedo/MARICEL /2:27 PM /6:09 PM MTDD
[2017-05-28] MEDS: cefTRIAXone INJ 2,000 MG in SODIUM CHLORIDE 0.9% INJ 100 ML IV SCH (22:51)
[2017-05-28] MEDS: LORazepam 0.5 MG TAB PO PRN (22:51)
[2017-05-29] VITALS (8 sets, daily range): BP systolic 107–115; BP diastolic 55–73; PULSE 75–122; RESP 16–18; TEMP 97.2–98.3; O2SAT 93–100
[2017-05-29] MEDS: metroNIDAZOLE 500 MG TAB PO SCH ×3 (05:48→21:35)
[2017-05-29 08:11] LABS: AUTOMATED NEUTROPHIL # 1.2 TH/MM3 (1.8-7.7); BASOPHIL % 0.6 % (0.0-2.0); EOSINOPHIL % 2.3 % (0.0-4.0); HEMATOCRIT 23.1 % (39.0-51.0); LYMPH % 20.4 % (9.0-44.0); LYMPHOCYTE # 0.4 TH/MM3 (1.0-4.8); MEAN CELL VOLUME 99.1 FL (80.0-100.0); MEAN CORPUSCULAR HEMOGLOBIN 34.7 PG (27.0-34.0); NEUT % 63.7 % (16.0-70.0); PLATELET COUNT 35 TH/MM3 (150-450); RED BLOOD COUNT 2.33 MIL/MM3 (4.50-5.90); RED CELL DISTRIBUTION WIDTH 18.4 % (11.6-17.2); WHITE BLOOD COUNT 1.9 TH/MM3 (4.0-11.0)
[2017-05-29 08:19] LABS: HEMO FLAGS AUTO DIFF
[2017-05-29] MEDS: DOCUSATE SODIUM 100 MG CAP PO SCH ×2 (08:21→20:56)
[2017-05-29] MEDS: PANTOPRAZOLE SOD 40 MG DELAYED RELEASE TAB PO SCH (08:21)
[2017-05-29 08:23] LABS: APTT (PATIENT) 36.7 SEC (24.3-30.1)
[2017-05-29 08:25] LABS: INTERNATIONAL NORMALIZED RATIO 1.7 RATIO; PROTHROMBIN TIME - PATIENT 19.4 SEC (9.8-11.6)
[2017-05-29 09:06] LABS: ACANTHOCYTES OCC (NORMAL); BANDS 13 % (0-6); EOSINOPHILS 2 % (0-4); KERATOCYTES OCC (NORMAL); NEUTROPHIL # MANUAL DIFF 1.4 TH/MM3 (1.8-7.7); POLYS (SEG NEUTROPHILS) 63 % (16-70); WBC DIFF SAMPLE 100
[2017-05-29 09:07] LABS: BURR CELLS 1+ (NORMAL); PLATELET ESTIMATE SMEAR LOW (NORMAL); PLATELET MORPHOLOGY NORMAL (NORMAL)
[2017-05-29 09:08] LABS: SCAN/DIFF FINAL DIFF MANUAL
--- NOTE | 2017-05-29 09:42 | PD.ONC.PN ---
Subjective Subjective Remarks Afebrile overnight. Patient resting in bed in nad. Eager to have his thoracentesis and hoping to be able to go home soon. Denies any pain or bleeding. Objective Data Date Time Temp Pulse Resp B/P Pulse Ox O2 Delivery O2 Flow Rate FiO2 05/29/17 08:00 98.1 80 17 108/58 97 05/29/17 04:55 97.2 75 16 107/56 93 05/29/17 04:55 Room Air 05/28/17 23:32 Room Air 05/28/17 23:32 98.8 89 16 122/59 95 05/28/17 21:55 Room Air 05/28/17 21:55 98.4 87 16 113/57 94 05/28/17 20:19 92 05/28/17 16:07 98.0 82 16 112/55 99 05/28/17 15:00 98.3 82 16 112/53 97 05/28/17 12:07 98.3 82 16 112/53 97 05/29/17 05/29/17 05/29/17 07:00 15:00 23:00 Intake Total 540 ml Output Total 1350 ml Balance -810 ml Result Diagram: 05/29/17 0645 05/28/17 0950 Laboratory Results Laboratory Tests Test 05/28/17 05/28/17 05/29/17 09:50 16:07 06:45 White Blood Count 4.1 TH/MM3 2.8 TH/MM3 1.9 TH/MM3 Red Blood Count 2.78 MIL/MM3 2.34 MIL/MM3 2.33 MIL/MM3 Hemoglobin 9.5 GM/DL 8.1 GM/DL 8.1 GM/DL Hematocrit 27.6 % 23.3 % 23.1 % Mean Corpuscular Volume 99.2 FL 99.3 FL 99.1 FL Mean Corpuscular Hemoglobin 34.2 PG 34.5 PG 34.7 PG Mean Corpuscular Hemoglobin 34.5 % 34.7 % 35.0 % Concent Red Cell Distribution Width 18.3 % 18.7 % 18.4 % Platelet Count 47 TH/MM3 38 TH/MM3 35 TH/MM3 Mean Platelet Volume 8.8 FL 8.8 FL 9.2 FL Neutrophils (%) (Auto) 68.8 % 63.7 % Lymphocytes (%) (Auto) 16.0 % 20.4 % Monocytes (%) (Auto) 9.7 % 13.0 % Eosinophils (%) (Auto) 5.1 % 2.3 % Basophils (%) (Auto) 0.4 % 0.6 % Neutrophils # (Auto) 2.8 TH/MM3 1.2 TH/MM3 Lymphocytes # (Auto) 0.7 TH/MM3 0.4 TH/MM3 Monocytes # (Auto) 0.4 TH/MM3 0.3 TH/MM3 Eosinophils # (Auto) 0.2 TH/MM3 0.0 TH/MM3 Basophils # (Auto) 0.0 TH/MM3 0.0 TH/MM3 CBC Comment AUTO DIFF AUTO DIFF Differential Comment AUTO DIFF FINAL DIFF CONFIRMED MANUAL Platelet Estimate LOW LOW Platelet Morphology Comment NORMAL NORMAL Ovalocytes Khang Cells 1+ 1+ Acanthocytes 1+ OCC Prothrombin Time 18.6 SEC 19.2 SEC 19.4 SEC Prothromb Time International 1.6 RATIO 1.7 RATIO 1.7 RATIO Ratio Sodium Level 138 MEQ/L Potassium Level 3.7 MEQ/L Chloride Level 103 MEQ/L Carbon Dioxide Level 28.7 MEQ/L Anion Gap 6 MEQ/L Blood Urea Nitrogen 8 MG/DL Creatinine 0.59 MG/DL Estimat Glomerular Filtration 140 ML/MIN Rate Random Glucose 103 MG/DL Calcium Level 8.3 MG/DL Total Bilirubin 5.0 MG/DL Direct Bilirubin 1.9 MG/DL Indirect Bilirubin 3.1 MG/DL Aspartate Amino Transf 43 U/L (AST/SGOT) Alanine Aminotransferase 31 U/L (ALT/SGPT) Alkaline Phosphatase 104 U/L Total Protein 6.8 GM/DL Albumin 2.5 GM/DL Blood Type B POSITIVE Antibody Screen NEGATIVE Crossmatch Leukocyte-Reduced Red Blood Cells Blood Bank Comment Differential Total Cells 100 Counted Neutrophils % (Manual) 63 % Band Neutrophils % 13 % Lymphocytes % 13 % Monocytes % 9 % Eosinophils % 2 % Neutrophils # (Manual) 1.4 TH/MM3 Keratocytes OCC Activated Partial 36.7 SEC Thromboplast Time Culture Results Microbiology Date/Time Procedure Status Source Growth 05/27/17 11:37 Aerobic Blood Culture - Preliminary Resulted Blood Peripheral NO GROWTH IN 1 DAY 05/27/17 11:37 Anaerobic Blood Culture - Preliminary Resulted Blood Peripheral NO GROWTH IN 1 DAY 05/27/17 11:42 Aerobic Blood Culture - Preliminary Resulted Blood Peripheral NO GROWTH IN 1 DAY 05/27/17 11:42 Anaerobic Blood Culture - Preliminary Resulted Blood Peripheral NO GROWTH IN 1 DAY Administered Medications Medications (Trade) Dose Ordered Sig/Armida Route PRN Reason Start Time Stop Time Status Last Admin Dose Admin Sodium Chloride (NS Flush) 2 ml UNSCH PRN IVF FLUSH AFTER USING IV ACCESS 05/23/17 15:45 05/28/17 22:51 Metronidazole (Flagyl) 500 mg Q8HR PO 05/25/17 14:00 05/29/17 05:48 Lorazepam (Ativan) 0.5 mg Q12H PRN PO ANXIETY 05/26/17 17:00 05/28/17 22:51 Docusate Sodium (Colace) 100 mg BID PO 05/27/17 12:00 05/29/17 08:21 Magnesium Hydroxide (Milk Of Magnanneliese Lieliane) 30 ml DAILY PRN PO constipation 05/27/17 12:00 05/27/17 13:06 Pantoprazole Sodium 40 mg 40 mg DAILY PO 05/28/17 09:00 05/29/17 08:21 Ceftriaxone Sodium/Sodium Chloride (Rocephin Inj/NS Inj) 100 ml @ 200 mls/hr Q24H IV 05/28/17 21:00 05/28/17 22:51 Objective Remarks GENERAL: Middle aged female, upright in bed in nad. SKIN: Warm and dry. HEAD: Normocephalic. EYES: No injection or drainage. NECK: Supple, trachea midline. CARDIOVASCULAR: Regular rate and rhythm RESPIRATORY: Breath sounds equal bilaterally. No accessory muscle use. GASTROINTESTINAL: Abdomen soft, non-tender, nondistended. EXTREMITIES: No cyanosis NEUROLOGICAL: awake and alert, normal speech. moving all extremities. Assessment/Plan Problem List: (1) Pancytopenia Status: Acute Plan: --platelet count 35K today --multifactorial due to cirrhosis + gi bleed (2) GI bleed Status: Acute Plan: -- Upper endoscopy showed some mild esophageal varices but no active bleeding --CBC stable --GI following Assessment 61-year-old male with alcoholics cirrhosis admitted with GI bleeding. Hematology consulted for pancytopenia Plan 1. thoracentesis today 2. monitor CBC Attending Statement The exam, history, and the medical decision-making described in the above note were completed with the assistance of the mid-level provider. I reviewed and agree with the findings presented. I attest that I had a [id number] encounter with the patient on the same day, and personally performed and documented my assessment and findings in the medical record. No new symptoms. Await thoracentesis. CBC relatively stable. Not neutropenic anymore. Continue to monitor. Kady Byers May 29, 2017 09:42 Silvestre Hernandez MD May 29, 2017 12:52
--- NOTE | 2017-05-29 10:57 | HHI.PR ---
Subjective Remarks no complains looking forward to getting thoracentesis done Objective Vitals Vital Signs Date Time Temp Pulse Resp B/P Pulse Ox O2 Delivery O2 Flow Rate FiO2 05/29/17 09:00 122 05/29/17 08:00 98.1 80 17 108/58 97 05/29/17 04:55 97.2 75 16 107/56 93 05/29/17 04:55 Room Air 05/28/17 23:32 Room Air 05/28/17 23:32 98.8 89 16 122/59 95 05/28/17 21:55 Room Air 05/28/17 21:55 98.4 87 16 113/57 94 05/28/17 20:19 92 05/28/17 16:07 98.0 82 16 112/55 99 05/28/17 15:00 98.3 82 16 112/53 97 05/28/17 12:07 98.3 82 16 112/53 97 I/O 05/28/17 05/28/17 05/28/17 05/29/17 05/29/17 05/29/17 07:00 15:00 23:00 07:00 15:00 23:00 Intake Total 997 ml 480 ml 1325 ml 540 ml Output Total 1600 ml 900 ml 900 ml 1350 ml Balance -603 ml -420 ml 425 ml -810 ml Intake Oral 600 ml 480 ml 960 ml 540 ml IV Total 397 ml 365 ml Output Urine Total 1600 ml 900 ml 900 ml 1350 ml # Bowel Movements 0 1 1 0 Result Diagram: 05/29/17 0645 05/28/17 0950 Imaging Last Impressions Chest CT 05/27/17 0000 Signed Impressions: Service Date/Time: Saturday, May 27, 2017 15:22 - CONCLUSION: 1. Large loculated right pleural effusion. Moderate-sized free-flowing left pleural effusion. Both effusions would be amenable to ultrasound or CT image guided drainage. 2. No pericardial effusion. No adenopathy. 3. Liver cirrhosis. Mild anasarca. Gallstones. Toño Glez MD Chest X-Ray 05/26/17 0000 Signed Impressions: Service Date/Time: Friday, May 26, 2017 17:35 - CONCLUSION: Bilateral pleural effusions and consolidative changes, right worse than left Carlos Self MD Abdomen Ultrasound 05/26/17 0000 Signed Impressions: Service Date/Time: Friday, May 26, 2017 23:41 - CONCLUSION: No significant ascites is identified. Stuart Carlson MD Celiac/Hepatic Arteriogram 05/24/17 0000 Signed Impressions: Service Date/Time: Wednesday, May 24, 2017 14:23 - CONCLUSION: No suspicious arterial vascular findings. Some filling of left gastric varices on splenoportography. Carlos Self MD Objective Remarks awake and alert, mild icteresia lungs no rales regular rhythm abdomen soft, flabby nontender extremities no edema neuro exam- non focal Procedures 05/23 EGDwith findings of Russell's and suspect deulafoy lesion 05/24 celiac and SMA angiography A/P Assessment and Plan This is a pleasant 61 y/o Male with a history of cirrhosis, end-stage liver disease, esophageal varices, portal gastropathy who came to ER after abdominal pain and vomit dark emesis, in ER vomited blood status post EGD on 05/23 with Diagnosis of E coli- sepsis- lactic acid level down- source possible- lung-+ infiltrates- clinically looks well Bilateral pleural effusion right greater than left- some Loculated going for thoracentesiss today- may need chest tube possibly US no significant ascites ID ff along with us- appreciated ab switched to Rocephin 05/[address] Kong ff Echo ordered- pending S/P Upper GI bleed with Hematemesis during this hospitalization, with findings of Distal esophageal Russell esophagus, and grade 1-2 varices,no ulcers, - Resolved Mucosa does not appear Edematous duodenum normal Suspected by GI specialist Dieulafoy lesion GI also recommended to consider future TIPS on PPI monitor H and H-no active bleeding ESLD -follow-up as an outpatient.- no encephalopathy. Per patient on transplant list Pancytopenia secondary to liver disease WBC trending down now with sepsis seen by Dr. Hernandez- appreciated ff CBC Chronic anemia, worsen on admission due to acute GI bleeding and blood loss. Hemoglobin stabilized after EGD and CI SMA angiography. Will monitor hemoglobin. No signs of further active bleeding or hematoma May need platelet tranfusion if CT thoracentesis is indicated if significant fluid on chest CT DVT prophylaxisanticoagulation contraindicated due to GI bleed, thrombocytopenia, end-stage liver disease. 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 Parisi as Alex Farnsworth MD May 29, 2017 10:57
--- NOTE | 2017-05-29 12:15 | RADRPT ---
EXAM DATE/TIME: 05/29/2017 11:17 INDICATIONS : Right thorocentesis MEDICATION(S): 1.) 50 mcg fentanyl (Sublimaze) IV DEVICE(S): 1.) 6 Fr Dbtc-M-abmkgkgd FLUID: Total volume of 1275 cc of clear, red fluid was removed. Fluid was sent for laboratory ordered studies. MEDICAL HISTORY : Cirrhosis. SURGICAL HISTORY : None. ENCOUNTER: Initial ACUITY: 1 day PAIN SCORE: 0/10 LOCATION: Right chest PROCEDURE: 1. CT guided right thoracentesis. The site was prepped in sterile fashion. Full sterile technique was used, including cap, mask, steri le gloves and gown and a large sterile sheet. Hand hygiene and 2% chlorhexidine and/or betadine/alco hol prep was utilized per protocol for cutaneous antisepsis. The skin and subcutaneous tissues were infiltrated with local anesthetic solution. Using automated exposure control and adjustment of the mA and/or kV according to patient size, radiation dose was kept as low as reasonably achievable to obta in optimal diagnostic quality images. DICOM format image data is available electronically for review and comparison. Under CT guidance 6-Swedish catheter was placed in the pleural space and 1275 cc of dark clear fluid w ere removed and sent for studies. There is good extension of the right lung. The patient tolerated the procedure well and there were no complications. EKG and oximetry remained s table throughout the procedure. The patient was sent to recovery in stable condition. CONCLUSION: Uncomplicated CT-guided thoracentesis. There is good reexpansion of the right lung. Hamlet Nicholson MD FACR on May 29, 2017 at 12:12 Board Certified Radiologist. This report was verified electronically.
--- NOTE | 2017-05-29 12:43 | RADRPT ---
EXAM DATE/TIME: 05/29/2017 12:25 [place] COMPARISON: No previous studies available for comparison. INDICATIONS : Post right side thoracentesis, no pain, no shortness of breath MEDICAL HISTORY : Cirrhosis. SURGICAL HISTORY : None. ENCOUNTER: Subsequent ACUITY: 1 day PAIN SCORE: 0/10 LOCATION: Right chest FINDINGS: There is no pneumothorax following thoracentesis. Minimal fluid persists on the left side The cardio-mediastinal contours and bronchopulmonary markings are unremarkable for an expiratory exam . Osseous structures are intact. CONCLUSION: Negative for pneumothorax following right thoracentesis. Hamlet Nicholson MD FACR on May 29, 2017 at 12:39 Board Certified Radiologist. This report was verified electronically.
[2017-05-29 13:39] LABS: PLEURAL FLUID LYMPHS 15 %
--- NOTE | 2017-05-29 14:56 | HHI.GIFU ---
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 No complaints, s/p thoracentesis. Objective Vitals I&O Vital Signs Date Time Temp Pulse Resp B/P Pulse Ox O2 Delivery O2 Flow Rate FiO2 05/29/17 14:00 97.7 105 17 115/65 99 05/29/17 12:10 94 18 111/73 95 05/29/17 11:55 98.3 94 18 107/59 97 05/29/17 09:00 122 05/29/17 08:00 98.1 80 17 108/58 97 05/29/17 07:00 Room Air 05/29/17 04:55 97.2 75 16 107/56 93 05/29/17 04:55 Room Air 05/28/17 23:32 Room Air 05/28/17 23:32 98.8 89 16 122/59 95 05/28/17 21:55 Room Air 05/28/17 21:55 98.4 87 16 113/57 94 05/28/17 20:19 92 05/28/17 16:07 98.0 82 16 112/55 99 05/28/17 15:00 98.3 82 16 112/53 97 I/O 05/28/17 05/28/17 05/28/17 05/29/17 05/29/17 05/29/17 07:00 15:00 23:00 07:00 15:00 23:00 Intake Total 997 ml 480 ml 1325 ml 540 ml Output Total 1600 ml 900 ml 900 ml 1350 ml Balance -603 ml -420 ml 425 ml -810 ml Intake Oral 600 ml 480 ml 960 ml 540 ml IV Total 397 ml 365 ml Output Urine Total 1600 ml 900 ml 900 ml 1350 ml # Bowel Movements 0 1 1 0 Laboratory Laboratory Tests Test 05/28/17 05/29/17 05/29/17 16:07 06:45 11:30 White Blood Count 2.8 1.9 Red Blood Count 2.34 2.33 Hemoglobin 8.1 8.1 Hematocrit 23.3 23.1 Mean Corpuscular Volume 99.3 99.1 Mean Corpuscular Hemoglobin 34.5 34.7 Mean Corpuscular Hemoglobin 34.7 35.0 Concent Red Cell Distribution Width 18.7 18.4 Platelet Count 38 35 Mean Platelet Volume 8.8 9.2 Prothrombin Time 19.2 19.4 Prothromb Time International 1.7 1.7 Ratio Neutrophils (%) (Auto) 63.7 Lymphocytes (%) (Auto) 20.4 Monocytes (%) (Auto) 13.0 Eosinophils (%) (Auto) 2.3 Basophils (%) (Auto) 0.6 Neutrophils # (Auto) 1.2 Lymphocytes # (Auto) 0.4 Monocytes # (Auto) 0.3 Eosinophils # (Auto) 0.0 Basophils # (Auto) 0.0 CBC Comment AUTO DIFF Differential Total Cells 100 Counted Neutrophils % (Manual) 63 Band Neutrophils % 13 Lymphocytes % 13 Monocytes % 9 Eosinophils % 2 Neutrophils # (Manual) 1.4 Differential Comment FINAL DIFF MANUAL Platelet Estimate LOW Platelet Morphology Comment NORMAL Khang Cells 1+ Acanthocytes OCC Keratocytes OCC Activated Partial 36.7 Thromboplast Time Hepatitis A IgM Antibody NEGATIVE Hepatitis B Surface Antigen NEGATIVE Hepatitis B Core IgM Antibody NEGATIVE Hepatitis C Antibody NEGATIVE HIV (1&2) Antibody NEGATIVE Pleural Fluid pH 8.0 Pleural Fluid WBC 161 Pleural Fluid RBC 19380 Pleural Fluid Neutrophils 1 Pleural Fluid Lymphocytes 15 Pleural Fluid Monocytes 34 Pleural Fluid Histiocytes 46 Pleural Fluid Mesothelial 4 Cells Date/Time Procedure Status Source Growth 05/29/17 11:30 Gram Stain Received Fluid Pleural Fluid Pending 05/29/17 11:30 Body Fluid Culture Received Fluid Pleural Fluid Pending 05/29/17 11:30 Fungal Smear Received Fluid Pleural Fluid Pending 05/29/17 11:30 Fungal Culture Received Fluid Pleural Fluid Pending 05/29/17 11:30 Acid Fast Stain Received Fluid Pleural Fluid Pending 05/29/17 11:30 Mycobacterial Culture Received Fluid Pleural Fluid Pending 05/27/17 11:42 Aerobic Blood Culture - Preliminary Resulted Blood Peripheral NO GROWTH IN 2 DAYS 05/27/17 11:42 Anaerobic Blood Culture - Preliminary Resulted Blood Peripheral NO GROWTH IN 2 DAYS 05/25/17 14:05 Aerobic Blood Culture - Final Resulted Blood Peripheral Escherichia Coli 05/25/17 14:05 Anaerobic Blood Culture - Preliminary Resulted Blood Peripheral NO GROWTH IN 4 DAYS Imaging Last Impressions Thoracentesis 05/29/17 0600 Signed Impressions: Service Date/Time: Monday, May 29, 2017 11:17 - CONCLUSION: Uncomplicated CT-guided thoracentesis. There is good reexpansion of the right lung. Hamlet Nicholson MD FACR Chest X-Ray 05/29/17 0000 Signed Impressions: Service Date/Time: Monday, May 29, 2017 12:25 - CONCLUSION: Negative for pneumothorax following right thoracentesis. Hamlet Nicholson MD FACR Chest CT 05/27/17 0000 Signed Impressions: Service Date/Time: Saturday, May 27, 2017 15:22 - CONCLUSION: 1. Large loculated right pleural effusion. Moderate-sized free-flowing left pleural effusion. Both effusions would be amenable to ultrasound or CT image guided drainage. 2. No pericardial effusion. No adenopathy. 3. Liver cirrhosis. Mild anasarca. Gallstones. Toño Glez MD Abdomen Ultrasound 05/26/17 0000 Signed Impressions: Service Date/Time: Friday, May 26, 2017 23:41 - CONCLUSION: No significant ascites is identified. Stuart Carlson MD Celiac/Hepatic Arteriogram 05/24/17 0000 Signed Impressions: Service Date/Time: Wednesday, May 24, 2017 14:23 - CONCLUSION: No suspicious arterial vascular findings. Some filling of left gastric varices on splenoportography. Carlos Self MD Physical Exam HEENT: Normocephalic; atraumatic; no jaundice. CHEST: CTA. CARDIAC: RRR. ABDOMEN: Soft, nondistended, nontender; hepatosplenomegaly; bowel sounds are present in all four quadrants. EXTREMITIES: No clubbing, cyanosis, or edema. SKIN: Normal; no rash; no jaundice. SMOKE EATER: No focal deficits; alert and oriented times three. Assessment and Plan Plan ASSESSMENT: - Recurrent upper GIB, hematemesis. S/P EGD (05/24/17)-----> Distal esophageal Barretts esophagus and grade 1-2 varices, Stomach: no blood. No ulcers. Mucosa does not appear edematous duodenum: normal. S/P Angiogram of the Celiac, Superior Mesenteric Artery (05/24/17)---> no hemorrhagic focus identified. No further bleeding. HH did drop to 7.8/22.3 on 05/26. Protonix 40mg PO daily. Feels good, no n/v/ pain. No active bleeding. - Anemia, acute blood loss- stable. S/P 6 units PRBC. - Coagulopathy, Thrombocytopenia. S/P 2 units FFP, 2 units Platelets. Plt 35, INR 1.7. - Liver cirrhosis. Established at [facility], Caitlin Styles . T. Bili 5.0, AST 43, ALT 31, Alk Phosph 104. Abd US (05/26) with no significant ascites noted. - GERD, Russell's Esophagus. Protonix. - Positive blood culture, 11/30 with E. coli. Pt is on ancef and Flagyl. Repeat blood cultures ordered for today PLAN: - MARCO A - Colace BID, MOM PRN - Cont. Protonix 40mg change to po - Monitor HH - Transfuse as necessary - Supportive care - Further recommendations to follow based on results of above - Pt was seen and examined by myself and Dr. Mosley and this note is written on her behalf Adriana Ham May 29, 2017 14:56
--- NOTE | 2017-05-29 16:21 | HHI.IDPN ---
Subjective Subjective Remarks Mr. Ndiaye is a 61 y/o CM with PMHx of cirrhosis of the liver secondary to alcohol use and fatty liver. He has gastroesophageal varices and has had GI bleeds before.He reports having quit alcohol and now is on the [facility] transplant list. His MELD score was still not in the appropriate range and will be reevaluated for transplant again in Oct 2017 at time of his 1 yr anniversary of quitting alcohol. Review of medical records reveal the patient underwent thoracentesis and E.coli grew. At that time patient underwent evaluation by CTS and was seen by ID . Patient was eventually discharged on oral augmentin to complete a 4 week course. Patient is now admitted to the hospital for hematemesis. He reports a burping sensation and then threw up a cup of dark blood. Patient had a GI workup done including an EGD and Celiac angiogram. His GI bleed is now under control. CXR was abnormal so a CT Chest was ordered and it shows a right sided loculated pleural effusion and moderate size left side effusion as well. His CBC showed white blood cell count 4.1, hemoglobin 9.5, hematocrit 27.6, MCV 99, platelet count 47,000. INR is 1.6. Sodium 138, potassium 3.7, chloride 103, carbon dioxide 28, BUN 8, creatinine 0.59. Due to altered mental status and concern for sepsis blood cultures were sent on admission and these are positive for E.coli. Patient is started on Levaquin IV and Flagyl oral and clinically is ok. Patient had prior history of E.coli bacteremia and lung empyema in Sep 2016. Due to recurrent bacteremia will get an Endovascular workup including an ECHO to start off. ID consulted for evaluation and Mment of Sepsis, E.coli bacteremia and Right side pleural effusion. Overnight events reviewed. No fever No rash No diarrhea Underwent thoracentesis today and tolerated the procedure well. Antibiotics Ceftriaxone IV Flagyl oral Lines Line sites with no evidence of infection. Past Medical History Reviewed. Allergies: Coded Allergies: No Known Allergies (Unverified , 05/23/17) Objective . Vital Signs Date Time Temp Pulse Resp B/P Pulse Ox O2 Delivery O2 Flow Rate FiO2 05/29/17 16:00 98.1 103 18 109/63 99 05/29/17 14:00 97.7 105 17 115/65 99 05/29/17 12:10 94 18 111/73 95 05/29/17 11:55 98.3 94 18 107/59 97 05/29/17 09:00 122 05/29/17 08:00 98.1 80 17 108/58 97 05/29/17 07:00 Room Air 05/29/17 04:55 97.2 75 16 107/56 93 05/29/17 04:55 Room Air 05/28/17 23:32 Room Air 05/28/17 23:32 98.8 89 16 122/59 95 05/28/17 21:55 Room Air 05/28/17 21:55 98.4 87 16 113/57 94 05/28/17 20:19 92 05/28/17 05/28/17 05/29/17 15:00 23:00 07:00 Intake Total 480 ml 1325 ml 540 ml Output Total 900 ml 900 ml 1350 ml Balance -420 ml 425 ml -810 ml Intake Oral 480 ml 960 ml 540 ml IV Total 365 ml Output Urine Total 900 ml 900 ml 1350 ml # Bowel Movements 1 1 0 . Laboratory Tests Test 05/28/17 05/28/17 05/29/17 09:50 16:07 06:45 White Blood Count 4.1 TH/MM3 2.8 TH/MM3 1.9 TH/MM3 Red Blood Count 2.78 MIL/MM3 2.34 MIL/MM3 2.33 MIL/MM3 Hemoglobin 9.5 GM/DL 8.1 GM/DL 8.1 GM/DL Hematocrit 27.6 % 23.3 % 23.1 % Mean Corpuscular Volume 99.2 FL 99.3 FL 99.1 FL Mean Corpuscular Hemoglobin 34.2 PG 34.5 PG 34.7 PG Mean Corpuscular Hemoglobin 34.5 % 34.7 % 35.0 % Concent Red Cell Distribution Width 18.3 % 18.7 % 18.4 % Platelet Count 47 TH/MM3 38 TH/MM3 35 TH/MM3 Mean Platelet Volume 8.8 FL 8.8 FL 9.2 FL Neutrophils (%) (Auto) 68.8 % 63.7 % Lymphocytes (%) (Auto) 16.0 % 20.4 % Monocytes (%) (Auto) 9.7 % 13.0 % Eosinophils (%) (Auto) 5.1 % 2.3 % Basophils (%) (Auto) 0.4 % 0.6 % Neutrophils # (Auto) 2.8 TH/MM3 1.2 TH/MM3 Lymphocytes # (Auto) 0.7 TH/MM3 0.4 TH/MM3 Monocytes # (Auto) 0.4 TH/MM3 0.3 TH/MM3 Eosinophils # (Auto) 0.2 TH/MM3 0.0 TH/MM3 Basophils # (Auto) 0.0 TH/MM3 0.0 TH/MM3 CBC Comment AUTO DIFF AUTO DIFF Differential Comment AUTO DIFF FINAL DIFF CONFIRMED MANUAL Platelet Estimate LOW LOW Platelet Morphology Comment NORMAL NORMAL Ovalocytes Khang Cells 1+ 1+ Acanthocytes 1+ OCC Differential Total Cells 100 Counted Neutrophils % (Manual) 63 % Band Neutrophils % 13 % Lymphocytes % 13 % Monocytes % 9 % Eosinophils % 2 % Neutrophils # (Manual) 1.4 TH/MM3 Keratocytes OCC Laboratory Tests Test 05/28/17 09:50 Sodium Level 138 MEQ/L Potassium Level 3.7 MEQ/L Chloride Level 103 MEQ/L Carbon Dioxide Level 28.7 MEQ/L Anion Gap 6 MEQ/L Blood Urea Nitrogen 8 MG/DL Creatinine 0.59 MG/DL Estimat Glomerular Filtration 140 ML/MIN Rate Random Glucose 103 MG/DL Calcium Level 8.3 MG/DL Total Bilirubin 5.0 MG/DL Direct Bilirubin 1.9 MG/DL Indirect Bilirubin 3.1 MG/DL Aspartate Amino Transf 43 U/L (AST/SGOT) Alanine Aminotransferase 31 U/L (ALT/SGPT) Alkaline Phosphatase 104 U/L Total Protein 6.8 GM/DL Albumin 2.5 GM/DL Microbiology Date/Time Procedure Status Source Growth 05/27/17 11:37 Aerobic Blood Culture - Preliminary Resulted Blood Peripheral NO GROWTH IN 2 DAYS 05/27/17 11:37 Anaerobic Blood Culture - Preliminary Resulted Blood Peripheral NO GROWTH IN 2 DAYS 05/27/17 11:42 Aerobic Blood Culture - Preliminary Resulted Blood Peripheral NO GROWTH IN 2 DAYS 05/27/17 11:42 Anaerobic Blood Culture - Preliminary Resulted Blood Peripheral NO GROWTH IN 2 DAYS 05/29/17 11:30 Gram Stain Received Fluid Pleural Fluid Pending 05/29/17 11:30 Body Fluid Culture Received Fluid Pleural Fluid Pending 05/29/17 11:30 Acid Fast Stain Received Fluid Pleural Fluid Pending 05/29/17 11:30 Mycobacterial Culture Received Fluid Pleural Fluid Pending 05/29/17 11:30 Fungal Smear Received Fluid Pleural Fluid Pending 05/29/17 11:30 Fungal Culture Received Fluid Pleural Fluid Pending Imaging Last Impressions Thoracentesis 05/29/17 0600 Signed Impressions: Service Date/Time: Monday, May 29, 2017 11:17 - CONCLUSION: Uncomplicated CT-guided thoracentesis. There is good reexpansion of the right lung. Hamlet Nicholson MD FACR Chest X-Ray 05/29/17 0000 Signed Impressions: Service Date/Time: Monday, May 29, 2017 12:25 - CONCLUSION: Negative for pneumothorax following right thoracentesis. Hamlet Nicholson MD FACR Chest CT 05/27/17 0000 Signed Impressions: Service Date/Time: Saturday, May 27, 2017 15:22 - CONCLUSION: 1. Large loculated right pleural effusion. Moderate-sized free-flowing left pleural effusion. Both effusions would be amenable to ultrasound or CT image guided drainage. 2. No pericardial effusion. No adenopathy. 3. Liver cirrhosis. Mild anasarca. Gallstones. Toño Glez MD Abdomen Ultrasound 05/26/17 0000 Signed Impressions: Service Date/Time: Friday, May 26, 2017 23:41 - CONCLUSION: No significant ascites is identified. Stuart Carlson MD Celiac/Hepatic Arteriogram 05/24/17 0000 Signed Impressions: Service Date/Time: Wednesday, May 24, 2017 14:23 - CONCLUSION: No suspicious arterial vascular findings. Some filling of left gastric varices on splenoportography. Carlos Self MD Physical Exam GENERAL: This is a well-nourished, well-developed patient, in no apparent distress. SKIN: No rashes, ecchymoses or lesions. Cool and dry. HEAD: Atraumatic. Normocephalic. No temporal or scalp tenderness. EYES: Pupils equal round and reactive. Extraocular motions intact. No scleral icterus. No injection or drainage. ENT: Nose without bleeding, purulent drainage or septal hematoma. Throat without erythema, tonsillar hypertrophy or exudate. Uvula midline. Airway patent. NECK: Trachea midline. Supple, nontender, no meningeal signs. CARDIOVASCULAR: RRR. RESPIRATORY: Clear to auscultation. Breath sounds equal bilaterally. No wheezes , rales, or rhonchi. GASTROINTESTINAL: Abdomen soft, non-tender, nondistended. MUSCULOSKELETAL: Extremities without clubbing, cyanosis, or edema. NEUROLOGICAL: Awake and alert. Grossly non focal. Psych: cooperative IV line sites with no e.o infection. Assessment & Plan Remarks Sepsis present on admission E.Coli bacteremia Prior h.o E.coli bacteremia and E.coli empyema in Sep 2016. s.p thoracentesis but no surgical intervention then. Liver Cirrhosis with Portal Gastropathy GI bleed on admission. Recs Continue ceftriaxone IV pending 2-D echo results. Continue Flagyl oral Await thoracentesis cultures. Recommend CTS evaluation. Recurrent/Persistent Loculated effusion for decortication. Patient is a candidate for transplant and it is essential to address this infection and achieve source control. Follow cultures Follow clinically. Spent significant amount of time explaining to the patient need for continuing in hospital stay. Discussed in the presence of patient's nurse Bo. Barbara Kong MD May 29, 2017 16:21
--- NOTE | 2017-05-29 20:24 | HHI.PR ---
Subjective Remarks [address] effusion.GIB,Cirrhosis had TC Denies sob no fever Objective Vital Signs Vital Signs Date Time Temp Pulse Resp B/P Pulse Ox O2 Delivery O2 Flow Rate FiO2 05/29/17 16:00 98.1 103 18 109/63 99 05/29/17 14:00 97.7 105 17 115/65 99 05/29/17 12:10 94 18 111/73 95 05/29/17 11:55 98.3 94 18 107/59 97 05/29/17 09:00 122 05/29/17 08:00 98.1 80 17 108/58 97 05/29/17 07:00 Room Air 05/29/17 04:55 97.2 75 16 107/56 93 05/29/17 04:55 Room Air 05/28/17 23:32 Room Air 05/28/17 23:32 98.8 89 16 122/59 95 05/28/17 21:55 Room Air 05/28/17 21:55 98.4 87 16 113/57 94 I/O 05/28/17 05/28/17 05/28/17 05/29/17 05/29/17 05/29/17 07:00 15:00 23:00 07:00 15:00 23:00 Intake Total 997 ml 480 ml 1325 ml 540 ml 480 ml Output Total 1600 ml 900 ml 900 ml 1350 ml 1000 ml Balance -603 ml -420 ml 425 ml -810 ml -520 ml Intake Oral 600 ml 480 ml 960 ml 540 ml 480 ml IV Total 397 ml 365 ml Output Urine Total 1600 ml 900 ml 900 ml 1350 ml 1000 ml # Bowel Movements 0 1 1 0 Result Diagram: 05/29/17 0645 05/28/17 0950 Objective Remarks GENERAL: MBMN WM NAD SKIN: Warm and dry. HEAD: Normocephalic. EYES: No scleral icterus. No injection or drainage. NECK: Supple, trachea midline. No JVD or lymphadenopathy. CARDIOVASCULAR: Regular rate and rhythm without murmurs, gallops, or rubs. RESPIRATORY: Breath sounds equal bilaterally. No accessory muscle use. GASTROINTESTINAL: Abdomen soft, non-tender, nondistended. MUSCULOSKELETAL: No cyanosis, or edema. BACK: Nontender without obvious deformity. No CVA tenderness. A/P Assessment and Plan Bilat Pl effusion, s/p Right TC GIB Cirrhosis E.coli bactremia PLAN: check pl fluid results Cont Abx Stable on RA Live Irwin MD May 29, 2017 20:24
[2017-05-29] MEDS: cefTRIAXone INJ 2,000 MG in SODIUM CHLORIDE 0.9% INJ 100 ML IV SCH (20:56)
[2017-05-29] MEDS: LORazepam 0.5 MG TAB PO PRN (21:35)
[2017-05-30] VITALS (7 sets, daily range): BP systolic 95–108; BP diastolic 51–57; PULSE 87–100; RESP 16–18; TEMP 98.3–98.7; O2SAT 96–100
[2017-05-30] MEDS: metroNIDAZOLE 500 MG TAB PO SCH ×3 (05:39→22:18)
[2017-05-30] MEDS: DOCUSATE SODIUM 100 MG CAP PO SCH ×2 (07:40→20:10)
[2017-05-30] MEDS: PANTOPRAZOLE SOD 40 MG DELAYED RELEASE TAB PO SCH (07:40)
--- NOTE | 2017-05-30 09:37 | PD.ONC.PN ---
Subjective Subjective Remarks Afebrile overnight. Patient resting in bed in nad. No pain from site of thoracentesis. He walked several laps this morning around the corridors. Objective Data Date Time Temp Pulse Resp B/P Pulse Ox O2 Delivery O2 Flow Rate FiO2 05/30/17 07:43 Room Air 05/30/17 06:22 98.4 91 16 95/54 96 05/30/17 01:15 98.6 92 16 108/57 96 05/30/17 00:43 100 05/29/17 23:42 Room Air 05/29/17 21:40 98.1 96 16 114/55 100 05/29/17 16:00 98.1 103 18 109/63 99 05/29/17 14:00 97.7 105 17 115/65 99 05/29/17 12:10 94 18 111/73 95 05/29/17 11:55 98.3 94 18 107/59 97 05/30/17 05/30/17 05/30/17 07:00 15:00 23:00 Intake Total 120 ml Output Total 800 ml Balance -680 ml Result Diagram: 05/29/17 0645 05/28/17 0950 Laboratory Results Laboratory Tests Test 05/29/17 11:30 Pleural Fluid pH 8.0 Pleural Fluid WBC 161 /MM3 Pleural Fluid RBC 71621 /MM3 Pleural Fluid Neutrophils 1 % Pleural Fluid Lymphocytes 15 % Pleural Fluid Monocytes 34 % Pleural Fluid Histiocytes 46 % Pleural Fluid Mesothelial 4 % Cells Culture Results Microbiology Date/Time Procedure Status Source Growth 05/27/17 11:37 Aerobic Blood Culture - Preliminary Resulted Blood Peripheral NO GROWTH IN 2 DAYS 05/27/17 11:37 Anaerobic Blood Culture - Preliminary Resulted Blood Peripheral NO GROWTH IN 2 DAYS 05/27/17 11:42 Aerobic Blood Culture - Preliminary Resulted Blood Peripheral NO GROWTH IN 2 DAYS 05/27/17 11:42 Anaerobic Blood Culture - Preliminary Resulted Blood Peripheral NO GROWTH IN 2 DAYS 05/29/17 11:30 Gram Stain - Final Resulted Fluid Pleural Fluid 05/29/17 11:30 Body Fluid Culture Resulted Fluid Pleural Fluid Pending 05/29/17 11:30 Acid Fast Stain Received Fluid Pleural Fluid Pending 05/29/17 11:30 Mycobacterial Culture Received Fluid Pleural Fluid Pending 05/29/17 11:30 Fungal Smear - Final Resulted Fluid Pleural Fluid NO FUNGAL ELEMENTS SEEN. 05/29/17 11:30 Fungal Culture Resulted Fluid Pleural Fluid Pending Administered Medications Medications (Trade) Dose Ordered Sig/Armida Route PRN Reason Start Time Stop Time Status Last Admin Dose Admin Sodium Chloride (NS Flush) 2 ml UNSCH PRN IVF FLUSH AFTER USING IV ACCESS 05/23/17 15:45 05/28/17 22:51 Metronidazole (Flagyl) 500 mg Q8HR PO 05/25/17 14:00 05/30/17 05:39 Lorazepam (Ativan) 0.5 mg Q12H PRN PO ANXIETY 05/26/17 17:00 05/29/17 21:35 Docusate Sodium (Colace) 100 mg BID PO 05/27/17 12:00 05/30/17 07:40 Magnesium Hydroxide (Milk Of Magnanneliese Liq) 30 ml DAILY PRN PO constipation 05/27/17 12:00 05/27/17 13:06 Pantoprazole Sodium 40 mg 40 mg DAILY PO 05/28/17 09:00 05/30/17 07:40 Ceftriaxone Sodium/Sodium Chloride (Rocephin Inj/NS Inj) 100 ml @ 200 mls/hr Q24H IV 05/28/17 21:00 05/29/17 20:56 Objective Remarks GENERAL: Middle aged male, upright in bed in nad. SKIN: Warm and dry. bandage right upper back, c/d/i HEAD: Normocephalic. EYES: No injection or drainage. NECK: Supple, trachea midline. CARDIOVASCULAR: Regular rate and rhythm RESPIRATORY: Breath sounds equal bilaterally. No accessory muscle use. GASTROINTESTINAL: Abdomen soft, non-tender, nondistended. EXTREMITIES: No cyanosis NEUROLOGICAL: aox3 normal speech. moving all extremities. Assessment/Plan Problem List: (1) Pancytopenia Status: Acute Plan: --monitor, no transfusion needed at present. --multifactorial due to cirrhosis + gi bleed (2) GI bleed Status: Acute Plan: -- Upper endoscopy showed some mild esophageal varices but no active bleeding --CBC stable --GI following (3) Pleural effusion on right Status: Acute Plan: --s/p thoracentesis, cytology pending (4) Sepsis Status: Acute Plan: --on abx. --ID following Assessment 61-year-old male with alcoholics cirrhosis admitted with GI bleeding. Hematology consulted for pancytopenia Plan 1. echo today 2. monitor CBC Attending Statement The exam, history, and the medical decision-making described in the above note were completed with the assistance of the mid-level provider. I reviewed and agree with the findings presented. I attest that I had a [id number] encounter with the patient on the same day, and personally performed and documented my assessment and findings in the medical record. Late entry. [place] better after thoracentesis. Remains afebrile. Monitor CBC. No need for neupogen at this time. Kady Byers May 30, 2017 09:37 Silvestre Hernandez MD May 31, 2017 07:07
[2017-05-30 10:28] LABS: AUTOMATED NEUTROPHIL # 1.8 TH/MM3 (1.8-7.7); BASOPHIL % 0.5 % (0.0-2.0); EOSINOPHIL # 0.1 TH/MM3 (0-0.4); HEMATOCRIT 24.1 % (39.0-51.0); LYMPH % 17.4 % (9.0-44.0); LYMPHOCYTE # 0.5 TH/MM3 (1.0-4.8); MEAN CELL VOLUME 99.4 FL (80.0-100.0); MEAN CORPUSCULAR HEMOGLOBIN 34.8 PG (27.0-34.0); MONO % 13.5 % (0.0-8.0); NEUT % 65.6 % (16.0-70.0); PLATELET COUNT 43 TH/MM3 (150-450); RED BLOOD COUNT 2.43 MIL/MM3 (4.50-5.90); RED CELL DISTRIBUTION WIDTH 18.6 % (11.6-17.2); WHITE BLOOD COUNT 2.8 TH/MM3 (4.0-11.0)
[2017-05-30 10:29] LABS: HEMO FLAGS AUTO DIFF
--- NOTE | 2017-05-30 11:13 | ECHRPT ---
Indication: endocarditis CONCLUSIONS The left ventricular systolic function is mildly reduced with an estimated ejection fraction in the range of 45- 50%. There is assymetric septal hypertrophy. There is mild tricuspid valve regurgitation. Trace mitral valve regurgitation. Mobile echodensity with extra-cardiac motion is noted on the anterior leaflet of the mitral valve co nsistent with probable vegetation (noted in the short axis of the mitral valve) BP: 108 / 58 HR: 80 Rhythm: MEASUREMENTS (Male / Female) Normal Values Technical Quality:Good 2D ECHO LV Diastolic Diameter PLAX 4.6 cm 4.2 - 5.9 / 3.9 - 5.3 cm LV Systolic Diameter PLAX 3.7 cm IVS Diastolic Thickness 1.4 cm 0.6 - 1.0 / 0.6 - 0.9 cm LVPW Diastolic Thickness 1.0 cm 0.6 - 1.0 / 0.6 - 0.9 cm LV Relative Wall Thickness 0.5 RV Internal Dim ED PLAX 2.7 cm M-MODE Aortic Root Diameter MM 3.5 cm LA Systolic Diameter MM 4.0 cm LA Ao Ratio MM 1.1 AV Cusp Separation MM 1.7 cm DOPPLER Mitral E Point Velocity 64.2 cm/s Mitral A Point Velocity 68.6 cm/s Mitral E to A Ratio 0.9 LV E' Lateral Velocity 10.9 cm/s Mitral E to LV E' Lateral Ratio 5.9 LV E' Septal Velocity 8.4 cm/s Mitral E to LV E' Septal Ratio 7.7 TR Peak Velocity 271.0 cm/s TR Peak Gradient 29.4 mmHg FINDINGS LEFT VENTRICLE Normal left ventricular size. There is assymetric septal hypertrophy. The left ventricular systolic function is mildly reduced with an estimated ejection fraction in the range of 45- 50%. No regional wall motion abnormalities are present. RIGHT VENTRICLE Normal right ventricular size and systolic function. LEFT ATRIUM The left atrial size is upper limits of normal. RIGHT ATRIUM The right atrial size is normal. ATRIAL SEPTUM Normal atrial septal thickness without atrial level shunting by limited color doppler interrogation. AORTA The aortic root and proximal ascending aorta are normal in size on limited imaging. MITRAL VALVE Structurally normal mitral valve. Trace mitral valve regurgitation. Mobile echodensity with extra-cardiac motion is noted on the anterior leaflet of the mitral valve co nsistent with probable vegetation (noted in the short axis of the mitral valve) AORTIC VALVE Trileaflet aortic valve. No aortic valve stenosis or regurgitation. TRICUSPID VALVE Structurally normal tricuspid valve. There is mild tricuspid valve regurgitation. The estimated pulmonary arterial pressure is _29_ mmHg. PULMONARY VALVE The pulmonary valve is not well visualized. VESSELS The inferior vena cava is normal in size. PERICARDIUM No pericardial effusion. Deo Lucio DO (Electronically Signed) Final Date:30 May 2017 11:12
[2017-05-30 11:24] LABS: ACANTHOCYTES 1+ (NORMAL); KERATOCYTES OCC (NORMAL); OVALOCYTES 1+ (NORMAL); PLATELET ESTIMATE SMEAR LOW (NORMAL); PLATELET MORPHOLOGY NORMAL (NORMAL); SCAN/DIFF AUTO DIFF CONFIRMED
--- NOTE | 2017-05-30 13:57 | HHI.PR ---
Subjective Remarks feels great, amublating around the [place] thoracentesis done 05/29- 1.3 L out Objective Vitals Vital Signs Date Time Temp Pulse Resp B/P Pulse Ox O2 Delivery O2 Flow Rate FiO2 05/30/17 08:09 98.6 97 16 105/55 100 05/30/17 07:43 Room Air 05/30/17 07:42 96 05/30/17 06:22 98.4 91 16 95/54 96 05/30/17 01:15 98.6 92 16 108/57 96 05/30/17 00:43 100 05/29/17 23:42 Room Air 05/29/17 21:40 98.1 96 16 114/55 100 05/29/17 16:00 98.1 103 18 109/63 99 05/29/17 14:00 97.7 105 17 115/65 99 I/O 05/29/17 05/29/17 05/29/17 05/30/17 05/30/17 05/30/17 07:00 15:00 23:00 07:00 15:00 23:00 Intake Total 540 ml 480 ml 480 ml 120 ml Output Total 1350 ml 1000 ml 400 ml 800 ml Balance -810 ml -520 ml 80 ml -680 ml Intake Oral 540 ml 480 ml 480 ml 120 ml Output Urine Total 1350 ml 1000 ml 400 ml 800 ml # Bowel Movements 0 0 0 Result Diagram: 05/30/17 0953 05/28/17 0950 Imaging Last Impressions Thoracentesis 05/29/17 0600 Signed Impressions: Service Date/Time: Monday, May 29, 2017 11:17 - CONCLUSION: Uncomplicated CT-guided thoracentesis. There is good reexpansion of the right lung. Hamlet Nicholson MD FACR Chest X-Ray 05/29/17 0000 Signed Impressions: Service Date/Time: Monday, May 29, 2017 12:25 - CONCLUSION: Negative for pneumothorax following right thoracentesis. Hamlet Nicholson MD FACR Chest CT 05/27/17 0000 Signed Impressions: Service Date/Time: Saturday, May 27, 2017 15:22 - CONCLUSION: 1. Large loculated right pleural effusion. Moderate-sized free-flowing left pleural effusion. Both effusions would be amenable to ultrasound or CT image guided drainage. 2. No pericardial effusion. No adenopathy. 3. Liver cirrhosis. Mild anasarca. Gallstones. Toño Glez MD Abdomen Ultrasound 05/26/17 0000 Signed Impressions: Service Date/Time: Friday, May 26, 2017 23:41 - CONCLUSION: No significant ascites is identified. Stuart Carlson MD Celiac/Hepatic Arteriogram 05/24/17 0000 Signed Impressions: Service Date/Time: Wednesday, May 24, 2017 14:23 - CONCLUSION: No suspicious arterial vascular findings. Some filling of left gastric varices on splenoportography. Carlos Self MD Objective Remarks awake and alert, mild icteresia lungs no rales regular rhythm abdomen soft, flabby nontender extremities no edema neuro exam- non focal Procedures 05/23 EGDwith findings of Russell's and suspect deulafoy lesion 05/24 celiac and SMA angiography 05/29- right thoracentesis- 1.3 L out A/P Assessment and Plan This is a pleasant 61 y/o Male with a history of cirrhosis, end-stage liver disease, esophageal varices, portal gastropathy who came to ER after abdominal pain and vomit dark emesis, in ER vomited blood status post EGD on 05/23 with Diagnosis of E coli- sepsis- lactic acid level down- source possible- lung-+ infiltrates- clinically looks well Bilateral pleural effusion right greater than left- some Loculated S/P thoracentesis 05/29- 1.3 L out US no significant ascites ID ff along with us- appreciated ab switched to Rocephin 05/[address] Kong ff cardiothoracic surgery consult for evaluation- ? need for decortication Echo report pending - S/P Upper GI bleed with Hematemesis during this hospitalization, with findings of Distal esophageal Russell esophagus, and grade 1-2 varices,no ulcers, - Resolved Mucosa does not appear Edematous duodenum normal Suspected by GI specialist Dieulafoy lesion GI also recommended to consider future TIPS on PPI monitor H and H-no active bleeding ESLD -follow-up as an outpatient.- no encephalopathy. Per patient on transplant list Pancytopenia secondary to liver disease WBC trending down now with sepsis seen by Dr. Hernandez- appreciated ff CBC Chronic anemia, worsen on admission due to acute GI bleeding and blood loss. Hemoglobin stabilized after EGD and CI SMA angiography. Will monitor hemoglobin. No signs of further active bleeding or hematoma May need platelet tranfusion if CT thoracentesis is indicated if significant fluid on chest CT DVT prophylaxisanticoagulation contraindicated due to GI bleed, thrombocytopenia, end-stage liver disease. 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 Parisi as Alex Farnsworth MD May 30, 2017 13:57
--- NOTE | 2017-05-30 15:51 | HHI.PR ---
Subjective Remarks [address] effusion.GIB,Cirrhosis had TC Denies sob no fever Breathing much better Objective Vital Signs Vital Signs Date Time Temp Pulse Resp B/P Pulse Ox O2 Delivery O2 Flow Rate FiO2 05/30/17 08:09 98.6 97 16 105/55 100 05/30/17 07:43 Room Air 05/30/17 07:42 96 05/30/17 06:22 98.4 91 16 95/54 96 05/30/17 01:15 98.6 92 16 108/57 96 05/30/17 00:43 100 05/29/17 23:42 Room Air 05/29/17 21:40 98.1 96 16 114/55 100 05/29/17 16:00 98.1 103 18 109/63 99 I/O 05/29/17 05/29/17 05/29/17 05/30/17 05/30/17 05/30/17 07:00 15:00 23:00 07:00 15:00 23:00 Intake Total 540 ml 480 ml 480 ml 120 ml Output Total 1350 ml 1000 ml 400 ml 800 ml Balance -810 ml -520 ml 80 ml -680 ml Intake Oral 540 ml 480 ml 480 ml 120 ml Output Urine Total 1350 ml 1000 ml 400 ml 800 ml # Bowel Movements 0 0 0 Result Diagram: 05/30/17 0953 05/28/17 0950 Objective Remarks GENERAL: MBMN WM NAD SKIN: Warm and dry. HEAD: Normocephalic. EYES: No scleral icterus. No injection or drainage. NECK: Supple, trachea midline. No JVD or lymphadenopathy. CARDIOVASCULAR: Regular rate and rhythm without murmurs, gallops, or rubs. RESPIRATORY: Breath sounds equal bilaterally. No accessory muscle use. GASTROINTESTINAL: Abdomen soft, non-tender, nondistended. MUSCULOSKELETAL: No cyanosis, or edema. BACK: Nontender without obvious deformity. No CVA tenderness. A/P Assessment and Plan Bilat Pl effusion, s/p Right TC GIB Cirrhosis E.coli bactremia PLAN: check pl fluid results Cont Abx Stable on RA Ambulate Live Irwin MD May 30, 2017 15:51
--- NOTE | 2017-05-30 19:23 | HHI.GIFU ---
Subjective Remarks Pt has no complaints. Feels good. Ready to go home but no in a hurry. Wants everything done right. Looking forward to a liver transplant in the near future. Objective Vitals I&O Vital Signs Date Time Temp Pulse Resp B/P Pulse Ox O2 Delivery O2 Flow Rate FiO2 05/30/17 16:09 98.3 94 16 99/51 100 05/30/17 08:09 98.6 97 16 105/55 100 05/30/17 07:43 Room Air 05/30/17 07:42 96 05/30/17 06:22 98.4 91 16 95/54 96 05/30/17 01:15 98.6 92 16 108/57 96 05/30/17 00:43 100 05/29/17 23:42 Room Air 05/29/17 21:40 98.1 96 16 114/55 100 I/O 05/29/17 05/29/17 05/29/17 05/30/17 05/30/17 05/30/17 07:00 15:00 23:00 07:00 15:00 23:00 Intake Total 540 ml 480 ml 480 ml 120 ml 480 ml Output Total 1350 ml 1000 ml 400 ml 800 ml 1600 ml Balance -810 ml -520 ml 80 ml -680 ml -1120 ml Intake Oral 540 ml 480 ml 480 ml 120 ml 480 ml Output Urine Total 1350 ml 1000 ml 400 ml 800 ml 1600 ml # Bowel Movements 0 0 0 0 Laboratory Laboratory Tests Test 05/30/17 09:53 White Blood Count 2.8 Red Blood Count 2.43 Hemoglobin 8.4 Hematocrit 24.1 Mean Corpuscular Volume 99.4 Mean Corpuscular Hemoglobin 34.8 Mean Corpuscular Hemoglobin 35.0 Concent Red Cell Distribution Width 18.6 Platelet Count 43 Mean Platelet Volume 9.0 Neutrophils (%) (Auto) 65.6 Lymphocytes (%) (Auto) 17.4 Monocytes (%) (Auto) 13.5 Eosinophils (%) (Auto) 3.0 Basophils (%) (Auto) 0.5 Neutrophils # (Auto) 1.8 Lymphocytes # (Auto) 0.5 Monocytes # (Auto) 0.4 Eosinophils # (Auto) 0.1 Basophils # (Auto) 0.0 CBC Comment AUTO DIFF Differential Comment AUTO DIFF CONFIRMED Platelet Estimate LOW Platelet Morphology Comment NORMAL Ovalocytes 1+ Acanthocytes 1+ Keratocytes OCC Date/Time Procedure Status Source Growth 05/29/17 11:30 Gram Stain - Final Resulted Fluid Pleural Fluid 05/29/17 11:30 Body Fluid Culture - Preliminary Resulted Fluid Pleural Fluid NO GROWTH IN 24 HOURS. 05/29/17 11:30 Fungal Smear - Final Resulted Fluid Pleural Fluid NO FUNGAL ELEMENTS SEEN. 05/29/17 11:30 Fungal Culture Resulted Fluid Pleural Fluid Pending 05/29/17 11:30 Acid Fast Stain - Final Resulted Fluid Pleural Fluid NO ACID FAST BACILLI SEEN 05/29/17 11:30 Mycobacterial Culture Resulted Fluid Pleural Fluid Pending 05/27/17 11:42 Aerobic Blood Culture - Preliminary Resulted Blood Peripheral NO GROWTH IN 3 DAYS 05/27/17 11:42 Anaerobic Blood Culture - Preliminary Resulted Blood Peripheral NO GROWTH IN 3 DAYS Physical Exam HEENT: Normocephalic; atraumatic; no jaundice. CHEST: CTA. CARDIAC: RRR. ABDOMEN: Soft, nondistended, nontender; hepatosplenomegaly; bowel sounds are present in all four quadrants. EXTREMITIES: No clubbing, cyanosis, or edema. SKIN: Normal; no rash; no jaundice. AUTOMATIC DEVELOPER: No focal deficits; alert and oriented times three. Assessment and Plan Plan ASSESSMENT: - Recurrent upper GIB, hematemesis. S/P EGD (05/24/17)-----> Distal esophageal Barretts esophagus and grade 1-2 varices, Stomach: no blood. No ulcers. Mucosa does not appear edematous duodenum: normal. S/P Angiogram of the Celiac, Superior Mesenteric Artery (05/24/17)---> no hemorrhagic focus identified. No further bleeding. HH did drop to 7.8/22.3 on 05/26. Protonix 40mg PO daily. Feels good, no n/v/ pain. No active bleeding. - Anemia, acute blood loss- stable. S/P 6 units PRBC. - Coagulopathy, Thrombocytopenia. S/P 2 units FFP, 2 units Platelets. Plt 35, INR 1.7. - Liver cirrhosis. Established at [facility], Caitlin Styles . T. Bili 5.0, AST 43, ALT 31, Alk Phosph 104. Abd US (05/26) with no significant ascites noted. - GERD, Russell's Esophagus. Protonix. - Positive blood culture, 11/30 with E. coli. Pt is on ancef and Flagyl. Repeat blood cultures ordered for today PLAN: - MARCO A - Colace BID, MOM PRN - Cont. Protonix 40mg change to po - Monitor HH - Transfuse as necessary - Supportive care Dylan Mosley MD May 30, 2017 19:22
[2017-05-30] MEDS: cefTRIAXone INJ 2,000 MG in SODIUM CHLORIDE 0.9% INJ 100 ML IV SCH (20:09)
[2017-05-30] MEDS: LORazepam 0.5 MG TAB PO PRN (22:21)
[2017-05-31] VITALS (8 sets, daily range): BP systolic 103–161; BP diastolic 55–72; PULSE 73–107; RESP 16–20; TEMP 96–98.7; O2SAT 96–100
[2017-05-31] MEDS: metroNIDAZOLE 500 MG TAB PO SCH ×3 (06:07→21:32)
[2017-05-31] MEDS: PANTOPRAZOLE SOD 40 MG DELAYED RELEASE TAB PO SCH (08:26)
[2017-05-31 09:25] LABS: HEMATOCRIT 21.5 % (39.0-51.0); MEAN CELL VOLUME 99.7 FL (80.0-100.0); MEAN CORPUSCULAR HEMOGLOBIN 34.7 PG (27.0-34.0); MEAN CORPUSCULAR HGB CONC 34.8 % (32.0-36.0); PLATELET COUNT 40 TH/MM3 (150-450); RED BLOOD COUNT 2.15 MIL/MM3 (4.50-5.90); RED CELL DISTRIBUTION WIDTH 18.9 % (11.6-17.2)
[2017-05-31 09:26] LABS: HEMO FLAGS AUTO DIFF
[2017-05-31 10:13] LABS: BANDS 1 % (0-6); EOSINOPHILS 1 % (0-4); NEUTROPHIL # MANUAL DIFF 1.4 TH/MM3 (1.8-7.7); POLYS (SEG NEUTROPHILS) 71 % (16-70); WBC DIFF SAMPLE 100
[2017-05-31 10:14] LABS: ACANTHOCYTES OCC (NORMAL); TEARDROP RBCS 1+ (NORMAL)
[2017-05-31 10:15] LABS: PLATELET ESTIMATE SMEAR LOW (NORMAL); PLATELET MORPHOLOGY NORMAL (NORMAL); SCAN/DIFF FINAL DIFF MANUAL
--- NOTE | 2017-05-31 11:10 | PD.ONC.PN ---
Subjective Subjective Remarks Afebrile overnight Anxious to go home States "I feel great" SOB still much improved after thoracentesis. Objective Data Date Time Temp Pulse Resp B/P Pulse Ox O2 Delivery O2 Flow Rate FiO2 05/31/17 08:00 98.0 77 20 108/66 96 05/31/17 04:00 Room Air 05/31/17 04:00 97.7 73 17 113/57 99 05/31/17 00:00 Room Air 05/31/17 00:00 97.9 89 17 105/56 98 05/30/17 20:00 91 05/30/17 20:00 98.7 87 18 100/55 96 05/30/17 20:00 Room Air 05/30/17 16:09 98.3 94 16 99/51 100 05/31/17 05/31/17 05/31/17 07:00 15:00 23:00 Output Total 700 ml Balance -700 ml Result Diagram: 05/31/17 0630 05/28/17 0950 Laboratory Results Laboratory Tests Test 05/31/17 06:30 White Blood Count 2.0 TH/MM3 Red Blood Count 2.15 MIL/MM3 Hemoglobin 7.5 GM/DL Hematocrit 21.5 % Mean Corpuscular Volume 99.7 FL Mean Corpuscular Hemoglobin 34.7 PG Mean Corpuscular Hemoglobin 34.8 % Concent Red Cell Distribution Width 18.9 % Platelet Count 40 TH/MM3 Mean Platelet Volume 9.6 FL Neutrophils (%) (Auto) % Lymphocytes (%) (Auto) % Monocytes (%) (Auto) % Eosinophils (%) (Auto) % Basophils (%) (Auto) % Neutrophils # (Auto) TH/MM3 Lymphocytes # (Auto) TH/MM3 Monocytes # (Auto) TH/MM3 Eosinophils # (Auto) TH/MM3 Basophils # (Auto) TH/MM3 CBC Comment AUTO DIFF Differential Total Cells 100 Counted Neutrophils % (Manual) 71 % Band Neutrophils % 1 % Lymphocytes % 18 % Monocytes % 9 % Eosinophils % 1 % Neutrophils # (Manual) 1.4 TH/MM3 Differential Comment FINAL DIFF MANUAL Platelet Estimate LOW Platelet Morphology Comment NORMAL Tear Drop Cells 1+ Acanthocytes OCC Culture Results Microbiology Date/Time Procedure Status Source Growth 05/29/17 11:30 Gram Stain - Final Resulted Fluid Pleural Fluid 05/29/17 11:30 Body Fluid Culture - Preliminary Resulted Fluid Pleural Fluid NO GROWTH IN 48 HOURS. 7/3/17 11:30 Acid Fast Stain - Final Resulted Fluid Pleural Fluid NO ACID FAST BACILLI SEEN 05/29/17 11:30 Mycobacterial Culture Resulted Fluid Pleural Fluid Pending 05/29/17 11:30 Fungal Smear - Final Resulted Fluid Pleural Fluid NO FUNGAL ELEMENTS SEEN. 05/29/17 11:30 Fungal Culture Resulted Fluid Pleural Fluid Pending Administered Medications Medications (Trade) Dose Ordered Sig/Armida Route PRN Reason Start Time Stop Time Status Last Admin Dose Admin Sodium Chloride (NS Flush) 2 ml UNSCH PRN IVF FLUSH AFTER USING IV ACCESS 05/23/17 15:45 05/28/17 22:51 Metronidazole (Flagyl) 500 mg Q8HR PO 05/25/17 14:00 05/31/17 06:07 Lorazepam (Ativan) 0.5 mg Q12H PRN PO ANXIETY 05/26/17 17:00 05/30/17 22:21 Docusate Sodium (Colace) 100 mg BID PO 05/27/17 12:00 05/30/17 20:10 Magnesium Hydroxide (Milk Of Trendientanneliese Liq) 30 ml DAILY PRN PO constipation 05/27/17 12:00 05/27/17 13:06 Pantoprazole Sodium 40 mg 40 mg DAILY PO 05/28/17 09:00 05/31/17 08:26 Ceftriaxone Sodium/Sodium Chloride (Rocephin Inj/NS Inj) 100 ml @ 200 mls/hr Q24H IV 05/28/17 21:00 05/30/17 20:09 Objective Remarks GENERAL: Well appearing middle aged male in no acute distress. SKIN: Warm and dry. HEAD: Normocephalic. EYES: No injection or drainage. NECK: Supple, trachea midline. CARDIOVASCULAR: +S1/S2. RESPIRATORY: Clear anteriorly. Breathing unlabored. GASTROINTESTINAL: Abdomen soft, non-tender, nondistended. EXTREMITIES: No cyanosis. No edema. NEUROLOGICAL: Aox3, normal speech. Moving all extremities. Assessment/Plan Problem List: (1) Pancytopenia Status: Acute Plan: --monitor, no transfusion needed at present. --multifactorial due to cirrhosis + gi bleed (2) GI bleed Status: Acute Plan: -- Upper endoscopy showed some mild esophageal varices but no active bleeding --CBC stable --GI following (3) Pleural effusion on right Status: Acute Plan: --s/p thoracentesis, cytology pending (4) Sepsis Status: Acute Plan: --on abx. --ID following Assessment 61-year-old male with alcoholics cirrhosis admitted with GI bleeding. Hematology consulted for pancytopenia Plan 1. Hgb 7.5 today. Pt completely asymptomatic. Will check CBC in am. 2. Await cardiothoracic consult, ECHO showed possible vegetation to mitral valve. 3. If plan for RAZA, would recommend infusing platelets prior. Otherwise OK for RAZA. 4. Continue to hold off on Neupogen. Attending Statement The exam, history, and the medical decision-making described in the above note were completed with the assistance of the mid-level provider. I reviewed and agree with the findings presented. I attest that I had a [id number] encounter with the patient on the same day, and personally performed and documented my assessment and findings in the medical record. Denies CP/SOB. Hgb trended lower but no obvious bleeding. Mild neutropenia but remains afebrile, hold off on giving him neupogen at this time. Can transfuse platelet if he is going to have procedures. Vera Corona May 31, 2017 11:10 Silvestre Hernandez MD May 31, 2017 12:46
--- NOTE | 2017-05-31 11:50 | MB ---
cc: ANNMARIE BAKER DATE OF CONSULTATION: 05/31/2017 HISTORY OF PRESENT ILLNESS A 61-year-old male known to Dr. Annmarie Baker and myself. He was seen back in August 2016. The patient had a #32 chest tube inserted for drainage of effusion. They drained about 2200 cc of fluid. We were reconsulted the following month in September for possible suspect empyema. He ultimately had a PleurX catheter placed per radiology and was admitted with sepsis and ascites at that time. E. coli grew from the blood and the fluid cultures. Dr. Baker at that time reviewed the CT chest and did not recommend any further surgical intervention. The patient has been admitted multiple times for GI bleed with his longstanding history of alcohol-induced cirrhosis. He was admitted again this time for hematemesis, history of prior GI bleed. Upper endoscopy in February showed esophageal varices. He had another upper endoscopy on May 24 which showed distal esophageal varices but no active bleeding. He has received some blood transfusion since his hemoglobin trended down to 7. He also developed worsening pancytopenia and was found to have E. coli bacteremia. Hematology has been following the patient. He also states he is being followed at the [facility] for transplant. His last MELD score was 23. He says his last alcohol was over a year ago. We were consulted to evaluate for possible pleurodesis. He has had some recurrent right pleural effusion. They drained 1200 cc of clear fluid. Micro showed no growth in the pleural fluid. No LDH was sent and no pleural protein to evaluate. Currently the patient is on room air. He states he is not short of breath. Clinically he looks stable. PAST MEDICAL HISTORY Alcohol-induced liver cirrhosis with recurrent hematesis, esophageal varices, portal gastropathy, portal hypertension. PAST SURGICAL HISTORY 1. Prior right-sided chest tube for pleural effusion back in August 2016. 2. Multiple prior EGDs. ALLERGIES No known allergies. MEDICATIONS Home meds include: 1. Nadolol. 2. Lasix. 3. Spironolactone. FAMILY HISTORY Noncontributory. SOCIAL HISTORY Lives with his . Denies tobacco. Quit alcohol over a year ago. REVIEW OF SYSTEMS GENERAL: In general no night sweats, fever, heat or cold intolerance. SKIN: No psoriasis, itching or hives. HEENT: No blurred vision or hearing loss. RESPIRATORY: No current shortness of breath. CARDIOVASCULAR: No chest pain. GASTROINTESTINAL: Positive for recent hematemesis which is resolved. No diarrhea or vomiting. GENITOURINARY: No burning, frequency, urgency. PROBATE PARALEGAL: No history of TIA, CVA, seizure disorder. ENDOCRINE: No history of diabetes and/or hypothyroidism. PHYSICAL EXAMINATION VITAL SIGNS: Blood pressure 108/60, heart rate 77, afebrile. GENERAL: Patient is awake, alert, in no acute distress. HEENT: Head is normocephalic, atraumatic. Pupils equal and reactive. Oral mucosa pink and moist. NECK: Supple. No JVD. HEART: Heart sounds S1, S2, regular rate and rhythm. No rubs, murmurs or gallops. LUNGS: Diminished in the right lower base. He has a well-healed scar below the right nipple from prior chest tube. He has a small dressing to the right posterior thorax from his thoracentesis. ABDOMEN: Slightly protuberant, soft. EXTREMITIES: No cyanosis, clubbing or edema. LABORATORY Hemoglobin 7.5, hematocrit 21, white cell count 2, platelet count 40. Platelets on admission 47. Sodium 138, potassium 3.7, BUN 8, creatinine 0.59. INR 1.7. Micro showed E. coli bacteremia on blood culture 05/25/2017. Blood cultures on 05/27/2017 have been negative. Cytology is pending. PROCEDURES He had a thoracentesis on 05/29/2017 draining 1275 clear red fluid on the right. IMAGING CT chest on 05/27/2017 showed a large loculated right pleural effusion, some moderate free-flowing pleural effusion, liver cirrhosis, mild anasarcous and gallstones. IMPRESSION AND RECOMMENDATIONS 1. This is a 61-year-old male known to our service with recurrent pleural effusion. Recheck chest x-ray today. The CT film will be evaluated by Dr. Annmarie Baker. Currently the patient is stable on room air. He does have significant pancytopenia with significant thrombocytopenia. If any kind of procedures would be done he would need to be transfused with platelets prior to the procedure. 2. Recent GI bleed. No recurrent hematemesis, status post upper endoscopy. 3. Bacteremia, currently on antibiotics. 4. Liver cirrhosis. The patient is involved in the [facility]'s transplant program at this time. 5. Again, films will be evaluated by Dr. Annmarie Baker to evaluate need for any further intervention at this time. Dictated by: NEREIDA Pleitez I agree with the above assessment and he is at prohibitive risk for surgery at this time with his other comorbidities. MD NIKIA Foote/KATI /10:53 AM /11:54 AM MTDD
[2017-05-31] MEDS: DOCUSATE SODIUM 100 MG CAP PO SCH ×2 (12:04→21:32)
[2017-05-31 12:26] LABS: BODY FLUID LDH 56 U/L (()); BODY FLUID LDH SOURCE PLEURAL (())
--- NOTE | 2017-05-31 13:46 | HHI.GIFU ---
Subjective Remarks Resting in bed. No active bleeding. No shortness of breath. No fevers. Objective Vitals I&O Vital Signs Date Time Temp Pulse Resp B/P Pulse Ox O2 Delivery O2 Flow Rate FiO2 05/31/17 12:00 98.2 88 20 111/58 99 05/31/17 11:48 Room Air 05/31/17 08:00 98.0 77 20 108/66 96 05/31/17 08:00 107 05/31/17 04:00 Room Air 05/31/17 04:00 97.7 73 17 113/57 99 05/31/17 00:00 Room Air 05/31/17 00:00 97.9 89 17 105/56 98 05/30/17 20:00 91 05/30/17 20:00 98.7 87 18 100/55 96 05/30/17 20:00 Room Air 05/30/17 16:09 98.3 94 16 99/51 100 I/O 05/30/17 05/30/17 05/30/17 05/31/17 05/31/17 05/31/17 07:00 15:00 23:00 07:00 15:00 23:00 Intake Total 120 ml 480 ml Output Total 800 ml 1600 ml 700 ml Balance -680 ml -1120 ml -700 ml Intake Oral 120 ml 480 ml Output Urine Total 800 ml 1600 ml 700 ml # Bowel Movements 0 0 Laboratory Laboratory Tests Test 05/31/17 06:30 White Blood Count 2.0 Red Blood Count 2.15 Hemoglobin 7.5 Hematocrit 21.5 Mean Corpuscular Volume 99.7 Mean Corpuscular Hemoglobin 34.7 Mean Corpuscular Hemoglobin 34.8 Concent Red Cell Distribution Width 18.9 Platelet Count 40 Mean Platelet Volume 9.6 Neutrophils (%) (Auto) Lymphocytes (%) (Auto) Monocytes (%) (Auto) Eosinophils (%) (Auto) Basophils (%) (Auto) Neutrophils # (Auto) Lymphocytes # (Auto) Monocytes # (Auto) Eosinophils # (Auto) Basophils # (Auto) CBC Comment AUTO DIFF Differential Total Cells 100 Counted Neutrophils % (Manual) 71 Band Neutrophils % 1 Lymphocytes % 18 Monocytes % 9 Eosinophils % 1 Neutrophils # (Manual) 1.4 Differential Comment FINAL DIFF MANUAL Platelet Estimate LOW Platelet Morphology Comment NORMAL Tear Drop Cells 1+ Acanthocytes OCC Date/Time Procedure Status Source Growth 05/29/17 11:30 Gram Stain - Final Resulted Fluid Pleural Fluid 05/29/17 11:30 Body Fluid Culture - Preliminary Resulted Fluid Pleural Fluid NO GROWTH IN 48 HOURS. 05/29/17 11:30 Fungal Smear - Final Resulted Fluid Pleural Fluid NO FUNGAL ELEMENTS SEEN. 05/29/17 11:30 Fungal Culture Resulted Fluid Pleural Fluid Pending 05/29/17 11:30 Acid Fast Stain - Final Resulted Fluid Pleural Fluid NO ACID FAST BACILLI SEEN 05/29/17 11:30 Mycobacterial Culture Resulted Fluid Pleural Fluid Pending 05/27/17 11:42 Aerobic Blood Culture - Preliminary Resulted Blood Peripheral NO GROWTH IN 4 DAYS 05/27/17 11:42 Anaerobic Blood Culture - Preliminary Resulted Blood Peripheral NO GROWTH IN 4 DAYS Imaging Last Impressions Thoracentesis 05/29/17 0600 Signed Impressions: Service Date/Time: Monday, May 29, 2017 11:17 - CONCLUSION: Uncomplicated CT-guided thoracentesis. There is good reexpansion of the right lung. Hamlet Nicholson MD FACR Chest X-Ray 05/29/17 0000 Signed Impressions: Service Date/Time: Monday, May 29, 2017 12:25 - CONCLUSION: Negative for pneumothorax following right thoracentesis. Hamlet Nicholson MD FACR Chest CT 05/27/17 0000 Signed Impressions: Service Date/Time: Saturday, May 27, 2017 15:22 - CONCLUSION: 1. Large loculated right pleural effusion. Moderate-sized free-flowing left pleural effusion. Both effusions would be amenable to ultrasound or CT image guided drainage. 2. No pericardial effusion. No adenopathy. 3. Liver cirrhosis. Mild anasarca. Gallstones. Toño Glez MD Abdomen Ultrasound 05/26/17 0000 Signed Impressions: Service Date/Time: Friday, May 26, 2017 23:41 - CONCLUSION: No significant ascites is identified. Stuart Carlson MD Celiac/Hepatic Arteriogram 05/24/17 0000 Signed Impressions: Service Date/Time: Wednesday, May 24, 2017 14:23 - CONCLUSION: No suspicious arterial vascular findings. Some filling of left gastric varices on splenoportography. Carlos Slef MD Physical Exam HEENT: Normocephalic; atraumatic; no jaundice. CHEST: CTA, diminished basis CARDIAC: RRR. ABDOMEN: Soft, nondistended, nontender; hepatosplenomegaly; bowel sounds are present in all four quadrants. EXTREMITIES: No clubbing, cyanosis, or edema. SKIN: Normal; no rash; no jaundice. BUCKLE STRAP PUNCHER: No focal deficits; alert and oriented times three. Assessment and Plan Plan ASSESSMENT: - Recurrent upper GIB, hematemesis. S/P EGD (05/24/17)-----> Distal esophageal Barretts esophagus and grade 1-2 varices, Stomach: no blood. No ulcers. Mucosa does not appear edematous duodenum: normal. S/P Angiogram of the Celiac, Superior Mesenteric Artery (05/24/17)---> no hemorrhagic focus identified. No further bleeding. HH did drop to 7.8/22.3 on 05/26. Protonix 40mg PO daily. Feels good, no n/v/ pain. No active bleeding. HH 7.5/21.5 - Anemia, acute blood loss- stable. S/P 2 units PRBC. - Coagulopathy, Thrombocytopenia. Platelet 40. INR 1.7 on 05/29. - Liver cirrhosis. Established at [facility], Caitlin Styles . T. Bili 5.0, AST 43, ALT 31, Alk Phosph 104. Abd US (05/26) with no significant ascites noted. - GERD, Russell's Esophagus. Protonix. - Bacteremia with E. Coli. Rpt cx no growth x 4 days. Pleural fluid no growth 48 hours, fungal culture and mycobacterial culture pending. - Pleural effusion. Chest CT (05/27/17)----> 1. Large loculated right pleural effusion. Moderate-sized free-flowing left pleural effusion. Both effusions would be amenable to ultrasound or CT image guided drainage. 2. No pericardial effusion. No adenopathy. 3. Liver cirrhosis. Mild anasarca. Gallstones. S/P Thoracentesis (05/29/17)-----> Uncomplicated CT-guided thoracentesis. There is good reexpansion of the right lung. 1275cc removed. Pleural fluid no growth 48 hours, fungal culture and mycobacterial culture pending. PLAN: - Heart healthy diet - Add Spironolactone - Cont. PPI - Cont. colace - Monitor HH - Transfuse as necessary - Supportive care - FU OVIDIO 2 weeks - Pt seen and examined by Dr. Mosley and myself and this note is written on his behalf Natalia Anderson May 31, 2017 13:46
--- NOTE | 2017-05-31 14:27 | HHI.PR ---
Subjective Remarks no complains of nausea or vomiting, abdominal pain no melena or hematochezia Objective Vitals Vital Signs Date Time Temp Pulse Resp B/P Pulse Ox O2 Delivery O2 Flow Rate FiO2 05/31/17 12:00 98.2 88 20 111/58 99 05/31/17 11:48 Room Air 05/31/17 08:00 98.0 77 20 108/66 96 05/31/17 08:00 107 05/31/17 04:00 Room Air 05/31/17 04:00 97.7 73 17 113/57 99 05/31/17 00:00 Room Air 05/31/17 00:00 97.9 89 17 105/56 98 05/30/17 20:00 91 05/30/17 20:00 98.7 87 18 100/55 96 05/30/17 20:00 Room Air 05/30/17 16:09 98.3 94 16 99/51 100 I/O 05/30/17 05/30/17 05/30/17 05/31/17 05/31/17 05/31/17 07:00 15:00 23:00 07:00 15:00 23:00 Intake Total 120 ml 480 ml Output Total 800 ml 1600 ml 700 ml Balance -680 ml -1120 ml -700 ml Intake Oral 120 ml 480 ml Output Urine Total 800 ml 1600 ml 700 ml # Bowel Movements 0 0 Result Diagram: 05/31/17 0630 05/28/17 0950 Imaging Last Impressions Thoracentesis 05/29/17 0600 Signed Impressions: Service Date/Time: Monday, May 29, 2017 11:17 - CONCLUSION: Uncomplicated CT-guided thoracentesis. There is good reexpansion of the right lung. Hamlet Nicholson MD FACR Chest X-Ray 05/29/17 0000 Signed Impressions: Service Date/Time: Monday, May 29, 2017 12:25 - CONCLUSION: Negative for pneumothorax following right thoracentesis. Hamlet Nicholson MD FACR Chest CT 05/27/17 0000 Signed Impressions: Service Date/Time: Saturday, May 27, 2017 15:22 - CONCLUSION: 1. Large loculated right pleural effusion. Moderate-sized free-flowing left pleural effusion. Both effusions would be amenable to ultrasound or CT image guided drainage. 2. No pericardial effusion. No adenopathy. 3. Liver cirrhosis. Mild anasarca. Gallstones. Toño Glez MD Abdomen Ultrasound 05/26/17 0000 Signed Impressions: Service Date/Time: Friday, May 26, 2017 23:41 - CONCLUSION: No significant ascites is identified. Stuart Carlson MD Celiac/Hepatic Arteriogram 05/24/17 0000 Signed Impressions: Service Date/Time: Wednesday, May 24, 2017 14:23 - CONCLUSION: No suspicious arterial vascular findings. Some filling of left gastric varices on splenoportography. Carlos Self MD Objective Remarks awake and alert, mild icteresia lungs no rales regular rhythm abdomen soft, flabby nontender extremities no edema neuro exam- non focal Procedures 05/23 EGDwith findings of Russell's and suspect deulafoy lesion 05/24 celiac and SMA angiography 05/29- right thoracentesis- 1.3 L out A/P Assessment and Plan 61 y/o Male with a history of cirrhosis, end-stage liver disease, esophageal varices, portal gastropathy who came to ER after abdominal pain and vomit dark emesis, in ER vomited blood status post EGD on 05/23 with Diagnosis of E coli- sepsis-- clinically looks well Bilateral pleural effusion right greater than left- some Loculated S/P thoracentesis 05/29- 1.3 L out- Recurrent US no significant ascites ID ff along with us- appreciated - ab switched to Rocephin 05/[address] Kong ff cardiothoracic surgery saw patient- will ff along with us suspicious Mobile vegetation - Mitral Valve on Echo Cardiomyopathy EF 45 % cardiology consult for RAZA. discussed with Dr. Kong patient started on Aldactone today 05/31 monitor BPs- if able to tolerated add SAHIL S/P Upper GI bleed with Hematemesis during this hospitalization, with findings of Distal esophageal Russell esophagus, and grade 1-2 varices,no ulcers, - No active bleed Mucosa does not appear Edematous duodenum normal Suspected by GI specialist Dieulafoy lesion GI also recommended to consider future TIPS started on Aldactone monitor H and H-slight drop in H and H no active bleeding. monitor ESLD -follow-up as an outpatient.- no encephalopathy. Per patient on transplant list Pancytopenia secondary to liver disease WBC trending down now with sepsis seen by Dr. Hernandez- appreciated ff CBC. no need for transfusion at this point will need platelet tranfusion for any procedure DVT prophylaxisanticoagulation contraindicated due to GI bleed, thrombocytopenia, end-stage liver disease. 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 Parisi as Alex Farnsworth MD May 31, 2017 14:27
--- NOTE | 2017-05-31 16:21 | HHI.PR ---
Addendum to Inpatient Note Additional Information d/w : Recommend RAZA. Await Cardiothoracic consult recs. Not ready for DC yet. Barbara Kong MD May 31, 2017 16:21
[2017-05-31] MEDS: SPIRONOLACTONE 50 MG TAB PO SCH (17:28)
--- NOTE | 2017-05-31 18:41 | HHI.PR ---
Subjective Remarks [address] effusion.GIB,Cirrhosis had TC Denies sob no fever Breathing much better Pl fluid cultures negative Objective Vital Signs Vital Signs Date Time Temp Pulse Resp B/P Pulse Ox O2 Delivery O2 Flow Rate FiO2 05/31/17 16:00 96.0 92 20 115/55 100 05/31/17 12:00 98.2 88 20 111/58 99 05/31/17 11:48 Room Air 05/31/17 08:00 98.0 77 20 108/66 96 05/31/17 08:00 107 05/31/17 04:00 Room Air 05/31/17 04:00 97.7 73 17 113/57 99 05/31/17 00:00 Room Air 05/31/17 00:00 97.9 89 17 105/56 98 05/30/17 20:00 91 05/30/17 20:00 98.7 87 18 100/55 96 05/30/17 20:00 Room Air I/O 05/30/17 05/30/17 05/30/17 05/31/17 05/31/17 05/31/17 07:00 15:00 23:00 07:00 15:00 23:00 Intake Total 120 ml 480 ml 600 ml Output Total 800 ml 1600 ml 700 ml 850 ml Balance -680 ml -1120 ml -700 ml -250 ml Intake Oral 120 ml 480 ml 600 ml Output Urine Total 800 ml 1600 ml 700 ml 850 ml # Bowel Movements 0 0 0 Result Diagram: 05/31/17 0630 05/28/17 0950 Objective Remarks GENERAL: MBMN WM NAD SKIN: Warm and dry. HEAD: Normocephalic. EYES: No scleral icterus. No injection or drainage. NECK: Supple, trachea midline. No JVD or lymphadenopathy. CARDIOVASCULAR: Regular rate and rhythm without murmurs, gallops, or rubs. RESPIRATORY: Breath sounds equal bilaterally. No accessory muscle use. GASTROINTESTINAL: Abdomen soft, non-tender, nondistended. MUSCULOSKELETAL: No cyanosis, or edema. BACK: Nontender without obvious deformity. No CVA tenderness. A/P Assessment and Plan Bilat Pl effusion, s/p Right TC GIB Cirrhosis E.coli bactremia PLAN: check pl fluid results Cont Abx Stable on RA Ambulate Cytology pending Live Irwin MD May 31, 2017 18:41
[2017-05-31] MEDS: cefTRIAXone INJ 2,000 MG in SODIUM CHLORIDE 0.9% INJ 100 ML IV SCH (21:32)
[2017-05-31] MEDS: LORazepam 0.5 MG TAB PO PRN (23:13)
[2017-06-01 04:10] VITALS: BP 106/59; PULSE 93; RESP 16; TEMP 98.4; O2SAT 97
[2017-06-01] MEDS: metroNIDAZOLE 500 MG TAB PO SCH ×2 (06:09→15:50)
[2017-06-01 08:00] VITALS: BP_SYST 102; BP_SYST 105; BP_DIAS 58; BP_DIAS 59; PULSE 83; PULSE 85; RESP 18; RESP 20; TEMP 97.9; O2SAT 97; O2SAT 98
[2017-06-01 08:04] LABS: AUTOMATED NEUTROPHIL # 2.2 TH/MM3 (1.8-7.7); BASOPHIL % 1.2 % (0.0-2.0); EOSINOPHIL # 0.1 TH/MM3 (0-0.4); EOSINOPHIL % 3.3 % (0.0-4.0); HEMATOCRIT 28.4 % (39.0-51.0); LYMPH % 15.6 % (9.0-44.0); LYMPHOCYTE # 0.5 TH/MM3 (1.0-4.8); MEAN CELL VOLUME 100.8 FL (80.0-100.0); MEAN CORPUSCULAR HEMOGLOBIN 34.9 PG (27.0-34.0); MEAN CORPUSCULAR HGB CONC 34.6 % (32.0-36.0); MONO % 11.1 % (0.0-8.0); NEUT % 68.8 % (16.0-70.0); PLATELET COUNT 60 TH/MM3 (150-450); RED BLOOD COUNT 2.82 MIL/MM3 (4.50-5.90); RED CELL DISTRIBUTION WIDTH 18.8 % (11.6-17.2); WHITE BLOOD COUNT 3.3 TH/MM3 (4.0-11.0)
[2017-06-01 08:07] LABS: HEMO FLAGS AUTO DIFF
[2017-06-01] MEDS: PANTOPRAZOLE SOD 40 MG DELAYED RELEASE TAB PO SCH (08:23)
[2017-06-01] MEDS: SPIRONOLACTONE 50 MG TAB PO SCH (08:23)
[2017-06-01] MEDS: DOCUSATE SODIUM 100 MG CAP PO SCH (08:23)
--- NOTE | 2017-06-01 08:29 | MB ---
cc: NICHOL MOONEY DATE OF CONSULTATION 05/31/2017 REASON FOR CONSULTATION Possible endocarditis. HISTORY OF THE PRESENT ILLNESS This 61-year-old gentleman, he was seen back in August, at that time had a chest tube placed for pleural effusion and suspected empyema. He has a history of multiple GI bleeds, long-standing alcohol induced cirrhosis with esophageal varices. He was admitted again for recurrent hematemesis. He underwent endoscopy which showed small esophageal varices, prior banding. He had a transthoracic echocardiogram which showed a possible small mobile echodensity on the anterior leaflet. We were consulted for consideration of transesophageal echocardiogram. PAST MEDICAL HISTORY 1. History of liver cirrhosis. 2. GI bleed. 3. Esophageal varices. 4. Pleural effusion. ALLERGIES NO KNOWN DRUG ALLERGIES. SOCIAL HISTORY Used to drink 4-6 beers the day before he quit. Denies any drug use. prior marriage. He has been for about 7 months now. FAMILY HISTORY Denies any family history of early coronary artery disease or sudden cardia . REVIEW OF SYSTEMS A 12 point review of symptoms was performed and negative unless otherwise noted in the history of present illness. PHYSICAL EXAMINATION VITAL SIGNS: Temperature is 98, heart rate 88, blood pressure 111/58 mmHg. GENERAL: Alert and oriented times three. No acute distress. HEENT: Examination shows pupils reactive to light and accommodation. Extraocular movements are intact. NECK: No elevation or jugular venous distention. No thyromegaly. No lymphadenopathy. No carotid bruits. LUNGS: Clear to auscultation bilaterally. CARDIOVASCULAR: Regular rate and rhythm without murmurs, rubs, or gallops. ABDOMEN: Nontender, nondistended. Good bowel sounds. No hepatosplenomegaly. EXTREMITIES: No clubbing, cyanosis, or edema. Good peripheral pulses. NEUROLOGICAL: Cranial nerves intact. Motor strengths are grossly intact. LABORATORY DATA WBC 2, hemoglobin 7.5, platelet count 40. Sodium 138, potassium 3.7, BUN is 8, creatinine 0.59. ASSESSMENT 1. Mobile echodensity on the echo, recent transthoracic echocardiogram questionable for endocarditis. 2. History of cirrhosis. 3. End-stage liver disease with hematemesis. 4. Anemia. PLAN It is unclear whether he has seating of the mitral valve with mobile vegetation. For question of fpc antibiotic therapy he will need more definitive diagnosed. We discussed the case with gastrointestinal who cleared the patient to undergo transesophageal echocardiogram with his history of prior varices. We will make him n.p.o. after midnight and plan for RAZA tomorrow morning. MD STEPAN Montes/FREDERICK /3:59 PM /8:30 AM
--- NOTE | 2017-06-01 09:28 | PD.CARD.PN ---
Subjective Subjective Remarks doing well no complaints Objective Medications Active Medications Spironolactone (Aldactone) 50 mg BID@,18 PO Last administered on 06/01/17t 08: 23; Admin Dose 50 MG; Start 05/31/17 at 18:00 Vital Signs / I&O Vital Signs Date Time Temp Pulse Resp B/P Pulse Ox O2 Delivery O2 Flow Rate FiO2 06/01/17 08:00 97.9 83 18 105/58 98 06/01/17 04:10 98.4 93 16 106/59 97 06/01/17 00:00 Room Air 05/31/17 23:13 98.2 98 16 109/59 98 05/31/17 20:50 98.2 91 16 103/59 98 05/31/17 20:50 98.2 91 16 103/59 98 05/31/17 20:00 88 05/31/17 19:15 Room Air 05/31/17 16:00 96.0 92 20 115/55 100 05/31/17 12:00 98.2 88 20 111/58 99 05/31/17 11:48 Room Air I/O 05/31/17 05/31/17 05/31/17 06/01/17 06/01/17 06/01/17 07:00 15:00 23:00 07:00 15:00 23:00 Intake Total 600 ml 1134 ml 240 ml Output Total 700 ml 850 ml 825 ml 1275 ml Balance -700 ml -250 ml 309 ml -1035 ml Intake Oral 600 ml 980 ml 240 ml IV Total 154 ml Output Urine Total 700 ml 850 ml 825 ml 1275 ml # Bowel Movements 0 1 0 Physical Exam GENERAL: SKIN: Warm and dry. HEAD: Normocephalic. EYES: No scleral icterus. No injection or drainage. NECK: Supple, trachea midline. No JVD or lymphadenopathy. CARDIOVASCULAR: Regular rate and rhythm without murmurs, gallops, or rubs. RESPIRATORY: Breath sounds equal bilaterally. No accessory muscle use. GASTROINTESTINAL: Abdomen soft, non-tender, nondistended. MUSCULOSKELETAL: No cyanosis, or edema. BACK: Nontender without obvious deformity. No CVA tenderness. Laboratory Laboratory Tests Test 06/01/17 06:00 White Blood Count 3.3 TH/MM3 Red Blood Count 2.82 MIL/MM3 Hemoglobin 9.8 GM/DL Hematocrit 28.4 % Mean Corpuscular Volume 100.8 FL Mean Corpuscular Hemoglobin 34.9 PG Mean Corpuscular Hemoglobin 34.6 % Concent Red Cell Distribution Width 18.8 % Platelet Count 60 TH/MM3 Mean Platelet Volume 8.6 FL Neutrophils (%) (Auto) 68.8 % Lymphocytes (%) (Auto) 15.6 % Monocytes (%) (Auto) 11.1 % Eosinophils (%) (Auto) 3.3 % Basophils (%) (Auto) 1.2 % Neutrophils # (Auto) 2.2 TH/MM3 Lymphocytes # (Auto) 0.5 TH/MM3 Monocytes # (Auto) 0.4 TH/MM3 Eosinophils # (Auto) 0.1 TH/MM3 Basophils # (Auto) 0.0 TH/MM3 CBC Comment AUTO DIFF Imaging Last Impressions Thoracentesis 05/29/17 0600 Signed Impressions: Service Date/Time: Monday, May 29, 2017 11:17 - CONCLUSION: Uncomplicated CT-guided thoracentesis. There is good reexpansion of the right lung. Hamlet Nicholson MD FACR Chest X-Ray 05/29/17 0000 Signed Impressions: Service Date/Time: Monday, May 29, 2017 12:25 - CONCLUSION: Negative for pneumothorax following right thoracentesis. Hamlet Nicholson MD FACR Chest CT 05/27/17 0000 Signed Impressions: Service Date/Time: Saturday, May 27, 2017 15:22 - CONCLUSION: 1. Large loculated right pleural effusion. Moderate-sized free-flowing left pleural effusion. Both effusions would be amenable to ultrasound or CT image guided drainage. 2. No pericardial effusion. No adenopathy. 3. Liver cirrhosis. Mild anasarca. Gallstones. Toño Glez MD Abdomen Ultrasound 05/26/17 0000 Signed Impressions: Service Date/Time: Friday, May 26, 2017 23:41 - CONCLUSION: No significant ascites is identified. Stuart Carlson MD Celiac/Hepatic Arteriogram 05/24/17 0000 Signed Impressions: Service Date/Time: Wednesday, May 24, 2017 14:23 - CONCLUSION: No suspicious arterial vascular findings. Some filling of left gastric varices on splenoportography. Carlos Self MD Assessment and Plan Assessment and Plan RAZA - compete. Normal LV function. mild mitral valve sclerosis of subvalvular apparatus. No vegetations noted. small insignificant PFO. trace TR will sign off call with further questions Stuart Oden MD Jun 01, 2017 09:27
[2017-06-01] MEDS ORDERED: MISCELLANEOUS NURSING INFORMATION XX PRN (09:30)
[2017-06-01 09:33] LABS: BANDS 4 % (0-6); BASOPHILS 2 % (0-2); EOSINOPHILS 2 % (0-4); METAMYELOCYTES 1 % (0-1); NEUTROPHIL # MANUAL DIFF 2.6 TH/MM3 (1.8-7.7); POLYS (SEG NEUTROPHILS) 73 % (16-70); WBC DIFF SAMPLE 100
[2017-06-01 09:35] LABS: ACANTHOCYTES 2+ (NORMAL); PLATELET ESTIMATE SMEAR LOW (NORMAL); PLATELET MORPHOLOGY NORMAL (NORMAL)
[2017-06-01 09:36] LABS: SCAN/DIFF FINAL DIFF MANUAL
--- NOTE | 2017-06-01 10:27 | PD.ONC.PN ---
Subjective Subjective Remarks Afebrile overnight Just returned from getting RAZA Per patient, the procedure went smoothly with no complications Objective Data Date Time Temp Pulse Resp B/P Pulse Ox O2 Delivery O2 Flow Rate FiO2 06/01/17 08:00 97.9 83 18 105/58 98 06/01/17 04:10 98.4 93 16 106/59 97 06/01/17 00:00 Room Air 05/31/17 23:13 98.2 98 16 109/59 98 05/31/17 20:50 98.2 91 16 103/59 98 05/31/17 20:50 98.2 91 16 103/59 98 05/31/17 20:00 88 05/31/17 19:15 Room Air 05/31/17 16:00 96.0 92 20 115/55 100 05/31/17 12:00 98.2 88 20 111/58 99 05/31/17 11:48 Room Air 06/01/17 06/01/17 06/01/17 07:00 15:00 23:00 Intake Total 240 ml Output Total 1275 ml Balance -1035 ml Result Diagram: 06/01/17 0600 05/28/17 0950 Laboratory Results Laboratory Tests Test 06/01/17 06:00 White Blood Count 3.3 TH/MM3 Red Blood Count 2.82 MIL/MM3 Hemoglobin 9.8 GM/DL Hematocrit 28.4 % Mean Corpuscular Volume 100.8 FL Mean Corpuscular Hemoglobin 34.9 PG Mean Corpuscular Hemoglobin 34.6 % Concent Red Cell Distribution Width 18.8 % Platelet Count 60 TH/MM3 Mean Platelet Volume 8.6 FL Neutrophils (%) (Auto) 68.8 % Lymphocytes (%) (Auto) 15.6 % Monocytes (%) (Auto) 11.1 % Eosinophils (%) (Auto) 3.3 % Basophils (%) (Auto) 1.2 % Neutrophils # (Auto) 2.2 TH/MM3 Lymphocytes # (Auto) 0.5 TH/MM3 Monocytes # (Auto) 0.4 TH/MM3 Eosinophils # (Auto) 0.1 TH/MM3 Basophils # (Auto) 0.0 TH/MM3 CBC Comment AUTO DIFF Differential Total Cells 100 Counted Neutrophils % (Manual) 73 % Band Neutrophils % 4 % Lymphocytes % 13 % Monocytes % 5 % Eosinophils % 2 % Basophils % 2 % Neutrophils # (Manual) 2.6 TH/MM3 Metamyelocytes 1 % Differential Comment FINAL DIFF MANUAL Platelet Estimate LOW Platelet Morphology Comment NORMAL Acanthocytes 2+ Culture Results Microbiology Date/Time Procedure Status Source Growth 05/29/17 11:30 Gram Stain - Final Complete Fluid Pleural Fluid 05/29/17 11:30 Body Fluid Culture - Final Complete Fluid Pleural Fluid NO GROWTH IN 72 HRS.--AEROBICALLY OR ... 05/29/17 11:30 Acid Fast Stain - Final Resulted Fluid Pleural Fluid NO ACID FAST BACILLI SEEN 05/29/17 11:30 Mycobacterial Culture Resulted Fluid Pleural Fluid Pending 05/29/17 11:30 Fungal Smear - Final Resulted Fluid Pleural Fluid NO FUNGAL ELEMENTS SEEN. 05/29/17 11:30 Fungal Culture Resulted Fluid Pleural Fluid Pending Administered Medications Medications (Trade) Dose Ordered Sig/Armida Route PRN Reason Start Time Stop Time Status Last Admin Dose Admin Sodium Chloride (NS Flush) 2 ml UNSCH PRN IVF FLUSH AFTER USING IV ACCESS 05/23/17 15:45 05/28/17 22:51 Metronidazole (Flagyl) 500 mg Q8HR PO 05/25/17 14:00 06/01/17 06:09 Lorazepam (Ativan) 0.5 mg Q12H PRN PO ANXIETY 05/26/17 17:00 05/31/17 23:13 Docusate Sodium (Colace) 100 mg BID PO 05/27/17 12:00 06/01/17 08:23 Magnesium Hydroxide (Milk Of Magnesia Liq) 30 ml DAILY PRN PO constipation 05/27/17 12:00 05/27/17 13:06 Pantoprazole Sodium 40 mg 40 mg DAILY PO 05/28/17 09:00 06/01/17 08:23 Ceftriaxone Sodium/Sodium Chloride (Rocephin Inj/NS Inj) 100 ml @ 200 mls/hr Q24H IV 05/28/17 21:00 05/31/17 21:32 Spironolactone (Aldactone) 50 mg BID@,18 PO 05/31/17 18:00 06/01/17 08:23 Objective Remarks GENERAL: Well appearing middle aged male in no acute distress. SKIN: Warm and dry. HEAD: Normocephalic. EYES: No injection or drainage. NECK: Supple, trachea midline. CARDIOVASCULAR: +S1/S2. RESPIRATORY: Clear anteriorly. Breathing unlabored. GASTROINTESTINAL: Abdomen soft, non-tender, nondistended. EXTREMITIES: No cyanosis. No edema. NEUROLOGICAL: Aox3, normal speech. Moving all extremities. Assessment/Plan Problem List: (1) Pancytopenia Status: Acute Plan: --monitor, no transfusion needed at present. --multifactorial due to cirrhosis + gi bleed (2) GI bleed Status: Acute Plan: -- Upper endoscopy showed some mild esophageal varices but no active bleeding --CBC stable --GI following (3) Pleural effusion on right Status: Acute Plan: --s/p thoracentesis, cytology pending (4) Sepsis Status: Acute Plan: --on abx. --ID following Assessment 61-year-old male with alcoholics cirrhosis admitted with GI bleeding. Hematology consulted for pancytopenia Plan 1. RAZA completed today. No vegetations noted. 2. CBC much improved; continue to monitor periodically 3. Would recommend transfuse platelets for levels less than 50,000 for future procedures Attending Statement The exam, history, and the medical decision-making described in the above note were completed with the assistance of the mid-level provider. I reviewed and agree with the findings presented. I attest that I had a [id number] encounter with the patient on the same day, and personally performed and documented my assessment and findings in the medical record. No bleeding. CBC fluctuating. No neutropenia. Continue to monitor, Vera Corona Jun 01, 2017 10:27 Silvestre Hernandez MD Jun 01, 2017 13:41
--- NOTE | 2017-06-01 11:27 | ECHRPT ---
Indication: Acute and subacute endocarditis, unspecified CONCLUSIONS The transesophageal study is normal by two-dimensional, color flow imaging and Doppler interrogation . BP: / HR: Rhythm: Sinus MEASUREMENTS (Male / Female) Normal Values Technical Quality:Excellent DOPPLER TR Peak Velocity 211.0 cm/s TR Peak Gradient 17.8 mmHg Medications Complications There were no complications prior to, during or in recovery from the transesophag eal echocardiogram.. Proc. Components FINDINGS LEFT VENTRICLE Normal left ventricular size and wall thickness. The left ventricular systolic function is normal wi th an estimated ejection fraction in the range of 60-65%. Left ventricular diastolic function parameters a re normal. RIGHT VENTRICLE Normal right ventricular size and systolic function. LEFT ATRIUM The left atrial size is normal. RIGHT ATRIUM The right atrial size is normal. ATRIAL APPENDAGES Normal left atrial appendage size with no evidence of thrombus formation. ATRIAL SEPTUM Normal atrial septal thickness without atrial level shunting by limited color doppler interrogation. AORTA The aortic root and proximal ascending aorta are normal in size on limited imaging. MITRAL VALVE Structurally normal mitral valve. No mitral valve stenosis or regurgitation. Mild thickening of the mitral valve leaflets and subvalvular appartatus. AORTIC VALVE Trileaflet aortic valve. No aortic valve stenosis or regurgitation. VESSELS The inferior vena cava is normal in size. PULMONARY VALVE The pulmonary valve is not well visualized. PERICADIUM No pericardial effusion. Stuart Oden MD, FACC (Electronically Signed) Final Date:01 June 2017 11:26
[2017-06-01 12:00] VITALS: BP 102/59; PULSE 85; RESP 20; TEMP 97.9; O2SAT 97
[2017-06-01] MEDS ORDERED: LEVA750T9 PO (14:59)
--- NOTE | 2017-06-01 15:03 | HHI.PR ---
Addendum to Inpatient Note Addendum Reason: Additional Documentation Additional Information D/W DC home on oral levaquin for 4 weeks. High risk for Cdiff but pt wants to avoid IV lines. RAZA negative CTS no plans for surgery. Follow up with Dr.Reba Huerta in [address]Reba Huerta Barbara Kong MD Jun 01, 2017 15:03
[2017-06-01] MEDS ORDERED: ALDA50TA2 PO (15:33)
--- NOTE | 2017-06-01 15:35 | HHI.DCPOC ---
Discharge Care Plan Diagnosis: (1) Pneumonia (2) Cirrhosis (3) E coli bacteremia (4) Pleural effusion on right Goals to Promote Your Health * To prevent worsening of your condition and complications * To maintain your health at the optimal level Directions to Meet Your Goals Take your medications as prescribed Follow your dietary instruction Follow activity as directed Keep your appointments as scheduled Take your immunizations and boosters as scheduled If your symptoms worsen call your PCP, if no PCP go to Urgent Care Center or Emergency Room Smoking is Dangerous to Your Health. Avoid second hand smoke Call the 24-hour hour crisis hotline for domestic abuse at Ros Brar MD Jun 01, 2017 15:35
--- NOTE | 2017-06-01 15:36 | HHI.DS ---
Discharge Summary Admission Date May 23, 2017 at 18:41 Discharge Date: Jun 01, 2017 Admitting Diagnosis GI bleed; hematemesis (1) E coli bacteremia ICD Code: R78.81 Diagnosis: Principal (2) Pneumonia ICD Code: J18.9 Diagnosis: Principal (3) Cirrhosis ICD Code: K74.60 Diagnosis: Secondary (4) Pleural effusion on right ICD Code: J90 Diagnosis: Principal (5) Alcoholic cirrhosis ICD Code: K70.30 Diagnosis: Secondary (6) Upper GI bleed ICD Code: K92.2 Diagnosis: Principal (7) Thrombocytopenia ICD Code: D69.6 Diagnosis: Secondary Procedures 05/23 EGDwith findings of Samayoa's and suspect deulafoy lesion 05/24 celiac and SMA angiography 05/29- right thoracentesis- 1.3 L out Brief History - From Admission Written by Mirtha Woo, acting as scribe for Dr. Fontenot on 05/23/17 at 22:34. Looked poorly to family in a.m. [place] cramp in abdomen and "burping" sensation. Vomited a little bit. Went to bed. At about 1 p.m. felt dizzy. Threw up again - about half a cup - it was very dark emesis. At about 2:30 p.m. he was feeling nauseated, vomited, again it was dark and he phoned EMS. In the ER, he vomited blood. On way to floor vomited "bright, fresh, blood". He says he saw Dr. Mosley after admission and the plan is for EGD in a.m. Denies pain. Stools not black or red. Denies fever. He says he's a patient at [facility] for transplant and his last MELD was 23. An endoscopy 12 weeks ago showed esophageal varices. . CBC/BMP: 06/01/17 0600 05/28/17 0950 Significant Findings Laboratory Tests Test 05/30/17 05/31/17 06/01/17 09:53 06:30 06:00 White Blood Count 2.8 TH/MM3 2.0 TH/MM3 3.3 TH/MM3 (4.0-11.0) (4.0-11.0) (4.0-11.0) Red Blood Count 2.43 MIL/MM3 2.15 MIL/MM3 2.82 MIL/MM3 (4.50-5.90) (4.50-5.90) (4.50-5.90) Hemoglobin 8.4 GM/DL 7.5 GM/DL 9.8 GM/DL (13.0-17.0) (13.0-17.0) (13.0-17.0) Hematocrit 24.1 % 21.5 % 28.4 % (39.0-51.0) (39.0-51.0) (39.0-51.0) Mean Corpuscular Hemoglobin 34.8 PG 34.7 PG 34.9 PG (27.0-34.0) (27.0-34.0) (27.0-34.0) Red Cell Distribution Width 18.6 % 18.9 % 18.8 % (11.6-17.2) (11.6-17.2) (11.6-17.2) Platelet Count 43 TH/MM3 40 TH/MM3 60 TH/MM3 (150-450) (150-450) (150-450) Monocytes (%) (Auto) 13.5 % 11.1 % (0.0-8.0) (0.0-8.0) Lymphocytes # (Auto) 0.5 TH/MM3 0.5 TH/MM3 (1.0-4.8) (1.0-4.8) Platelet Estimate LOW (NORMAL) LOW (NORMAL) LOW (NORMAL) Ovalocytes 1+ (NORMAL) Acanthocytes 1+ (NORMAL) 2+ (NORMAL) Neutrophils % (Manual) 71 % (16-70) 73 % (16-70) Monocytes % 9 % (0-8) Neutrophils # (Manual) 1.4 TH/MM3 (1.8-7.7) Tear Drop Cells 1+ (NORMAL) Mean Corpuscular Volume 100.8 FL (80.0-100.0) Imaging Last Impressions Thoracentesis 05/29/17 0600 Signed Impressions: Service Date/Time: Monday, May 29, 2017 11:17 - CONCLUSION: Uncomplicated CT-guided thoracentesis. There is good reexpansion of the right lung. Hamlet Nicholson MD FACR Chest X-Ray 05/29/17 0000 Signed Impressions: Service Date/Time: Monday, May 29, 2017 12:25 - CONCLUSION: Negative for pneumothorax following right thoracentesis. Hamlet Nicholson MD FACR Chest CT 05/27/17 0000 Signed Impressions: Service Date/Time: Saturday, May 27, 2017 15:22 - CONCLUSION: 1. Large loculated right pleural effusion. Moderate-sized free-flowing left pleural effusion. Both effusions would be amenable to ultrasound or CT image guided drainage. 2. No pericardial effusion. No adenopathy. 3. Liver cirrhosis. Mild anasarca. Gallstones. Toño Glez MD Abdomen Ultrasound 05/26/17 0000 Signed Impressions: Service Date/Time: Friday, May 26, 2017 23:41 - CONCLUSION: No significant ascites is identified. Stuart Carlson MD Celiac/Hepatic Arteriogram 05/24/17 0000 Signed Impressions: Service Date/Time: Wednesday, May 24, 2017 14:23 - CONCLUSION: No suspicious arterial vascular findings. Some filling of left gastric varices on splenoportography. Carlos Self MD PE at Discharge General awake and alert, Respiratory: Mild right basilar crackles otherwise clear to auscultation. Cardiovascular: Regular rate and rhythm no rubs murmurs or gallops Abdomen soft nondistended and nontender, no hepatosplenomegaly. Pt update on day of discharge Follow-up for pneumonia and pleural effusion Patient has no complaints. He denies any shortness of breathing. Patient stated that he feels great and wants to go home. He stated that he does not know why he still here. He remains afebrile. He has no other complaints. Hospital Course 61 y/o Male with a history of cirrhosis, end-stage liver disease, esophageal varices, portal gastropathy who came to ER after abdominal pain and vomit dark emesis Patient had an EGD done on 05/23/2017with findings of Distal esophageal Samayoa esophagus, and grade 1-2 varices,no ulcers, - No active bleed mucosa does not appear Edematous duodenum normal, suspected by GI specialist Dieulafoy lesion, GI also recommended to consider future TIPS, started on Aldactone. Hemoglobin was relatively stable throughout his hospital course. During hospitalization workup showed bilateral pleural effusion right greater than left some loculated. He had a thoracentesis 7/3- 1.3 L out, recurrent US no significant ascites. Infectious Disease was put on Rocephin. Cardiac thoracic surgery was consulted and they did not recommend any procedure. Dr. bowman straightedge worker was also consulted and following. During infectious workup one out of 4 blood cultures was positive for Escherichia coli. Repeat blood cultures negative. Echo was done which was suspicious nobile vegetation - Mitral Valve on Echo, Cardiomyopathy EF 45 %. So tube washer was consulted in RAZA was done which was negative. Patient Lasix was held due to his low blood pressure. Per GI upon discharge do not restart Lasix and patient can follow-up as outpatient to see if able to resume Lasix. Patient showed no signs of edema. He was euvolemic. Patient also had pancytopenia secondary to liver disease which was stable. Per stacker Dr. Hernandez he will need platelet transfusion for any procedure. At the time of discharge patient was put on Levaquin by infectious disease for 4 weeks. Patient was told to follow-up with infectious disease in 2 weeks. Pt Condition on Discharge: Good Discharge Disposition: Discharge Home Discharge Time: <= 30 minutes Discharge Instructions DIET: Follow Instructions for: As Tolerated, No Restrictions Activities you can perform: Regular-No Restrictions Follow up Referrals: Gastroenterology - 2 Weeks Infectious Disease @ [facility] with MD Dr.Reba Bradley Ratliff Phone: PCP Follow-up New Medications: Levofloxacin (Levaquin) 750 Mg Tablet 750 MG PO DAILY bacteremia,empyema Days 28 Ref 0 TAB Pantoprazole (Pantoprazole) 40 Mg Tab 40 MG PO DAILY samayoa's esophagis #30 Ref 0 TAB Spironolactone (Aldactone) 50 Mg Tab 50 MG PO BID@,18 cirrhosis #60 Ref 0 TAB Continued Medications: Calcium Citrate/Vitamin D3 (Calcium Citrate - Vit D Tablet) 1 Each Tablet 1 TAB PO DAILY Multiple Vitamins W/ Minerals (Centrum Silver Adult 50+) 1 Tab Tab 1 TAB PO DAILY Vitamin A (Vitamin A) 8,000 Unit Capsule 8000 UNITS PO DAILY Zinc Gluconate (Zinc) 50 Mg Tab 50 MG PO DAILY Discontinued Medications: Furosemide (Lasix) 20 Mg Tab 20 MG PO DAILY #30 Ref 0 TAB Nadolol (Nadolol) 40 Mg Tab 40 MG PO DAILY #30 Ref 0 TAB Spironolactone (Spironolactone) 100 Mg Tab 100 MG PO DAILY #30 Ref 0 TAB Ros Brar MD Jun 01, 2017 15:36
[2017-06-01] MEDS ORDERED: PANT40TA3 PO (15:37)
--- NOTE | 2017-06-01 16:23 | HHI.DCPOC ---
Discharge Care Plan Diagnosis: (1) E coli bacteremia (2) Pneumonia (3) Cirrhosis (4) Pleural effusion on right Goals to Promote Your Health * To prevent worsening of your condition and complications * To maintain your health at the optimal level Directions to Meet Your Goals Take your medications as prescribed Follow your dietary instruction Follow activity as directed Keep your appointments as scheduled Take your immunizations and boosters as scheduled If your symptoms worsen call your PCP, if no PCP go to Urgent Care Center or Emergency Room Smoking is Dangerous to Your Health. Avoid second hand smoke Call the 24-hour hour crisis hotline for domestic abuse at Ros Brar MD Jun 01, 2017 16:23
== END 2017-06-01 16:25 | disposition home or self-care (01) | DRG 377 ==
LOC: NEPE 15:17 → NEDA 18:41 → N04B 20:17
PROVIDERS: ADMIT Family Medicine; ATTEND Family Medicine
PROC: 0W993ZZ Drainage of Right Pleural Cavity, Percutaneous Approach (ICD-10-PCS; 2017-05-23)
PROC: 30253N1 (ICD-10-PCS; 2017-05-23)
PROC: B4141ZZ Fluoroscopy of Superior Mesenteric Artery using Low Osmolar Contrast (ICD-10-PCS; 2017-05-24)
PROC: 0DJ08ZZ Inspection of Upper Intestinal Tract, Via Natural or Artificial Opening Endoscopic (ICD-10-PCS; principal; 2017-05-24 11:15)
DX: K92.0 Hematemesis (principal); J18.9 Pneumonia, unspecified organism; A41.50 Gram-negative sepsis, unspecified; J90 Pleural effusion, not elsewhere classified; D61.818 Other pancytopenia; D68.9 Coagulation defect, unspecified; I42.9 Cardiomyopathy, unspecified; K76.6 Portal hypertension; D62 Acute posthemorrhagic anemia; K70.30 Alcoholic cirrhosis of liver without ascites; K72.90 Hepatic failure, unspecified without coma; Z87.442 Personal history of urinary calculi; I85.00 Esophageal varices without bleeding; K31.89 Other diseases of stomach and duodenum; B96.20 Unspecified Escherichia coli [E. coli] as the cause of diseases classified elsewhere; K92.1 Melena; K22.70 Barrett's esophagus without dysplasia; F10.10 Alcohol abuse, uncomplicated; I10 Essential (primary) hypertension; I86.4 Gastric varices; K21.9 Gastro-esophageal reflux disease without esophagitis; K44.9 Diaphragmatic hernia without obstruction or gangrene; K59.00 Constipation, unspecified; K80.20 Calculus of gallbladder without cholecystitis without obstruction; Z87.891 Personal history of nicotine dependence
CPT/HCPCS: 32555; 36245; 36246; 36430; 71010; 71030; 71250; 75726; 75774; 76705; 76937; 80048; 80053; 80074; 80076; 81001; 82150; 82247; 82565; 82728; 83540; 83550; 83605; 83615; 83690; 83986; 84466; 85007; 85014; 85018; 85025; 85027; 85610; 85730; 86703; 86850; 86900; 86901; 86920; 87015; 87040; 87070; 87102; 87116; 87149; 87186; 87205; 87206; 89051; 93306; 93312; 93320; 93325; 96361; 96374; 96375; 99152; 99153; C1729; C1769; C1887; C1894; C9113; J0696; J1956; J2250; J2354; J2405; J3010; J7030; J7040; J7050; P9016; Q9967

== ENCOUNTER 2017-08-04 06:41 | Inpatient (IN) | payer BC ==
[2017-08-04] VITALS (30 sets, daily range): BP systolic 108–158; BP diastolic 57–84; PULSE 78–131; RESP 12–29; TEMP 97.5–98.3; O2SAT 97–100
[~2017-08-04 06:41] MED LIST changes: +ALDA50TA2 PO; +CALCTAB PO; +CHEL50TA PO; -CIPR-9 PO; +LEVA750T9 PO; +MULT1TAB PO; -NADO20TA PO; +PANT40TA3 PO; -PROT40TA PO; +VITA80003 PO
[2017-08-04] MEDS ORDERED: SODIUM CHLOR 0.9% 1000 ML INJ 1,000 ML IV SCH (07:06)
[2017-08-04] MEDS ORDERED: OCTREOTIDE 1000 MCG/ML IV SCH (07:15)
[2017-08-04] MEDS ORDERED: SODIUM CHLORIDE 0.9% FLUSH 10 ML FLUSH IVF PRN (07:15)
[2017-08-04] MEDS ORDERED: OCTREOTIDE INJ 500 MCG in SODIUM CHLORID 0.9% 500 ML INJ 500 ML IV ONE (07:15)
--- NOTE | 2017-08-04 07:29 | PD ---
HPI Chief Complaint: GI Complaint Time Seen by Provider: 07:05 Travel History International Travel<30 days: No Contact w/Intl Traveler<30days: No Traveled to known affect area: No History of Present Illness HPI This is a 61-year-old gentleman with history of alcoholic liver disease with esophageal varices, who presents today with complaints of 3 episodes of vomiting black coffee-ground emesis. The patient has had multiple admissions for the same. He states that last night he started experiencing some discomfort in his abdomen. He states he drank some water and then shortly thereafter vomited coffee-ground emesis. He states he had 3 further episodes with the last one having some maroon-colored blood. He denies any headache. He denies any dizziness. He denies any shortness of breath. He denies any melanotic stools. He does report that he is constipated. There are no other complaints time my examination. PFSH Past Medical History Hx Anticoagulant Therapy: No Anemia: Yes (thrombocytopenia ) Asthma: No Autoimmune Disease: No Anxiety: No Depression: No Heart Rhythm Problems: No Cancer: No Cardiovascular Problems: Yes (HTN ) High Cholesterol: No Chest Pain: No Congestive Heart Failure: No Cirrhosis: Yes (Cirrhosis of the liver) COPD: No Cerebrovascular Accident: No Diabetes: No Diminished Hearing: No Endocrine: No Gastrointestinal Disorders: Yes (hx of esophageal varices) GERD: No Genitourinary: Yes Headaches: No Hiatal Hernia: No Heparin Induced Thrombocytopen: No Immune Disorder: No Implanted Vascular Access Dvce: No Kidney Stones: Yes (2009) Musculoskeletal: No Neurologic: Yes Psychiatric: No Reproductive: No Respiratory: Yes (Rt chest tubes) Migraines: No Renal Failure: No Seizures: No Sickle Cell Disease: No Sleep Apnea: No Thyroid Disease: No Ulcer: No Past Surgical History AICD: No Arteriovenous Shunt: No Cardiac Surgery: No Ear Surgery: No Endocrine Surgery: No Eye Surgery: No Genitourinary Surgery: No Gynecologic Surgery: No Insulin Pump: No Joint Replacement: No Neurologic Surgery: No Oral Surgery: No Pacemaker: No Thoracic Surgery: Yes (right side chest tubes) Other Surgery: Yes (R ELBOW BONE SPUR REMOVAL, Rt chest tubes for pleural effusion Aug 2016) Social History Alcohol Use: No Tobacco Use: No Substance Use: No Allergies-Medications (Allergen,Severity, Reaction): Coded Allergies: No Known Allergies (Unverified , 08/04/17) Reported Meds & Prescriptions Reported Meds & Active Scripts Active Pantoprazole (Pantoprazole Sodium) 40 Mg Tab 40 Mg PO DAILY Aldactone (Spironolactone) 50 Mg Tab 50 Mg PO BID@ Levaquin (Levofloxacin) 750 Mg Tablet 750 Mg PO DAILY 28 Days Reported Joe Roldan Adult 50+ (Multiple Vitamins W/ Minerals) 1 Tab Tab 1 Tab PO DAILY Calcium Citrate - Vit D Tablet (Calcium Citrate/Vitamin D3) 1 Each Tablet 1 Tab PO DAILY Vitamin A 8,000 Unit Capsule 8,000 Units PO DAILY Zinc (Zinc Gluconate) 50 Mg Tab 50 Mg PO DAILY Review of Systems Except as stated in HPI: all other systems reviewed are Neg General / Constitutional: No: Fever, Chills HENT: No: Headaches, Lightheadedness, Neck Pain Cardiovascular: No: Chest Pain or Discomfort, Palpitations, Tachycardia Respiratory: No: Shortness of Breath Gastrointestinal: Positive: Nausea, Vomiting, Abdominal Pain (crampy), Hematemesis, No: Diarrhea, Hematochezia Genitourinary: No: Dysuria, Decreased Urinary Output Musculoskeletal: No: Weakness, Pain Psychiatric: No: Anxiety, Depression Physical Exam Narrative GENERAL: Well-developed well-nourished gentleman in no acute respiratory distress. SKIN: Focused skin assessment warm/dry. HEAD: Atraumatic. Normocephalic. EYES: Questionable mild scleral icterus. No injection or drainage. ENT: No nasal bleeding or discharge. Mucous membranes slightly pale and moist. NECK: Trachea midline. No JVD. Supple. CARDIOVASCULAR: Regular rate and rhythm. No murmur appreciated. RESPIRATORY: No accessory muscle use. Clear to auscultation. Breath sounds equal bilaterally. GASTROINTESTINAL: Abdomen soft, non-tender, minimally nondistended. NEUROLOGICAL: Awake and alert. No obvious cranial nerve deficits. Motor grossly within normal limits. Normal speech. PSYCHIATRIC: Appropriate mood and affect; insight and judgment normal. Data Data Last Documented VS Vital Signs Date Time Temp Pulse Resp B/P (MAP) Pulse Ox O2 Delivery O2 Flow Rate FiO2 08/04/17 08:00 118 16 158/77 (104) 97 Nasal Cannula 2.00 08/04/17 06:49 98.1 Orders Orders Complete Blood Count With Diff (08/04/17 07:06) Comprehensive Metabolic Panel (08/04/17 07:06) Lipase (08/04/17 07:06) Ammonia (08/04/17 07:06) Prothrombin Time / Inr (Pt) (08/04/17 07:06) Act Partial Throm Time (Ptt) (08/04/17 07:06) Type And Screen (08/04/17 07:06) Red Blood Cells (Rbc) (08/04/17 07:06) Chest, Single Ap (08/04/17 07:06) Ecg Monitoring (08/04/17 07:06) Iv Access Insert/Monitor (08/04/17 07:06) Oximetry (08/04/17 07:06) Sodium Chlor 0.9% 1000 Ml Inj (Ns 1000 M (08/04/17 07:06) Sodium Chloride 0.9% Flush (Ns Flush) (08/04/17 07:15) Octreotide Inj (Sandostatin Inj) (08/04/17 07:15) Octreotide Inj (Sandostatin Inj) (08/04/17 07:15) Prochlorperazine Inj (Compazine Inj) (08/04/17 08:00) Admit Order (Ed Use Only) (08/04/17 08:15) Consult Gastroenterology (08/04/17 ) Red Blood Cells (Rbc) (08/04/17 07:00) Labs Laboratory Tests Test 08/04/17 07:00 08/04/17 07:22 White Blood Count 1.6 TH/MM3 Red Blood Count 2.92 MIL/MM3 Hemoglobin 10.3 GM/DL Hematocrit 29.4 % Mean Corpuscular Volume 100.8 FL Mean Corpuscular Hemoglobin 35.2 PG Mean Corpuscular Hemoglobin Concent 34.9 % Red Cell Distribution Width 15.9 % Platelet Count 27 TH/MM3 Mean Platelet Volume 8.6 FL Neutrophils (%) (Auto) 76.1 % Lymphocytes (%) (Auto) 9.3 % Monocytes (%) (Auto) 11.4 % Eosinophils (%) (Auto) 1.2 % Basophils (%) (Auto) 2.0 % Neutrophils # (Auto) 1.2 TH/MM3 Lymphocytes # (Auto) 0.2 TH/MM3 Monocytes # (Auto) 0.2 TH/MM3 Eosinophils # (Auto) 0.0 TH/MM3 Basophils # (Auto) 0.0 TH/MM3 CBC Comment AUTO DIFF Differential Total Cells Counted 100 Neutrophils % (Manual) 74 % Band Neutrophils % 11 % Lymphocytes % 8 % Monocytes % 7 % Neutrophils # (Manual) 1.4 TH/MM3 Differential Comment FINAL DIFF MANUAL Platelet Estimate LOW Platelet Morphology Comment NORMAL Ovalocytes 1+ Acanthocytes OCC Prothrombin Time 17.8 SEC Prothromb Time International Ratio 1.6 RATIO Activated Partial Thromboplast Time 32.8 SEC Blood Urea Nitrogen 13 MG/DL Creatinine 0.56 MG/DL Random Glucose 148 MG/DL Total Protein 7.1 GM/DL Albumin 2.5 GM/DL Calcium Level 8.2 MG/DL Alkaline Phosphatase 122 U/L Aspartate Amino Transf (AST/SGOT) 56 U/L Alanine Aminotransferase (ALT/SGPT) 32 U/L Total Bilirubin 3.7 MG/DL Sodium Level 143 MEQ/L Potassium Level 4.0 MEQ/L Chloride Level 105 MEQ/L Carbon Dioxide Level 29.1 MEQ/L Anion Gap 9 MEQ/L Estimat Glomerular Filtration Rate 148 ML/MIN Lipase 194 U/L Ammonia 40 MCMOL/L MDM Medical Decision Making Medical Screen Exam Complete: Yes Emergency Medical Condition: Yes Differential Diagnosis Peptic ulcer disease versus variceal bleed versus lower GI bleed Narrative Course 61-year-old male with a history of esophageal varices, who presents here today with complaints of coffee-ground emesis since last night. The patient had 3 episodes throughout the night and this morning. The patient just had a large bright red blood episode of emesis. His hemoglobin is 10.3. His white count is less than 2. His platelet count is 27. His INR is 1.6. He has been typed and crossed for 2 units of blood. He is slightly tachycardic with a rate of 109. Blood pressure is stable at this time. He's been started on octreotide at 50 mg per hour. The case was discussed with Dr. Delilah Moreno, performance manager, who agrees to admit the patient to the intensive care service. There was a stat call out to , on-call GI physician, who will see the patient emergently. The patient has had previous variceal banding. He is nothing by mouth at this time. He'll be transfused 1 unit of FFP and 2 units of platelets. Critical Care Narrative Aggregate critical care time was 60 minutes. Time to perform other separately billable procedures was not included in the critical care time. My time did not include minutes spent treating any other patients simultaneously or on activities that did not directly contribute to the patient's treatment. The services I provided to this patient were to treat and/or prevent clinically significant deterioration that could result in: I provided critical care services requiring my management, as noted below: Chart data review, documentation time, medication orders and management, vital sign assessments/reviewing monitor data, ordering and reviewing lab tests, ordering and interpreting/reviewing x-rays and diagnostic studies, care of the patient and discussion of the patient with the admitting physicians. Diagnosis Primary Impression: Upper GI bleed Additional Impressions: Coagulopathy Thrombocytopenia Esophageal varices with hemorrhage Pancytopenia Cirrhosis Liver disease Admitting Information Admitting Physician Requests: Admit Gorge Benson MD Aug 04, 2017 07:29
[2017-08-04 07:41] LABS: AUTOMATED NEUTROPHIL # 1.2 TH/MM3 (1.8-7.7); EOSINOPHIL % 1.2 % (0.0-4.0); HEMATOCRIT 29.4 % (39.0-51.0); LYMPH % 9.3 % (9.0-44.0); LYMPHOCYTE # 0.2 TH/MM3 (1.0-4.8); MEAN CELL VOLUME 100.8 FL (80.0-100.0); MEAN CORPUSCULAR HEMOGLOBIN 35.2 PG (27.0-34.0); MEAN CORPUSCULAR HGB CONC 34.9 % (32.0-36.0); MONO % 11.4 % (0.0-8.0); NEUT % 76.1 % (16.0-70.0); PLATELET COUNT 27 TH/MM3 (150-450); RED BLOOD COUNT 2.92 MIL/MM3 (4.50-5.90); RED CELL DISTRIBUTION WIDTH 15.9 % (11.6-17.2); WHITE BLOOD COUNT 1.6 TH/MM3 (4.0-11.0)
[2017-08-04 07:49] LABS: APTT (PATIENT) 32.8 SEC (24.3-30.1); INTERNATIONAL NORMALIZED RATIO 1.6 RATIO; PROTHROMBIN TIME - PATIENT 17.8 SEC (9.8-11.6)
[2017-08-04 07:50] LABS: ANION GAP 9 MEQ/L (5-15); AST (GOT) 56 U/L (15-37); BICARBONATE 29.1 MEQ/L (21.0-32.0); BLOOD UREA NITROGEN 13 MG/DL (7-18); CHLORIDE 105 MEQ/L (98-107); GLOMERULAR FILTRATION RATE 148 ML/MIN (>89); SODIUM (NA) 143 MEQ/L (136-145)
[2017-08-04 07:52] LABS: HEMO FLAGS AUTO DIFF
[2017-08-04 07:54] LABS: ALKALINE PHOSPHATASE 122 U/L (45-117); ALT (GPT) 32 U/L (12-78); TOTAL BILIRUBIN ADULT 3.7 MG/DL (0.2-1.0)
[2017-08-04] MEDS ORDERED: PROCHLORPERAZINE INJ 10 MG/2 ML VIAL IV PUSH ONE (08:00)
--- NOTE | 2017-08-04 08:05 | RADRPT ---
EXAM DATE/TIME: 08/04/2017 07:12 [facility] COMPARISON: CHEST SINGLE AP, May 23, 2017, 15:46. INDICATIONS : Shortness of breath and hematemesis. MEDICAL HISTORY : Cirrhosis. SURGICAL HISTORY : None. ENCOUNTER: Initial ACUITY: 4 - 6 months PAIN SCORE: 0/10 LOCATION: Bilateral chest FINDINGS: There is minimal blunting of the right costophrenic sulcus, stable in the interval. The left lung is clear. Heart is minimally enlarged, pulmonary vascularity is normal. CONCLUSION: Stable chest. Hamlet Nicholson MD FACR on August 04, 2017 at 7:26 Board Certified Radiologist. This report was verified electronically.
[2017-08-04] MEDS ORDERED: SODIUM CHLOR 0.9% 250 ML INJ 250 ML IV ONE (08:30)
[2017-08-04 08:38] LABS: BANDS 11 % (0-6); NEUTROPHIL # MANUAL DIFF 1.4 TH/MM3 (1.8-7.7); POLYS (SEG NEUTROPHILS) 74 % (16-70); WBC DIFF SAMPLE 100
[2017-08-04 08:40] LABS: ACANTHOCYTES OCC (NORMAL); OVALOCYTES 1+ (NORMAL)
[2017-08-04 08:41] LABS: PLATELET ESTIMATE SMEAR LOW (NORMAL); PLATELET MORPHOLOGY NORMAL (NORMAL); SCAN/DIFF FINAL DIFF MANUAL
[2017-08-04] MEDS ORDERED: MAGNESIUM OXIDE 400 MG TAB PO PRN (08:45)
[2017-08-04] MEDS ORDERED: RESP: ALBUTEROL 2.5 MG/IPRATROPIUM 0.5 MG NEB (PRN) INH (08:45)
[2017-08-04] MEDS ORDERED: POTASSIUM PHOSPHATE MONOBASIC 500 MG TAB PO PRN (08:45)
[2017-08-04] MEDS ORDERED: ONDANSETRON HCL 4 MG/2 ML VIAL IV PUSH PRN (08:45)
[2017-08-04] MEDS ORDERED: POTASSIUM PHOSPHATE MONOBASIC 500 MG TAB PO/TUBE PRN (08:45)
[2017-08-04] MEDS ORDERED: SENNOSIDES 8.6 MG TAB PO PRN (08:45)
[2017-08-04] MEDS ORDERED: MAGNESIUM HYDROXIDE SUSP 30 ML CUP PO PRN (08:45)
[2017-08-04] MEDS ORDERED: BISACODYL 10 MG SUPP RECTAL PRN (08:45)
[2017-08-04] MEDS ORDERED: POTASSIUM CHLOR 40 MEQ PREMIX 100 ML IV PRN ×2 (08:45)
[2017-08-04] MEDS ORDERED: SODIUM PHOSPHATE INJ 30 MMOL in SODIUM CHLOR 0.9% 250 ML INJ 240 ML IV PRN (08:45)
[2017-08-04] MEDS ORDERED: POTASSIUM CHLOR 20 MEQ PREMIX 100 ML IV PRN ×2 (08:45)
[2017-08-04] MEDS ORDERED: MISCELLANEOUS NURSING INFORMATION XX SCH (08:45)
[2017-08-04] MEDS ORDERED: CHLORHEXIDINE GLUCONATE 2 % 1 PACK (2 CLOTHS) TOP PRN (08:45)
[2017-08-04] MEDS ORDERED: POTASSIUM CHLORIDE 25 MEQ EFFERVESCENT TAB PO PRN (08:45)
[2017-08-04] MEDS ORDERED: MAGNESIUM SULFATE INJ 2 GM in SODIUM CHLORIDE 0.9% INJ 96 ML IV PRN (08:45)
[2017-08-04] MEDS ORDERED: LACTULOSE SYRUP 20 GM/30 ML CUP PO PRN (08:45)
[2017-08-04] MEDS ORDERED: MAGNESIUM SULFATE INJ 4 GM in SODIUM CHLORIDE 0.9% INJ 92 ML IV PRN (08:45)
[2017-08-04] MEDS: SODIUM CHLORIDE 0.9% FLUSH 10 ML FLUSH IV FLUSH SCH ×2 (08:58→20:32)
[2017-08-04] MEDS ORDERED: SODIUM CHLOR 0.9% 1000 ML INJ 1,000 ML IV ONE (09:00)
[2017-08-04] MEDS ORDERED: FAMOTIDINE 20 MG/2 ML VIAL IV PUSH SCH (09:00)
[2017-08-04] MEDS: DOCUSATE SODIUM 50 MG/SENNA 8.6 MG TAB PO SCH ×2 (09:00→20:32)
--- NOTE | 2017-08-04 09:41 | HHI.HP ---
[facility] Service Critical Care Medicine Primary Care Physician Juan Manuel Parisi MD Admission Diagnosis Upper GI Bleed, esophageal varices, anemia, cirrhosis Diagnosis: Travel History International Travel<30 Days: No Contact w/Intl Traveler <30 Da: No Traveled to Known Affected Are: No History of Present Illness This is a 61-year-old male with history of alcoholic liver disease with esophageal varices, who presents today with complaints of 3 episodes of vomiting black coffee-ground emesis in the ED. The patient has had multiple admissions for the same diagnosis, last admission 04/2017. The patient currently has had an assessment at [facility] for liver transplantation his previous MELD score was 21. The patient is scheduled to return to [place] at the end of the year for evaluation for liver transplantation. The patient reports that last night at 11 PM he started experiencing some discomfort in his abdomen. He states he drank some water and then shortly thereafter vomited coffee-ground emesis. He states he had 3 further episodes with the last one having some maroon-colored blood. He presented to the ED at 5 AM He denies any shortness of breath. He denied any melanotic stools. Gastroenterology was consulted, Dr. Richards for evaluation. Critical care medicine was consulted for management. Upon my initial evaluation the patient was noted to be sinus tachycardia 110-118 heart rate, in no respiratory distress, with mild complaints of nausea recently being administered Compazine IV with resolved bleeding symptoms. The patient subsequently had another episode of hematemesis with approximately 400 cc of bright red blood. Patient scheduled to received 1 unit of FFP 2 units of platelets and will undergo EGD this a.m.. History PFSH Past Medical History Hx Anticoagulant Therapy: No Anemia: Yes (thrombocytopenia ) Asthma: No Autoimmune Disease: No Anxiety: No Depression: No Heart Rhythm Problems: No Cancer: No Cardiovascular Problems: Yes (HTN ) High Cholesterol: No Chest Pain: No Congestive Heart Failure: No Cirrhosis: Yes (Cirrhosis of the liver) COPD: No Cerebrovascular Accident: No Diabetes: No Diminished Hearing: No Endocrine: No Gastrointestinal Disorders: Yes (hx of esophageal varices) GERD: No Genitourinary: Yes Headaches: No Hiatal Hernia: No Heparin Induced Thrombocytopen: No Immune Disorder: No Implanted Vascular Access Dvce: No Kidney Stones: Yes (2009) Musculoskeletal: No Neurologic: Yes Psychiatric: No Reproductive: No Respiratory: Yes (Rt chest tubes) Migraines: No Renal Failure: No Seizures: No Sickle Cell Disease: No Sleep Apnea: No Thyroid Disease: No Ulcer: No Past Surgical History AICD: No Arteriovenous Shunt: No Cardiac Surgery: No Ear Surgery: No Endocrine Surgery: No Eye Surgery: No Genitourinary Surgery: No Gynecologic Surgery: No Insulin Pump: No Joint Replacement: No Neurologic Surgery: No Oral Surgery: No Pacemaker: No Thoracic Surgery: Yes (right side chest tubes) Other Surgery: Yes (R ELBOW BONE SPUR REMOVAL, Rt chest tubes for pleural effusion Aug 2016) Social History Alcohol Use: No Tobacco Use: No Substance Use: No Allergies-Medications Allergies-Medications (Allergen,Severity, Reaction): Coded Allergies: No Known Allergies (Unverified , 08/04/17) Reported Meds & Prescriptions Reported Meds & Active Scripts Active Pantoprazole (Pantoprazole Sodium) 40 Mg Tab 40 Mg PO DAILY Aldactone (Spironolactone) 50 Mg Tab 50 Mg PO BID@,18 Levaquin (Levofloxacin) 750 Mg Tablet 750 Mg PO DAILY 28 Days Reported Centrum Silver Adult 50+ (Multiple Vitamins W/ Minerals) 1 Tab Tab 1 Tab PO DAILY Calcium Citrate - Vit D Tablet (Calcium Citrate/Vitamin D3) 1 Each Tablet 1 Tab PO DAILY Vitamin A 8,000 Unit Capsule 8,000 Units PO DAILY Zinc (Zinc Gluconate) 50 Mg Tab 50 Mg PO DAILY ROS Review of Systems Except as stated in HPI: all other systems reviewed are Neg General / Constitutional: No: Fever, Chills HENT: No: Headaches, Lightheadedness, Neck Pain Cardiovascular: No: Chest Pain or Discomfort, Palpitations, Tachycardia Respiratory: No: Shortness of Breath Gastrointestinal: Positive: Nausea, Vomiting, Abdominal Pain (crampy), Hematemesis, No: Diarrhea, Hematochezia Genitourinary: No: Dysuria, Decreased Urinary Output Musculoskeletal: No: Weakness, Pain Psychiatric: No: Anxiety, Depression Past Family Social History Allergies: Coded Allergies: No Known Allergies (Unverified , 08/04/17) Physical Exam Vital Signs Vital Signs Date Time Temp Pulse Resp B/P (MAP) Pulse Ox O2 Delivery O2 Flow Rate FiO2 08/04/17 08:00 118 16 158/77 (104) 97 Nasal Cannula 2.00 08/04/17 07:00 114 16 140/66 (90) 97 Nasal Cannula 2.00 08/04/17 06:56 18 08/04/17 06:49 98.1 109 18 152/74 (100) 97 Physical Exam GENERAL: This is a well-developed well-nourished male of appropriately stated age, currently in no apparent respiratory distress SKIN: Warm and dry. No jaundice noted HEAD: Atraumatic. Normocephalic. EYES: Pupils equal and round. No scleral icterus. No injection or drainage. ENT: No nasal bleeding or discharge. Mucous membranes pink and moist. NECK: Trachea midline. No JVD. CARDIOVASCULAR: Tachycardic rate, regular rhythm. Telemetry sinus tachycardia RESPIRATORY: No accessory muscle use. Clear to auscultation. Breath sounds equal bilaterally. Nasal cannula at 2 L GASTROINTESTINAL: Abdomen soft, non-tender, nondistended. No guarding. MUSCULOSKELETAL: Extremities without clubbing, cyanosis, or edema. No obvious deformities. NEUROLOGICAL: GCS 15 .Awake and alert. RASS 0. No gross focal/sensory deficits. Cranial nerves II-XII intact .Follows commands in all 4 extremities. Laboratory Laboratory Tests Test 08/04/17 07:00 08/04/17 07:22 White Blood Count 1.6 Red Blood Count 2.92 Hemoglobin 10.3 Hematocrit 29.4 Mean Corpuscular Volume 100.8 Mean Corpuscular Hemoglobin 35.2 Mean Corpuscular Hemoglobin Concent 34.9 Red Cell Distribution Width 15.9 Platelet Count 27 Mean Platelet Volume 8.6 Neutrophils (%) (Auto) 76.1 Lymphocytes (%) (Auto) 9.3 Monocytes (%) (Auto) 11.4 Eosinophils (%) (Auto) 1.2 Basophils (%) (Auto) 2.0 Neutrophils # (Auto) 1.2 Lymphocytes # (Auto) 0.2 Monocytes # (Auto) 0.2 Eosinophils # (Auto) 0.0 Basophils # (Auto) 0.0 CBC Comment AUTO DIFF Differential Total Cells Counted 100 Neutrophils % (Manual) 74 Band Neutrophils % 11 Lymphocytes % 8 Monocytes % 7 Neutrophils # (Manual) 1.4 Differential Comment FINAL DIFF MANUAL Platelet Estimate LOW Platelet Morphology Comment NORMAL Ovalocytes 1+ Acanthocytes OCC Prothrombin Time 17.8 Prothromb Time International Ratio 1.6 Activated Partial Thromboplast Time 32.8 Blood Urea Nitrogen 13 Creatinine 0.56 Random Glucose 148 Total Protein 7.1 Albumin 2.5 Calcium Level 8.2 Alkaline Phosphatase 122 Aspartate Amino Transf (AST/SGOT) 56 Alanine Aminotransferase (ALT/SGPT) 32 Total Bilirubin 3.7 Sodium Level 143 Potassium Level 4.0 Chloride Level 105 Carbon Dioxide Level 29.1 Anion Gap 9 Estimat Glomerular Filtration Rate 148 Lipase 194 Ammonia 40 Result Diagram: 08/04/1769908/04/17 07 Imaging CXR- stable chest Septic Shock Reassessment Lungs: Clear Peripheral Pulses: Bounding Right Radial Bounding Left Radial Bounding Right Dorsalis Pedis Bounding Left Dorsalis Pedis Capillary Refill: Brisk Caprini VTE Risk Assessment Caprini VTE Risk Assessment: No/Low Risk (score <= 1) VTE Pharm Contraindication: Active bleeding Caprini Risk Assessment Model Point Value = 1 Point Value = 2 Point Value = 3 Point Value = 5 Age 41-60 Minor surgery BMI > 25 kg/m2 Swollen legs Varicose veins or History of unexplained or recurrent spontaneous Oral contraceptives or hormone replacement Sepsis (< 1 month) Serious lung disease, including pneumonia (< 1 month) Abnormal pulmonary function Acute myocardial infarction Congestive heart failure (< 1 month) History of inflammatory bowel disease Medical patient at bed rest Age 61-74 Arthroscopic surgery Major open surgery (> 45 min) Laparoscopic surgery (> 45 min) Malignancy Confined to bed (> 72 hours) Immobilizing plaster cast Central venous access Age >= 75 History of VTE Family history of VTE Factor V Leiden Prothrombin [id number] Lupus anticoagulant Anticardiolipin antibodies Elevated serum homocysteine Heparin-induced thrombocytopenia Other congenital or acquired thrombophilia Stroke (< 1 month) Elective arthroplasty Hip, pelvis, or leg fracture Acute spinal cord injury (< 1 month) Prophylaxis Regimen Total Risk Factor Score Risk Level Prophylaxis Regimen 0-1 Low Early ambulation 2 Moderate Order ONE of the following: *Sequential Compression Device (SCD) *Heparin 5000 units SQ BID 3-4 Higher Order ONE of the following medications: *Heparin 5000 units SQ TID *Enoxaparin/Lovenox 40 mg SQ daily (WT < 150 kg, CrCl > 30 mL/min) *Enoxaparin/Lovenox 30 mg SQ daily (WT < 150 kg, CrCl > 10-29 mL/min) *Enoxaparin/Lovenox 30 mg SQ BID (WT < 150 kg, CrCl > 30 mL/min) AND/OR *Sequential Compression Device (SCD) 5 or more Highest Order ONE of the following medications: *Heparin 5000 units SQ TID (Preferred with Epidurals) *Enoxaparin/Lovenox 40 mg SQ daily (WT < 150 kg, CrCl > 30 mL/min) *Enoxaparin/Lovenox 30 mg SQ daily (WT < 150 kg, CrCl > 10-29 mL/min) *Enoxaparin/Lovenox 30 mg SQ BID (WT < 150 kg, CrCl > 30 mL/min) AND *Sequential Compression Device (SCD) Assessment and Plan Assessment and Plan Neurologic: GCS 15 Avoid all sedative type medications Will avoid Tylenol secondary to possible hepatotoxicity Ammonia level 40, continue to follow trends Lactulose daily Respiratory: Maintain O2 sat greater than 92% Continue O2 2 L nasal cannula Maintain head of bed at least 30, patient high risk for aspiration Bronchodilators every 4 hours when necessary 08/04 chest [id number] Cardiovascular: Sinus tachycardia most likely secondary to acute blood loss Maintain MAP greater than 65 mmHg Will consider initiation of spironolactone, when patient is will hemodynamically clinically stable Volume resuscitate-bolus NS 1 L Renal: Hypovolemia secondary to acute blood loss Apply condom cath -- Strict I/Os FEN/GI: Recurrent Upper GI bleed Hematemesis History of esophageal Russell's esophagus with grade 1-2 esophageal varices Liver cirrhosis Maintain NPO status Scheduled for EGD this am Octreotide infusion 50 mcgs GI consulted- Dr. Maurice Verduzco, Krish for nausea The patient is being followed by [facility] for transplant initial assessment was performed 02/10 with MELD score 21. The patient is scheduled for liver transplant evaluation October 2017 MELD score 17 currently Bolused 2 L normal saline, normal saline 125 cc/hour Heme/ID: Pancytopenia Coagulopathy Keep 2 units packed red blood cells on hold, keep 2 ahead Obtain H&H every 6 hours Give 2 units of platelets now, 1 unit of FFP now. Continue to transfuse platelets for count less than 50,000 INR 1.7, Plt 27, Hgb 10 ( previous admission-patient noted to be pancytopenic with INR 1.6) Hematology oncology consulted Rocephin 2 GM q 24h Endocrine: Glucose monitoring per ICU protocol -- SSI Prophylaxis: GI Prophylaxis Octreotide infusion Pepcid DVT Prophylaxis -- SCDs No pharmacological prophylaxis in the setting of bleeding Lines: Peripheral IVs adequate access at this time Dispo: This patient remains critically ill with one or more organ systems which are or may become a threat to life. I have spent in excess of 47 minutes discontinuously in the care and management of this patient. This time is exclusive of procedures, and includes, but is not limited to, evaluation of the patient, review of the medical record, discussions with family, consultants, nursing staff, or respiratory therapy, and documentation in the medical record. Code Status Full Discussed Condition With Patient, patient's , Dr. Benson, Dr. Richards. All questions answered. Delilah Moreno MD Aug 04, 2017 09:41
--- NOTE | 2017-08-04 09:55 | PD.CONS ---
HPI History of Present Illness This is a 61 year old male with a hx of liver cirrhosis with recurrent GI bleeding, who came to the ER for evaluation of hematemesis. He was diagnosed in March of 2016 with liver cirrhosis. He quit drinking etoh at that time. He is followed at the [facility] for liver transplant evaluation and states he was last seen in January, at which time he was told that his MELD score was not high enough for transplant, but they will continue to monitor him. He was last hospitalized for GI bleeding in April of this year and underwent EGD (05/24/17)--- --> Distal esophageal Barretts esophagus and grade 1-2 varices, Stomach: no blood. No ulcers. Mucosa does not appear edematous duodenum: normal. S/P Angiogram of the Celiac, Superior Mesenteric Artery (05/24/17)---> no hemorrhagic focus identified. No further bleeding. He is currently on Protonix 40mg po daily and Spironolactone at home. He reports that he was doing well at home until last night, when he started having nausea/vomiting with coffee ground emesis. He reports that he initially felt better after the first episode and therefore was trying to wait it out to see if it happened again. He then started having nausea again and vomited black emesis again. This morning, he vomited about a pint of red blood. He denies any fever, chills , abdominal pain. He came to the ER and was found to have pancytopenia with WBC 1.6, H/H 10.3/29.4, Platelet 27,000. 2 units of Platelets and 1 unit has been ordered and was just started by the nurse. (Natalia Anderson) [facility] Past Medical History Portal Gastropathy Recurrent GI Bleeding Chronic thrombocytopenia Russell's esophagus Alicia Dyson tear Hemothorax after a fall Kidney stones Pleural effusion Liver cirrhosis Pancytopenia Past Surgical History Bone spur removed from right elbow Lithotripsy for nephrolithiasis Thoracentesis Paracentesis Chest tube placement Pleurx catheter placement Multiple EGD's (Natalia Anderson) Coded Allergies: No Known Allergies (Unverified , 08/04/17) Medications Allergies Coded Allergies Type Severity Reaction Last Updated Verified No Known Allergies 08/04/17 No Active Scripts Medications Dose Route/Sig Max Daily Dose Days Date Category Pantoprazole (Pantoprazole Sodium) 40 Mg Tab 40 Mg PO DAILY 06/01/17 Rx Aldactone (Spironolactone) 50 Mg Tab 50 Mg PO BID@09,18 06/01/17 Rx Levaquin (Levofloxacin) 750 Mg Tablet 750 Mg PO DAILY 28 06/01/17 Rx Centrum Silver Adult 50+ (Multiple Vitamins W/ Minerals) 1 Tab Tab 1 Tab PO DAILY 05/23/17 Reported Calcium Citrate - Vit D Tablet (Calcium Citrate/Vitamin D3) 1 Each Tablet 1 Tab PO DAILY 05/23/17 Reported Vitamin A 8,000 Unit Capsule 8,000 Units PO DAILY 05/23/17 Reported Zinc (Zinc Gluconate) 50 Mg Tab 50 Mg PO DAILY 05/23/17 Reported Family History Mother from breast cancer Father from CAD/ID Social History States he previously drank 6 beers per day per for 40 years but quit drinking in March 2016 Denies use of illicit drug (Natalia Anderson) Review of Systems Constitutional: COMPLAINS OF: Fatigue, DENIES: Weight loss Respiratory: DENIES: Cough Cardiovascular: DENIES: Chest pain Gastrointestinal: COMPLAINS OF: Nausea, Vomiting, Hematemesis, DENIES: Abdominal pain, Bloody stools, Constipation, Diarrhea Integumentary: DENIES: Abnormal pigmentation Hematologic/lymphatic: COMPLAINS OF: Bruising Neurologic: DENIES: Headache Psychiatric: DENIES: Confusion (Natalia Anderson) GI Exam Vitals I&O Vital Signs Date Time Temp Pulse Resp B/P (MAP) Pulse Ox O2 Delivery O2 Flow Rate FiO2 08/04/17 08:00 118 16 158/77 (104) 97 Nasal Cannula 2.00 08/04/17 07:00 114 16 140/66 (90) 97 Nasal Cannula 2.00 08/04/17 06:56 18 08/04/17 06:49 98.1 109 18 152/74 (100) 97 Laboratory Test 08/04/17 07:00 08/04/17 07:22 White Blood Count 1.6 TH/MM3 Red Blood Count 2.92 MIL/MM3 Hemoglobin 10.3 GM/DL Hematocrit 29.4 % Mean Corpuscular Volume 100.8 FL Mean Corpuscular Hemoglobin 35.2 PG Mean Corpuscular Hemoglobin Concent 34.9 % Red Cell Distribution Width 15.9 % Platelet Count 27 TH/MM3 Mean Platelet Volume 8.6 FL Neutrophils (%) (Auto) 76.1 % Lymphocytes (%) (Auto) 9.3 % Monocytes (%) (Auto) 11.4 % Eosinophils (%) (Auto) 1.2 % Basophils (%) (Auto) 2.0 % Neutrophils # (Auto) 1.2 TH/MM3 Lymphocytes # (Auto) 0.2 TH/MM3 Monocytes # (Auto) 0.2 TH/MM3 Eosinophils # (Auto) 0.0 TH/MM3 Basophils # (Auto) 0.0 TH/MM3 CBC Comment AUTO DIFF Differential Total Cells Counted 100 Neutrophils % (Manual) 74 % Band Neutrophils % 11 % Lymphocytes % 8 % Monocytes % 7 % Neutrophils # (Manual) 1.4 TH/MM3 Differential Comment FINAL DIFF MANUAL Platelet Estimate LOW Platelet Morphology Comment NORMAL Ovalocytes 1+ Acanthocytes OCC Prothrombin Time 17.8 SEC Prothromb Time International Ratio 1.6 RATIO Activated Partial Thromboplast Time 32.8 SEC Blood Urea Nitrogen 13 MG/DL Creatinine 0.56 MG/DL Random Glucose 148 MG/DL Total Protein 7.1 GM/DL Albumin 2.5 GM/DL Calcium Level 8.2 MG/DL Alkaline Phosphatase 122 U/L Aspartate Amino Transf (AST/SGOT) 56 U/L Alanine Aminotransferase (ALT/SGPT) 32 U/L Total Bilirubin 3.7 MG/DL Sodium Level 143 MEQ/L Potassium Level 4.0 MEQ/L Chloride Level 105 MEQ/L Carbon Dioxide Level 29.1 MEQ/L Anion Gap 9 MEQ/L Estimat Glomerular Filtration Rate 148 ML/MIN Lipase 194 U/L Ammonia 40 MCMOL/L Physical Examination HEENT: Normocephalic; atraumatic; no jaundice. CHEST: Resp. even/unlabored. Bases diminished CARDIAC: Regular, tachycardic, mild ABDOMEN: Soft, nondistended, nontender; hepatosplenomegaly; bowel sounds are present in all four quadrants. EXTREMITIES: No clubbing, cyanosis, or edema. SKIN: Normal; no rash; no jaundice. AGENTS' RECORDS CLERK: No focal deficits; alert and oriented times three. (Natalia Anderson) Assessment and Plan Plan ASSESSMENT: - Recurrent upper GIB, hematemesis. Hospitalized in April of 2017 and was evaluated with S/P EGD (05/24/17)-----> Distal esophageal Barretts esophagus and grade 1-2 varices, Stomach: no blood. No ulcers. Mucosa does not appear edematous duodenum: normal. S/P Angiogram of the Celiac, Superior Mesenteric Artery (05/24/17)---> no hemorrhagic focus identified. No further bleeding. HH 10.3/29.4. Plt 27 ,000, PT 17.8, INR 1.6. Octreotide, On Pepcid. NPO. Plan for egd with possible band ligation. Change pepcid to protonix gtt. - Anemia, acute blood loss. .02/22.4. - Severe thrombocytopenia, coagulopathy. Plt 27,000, PT 17.8, INR 1.6. - Liver cirrhosis. Established at [facility], Caitlin Styles . Last seen in January. - GERD, Russell's Esophagus. Protonix. PLAN: - Plan for egd with possible band ligation - Obtain consents - NPO - Change pepcid to Protonix gtt - Cont. Octreotide - Monitor labs - Transfuse as necessary - Supportive care - Further recommendations to follow based on results of above - Pt seen and examined by Dr. Marie and myself and this note is written on his behalf (Natalia Anderson) Plan Patient was seen and examined, agree with above, we will plan on doing upper endoscopy on an urgent basis today for possible banding or bleeding control. Patient was given 2 units of platelets and 1 units of FFP to correct his anticoagulation Known to have cirrhosis secondary to alcohol patient trying to quit (Rome Marie MD) Natalia Anderson Aug 04, 2017 09:55 Rome Marie MD Aug 04, 2017 11:09
[2017-08-04] MEDS: cefTRIAXone INJ 2,000 MG in SODIUM CHLORIDE 0.9% INJ 100 ML IV SCH (11:00)
[2017-08-04] MEDS ORDERED: PROPOFOL 200 MG/20 ML AMP IV ONE (11:59)
[2017-08-04] MEDS ORDERED: MIDAZOLAM HCL 2 MG/2 ML VIAL ONE (12:01)
--- NOTE | 2017-08-04 12:10 | GIPROC ---
[facility] [address] [facility]. [facility], [address] EGD PROCEDURE REPORT EXAM DATE: 08/04/2017 PATIENT NAME: Kvng Ndiaye MR #: [id number] BIRTHDATE: 1955 ATTENDING: Rome Marie MD ORDER #: [id number] RAD TECH: Veronica Richards and Rosa Patel STATUS: inpatient INDICATIONS: The patient is a 61 yr old male here for an EGD due to hematemesis PROCEDURE PERFORMED: EGD w/ control of bleeding MEDICATIONS: None and Per Anesthesia. TOPICAL ANESTHETIC: none CONSENT: The patient understands the risks and benefits of the procedure and understands that these risks include, but are not limited to: sedation, allergic reaction, infection, perforation and/or bleeding. Alternative means of evaluation and treatment include, among others: physical exam, x-rays, and/or surgical intervention. The patient elects to proceed with this endoscopic procedure. medical equipment was checked for proper function. Hand hygiene and appropriate measures for infection prevention was taken. After the risks, benefits and alternatives of the procedure were thoroughly explained, Informed consent was verified, confirmed and timeout was successfully executed by the treatment team. The patient was anesthetized with topical anesthesia and the Pentax [id number] endoscope was introduced through the mouth and advanced to the second portion of the duodenum. Retroflexed views revealed bleeding from the stomach from gastric varices in the fundus, large clot in the fundus of the stomach The gastroscope was then slowly withdrawn and removed. Grade 1-2 esophageal varices no active bleeding. Gastric varices in the fundus just 2 cm from the GE junction actively squirting blood banding is not possible in this area so injection of 6 cc of epinephrine was performed this stopped the bleeding, then will be chance of significant rebleed. The patient will remain intubated. ADVERSE EVENTS: There were no complications. IMPRESSIONS: 1. Grade 1-2 esophageal varices no active bleeding 2. Gastric varices in the fundus just 2 cm from the GE junction actively squirting blood banding is not possible in this area so injection of 6 cc of epinephrine was performed this stopped the bleeding, then will be chance of significant rebleed. The patient will remain intubated 3. Retroflexed views revealed bleeding from the stomach from gastric varices in the fundus, large clot in the fundus of the stomach RECOMMENDATIONS: Keep patient intubated Keep patient on octreotide Keep 2 units of packed RBC available. Patient needs to have platelets and FFP is as needed Check CBC every 6 hours If continued to bleed we need to consider TIPS PATIENT CONDITION: stable DISPOSITION: Inpatient REPEAT EXAM: Return as needed for EGD Patient may need repeat endoscopy if bleeding continue Rome Marie MD eSigned: Rome Marie MD 08/04/2017 12:09 PM cc: PATIENT NAME: Kvng Ndiaye MR#: [id number]
[2017-08-04] MEDS ORDERED: DO NOT ADM ANY ANTICOAGULANT DRUGS PRN (12:16)
[2017-08-04] MEDS ORDERED: DIMETHICONE/OXYBENZONE/PADMIATE LIP BALM 4.25 GM TOPICAL ONE (13:13)
[2017-08-04 13:17] LABS: HEMATOCRIT 26.5 % (39.0-51.0)
[2017-08-04 13:22] LABS: REVIEW FLAG FINAL
[2017-08-04 14:31] LABS: BLOOD GAS BASE EXCESS 2.4 mmol/L (-2-2); BLOOD GAS CARBOXYHEMOGLOBIN 1.6 % (0-4); BLOOD GAS HCO3 28 mmol/L (22-26); BLOOD GAS METHEMOGLOBIN 1.2 % (0-2); BLOOD GAS O2 HGB SATURATION 97 % (90-100); BLOOD GAS OXYGEN CONTENT 13.4 Vol % (12.0-20.0); BLOOD GAS PCO2 52 mmHg (38-42); BLOOD GAS PO2 152 mmHg (61-120); BLOOD GAS TOTAL HGB 9.6 G/DL (12.0-16.0); TEMP CORR TO 98.6
[2017-08-04 14:32] LABS: CRITICAL VALUE YES
[2017-08-04 14:33] LABS: DRAW SITE RT RADIAL; FIO2 40 %; NUMBER OF ARTERIAL PUNCTURES 1; OXYGEN DEVICE SIMV450/12/5PEEP; STAT NO; ULNAR PULSE PRESENT
[2017-08-04] MEDS ORDERED: EPINEPHrine HCL (1:1000) 1 MG/ML VIAL IV ONE (14:34)
[2017-08-04] MEDS: PANTOPRAZOLE INJ 80 MG in SODIUM CHLORIDE 0.9% INJ 100 ML IV SCH ×2 (14:41→21:49)
--- NOTE | 2017-08-04 15:34 | RADRPT ---
EXAM DATE/TIME: 08/04/2017 14:59 [place] COMPARISON: CHEST SINGLE AP, August 04, 2017, 7:12. INDICATIONS : Respiratory failure- ETT placement. MEDICAL HISTORY : Cirrhosis. SURGICAL HISTORY : None. ENCOUNTER: Subsequent ACUITY: 1 day PAIN SCORE: Non-responsive. LOCATION: Bilateral chest FINDINGS: Right lung base airspace process is present. NG tube is present with tip in the stomach. ET tube is p resent with tip overlapping approximately 9 cm above the misty. The rest of the examination has not significantly changed. CONCLUSION: Right lung base airspace process may represent pneumonia and the tip of the ET tube needs to be advan sandra. K. Yosef Christiansen MD on August 04, 2017 at 15:31 Board Certified Radiologist. This report was verified electronically.
[2017-08-04] MEDS: ARTIFICIAL TEARS OPTH SOLN 15 ML BTL EACH EYE SCH (16:00)
[2017-08-04] MEDS: fentaNYL DRIP 250 ML IV PRN (16:22)
[2017-08-04] MEDS: PROPOFOL 1000 MG/100 ML INJ 100 ML IV PRN ×2 (16:28→20:48)
--- NOTE | 2017-08-04 16:57 | MB ---
cc: PRANAY BREWSTER MD DATE OF CONSULTATION 08/04/17 REASON FOR CONSULTATION Consult requested by triage clinician for evaluation of pancytopenia. HISTORY OF PRESENT ILLNESS Kvng is a 61-year-old male. He is on the ventilator, unable to give any history. History is obtained through the review of the records. The patient has had multiple admissions to this hospital. He has alcoholic-induced liver cirrhosis. He has been admitted many times to the hospital. His last admission was in April for GI bleeding. He is now readmitted for the same GI bleeding. He underwent upper endoscopy and he was bleeding from the esophageal varices. Dr. Marie was unable to band it. The patient is now getting blood transfusion support, FFP and platelet transfusion. His CBC showed white count 1.6, hemoglobin 10.3, hematocrit 29.4, platelet count is 27. Because of the pancytopenia, I have been asked to see him for further evaluation. Reviewing the patient's previous blood test results, the patient has had chronic pancytopenia dating back to March of last year. He has multiple CBCs and he always has pancytopenia. His platelet count has been running less than 100,000. He had a CAT scan of the abdomen and pelvis which showed liver cirrhosis and enlarged spleen. The patient has been previously evaluated by my associates, Dr. Jordan and Dr. Hernandez. 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 PAST MEDICAL HISTORY 1. GI bleeding 2. Liver cirrhosis, 3. Pancytopenia 4. Alicia Dyson tear 5. Russell's esophagus 6. Recurrent GI bleeding 7. Portal gastropathy. PAST SURGICAL HISTORY 1. Lithotripsy for kidney stones 2. Thoracentesis 3. Paracentesis 4. Chest tube placement 5. PleurX catheter placement. 6. Multiple upper endoscopies for GI bleeding. ALLERGIES None. MEDICATIONS Please see EMR. FAMILY HISTORY Unable to obtain. SOCIAL HISTORY Unable to obtain. PHYSICAL EXAMINATION VITAL SIGNS: Temperature 97.5, heart rate is 108, blood pressure 125/64, O2 saturation 100%. HEENT: PERRLA, EOMI. ET-tube noted. NECK: No lymphadenopathy. LUNGS: Clear. No wheezing, rhonchi or rales. HEART: Regular rate and rhythm. ABDOMEN: Distended, ascites noted. EXTREMITIES: No pedal edema. NEUROLOGIC: The patient is sedated on the ventilator. ASSESSMENT 1. Chronic pancytopenia dating back to March of 2016. 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 2. Alcoholic cirrhosis of the liver. 3. GI bleeding from esophageal varices. PLAN I have reviewed his available records. The patient had a CBC yesterday that showed white count 1.6, hemoglobin 10.3 hematocrit 29.4, platelet count is 27. The patient has received blood, platelets and FFP support. His coags this morning showed PT is 17.8, INR is 1.6 and APTT is 32.8. The patient has coagulopathy from liver cirrhosis. My recommendation is to continue FFP support and keep the fibrinogen more than 100, if possible. Also, he has thrombocytopenia and had received platelet transfusion. Recommendation is to try to keep the platelet count above 50,000 if possible, given that he is bleeding. Once the bleeding stops, then the parameters could be changed to less than 15,000 if he is not bleeding. The patient's hemoglobin was 10.3. He had received blood transfusion and now his hemoglobin is nine. His white count is low at 1.6, but the absolute neutrophil count is 1200. He does not have any fevers so he does not need any antibiotics or Neupogen for the neutropenia. Unfortunately, there is nothing much that can be done for his pancytopenia except giving him blood and platelet support. The CAT scan does show hypersplenism with cirrhosis of the liver. We will monitor his blood counts. Further recommendations based on his hospital stay. Thank you for asking my opinion. Leah Brewster MD / /3:54 PM /4:37 PM
[2017-08-04 17:23] LABS: BLOOD GAS BASE EXCESS 4.7 mmol/L (-2-2); BLOOD GAS CARBOXYHEMOGLOBIN 1.5 % (0-4); BLOOD GAS HCO3 29 mmol/L (22-26); BLOOD GAS O2 HGB SATURATION 97 % (90-100); BLOOD GAS OXYGEN CONTENT 12.7 Vol % (12.0-20.0); BLOOD GAS PCO2 49 mmHg (38-42); BLOOD GAS PO2 218 mmHg (61-120); BLOOD GAS TOTAL HGB 8.9 G/DL (12.0-16.0); CRITICAL VALUE NO; DRAW SITE LT RADIAL; FIO2 50 %; NUMBER OF ARTERIAL PUNCTURES 1; OXYGEN DEVICE VENTILATOR; TEMP CORR TO 98.6; VENT SETTINGS AC12/500/+5
[2017-08-04 17:24] LABS: STAT NO; ULNAR PULSE PRESENT
[2017-08-04 17:46] LABS: HEMATOCRIT 27.2 % (39.0-51.0); MEAN CELL VOLUME 96.6 FL (80.0-100.0); MEAN CORPUSCULAR HEMOGLOBIN 33.4 PG (27.0-34.0); MEAN CORPUSCULAR HGB CONC 34.6 % (32.0-36.0); RED BLOOD COUNT 2.81 MIL/MM3 (4.50-5.90); RED CELL DISTRIBUTION WIDTH 18.3 % (11.6-17.2); WHITE BLOOD COUNT 2.2 TH/MM3 (4.0-11.0)
[2017-08-04 17:56] LABS: INTERNATIONAL NORMALIZED RATIO 1.6 RATIO; PROTHROMBIN TIME - PATIENT 17.8 SEC (9.8-11.6)
[2017-08-04 18:13] LABS: PLATELET COUNT 34 TH/MM3 (150-450); REVIEW FLAG FINAL
[2017-08-04] MEDS ORDERED: CHLORHEXIDINE 0.12% (ORAL KIT) 15 ML CUP MT SCH (20:00)
[2017-08-04] MEDS: OCTREOTIDE 500 MCG/NS 500 ML - 50 mcg/hr IV SCH ×2 (20:31)
[2017-08-04] MEDS: CHLORHEXIDINE 0.12% (ORAL KIT) 15 ML CUP MT SCH (20:32)
[2017-08-05] VITALS (19 sets, daily range): BP systolic 100–135; BP diastolic 55–66; PULSE 67–94; RESP 12–15; TEMP 97.9–98.6; O2SAT 97–100
[2017-08-05] MEDS: ARTIFICIAL TEARS OPTH SOLN 15 ML BTL EACH EYE SCH ×3 (00:48→15:50)
[2017-08-05] MEDS: SODIUM CHLOR 0.9% 1000 ML INJ 1,000 ML IV SCH ×2 (00:49→10:03)
[2017-08-05] MEDS: PROPOFOL 1000 MG/100 ML INJ 100 ML IV PRN ×4 (02:13→22:03)
[2017-08-05 03:00] LABS: AUTOMATED NEUTROPHIL # 1.3 TH/MM3 (1.8-7.7); BASOPHIL % 0.4 % (0.0-2.0); EOSINOPHIL # 0.1 TH/MM3 (0-0.4); EOSINOPHIL % 4.2 % (0.0-4.0); HEMATOCRIT 23.8 % (39.0-51.0); LYMPH % 14.5 % (9.0-44.0); LYMPHOCYTE # 0.3 TH/MM3 (1.0-4.8); MEAN CELL VOLUME 96.2 FL (80.0-100.0); MEAN CORPUSCULAR HEMOGLOBIN 32.7 PG (27.0-34.0); MONO % 7.7 % (0.0-8.0); NEUT % 73.2 % (16.0-70.0); PLATELET COUNT 53 TH/MM3 (150-450); RED BLOOD COUNT 2.48 MIL/MM3 (4.50-5.90); RED CELL DISTRIBUTION WIDTH 18.4 % (11.6-17.2); WHITE BLOOD COUNT 1.7 TH/MM3 (4.0-11.0)
[2017-08-05 03:08] LABS: HEMO FLAGS AUTO DIFF
[2017-08-05 03:17] LABS: INTERNATIONAL NORMALIZED RATIO 1.4 RATIO; PROTHROMBIN TIME - PATIENT 15.5 SEC (9.8-11.6)
[2017-08-05] MEDS: CHLORHEXIDINE GLUCONATE 2 % 1 PACK (2 CLOTHS) TOP SCH (04:00)
[2017-08-05 04:01] LABS: BANDS 4 % (0-6); EOSINOPHILS 4 % (0-4); KERATOCYTES OCC (NORMAL); NEUTROPHIL # MANUAL DIFF 1.4 TH/MM3 (1.8-7.7); OVALOCYTES 1+ (NORMAL); PLATELET ESTIMATE SMEAR LOW (NORMAL); PLATELET MORPHOLOGY NORMAL (NORMAL); POLYS (SEG NEUTROPHILS) 77 % (16-70); SCAN/DIFF FINAL DIFF MANUAL; WBC DIFF SAMPLE 100
[2017-08-05 04:30] LABS: BICARBONATE 31.7 MEQ/L (21.0-32.0); MAGNESIUM 1.6 MG/DL (1.5-2.5); POTASSIUM 3.5 MEQ/L (3.5-5.1); TOTAL BILIRUBIN ADULT 3.4 MG/DL (0.2-1.0)
[2017-08-05] MEDS: OCTREOTIDE 500 MCG/NS 500 ML - 50 mcg/hr IV SCH ×4 (06:06→16:10)
[2017-08-05] MEDS: POTASSIUM PHOSPHATE INJ 30 MMOL in SODIUM CHLOR 0.9% 250 ML INJ 250 ML IV PRN (06:06)
[2017-08-05] MEDS: DOCUSATE SODIUM 50 MG/SENNA 8.6 MG TAB PO SCH ×2 (09:00→21:00)
[2017-08-05] MEDS: SODIUM CHLORIDE 0.9% FLUSH 10 ML FLUSH IV FLUSH SCH ×2 (10:02→21:00)
[2017-08-05] MEDS: CHLORHEXIDINE 0.12% (ORAL KIT) 15 ML CUP MT SCH ×2 (10:02→20:00)
[2017-08-05] MEDS: cefTRIAXone INJ 2,000 MG in SODIUM CHLORIDE 0.9% INJ 100 ML IV SCH (10:03)
--- NOTE | 2017-08-05 13:30 | PD.ONC.PN ---
Subjective Subjective Remarks Afebrile Per RN, rec'd platelets overnight No obvious jocelyne bleeding Dark emesis from NGT suction Objective Data Date Time Temp Pulse Resp B/P (MAP) Pulse Ox O2 Delivery O2 Flow Rate FiO2 08/05/17 11:56 100 40 08/05/17 08:01 100 40 08/05/17 06:00 70 12 127/58 (81) 100 08/05/17 06:00 70 08/05/17 05:00 73 12 135/62 (86) 100 08/05/17 04:20 100 40 08/05/17 04:00 70 08/05/17 04:00 40 08/05/17 04:00 98.2 70 12 125/61 (82) 100 08/05/17 03:00 69 12 121/61 (81) 100 08/05/17 02:00 70 08/05/17 02:00 70 12 123/65 (84) 100 08/05/17 01:00 72 12 134/66 (88) 100 08/05/17 00:00 98.6 76 12 120/61 (80) 100 08/05/17 00:00 76 08/05/17 00:00 40 08/04/17 23:54 100 40 08/04/17 23:00 79 12 118/64 (82) 100 08/04/17 22:38 80 12 143/67 100 08/04/17 22:30 78 12 143/67 (92) 100 08/04/17 22:04 100 40 08/04/17 22:00 80 08/04/17 22:00 80 12 126/66 (86) 100 08/04/17 21:42 82 12 126/62 100 08/04/17 21:30 82 12 126/62 (83) 100 08/04/17 21:00 83 12 126/65 (85) 100 08/04/17 20:30 87 12 127/70 (89) 100 08/04/17 20:00 86 12 127/64 (85) 100 08/04/17 20:00 86 12 127/64 (85) 100 08/04/17 20:00 50 08/04/17 20:00 86 08/04/17 19:00 91 12 130/63 (85) 100 08/04/17 18:00 94 08/04/17 17:00 93 12 134/66 (88) 100 08/04/17 16:30 92 12 125/66 (85) 100 08/04/17 16:00 101 08/04/17 16:00 98.3 101 15 151/74 (99) 100 08/04/17 15:30 94 12 135/68 (90) 100 08/04/17 15:00 108 29 155/84 (107) 100 08/04/17 14:35 110 128/58 08/04/17 14:00 101 08/04/17 14:00 98.2 101 13 131/64 (86) 100 08/04/17 14:00 40 08/04/17 13:53 100 100 08/04/17 13:30 40 08/04/17 13:30 110 128/58 (81) 98 Mechanical Ventilator 40 08/04/17 13:24 97.5 108 125/64 100 08/05/17 08/05/17 08/05/17 07:00 15:00 23:00 Intake Total 850 ml 370 ml Output Total 625 ml Balance 225 ml 370 ml Result Diagram: 08/05/17 0247 08/05/17 0247 Laboratory Results Laboratory Tests Test 08/04/17 14:25 08/04/17 16:50 08/04/17 17:17 08/04/17 23:20 Blood Gas Puncture Site RT RADIAL LT RADIAL Blood Gas Patient Temperature 98.6 98.6 Blood Gas HCO3 28 mmol/L 29 mmol/L Blood Gas Base Excess 2.4 mmol/L 4.7 mmol/L Blood Gas Oxygen Saturation 97 % 97 % Arterial Blood pH 7.34 7.39 Arterial Blood Partial Pressure CO2 52 mmHg 49 mmHg Arterial Blood Partial Pressure O2 152 mmHg 218 mmHg Arterial Blood Oxygen Content 13.4 Vol % 12.7 Vol % Arterial Blood Carboxyhemoglobin 1.6 % 1.5 % Arterial Blood Methemoglobin 1.2 % 1.0 % Blood Gas Hemoglobin 9.6 G/DL 8.9 G/DL Oxygen Delivery Device [id number] VENTILATOR Blood Gas Inspired Oxygen 40 % 50 % White Blood Count 2.2 TH/MM3 Red Blood Count 2.81 MIL/MM3 Hemoglobin 9.4 GM/DL Hematocrit 27.2 % Mean Corpuscular Volume 96.6 FL Mean Corpuscular Hemoglobin 33.4 PG Mean Corpuscular Hemoglobin Concent 34.6 % Red Cell Distribution Width 18.3 % Platelet Count 34 TH/MM3 Mean Platelet Volume 9.9 FL Prothrombin Time 17.8 SEC Prothromb Time International Ratio 1.6 RATIO Fibrinogen 120 mg/dL Blood Gas Ventilator Setting AC12/500/+5 Nasal Screen MRSA (PCR) MRSA NOT DETECTED Test 08/05/17 02:47 White Blood Count 1.7 TH/MM3 Red Blood Count 2.48 MIL/MM3 Hemoglobin 8.1 GM/DL Hematocrit 23.8 % Mean Corpuscular Volume 96.2 FL Mean Corpuscular Hemoglobin 32.7 PG Mean Corpuscular Hemoglobin Concent 34.0 % Red Cell Distribution Width 18.4 % Platelet Count 53 TH/MM3 Mean Platelet Volume 7.9 FL Neutrophils (%) (Auto) 73.2 % Lymphocytes (%) (Auto) 14.5 % Monocytes (%) (Auto) 7.7 % Eosinophils (%) (Auto) 4.2 % Basophils (%) (Auto) 0.4 % Neutrophils # (Auto) 1.3 TH/MM3 Lymphocytes # (Auto) 0.3 TH/MM3 Monocytes # (Auto) 0.1 TH/MM3 Eosinophils # (Auto) 0.1 TH/MM3 Basophils # (Auto) 0.0 TH/MM3 CBC Comment AUTO DIFF Differential Total Cells Counted 100 Neutrophils % (Manual) 77 % Band Neutrophils % 4 % Lymphocytes % 11 % Monocytes % 4 % Eosinophils % 4 % Neutrophils # (Manual) 1.4 TH/MM3 Differential Comment FINAL DIFF MANUAL Platelet Estimate LOW Platelet Morphology Comment NORMAL Ovalocytes 1+ Keratocytes OCC Prothrombin Time 15.5 SEC Prothromb Time International Ratio 1.4 RATIO Fibrinogen 183 mg/dL Blood Urea Nitrogen 15 MG/DL Creatinine 0.66 MG/DL Random Glucose 124 MG/DL Total Protein 6.0 GM/DL Albumin 2.3 GM/DL Calcium Level 7.4 MG/DL Phosphorus Level 1.7 MG/DL Magnesium Level 1.6 MG/DL Alkaline Phosphatase 69 U/L Aspartate Amino Transf (AST/SGOT) 37 U/L Alanine Aminotransferase (ALT/SGPT) 26 U/L Total Bilirubin 3.4 MG/DL Sodium Level 147 MEQ/L Potassium Level 3.5 MEQ/L Chloride Level 109 MEQ/L Carbon Dioxide Level 31.7 MEQ/L Anion Gap 6 MEQ/L Estimat Glomerular Filtration Rate 123 ML/MIN Protein Corrected Calcium 8.0 MG/DL Ammonia 89 MCMOL/L Administered Medications Medications (Trade) Dose Ordered Sig/Armida Route PRN Reason Start Time Stop Time Status Last Admin Dose Admin Sodium Chloride (NS Flush) 2 ml BID IV FLUSH 08/04/17 09:00 08/05/17 10:02 Ondansetron HCl (Zofran Inj) 4 mg Q6H PRN IV PUSH NAUSEA OR VOMITING 08/04/17 08:45 08/04/17 11:16 Miscellaneous Information 1 [id number] XX 08/04/17 08:45 08/04/17 08:45 Chlorhexidine Gluconate (Chlorhexidine 2% Cloth) 3 pack Taper DAILY@04 TOP 08/05/17 04:00 08/01/18 03:59 08/05/17 04:00 Potassium Phosphate 30 mmol/ Sodium Chloride 260 ml @ 42 mls/hr UNSCH PRN IV SEE LABEL COMMENTS 08/04/17 08:45 08/05/17 06:06 Ceftriaxone Sodium 2000 mg/ Sodium Chloride 100 ml @ 200 mls/hr Q24H IV 08/04/17 11:00 08/05/17 10:03 Pantoprazole Sodium 80 mg/ Sodium Chloride 100 ml @ 10 mls/hr CONTINUOUS IV 08/04/17 11:00 08/04/17 21:49 Chlorhexidine Gluconate (Peridex 0.12% Liq) 15 ml BID@08,20 MT 08/04/17 20:00 08/05/17 10:02 Propofol 100 ml @ 2.1 mls/hr TITRATE PRN IV SEDATION 08/04/17 12:15 08/05/17 02:13 Artificial Tears (Tears Naturale Opth Soln) 1 drop Q8H EACH EYE 08/04/17 16:00 08/05/17 10:02 Fentanyl Citrate 250 ml @ 5 mls/hr TITRATE PRN IV SEDATION 08/04/17 15:00 08/04/17 16:22 Octreotide Acetate 500 mcg/ Sodium Chloride 500 ml @ 50 mls/hr Q10H IV 08/04/17 19:00 08/05/17 06:06 Sodium Chloride 1,000 ml @ 84 mls/hr [id number] IV 08/04/17 21:15 08/05/17 10:03 Objective Remarks GENERAL: Older male, sedated and intubated SKIN: Warm and dry. HEAD: Normocephalic. EYES: No injection or drainage. NECK: Supple, trachea midline. CARDIOVASCULAR: Regular rate and rhythm without murmurs. RESPIRATORY: Clear anteriorly. Mechanically ventilated. GASTROINTESTINAL: Abdomen soft, non-tender, nondistended. EXTREMITIES: No cyanosis, or edema. MUSCULOSKELETAL: Adequate muscle tone. NEUROLOGICAL: Sedated Assessment/Plan Problem List: (1) Esophageal varices with hemorrhage ICD Codes: I85.01 - Esophageal varices with bleeding Status: Acute Plan: 08/05: Monitor CBC and transfuse as necessary. Supportive care. Keep fibrinogen greater than 100 and platelets greater than 50,000. -- History of alcoholic-induced liver cirrhosis -- Most recently he underwent upper endoscopy and was found to have bleeding from esophageal varices. The GI physician was unable to band. -- On Protonix and Sandostatin gtt (2) Pancytopenia ICD Codes: D61.818 - Other pancytopenia Status: Acute Plan: -- Due to hypersplenism -- Supportive care with transfusions to keep platelets > 50k, fibrinogen > 100. Assessment 61 y/o male admitted for GI bleeding Attending Statement sedated, On vent no obvious bleeding continue Blood product support. The exam, history, and the medical decision-making described in the above note were completed with the assistance of the mid-level provider. I reviewed and agree with the findings presented. I attest that I had a [id number] encounter with the patient on the same day, and personally performed and documented my assessment and findings in the medical record. Vera Corona Aug 05, 2017 13:30 Estefany Brewster MD Aug 05, 2017 18:25
[2017-08-05 13:36] LABS: HEMATOCRIT 26.5 % (39.0-51.0)
[2017-08-05 13:39] LABS: REVIEW FLAG FINAL
[2017-08-05] MEDS ORDERED: SODIUM CHLOR 0.45% 500 ML INJ 500 ML IV ONE (15:30)
[2017-08-05] MEDS: SODIUM CHLOR 0.45% 1000 ML INJ 1,000 ML IV SCH (15:49)
--- NOTE | 2017-08-05 15:53 | HHI.CCPN ---
Subjective Remarks/Hospital Course This is a 61-year-old male with history of alcoholic liver disease with esophageal varices, who presents today with complaints of 3 episodes of vomiting black coffee-ground emesis in the ED. The patient has had multiple admissions for the same diagnosis, last admission 04/2017. The patient currently has had an assessment at [facility] for liver transplantation his previous MELD score was 21. The patient is scheduled to return to [place] at the end of the year for evaluation for liver transplantation. The patient reports that last night at 11 PM he started experiencing some discomfort in his abdomen. He states he drank some water and then shortly thereafter vomited coffee-ground emesis. He states he had 3 further episodes with the last one having some maroon-colored blood. He presented to the ED at 5 AM He denies any shortness of breath. He denied any melanotic stools. Gastroenterology was consulted, Dr. Richards for evaluation. Critical care medicine was consulted for management. Upon my initial evaluation the patient was noted to be sinus tachycardia 110-118 heart rate, in no respiratory distress, with mild complaints of nausea recently being administered Compazine IV with resolved bleeding symptoms. The patient subsequently had another episode of hematemesis with approximately 400 cc of bright red blood. Patient scheduled to received 1 unit of FFP 2 units of platelets and will undergo EGD this a.m.. Subjective: 08/05: Afebrile. Sinus rhythm. No acute events overnight. Serial H&H's appears stable, currently monitored every 6 hours. OGT minimal bilious gastric output, no heme noted. No melanotic stools. The patient was noted to be slightly hypernatremic with a sodium level 147, IV fluids changed to 1/2 normal saline. Urine output was noted to be marginal in the last 12 hours patient currently being bolused with 500 cc we'll monitor urine output. Patient remains a rest of -2 on sedation, currently nodding yes and no questions understands status post EGD patient remains intubated secondary to gastric varices, with concern for continued bleeding at the time per GI. Patient denies pain. Objective Vital Signs Date Time Temp Pulse Resp B/P (MAP) Pulse Ox O2 Delivery O2 Flow Rate FiO2 08/05/17 14:00 70 08/05/17 12:00 97.9 12 134/60 (84) 100 08/05/17 12:00 40 08/04/17 13:30 Mechanical Ventilator 08/04/17 09:00 2.00 Intake and Output 08/05/17 08/05/17 08/06/17 08:00 16:00 00:00 Intake Total 850 ml 370 ml Output Total 625 ml Balance 225 ml 370 ml Result Diagram: 08/05/17 1324 08/05/17 0247 Other Results Laboratory Tests Test 08/04/17 17:17 Blood Gas Puncture Site LT RADIAL Blood Gas Patient Temperature 98.6 Blood Gas HCO3 29 mmol/L (22-26) Blood Gas Base Excess 4.7 mmol/L (-2-2) Blood Gas Oxygen Saturation 97 % (90-100) Arterial Blood pH 7.39 (7.380-7.420) Arterial Blood Partial Pressure CO2 49 mmHg (38-42) Arterial Blood Partial Pressure O2 218 mmHg (61-120) Arterial Blood Oxygen Content 12.7 Vol % (12.0-20.0) Arterial Blood Carboxyhemoglobin 1.5 % (0-4) Arterial Blood Methemoglobin 1.0 % (0-2) Blood Gas Hemoglobin 8.9 G/DL (12.0-16.0) Oxygen Delivery Device VENTILATOR Blood Gas Ventilator Setting AC12/500/+5 Blood Gas Inspired Oxygen 50 % Imaging CXR- stable chest Objective Remarks GENERAL: This is a well-developed well-nourished male of appropriately stated age, intubated and lightly sedated, nodding yes and no questions SKIN: Warm and dry. No jaundice noted HEAD: Atraumatic. Normocephalic. EYES: Pupils equal and round. No scleral icterus. No injection or drainage. ENT: No nasal bleeding or discharge. Mucous membranes pink and moist. OGT noted to LIWS minimal bilious type secretions NECK: Trachea midline. No JVD. Orally intubated CARDIOVASCULAR: Normal rate rate, regular rhythm. Telemetry sinus rhythm RESPIRATORY: No accessory muscle use. Clear to auscultation. Breath sounds equal bilaterally. Orotracheally intubated GASTROINTESTINAL: Abdomen soft, non-tender, nondistended. No guarding. MUSCULOSKELETAL: Extremities without clubbing, cyanosis, or edema. No obvious deformities. NEUROLOGICAL: GCS 11 T . RASS -2. No gross focal/sensory deficits.Follows commands in all 4 extremities. A/P Assessment and Plan Neurologic: Hyperammonemia GCS 11T Diprivan and fentanyl sedation for ventilator synchrony Will avoid Tylenol secondary to possible hepatotoxicity Ammonia level 89, continue to follow trends Lactulose and rifaximin per GI recommendation-patient currently nothing by mouth Respiratory: Patient remains intubated secondary to high risk for aspiration secondary to gastric varices per GI recommendations Maintain O2 sat greater than 92%-decrease FiO2 to 40% Ventilator bundle Maintain head of bed at least 30, patient high risk for aspiration Bronchodilators every 4 hours when necessary 08/04 chest [id number] Cardiovascular: Sinus tachycardia most likely secondary to acute blood loss-resolved Maintain MAP greater than 65 mmHg Will consider initiation of spironolactone, when patient is will hemodynamically clinically stable Volume resuscitate-bolus NS 1 L, packed red blood cells, FFP, platelets Renal: Hypovolemia secondary to acute blood loss-resolved Oliguria Mcdonald catheter Bolused 500 cc / NS- monitor output -- Strict I/Os FEN/GI: Recurrent Upper GI bleed Hematemesis 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 Esophageal varices grade 1-2 no evidence of bleeding Protonix infusion GI following- Dr. Maurice Verduzco, Compazine for nausea The patient is being followed by [facility] for transplant initial assessment was performed 02/10 with MELD score 21. The patient is scheduled for liver transplant evaluation October 2017 MELD score 17 currently Bolused 2 L normal saline, 1/2 normal saline 84 cc/hour Heme/ID: Pancytopenia Coagulopathy Keep 2 units packed red blood cells on hold, keep 2 ahead Obtain H&H every 6 hours Give 2 units of platelets now, 1 unit of FFP now. Continue to transfuse platelets for count less than 50,000 INR 1.7, Plt 27, Hgb 10 ( previous admission-patient noted to be pancytopenic with INR 1.6) Hematology oncology consulted Rocephin 2 GM q 24h Endocrine: Glucose monitoring per ICU protocol -- SSI Prophylaxis: GI Prophylaxis Octreotide infusion Protonix infusion Pepcid DVT Prophylaxis -- SCDs No pharmacological prophylaxis in the setting of bleeding Lines: Peripheral IVs adequate access at this time Dispo: This patient remains critically ill with one or more organ systems which are or may become a threat to life. I have spent in excess of 30 minutes discontinuously in the care and management of this patient. This time is exclusive of procedures, and includes, but is not limited to, evaluation of the patient, review of the medical record, discussions with family, consultants, nursing staff, or respiratory therapy, and documentation in the medical record. Physician Delilah Solis MD Aug 05, 2017 15:53
[2017-08-05] MEDS: PANTOPRAZOLE INJ 80 MG in SODIUM CHLORIDE 0.9% INJ 100 ML IV SCH (17:39)
[2017-08-05 20:59] LABS: HEMATOCRIT 29.1 % (39.0-51.0)
[2017-08-05 21:00] LABS: REVIEW FLAG FINAL
[2017-08-06] VITALS (36 sets, daily range): BP systolic 99–150; BP diastolic 51–70; PULSE 68–101; RESP 12–19; TEMP 97.3–98.7; O2SAT 95–100
[2017-08-06] MEDS: ARTIFICIAL TEARS OPTH SOLN 15 ML BTL EACH EYE SCH ×3 (01:06→16:00)
[2017-08-06] MEDS: OCTREOTIDE 500 MCG/NS 500 ML - 50 mcg/hr IV SCH ×6 (01:14→21:53)
[2017-08-06] MEDS: CHLORHEXIDINE GLUCONATE 2 % 1 PACK (2 CLOTHS) TOP SCH (04:00)
[2017-08-06] MEDS: SODIUM CHLOR 0.45% 1000 ML INJ 1,000 ML IV SCH ×2 (04:26→13:18)
[2017-08-06] MEDS: PANTOPRAZOLE INJ 80 MG in SODIUM CHLORIDE 0.9% INJ 100 ML IV SCH ×3 (04:26→21:53)
--- NOTE | 2017-08-06 04:29 | RADRPT ---
EXAM DATE/TIME: 08/06/2017 03:20 [place] COMPARISON: CHEST SINGLE AP, August 04, 2017, 14:59. INDICATIONS : Difficulty breathing. MEDICAL HISTORY : Cirrhosis. Hypertension. Renal calculi. Esophageal varices. Thrombocytopenia. SURGICAL HISTORY : None. ENCOUNTER: Subsequent ACUITY: 3 days PAIN SCORE: Non-responsive. LOCATION: Bilateral chest FINDINGS: Moderate pleural effusion with consolidation seen on the right, worse. Minimal infiltrates in left maida ng base. No pneumothorax demonstrated. Heart size stable, upper limits of normal. Endotracheal tube tip is approximately 5.6 cm above the misty. Nasogastric tube courses into the sto mach. CONCLUSION: Worsening consolidation and effusion on the right. Carlos Jerez MD on August 06, 2017 at 4:26 Board Certified Radiologist. This report was verified electronically.
[2017-08-06 05:38] LABS: MEAN CELL VOLUME 96.7 FL (80.0-100.0); MEAN CORPUSCULAR HEMOGLOBIN 33.2 PG (27.0-34.0); MEAN CORPUSCULAR HGB CONC 34.3 % (32.0-36.0); PLATELET COUNT 42 TH/MM3 (150-450); RED BLOOD COUNT 2.58 MIL/MM3 (4.50-5.90); RED CELL DISTRIBUTION WIDTH 18.1 % (11.6-17.2); WHITE BLOOD COUNT 1.9 TH/MM3 (4.0-11.0)
[2017-08-06] MEDS: fentaNYL DRIP 250 ML IV PRN (05:48)
[2017-08-06 05:50] LABS: INTERNATIONAL NORMALIZED RATIO 1.4 RATIO; PROTHROMBIN TIME - PATIENT 15.7 SEC (9.8-11.6)
[2017-08-06 06:03] LABS: REVIEW FLAG FINAL
[2017-08-06 06:16] LABS: BICARBONATE 29.5 MEQ/L (21.0-32.0); MAGNESIUM 1.3 MG/DL (1.5-2.5); POTASSIUM 3.5 MEQ/L (3.5-5.1); TOTAL BILIRUBIN ADULT 2.6 MG/DL (0.2-1.0)
[2017-08-06 06:18] LABS: CALCIUM-PROTEIN CORRECTED 7.2 MG/DL (8.5-10.1)
[2017-08-06 06:33] LABS: BLOOD GAS CARBOXYHEMOGLOBIN 1.6 % (0-4); BLOOD GAS HCO3 27 mmol/L (22-26); BLOOD GAS METHEMOGLOBIN 1.2 % (0-2); BLOOD GAS O2 HGB SATURATION 95 % (90-100); BLOOD GAS OXYGEN CONTENT 12.8 Vol % (12.0-20.0); BLOOD GAS PCO2 48 mmHg (38-42); BLOOD GAS PO2 99 mmHg (61-120); BLOOD GAS TOTAL HGB 9.4 G/DL (12.0-16.0); CRITICAL VALUE NO; TEMP CORR TO 98.6
[2017-08-06 06:34] LABS: OXYGEN DEVICE VENT; VENT SETTINGS SEE COMMENTS
[2017-08-06 06:35] LABS: DRAW SITE RT RADIAL; FIO2 40 %; NUMBER OF ARTERIAL PUNCTURES 2; STAT NO; ULNAR PULSE PRESENT
[2017-08-06] MEDS ORDERED: CALCIUM GLUCONATE INJ 2 GM in SODIUM CHLORIDE 0.9% INJ 100 ML IV ONE (06:45)
[2017-08-06] MEDS: DOCUSATE SODIUM 50 MG/SENNA 8.6 MG TAB PO SCH ×2 (07:28→20:28)
[2017-08-06] MEDS: POTASSIUM PHOSPHATE INJ 30 MMOL in SODIUM CHLOR 0.9% 250 ML INJ 250 ML IV PRN (08:07)
[2017-08-06] MEDS: SODIUM CHLORIDE 0.9% FLUSH 10 ML FLUSH IV FLUSH SCH ×2 (08:10→20:29)
[2017-08-06] MEDS: CHLORHEXIDINE 0.12% (ORAL KIT) 15 ML CUP MT SCH ×2 (08:10→20:29)
[2017-08-06] MEDS ORDERED: SODIUM CHLOR 0.9% 250 ML INJ 250 ML IV ONE (10:30)
[2017-08-06] MEDS: cefTRIAXone INJ 2,000 MG in SODIUM CHLORIDE 0.9% INJ 100 ML IV SCH (10:48)
--- NOTE | 2017-08-06 11:09 | PD.ONC.PN ---
Subjective Subjective Remarks Afebrile Patient had some blood tinged secretions in ET tube when suctioned by RT. No other bleeding noted Objective Data Date Time Temp Pulse Resp B/P (MAP) Pulse Ox O2 Delivery O2 Flow Rate FiO2 08/06/17 08:24 100 40 08/06/17 08:00 97.9 94 16 138/69 (92) 99 08/06/17 08:00 40 08/06/17 06:00 79 08/06/17 04:00 71 08/06/17 04:00 98.7 71 12 99/57 (71) 100 08/06/17 04:00 40 08/06/17 03:37 100 40 08/06/17 02:00 80 08/06/17 00:55 98 40 08/06/17 00:00 79 08/06/17 00:00 98.6 79 12 130/62 (84) 100 08/06/17 00:00 40 08/05/17 22:00 84 08/05/17 20:30 99 40 08/05/17 20:00 40 08/05/17 20:00 94 08/05/17 20:00 98.6 94 15 100/58 (72) 97 08/05/17 18:00 78 08/05/17 16:00 67 08/05/17 16:00 98.1 67 12 112/55 (74) 100 08/05/17 16:00 40 08/05/17 14:00 70 08/05/17 12:00 97.9 77 12 134/60 (84) 100 08/05/17 12:00 77 08/05/17 12:00 40 08/05/17 11:56 100 40 08/06/17 08/06/17 08/06/17 07:00 15:00 23:00 Intake Total 2712 ml Output Total 600 ml Balance 2112 ml Result Diagram: 08/06/17 0457 08/06/17 0457 Laboratory Results Laboratory Tests Test 08/05/17 13:24 08/05/17 20:30 08/06/17 04:57 08/06/17 06:17 Hemoglobin 9.0 GM/DL 9.8 GM/DL 8.6 GM/DL Hematocrit 26.5 % 29.1 % 25.0 % White Blood Count 1.9 TH/MM3 Red Blood Count 2.58 MIL/MM3 Mean Corpuscular Volume 96.7 FL Mean Corpuscular Hemoglobin 33.2 PG Mean Corpuscular Hemoglobin Concent 34.3 % Red Cell Distribution Width 18.1 % Platelet Count 42 TH/MM3 Mean Platelet Volume 7.8 FL Prothrombin Time 15.7 SEC Prothromb Time International Ratio 1.4 RATIO Blood Urea Nitrogen 10 MG/DL Creatinine 0.56 MG/DL Random Glucose 108 MG/DL Total Protein 5.2 GM/DL Albumin 2.0 GM/DL Calcium Level 6.3 MG/DL Phosphorus Level 2.0 MG/DL Magnesium Level 1.3 MG/DL Alkaline Phosphatase 67 U/L Aspartate Amino Transf (AST/SGOT) 45 U/L Alanine Aminotransferase (ALT/SGPT) 25 U/L Total Bilirubin 2.6 MG/DL Sodium Level 144 MEQ/L Potassium Level 3.5 MEQ/L Chloride Level 111 MEQ/L Carbon Dioxide Level 29.5 MEQ/L Anion Gap 4 MEQ/L Estimat Glomerular Filtration Rate 148 ML/MIN Protein Corrected Calcium 7.2 MG/DL Blood Gas Puncture Site RT RADIAL Blood Gas Patient Temperature 98.6 Blood Gas HCO3 27 mmol/L Blood Gas Base Excess 2.0 mmol/L Blood Gas Oxygen Saturation 95 % Arterial Blood pH 7.37 Arterial Blood Partial Pressure CO2 48 mmHg Arterial Blood Partial Pressure O2 99 mmHg Arterial Blood Oxygen Content 12.8 Vol % Arterial Blood Carboxyhemoglobin 1.6 % Arterial Blood Methemoglobin 1.2 % Blood Gas Hemoglobin 9.4 G/DL Oxygen Delivery Device VENT Blood Gas Ventilator Setting SEE COMMENTS Blood Gas Inspired Oxygen 40 % Imaging Studies Last 24 hours Impressions Chest X-Ray 08/06/17 0600 Signed Impressions: Service Date/Time: Sunday, August 06, 2017 03:20 - CONCLUSION: Worsening consolidation and effusion on the right. Carlos Jerez MD Administered Medications Medications (Trade) Dose Ordered Sig/Armida Route PRN Reason Start Time Stop Time Status Last Admin Dose Admin Sodium Chloride (NS Flush) 2 ml BID IV FLUSH 08/04/17 09:00 08/06/17 08:10 Ondansetron HCl (Zofran Inj) 4 mg Q6H PRN IV PUSH NAUSEA OR VOMITING 08/04/17 08:45 08/04/17 11:16 Miscellaneous Information 1 [id number] XX 08/04/17 08:45 08/04/17 08:45 Chlorhexidine Gluconate (Chlorhexidine 2% Cloth) 3 pack Taper DAILY@04 TOP 08/05/17 04:00 08/01/18 03:59 08/05/17 04:00 Magnesium Sulfate 2 gm/Sodium Chloride 100 ml @ 50 mls/hr UNSCH PRN IV For Magnesium 1.2 - 1.6 mg/dL 08/04/17 08:45 08/06/17 08:08 Potassium Phosphate 30 mmol/ Sodium Chloride 260 ml @ 42 mls/hr UNSCH PRN IV SEE LABEL COMMENTS 08/04/17 08:45 08/06/17 08:07 Ceftriaxone Sodium 2000 mg/ Sodium Chloride 100 ml @ 200 mls/hr Q24H IV 08/04/17 11:00 08/06/17 10:48 Pantoprazole Sodium 80 mg/ Sodium Chloride 100 ml @ 10 mls/hr CONTINUOUS IV 08/04/17 11:00 08/06/17 04:26 Chlorhexidine Gluconate (Peridex 0.12% Liq) 15 ml BID@08,20 MT 08/04/17 20:00 08/06/17 08:10 Propofol 100 ml @ 2.1 mls/hr TITRATE PRN IV SEDATION 08/04/17 12:15 08/05/17 22:03 Artificial Tears (Tears Naturale Opth Soln) 1 drop Q8H EACH EYE 08/04/17 16:00 08/06/17 08:09 Fentanyl Citrate 250 ml @ 5 mls/hr TITRATE PRN IV SEDATION 08/04/17 15:00 08/06/17 05:48 Octreotide Acetate 500 mcg/ Sodium Chloride 500 ml @ 50 mls/hr Q10H IV 08/04/17 19:00 08/06/17 01:14 Sodium Chloride 1,000 ml @ 84 mls/hr [id number] IV 08/05/17 15:30 08/06/17 04:26 Objective Remarks GENERAL: Older male, sedated and intubated SKIN: Warm and dry. HEAD: Normocephalic. EYES: No injection or drainage. NECK: Supple, trachea midline. CARDIOVASCULAR: Regular rate and rhythm without murmurs. RESPIRATORY: Clear anteriorly. Mechanically ventilated. GASTROINTESTINAL: Abdomen soft, non-tender, nondistended. EXTREMITIES: No cyanosis, or edema. MUSCULOSKELETAL: Adequate muscle tone. NEUROLOGICAL: Sedated Assessment/Plan Problem List: (1) Esophageal varices with hemorrhage ICD Codes: I85.01 - Esophageal varices with bleeding Status: Acute Plan: 08/06: Transfuse 1 unit platelets today for platelets of 42,000. Fibrinogen pending. Will transfuse cryoprecipitate for levels less than 100. 08/05: Monitor CBC and transfuse as necessary. Supportive care. Keep fibrinogen greater than 100 and platelets greater than 50,000. -- History of alcoholic-induced liver cirrhosis -- Most recently he underwent upper endoscopy and was found to have bleeding from esophageal varices. The GI physician was unable to band. -- On Protonix and Sandostatin gtt (2) Pancytopenia ICD Codes: D61.818 - Other pancytopenia Status: Acute Plan: -- Due to hypersplenism -- Supportive care with transfusions to keep platelets > 50k, fibrinogen > 100. Assessment 61 y/o male admitted for GI bleeding Attending Statement Sedated And remains on the ventilator Blood tinged aspirate in NG Platelets TX today Fibrinogen is more than 200. No need for cryoprecipitate The exam, history, and the medical decision-making described in the above note were completed with the assistance of the mid-level provider. I reviewed and agree with the findings presented. I attest that I had a [id number] encounter with the patient on the same day, and personally performed and documented my assessment and findings in the medical record. Vera Corona Aug 06, 2017 11:09 Estefany Brewster MD Aug 06, 2017 14:43
--- NOTE | 2017-08-06 12:20 | HHI.GIFU ---
Subjective Remarks Sedated on vent. OGT to LIWS, with green bilious material, no blood. No active bleeding per nurse. (Natalia Anderson) Objective Vitals I&O Vital Signs Date Time Temp Pulse Resp B/P (MAP) Pulse Ox O2 Delivery O2 Flow Rate FiO2 08/06/17 12:07 97.9 69 12 112/55 100 08/06/17 11:21 97.9 70 12 121/59 100 08/06/17 08:24 100 40 08/06/17 08:00 97.9 94 16 138/69 (92) 99 08/06/17 08:00 40 08/06/17 06:00 79 08/06/17 04:00 71 08/06/17 04:00 98.7 71 12 99/57 (71) 100 08/06/17 04:00 40 08/06/17 03:37 100 40 08/06/17 02:00 80 08/06/17 00:55 98 40 08/06/17 00:00 79 08/06/17 00:00 98.6 79 12 130/62 (84) 100 08/06/17 00:00 40 08/05/17 22:00 84 08/05/17 20:30 99 40 08/05/17 20:00 40 08/05/17 20:00 94 08/05/17 20:00 98.6 94 15 100/58 (72) 97 08/05/17 18:00 78 08/05/17 16:00 67 08/05/17 16:00 98.1 67 12 112/55 (74) 100 08/05/17 16:00 40 08/05/17 14:00 70 I/O 08/05/17 08/05/17 08/05/17 08/06/17 08/06/17 08/06/17 06:59 14:59 22:59 06:59 14:59 22:59 Intake Total 850 ml 370 ml 2290 ml 2712 ml 400 ml Output Total 625 ml 625 ml 600 ml Balance 225 ml 370 ml 1665 ml 2112 ml 400 ml Intake IV Total 600 ml 370 ml 2290 ml 2712 ml Packed Cells 400 ml Cryoprecipitate 250 ml Output Urine Total 625 ml 625 ml 600 ml # Bowel Movements 0 Laboratory Laboratory Tests Test 08/05/17 13:24 08/05/17 20:30 08/06/17 04:57 08/06/17 06:17 Hemoglobin 9.0 9.8 8.6 Hematocrit 26.5 29.1 25.0 White Blood Count 1.9 Red Blood Count 2.58 Mean Corpuscular Volume 96.7 Mean Corpuscular Hemoglobin 33.2 Mean Corpuscular Hemoglobin Concent 34.3 Red Cell Distribution Width 18.1 Platelet Count 42 Mean Platelet Volume 7.8 Prothrombin Time 15.7 Prothromb Time International Ratio 1.4 Blood Urea Nitrogen 10 Creatinine 0.56 Random Glucose 108 Total Protein 5.2 Albumin 2.0 Calcium Level 6.3 Phosphorus Level 2.0 Magnesium Level 1.3 Alkaline Phosphatase 67 Aspartate Amino Transf (AST/SGOT) 45 Alanine Aminotransferase (ALT/SGPT) 25 Total Bilirubin 2.6 Sodium Level 144 Potassium Level 3.5 Chloride Level 111 Carbon Dioxide Level 29.5 Anion Gap 4 Estimat Glomerular Filtration Rate 148 Protein Corrected Calcium 7.2 Blood Gas Puncture Site RT RADIAL Blood Gas Patient Temperature 98.6 Blood Gas HCO3 27 Blood Gas Base Excess 2.0 Blood Gas Oxygen Saturation 95 Arterial Blood pH 7.37 Arterial Blood Partial Pressure CO2 48 Arterial Blood Partial Pressure O2 99 Arterial Blood Oxygen Content 12.8 Arterial Blood Carboxyhemoglobin 1.6 Arterial Blood Methemoglobin 1.2 Blood Gas Hemoglobin 9.4 Oxygen Delivery Device VENT Blood Gas Ventilator Setting SEE COMMENTS Blood Gas Inspired Oxygen 40 Imaging Last Impressions Chest X-Ray 08/06/17 0600 Signed Impressions: Service Date/Time: Sunday, August 06, 2017 03:20 - CONCLUSION: Worsening consolidation and effusion on the right. Carlos Jerez MD Physical Exam HEENT: Normocephalic; atraumatic; no jaundice. CHEST: Resp even/unlabored, on vent. CARDIAC: ST, mild ABDOMEN: Soft, nondistended, nontender, hepatosplenomegaly; bowel sounds are present in all four quadrants. OGT with green bilious material EXTREMITIES: No clubbing, cyanosis, or edema. SKIN: Normal; no rash; no jaundice. ROLL TRUCKER: Sedated on vent. (Natalia Anderson) Assessment and Plan Plan ASSESSMENT: - Recurrent upper GIB, hematemesis. Hospitalized in April of 2017 and was evaluated with S/P EGD (05/24/17)-----> Distal esophageal Barretts esophagus and grade 1-2 varices, Stomach: no blood. No ulcers. Mucosa does not appear edematous duodenum: normal. S/P Angiogram of the Celiac, Superior Mesenteric Artery (05/24/17)---> no hemorrhagic focus identified. S/P EGD with needle injection for bleeding (08/04/18), official report pending, according to emr note, gastric varices-bleeding unable to band, chance of rebeed, patient to remain intubated. Esophageal varices grade 1-2 no evidence of bleeding. OGT to LIWS with green bilious material. No active gib at this time. Octreotide, Protonix gtt. HH 8.6/25.0. - Anemia, acute blood loss. HH 8.6/25.0. - Severe thrombocytopenia, coagulopathy. Plt 42,000, PT 15.7, INR 1.4. - Liver cirrhosis. Established at [facility], Caitlin Styles . Last seen in January. - GERD, Russell's Esophagus. Protonix. PLAN: - NPO - OGT to LIWS - Cont. Protonix gtt - Cont. Octreotide - Monitor labs - Transfuse as necessary - Supportive care - Further recommendations to follow based on results of above - Pt seen and examined by Dr. Bennett and myself and this note is written on her behalf (Natalia Anderson) Natalia Anderson Aug 06, 2017 12:20 Dai Bennett MD Aug 06, 2017 19:58
[2017-08-06] MEDS: PROPOFOL 1000 MG/100 ML INJ 100 ML IV PRN ×2 (13:19→18:27)
[2017-08-06] MEDS ORDERED: POTASSIUM PHOSPHATE INJ 30 MMOL in SODIUM CHLOR 0.9% 250 ML INJ 250 ML IV ONE (13:30)
--- NOTE | 2017-08-06 13:34 | HHI.CCPN ---
Subjective Remarks/Hospital Course This is a 61-year-old male with history of alcoholic liver disease with esophageal varices, who presents today with complaints of 3 episodes of vomiting black coffee-ground emesis in the ED. The patient has had multiple admissions for the same diagnosis, last admission 04/2017. The patient currently has had an assessment at [facility] for liver transplantation his previous MELD score was 21. The patient is scheduled to return to [place] at the end of the year for evaluation for liver transplantation. The patient reports that last night at 11 PM he started experiencing some discomfort in his abdomen. He states he drank some water and then shortly thereafter vomited coffee-ground emesis. He states he had 3 further episodes with the last one having some maroon-colored blood. He presented to the ED at 5 AM He denies any shortness of breath. He denied any melanotic stools. Gastroenterology was consulted, Dr. Richards for evaluation. Critical care medicine was consulted for management. Upon my initial evaluation the patient was noted to be sinus tachycardia 110-118 heart rate, in no respiratory distress, with mild complaints of nausea recently being administered Compazine IV with resolved bleeding symptoms. The patient subsequently had another episode of hematemesis with approximately 400 cc of bright red blood. Patient scheduled to received 1 unit of FFP 2 units of platelets and will undergo EGD this a.m.. 08/05: Afebrile. Sinus rhythm. No acute events overnight. Serial H&H's appears stable, currently monitored every 6 hours. OGT minimal bilious gastric output, no heme noted. No melanotic stools. The patient was noted to be slightly hypernatremic with a sodium level 147, IV fluids changed to 1/2 normal saline. Urine output was noted to be marginal in the last 12 hours patient currently being bolused with 500 cc we'll monitor urine output. Patient remains a rest of -2 on sedation, currently nodding yes and no questions understands status post EGD patient remains intubated secondary to gastric varices, with concern for continued bleeding at the time per GI. Patient denies pain. Subjective: 08/06: Afebrile. Quite agitated and not following commands on sedation vacation. Propofol and fentanyl drips resume. No bleeding noted. Hemoglobin appears stable Objective Vital Signs Date Time Temp Pulse Resp B/P (MAP) Pulse Ox O2 Delivery O2 Flow Rate FiO2 08/06/17 12:30 76 12 117/55 (75) 100 08/06/17 12:24 40 08/06/17 12:07 97.9 08/04/17 13:30 Mechanical Ventilator 08/04/17 09:00 2.00 Intake and Output 08/06/17 08/06/17 08/07/17 08:00 16:00 00:00 Intake Total 2712 ml 700 ml Output Total 600 ml Balance 2112 ml 700 ml Result Diagram: 08/06/1745608/06/17456 Imaging Last Impressions Chest X-Ray 08/06/17599 Signed Impressions: Service Date/Time: Sunday, August 06, 2017 03:20 - CONCLUSION: Worsening consolidation and effusion on the right. Carlos Jerez MD Objective Remarks GENERAL: 64-year-old male, critically ill currently orotracheally intubated SKIN: Warm and dry. No jaundice noted HEAD: Atraumatic. Normocephalic. EYES: Pupils equal and round. No scleral icterus. No injection or drainage. ENT: No nasal bleeding or discharge. Mucous membranes pink and moist. OGT noted to LIWS minimal greenish bilious type secretions NECK: Trachea midline. No JVD. Orally intubated CARDIOVASCULAR: RRR. S1, S2. No S4. Without murmur RESPIRATORY: Diminished breath sounds right lower lobe. Symmetrical excursion. No wheezing GASTROINTESTINAL: Abdomen soft, non-tender, nondistended. Hypoactive bowel sounds are appreciated MUSCULOSKELETAL: Extremities with trace lower extremity edema NEUROLOGICAL: GCS on sedation vacation positive gag, corneal reflex. Moves all 4 extremity spontaneously but not to command. Urinary Catheter: Yes Assessment to: Continue Mcdonald insert reason: Prolonged Immobilization Vascular Central Line Catheter: No Assessment to: Continue A/P Assessment and Plan NEURO/Psych: Acute toxic metabolic encephalopathy secondary to elevated ammonia Currently on propofol drip at 40 mcg/kg per minute/fentanyl drip at 50 mcg hour for sedation while intubated Goal of RASS-2 Daily sedation vacation Respiratory: Acute hypoxemic respiratory failure ACV 12/500/5/40 Ventilator bundle Patient remains intubated secondary to high risk for aspiration secondary to gastric varices per GI recommendations Maintain head of bed at least 30, patient high risk for aspiration Bronchodilators every 4 hours when necessary 08/06 - chest x-ray revealed worsening right lower lobe pleural effusion/ atelectasis Cardiovascular: Sinus tachycardia most likely secondary to acute blood loss-resolved Maintain MAP greater than 65 mmHg Will consider initiation of spironolactone, when patient is will hemodynamically clinically stable Resume diuretics see orders. Renal: Hypovolemia secondary to acute blood loss-resolved Oliguria currently resolved Mcdonald catheter Monitor urine output Accurate I's and O's Creatinine currently within normal limits. Reassess in a.m. 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 Esophageal varices grade 1-2 no evidence of bleeding Currently on pantoprazole drip at 8 mg an hour Continue Sandostatin drip at 50 mg an hour GI following- Dr. Richards The patient is being followed by [facility] for transplant initial assessment was performed 02/10 with MELD score 21. The patient is scheduled for liver transplant evaluation October 2017 at [facility] MELD score 17 currently. Reassess in a.m. 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 Minor the consulted Rocephin 2 GM q 24h for upper GI bleed Endocrine: Hyperglycemia of critical illness Glucose monitoring per ICU protocol -- SSI FEN: Hypocalcemia Hypo-magnesium Hypophosphatemia 3 g mag sulfate IV 1 now. 2 g calcium gluconate IV 1 now 30 mmol potassium phosphate IV 1 now. Check electrodes in AM. Replace as clinically indicated Prophylaxis: GI Prophylaxis Pantoprazole/Sandostatin Pepcid DVT Prophylaxis -- SCDs No pharmacological prophylaxis in the setting of bleeding Lines: Peripheral IVs adequate access at this time Level III follow-up Ryley Casey MD Aug 06, 2017 13:34
[2017-08-06] MEDS: MAGNESIUM SULFATE 1 GM PREMIX 100 ML IV SCH ×3 (14:30→17:33)
[2017-08-06] MEDS ORDERED: INSULIN NovoLIN REGULAR SUPPLEMENTAL SCALE ONE (15:18)
[2017-08-06] MEDS: LACTULOSE SYRUP 20 GM/30 ML CUP PO SCH ×2 (17:23→20:28)
[2017-08-06] MEDS: SPIRONOLACTONE 25 MG TAB PO SCH (17:23)
[2017-08-06 19:24] LABS: HEMATOCRIT 27.5 % (39.0-51.0)
[2017-08-06 19:26] LABS: REVIEW FLAG FINAL
[2017-08-06] MEDS: RIFAXIMIN 550 MG TAB PO SCH (20:28)
[2017-08-06] MEDS: CLINIMIX E 4.25/5 2000 mL- >42 mls/hr IV SCH ×3 (20:32)
[2017-08-07] VITALS (19 sets, daily range): BP systolic 96–132; BP diastolic 53–66; PULSE 69–106; RESP 12–17; TEMP 97.3–99.7; O2SAT 96–100
[2017-08-07] MEDS: ARTIFICIAL TEARS OPTH SOLN 15 ML BTL EACH EYE SCH ×4 (00:25→23:03)
[2017-08-07] MEDS: SODIUM CHLOR 0.45% 1000 ML INJ 1,000 ML IV SCH (00:26)
[2017-08-07] MEDS: PROPOFOL 1000 MG/100 ML INJ 100 ML IV PRN ×5 (00:34→20:25)
--- NOTE | 2017-08-07 03:59 | RADRPT ---
EXAM DATE/TIME: 08/07/2017 03:31 [facility] COMPARISON: CHEST SINGLE AP, August 06, 2017, 3:20. INDICATIONS : Shortness of breath, possible pulmonary disease. MEDICAL HISTORY : Cirrhosis. Hypertension Renal calculi. SURGICAL HISTORY : None. ENCOUNTER: Subsequent ACUITY: 4 - 6 days PAIN SCORE: Non-responsive. LOCATION: Bilateral chest FINDINGS: A single view of the chest demonstrates endotracheal tube in satisfactory position. NG enters stomach . Moderate size right pleural effusion at least partially loculated. Basilar airspace disease and sma ll left effusion. CONCLUSION: 1. Moderate size partially loculated right pleural effusion slightly increased from August 06. Bas ilar airspace disease. Endotracheal tube and nasogastric tube unchanged. Toño Glez MD on August 07, 2017 at 3:57 Board Certified Radiologist. This report was verified electronically.
[2017-08-07] MEDS: CHLORHEXIDINE GLUCONATE 2 % 1 PACK (2 CLOTHS) TOP SCH (04:00)
[2017-08-07] MEDS ORDERED: POTASSIUM CHLOR 20 MEQ PREMIX 100 ML IV PRN ×2 (04:45)
[2017-08-07] MEDS ORDERED: POTASSIUM CHLORIDE 25 MEQ EFFERVESCENT TAB PO PRN (04:45)
[2017-08-07] MEDS ORDERED: MAGNESIUM OXIDE 400 MG TAB PO PRN (04:45)
[2017-08-07] MEDS ORDERED: POTASSIUM CHLOR 40 MEQ PREMIX 100 ML IV PRN ×2 (04:45)
[2017-08-07] MEDS ORDERED: MAGNESIUM SULFATE INJ 2 GM in SODIUM CHLORIDE 0.9% INJ 96 ML IV PRN (04:45)
[2017-08-07] MEDS ORDERED: MAGNESIUM SULFATE INJ 4 GM in SODIUM CHLORIDE 0.9% INJ 92 ML IV PRN (04:45)
[2017-08-07] MEDS ORDERED: SODIUM PHOSPHATE INJ 30 MMOL in SODIUM CHLOR 0.9% 250 ML INJ 240 ML IV PRN (04:45)
[2017-08-07] MEDS ORDERED: POTASSIUM PHOSPHATE MONOBASIC 500 MG TAB PO/TUBE PRN (04:45)
[2017-08-07] MEDS ORDERED: POTASSIUM PHOSPHATE INJ 30 MMOL in SODIUM CHLOR 0.9% 250 ML INJ 250 ML IV PRN (04:45)
--- NOTE | 2017-08-07 05:33 | HHI.CCPN ---
Subjective Remarks/Hospital Course This is a 61-year-old male with history of alcoholic liver disease with esophageal varices, who presents today with complaints of 3 episodes of vomiting black coffee-ground emesis in the ED. The patient has had multiple admissions for the same diagnosis, last admission 04/2017. The patient currently has had an assessment at [facility] for liver transplantation his previous MELD score was 21. The patient is scheduled to return to [place] at the end of the year for evaluation for liver transplantation. The patient reports that last night at 11 PM he started experiencing some discomfort in his abdomen. He states he drank some water and then shortly thereafter vomited coffee-ground emesis. He states he had 3 further episodes with the last one having some maroon-colored blood. He presented to the ED at 5 AM He denies any shortness of breath. He denied any melanotic stools. Gastroenterology was consulted, Dr. Richards for evaluation. Critical care medicine was consulted for management. Upon my initial evaluation the patient was noted to be sinus tachycardia 110-118 heart rate, in no respiratory distress, with mild complaints of nausea recently being administered Compazine IV with resolved bleeding symptoms. The patient subsequently had another episode of hematemesis with approximately 400 cc of bright red blood. Patient scheduled to received 1 unit of FFP 2 units of platelets and will undergo EGD this a.m.. 08/05: Afebrile. Sinus rhythm. No acute events overnight. Serial H&H's appears stable, currently monitored every 6 hours. OGT minimal bilious gastric output, no heme noted. No melanotic stools. The patient was noted to be slightly hypernatremic with a sodium level 147, IV fluids changed to 1/2 normal saline. Urine output was noted to be marginal in the last 12 hours patient currently being bolused with 500 cc we'll monitor urine output. Patient remains a rest of -2 on sedation, currently nodding yes and no questions understands status post EGD patient remains intubated secondary to gastric varices, with concern for continued bleeding at the time per GI. Patient denies pain. 08/06: Afebrile. Quite agitated and not following commands on sedation vacation. Propofol and fentanyl drips resume. No bleeding noted. Hemoglobin appears stable Subjective: 08/07: Afebrile. Failed sedation vacation yesterday. A.m. ammonia level pending. Currently on lactulose and Xifaxan. Chest x-ray revealed right loculated pleural effusion Objective Vital Signs Date Time Temp Pulse Resp B/P (MAP) Pulse Ox O2 Delivery O2 Flow Rate FiO2 08/07/17 04:07 99 30 08/07/17 00:00 99.2 81 12 97/53 (68) 08/04/17 13:30 Mechanical Ventilator 08/04/17 09:00 2.00 Result Diagram: 08/06/17 1909 08/06/17 0457 Other Results Laboratory Tests Test 08/06/17 06:17 Blood Gas Puncture Site RT RADIAL Blood Gas Patient Temperature 98.6 Blood Gas HCO3 27 mmol/L (22-26) Blood Gas Base Excess 2.0 mmol/L (-2-2) Blood Gas Oxygen Saturation 95 % (90-100) Arterial Blood pH 7.37 (7.380-7.420) Arterial Blood Partial Pressure CO2 48 mmHg (38-42) Arterial Blood Partial Pressure O2 99 mmHg (61-120) Arterial Blood Oxygen Content 12.8 Vol % (12.0-20.0) Arterial Blood Carboxyhemoglobin 1.6 % (0-4) Arterial Blood Methemoglobin 1.2 % (0-2) Blood Gas Hemoglobin 9.4 G/DL (12.0-16.0) Oxygen Delivery Device VENT Blood Gas Ventilator Setting SEE COMMENTS Blood Gas Inspired Oxygen 40 % Imaging Last Impressions Chest X-Ray 08/07/17 0600 Signed Impressions: Service Date/Time: Monday, August 07, 2017 03:31 - CONCLUSION: 1. Moderate size partially loculated right pleural effusion slightly increased from August 06. Basilar airspace disease. Endotracheal tube and nasogastric tube unchanged. Toño Glez MD Objective Remarks GENERAL: 61-year-old male, critically ill currently orotracheally intubated SKIN: Warm and dry. No jaundice noted. Well-perfused HEAD: Atraumatic. Normocephalic. EYES: Pupils equal and round. No scleral icterus. No injection or drainage. ENT: No nasal bleeding or discharge. Mucous membranes pink and moist. OGT noted to LIWS minimal greenish bilious type secretions NECK: Trachea midline. No JVD. Orally intubated CARDIOVASCULAR: RRR. S1, S2. No S4. Without murmur RESPIRATORY: Diminished breath sounds right lower lobe. Symmetrical excursion. No wheezing GASTROINTESTINAL: Abdomen soft, non-tender, nondistended. Hypoactive bowel sounds are appreciated MUSCULOSKELETAL: Extremities with trace lower extremity edema NEUROLOGICAL:positive gag, corneal reflex. Moves all 4 extremity spontaneously but not to command. Urinary Catheter: Yes Assessment to: Continue Mcdonald insert reason: Prolonged Immobilization Vascular Central Line Catheter: No Assessment to: Continue A/P Assessment and Plan NEURO/Psych: Acute toxic metabolic encephalopathy secondary to elevated ammonia Currently on propofol drip at 45 mcg/kg per minute/fentanyl drip at 50 mcg hour for sedation while intubated Goal of RASS-2 Daily sedation vacation See GI for elevated ammonia workup Respiratory: Acute hypoxemic respiratory failure Loculated right pleural effusion ACV 14/500/04/25 Ventilator bundle Patient remains intubated secondary to high risk for aspiration secondary to gastric varices per GI recommendations Maintain head of bed at least 30, patient high risk for aspiration Bronchodilators with albuterol/ipratropium aerosols every 4 hours when necessary 08/06 - chest x-ray revealed worsening right lower lobe pleural effusion/ atelectasis If unable exit will check CT thorax without contrast to better define pleural effusion Cardiovascular: Sinus tachycardia most likely secondary to acute blood loss-resolved Maintain MAP greater than 65 mmHg Yesterday, initiation of spironolactone 25 mg twice a day, Bumex 1 now. Currently on Clinimix see FEN Renal: Hypovolemia secondary to acute blood loss-resolved Oliguria currently resolved Mcdonald catheter Monitor urine output Accurate I's and O's Creatinine currently within normal limits. Reassess in a.m. 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 Esophageal varices grade 1-2 no evidence of bleeding Currently on pantoprazole drip at 8 mg an hour Continue Sandostatin drip at 50 mg an hour GI following- Dr. Richards The patient is being followed by [facility] for transplant initial assessment was performed 02/10 with MELD score 21. The patient is scheduled for liver transplant evaluation October 2017 at [facility] MELD score 17 currently. Reassess in a.m. 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 Brewster consulted Rocephin 2 GM q 24h for upper GI bleed Endocrine: Hyperglycemia of critical illness Glucose monitoring per ICU protocol -- SSI FEN: Hypocalcemia Hypo-magnesium Hypophosphatemia ICU electrolyte protocol initiated. A.m. laboratories all pending On PPN with Clinimix 84 cc an hour while nothing by mouth/no central line. Prophylaxis: GI Prophylaxis Pantoprazole/Sandostatin DVT Prophylaxis -- SCDs No pharmacological prophylaxis in the setting of bleeding Lines: Peripheral IVs adequate access at this time Level III follow-up Ryley Casey MD Aug 07, 2017 05:33
[2017-08-07] MEDS ORDERED: BUMETANIDE INJ 1 MG/4 ML VIAL IV PUSH ONE (05:45)
[2017-08-07] MEDS: POTASSIUM CHLOR 10 MEQ PREMIX 100 ML IV SCH ×3 (06:20→11:11)
[2017-08-07] MEDS: OCTREOTIDE 500 MCG/NS 500 ML - 50 mcg/hr IV SCH ×6 (06:20→20:46)
[2017-08-07 06:45] LABS: APTT (PATIENT) 34.8 SEC (24.3-30.1); INTERNATIONAL NORMALIZED RATIO 1.4 RATIO; PROTHROMBIN TIME - PATIENT 15.4 SEC (9.8-11.6)
[2017-08-07 06:55] LABS: HEMATOCRIT 25.8 % (39.0-51.0); MEAN CELL VOLUME 96.2 FL (80.0-100.0); MEAN CORPUSCULAR HEMOGLOBIN 33.3 PG (27.0-34.0); MEAN CORPUSCULAR HGB CONC 34.6 % (32.0-36.0); PLATELET COUNT 44 TH/MM3 (150-450); RED BLOOD COUNT 2.68 MIL/MM3 (4.50-5.90); RED CELL DISTRIBUTION WIDTH 17.3 % (11.6-17.2); WHITE BLOOD COUNT 2.5 TH/MM3 (4.0-11.0)
[2017-08-07 07:11] LABS: ALKALINE PHOSPHATASE 70 U/L (45-117); ALT (GPT) 25 U/L (12-78); AMYLASE 12 U/L (25-115); ANION GAP 5 MEQ/L (5-15); AST (GOT) 35 U/L (15-37); BICARBONATE 27.7 MEQ/L (21.0-32.0); BLOOD UREA NITROGEN 9 MG/DL (7-18); CHLORIDE 111 MEQ/L (98-107); CREATINE KINASE 162 U/L (39-308); GLOMERULAR FILTRATION RATE 132 ML/MIN (>89); SODIUM (NA) 144 MEQ/L (136-145); TOTAL BILIRUBIN ADULT 2.5 MG/DL (0.2-1.0)
[2017-08-07 07:40] LABS: HEMO FLAGS AUTO DIFF
[2017-08-07] MEDS: SPIRONOLACTONE 25 MG TAB PO SCH ×2 (08:44→17:09)
[2017-08-07] MEDS: RIFAXIMIN 550 MG TAB PO SCH ×2 (08:44→20:25)
[2017-08-07] MEDS: LACTULOSE SYRUP 20 GM/30 ML CUP PO SCH ×4 (08:44→20:25)
[2017-08-07] MEDS: SODIUM CHLORIDE 0.9% FLUSH 10 ML FLUSH IV FLUSH SCH ×2 (08:44→20:26)
[2017-08-07] MEDS: DOCUSATE SODIUM 50 MG/SENNA 8.6 MG TAB PO SCH ×2 (08:56→20:25)
[2017-08-07] MEDS: CHLORHEXIDINE 0.12% (ORAL KIT) 15 ML CUP MT SCH ×2 (08:58→20:26)
[2017-08-07 09:57] LABS: BANDS 12 % (0-6); EOSINOPHILS 3 % (0-4); MYELOCYTES 2 % (0-0); NEUTROPHIL # MANUAL DIFF 2.2 TH/MM3 (1.8-7.7); POLYS (SEG NEUTROPHILS) 73 % (16-70); WBC DIFF SAMPLE 100
[2017-08-07 09:58] LABS: PLATELET ESTIMATE SMEAR LOW (NORMAL); PLATELET MORPHOLOGY NORMAL (NORMAL); SCAN/DIFF FINAL DIFF MANUAL
--- NOTE | 2017-08-07 10:38 | RADRPT ---
EXAM DATE/TIME: 08/07/2017 10:12 [facility] COMPARISON: CT THORAX W/O CONTRAST, May 27, 2017, 15:22. INDICATIONS : Rihgt pleural effusion RADIATION DOSE: 4.46 CTDIvol (mGy) MEDICAL HISTORY : Hypertension. Cirrhosis. Anemia esophageal varices SURGICAL HISTORY : Chest tube ENCOUNTER: Initial ACUITY: 1 day PAIN SCALE: Non-responsive LOCATION: chest TECHNIQUE: Volumetric scanning of the chest was performed. Using automated exposure control and adjustment of t he mA and/or kV according to patient size, radiation dose was kept as low as reasonably achievable to obtain optimal diagnostic quality images. DICOM format image data is available electronically for r eview and comparison. Follow-up recommendations for detected pulmonary nodules are based at a minimum on nodule size and pa tient risk factors according to Fleischner Society Guidelines. FINDINGS: LUNGS: Significant lower lobe consolidation is identified bilaterally. PLEURAE: Free flowing and loculated effusion are identified in the right hemithorax. There is large loculated appearing collection extending from the misty inferiorly to the lung base. Fluid is also identified tracking along the anterolateral pleural margin to the lung apex. Small effusion outlines the consolidated left lower lobe. MEDIASTINUM: The heart and great vessels demonstrate no acute abnormality. There is no mediastinal or hilar lymph adenopathy. A right paramediastinal pleural fluid collection is noted. AXILLAE: Within normal limits. No lymphadenopathy. MUSCULOSKELETAL: Within normal limits for patient age. MISCELLANEOUS: The visualized upper abdominal organs demonstrate no acute abnormality. CONCLUSION: 1. Moderate to large size free flowing and loculated right pleural effusion. 2. Small left pleural effusion. 3. Bilateral lower lobe consolidation worse on the right. 4. Endotracheal and nasogastric tubes in satisfactory position. Danielito Ryan MD on August 07, 2017 at 10:30 Board Certified Radiologist. This report was verified electronically.
[2017-08-07] MEDS: cefTRIAXone INJ 2,000 MG in SODIUM CHLORIDE 0.9% INJ 100 ML IV SCH (11:04)
[2017-08-07 17:49] LABS: MEAN CELL VOLUME 96.3 FL (80.0-100.0); MEAN CORPUSCULAR HEMOGLOBIN 33.4 PG (27.0-34.0); MEAN CORPUSCULAR HGB CONC 34.7 % (32.0-36.0); PLATELET COUNT 48 TH/MM3 (150-450); RED CELL DISTRIBUTION WIDTH 17.1 % (11.6-17.2); WHITE BLOOD COUNT 2.9 TH/MM3 (4.0-11.0)
[2017-08-07] MEDS: CLINIMIX E 4.25/5 2000 mL- >42 mls/hr IV SCH ×3 (20:26)
[2017-08-07] MEDS: PANTOPRAZOLE INJ 80 MG in SODIUM CHLORIDE 0.9% INJ 100 ML IV SCH (20:46)
[2017-08-08] VITALS (16 sets, daily range): BP systolic 104–124; BP diastolic 56–61; PULSE 72–107; RESP 14–15; TEMP 98.5–99.6; O2SAT 97–100
[2017-08-08] MEDS: PROPOFOL 1000 MG/100 ML INJ 100 ML IV PRN ×2 (01:21→08:06)
[2017-08-08] MEDS: CHLORHEXIDINE GLUCONATE 2 % 1 PACK (2 CLOTHS) TOP SCH (03:55)
[2017-08-08] MEDS: OCTREOTIDE 500 MCG/NS 500 ML - 50 mcg/hr IV SCH ×4 (06:37→17:51)
[2017-08-08] MEDS: PANTOPRAZOLE INJ 80 MG in SODIUM CHLORIDE 0.9% INJ 100 ML IV SCH ×2 (06:37→17:51)
[2017-08-08 07:49] LABS: ANION GAP 5 MEQ/L (5-15); AST (GOT) 40 U/L (15-37); BICARBONATE 28.2 MEQ/L (21.0-32.0); BLOOD UREA NITROGEN 13 MG/DL (7-18); CHLORIDE 105 MEQ/L (98-107); GLOMERULAR FILTRATION RATE 134 ML/MIN (>89); MAGNESIUM 1.6 MG/DL (1.5-2.5); POTASSIUM 3.8 MEQ/L (3.5-5.1); SODIUM (NA) 138 MEQ/L (136-145)
[2017-08-08 07:51] LABS: ALT (GPT) 27 U/L (12-78)
[2017-08-08 07:53] LABS: ALKALINE PHOSPHATASE 71 U/L (45-117); TOTAL BILIRUBIN ADULT 3.2 MG/DL (0.2-1.0)
[2017-08-08] MEDS: DOCUSATE SODIUM 50 MG/SENNA 8.6 MG TAB PO SCH ×2 (08:06→19:42)
[2017-08-08] MEDS: SPIRONOLACTONE 25 MG TAB PO SCH ×2 (08:06→16:31)
[2017-08-08] MEDS: SODIUM CHLORIDE 0.9% FLUSH 10 ML FLUSH IV FLUSH SCH ×2 (08:07→19:53)
[2017-08-08] MEDS: LACTULOSE SYRUP 20 GM/30 ML CUP PO SCH ×4 (08:07→19:41)
[2017-08-08] MEDS: POTASSIUM PHOSPHATE MONOBASIC 500 MG TAB PO PRN ×2 (08:07→13:54)
[2017-08-08] MEDS: RIFAXIMIN 550 MG TAB PO SCH ×2 (08:07→19:42)
[2017-08-08] MEDS: ARTIFICIAL TEARS OPTH SOLN 15 ML BTL EACH EYE SCH ×2 (08:07→16:31)
[2017-08-08] MEDS: CHLORHEXIDINE 0.12% (ORAL KIT) 15 ML CUP MT SCH ×2 (08:11→19:44)
[2017-08-08 08:21] LABS: INTERNATIONAL NORMALIZED RATIO 1.5 RATIO
[2017-08-08 08:31] LABS: APTT (PATIENT) 34.8 SEC (24.3-30.1)
[2017-08-08 08:33] LABS: AUTOMATED NEUTROPHIL # 1.8 TH/MM3 (1.8-7.7); BASOPHIL % 0.8 % (0.0-2.0); EOSINOPHIL # 0.1 TH/MM3 (0-0.4); EOSINOPHIL % 2.4 % (0.0-4.0); HEMATOCRIT 24.2 % (39.0-51.0); LYMPH % 6.1 % (9.0-44.0); LYMPHOCYTE # 0.1 TH/MM3 (1.0-4.8); MEAN CELL VOLUME 97.3 FL (80.0-100.0); MEAN CORPUSCULAR HEMOGLOBIN 34.3 PG (27.0-34.0); MEAN CORPUSCULAR HGB CONC 35.2 % (32.0-36.0); MONO % 11.7 % (0.0-8.0); RED BLOOD COUNT 2.48 MIL/MM3 (4.50-5.90); RED CELL DISTRIBUTION WIDTH 17.4 % (11.6-17.2)
[2017-08-08 08:34] LABS: HEMO FLAGS AUTO DIFF; PLATELET COUNT 34 TH/MM3 (150-450); WHITE BLOOD COUNT 2.4 TH/MM3 (4.0-11.0)
[2017-08-08 09:00] LABS: BURR CELLS 1+ (NORMAL); PLATELET ESTIMATE SMEAR LOW (NORMAL); PLATELET MORPHOLOGY NORMAL (NORMAL); SCAN/DIFF AUTO DIFF CONFIRMED
--- NOTE | 2017-08-08 09:23 | PD.ONC.PN ---
Subjective Subjective Remarks Afebrile overnight. Patient intubated, sedated. Per nurse, no rectal bleeding or bleeding per ET tube. Objective Data Date Time Temp Pulse Resp B/P (MAP) Pulse Ox O2 Delivery O2 Flow Rate FiO2 08/08/17 08:35 98 30 08/08/17 06:00 93 08/08/17 04:00 30 08/08/17 04:00 99.6 101 14 121/56 (77) 97 08/08/17 04:00 101 08/08/17 03:40 97 30 08/08/17 02:00 81 08/08/17 00:00 30 08/08/17 00:00 72 08/08/17 00:00 99.3 72 14 116/56 (76) 100 08/07/17 22:00 79 08/07/17 21:45 100 30 08/07/17 20:00 99.7 81 14 123/58 (79) 100 08/07/17 20:00 30 08/07/17 20:00 81 08/07/17 18:00 98 08/07/17 16:00 30 08/07/17 16:00 98.9 88 14 124/60 (81) 99 08/07/17 16:00 96 08/07/17 15:26 99 30 08/07/17 14:00 87 08/07/17 12:57 98 30 08/07/17 12:00 98.7 106 17 132/66 (88) 98 08/07/17 12:00 106 08/07/17 12:00 30 08/07/17 10:41 30 08/07/17 10:37 96 30 08/07/17 10:00 89 08/08/17 08/08/17 08/08/17 07:00 15:00 23:00 Intake Total 3839 ml Output Total 975 ml Balance 2864 ml Result Diagram: 08/08/1770408/08/17704 Laboratory Results Laboratory Tests Test 08/07/17 16:20 08/08/17 07:05 White Blood Count 2.9 TH/MM3 2.4 TH/MM3 Red Blood Count 2.80 MIL/MM3 2.48 MIL/MM3 Hemoglobin 9.4 GM/DL 8.5 GM/DL Hematocrit 27.0 % 24.2 % Mean Corpuscular Volume 96.3 FL 97.3 FL Mean Corpuscular Hemoglobin 33.4 PG 34.3 PG Mean Corpuscular Hemoglobin Concent 34.7 % 35.2 % Red Cell Distribution Width 17.1 % 17.4 % Platelet Count 48 TH/MM3 34 TH/MM3 Mean Platelet Volume 8.7 FL 8.2 FL Neutrophils (%) (Auto) 79.0 % Lymphocytes (%) (Auto) 6.1 % Monocytes (%) (Auto) 11.7 % Eosinophils (%) (Auto) 2.4 % Basophils (%) (Auto) 0.8 % Neutrophils # (Auto) 1.8 TH/MM3 Lymphocytes # (Auto) 0.1 TH/MM3 Monocytes # (Auto) 0.3 TH/MM3 Eosinophils # (Auto) 0.1 TH/MM3 Basophils # (Auto) 0.0 TH/MM3 CBC Comment AUTO DIFF Differential Comment AUTO DIFF CONFIRMED Platelet Estimate LOW Platelet Morphology Comment NORMAL [place] Cells 1+ Hematology Comments Prothrombin Time 17.0 SEC Prothromb Time International Ratio 1.5 RATIO Activated Partial Thromboplast Time 34.8 SEC Fibrinogen 218 mg/dL Blood Urea Nitrogen 13 MG/DL Creatinine 0.61 MG/DL Random Glucose 117 MG/DL Total Protein 5.4 GM/DL Albumin 2.0 GM/DL Calcium Level 7.6 MG/DL Phosphorus Level 2.2 MG/DL Magnesium Level 1.6 MG/DL Alkaline Phosphatase 71 U/L Aspartate Amino Transf (AST/SGOT) 40 U/L Alanine Aminotransferase (ALT/SGPT) 27 U/L Total Bilirubin 3.2 MG/DL Sodium Level 138 MEQ/L Potassium Level 3.8 MEQ/L Chloride Level 105 MEQ/L Carbon Dioxide Level 28.2 MEQ/L Anion Gap 5 MEQ/L Estimat Glomerular Filtration Rate 134 ML/MIN Ammonia 38 MCMOL/L Administered Medications Medications (Trade) Dose Ordered Sig/Armida Route PRN Reason Start Time Stop Time Status Last Admin Dose Admin Sodium Chloride (NS Flush) 2 ml BID IV FLUSH 08/04/17 09:00 08/08/17 08:07 Ondansetron HCl (Zofran Inj) 4 mg Q6H PRN IV PUSH NAUSEA OR VOMITING 08/04/17 08:45 08/04/17 11:16 Miscellaneous Information 1 Q361D XX 08/04/17 08:45 08/04/17 08:45 Chlorhexidine Gluconate (Chlorhexidine 2% Cloth) 3 pack Taper DAILY@04 TOP 08/05/17 04:00 08/01/18 03:59 08/05/17 04:00 Senna/Docusate Sodium (Dorina-Colace) 1 tab BID PO 08/04/17 09:00 08/08/17 08:06 Ceftriaxone Sodium 2000 mg/ Sodium Chloride 100 ml @ 200 mls/hr Q24H IV 08/04/17 11:00 08/07/17 11:04 Pantoprazole Sodium 80 mg/ Sodium Chloride 100 ml @ 10 mls/hr CONTINUOUS IV 08/04/17 11:00 08/08/17 06:37 Chlorhexidine Gluconate (Peridex 0.12% Liq) 15 ml BID@08,20 MT 08/04/17 20:00 08/08/17 08:11 Propofol 100 ml @ 2.1 mls/hr TITRATE PRN IV SEDATION 08/04/17 12:15 08/08/17 08:06 Artificial Tears (Tears Naturale Opth Soln) 1 drop Q8H EACH EYE 08/04/17 16:00 08/08/17 08:07 Fentanyl Citrate 250 ml @ 5 mls/hr TITRATE PRN IV SEDATION 08/04/17 15:00 08/06/17 05:48 Octreotide Acetate 500 mcg/ Sodium Chloride 500 ml @ 50 mls/hr Q10H IV 08/04/17 19:00 08/08/17 06:37 Rifaximin (Xifaxan) 550 mg BID PO 08/06/17 21:00 08/08/17 08:07 Lactulose (Lactulose Liq) 30 ml QID PO 08/06/17 18:00 08/08/17 08:07 Spironolactone (Aldactone) 25 mg BID@09,18 PO 08/06/17 18:00 08/08/17 08:06 Multivitamins 10 ml/Folic Acid 1 mg/Amino Acids/ Electrolytes/ Dextrose 2,010.2 ml @ 84 mls/hr [id number] IV 08/06/17 20:00 08/07/17 20:26 Magnesium Oxide (Mag-Ox) 800 mg UNSCH PRN PO For Magnesium 1.2 - 1.6 mg/dL 08/07/17 04:45 08/08/17 08:06 Potassium Phosphate (K-Phos) 2,000 mg Q4H PRN PO For Phosphorus < 2.5 mg/dL 08/07/17 04:45 08/08/17 08:07 Objective Remarks GENERAL: Intubated sedated male supine in bed. SKIN: Warm and dry. HEAD: Normocephalic. NECK: trachea midline. CARDIOVASCULAR: +S1/S2 RESPIRATORY: anterior lung salazar clear. GASTROINTESTINAL: Abdomen distended. EXTREMITIES: No cyanosis. +edema in all extremities. NEUROLOGICAL: intubated, sedated. Assessment/Plan Problem List: (1) Esophageal varices with hemorrhage ICD Codes: I85.01 - Esophageal varices with bleeding Status: Acute Plan: 08/08: no bleeding at present. monitor hgb/platelet count/fibrinogen. no transfusion needed at present. -- History of alcoholic-induced liver cirrhosis -- Most recently he underwent upper endoscopy and was found to have bleeding from esophageal varices. The GI physician was unable to band. -- On Protonix and Sandostatin gtt (2) Pancytopenia ICD Codes: D61.818 - Other pancytopenia Status: Acute Plan: -- Due to hypersplenism -- Supportive care --transfuse as needed. Assessment 61 y/o male admitted for GI bleeding Attending Statement sedated and intubated. NO Bleeding per RN. continue [place] support as needed. D/W pt friend, he stated that pt still drinks alcohol. Pt was last seen by DR Hernandez. I Will ask to see him tomorrow. The exam, history, and the medical decision-making described in the above note were completed with the assistance of the mid-level provider. I reviewed and agree with the findings presented. I attest that I had a [id number] encounter with the patient on the same day, and personally performed and documented my assessment and findings in the medical record. Kady Byers Aug 08, 2017 09:23 Estefany Brewster MD Aug 08, 2017 15:33
[2017-08-08] MEDS: cefTRIAXone INJ 2,000 MG in SODIUM CHLORIDE 0.9% INJ 100 ML IV SCH (12:53)
--- NOTE | 2017-08-08 13:45 | HHI.GIFU ---
Subjective Remarks Resting in bed. Sedated on vent. No active bleeding. OGT to LIWS with liz colored gastric secretions. No BM. (Natalia Anderson) Objective Vitals I&O Vital Signs Date Time Temp Pulse Resp B/P (MAP) Pulse Ox O2 Delivery O2 Flow Rate FiO2 08/08/17 10:00 107 08/08/17 08:35 98 30 08/08/17 08:00 107 08/08/17 08:00 30 08/08/17 08:00 98.5 105 14 104/59 (74) 98 08/08/17 08:00 99.6 101 14 121/56 (77) 97 08/08/17 08:00 30 08/08/17 06:00 93 08/08/17 04:00 30 08/08/17 04:00 99.6 101 14 121/56 (77) 97 08/08/17 04:00 101 08/08/17 03:40 97 30 08/08/17 02:00 81 08/08/17 00:00 30 08/08/17 00:00 72 08/08/17 00:00 99.3 72 14 116/56 (76) 100 08/07/17 22:00 79 08/07/17 21:45 100 30 08/07/17 20:00 99.7 81 14 123/58 (79) 100 08/07/17 20:00 30 08/07/17 20:00 81 08/07/17 18:00 98 08/07/17 16:00 30 08/07/17 16:00 98.9 88 14 124/60 (81) 99 08/07/17 16:00 96 08/07/17 15:26 99 30 08/07/17 14:00 87 I/O 08/07/17 08/07/17 08/07/17 08/08/17 08/08/17 08/08/17 07:00 15:00 23:00 07:00 15:00 23:00 Intake Total 4771 ml 300 ml 3839 ml Output Total 850 ml 2275 ml 975 ml Balance 3921 ml 300 ml -2275 ml 2864 ml Intake IV Total 3343 ml 300 ml 1839 ml TPN/PPN 1428 ml 2000 ml Output Urine Total 850 ml 2275 ml 975 ml # Bowel Movements 0 0 1 Laboratory Laboratory Tests Test 08/07/17 16:20 08/08/17 07:05 White Blood Count 2.9 2.4 Red Blood Count 2.80 2.48 Hemoglobin 9.4 8.5 Hematocrit 27.0 24.2 Mean Corpuscular Volume 96.3 97.3 Mean Corpuscular Hemoglobin 33.4 34.3 Mean Corpuscular Hemoglobin Concent 34.7 35.2 Red Cell Distribution Width 17.1 17.4 Platelet Count 48 34 Mean Platelet Volume 8.7 8.2 Neutrophils (%) (Auto) 79.0 Lymphocytes (%) (Auto) 6.1 Monocytes (%) (Auto) 11.7 Eosinophils (%) (Auto) 2.4 Basophils (%) (Auto) 0.8 Neutrophils # (Auto) 1.8 Lymphocytes # (Auto) 0.1 Monocytes # (Auto) 0.3 Eosinophils # (Auto) 0.1 Basophils # (Auto) 0.0 CBC Comment AUTO DIFF Differential Comment AUTO DIFF CONFIRMED Platelet Estimate LOW Platelet Morphology Comment NORMAL [place] Cells 1+ Hematology Comments Prothrombin Time 17.0 Prothromb Time International Ratio 1.5 Activated Partial Thromboplast Time 34.8 Fibrinogen 218 Blood Urea Nitrogen 13 Creatinine 0.61 Random Glucose 117 Total Protein 5.4 Albumin 2.0 Calcium Level 7.6 Phosphorus Level 2.2 Magnesium Level 1.6 Alkaline Phosphatase 71 Aspartate Amino Transf (AST/SGOT) 40 Alanine Aminotransferase (ALT/SGPT) 27 Total Bilirubin 3.2 Sodium Level 138 Potassium Level 3.8 Chloride Level 105 Carbon Dioxide Level 28.2 Anion Gap 5 Estimat Glomerular Filtration Rate 134 Ammonia 38 Imaging Last Impressions Chest X-Ray 08/07/17 0600 Signed Impressions: Service Date/Time: Monday, August 07, 2017 03:31 - CONCLUSION: 1. Moderate size partially loculated right pleural effusion slightly increased from August 06. Basilar airspace disease. Endotracheal tube and nasogastric tube unchanged. Toño Glez MD Chest CT 08/07/17 0000 Signed Impressions: Service Date/Time: Monday, August 07, 2017 10:12 - CONCLUSION: 1. Moderate to large size free flowing and loculated right pleural effusion. 2. Small left pleural effusion. 3. Bilateral lower lobe consolidation worse on the right. 4. Endotracheal and nasogastric tubes in satisfactory position. Danielito Ryan MD Physical Exam HEENT: Normocephalic; atraumatic; no jaundice. CHEST: Resp even/unlabored, on vent. CARDIAC: ST, mild ABDOMEN: Soft, distended, hepatosplenomegaly; bowel sounds are present in all four quadrants. OGT with liz colored material EXTREMITIES: No clubbing, cyanosis, or edema. SKIN: Normal; no rash; no jaundice. CPAS: Sedated on vent. (Natalia Anderson) Assessment and Plan Plan ASSESSMENT: - Recurrent upper GIB, hematemesis. Hospitalized in April of 2017 and was evaluated with S/P EGD (05/24/17)-----> Distal esophageal Barretts esophagus and grade 1-2 varices, Stomach: no blood. No ulcers. Mucosa does not appear edematous duodenum: normal. S/P Angiogram of the Celiac, Superior Mesenteric Artery (05/24/17)---> no hemorrhagic focus identified. S/P EGD with needle injection for bleeding (08/04/18), official report pending, according to emr note, gastric varices-bleeding unable to band, chance of rebeed, patient to remain intubated. Esophageal varices grade 1-2 no evidence of bleeding. OGT to LIWS with golen colored bilious material. No active gib at this time. Octreotide, Protonix gtt. HH 8.5/24.2. TPN. - Abdominal distention. Check KUB - Anemia, acute blood loss. HH 8.5/24.2. - Severe thrombocytopenia, coagulopathy. Plt 34,000, PT 17.0, INR 1.5. - Liver cirrhosis. Established at [facility], Caitlin Styles . Last seen in January. - GERD, Russell's Esophagus. Protonix. PLAN: - NPO - Check KUB - OGT to LIWS - Cont. Protonix gtt - Cont. Octreotide gtt - Cont. Xifaxan/Lactulose - TPN - Monitor labs - Transfuse as necessary - Supportive care - Further recommendations to follow based on results of above - Pt seen and examined by Dr. Bennett and myself and this note is written on her behalf (Natalia Anderson) Physician Comments seen, examined agree with above we will contact [facility] for possible additional recommendations , if any (Dai Bennett MD) Natalia Anderson Aug 08, 2017 13:45 Dai Bennett MD Aug 08, 2017 18:55
[2017-08-08] MEDS: fentaNYL DRIP 250 ML IV PRN (13:55)
--- NOTE | 2017-08-08 15:54 | RADRPT ---
EXAM DATE/TIME: 08/08/2017 15:11 [facility] COMPARISON: CHEST SINGLE AP, August 07, 2017, 3:31. INDICATIONS : Abdominal pain. MEDICAL HISTORY : Cirrhosis. Hypertension Renal calculi. SURGICAL HISTORY : None. ENCOUNTER: Subsequent ACUITY: 1 week PAIN SCORE: Non-responsive. LOCATION: Abdomen. FINDINGS: A nasogastric tube has its tip in the distal stomach. Air-filled mildly dilated loops of colon are n oted suggesting a possible ileus or distal colonic obstruction. Clinical correlation is recommended. Scattered phleboliths are noted within the pelvis. Degenerative changes are noted throughout the t horacolumbar spine. Right pleural effusion is again noted. No free intraperitoneal air is noted. CONCLUSION: 1. Air-filled mildly dilated loops of colon suggesting ileus or distal colonic obstruction. Clinical correlation is recommended. 2. Right pleural effusion. 3. Degenerative changes throughout the thoracolumbar spine. Tomer Ryan MD on August 08, 2017 at 15:49 Board Certified Radiologist. This report was verified electronically.
[2017-08-08] MEDS ORDERED: DEXMEDETOMIDINE INJ 200 MCG in SODIUM CHLORIDE 0.9% INJ 50 ML IV PRN (16:00)
--- NOTE | 2017-08-08 16:24 | HHI.CCPN ---
Subjective Remarks/Hospital Course This is a 61-year-old male with history of alcoholic liver disease with esophageal varices, who presents today with complaints of 3 episodes of vomiting black coffee-ground emesis in the ED. The patient has had multiple admissions for the same diagnosis, last admission 04/2017. The patient currently has had an assessment at [facility] for liver transplantation his previous MELD score was 21. The patient is scheduled to return to [facility] at the end of the year for evaluation for liver transplantation. The patient reports that last night at 11 PM he started experiencing some discomfort in his abdomen. He states he drank some water and then shortly thereafter vomited coffee-ground emesis. He states he had 3 further episodes with the last one having some maroon-colored blood. He presented to the ED at 5 AM He denies any shortness of breath. He denied any melanotic stools. Gastroenterology was consulted, Dr. Richards for evaluation. Critical care medicine was consulted for management. Upon my initial evaluation the patient was noted to be sinus tachycardia 110-118 heart rate, in no respiratory distress, with mild complaints of nausea recently being administered Compazine IV with resolved bleeding symptoms. The patient subsequently had another episode of hematemesis with approximately 400 cc of bright red blood. Patient scheduled to received 1 unit of FFP 2 units of platelets and will undergo EGD this a.m.. 08/05: Afebrile. Sinus rhythm. No acute events overnight. Serial H&H's appears stable, currently monitored every 6 hours. OGT minimal bilious gastric output, no heme noted. No melanotic stools. The patient was noted to be slightly hypernatremic with a sodium level 147, IV fluids changed to 1/2 normal saline. Urine output was noted to be marginal in the last 12 hours patient currently being bolused with 500 cc we'll monitor urine output. Patient remains a rest of -2 on sedation, currently nodding yes and no questions understands status post EGD patient remains intubated secondary to gastric varices, with concern for continued bleeding at the time per GI. Patient denies pain. 08/06: Afebrile. Quite agitated and not following commands on sedation vacation. Propofol and fentanyl drips resume. No bleeding noted. Hemoglobin appears stable Subjective: 08/07: Afebrile. Failed sedation vacation yesterday. A.m. ammonia level pending. Currently on lactulose and Xifaxan. Chest x-ray revealed right loculated pleural effusion 08/08: Attempts at CPAP trials yesterday lasted only 5-10 minutes secondary to agitation. Patient to be placed on Precedex infusion propofol and fentanyl to be discontinued. Chest x-ray was noted to have a moderate size right pleural effusion however INR is currently 1.5 with a platelet count of 32. Plan for CPAP trials on Precedex only, confer with hematology regarding transfusion of platelets for possible thoracentesis by IR for loculated right moderate-sized pleural effusion. Objective Vital Signs Date Time Temp Pulse Resp B/P (MAP) Pulse Ox O2 Delivery O2 Flow Rate FiO2 08/08/17 14:00 104 08/08/17 12:00 30 08/08/17 12:00 99.4 14 124/61 (82) 99 08/04/17 13:30 Mechanical Ventilator 08/04/17 09:00 2.00 Intake and Output 08/08/17 08/08/17 08/09/17 08:00 16:00 00:00 Intake Total 3839 ml 450 ml Output Total 975 ml Balance 2864 ml 450 ml Result Diagram: 08/08/17 0705 08/08/17 0705 Imaging Last Impressions Chest X-Ray 08/07/17 0600 Signed Impressions: Service Date/Time: Monday, August 07, 2017 03:31 - CONCLUSION: 1. Moderate size partially loculated right pleural effusion slightly increased from August 06. Basilar airspace disease. Endotracheal tube and nasogastric tube unchanged. Toño Glez MD Objective Remarks GENERAL: 61-year-old male, critically ill currently orotracheally intubated and sedated SKIN: Warm and dry. No jaundice noted. Well-perfused HEAD: Atraumatic. Normocephalic. EYES: Pupils equal and round. No scleral icterus. No injection or drainage. ENT: No nasal bleeding or discharge. Mucous membranes pink and moist. OGT noted to LIWS minimal greenish bilious type secretions NECK: Trachea midline. No JVD. Orally intubated CARDIOVASCULAR: RRR. S1, S2. No S4. Without murmur RESPIRATORY: Mechanical ventilation Diminished breath sounds right lower lobe. No wheezing GASTROINTESTINAL: Abdomen soft, non-tender, nondistended. Hypoactive bowel sounds are appreciated MUSCULOSKELETAL: Extremities with trace lower extremity edema NEUROLOGICAL:positive gag, corneal reflex. Moves all 4 extremity spontaneously but not to command. Previously patient alert and oriented following commands prior to intubation and postintubation. Currently on propofol and fentanyl infusions plans for discontinuation with plan for Precedex infusion only. A/P Assessment and Plan NEURO/Psych: Acute toxic metabolic encephalopathy secondary to elevated ammonia Currently on propofol drip at 45 mcg/kg per minute/fentanyl drip at 50 mcg hour for sedation while intubated. Discontinue/wean off propofol and fentanyl infusion, again Precedex only infusion for plans for CPAP trials Goal of RASS-2 Daily sedation vacation See GI for elevated ammonia workup Respiratory: Acute hypoxemic respiratory failure Loculated right pleural effusion ACV 14/500/30 Ventilator bundle Patient remains intubated secondary to high risk for aspiration secondary to gastric varices per GI recommendations Maintain head of bed at least 30, patient high risk for aspiration Bronchodilators with albuterol/ipratropium aerosols every 4 hours when necessary 08/08/chest [id number] moderate right pleural effusion-plan for possible IR consultation after correction of coagulation parameters for possible thoracentesis Will begin CPAP trials and If unable extubate will check CT thorax without contrast to better define pleural effusion vs. directional coagulopathy transferred to IR for possible thoracentesis and quantification of pleural effusion Cardiovascular: Sinus tachycardia most likely secondary to acute blood loss-resolved Maintain MAP greater than 65 mmHg spironolactone 25 mg twice a day, 08/07 Bumex 1 dose Currently on Clinimix see FEN Renal: Hypovolemia secondary to acute blood loss-resolved Oliguria currently resolved Mcdonald catheter Monitor urine output Accurate I's and O's Creatinine currently within normal limits. 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 Esophageal varices grade 1-2 no evidence of bleeding Currently on pantoprazole drip at 8 mg an hour Continue Sandostatin drip at 50 mg an hour GI following- Dr. Richards 08/08-UB for gastric distention follow-up results The patient is being followed by [facility] for transplant initial assessment was performed 02/10 with MELD score 21. The patient is scheduled for liver transplant evaluation October 2017 at [facility] MELD score 17 currently. Reassess in a.m. Currently on 1/2 normal saline 84 cc/hour start TPN tonight Ammonia level 89 - 08/05, continue to follow trends 08/07 pending Lactulose 30 cc 4 times a day and rifaximin 550 mill grams every 12 hours per GI management If rebleeds consideration for TIPS Heme/ID: Pancytopenia - chronic secondary to hypersplenism secondary to liver cirrhosis Coagulopathy - secondary underlying liver disease Keep 2 units packed red blood cells on hold, keep 2 ahead Serial H&H's Status post 4 packed platelets, 2 PRBCs, 1 liquid plasma and 1 cryo- Hematology oncology consulted/Dr. Brewster following Rocephin 2 GM q 24h for upper GI bleed Endocrine: Hyperglycemia of critical illness Glucose monitoring per ICU protocol -- SSI FEN: Hypocalcemia Hypo-magnesium Hypophosphatemia ICU electrolyte protocol initiated. A.m. laboratories all pending On PPN with Clinimix 84 cc an hour while nothing by mouth/no central line. Prophylaxis: GI Prophylaxis Pantoprazole/Sandostatin DVT Prophylaxis -- SCDs No pharmacological prophylaxis in the setting of bleeding Lines: Peripheral IVs adequate access at this time Level 3 follow-up Physician Delilah Solis MD Aug 08, 2017 16:24
[2017-08-08] MEDS: CLINIMIX E 4.25/5 2000 mL- >42 mls/hr IV SCH ×3 (19:41)
[2017-08-08] MEDS ORDERED: DEXMEDETOMIDINE INJ 1,000 MCG in SODIUM CHLOR 0.9% 250 ML INJ 250 ML IV PRN (20:15)
[2017-08-08] MEDS ORDERED: DEXMEDETOMIDINE INJ 1,000 MCG in SODIUM CHLOR 0.9% 250 ML INJ 240 ML IV PRN (20:15)
[2017-08-08] MEDS: DEXMEDETOMIDINE INJ 1,000 MCG in SODIUM CHLOR 0.9% 250 ML INJ 240 ML IV PRN ×2 (20:17→21:23)
[2017-08-09] VITALS (25 sets, daily range): BP systolic 98–142; BP diastolic 56–76; PULSE 44–66; RESP 14; TEMP 95.6–97.8; O2SAT 91–100
[2017-08-09] MEDS: ARTIFICIAL TEARS OPTH SOLN 15 ML BTL EACH EYE SCH ×4 (00:46→23:28)
[2017-08-09] MEDS: CHLORHEXIDINE GLUCONATE 2 % 1 PACK (2 CLOTHS) TOP SCH (03:16)
[2017-08-09] MEDS: PANTOPRAZOLE INJ 80 MG in SODIUM CHLORIDE 0.9% INJ 100 ML IV SCH ×2 (04:18→20:10)
[2017-08-09 04:58] LABS: BLOOD GAS BASE EXCESS 0.5 mmol/L (-2-2); BLOOD GAS CARBOXYHEMOGLOBIN 2.1 % (0-4); BLOOD GAS HCO3 24 mmol/L (22-26); BLOOD GAS METHEMOGLOBIN 1.1 % (0-2); BLOOD GAS O2 HGB SATURATION 95 % (90-100); BLOOD GAS OXYGEN CONTENT 13.6 Vol % (12.0-20.0); BLOOD GAS PCO2 35 mmHg (38-42); BLOOD GAS PO2 93 mmHg (61-120); BLOOD GAS TOTAL HGB 10.1 G/DL (12.0-16.0); TEMP CORR TO 98.6
[2017-08-09 04:59] LABS: CRITICAL VALUE NO; DRAW SITE LT RADIAL; FIO2 30 %; NUMBER OF ARTERIAL PUNCTURES 1; OXYGEN DEVICE VENT; STAT NO; ULNAR PULSE PRESENT; VENT SETTINGS SEE COMMENTS
--- NOTE | 2017-08-09 06:07 | RADRPT ---
EXAM DATE/TIME: 08/09/2017 04:35 [facility] COMPARISON: CHEST SINGLE AP, August 07, 2017, 3:31. INDICATIONS : Shortness of breath. MEDICAL HISTORY : Hypertension. SURGICAL HISTORY : None. ENCOUNTER: Subsequent ACUITY: 1 week PAIN SCORE: Non-responsive. LOCATION: Bilateral chest FINDINGS: A single view of the chest demonstrates endotracheal tube in good position. Nasogastric tube in the s tomach. Moderate right effusion basilar airspace disease similar to August 07. CONCLUSION: 1. Endotracheal tube and nasogastric tube in satisfactory position. Moderate right effusion. Findings similar to August 07. Toño Glez MD on August 09, 2017 at 6:05 Board Certified Radiologist. This report was verified electronically.
[2017-08-09] MEDS: DEXMEDETOMIDINE INJ 1,000 MCG in SODIUM CHLOR 0.9% 250 ML INJ 240 ML IV PRN (06:37)
[2017-08-09 07:31] LABS: AUTOMATED NEUTROPHIL # 1.2 TH/MM3 (1.8-7.7); BASOPHIL % 0.6 % (0.0-2.0); EOSINOPHIL # 0.1 TH/MM3 (0-0.4); EOSINOPHIL % 5.5 % (0.0-4.0); HEMATOCRIT 26.3 % (39.0-51.0); LYMPH % 8.7 % (9.0-44.0); LYMPHOCYTE # 0.1 TH/MM3 (1.0-4.8); MEAN CELL VOLUME 95.4 FL (80.0-100.0); MEAN CORPUSCULAR HEMOGLOBIN 33.7 PG (27.0-34.0); MEAN CORPUSCULAR HGB CONC 35.3 % (32.0-36.0); MONO % 15.2 % (0.0-8.0); PLATELET COUNT 25 TH/MM3 (150-450); RED BLOOD COUNT 2.76 MIL/MM3 (4.50-5.90); RED CELL DISTRIBUTION WIDTH 17.3 % (11.6-17.2); WHITE BLOOD COUNT 1.7 TH/MM3 (4.0-11.0)
[2017-08-09 07:34] LABS: HEMO FLAGS AUTO DIFF
[2017-08-09 07:39] LABS: APTT (PATIENT) 38.8 SEC (24.3-30.1); INTERNATIONAL NORMALIZED RATIO 1.7 RATIO; PROTHROMBIN TIME - PATIENT 19.2 SEC (9.8-11.6)
[2017-08-09 08:06] LABS: BICARBONATE 25.7 MEQ/L (21.0-32.0); MAGNESIUM 1.8 MG/DL (1.5-2.5); POTASSIUM 4.2 MEQ/L (3.5-5.1)
[2017-08-09 08:17] LABS: BANDS 8 % (0-6); EOSINOPHILS 5 % (0-4); METAMYELOCYTES 1 % (0-1); NEUTROPHIL # MANUAL DIFF 1.3 TH/MM3 (1.8-7.7); PLATELET ESTIMATE SMEAR LOW (NORMAL); PLATELET MORPHOLOGY NORMAL (NORMAL); POLYS (SEG NEUTROPHILS) 65 % (16-70); SCAN/DIFF FINAL DIFF MANUAL; WBC DIFF SAMPLE 100
[2017-08-09 08:18] LABS: OVALOCYTES 1+ (NORMAL)
[2017-08-09] MEDS: SODIUM CHLORIDE 0.9% FLUSH 10 ML FLUSH IV FLUSH SCH ×2 (08:31→20:11)
[2017-08-09] MEDS: LACTULOSE SYRUP 20 GM/30 ML CUP PO SCH ×4 (08:31→20:11)
[2017-08-09] MEDS: DOCUSATE SODIUM 50 MG/SENNA 8.6 MG TAB PO SCH ×2 (08:31→20:11)
[2017-08-09] MEDS: RIFAXIMIN 550 MG TAB PO SCH ×2 (08:31→20:35)
[2017-08-09] MEDS: SPIRONOLACTONE 25 MG TAB PO SCH ×2 (08:31→17:30)
[2017-08-09] MEDS: OCTREOTIDE 500 MCG/NS 500 ML - 50 mcg/hr IV SCH ×4 (08:31→20:10)
[2017-08-09] MEDS: CHLORHEXIDINE 0.12% (ORAL KIT) 15 ML CUP MT SCH ×2 (08:32→20:11)
[2017-08-09] MEDS ORDERED: SODIUM CHLOR 0.9% 250 ML INJ 250 ML IV ONE (08:45)
--- NOTE | 2017-08-09 09:28 | HHI.GIFU ---
Subjective Remarks Resting in bed. 400cc gastric output 11-7 shift. Worsening distention today. Nurse reports that patient had several liquid stools overnight. No active GI bleeding. (Natalia Anderson) Objective Vitals I&O Vital Signs Date Time Temp Pulse Resp B/P (MAP) Pulse Ox O2 Delivery O2 Flow Rate FiO2 08/09/17 08:00 97.8 57 14 128/63 (84) 98 08/09/17 08:00 30 08/09/17 08:00 53 08/09/17 07:29 99 30 08/09/17 06:00 60 08/09/17 04:10 99 30 08/09/17 04:00 97.6 66 14 127/61 (83) 97 08/09/17 04:00 66 08/09/17 04:00 30 08/09/17 02:00 65 08/09/17 01:49 98 30 08/09/17 00:00 66 08/09/17 00:00 97.8 66 14 136/64 (88) 98 08/09/17 00:00 30 08/08/17 22:00 72 08/08/17 21:13 99 30 08/08/17 20:00 30 08/08/17 20:00 98.8 87 15 104/59 (74) 99 08/08/17 20:00 87 08/08/17 18:00 79 08/08/17 17:54 100 30 08/08/17 16:00 82 08/08/17 16:00 99.3 82 14 124/61 (82) 100 08/08/17 16:00 30 08/08/17 14:00 104 08/08/17 12:00 30 08/08/17 12:00 99.4 99 14 124/61 (82) 99 08/08/17 12:00 99 08/08/17 10:00 107 I/O 08/08/17 08/08/17 08/08/17 08/09/17 08/09/17 08/09/17 07:00 15:00 23:00 07:00 15:00 23:00 Intake Total 3839 ml 450 ml 3575 ml 850 ml Output Total 975 ml 850 ml 675 ml Balance 2864 ml 450 ml 2725 ml 175 ml Intake IV Total 1839 ml 450 ml 3575 ml 850 ml TPN/PPN 2000 ml Output Urine Total 975 ml 600 ml 675 ml Gastric Drainage Total 250 ml # Bowel Movements 1 1 1 Laboratory Laboratory Tests Test 08/09/17 04:39 08/09/17 07:14 Blood Gas Puncture Site LT RADIAL Blood Gas Patient Temperature 98.6 Blood Gas HCO3 24 Blood Gas Base Excess 0.5 Blood Gas Oxygen Saturation 95 Arterial Blood pH 7.45 Arterial Blood Partial Pressure CO2 35 Arterial Blood Partial Pressure O2 93 Arterial Blood Oxygen Content 13.6 Arterial Blood Carboxyhemoglobin 2.1 Arterial Blood Methemoglobin 1.1 Blood Gas Hemoglobin 10.1 Oxygen Delivery Device VENT Blood Gas Ventilator Setting SEE COMMENTS Blood Gas Inspired Oxygen 30 White Blood Count 1.7 Red Blood Count 2.76 Hemoglobin 9.3 Hematocrit 26.3 Mean Corpuscular Volume 95.4 Mean Corpuscular Hemoglobin 33.7 Mean Corpuscular Hemoglobin Concent 35.3 Red Cell Distribution Width 17.3 Platelet Count 25 Mean Platelet Volume 7.7 Neutrophils (%) (Auto) 70.0 Lymphocytes (%) (Auto) 8.7 Monocytes (%) (Auto) 15.2 Eosinophils (%) (Auto) 5.5 Basophils (%) (Auto) 0.6 Neutrophils # (Auto) 1.2 Lymphocytes # (Auto) 0.1 Monocytes # (Auto) 0.3 Eosinophils # (Auto) 0.1 Basophils # (Auto) 0.0 CBC Comment AUTO DIFF Differential Total Cells Counted 100 Neutrophils % (Manual) 65 Band Neutrophils % 8 Lymphocytes % 12 Monocytes % 9 Eosinophils % 5 Neutrophils # (Manual) 1.3 Metamyelocytes 1 Differential Comment FINAL DIFF MANUAL Platelet Estimate LOW Platelet Morphology Comment NORMAL Ovalocytes 1+ Prothrombin Time 19.2 Prothromb Time International Ratio 1.7 Activated Partial Thromboplast Time 38.8 Fibrinogen 289 Blood Urea Nitrogen 19 Creatinine 0.49 Random Glucose 149 Calcium Level 7.7 Phosphorus Level 2.4 Magnesium Level 1.8 Sodium Level 141 Potassium Level 4.2 Chloride Level 108 Carbon Dioxide Level 25.7 Anion Gap 7 Estimat Glomerular Filtration Rate 173 Imaging Last Impressions Chest X-Ray 08/09/17 0600 Signed Impressions: Service Date/Time: Wednesday, August 09, 2017 04:35 - CONCLUSION: 1. Endotracheal tube and nasogastric tube in satisfactory position. Moderate right effusion. Findings similar to August 07. Toño Glez MD Abdomen X-Ray 08/08/17 0000 Signed Impressions: Service Date/Time: Tuesday, August 08, 2017 15:11 - CONCLUSION: 1. Air-filled mildly dilated loops of colon suggesting ileus or distal colonic obstruction. Clinical correlation is recommended. 2. Right pleural effusion. 3. Degenerative changes throughout the thoracolumbar spine. Tomer Ryan MD Chest CT 08/07/17 0000 Signed Impressions: Service Date/Time: Monday, August 07, 2017 10:12 - CONCLUSION: 1. Moderate to large size free flowing and loculated right pleural effusion. 2. Small left pleural effusion. 3. Bilateral lower lobe consolidation worse on the right. 4. Endotracheal and nasogastric tubes in satisfactory position. Danielito Ryan MD Physical Exam HEENT: Normocephalic; atraumatic; no jaundice. CHEST: Resp even/unlabored, on vent. CARDIAC: ST, mild ABDOMEN: Soft, distended, hepatosplenomegaly; bowel sounds are present in all four quadrants. OGT with bilious colored material SKIN: Normal; no rash; no jaundice. 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 (Natalia Anderson) Assessment and Plan Plan ASSESSMENT: - Recurrent upper GIB, hematemesis. Hospitalized in April of 2017 and was evaluated with S/P EGD (05/24/17)-----> Distal esophageal Barretts esophagus and grade 1-2 varices, Stomach: no blood. No ulcers. Mucosa does not appear edematous duodenum: normal. S/P Angiogram of the Celiac, Superior Mesenteric Artery (05/24/17)---> no hemorrhagic focus identified. S/P EGD with needle injection for bleeding (08/04/18), official report pending, according to emr note, gastric varices-bleeding unable to band, chance of rebeed, patient to remain intubated. Esophageal varices grade 1-2 no evidence of bleeding. OGT to LIWS with golen colored bilious material. No active gib at this time. Octreotide, Protonix gtt. HH 8.5/24.2. TPN. Octreotide, Protonix Gtt. Ceftriaxone - Colonic ileus. KUB (08/08/17)-----> Air filled mildly dilated loops of colon suggesting ileus or distal colonic obstruction. Clinical correlation is recommended. Right pleural effusion, degenerative changes throughout the thoracolumbar spine. Clinically, he seems more distended today, 400cc gastric output last shift. Nurse reports multiple liquid stools over night. Getting FFP/Platelets today. After platelets, give [address] red rectal tube to gravity. Rpt. KUB. - Anemia, acute blood loss. HH 9.3/26.3. - Severe thrombocytopenia, coagulopathy. Plt 25,000, PT 19.2, INR 1.7. Hematology following, getting FFP/Platelets today. - Liver cirrhosis. Established at [facility], Caitlin Styles . Last seen in January. Spironolactone - Hepatic encephalopathy. Lactulose. Xifaxan - GERD, Russell's Esophagus. Protonix. - Respiratory failure, right pleural effusion. Vent per [facility] PLAN: - NPO - OGT to LIWS - After platelet/FFP, Give [address] RED rectal tube to gravity - Rpt. KUB - Cont. Protonix gtt - Cont. Octreotide gtt - Cont. Xifaxan/Lactulose - Cont. Spironolactone - Cont. TPN - Monitor labs - Hematology following, transfusions per hematology - Supportive care - Further recommendations to follow based on results of above - Pt seen and examined by Dr. Bennett and myself and this note is written on her behalf Called and spoke to Caitlin Styles (liver community outreach coordinator) at [place] re: hospitalization, condition, chances of evaluation for liver transplant. States that patient had a highly positive blood alcohol test in January of 2017 and that pts are usually banned for program with this, but that because patient adamantly denied using alcohol, the committee agreed to reconsider him if he did not have any further positive etoh labs x 1 year (with monthly random alcohol levels). Since that time, he has remained negative (6 months), but state that they would also have to take into consideration the fact that he takes 3-4 days prior to having these labs drawn. She states that at this time, she does not believe that they will consider him for transplant, but that our attending could call Dr. Malloy at to discuss case to see if they would reconsider the time frame. However, she states that he would need to be stabilized prior to even being considered. Will update Dr. Bennett. (Natalia Anderson) Physician Comments seen, examined agree with above we will discuss with [place] again in am overall very poor prognosis -we will try to obtain records from [place] if possible (Dai Bennett MD) Natalia Anderson Aug 09, 2017 09:28 Dai Bennett MD Aug 09, 2017 19:11
--- NOTE | 2017-08-09 10:35 | RADRPT ---
EXAM DATE/TIME: 08/09/2017 10:02 [place] COMPARISON: ABDOMEN KUB ONLY, August 08, 2017, 15:11. CHEST SINGLE AP, August 09, 2017, 4:35. INDICATIONS : Colonic ileus, worsening distention MEDICAL HISTORY : Hypertension. Cirrhosis. anemia, esophageal varices SURGICAL HISTORY : chest tube ENCOUNTER: Initial ACUITY: 4 - 6 days PAIN SCORE: Non-responsive. LOCATION: Bilateral abdomen FINDINGS: The examination demonstrates diffuse gaseous distention of the colon. The cecum measures 10.9 cm in t ransverse dimension. There is a small amount of stool seen within the rectum. The exam is compared to previous study dated 08/08/17. The cecum measured 11.8 cm at that time. There is more gas within the descending and sigmoid colon on today's study. There is an NG tube within the stomach. There is consolidation and effusion at the right lung base. CONCLUSION: Diffuse gaseous distention of colon improved when compared to previous. Saurav Nicholson MD on August 09, 2017 at 10:30 Board Certified Radiologist. This report was verified electronically.
[2017-08-09] MEDS: PROPOFOL 1000 MG/100 ML INJ 100 ML IV PRN ×2 (10:45→17:39)
[2017-08-09] MEDS: cefTRIAXone INJ 2,000 MG in SODIUM CHLORIDE 0.9% INJ 100 ML IV SCH (10:50)
--- NOTE | 2017-08-09 11:24 | PD.ONC.PN ---
Subjective Subjective Remarks Patient remains intubated Per RN has not been following commands once the sedation turned off The patient was apneic during CPAP trials this morning Objective Data Date Time Temp Pulse Resp B/P (MAP) Pulse Ox O2 Delivery O2 Flow Rate FiO2 08/09/17 10:39 91 30 08/09/17 10:30 95.8 65 14 136/76 98 08/09/17 10:11 96.0 52 14 142/68 98 08/09/17 08:00 97.8 57 14 128/63 (84) 98 08/09/17 08:00 30 08/09/17 08:00 53 08/09/17 07:29 99 30 08/09/17 06:00 60 08/09/17 04:10 99 30 08/09/17 04:00 97.6 66 14 127/61 (83) 97 08/09/17 04:00 66 08/09/17 04:00 30 08/09/17 02:00 65 08/09/17 01:49 98 30 08/09/17 00:00 66 08/09/17 00:00 97.8 66 14 136/64 (88) 98 08/09/17 00:00 30 08/08/17 22:00 72 08/08/17 21:13 99 30 08/08/17 20:00 30 08/08/17 20:00 98.8 87 15 104/59 (74) 99 08/08/17 20:00 87 08/08/17 18:00 79 08/08/17 17:54 100 30 08/08/17 16:00 82 08/08/17 16:00 99.3 82 14 124/61 (82) 100 08/08/17 16:00 30 08/08/17 14:00 104 08/08/17 12:00 30 08/08/17 12:00 99.4 99 14 124/61 (82) 99 08/08/17 12:00 99 08/09/17 08/09/17 08/09/17 07:00 15:00 23:00 Intake Total 850 ml Output Total 675 ml Balance 175 ml Result Diagram: 08/09/1714 08/09/1714 Laboratory Results Laboratory Tests Test 08/09/17 04:39 08/09/17 07:14 Blood Gas Puncture Site LT RADIAL Blood Gas Patient Temperature 98.6 Blood Gas HCO3 24 mmol/L Blood Gas Base Excess 0.5 mmol/L Blood Gas Oxygen Saturation 95 % Arterial Blood pH 7.45 Arterial Blood Partial Pressure CO2 35 mmHg Arterial Blood Partial Pressure O2 93 mmHg Arterial Blood Oxygen Content 13.6 Vol % Arterial Blood Carboxyhemoglobin 2.1 % Arterial Blood Methemoglobin 1.1 % Blood Gas Hemoglobin 10.1 G/DL Oxygen Delivery Device VENT Blood Gas Ventilator Setting SEE COMMENTS Blood Gas Inspired Oxygen 30 % White Blood Count 1.7 TH/MM3 Red Blood Count 2.76 MIL/MM3 Hemoglobin 9.3 GM/DL Hematocrit 26.3 % Mean Corpuscular Volume 95.4 FL Mean Corpuscular Hemoglobin 33.7 PG Mean Corpuscular Hemoglobin Concent 35.3 % Red Cell Distribution Width 17.3 % Platelet Count 25 TH/MM3 Mean Platelet Volume 7.7 FL Neutrophils (%) (Auto) 70.0 % Lymphocytes (%) (Auto) 8.7 % Monocytes (%) (Auto) 15.2 % Eosinophils (%) (Auto) 5.5 % Basophils (%) (Auto) 0.6 % Neutrophils # (Auto) 1.2 TH/MM3 Lymphocytes # (Auto) 0.1 TH/MM3 Monocytes # (Auto) 0.3 TH/MM3 Eosinophils # (Auto) 0.1 TH/MM3 Basophils # (Auto) 0.0 TH/MM3 CBC Comment AUTO DIFF Differential Total Cells Counted 100 Neutrophils % (Manual) 65 % Band Neutrophils % 8 % Lymphocytes % 12 % Monocytes % 9 % Eosinophils % 5 % Neutrophils # (Manual) 1.3 TH/MM3 Metamyelocytes 1 % Differential Comment FINAL DIFF MANUAL Platelet Estimate LOW Platelet Morphology Comment NORMAL Ovalocytes 1+ Prothrombin Time 19.2 SEC Prothromb Time International Ratio 1.7 RATIO Activated Partial Thromboplast Time 38.8 SEC Fibrinogen 289 mg/dL Blood Urea Nitrogen 19 MG/DL Creatinine 0.49 MG/DL Random Glucose 149 MG/DL Calcium Level 7.7 MG/DL Phosphorus Level 2.4 MG/DL Magnesium Level 1.8 MG/DL Sodium Level 141 MEQ/L Potassium Level 4.2 MEQ/L Chloride Level 108 MEQ/L Carbon Dioxide Level 25.7 MEQ/L Anion Gap 7 MEQ/L Estimat Glomerular Filtration Rate 173 ML/MIN Imaging Studies Last 24 hours Impressions Chest X-Ray 08/09/17 0600 Signed Impressions: Service Date/Time: Wednesday, August 09, 2017 04:35 - CONCLUSION: 1. Endotracheal tube and nasogastric tube in satisfactory position. Moderate right effusion. Findings similar to August 07. Toño Glez MD Abdomen X-Ray 08/09/17 0000 Signed Impressions: Service Date/Time: Wednesday, August 09, 2017 10:02 - CONCLUSION: Diffuse gaseous distention of colon improved when compared to previous. Saurav Nicholson MD Administered Medications Medications (Trade) Dose Ordered Sig/Armida Route PRN Reason Start Time Stop Time Status Last Admin Dose Admin Sodium Chloride (NS Flush) 2 ml BID IV FLUSH 08/04/17 09:00 08/09/17 08:31 Ondansetron HCl (Zofran Inj) 4 mg Q6H PRN IV PUSH NAUSEA OR VOMITING 08/04/17 08:45 08/04/17 11:16 Miscellaneous Information 1 [id number] XX 08/04/17 08:45 08/04/17 08:45 Chlorhexidine Gluconate (Chlorhexidine 2% Cloth) 3 pack Taper DAILY@04 TOP 08/05/17 04:00 08/01/18 03:59 08/09/17 03:16 Senna/Docusate Sodium (Dorina-Colace) 1 tab BID PO 08/04/17 09:00 08/09/17 08:31 Ceftriaxone Sodium 2000 mg/ Sodium Chloride 100 ml @ 200 mls/hr Q24H IV 08/04/17 11:00 08/09/17 10:50 Pantoprazole Sodium 80 mg/ Sodium Chloride 100 ml @ 10 mls/hr CONTINUOUS IV 08/04/17 11:00 08/09/17 04:18 Chlorhexidine Gluconate (Peridex 0.12% Liq) 15 ml BID@08,20 MT 08/04/17 20:00 08/09/17 08:32 Propofol 100 ml @ 2.1 mls/hr TITRATE PRN IV SEDATION 08/04/17 12:15 08/09/17 10:45 Artificial Tears (Tears Naturale Opth Soln) 1 drop Q8H EACH EYE 08/04/17 16:00 08/09/17 08:00 Fentanyl Citrate 250 ml @ 5 mls/hr TITRATE PRN IV SEDATION 08/04/17 15:00 08/08/17 13:55 Octreotide Acetate 500 mcg/ Sodium Chloride 500 ml @ 50 mls/hr Q10H IV 08/04/17 19:00 08/09/17 08:31 Rifaximin (Xifaxan) 550 mg BID PO 08/06/17 21:00 08/09/17 08:31 Lactulose (Lactulose Liq) 30 ml QID PO 08/06/17 18:00 08/09/17 08:31 Spironolactone (Aldactone) 25 mg BID@09,18 PO 08/06/17 18:00 08/09/17 08:31 Multivitamins 10 ml/Folic Acid 1 mg/Amino Acids/ Electrolytes/ Dextrose 2,010.2 ml @ 84 mls/hr [id number] IV 08/06/17 20:00 08/08/17 19:41 Magnesium Oxide (Mag-Ox) 800 mg UNSCH PRN PO For Magnesium 1.2 - 1.6 mg/dL 08/07/17 04:45 08/08/17 08:06 Potassium Phosphate (K-Phos) 2,000 mg Q4H PRN PO For Phosphorus < 2.5 mg/dL 08/07/17 04:45 08/08/17 13:54 Dexmedetomidine HCl 1000 mcg/ Sodium Chloride 250 ml @ 3.92 mls/hr TITRATE PRN IV SEDATION 08/08/17 20:15 08/09/17 06:37 Objective Remarks GENERAL: Older male, sedated and intubated SKIN: Warm and dry. HEAD: Normocephalic. EYES: No injection or drainage. NECK: Supple, trachea midline. CARDIOVASCULAR: Regular rate and rhythm without murmurs. RESPIRATORY: Clear anteriorly. Mechanically ventilated. GASTROINTESTINAL: Abdomen distended EXTREMITIES: No cyanosis, or edema. MUSCULOSKELETAL: Adequate muscle tone. NEUROLOGICAL: Sedated. Per RN he does not follow commands when sedation turned off. Assessment/Plan Problem List: (1) Esophageal varices with hemorrhage ICD Codes: I85.01 - Esophageal varices with bleeding Status: Acute Plan: -- History of alcoholic-induced liver cirrhosis -- Most recently he underwent upper endoscopy and was found to have bleeding from esophageal varices. The GI physician was unable to band. -- On Protonix and Sandostatin gtt (2) Pancytopenia ICD Codes: D61.818 - Other pancytopenia Status: Acute Plan: -- Due to hypersplenism -- Supportive care --transfuse as needed. Assessment 61 y/o male admitted for GI bleeding Plan 1. Pt not following commands; his platelet count is in the 20k range and his INR is elevating. 2. We will get CT brain to r/o bleed. 3. Will transfuse 2 units FFP and 1 unit platelets today. 4. GI following. Attending Statement The exam, history, and the medical decision-making described in the above note were completed with the assistance of the mid-level provider. I reviewed and agree with the findings presented. I attest that I had a [id number] encounter with the patient on the same day, and personally performed and documented my assessment and findings in the medical record. Patient remains intubated. According to nursing staff patient was apneic during CPAP trial Abdomen is distended. No active bleed noted. Hgb stable. Platelet trended lower and INR trended up higher. Transfuse platelet and FFP today. Get CT of head to r/o bleed. Vera Corona Aug 09, 2017 11:24 Silvestre Hernandez MD Aug 09, 2017 15:03
--- NOTE | 2017-08-09 15:47 | HHI.CCPN ---
Subjective Remarks/Hospital Course This is a 61-year-old male with history of alcoholic liver disease with esophageal varices, who presents today with complaints of 3 episodes of vomiting black coffee-ground emesis in the ED. The patient has had multiple admissions for the same diagnosis, last admission 04/2017. The patient currently has had an assessment at [facility] for liver transplantation his previous MELD score was 21. The patient is scheduled to return to [facility] at the end of the year for evaluation for liver transplantation. The patient reports that last night at 11 PM he started experiencing some discomfort in his abdomen. He states he drank some water and then shortly thereafter vomited coffee-ground emesis. He states he had 3 further episodes with the last one having some maroon-colored blood. He presented to the ED at 5 AM He denies any shortness of breath. He denied any melanotic stools. Gastroenterology was consulted, Dr. Richards for evaluation. Critical care medicine was consulted for management. Upon my initial evaluation the patient was noted to be sinus tachycardia 110-118 heart rate, in no respiratory distress, with mild complaints of nausea recently being administered Compazine IV with resolved bleeding symptoms. The patient subsequently had another episode of hematemesis with approximately 400 cc of bright red blood. Patient scheduled to received 1 unit of FFP 2 units of platelets and will undergo EGD this a.m.. 08/05: Afebrile. Sinus rhythm. No acute events overnight. Serial H&H's appears stable, currently monitored every 6 hours. OGT minimal bilious gastric output, no heme noted. No melanotic stools. The patient was noted to be slightly hypernatremic with a sodium level 147, IV fluids changed to 1/2 normal saline. Urine output was noted to be marginal in the last 12 hours patient currently being bolused with 500 cc we'll monitor urine output. Patient remains a rest of -2 on sedation, currently nodding yes and no questions understands status post EGD patient remains intubated secondary to gastric varices, with concern for continued bleeding at the time per GI. Patient denies pain. 08/06: Afebrile. Quite agitated and not following commands on sedation vacation. Propofol and fentanyl drips resume. No bleeding noted. Hemoglobin appears stable 08/07: Afebrile. Failed sedation vacation yesterday. A.m. ammonia level pending. Currently on lactulose and Xifaxan. Chest x-ray revealed right loculated pleural effusion 08/08: Attempts at CPAP trials yesterday lasted only 5-10 minutes secondary to agitation. Patient to be placed on Precedex infusion propofol and fentanyl to be discontinued. Chest x-ray was noted to have a moderate size right pleural effusion however INR is currently 1.5 with a platelet count of 32. Plan for CPAP trials on Precedex only, confer with hematology regarding transfusion of platelets for possible thoracentesis by IR for loculated right moderate-sized pleural effusion. Subjective: 08/09: still apneic. agitated but no improvement in mental status. going for CT head today. pleural effusion persists and will obtain ct chest today to evaluate for loculations. per GI, will obtain ct abd/pelvis due to worsening abdominal distension. leukopenia worse today, INR still elevated. still coagulopathic and thrombocytopenic. MELD persistently 17 this AM. Objective Vital Signs Date Time Temp Pulse Resp B/P (MAP) Pulse Ox O2 Delivery O2 Flow Rate FiO2 08/09/17 14:00 50 14 142/74 98 08/09/17 13:49 95.6 08/09/17 13:19 30 Intake and Output 08/09/17 08/09/17 08/10/17 08:00 16:00 00:00 Intake Total 850 ml 1019 ml Output Total 675 ml Balance 175 ml 1019 ml Result Diagram: 08/09/17 0714 08/09/17 0714 Other Results Laboratory Tests Test 08/09/17 04:39 Blood Gas Puncture Site LT RADIAL Blood Gas Patient Temperature 98.6 Blood Gas HCO3 24 mmol/L (22-26) Blood Gas Base Excess 0.5 mmol/L (-2-2) Blood Gas Oxygen Saturation 95 % (90-100) Arterial Blood pH 7.45 (7.380-7.420) Arterial Blood Partial Pressure CO2 35 mmHg (38-42) Arterial Blood Partial Pressure O2 93 mmHg (61-120) Arterial Blood Oxygen Content 13.6 Vol % (12.0-20.0) Arterial Blood Carboxyhemoglobin 2.1 % (0-4) Arterial Blood Methemoglobin 1.1 % (0-2) Blood Gas Hemoglobin 10.1 G/DL (12.0-16.0) Oxygen Delivery Device VENT Blood Gas Ventilator Setting SEE COMMENTS Blood Gas Inspired Oxygen 30 % Imaging Last Impressions Chest X-Ray 08/07/17 0600 Signed Impressions: Service Date/Time: Monday, August 07, 2017 03:31 - CONCLUSION: 1. Moderate size partially loculated right pleural effusion slightly increased from August 06. Basilar airspace disease. Endotracheal tube and nasogastric tube unchanged. Toño Glez MD Objective Remarks GENERAL: 61-year-old male, critically ill currently orotracheally intubated and sedated SKIN: Warm and dry. quite icteric on eval. HEAD: Atraumatic. Normocephalic. EYES: Pupils equal and round. No scleral icterus. No injection or drainage. ENT: No nasal bleeding or discharge. Mucous membranes pink and moist. OGT noted to LIWS minimal greenish bilious type secretions NECK: Trachea midline. No JVD. Orally intubated CARDIOVASCULAR: RRR. RESPIRATORY: Mechanical ventilation Diminished breath sounds right lower lobe. No wheezing GASTROINTESTINAL: Abdomen soft, non-tender, quite distended. Hypoactive bowel sounds MUSCULOSKELETAL: Extremities with trace lower extremity edema NEUROLOGICAL:positive gag, corneal reflex. Moves all 4 extremity spontaneously but not to command. Previously patient alert and oriented following commands prior to intubation and postintubation. Currently on propofol and fentanyl infusions. A/P Assessment and Plan Assessment: 61yM ESLD working up for transplant, now with bleeding esophageal varices, hepatic encephalopathy, acute hypoxic respiratory failure, worsening end-organ function. Remains very critically ill. will f/u head, chest, abd/ pelvis CT. may need chest tube, but this would be high risk given coagulopathy. given that transplant work-up is not complete, and he is becoming too critically ill for that as an option, his prognosis is quite poor. May need to consider palliative care consult in the near future. For now our goals are aggressive and his multiple acute medical problems are persistently life- threatening today. NEURO/Psych: Acute toxic metabolic encephalopathy secondary to elevated ammonia Hepatic Encephalopathy Currently on propofol/fentanyl drip Goal of RASS -2 Daily sedation vacation See GI for elevated ammonia workup Respiratory: Acute hypoxemic respiratory failure Loculated right pleural effusion ACV 14/500/5/30 Ventilator bundle Patient remains intubated secondary to high risk for aspiration secondary to gastric varices per GI recommendations Maintain head of bed at least 30, patient high risk for aspiration Bronchodilators with albuterol/ipratropium aerosols every 4 hours when necessary 08/08/chest [id number] moderate right pleural effusion-plan for possible IR consultation after correction of coagulation parameters for possible thoracentesis failing cpap trials for apnea f/u CT chest today Cardiovascular: Sinus tachycardia most likely secondary to acute blood loss-resolved Maintain MAP greater than 65 mmHg spironolactone 25 mg twice a day, 08/07 Bumex 1 dose Renal: Hypovolemia secondary to acute blood loss-resolved Oliguria currently resolved Mcdonald catheter Monitor urine output Accurate I's and O's Creatinine currently within normal limits. 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 Esophageal varices grade 1-2 no evidence of bleeding Currently on pantoprazole drip at 8 mg an hour Continue Sandostatin drip at 50 mg an hour GI following- Dr. Richards 08/08-UB for gastric distention follow-up results The patient is being followed by [facility] for transplant initial assessment was performed 02/10 with MELD score 21. 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 Brewster following Rocephin 2 GM q 24h for upper GI bleed Endocrine: Hyperglycemia of critical illness Glucose monitoring per ICU protocol -- SSI FEN: Hypocalcemia Hypo-magnesium Hypophosphatemia ICU electrolyte protocol initiated. A.m. laboratories all pending TPN Prophylaxis: GI Prophylaxis Pantoprazole/Sandostatin DVT Prophylaxis -- SCDs No pharmacological prophylaxis in the setting of bleeding Lines: Peripheral IVs adequate access at this time Critical care time: 44 minutes, exclusive of separately billable procedures. Todd Gonzalez MD Aug 09, 2017 15:47
--- NOTE | 2017-08-09 16:06 | RADRPT ---
EXAM DATE/TIME: 08/09/2017 15:36 [facility] COMPARISON: CT THORAX W/O CONTRAST, May 27, 2017, 15:22. CT THORAX W/O CONTRAST, August 07, 2017, 10:12. INDICATIONS : Short of breath, pleural effusion. RADIATION DOSE: 5.20 CTDIvol (mGy) ; Combined studies - Thorax/Abdomen/Pelvis MEDICAL HISTORY : Hypertension. Cirrhosis. Anemia. SURGICAL HISTORY : None. ENCOUNTER: Initial ACUITY: 1 day PAIN SCALE: Non-responsive LOCATION: Bilateral chest TECHNIQUE: Volumetric scanning of the chest was performed. Using automated exposure control and adjustment of t he mA and/or kV according to patient size, radiation dose was kept as low as reasonably achievable to obtain optimal diagnostic quality images. DICOM format image data is available electronically for r eview and comparison. Follow-up recommendations for detected pulmonary nodules are based at a minimum on nodule size and pa tient risk factors according to Fleischner Society Guidelines. FINDINGS: LUNGS: There are bilateral pleural effusions larger on the right than the left with consolidative changes in both lungs worse on the right than the left. The effusion on the right is large occupying most of t he right hemithorax Effusion left is small MEDIASTINUM: There is mild cardiomegaly without pericardial effusion. AXILLAE: Within normal limits. No lymphadenopathy. MUSCULOSKELETAL: Mild degenerative changes. MISCELLANEOUS: Please see the CT scan of the abdomen and pelvis report. Moderate splenomegaly with small liver. CONCLUSION: Large pleural effusion on the right with compressive atelectatic changes right lung Small pleural effusion on the left. Small liver masses or megaly. Hamlet Nicholson MD FACR on August 09, 2017 at 16:01 Board Certified Radiologist. This report was verified electronically.
--- NOTE | 2017-08-09 16:09 | RADRPT ---
EXAM DATE/TIME: 08/09/2017 15:38 [facility] COMPARISON: No previous studies available for comparison. INDICATIONS : Abdomen pain, colon distenstion. ORAL CONTRAST: No oral contrast ingested. RADIATION DOSE: 5.20 CTDIvol (mGy) ; Combined studies - Thorax/Abdomen/Pelvis MEDICAL HISTORY : Hypertension. Cirrhosis. Anemia. SURGICAL HISTORY : None. ENCOUNTER: Initial ACUITY: 1 day PAIN SCALE: Non-responsive LOCATION: Bilateral upper quadrant TECHNIQUE: Volumetric scanning of the abdomen and pelvis was performed. Using automated exposure control and ad justment of the mA and/or kV according to patient size, radiation dose was kept as low as reasonably achievable to obtain optimal diagnostic quality images. DICOM format image data is available electro nically for review and comparison. FINDINGS: Again seen are the bilateral pleural effusions much worse in the right than left. The liver is small with prominent spleen and moderate ascites. Minimal varicosities are evident. r-fluid levels are seen in both large and small bowel, more large bowel is small suggesting ileus. There is no free air The right kidney is unremarkable The left kidney is small the cystic mass upper pole containing calcifications measuring 3.1 cm, Bosni ak 3. Pelvis stool is seen in the sigmoid Bladder is decompressed by Mcdonald Generalized anasarca Degenerative changes lumbar spine. CONCLUSION: Small liver and prominent spleen or varicosities. Trace ascites. All consistent with hepatocellular disease. Bosniak 3 cyst left kidney Large right pleural effusion. Hamlet Nicholson MD FACR on August 09, 2017 at 16:05 Board Certified Radiologist. This report was verified electronically.
--- NOTE | 2017-08-09 16:09 | RADRPT ---
EXAM DATE/TIME: 08/09/2017 15:31 [facility] COMPARISON: CT THORAX W/O CONTRAST, August 07, 2017, 10:12. INDICATIONS : Altered mental status with thrombocytopenia. RADIATION DOSE: 56.35 CTDIvol (mGy) MEDICAL HISTORY : Hypertension. Cirrhosis. Anemia. SURGICAL HISTORY : None. ENCOUNTER: Initial ACUITY: 1 day PAIN SCALE: Non-responsive LOCATION: Bilateral cranial TECHNIQUE: Multiple contiguous axial images were obtained of the head. Using automated exposure control and adj ustment of the mA and/or kV according to patient size, radiation dose was kept as low as reasonably a chievable to obtain optimal diagnostic quality images. DICOM format image data is available electro nically for review and comparison. FINDINGS: CEREBRUM: The ventricles are normal for age. No evidence of midline shift, mass lesion, hemorrhage or acute in farction. No extra-axial fluid collections are seen. POSTERIOR FOSSA: The cerebellum and brainstem are intact. The 4th ventricle is midline. The cerebellopontine angle i s unremarkable. EXTRACRANIAL: The visualized portion of the orbits is intact. SKULL: The calvaria is intact. No evidence of skull fracture. CONCLUSION: 1. No acute intracranial abnormality. Saurav Nicholson MD on August 09, 2017 at 16:03 Board Certified Radiologist. This report was verified electronically.
[2017-08-09] MEDS ORDERED: ATROPINE SULFATE 1 MG/10 ML SYRINGE ONE (16:25)
[2017-08-09] MEDS: CLINIMIX E 4.25/5 2000 mL- >42 mls/hr IV SCH ×3 (20:11)
[2017-08-09 21:26] LABS: APTT (PATIENT) 35.6 SEC (24.3-30.1); INTERNATIONAL NORMALIZED RATIO 1.5 RATIO; PROTHROMBIN TIME - PATIENT 16.6 SEC (9.8-11.6)
[2017-08-10] VITALS (18 sets, daily range): BP systolic 78–158; BP diastolic 46–73; PULSE 62–80; RESP 14–17; TEMP 98.2–98.6; O2SAT 99–100
[2017-08-10] MEDS: DEXMEDETOMIDINE INJ 1,000 MCG in SODIUM CHLOR 0.9% 250 ML INJ 240 ML IV PRN ×3 (02:29→18:35)
[2017-08-10] MEDS: CHLORHEXIDINE GLUCONATE 2 % 1 PACK (2 CLOTHS) TOP SCH (04:00)
[2017-08-10 04:14] LABS: AUTOMATED NEUTROPHIL # 0.8 TH/MM3 (1.8-7.7); BASOPHIL % 0.6 % (0.0-2.0); EOSINOPHIL # 0.1 TH/MM3 (0-0.4); LYMPH % 11.8 % (9.0-44.0); LYMPHOCYTE # 0.2 TH/MM3 (1.0-4.8); MEAN CELL VOLUME 95.9 FL (80.0-100.0); MEAN CORPUSCULAR HEMOGLOBIN 33.6 PG (27.0-34.0); MONO % 22.7 % (0.0-8.0); NEUT % 60.9 % (16.0-70.0); PLATELET COUNT 46 TH/MM3 (150-450); RED BLOOD COUNT 2.61 MIL/MM3 (4.50-5.90); RED CELL DISTRIBUTION WIDTH 17.3 % (11.6-17.2); WHITE BLOOD COUNT 1.3 TH/MM3 (4.0-11.0)
[2017-08-10 04:24] LABS: HEMO FLAGS AUTO DIFF
[2017-08-10 04:31] LABS: APTT (PATIENT) 34.4 SEC (24.3-30.1); INTERNATIONAL NORMALIZED RATIO 1.4 RATIO; PROTHROMBIN TIME - PATIENT 15.7 SEC (9.8-11.6)
[2017-08-10 04:56] LABS: BICARBONATE 26.3 MEQ/L (21.0-32.0); POTASSIUM 4.2 MEQ/L (3.5-5.1)
[2017-08-10 04:59] LABS: BANDS 15 % (0-6); EOSINOPHILS 5 % (0-4); MYELOCYTES 2 % (0-0); NEUTROPHIL # MANUAL DIFF 0.7 TH/MM3 (1.8-7.7); POLYS (SEG NEUTROPHILS) 34 % (16-70); PROMYELOCYTES 2 % (0-0); TOTAL BILIRUBIN ADULT 3.6 MG/DL (0.2-1.0); WBC DIFF SAMPLE 100
[2017-08-10 05:00] LABS: OVALOCYTES 1+ (NORMAL); PLATELET ESTIMATE SMEAR RARE (NORMAL); PLATELET MORPHOLOGY NORMAL (NORMAL); SCAN/DIFF FINAL DIFF MANUAL; TEARDROP RBCS 1+ (NORMAL)
[2017-08-10] MEDS: OCTREOTIDE 500 MCG/NS 500 ML - 50 mcg/hr IV SCH ×4 (05:21→15:32)
[2017-08-10] MEDS: PANTOPRAZOLE INJ 80 MG in SODIUM CHLORIDE 0.9% INJ 100 ML IV SCH (07:14)
[2017-08-10] MEDS ORDERED: FILGRASTIM 480 MCG/1.6 ML VIAL SQ ONE (08:45)
[2017-08-10] MEDS: CHLORHEXIDINE 0.12% (ORAL KIT) 15 ML CUP MT SCH ×2 (09:09→20:13)
[2017-08-10] MEDS: ARTIFICIAL TEARS OPTH SOLN 15 ML BTL EACH EYE SCH ×2 (09:09→18:35)
[2017-08-10] MEDS: SPIRONOLACTONE 25 MG TAB PO SCH ×2 (09:10→18:00)
[2017-08-10] MEDS: LACTULOSE SYRUP 20 GM/30 ML CUP PO SCH ×4 (09:10→20:13)
[2017-08-10] MEDS: SODIUM CHLORIDE 0.9% FLUSH 10 ML FLUSH IV FLUSH SCH ×2 (09:10→20:14)
[2017-08-10] MEDS: DOCUSATE SODIUM 50 MG/SENNA 8.6 MG TAB PO SCH ×2 (09:10→20:13)
[2017-08-10] MEDS: RIFAXIMIN 550 MG TAB PO SCH ×2 (09:10→20:13)
--- NOTE | 2017-08-10 11:10 | HHI.GIFU ---
Subjective Remarks Pt resting in bed in no distress. On precedex, lethargic, but is starting to arouse- not following commands yet. No active gi bleeding. Abdomen less distended- multiple loose stools. (Natalia Anderson) Objective Vitals I&O Vital Signs Date Time Temp Pulse Resp B/P (MAP) Pulse Ox O2 Delivery O2 Flow Rate FiO2 08/10/17 10:00 69 08/10/17 08:00 98.6 73 14 152/70 (97) 100 08/10/17 08:00 73 08/10/17 08:00 60 08/10/17 07:45 100 30 08/10/17 06:00 68 08/10/17 04:15 100 30 08/10/17 04:00 30 08/10/17 04:00 71 08/10/17 04:00 98.6 71 14 118/57 (77) 99 08/10/17 02:00 70 08/10/17 00:20 100 30 08/10/17 00:00 30 08/10/17 00:00 96.1 63 14 78/46 (57) 100 08/10/17 00:00 63 08/09/17 22:00 65 08/09/17 20:31 100 30 08/09/17 20:00 93.2 52 14 98/56 (70) 99 08/09/17 20:00 52 08/09/17 20:00 30 08/09/17 18:00 44 08/09/17 17:55 99 30 08/09/17 16:00 30 08/09/17 16:00 53 08/09/17 16:00 95.8 55 14 123/66 (85) 96 08/09/17 15:29 97 08/09/17 14:00 50 14 142/74 98 08/09/17 14:00 53 08/09/17 13:49 95.6 51 14 138/71 97 08/09/17 13:19 96 30 08/09/17 12:12 95.7 51 14 130/75 97 08/09/17 12:00 95.6 51 14 128/73 (91) 97 08/09/17 12:00 51 08/09/17 12:00 30 08/09/17 11:56 95.8 51 14 128/73 97 I/O 08/09/17 08/09/17 08/09/17 08/10/17 08/10/17 08/10/17 07:00 15:00 23:00 07:00 15:00 23:00 Intake Total 850 ml 1119 ml 2700 ml 500 ml 100 ml Output Total 675 ml 1200 ml 1250 ml Balance 175 ml 1119 ml 1500 ml -750 ml 100 ml Intake IV Total 850 ml 100 ml 2700 ml 500 ml 100 ml FFP 448 ml Platelets 571 ml Output Urine Total 675 ml 500 ml 1250 ml Gastric Drainage Total 700 ml # Bowel Movements 1 1 1 Laboratory Laboratory Tests Test 08/09/17 19:50 08/10/17 03:27 Prothrombin Time 16.6 15.7 Prothromb Time International Ratio 1.5 1.4 Activated Partial Thromboplast Time 35.6 34.4 White Blood Count 1.3 Red Blood Count 2.61 Hemoglobin 8.8 Hematocrit 25.0 Mean Corpuscular Volume 95.9 Mean Corpuscular Hemoglobin 33.6 Mean Corpuscular Hemoglobin Concent 35.0 Red Cell Distribution Width 17.3 Platelet Count 46 Mean Platelet Volume 8.9 Neutrophils (%) (Auto) 60.9 Lymphocytes (%) (Auto) 11.8 Monocytes (%) (Auto) 22.7 Eosinophils (%) (Auto) 4.0 Basophils (%) (Auto) 0.6 Neutrophils # (Auto) 0.8 Lymphocytes # (Auto) 0.2 Monocytes # (Auto) 0.3 Eosinophils # (Auto) 0.1 Basophils # (Auto) 0.0 CBC Comment AUTO DIFF Differential Total Cells Counted 100 Neutrophils % (Manual) 34 Band Neutrophils % 15 Lymphocytes % 19 Monocytes % 23 Eosinophils % 5 Neutrophils # (Manual) 0.7 Myelocytes 2 Promyelocytes 2 Differential Comment FINAL DIFF MANUAL Platelet Estimate RARE Platelet Morphology Comment NORMAL Tear Drop Cells 1+ Ovalocytes 1+ Blood Urea Nitrogen 21 Creatinine 0.48 Random Glucose 101 Total Protein 5.6 Albumin 2.3 Calcium Level 8.4 Alkaline Phosphatase 71 Aspartate Amino Transf (AST/SGOT) 33 Alanine Aminotransferase (ALT/SGPT) 22 Total Bilirubin 3.6 Direct Bilirubin 1.6 Sodium Level 142 Potassium Level 4.2 Chloride Level 110 Carbon Dioxide Level 26.3 Anion Gap 6 Estimat Glomerular Filtration Rate 177 Indirect Bilirubin 2.0 Imaging Last Impressions Chest X-Ray 08/09/17 0600 Signed Impressions: Service Date/Time: Wednesday, August 09, 2017 04:35 - CONCLUSION: 1. Endotracheal tube and nasogastric tube in satisfactory position. Moderate right effusion. Findings similar to August 07. Toño Glez MD Head CT 08/09/17 0000 Signed Impressions: Service Date/Time: Wednesday, August 09, 2017 15:31 - CONCLUSION: 1. No acute intracranial abnormality. Saurav Nicholson MD Chest CT 08/09/17 0000 Signed Impressions: Service Date/Time: Wednesday, August 09, 2017 15:36 - CONCLUSION: Large pleural effusion on the right with compressive atelectatic changes right lung Small pleural effusion on the left. Small liver masses or megaly. Hamlet Nicholson MD FACR Abdomen/Pelvis CT 08/09/17 0000 Signed Impressions: Service Date/Time: Wednesday, August 09, 2017 15:38 - CONCLUSION: Small liver and prominent spleen or varicosities. Trace ascites. All consistent with hepatocellular disease. Bosniak 3 cyst left kidney Large right pleural effusion. Hamlet Nicholson MD FACR Abdomen X-Ray 08/09/17 0000 Signed Impressions: Service Date/Time: Wednesday, August 09, 2017 10:02 - CONCLUSION: Diffuse gaseous distention of colon improved when compared to previous. Saurav Nicholson MD Physical Exam HEENT: Normocephalic; atraumatic; no jaundice. CHEST: Resp even/unlabored, on vent. CARDIAC: ST, mild ABDOMEN: Soft, mildly distended (improved from yesterday), hepatosplenomegaly; bowel sounds are present in all four quadrants. OGT with bilious colored material. Rectal tube with liquid brown stool SKIN: Generalized edema. OVERCOIL STEPPER: Sedated on vent. (Natalia Anderson) Assessment and Plan Plan ASSESSMENT: - Recurrent upper GIB, hematemesis. Hospitalized in April of 2017 and was evaluated with S/P EGD (05/24/17)-----> Distal esophageal Barretts esophagus and grade 1-2 varices, Stomach: no blood. No ulcers. Mucosa does not appear edematous duodenum: normal. S/P Angiogram of the Celiac, Superior Mesenteric Artery (05/24/17)---> no hemorrhagic focus identified. S/P EGD with needle injection for bleeding (08/04/18), official report pending, according to emr note, gastric varices-bleeding unable to band, chance of rebeed, patient to remain intubated. Esophageal varices grade 1-2 no evidence of bleeding. OGT to LIWS with bilious material. No active gib at this time. Octreotide, Protonix gtt. HH 8.8/25.0 TPN. Octreotide, Protonix Gtt. Ceftriaxone - Colonic ileus. KUB (08/08/17)-----> Air filled mildly dilated loops of colon suggesting ileus or distal colonic obstruction. Clinical correlation is recommended. Right pleural effusion, degenerative changes throughout the thoracolumbar spine. CT Scan abdomen and pelvis with iv contrast (08/09/17)----> Small liver and prominent spleen or varicosities. Trace ascites. All consistent with hepatocellular disease, Bosniak 3 cyst left kidney, large right pleural effusion. Rectal tube in place- less distended. Multiple loose stools. Had 700cc output yesterday - will monitor today and if improved, then start trickle feeds. - Anemia, acute blood loss. HH 8.8/25.0. - Severe thrombocytopenia, coagulopathy. Plt 46,000, PT 15.7, INR 1.4. Hematology following, S/P 3 units FFP, 6 units, 1 unit cryoprecipitate. - Liver cirrhosis. Established at [facility], Caitlin Styles . Last seen in January. Spoke to Caitlin Styles (liver emergency medical service coordinator) on 08/09 re: hospitalization, condition, chances of evaluation for liver transplant. States that patient had apositive blood alcohol test in January of 2017 and that pts are usually banned for program with this, but that because patient adamantly denied using alcohol, the committee agreed to reconsider him if he did not have any further positive etoh labs x 1 year (with monthly random alcohol levels). Since that time, he has remained negative (6 months). She does not feel that the committee will even consider patient for transplant until he has completed 12 months without any positive random alcohol levels. She reports that she has suggested patient try [facility] or other tertiary centers that only require 6 month without ETOH. CM consulted, will try [facility] and [facility] for transfer for transplant evaluation. Of note, pt's MELD on admission was 7. However, he is requiring frequent hospitalizations for recurrent GIB and is now having recurrent pleural effusion. Since his diagnosis in March 2016, he has had 8 hospitalization and multiple EGD's for recurrent bleeding. Now with hepatic encephalopathy, so likely not a TIPS candidate. - Hepatic encephalopathy. Lactulose. Xifaxan. Ammonia 84 today. - GERD, Russell's Esophagus. Protonix. - Respiratory failure, right pleural effusion. Vent per [facility] PLAN: - NPO - OGT to LIWS- had 700cc yesterday, but seems to be less distended and has had multiple bms. If improved today, will clamp and see how he does to see if we can start trickle feeds. - Cont. Protonix gtt - Cont. Octreotide gtt - Cont. Xifaxan/Lactulose - Cont. Spironolactone - Cont. TPN - Monitor labs - Hematology following, transfusions per hematology - Supportive care - Palliative care consulted - CM consulted to assist with possible tx to tertiary for liver transplant evaluation- [facility] and [facility] - Further recommendations to follow based on results of above - Pt seen and examined by Dr. Bennett and myself and this note is written on her behalf (Natalia Anderson) Physician Comments agree with above (Dai Bennett MD) Natalia Anderson Aug 10, 2017 11:10 Dai Bennett MD Aug 10, 2017 16:41
[2017-08-10] MEDS: cefTRIAXone INJ 2,000 MG in SODIUM CHLORIDE 0.9% INJ 100 ML IV SCH (11:35)
--- NOTE | 2017-08-10 13:15 | PD.ONC.PN ---
Subjective Subjective Remarks Remains intubated Afebrile No bleeding Objective Data Date Time Temp Pulse Resp B/P (MAP) Pulse Ox O2 Delivery O2 Flow Rate FiO2 08/10/17 10:00 69 08/10/17 08:00 98.6 73 14 152/70 (97) 100 08/10/17 08:00 73 08/10/17 08:00 60 08/10/17 07:45 100 30 08/10/17 06:00 68 08/10/17 04:15 100 30 08/10/17 04:00 30 08/10/17 04:00 71 08/10/17 04:00 98.6 71 14 118/57 (77) 99 08/10/17 02:00 70 08/10/17 00:20 100 30 08/10/17 00:00 30 08/10/17 00:00 96.1 63 14 78/46 (57) 100 08/10/17 00:00 63 08/09/17 22:00 65 08/09/17 20:31 100 30 08/09/17 20:00 93.2 52 14 98/56 (70) 99 08/09/17 20:00 52 08/09/17 20:00 30 08/09/17 18:00 44 08/09/17 17:55 99 30 08/09/17 16:00 30 08/09/17 16:00 53 08/09/17 16:00 95.8 55 14 123/66 (85) 96 08/09/17 15:29 97 08/09/17 14:00 50 14 142/74 98 08/09/17 14:00 53 08/09/17 13:49 95.6 51 14 138/71 97 08/09/17 13:19 96 30 08/10/17 08/10/17 08/10/17 07:00 15:00 23:00 Intake Total 500 ml 100 ml Output Total 1250 ml Balance -750 ml 100 ml Result Diagram: 08/10/1732608/10/17326 Laboratory Results Laboratory Tests Test 08/09/17 19:50 08/10/17 03:27 08/10/17 12:23 Prothrombin Time 16.6 SEC 15.7 SEC Prothromb Time International Ratio 1.5 RATIO 1.4 RATIO Activated Partial Thromboplast Time 35.6 SEC 34.4 SEC White Blood Count 1.3 TH/MM3 Red Blood Count 2.61 MIL/MM3 Hemoglobin 8.8 GM/DL Hematocrit 25.0 % Mean Corpuscular Volume 95.9 FL Mean Corpuscular Hemoglobin 33.6 PG Mean Corpuscular Hemoglobin Concent 35.0 % Red Cell Distribution Width 17.3 % Platelet Count 46 TH/MM3 Mean Platelet Volume 8.9 FL Neutrophils (%) (Auto) 60.9 % Lymphocytes (%) (Auto) 11.8 % Monocytes (%) (Auto) 22.7 % Eosinophils (%) (Auto) 4.0 % Basophils (%) (Auto) 0.6 % Neutrophils # (Auto) 0.8 TH/MM3 Lymphocytes # (Auto) 0.2 TH/MM3 Monocytes # (Auto) 0.3 TH/MM3 Eosinophils # (Auto) 0.1 TH/MM3 Basophils # (Auto) 0.0 TH/MM3 CBC Comment AUTO DIFF Differential Total Cells Counted 100 Neutrophils % (Manual) 34 % Band Neutrophils % 15 % Lymphocytes % 19 % Monocytes % 23 % Eosinophils % 5 % Neutrophils # (Manual) 0.7 TH/MM3 Myelocytes 2 % Promyelocytes 2 % Differential Comment FINAL DIFF MANUAL Platelet Estimate RARE Platelet Morphology Comment NORMAL Tear Drop Cells 1+ Ovalocytes 1+ Blood Urea Nitrogen 21 MG/DL Creatinine 0.48 MG/DL Random Glucose 101 MG/DL Total Protein 5.6 GM/DL Albumin 2.3 GM/DL Calcium Level 8.4 MG/DL Alkaline Phosphatase 71 U/L Aspartate Amino Transf (AST/SGOT) 33 U/L Alanine Aminotransferase (ALT/SGPT) 22 U/L Total Bilirubin 3.6 MG/DL Direct Bilirubin 1.6 MG/DL Sodium Level 142 MEQ/L Potassium Level 4.2 MEQ/L Chloride Level 110 MEQ/L Carbon Dioxide Level 26.3 MEQ/L Anion Gap 6 MEQ/L Estimat Glomerular Filtration Rate 177 ML/MIN Indirect Bilirubin 2.0 MG/DL Ammonia 50 MCMOL/L Administered Medications Medications (Trade) Dose Ordered Sig/Armida Route PRN Reason Start Time Stop Time Status Last Admin Dose Admin Sodium Chloride (NS Flush) 2 ml BID IV FLUSH 08/04/17 09:00 08/10/17 09:10 Ondansetron HCl (Zofran Inj) 4 mg Q6H PRN IV PUSH NAUSEA OR VOMITING 08/04/17 08:45 08/04/17 11:16 Miscellaneous Information 1 Q361D XX 08/04/17 08:45 08/04/17 08:45 Chlorhexidine Gluconate (Chlorhexidine 2% Cloth) Taper DAILY@04 TOP 08/05/17 04:00 08/01/18 03:59 08/10/17 04:00 Senna/Docusate Sodium (Dorina-Colace) 1 tab BID PO 08/04/17 09:00 08/10/17 09:10 Ceftriaxone Sodium 2000 mg/ Sodium Chloride 100 ml @ 200 mls/hr Q24H IV 08/04/17 11:00 08/10/17 11:35 Pantoprazole Sodium 80 mg/ Sodium Chloride 100 ml @ 10 mls/hr CONTINUOUS IV 08/04/17 11:00 08/10/17 07:14 Chlorhexidine Gluconate (Peridex 0.12% Liq) 15 ml BID@08,20 MT 08/04/17 20:00 08/10/17 09:09 Propofol 100 ml @ 2.1 mls/hr TITRATE PRN IV SEDATION 08/04/17 12:15 08/09/17 17:39 Artificial Tears (Tears Naturale Opth Soln) 1 drop Q8H EACH EYE 08/04/17 16:00 08/10/17 09:09 Fentanyl Citrate 250 ml @ 5 mls/hr TITRATE PRN IV SEDATION 08/04/17 15:00 08/08/17 13:55 Octreotide Acetate 500 mcg/ Sodium Chloride 500 ml @ 50 mls/hr Q10H IV 08/04/17 19:00 08/10/17 05:21 Rifaximin (Xifaxan) 550 mg BID PO 08/06/17 21:00 08/10/17 09:10 Lactulose (Lactulose Liq) 30 ml QID PO 08/06/17 18:00 08/10/17 12:32 Spironolactone (Aldactone) 25 mg BID@,18 PO 08/06/17 18:00 08/10/17 09:10 Multivitamins 10 ml/Folic Acid 1 mg/Amino Acids/ Electrolytes/ Dextrose 2,010.2 ml @ 84 mls/hr [id number] IV 08/06/17 20:00 08/09/17 20:11 Magnesium Oxide (Mag-Ox) 800 mg UNSCH PRN PO For Magnesium 1.2 - 1.6 mg/dL 08/07/17 04:45 08/08/17 08:06 Potassium Phosphate (K-Phos) 2,000 mg Q4H PRN PO For Phosphorus < 2.5 mg/dL 08/07/17 04:45 08/08/17 13:54 Dexmedetomidine HCl 1000 mcg/ Sodium Chloride 250 ml @ 3.92 mls/hr TITRATE PRN IV SEDATION 08/08/17 20:15 08/10/17 11:14 Objective Remarks GENERAL: Older male, sedated and intubated SKIN: Warm and dry. HEAD: Normocephalic. EYES: No injection or drainage. NECK: Supple, trachea midline. CARDIOVASCULAR: Regular rate and rhythm without murmurs. RESPIRATORY: Clear anteriorly. Mechanically ventilated. GASTROINTESTINAL: Abdomen distended EXTREMITIES: No cyanosis, or edema. MUSCULOSKELETAL: Adequate muscle tone. NEUROLOGICAL: Sedated. Per RN he does not follow commands when sedation turned off. Assessment/Plan Problem List: (1) Esophageal varices with hemorrhage ICD Codes: I85.01 - Esophageal varices with bleeding Status: Acute Plan: -- History of alcoholic-induced liver cirrhosis -- Most recently he underwent upper endoscopy and was found to have bleeding from esophageal varices. The GI physician was unable to band. -- On Protonix and Sandostatin gtt (2) Pancytopenia ICD Codes: D61.818 - Other pancytopenia Status: Acute Plan: -- Due to hypersplenism -- Supportive care --transfuse as needed. Assessment 61 y/o male admitted for GI bleeding Plan 1. CT brain negative for bleed 2. Noted that his ANC is 800 today. We will give Neupogen 1 dose 3. Monitor CBC and coags 4. No transfusion today. Attending Statement The exam, history, and the medical decision-making described in the above note were completed with the assistance of the mid-level provider. I reviewed and agree with the findings presented. I attest that I had a [id number] encounter with the patient on the same day, and personally performed and documented my assessment and findings in the medical record. Remains intubated. INR trended down with FFP. Platelet is up with transfusion. No obvious bleeding. ANC trended down, will give neupogen today. Vera Corona Aug 10, 2017 13:15 Silvestre Hernandez MD Aug 10, 2017 14:52
--- NOTE | 2017-08-10 17:09 | HHI.CCPN ---
Subjective Remarks/Hospital Course This is a 61-year-old male with history of alcoholic liver disease with esophageal varices, who presents today with complaints of 3 episodes of vomiting black coffee-ground emesis in the ED. The patient has had multiple admissions for the same diagnosis, last admission 04/2017. The patient currently has had an assessment at [facility] for liver transplantation his previous MELD score was 21. The patient is scheduled to return to [facility] at the end of the year for evaluation for liver transplantation. The patient reports that last night at 11 PM he started experiencing some discomfort in his abdomen. He states he drank some water and then shortly thereafter vomited coffee-ground emesis. He states he had 3 further episodes with the last one having some maroon-colored blood. He presented to the ED at 5 AM He denies any shortness of breath. He denied any melanotic stools. Gastroenterology was consulted, Dr. Richards for evaluation. Critical care medicine was consulted for management. Upon my initial evaluation the patient was noted to be sinus tachycardia 110-118 heart rate, in no respiratory distress, with mild complaints of nausea recently being administered Compazine IV with resolved bleeding symptoms. The patient subsequently had another episode of hematemesis with approximately 400 cc of bright red blood. Patient scheduled to received 1 unit of FFP 2 units of platelets and will undergo EGD this a.m.. 08/05: Afebrile. Sinus rhythm. No acute events overnight. Serial H&H's appears stable, currently monitored every 6 hours. OGT minimal bilious gastric output, no heme noted. No melanotic stools. The patient was noted to be slightly hypernatremic with a sodium level 147, IV fluids changed to 1/2 normal saline. Urine output was noted to be marginal in the last 12 hours patient currently being bolused with 500 cc we'll monitor urine output. Patient remains a rest of -2 on sedation, currently nodding yes and no questions understands status post EGD patient remains intubated secondary to gastric varices, with concern for continued bleeding at the time per GI. Patient denies pain. 08/06: Afebrile. Quite agitated and not following commands on sedation vacation. Propofol and fentanyl drips resume. No bleeding noted. Hemoglobin appears stable 08/07: Afebrile. Failed sedation vacation yesterday. A.m. ammonia level pending. Currently on lactulose and Xifaxan. Chest x-ray revealed right loculated pleural effusion 08/08: Attempts at CPAP trials yesterday lasted only 5-10 minutes secondary to agitation. Patient to be placed on Precedex infusion propofol and fentanyl to be discontinued. Chest x-ray was noted to have a moderate size right pleural effusion however INR is currently 1.5 with a platelet count of 32. Plan for CPAP trials on Precedex only, confer with hematology regarding transfusion of platelets for possible thoracentesis by IR for loculated right moderate-sized pleural effusion. 08/09: still apneic. agitated but no improvement in mental status. going for CT head today. pleural effusion persists and will obtain ct chest today to evaluate for loculations. per GI, will obtain ct abd/pelvis due to worsening abdominal distension. leukopenia worse today, INR still elevated. still coagulopathic and thrombocytopenic. MELD persistently 17 this AM. Subjective: 08/10: remains encephalopathic. right large pleural effusion persists. INR stable. Objective Vital Signs Date Time Temp Pulse Resp B/P (MAP) Pulse Ox O2 Delivery O2 Flow Rate FiO2 08/10/17 14:00 62 08/10/17 13:35 99 30 08/10/17 12:00 98.2 14 158/73 (101) Intake and Output 08/10/17 08/10/17 08/10/17 07:59 15:59 23:59 Intake Total 600 ml Output Total 1250 ml Balance -650 ml Result Diagram: 08/10/17 0327 08/10/17 0327 Imaging Last Impressions Chest X-Ray 08/07/17 0600 Signed Impressions: Service Date/Time: Monday, August 07, 2017 03:31 - CONCLUSION: 1. Moderate size partially loculated right pleural effusion slightly increased from August 06. Basilar airspace disease. Endotracheal tube and nasogastric tube unchanged. Toño Glez MD Objective Remarks GENERAL: 61-year-old male, critically ill currently orotracheally intubated and sedated SKIN: Warm and dry. quite icteric on eval. HEAD: Atraumatic. Normocephalic. EYES: Pupils equal and round. No scleral icterus. No injection or drainage. ENT: No nasal bleeding or discharge. Mucous membranes pink and moist. OGT noted to LIWS minimal greenish bilious type secretions NECK: Trachea midline. No JVD. Orally intubated CARDIOVASCULAR: RRR. RESPIRATORY: Mechanical ventilation Diminished breath sounds right lower lobe. No wheezing GASTROINTESTINAL: Abdomen soft, non-tender, quite distended. Hypoactive bowel sounds MUSCULOSKELETAL: Extremities with trace lower extremity edema NEUROLOGICAL:positive gag, corneal reflex. Moves all 4 extremity spontaneously but not to command. Previously patient alert and oriented following commands prior to intubation and postintubation. Currently on propofol and fentanyl infusions. A/P Assessment and Plan Assessment: 61yM ESLD working up for transplant, now with bleeding esophageal varices, hepatic encephalopathy, acute hypoxic respiratory failure, worsening end-organ function. Remains very critically ill. large right pleural effusion preventing further weaning. will need chest tube despite coagulopathy which persists. given that transplant work-up is not complete, and he is becoming too critically ill for that as an option, his prognosis is quite poor. Appreciate palliative care assistance. For now our goals are aggressive and his multiple acute medical problems are persistently life-threatening today. NEURO/Psych: Acute toxic metabolic encephalopathy secondary to elevated ammonia Hepatic Encephalopathy Currently on propofol/fentanyl drip Goal of RASS -2 Daily sedation vacation See GI for elevated ammonia workup Respiratory: Acute hypoxemic respiratory failure Loculated right pleural effusion ACV 14/500/5/30 Ventilator bundle Patient remains intubated secondary to high risk for aspiration secondary to gastric varices per GI recommendations Maintain head of bed at least 30, patient high risk for aspiration Bronchodilators with albuterol/ipratropium aerosols every 4 hours when necessary 08/08/chest [id number] moderate right pleural effusion failing cpap trials for apnea place chest tube today to assist in vent weaning. off pathway. Cardiovascular: Sinus tachycardia most likely secondary to acute blood loss-resolved Maintain MAP greater than 65 mmHg spironolactone 25 mg twice a day, 08/07 Bumex 1 dose Renal: Hypovolemia secondary to acute blood loss-resolved Oliguria currently resolved Mcdonald catheter Monitor urine output Accurate I's and O's Creatinine currently within normal limits. 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 Esophageal varices grade 1-2 no evidence of bleeding Currently on pantoprazole drip at 8 mg an hour Continue Sandostatin drip at 50 mg an hour GI following- Dr. Richards 08/08-UB for gastric distention follow-up results The patient is being followed by [facility] for transplant initial assessment was performed 02/10 with MELD score 21. The patient is scheduled for liver transplant evaluation October 2017 at [facility] on TPN Ammonia level 89 - 08/05, continue to follow trends 08/07 pending Lactulose 30 cc 4 times a day and rifaximin 550 mill grams every 12 hours per GI management If rebleeds consideration for TIPS Heme/ID: Pancytopenia - chronic secondary to hypersplenism secondary to liver cirrhosis Coagulopathy - secondary underlying liver disease Keep 2 units packed red blood cells on hold, keep 2 ahead Serial H&H's Status post 4 packed platelets, 2 PRBCs, 1 liquid plasma and 1 cryo- Hematology oncology consulted/Dr. Brewster following Rocephin 2 GM q 24h for upper GI bleed Endocrine: Hyperglycemia of critical illness Glucose monitoring per ICU protocol -- SSI FEN: Hypocalcemia Hypo-magnesium Hypophosphatemia ICU electrolyte protocol initiated. A.m. laboratories all pending TPN Prophylaxis: GI Prophylaxis Pantoprazole/Sandostatin DVT Prophylaxis -- SCDs No pharmacological prophylaxis in the setting of bleeding Lines: Peripheral IVs adequate access at this time Critical care time:36 minutes, exclusive of separately billable procedures. Todd Gonzalez MD Aug 10, 2017 17:09
[2017-08-10] MEDS ORDERED: fentaNYL DRIP 250 ML IV PRN (19:45)
[2017-08-10] MEDS: CLINIMIX E 4.25/5 2000 mL- >42 mls/hr IV SCH ×3 (20:13)
[2017-08-11] VITALS (17 sets, daily range): BP systolic 126–175; BP diastolic 60–82; PULSE 60–87; RESP 14–15; TEMP 97.2–99.6; O2SAT 97–100
[2017-08-11] MEDS: OCTREOTIDE 500 MCG/NS 500 ML - 50 mcg/hr IV SCH ×4 (01:00→11:00)
[2017-08-11] MEDS: DEXMEDETOMIDINE INJ 1,000 MCG in SODIUM CHLOR 0.9% 250 ML INJ 240 ML IV PRN ×3 (01:35→20:12)
[2017-08-11] MEDS: CHLORHEXIDINE GLUCONATE 2 % 1 PACK (2 CLOTHS) TOP SCH (04:00)
[2017-08-11] MEDS: PANTOPRAZOLE INJ 80 MG in SODIUM CHLORIDE 0.9% INJ 100 ML IV SCH ×2 (04:30→14:24)
[2017-08-11 05:25] LABS: HEMATOCRIT 27.3 % (39.0-51.0); MEAN CELL VOLUME 95.8 FL (80.0-100.0); MEAN CORPUSCULAR HEMOGLOBIN 32.6 PG (27.0-34.0); PLATELET COUNT 42 TH/MM3 (150-450); RED BLOOD COUNT 2.85 MIL/MM3 (4.50-5.90); RED CELL DISTRIBUTION WIDTH 17.8 % (11.6-17.2); WHITE BLOOD COUNT 4.9 TH/MM3 (4.0-11.0)
[2017-08-11 05:31] LABS: REVIEW FLAG FINAL
[2017-08-11 05:42] LABS: APTT (PATIENT) 36.2 SEC (24.3-30.1); INTERNATIONAL NORMALIZED RATIO 1.6 RATIO; PROTHROMBIN TIME - PATIENT 17.7 SEC (9.8-11.6)
[2017-08-11 05:56] LABS: BICARBONATE 23.6 MEQ/L (21.0-32.0); POTASSIUM 4.3 MEQ/L (3.5-5.1)
[2017-08-11 06:00] LABS: INDIRECT BILIRUBIN 3.1 MG/DL (0.0-0.8)
[2017-08-11] MEDS: LACTULOSE SYRUP 20 GM/30 ML CUP PO SCH ×4 (09:23→20:21)
[2017-08-11] MEDS: SPIRONOLACTONE 25 MG TAB PO SCH ×2 (09:23→17:45)
[2017-08-11] MEDS: RIFAXIMIN 550 MG TAB PO SCH ×2 (09:23→20:21)
[2017-08-11] MEDS: DOCUSATE SODIUM 50 MG/SENNA 8.6 MG TAB PO SCH ×2 (09:23→20:21)
[2017-08-11] MEDS: SODIUM CHLORIDE 0.9% FLUSH 10 ML FLUSH IV FLUSH SCH ×2 (09:24→20:11)
[2017-08-11] MEDS: ARTIFICIAL TEARS OPTH SOLN 15 ML BTL EACH EYE SCH ×3 (09:25→16:00)
[2017-08-11] MEDS: CHLORHEXIDINE 0.12% (ORAL KIT) 15 ML CUP MT SCH ×2 (09:25→20:00)
[2017-08-11] MEDS: SODIUM CHLORIDE 0.9% FLUSH 10 ML FLUSH IV FLUSH PRN ×2 (09:26→20:11)
[2017-08-11] MEDS: cefTRIAXone INJ 2,000 MG in SODIUM CHLORIDE 0.9% INJ 100 ML IV SCH (11:00)
--- NOTE | 2017-08-11 12:14 | PD.ONC.PN ---
Subjective Subjective Remarks Intubated, sedated. No obvious bleeding per nurse. No bleeding from lines. Possible pigtail catheter placement today. Objective Data Date Time Temp Pulse Resp B/P (MAP) Pulse Ox O2 Delivery O2 Flow Rate FiO2 08/11/17 11:28 98 30 08/11/17 08:11 100 30 08/11/17 06:00 60 08/11/17 04:29 100 30 08/11/17 04:00 97.2 64 14 136/66 (89) 100 08/11/17 04:00 30 08/11/17 04:00 64 08/11/17 03:42 100 30 08/11/17 00:00 30 08/11/17 00:00 73 15 175/82 (113) 100 08/11/17 00:00 73 08/10/17 22:00 69 08/10/17 20:25 99 30 08/10/17 20:00 98.6 73 14 150/72 (98) 99 08/10/17 20:00 30 08/10/17 20:00 73 08/10/17 18:14 99 30 08/10/17 18:00 98.6 80 17 146/73 (97) 100 08/10/17 18:00 66 08/10/17 17:31 30 08/10/17 16:00 80 08/10/17 14:00 62 08/10/17 13:35 99 30 08/11/17 08/11/17 08/11/17 07:00 15:00 23:00 Intake Total 600 ml Output Total 1800 ml Balance -1200 ml Result Diagram: 08/11/17 0507 08/11/17 0507 Laboratory Results Laboratory Tests Test 08/10/17 12:23 08/11/17 05:01 08/11/17 05:07 Ammonia 50 MCMOL/L 53 MCMOL/L Prothrombin Time 17.7 SEC Prothromb Time International Ratio 1.6 RATIO Activated Partial Thromboplast Time 36.2 SEC White Blood Count 4.9 TH/MM3 Red Blood Count 2.85 MIL/MM3 Hemoglobin 9.3 GM/DL Hematocrit 27.3 % Mean Corpuscular Volume 95.8 FL Mean Corpuscular Hemoglobin 32.6 PG Mean Corpuscular Hemoglobin Concent 34.0 % Red Cell Distribution Width 17.8 % Platelet Count 42 TH/MM3 Mean Platelet Volume 8.6 FL Blood Urea Nitrogen 19 MG/DL Creatinine 0.56 MG/DL Random Glucose 129 MG/DL Calcium Level 7.9 MG/DL Sodium Level 140 MEQ/L Potassium Level 4.3 MEQ/L Chloride Level 110 MEQ/L Carbon Dioxide Level 23.6 MEQ/L Anion Gap 6 MEQ/L Estimat Glomerular Filtration Rate 148 ML/MIN Total Bilirubin 5.0 MG/DL Direct Bilirubin 1.9 MG/DL Indirect Bilirubin 3.1 MG/DL Aspartate Amino Transf (AST/SGOT) 40 U/L Alanine Aminotransferase (ALT/SGPT) 23 U/L Alkaline Phosphatase 78 U/L Total Protein 6.0 GM/DL Albumin 2.3 GM/DL Administered Medications Medications (Trade) Dose Ordered Sig/Arimda Route PRN Reason Start Time Stop Time Status Last Admin Dose Admin Sodium Chloride (NS Flush) 2 ml UNSCH PRN IV FLUSH FLUSH AFTER USING IV ACCESS 08/04/17 08:45 08/11/17 09:26 Sodium Chloride (NS Flush) 2 ml BID IV FLUSH 08/04/17 09:00 08/11/17 09:24 Ondansetron HCl (Zofran Inj) 4 mg Q6H PRN IV PUSH NAUSEA OR VOMITING 08/04/17 08:45 08/04/17 11:16 Miscellaneous Information 1 Q361D XX 08/04/17 08:45 08/04/17 08:45 Chlorhexidine Gluconate (Chlorhexidine 2% Cloth) Taper DAILY@04 TOP 08/05/17 04:00 08/01/18 03:59 08/10/17 04:00 Senna/Docusate Sodium (Dorina-Colace) 1 tab BID PO 08/04/17 09:00 08/11/17 09:23 Ceftriaxone Sodium 2000 mg/ Sodium Chloride 100 ml @ 200 mls/hr Q24H IV 08/04/17 11:00 08/11/17 11:00 Pantoprazole Sodium 80 mg/ Sodium Chloride 100 ml @ 10 mls/hr CONTINUOUS IV 08/04/17 11:00 08/11/17 04:30 Chlorhexidine Gluconate (Peridex 0.12% Liq) 15 ml BID@08,20 MT 08/04/17 20:00 08/11/17 09:25 Propofol 100 ml @ 2.1 mls/hr TITRATE PRN IV SEDATION 08/04/17 12:15 08/09/17 17:39 Artificial Tears (Tears Naturale Opth Soln) 1 drop Q8H EACH EYE 08/04/17 16:00 08/11/17 09:25 Fentanyl Citrate 250 ml @ 5 mls/hr TITRATE PRN IV SEDATION 08/04/17 15:00 08/08/17 13:55 Octreotide Acetate 500 mcg/ Sodium Chloride 500 ml @ 50 mls/hr Q10H IV 08/04/17 19:00 08/11/17 01:00 Rifaximin (Xifaxan) 550 mg BID PO 08/06/17 21:00 08/11/17 09:23 Lactulose (Lactulose Liq) 30 ml QID PO 08/06/17 18:00 08/11/17 09:23 Spironolactone (Aldactone) 25 mg BID@,18 PO 08/06/17 18:00 08/11/17 09:23 Multivitamins 10 ml/Folic Acid 1 mg/Amino Acids/ Electrolytes/ Dextrose 2,010.2 ml @ 84 mls/hr [id number] IV 08/06/17 20:00 08/10/17 20:13 Magnesium Oxide (Mag-Ox) 800 mg UNSCH PRN PO For Magnesium 1.2 - 1.6 mg/dL 08/07/17 04:45 08/08/17 08:06 Potassium Phosphate (K-Phos) 2,000 mg Q4H PRN PO For Phosphorus < 2.5 mg/dL 08/07/17 04:45 08/08/17 13:54 Dexmedetomidine HCl 1000 mcg/ Sodium Chloride 250 ml @ 3.92 mls/hr TITRATE PRN IV SEDATION 08/10/17 19:45 08/11/17 01:35 Objective Remarks GENERAL: Intubated sedated male, lying supine in hospital bed. SKIN: Warm and dry. HEAD: Normocephalic. ET tube in place, no bleeding. NECK: trachea midline. CARDIOVASCULAR: +S1/S2 RESPIRATORY: anterior lung salazar clear. GASTROINTESTINAL: Abdomen distended. EXTREMITIES: No cyanosis. +edema in all extremities. NEUROLOGICAL: intubated, sedated. Assessment/Plan Problem List: (1) Esophageal varices with hemorrhage ICD Codes: I85.01 - Esophageal varices with bleeding Status: Acute Plan: -- History of alcoholic-induced liver cirrhosis -- Most recently he underwent upper endoscopy and was found to have bleeding from esophageal varices. The GI physician was unable to band. -- On Protonix and Sandostatin gtt (2) Pancytopenia ICD Codes: D61.818 - Other pancytopenia Status: Acute Plan: -- Due to hypersplenism -- Supportive care --transfuse as needed. --given one dose of Neupogen on 08/10, WBC improved. Assessment 61 y/o male admitted for GI bleeding Plan 1. monitor CBC coags 2. no Neupogen today, WBC recovered 3. no transfusion today unless bleeding or if needed pre-procedure. Attending Statement The exam, history, and the medical decision-making described in the above note were completed with the assistance of the mid-level provider. I reviewed and agree with the findings presented. I attest that I had a [id number] encounter with the patient on the same day, and personally performed and documented my assessment and findings in the medical record. Remains intubated and sedated. No evidence of bleeding. INR trended up to 1.6. Will transfuse FFP if any sign of bleeding. Platelet stable. Neutropenia resolved with neupogen. Kady Byers Aug 11, 2017 12:14 Silvestre Hernandez MD Aug 11, 2017 15:29
--- NOTE | 2017-08-11 14:47 | HHI.GIFU ---
Subjective Remarks Lightly sedated on vent. Small amount of bleeding for mouth- nurse reports no active gi bleeding, oozing from biting/fighting OETT. + BM. Abdomen softer. [facility] accepted patient for inpatient transfer for medical management, possible liver transplant evaluation. (Natalia Anderson) Objective Vitals I&O Vital Signs Date Time Temp Pulse Resp B/P (MAP) Pulse Ox O2 Delivery O2 Flow Rate FiO2 08/11/17 11:28 98 30 08/11/17 08:11 100 30 08/11/17 06:00 60 08/11/17 04:29 100 30 08/11/17 04:00 97.2 64 14 136/66 (89) 100 08/11/17 04:00 30 08/11/17 04:00 64 08/11/17 03:42 100 30 08/11/17 00:00 30 08/11/17 00:00 73 15 175/82 (113) 100 08/11/17 00:00 73 08/10/17 22:00 69 08/10/17 20:25 99 30 08/10/17 20:00 98.6 73 14 150/72 (98) 99 08/10/17 20:00 30 08/10/17 20:00 73 08/10/17 18:14 99 30 08/10/17 18:00 98.6 80 17 146/73 (97) 100 08/10/17 18:00 66 08/10/17 17:31 30 08/10/17 16:00 80 I/O 08/10/17 08/10/17 08/10/17 08/11/17 08/11/17 08/11/17 07:00 15:00 23:00 07:00 15:00 23:00 Intake Total 500 ml 100 ml 2450 ml 600 ml Output Total 1250 ml 2200 ml 1800 ml Balance -750 ml 100 ml 250 ml -1200 ml Intake IV Total 500 ml 100 ml 2000 ml 600 ml TPN/PPN 450 ml Output Urine Total 1250 ml 2200 ml 1800 ml # Bowel Movements 1 Laboratory Laboratory Tests Test 08/11/17 05:01 08/11/17 05:07 Prothrombin Time 17.7 Prothromb Time International Ratio 1.6 Activated Partial Thromboplast Time 36.2 Ammonia 53 White Blood Count 4.9 Red Blood Count 2.85 Hemoglobin 9.3 Hematocrit 27.3 Mean Corpuscular Volume 95.8 Mean Corpuscular Hemoglobin 32.6 Mean Corpuscular Hemoglobin Concent 34.0 Red Cell Distribution Width 17.8 Platelet Count 42 Mean Platelet Volume 8.6 Blood Urea Nitrogen 19 Creatinine 0.56 Random Glucose 129 Calcium Level 7.9 Sodium Level 140 Potassium Level 4.3 Chloride Level 110 Carbon Dioxide Level 23.6 Anion Gap 6 Estimat Glomerular Filtration Rate 148 Total Bilirubin 5.0 Direct Bilirubin 1.9 Indirect Bilirubin 3.1 Aspartate Amino Transf (AST/SGOT) 40 Alanine Aminotransferase (ALT/SGPT) 23 Alkaline Phosphatase 78 Total Protein 6.0 Albumin 2.3 Imaging Last Impressions Chest X-Ray 08/09/17 0600 Signed Impressions: Service Date/Time: Wednesday, August 09, 2017 04:35 - CONCLUSION: 1. Endotracheal tube and nasogastric tube in satisfactory position. Moderate right effusion. Findings similar to August 07. Toño Glez MD Head CT 08/09/17 0000 Signed Impressions: Service Date/Time: Wednesday, August 09, 2017 15:31 - CONCLUSION: 1. No acute intracranial abnormality. Saurav Nicholson MD Chest CT 08/09/17 0000 Signed Impressions: Service Date/Time: Wednesday, August 09, 2017 15:36 - CONCLUSION: Large pleural effusion on the right with compressive atelectatic changes right lung Small pleural effusion on the left. Small liver masses or megaly. Hamlet Nicholson MD FACR Abdomen/Pelvis CT 08/09/17 0000 Signed Impressions: Service Date/Time: Wednesday, August 09, 2017 15:38 - CONCLUSION: Small liver and prominent spleen or varicosities. Trace ascites. All consistent with hepatocellular disease. Bosniak 3 cyst left kidney Large right pleural effusion. Hamlet Nicholson MD FACR Abdomen X-Ray 08/09/17 0000 Signed Impressions: Service Date/Time: Wednesday, August 09, 2017 10:02 - CONCLUSION: Diffuse gaseous distention of colon improved when compared to previous. Saurav Nicholson MD Physical Exam HEENT: Normocephalic; atraumatic; no jaundice. CHEST: Resp even/unlabored, on vent. Diminished right lower lobe CARDIAC: ST, mild ABDOMEN: Soft, distended, hepatosplenomegaly; bowel sounds are present in all four quadrants. OGT with bilious colored material. Rectal tube with liquid brown stool SKIN: Generalized edema. [employer]: Sedated on vent. (Natalia Anderson) Assessment and Plan Plan ASSESSMENT: - Recurrent upper GIB, hematemesis. Hospitalized in April of 2017 and was evaluated with S/P EGD (05/24/17)-----> Distal esophageal Barretts esophagus and grade 1-2 varices, Stomach: no blood. No ulcers. Mucosa does not appear edematous duodenum: normal. S/P Angiogram of the Celiac, Superior Mesenteric Artery (05/24/17)---> no hemorrhagic focus identified. S/P EGD with needle injection for bleeding (08/04/18), official report pending, according to emr note, gastric varices-bleeding unable to band, chance of rebeed, patient to remain intubated. Esophageal varices grade 1-2 no evidence of bleeding. OGT to LIWS with bilious material. No active gib at this time. Octreotide, Protonix gtt. HH .02/20.3. TPN. Octreotide, Protonix Gtt. Ceftriaxone - Colonic ileus. KUB (08/08/17)-----> Air filled mildly dilated loops of colon suggesting ileus or distal colonic obstruction. Clinical correlation is recommended. Right pleural effusion, degenerative changes throughout the thoracolumbar spine. CT Scan abdomen and pelvis with iv contrast (08/09/17)----> Small liver and prominent spleen or varicosities. Trace ascites. All consistent with hepatocellular disease, Bosniak 3 cyst left kidney, large right pleural effusion. Rectal tube in place- less distended. Multiple loose stools. - Anemia, acute blood loss. HH .02/20.3. - Severe thrombocytopenia, coagulopathy. Plt 42,000, PT 17.7, INR 1.6. Hematology following, S/P 3 units FFP, 6 units, 1 unit cryoprecipitate. Not actively bleeding. - Liver cirrhosis. Established at [facility], Caitlin Styles . Last seen in January. Spoke to Caitlin Styles (liver audience coordinator) on 08/09 re: hospitalization, condition, chances of evaluation for liver transplant. States that patient had apositive blood alcohol test in January of 2017 and that pts are usually banned for program with this, but that because patient adamantly denied using alcohol, the committee agreed to reconsider him if he did not have any further positive etoh labs x 1 year (with monthly random alcohol levels). Since that time, he has remained negative (6 months). She does not feel that the committee will even consider patient for transplant until he has completed 12 months without any positive random alcohol levels. She reports that she has suggested patient try [facility] or other tertiary centers that only require 6 month without ETOH. CM consulted, will try [facility] and [facility] for transfer for transplant evaluation. Of note, pt's MELD on admission was 7. However, he is requiring frequent hospitalizations for recurrent GIB and is now having recurrent pleural effusion. Since his diagnosis in March 2016, he has had 8 hospitalization and multiple EGD's for recurrent bleeding. Now with hepatic encephalopathy, so likely not a TIPS candidate. [facility] has accepted patient for medical management/possible liver transplant evaluation. - Hepatic encephalopathy. Lactulose. Xifaxan. Ammonia 53. - GERD, Russell's Esophagus. Protonix. - Respiratory failure, right pleural effusion. Vent per [facility] PLAN: - Tx to [facility] when bed available- they have accepted patient - NPO - OGT to LIWS - Cont. Protonix gtt - Cont. Octreotide gtt - Cont. Xifaxan/Lactulose - Cont. Spironolactone - Cont. TPN - Monitor labs - Hematology following, transfusions per hematology - Supportive care - Palliative care following - Further recommendations to follow based on results of above - Pt seen and examined by Dr. Bennett and myself and this note is written on her behalf (Natalia Anderson) Physician Comments agree with above ok to extubate from gi point (Dai Bennett MD) Natalia Anderson Aug 11, 2017 14:47 Dai Bennett MD Aug 11, 2017 20:07
--- NOTE | 2017-08-11 17:50 | HHI.DS ---
Discharge Summary Admission Date Aug 04, 2017 at 08:18 Discharge Date: Aug 11, 2017 Admitting Diagnosis Upper GI Bleed, esophageal varices, anemia, cirrhosis Brief History This is a 61-year-old male with history of alcoholic liver disease with esophageal varices, who presents today with complaints of 3 episodes of vomiting black coffee-ground emesis in the ED. The patient has had multiple admissions for the same diagnosis, last admission 04/2017. The patient currently has had an assessment at [facility] for liver transplantation his previous MELD score was 21. The patient is scheduled to return to [facility] at the end of the year for evaluation for liver transplantation. The patient reports that last night at 11 PM he started experiencing some discomfort in his abdomen. He states he drank some water and then shortly thereafter vomited coffee-ground emesis. He states he had 3 further episodes with the last one having some maroon-colored blood. He presented to the ED at 5 AM He denies any shortness of breath. He denied any melanotic stools. Gastroenterology was consulted, Dr. Richards for evaluation. Critical care medicine was consulted for management. Upon my initial evaluation the patient was noted to be sinus tachycardia 110-118 heart rate, in no respiratory distress, with mild complaints of nausea recently being administered Compazine IV with resolved bleeding symptoms. The patient subsequently had another episode of hematemesis with approximately 400 cc of bright red blood. Patient scheduled to received 1 unit of FFP 2 units of platelets and will undergo EGD this a.m.. CBC/BMP: 08/11/17 0507 08/11/17 0507 Significant Findings Laboratory Tests Test 08/09/17 04:39 08/09/17 07:14 08/09/17 19:50 08/10/17 03:27 Arterial Blood pH 7.45 (7.380-7.420) Arterial Blood Partial Pressure CO2 35 mmHg (38-42) Blood Gas Hemoglobin 10.1 G/DL (12.0-16.0) White Blood Count 1.7 TH/MM3 (4.0-11.0) 1.3 TH/MM3 (4.0-11.0) Red Blood Count 2.76 MIL/MM3 (4.50-5.90) 2.61 MIL/MM3 (4.50-5.90) Hemoglobin 9.3 GM/DL (13.0-17.0) 8.8 GM/DL (13.0-17.0) Hematocrit 26.3 % (39.0-51.0) 25.0 % (39.0-51.0) Red Cell Distribution Width 17.3 % (11.6-17.2) 17.3 % (11.6-17.2) Platelet Count 25 TH/MM3 (150-450) 46 TH/MM3 (150-450) Lymphocytes (%) (Auto) 8.7 % (9.0-44.0) Monocytes (%) (Auto) 15.2 % (0.0-8.0) 22.7 % (0.0-8.0) Eosinophils (%) (Auto) 5.5 % (0.0-4.0) Neutrophils # (Auto) 1.2 TH/MM3 (1.8-7.7) 0.8 TH/MM3 (1.8-7.7) Lymphocytes # (Auto) 0.1 TH/MM3 (1.0-4.8) 0.2 TH/MM3 (1.0-4.8) Band Neutrophils % 8 % (0-6) 15 % (0-6) Monocytes % 9 % (0-8) 23 % (0-8) Eosinophils % 5 % (0-4) 5 % (0-4) Neutrophils # (Manual) 1.3 TH/MM3 (1.8-7.7) 0.7 TH/MM3 (1.8-7.7) Platelet Estimate LOW (NORMAL) RARE (NORMAL) Ovalocytes 1+ (NORMAL) 1+ (NORMAL) Prothrombin Time 19.2 SEC (9.8-11.6) 16.6 SEC (9.8-11.6) 15.7 SEC (9.8-11.6) Activated Partial Thromboplast Time 38.8 SEC (24.3-30.1) 35.6 SEC (24.3-30.1) 34.4 SEC (24.3-30.1) Blood Urea Nitrogen 19 MG/DL (7-18) 21 MG/DL (7-18) Creatinine 0.49 MG/DL (0.60-1.30) 0.48 MG/DL (0.60-1.30) Random Glucose 149 MG/DL (74-106) Calcium Level 7.7 MG/DL (8.5-10.1) 8.4 MG/DL (8.5-10.1) Phosphorus Level 2.4 MG/DL (2.5-4.9) Chloride Level 108 MEQ/L (98-107) 110 MEQ/L (98-107) Myelocytes 2 % (0-0) Promyelocytes 2 % (0-0) Tear Drop Cells 1+ (NORMAL) Total Protein 5.6 GM/DL (6.4-8.2) Albumin 2.3 GM/DL (3.4-5.0) Total Bilirubin 3.6 MG/DL (0.2-1.0) Direct Bilirubin 1.6 MG/DL (0.0-0.2) Indirect Bilirubin 2.0 MG/DL (0.0-0.8) Test 08/10/17 12:23 08/11/17 05:01 08/11/17 05:07 Ammonia 50 MCMOL/L (11-32) 53 MCMOL/L (11-32) Prothrombin Time 17.7 SEC (9.8-11.6) Activated Partial Thromboplast Time 36.2 SEC (24.3-30.1) Red Blood Count 2.85 MIL/MM3 (4.50-5.90) Hemoglobin 9.3 GM/DL (13.0-17.0) Hematocrit 27.3 % (39.0-51.0) Red Cell Distribution Width 17.8 % (11.6-17.2) Platelet Count 42 TH/MM3 (150-450) Blood Urea Nitrogen 19 MG/DL (7-18) Creatinine 0.56 MG/DL (0.60-1.30) Random Glucose 129 MG/DL (74-106) Calcium Level 7.9 MG/DL (8.5-10.1) Chloride Level 110 MEQ/L (98-107) Total Bilirubin 5.0 MG/DL (0.2-1.0) Direct Bilirubin 1.9 MG/DL (0.0-0.2) Indirect Bilirubin 3.1 MG/DL (0.0-0.8) Aspartate Amino Transf (AST/SGOT) 40 U/L (15-37) Total Protein 6.0 GM/DL (6.4-8.2) Albumin 2.3 GM/DL (3.4-5.0) Hospital Course 08/05: Afebrile. Sinus rhythm. No acute events overnight. Serial H&H's appears stable, currently monitored every 6 hours. OGT minimal bilious gastric output, no heme noted. No melanotic stools. The patient was noted to be slightly hypernatremic with a sodium level 147, IV fluids changed to 1/2 normal saline. Urine output was noted to be marginal in the last 12 hours patient currently being bolused with 500 cc we'll monitor urine output. Patient remains a rest of -2 on sedation, currently nodding yes and no questions understands status post EGD patient remains intubated secondary to gastric varices, with concern for continued bleeding at the time per GI. Patient denies pain. 08/06: Afebrile. Quite agitated and not following commands on sedation vacation. Propofol and fentanyl drips resume. No bleeding noted. Hemoglobin appears stable 08/07: Afebrile. Failed sedation vacation yesterday. A.m. ammonia level pending. Currently on lactulose and Xifaxan. Chest x-ray revealed right loculated pleural effusion 08/08: Attempts at CPAP trials yesterday lasted only 5-10 minutes secondary to agitation. Patient to be placed on Precedex infusion propofol and fentanyl to be discontinued. Chest x-ray was noted to have a moderate size right pleural effusion however INR is currently 1.5 with a platelet count of 32. Plan for CPAP trials on Precedex only, confer with hematology regarding transfusion of platelets for possible thoracentesis by IR for loculated right moderate-sized pleural effusion. 08/09: still apneic. agitated but no improvement in mental status. going for CT head today. pleural effusion persists and will obtain ct chest today to evaluate for loculations. per GI, will obtain ct abd/pelvis due to worsening abdominal distension. leukopenia worse today, INR still elevated. still coagulopathic and thrombocytopenic. MELD persistently 17 this AM. 08/10: remains encephalopathic. right large pleural effusion persists. INR stable. Summary: This is a 61-year-old male well-known to me who has a history of end- stage liver disease secondary to alcoholic cirrhosis. He's had multiple prior GI bleeds in the last 6 months, from accommodation of alcoholic gastritis as well as esophageal varices. Most recently presented with upper GI bleeding found to have a varix which was intervened upon with epinephrine. His course here has been, located by hepatic encephalopathy requiring intubation and mechanical ventilation, right sided pleural effusion, and worsening coagulopathy and thrombocytopenia. Today, his mental status is improved and he is following commands. After talking with hepatology, they requested transfer to [facility] in [place] for medical optimization and review for possible TIPS procedure, understanding that he does have a diagnosis of hepatic encephalopathy. Patient will be discharged in stable condition, remaining intubated for transport and safety. Pt Condition on Discharge: Stable Discharge Disposition: Trnsfr to Other Facility Discharge Instructions DIET: Follow Instructions for: On Tube Feeding Activities you can perform: Continue Bedrest Todd Gonzalez MD Aug 11, 2017 17:50
[2017-08-11] MEDS: CLINIMIX E 4.25/5 2000 mL- >42 mls/hr IV SCH ×3 (20:08)
[2017-08-12 00:11] VITALS: O2SAT 98
[2017-08-12] MEDS: ARTIFICIAL TEARS OPTH SOLN 15 ML BTL EACH EYE SCH (00:14)
[2017-08-12] MEDS: OCTREOTIDE 500 MCG/NS 500 ML - 50 mcg/hr IV SCH ×2 (00:14)
== END 2017-08-12 00:55 | disposition short-term general hospital (02) | DRG 377 ==
LOC: NEPC 06:41 → NEDA 08:18 → HIMW 13:50
PROVIDERS: ADMIT Anesthesiology; ATTEND Anesthesiology
PROC: 5A1955Z Respiratory Ventilation, Greater than 96 Consecutive Hours (ICD-10-PCS; 2017-08-04)
PROC: 30233N1 Transfusion of Nonautologous Red Blood Cells into Peripheral Vein, Percutaneous Approach (ICD-10-PCS; 2017-08-04)
PROC: 6A551Z2 Pheresis of Platelets, Multiple (ICD-10-PCS; 2017-08-04)
PROC: 0W3P8ZZ Control Bleeding in Gastrointestinal Tract, Via Natural or Artificial Opening Endoscopic (ICD-10-PCS; 2017-08-04)
PROC: 30233K1 Transfusion of Nonautologous Frozen Plasma into Peripheral Vein, Percutaneous Approach (ICD-10-PCS; principal; 2017-08-04 11:24)
PROC: 0T9B70Z Drainage of Bladder with Drainage Device, Via Natural or Artificial Opening (ICD-10-PCS; 2017-08-05)
DX: K92.0 Hematemesis (principal); J96.01 Acute respiratory failure with hypoxia; G93.41 Metabolic encephalopathy; J90 Pleural effusion, not elsewhere classified; D61.818 Other pancytopenia; E87.0 Hyperosmolality and hypernatremia; D68.4 Acquired coagulation factor deficiency; D62 Acute posthemorrhagic anemia; K76.6 Portal hypertension; K56.7 Ileus, unspecified; K70.30 Alcoholic cirrhosis of liver without ascites; I86.4 Gastric varices; E86.1 Hypovolemia; I10 Essential (primary) hypertension; Z87.442 Personal history of urinary calculi; R00.0 Tachycardia, unspecified; K22.70 Barrett's esophagus without dysplasia; K31.89 Other diseases of stomach and duodenum; Z80.3 Family history of malignant neoplasm of breast; Z82.49 Family history of ischemic heart disease and other diseases of the circulatory system; K21.9 Gastro-esophageal reflux disease without esophagitis; D73.1 Hypersplenism; I85.10 Secondary esophageal varices without bleeding; E83.51 Hypocalcemia; E83.42 Hypomagnesemia; E83.39 Other disorders of phosphorus metabolism
CPT/HCPCS: 31500; 36430; 36600; 70450; 71010; 71250; 74000; 74176; 76937; 80048; 80053; 80076; 82140; 82150; 82550; 82805; 82948; 83605; 83690; 83735; 84100; 85007; 85014; 85018; 85025; 85027; 85384; 85610; 85730; 86850; 86900; 86901; 86920; 86927; 86965; 87641; 94002; 94003; 96365; 96375; C9113; J0171; J0461; J0610; J0696; J0780; J1442; J2250; J2354; J2405; J3010; J3475; J3480; J7030; J7040; J7050; P9016; P9017; P9035

== ENCOUNTER 2017-12-11 13:52 | Emergency (ER) | payer BC ==
[~2017-12-11] VITALS: Ht 172.7 cm; Wt 68.0 kg
[2017-12-11 14:09] VITALS: BP 129/71; PULSE 72; RESP 16; TEMP 97.8; O2SAT 100
[2017-12-11] MEDS ORDERED: LACT10SO PO (14:22)
[2017-12-11] MEDS ORDERED: SODIUM CHLORIDE 0.9% FLUSH 10 ML FLUSH IV FLUSH PRN (14:30)
[2017-12-11 14:33] VITALS: RESP 16; O2SAT 100
[2017-12-11 15:07] LABS: BASOPHIL % 0.6 % (0.0-2.0); EOSINOPHIL # 0.1 TH/MM3 (0-0.4); EOSINOPHIL % 2.7 % (0.0-4.0); HEMATOCRIT 31.8 % (39.0-51.0); HEMOGLOBIN 10.5 GM/DL (13.0-17.0); LYMPH % 22.8 % (9.0-44.0); LYMPHOCYTE # 1.2 TH/MM3 (1.0-4.8); MEAN CELL VOLUME 108.4 FL (80.0-100.0); MEAN CORPUSCULAR HEMOGLOBIN 35.7 PG (27.0-34.0); MEAN CORPUSCULAR HGB CONC 32.9 % (32.0-36.0); MONOCYTE # 0.9 TH/MM3 (0-0.9); NEUT % 56.9 % (16.0-70.0); PLATELET COUNT 46 TH/MM3 (150-450); RED BLOOD COUNT 2.93 MIL/MM3 (4.50-5.90); RED CELL DISTRIBUTION WIDTH 15.4 % (11.6-17.2); WHITE BLOOD COUNT 5.2 TH/MM3 (4.0-11.0)
[2017-12-11 15:17] LABS: CHLORIDE 94 MEQ/L (98-107); SODIUM (NA) 132 MEQ/L (136-145)
[2017-12-11 15:19] LABS: INTERNATIONAL NORMALIZED RATIO 1.7 RATIO; PROTHROMBIN TIME - PATIENT 17.3 SEC (9.8-11.6)
[2017-12-11 15:22] LABS: ALBUMIN 2.7 GM/DL (3.4-5.0); BICARBONATE 30.1 MEQ/L (21.0-32.0); BLOOD UREA NITROGEN 12 MG/DL (7-18); GLUCOSE,RANDOM 97 MG/DL (74-106)
[2017-12-11 15:25] LABS: ALT (GPT) 24 U/L (12-78); AST (GOT) 46 U/L (15-37); CREATININE 0.76 MG/DL (0.60-1.30); GLOMERULAR FILTRATION RATE 104 ML/MIN (>89)
[2017-12-11 15:26] LABS: TOTAL BILIRUBIN ADULT 4.4 MG/DL (0.2-1.0); TOTAL PROTEIN 7.8 GM/DL (6.4-8.2)
[2017-12-11 15:28] LABS: ALKALINE PHOSPHATASE 135 U/L (45-117)
[2017-12-11 15:30] LABS: TROPONIN I LESS THAN 0.02 NG/ML (0.02-0.05)
--- NOTE | 2017-12-11 15:37 | RADRPT ---
EXAM DATE/TIME: 12/11/2017 15:10 [facility] COMPARISON: CT ABDOMEN & PELVIS W/O CONTRAST, August 09, 2017, 15:38. INDICATIONS : Dizziness. Status post fall. RADIATION DOSE: 65.70 CTDIvol (mGy) MEDICAL HISTORY : Hypertension. Esophageal varices. Paracentesis. Kidney stones. Liver disease. ETOH. Cirrhosis. Thrombocytopenia. SURGICAL HISTORY : Paracentesis. Chest tube; right. Paracentesis. Bone spur right elbow. ENCOUNTER: Initial ACUITY: 1 day PAIN SCALE: 0/10 LOCATION: cranial Head. TECHNIQUE: Multiple contiguous axial images were obtained of the head. Using automated exposure control and adj ustment of the mA and/or kV according to patient size, radiation dose was kept as low as reasonably a chievable to obtain optimal diagnostic quality images. DICOM format image data is available electro nically for review and comparison. FINDINGS: CEREBRUM: The ventricles are normal for age. No evidence of midline shift, mass lesion, hemorrhage or acute in farction. No extra-axial fluid collections are seen. POSTERIOR FOSSA: The cerebellum and brainstem are intact. The 4th ventricle is midline. The cerebellopontine angle i s unremarkable. EXTRACRANIAL: The visualized portion of the orbits is intact. There is minimal fluid in the mastoid air cells on th e left SKULL: The calvaria is intact. No evidence of skull fracture. CONCLUSION: 1. No acute intracranial abnormality identified. 2. There is minimal fluid present within the mastoid air cells on the left. Saurav Nicholson MD on December 11, 2017 at 15:26 Board Certified Radiologist. This report was verified electronically.
[2017-12-11 16:43] VITALS: BP 100/56; PULSE 77; RESP 16; O2SAT 100
--- NOTE | 2017-12-11 16:55 | PD ---
HPI Chief Complaint: Dizziness Time Seen by Provider: 14:07 Travel History International Travel<30 days: No Contact w/Intl Traveler<30days: No Traveled to known affect area: No History of Present Illness HPI Patient is a 62 year old male who comes in after he got dizzy and fell. He says he was unable to get up at first, so he called 911. He has history of chronic alcoholism with cirrhosis, esophageal varices. He says he was sober for a year, but has relapsed since his a few weeks ago. He was drinking before this happened. He says he hit his head, but he does not think that he passed out. He denies any pain. He denies abdominal pain, chest pain, SOB. He denies fever or chills. PFSH Past Medical History Hx Anticoagulant Therapy: No Anemia: Yes (thrombocytopenia ) Asthma: No Autoimmune Disease: No Anxiety: No Depression: No Heart Rhythm Problems: No Cancer: No Cardiovascular Problems: Yes (HTN ) High Cholesterol: No Chest Pain: No Congestive Heart Failure: No Cirrhosis: Yes (Cirrhosis of the liver) COPD: No Cerebrovascular Accident: No Diabetes: No Patient Takes Glucophage: No Diminished Hearing: No Endocrine: No Gastrointestinal Disorders: Yes (hx of esophageal varices) GERD: No Genitourinary: Yes Headaches: No Hiatal Hernia: No Heparin Induced Thrombocytopen: No Hypertension: Yes Immune Disorder: No Implanted Vascular Access Dvce: No Kidney Stones: Yes (2009) Musculoskeletal: No Neurologic: Yes Psychiatric: No Reproductive: No Respiratory: Yes (Rt chest tubes) Migraines: No Renal Failure: No Seizures: No Sickle Cell Disease: No Sleep Apnea: No Thyroid Disease: No Ulcer: No Tetanus Vaccination: < 5 Years Past Surgical History AICD: No Arteriovenous Shunt: No Cardiac Surgery: No Ear Surgery: No Endocrine Surgery: No Eye Surgery: No Genitourinary Surgery: No Gynecologic Surgery: No Insulin Pump: No Joint Replacement: No Neurologic Surgery: No Oral Surgery: No Pacemaker: No Thoracic Surgery: Yes (right side chest tubes) Other Surgery: Yes (R ELBOW BONE SPUR REMOVAL, Rt chest tubes for pleural effusion Aug 2016) Social History Alcohol Use: Yes Tobacco Use: No Substance Use: No Allergies-Medications (Allergen,Severity, Reaction): Coded Allergies: No Known Allergies (Unverified Adverse Reaction, Unknown, 12/11/17) Reported Meds & Prescriptions Reported Meds & Active Scripts Active Pantoprazole (Pantoprazole Sodium) 40 Mg Tab 40 Mg PO DAILY Aldactone (Spironolactone) 50 Mg Tab 50 Mg PO BID@ Reported [Lactulose] Unknown Dose PO TID Review of Systems Except as stated in HPI: all other systems reviewed are Neg General / Constitutional: No: Fever, Chills HENT: No: Headaches, Lightheadedness Cardiovascular: No: Chest Pain or Discomfort Respiratory: No: Shortness of Breath Gastrointestinal: No: Nausea, Vomiting, Abdominal Pain Genitourinary: No: Dysuria, Flank Pain Musculoskeletal: No: Myalgias, Edema Skin: Positive Change in Pigmentation Neurologic: No: Weakness, Dizziness Physical Exam Narrative GENERAL: Awake and alert, in no acute distress. SKIN: Focused skin assessment warm/dry. Mild jaundice. HEAD: Atraumatic. Normocephalic. EYES: Pupils equal and round. Scleral icterus present.. Extraocular movements intact. ENT: Mucous membranes pink and moist. NECK: Trachea midline. No JVD. CARDIOVASCULAR: Regular rate and rhythm. No murmur appreciated. RESPIRATORY: No accessory muscle use. Clear to auscultation. Breath sounds equal bilaterally. GASTROINTESTINAL: Abdomen soft, non-tender, nondistended. MUSCULOSKELETAL: No obvious deformities. No clubbing. No cyanosis. No edema. NEUROLOGICAL: Awake and alert. No obvious cranial nerve deficits. Motor grossly within normal limits. Normal speech. PSYCHIATRIC: Appropriate mood and affect; insight and judgment normal. Data Data Last Documented VS Vital Signs Date Time Temp Pulse Resp B/P (MAP) Pulse Ox O2 Delivery O2 Flow Rate FiO2 12/11/17 16:43 77 16 100/56 (71) 100 Room Air 12/11/17 14:09 97.8 Orders Orders Electrocardiogram (12/11/17 14:23) Ammonia (12/11/17 14:23) Complete Blood Count With Diff (12/11/17 14:23) Comprehensive Metabolic Panel (12/11/17 14:23) Prothrombin Time / Inr (Pt) (12/11/17 14:23) Act Partial Throm Time (Ptt) (12/11/17 14:23) Troponin I (12/11/17 14:23) Ct Brain W/O Iv Contrast(Rout) (12/11/17 14:23) Blood Glucose (12/11/17 14:23) Ecg Monitoring (12/11/17 14:23) Iv Access Insert/Monitor (12/11/17 14:23) Oximetry (12/11/17 14:23) Sodium Chloride 0.9% Flush (Ns Flush) (12/11/17 14:30) Alcohol (Ethanol) (12/11/17 14:23) Labs Laboratory Tests Test 12/11/17 14:30 White Blood Count 5.2 TH/MM3 Red Blood Count 2.93 MIL/MM3 Hemoglobin 10.5 GM/DL Hematocrit 31.8 % Mean Corpuscular Volume 108.4 FL Mean Corpuscular Hemoglobin 35.7 PG Mean Corpuscular Hemoglobin Concent 32.9 % Red Cell Distribution Width 15.4 % Platelet Count 46 TH/MM3 Mean Platelet Volume 8.0 FL Neutrophils (%) (Auto) 56.9 % Lymphocytes (%) (Auto) 22.8 % Monocytes (%) (Auto) 17.0 % Eosinophils (%) (Auto) 2.7 % Basophils (%) (Auto) 0.6 % Neutrophils # (Auto) 3.0 TH/MM3 Lymphocytes # (Auto) 1.2 TH/MM3 Monocytes # (Auto) 0.9 TH/MM3 Eosinophils # (Auto) 0.1 TH/MM3 Basophils # (Auto) 0.0 TH/MM3 CBC Comment AUTO DIFF Differential Comment AUTO DIFF CONFIRMED Platelet Estimate RARE Platelet Morphology Comment NORMAL Prothrombin Time 17.3 SEC Prothromb Time International Ratio 1.7 RATIO Activated Partial Thromboplast Time 34.3 SEC Blood Urea Nitrogen 12 MG/DL Creatinine 0.76 MG/DL Random Glucose 97 MG/DL Total Protein 7.8 GM/DL Albumin 2.7 GM/DL Calcium Level 8.0 MG/DL Alkaline Phosphatase 135 U/L Aspartate Amino Transf (AST/SGOT) 46 U/L Alanine Aminotransferase (ALT/SGPT) 24 U/L Total Bilirubin 4.4 MG/DL Sodium Level 132 MEQ/L Potassium Level 3.6 MEQ/L Chloride Level 94 MEQ/L Carbon Dioxide Level 30.1 MEQ/L Anion Gap 8 MEQ/L Estimat Glomerular Filtration Rate 104 ML/MIN Ammonia LESS THAN 10 MCMOL/L Troponin I LESS THAN 0.02 NG/ML Ethyl Alcohol Level 283 MG/DL MDM Medical Decision Making Medical Screen Exam Complete: Yes Emergency Medical Condition: Yes Medical Record Reviewed: Yes Interpretation(s) ECG shows normal sinus rhythm at a rate of 67, no ST elevation or depression, normal intervals Differential Diagnosis Alcohol intoxication versus dehydration versus electrolyte abnormality Narrative Course Patient is a 62-year-old male comes in after an episode of dizziness and fall. Exam shows jaundice and scleral icterus. Patient says this is improved for him. IV established, labs sent. Labs show elevated bilirubin, elevated INR. These are similar to previous. Platelets are low, but increased from previous. CT head performed shows no acute abnormalities. Patient observed in the ED. He was found to be intoxicated with an alcohol level 283. He has no further complaints and is feeling better. His friend is here and will take him home. They're comfortable with discharge at this time. He is advised to avoid alcohol. Advised follow-up with his doctors. Advised to return to the ED as needed for any worsening symptoms. Diagnosis Primary Impression: Alcohol intoxication Qualified Codes: F10.920 - Alcohol use, unspecified with intoxication, uncomplicated Additional Impression: Dizziness Patient Instructions: Alcohol Intoxication (ED), General Instructions Additional Instructions: Avoid alcohol use. Follow-up with her doctors. Return to the ED as needed for any worsening symptoms. Disposition: 01 DISCHARGE HOME Condition: Stable Violeta Montaño MD Dec 11, 2017 16:55
--- NOTE | 2017-12-12 14:40 | EKG ---
Date Performed: 12/11/2017 Time Performed: 15:25:42 PTAGE: 62 years EKG: Sinus rhythm NORMAL ECG Compared to PREVIOUS TRACING sinus tachycardia has resolved. The right bundle branch block has resol dionne. The nonspecific T wave changes have resolved. Significant serial changes have occurred. PREVIOUS TRACIN04/08/2017 07.42 DOCTOR: Magnolia Schuler Interpretating Date/Time 12/12/2017 14:39:50
== END 2017-12-11 17:26 | disposition home or self-care (01) ==
LOC: PHED 13:52
DX: F10.129 Alcohol abuse with intoxication, unspecified (principal); Y90.8 Blood alcohol level of 240 mg/100 ml or more; I10 Essential (primary) hypertension; D69.6 Thrombocytopenia, unspecified; K74.60 Unspecified cirrhosis of liver; I85.10 Secondary esophageal varices without bleeding; Z87.442 Personal history of urinary calculi
CPT/HCPCS: 70450; 80053; 80307; 82140; 84484; 85025; 85610; 85730; 93005; 99285

== ENCOUNTER 2017-12-24 14:02 | Inpatient (IN) | payer BC ==
[~2017-12-24] VITALS: Ht 172.7 cm; Wt 94.2 kg
[2017-12-24] VITALS (54 sets, daily range): BP systolic 82–184; BP diastolic 48–88; PULSE 60–109; RESP 17–24; TEMP 97.4–98.2; O2SAT 97–100
[~2017-12-24 14:02] MED LIST changes: -CALCTAB PO; -CHEL50TA PO; +LACT10SO PO; -LEVA750T9 PO; -MULT1TAB PO; -VITA80003 PO
--- NOTE | 2017-12-24 14:26 | PD ---
HPI Chief Complaint: GI Complaint Time Seen by Provider: 14:25 Travel History International Travel<30 days: No Contact w/Intl Traveler<30days: No Traveled to known affect area: No History of Present Illness HPI 62-year-old male came to the emergency room with history of vomiting blood today. Patient drinks alcohol and says that he had 2 beers this morning. He has history of portal hypertension and esophageal varices secondary to his drinking. Drinks because his and he is sad. His friend found him in the bathroom with the blood around him and called 911. When I went to see him his blood pressure was 93 systolic. He was awake and talking and answering questions appropriately. He says that his last hospitalization and blood transfusion was 4-5 months ago at the main hospital for the exact same reason. Patient denies of any abdominal pain. [facility] Past Medical History Narrative Medical List of his past medical, surgical, social and family history is reviewed from the nursing note. Hx Anticoagulant Therapy: No Anemia: Yes (thrombocytopenia ) Asthma: No Autoimmune Disease: No Anxiety: No Depression: No Heart Rhythm Problems: No Cancer: No Cardiovascular Problems: Yes (HTN ) High Cholesterol: No Chest Pain: No Congestive Heart Failure: No Cirrhosis: Yes (Cirrhosis of the liver) COPD: No Cerebrovascular Accident: No Diabetes: No Diminished Hearing: No Endocrine: No Gastrointestinal Disorders: Yes (hx of esophageal varices) GERD: No Genitourinary: Yes Headaches: No Hiatal Hernia: No Heparin Induced Thrombocytopen: No Hypertension: Yes Immune Disorder: No Implanted Vascular Access Dvce: No Kidney Stones: Yes (2009) Musculoskeletal: No Neurologic: Yes Psychiatric: No Reproductive: No Respiratory: Yes (Rt chest tubes) Migraines: No Renal Failure: No Seizures: No Sickle Cell Disease: No Sleep Apnea: No Thyroid Disease: No Ulcer: No Influenza Vaccination: Yes ?: Not Past Surgical History Surgical History: No Previous Surgery AICD: No Arteriovenous Shunt: No Cardiac Surgery: No Ear Surgery: No Endocrine Surgery: No Eye Surgery: No Genitourinary Surgery: No Gynecologic Surgery: No Insulin Pump: No Joint Replacement: No Neurologic Surgery: No Oral Surgery: No Pacemaker: No Thoracic Surgery: Yes (right side chest tubes) Other Surgery: Yes (R ELBOW BONE SPUR REMOVAL, Rt chest tubes for pleural effusion Aug 2016) Social History Alcohol Use: Yes Tobacco Use: No Substance Use: No Allergies-Medications (Allergen,Severity, Reaction): Coded Allergies: No Known Allergies (Unverified Allergy, Unknown, 12/24/17) Comments No known drug allergies. Reported Meds & Prescriptions Reported Meds & Active Scripts Active Pantoprazole (Pantoprazole Sodium) 40 Mg Tab 40 Mg PO DAILY Aldactone (Spironolactone) 50 Mg Tab 50 Mg PO BID@ Reported [Lactulose] Unknown Dose PO TID Narrative Medication List of his home medications reviewed from the nursing note. Review of Systems Except as stated in HPI: all other systems reviewed are Neg Gastrointestinal: Positive: Hematemesis Physical Exam Narrative GENERAL: Awake, alert, moderate distress SKIN: Focused skin assessment warm/dry. Pale, jaundice HEAD: Atraumatic. Normocephalic. EYES: Pupils equal and round. Icterus. No injection or drainage. ENT: No nasal bleeding or discharge. Mucous membranes pink and moist. NECK: Trachea midline. No JVD. CARDIOVASCULAR: Regular rate and rhythm. No murmur appreciated. RESPIRATORY: No accessory muscle use. Clear to auscultation. Breath sounds equal bilaterally. GASTROINTESTINAL: Abdomen soft, non-tender, nondistended. Hepatic and splenic margins not palpable. MUSCULOSKELETAL: No obvious deformities. No clubbing. No cyanosis. No edema. NEUROLOGICAL: Awake and alert. No obvious cranial nerve deficits. Motor grossly within normal limits. Normal speech. PSYCHIATRIC: Appropriate mood and affect; insight and judgment normal. Data Data Last Documented VS Vital Signs Date Time Temp Pulse Resp B/P (MAP) Pulse Ox O2 Delivery O2 Flow Rate FiO2 12/24/17 15:40 87 20 90/51 (64) 100 Nasal Cannula 2.00 12/24/17 14:11 98.1 Orders Orders Complete Blood Count With Diff (12/24/17 14:32) Comprehensive Metabolic Panel (12/24/17 14:32) Prothrombin Time / Inr (Pt) (12/24/17 14:32) Alcohol (Ethanol) (12/24/17 14:32) Type And Screen (12/24/17 14:32) Ecg Monitoring (12/24/17 14:32) Iv Access Insert/Monitor (12/24/17 14:32) Oximetry (12/24/17 14:32) Sodium Chlor 0.9% 1000 Ml Inj (Ns 1000 M (12/24/17 14:32) Sodium Chloride 0.9% Flush (Ns Flush) (12/24/17 14:45) Sodium Chlorid 0.9%... W/Octreotide Inj (12/24/17 14:32) Sodium Chloride 0.9... W/Pantoprazole In (12/24/17 14:32) Sodium Chloride 0.9... W/Pantoprazole In (12/24/17 14:32) Octreotide Inj (Sandostatin Inj) (12/24/17 14:45) Red Blood Cells (Rbc) (12/24/17 15:31) Platelet Pheresis (12/24/17 15:31) Blood Product Administration (12/24/17 15:31) Sodium Chlor 0.9% 250 Ml Inj (Ns 250 Ml (12/24/17 15:45) Admit To Inpatient (12/24/17 ) Vital Signs (Adult) Q4H (12/24/17 15:39) Activity Oob Ad Suzie (12/24/17 15:39) Receiving Lead / Telemetry JADA.Q8H (12/24/17 15:39) Intake + Output JADA.QSHIFT (12/24/17 15:39) Sodium Chlor 0.9% 1000 Ml Inj (Ns 1000 M (12/24/17 15:39) Thiamine Inj (Thiamine Inj) (12/24/17 18:00) Consult Gastroenterology (12/24/17 ) Inpatient Certification (12/24/17 ) ^ Fall Precautions (12/24/17 15:41) Vital Signs (Adult) Q4H (12/24/17 15:41) Bedside Glucose JADA.CSUGAR (12/24/17 15:41) Intake + Output JADA.QSHIFT (12/24/17 15:41) Flumazenil Inj (Romazicon Inj) (12/24/17 15:45) Lorazepam (Ativan) (12/24/17 15:45) Lorazepam Inj (Ativan Inj) (12/24/17 15:45) Lorazepam (Ativan) (12/24/17 15:45) Lorazepam Inj (Ativan Inj) (12/24/17 15:45) Lorazepam Inj (Ativan Inj) (12/24/17 15:45) Lorazepam Inj (Ativan Inj) (12/24/17 15:45) Complete Blood Count With Diff (12/25/17 06:00) Admit Order (Ed Use Only) (12/24/17 15:40) Creatine Kinase (Cpk) (12/24/17 14:15) Magnesium (Mg) (12/24/17 14:15) Red Blood Cells (Rbc) (12/24/17 15:31) Labs Laboratory Tests Test 12/24/17 01:05 12/24/17 14:15 Nasal Screen MRSA (PCR) MRSA NOT DETECTED White Blood Count 3.8 TH/MM3 Red Blood Count 1.94 MIL/MM3 Hemoglobin 7.1 GM/DL Hematocrit 21.5 % Mean Corpuscular Volume 110.7 FL Mean Corpuscular Hemoglobin 36.8 PG Mean Corpuscular Hemoglobin Concent 33.2 % Red Cell Distribution Width 16.6 % Platelet Count 38 TH/MM3 Mean Platelet Volume 7.5 FL Neutrophils (%) (Auto) 63.6 % Lymphocytes (%) (Auto) 20.4 % Monocytes (%) (Auto) 12.0 % Eosinophils (%) (Auto) 3.2 % Basophils (%) (Auto) 0.8 % Neutrophils # (Auto) 2.4 TH/MM3 Lymphocytes # (Auto) 0.8 TH/MM3 Monocytes # (Auto) 0.5 TH/MM3 Eosinophils # (Auto) 0.1 TH/MM3 Basophils # (Auto) 0.0 TH/MM3 CBC Comment AUTO DIFF Differential Comment AUTO DIFF CONFIRMED Prothrombin Time 19.7 SEC Prothromb Time International Ratio 1.9 RATIO Blood Urea Nitrogen 8 MG/DL Creatinine 0.64 MG/DL Random Glucose 105 MG/DL Total Protein 5.7 GM/DL Albumin 1.9 GM/DL Calcium Level 7.3 MG/DL Magnesium Level 1.6 MG/DL Alkaline Phosphatase 83 U/L Aspartate Amino Transf (AST/SGOT) 50 U/L Alanine Aminotransferase (ALT/SGPT) 21 U/L Total Bilirubin 4.3 MG/DL Sodium Level 143 MEQ/L Potassium Level 3.8 MEQ/L Chloride Level 106 MEQ/L Carbon Dioxide Level 29.8 MEQ/L Anion Gap 7 MEQ/L Estimat Glomerular Filtration Rate 127 ML/MIN Protein Corrected Calcium 8.1 MG/DL Total Creatine Kinase 51 U/L Ethyl Alcohol Level 234 MG/DL MDM Medical Decision Making Medical Screen Exam Complete: Yes Emergency Medical Condition: Yes Medical Record Reviewed: Yes Differential Diagnosis Variceal bleeding, upper GI bleed Narrative Course 3:48 PM patient was given IV Protonix bolus and drip and IV Sandostatin bolus and drip soon after I saw him. I was called in the room a little while ago by the nurse because he had another bloody emesis. When I went in the room his blood pressure was 87 systolic. He was still awake and answering questions. He has stopped vomiting. I was told by the nurse that the Protonix and Sandostatin boluses were given and the drips were getting home. I ordered a second fluid bolus. Blood pressure brought recycling came up to 122 systolic. CBC is back and based on the hemoglobin I ordered 2 units of PRBC. His platelet count was 38. I discussed the case with Dr. Richards who is on-call for GI. He wanted the patient to get platelet transfusion in addition. He was okay with patient stating in [place] ICU. Once a scope him tomorrow. I discussed the case with the hospitalist who has accepted the patient. Critical Care Narrative Aggregate critical care time was 60 minutes. Time to perform other separately billable procedures was not included in the critical care time. My time did not include minutes spent treating any other patients simultaneously or on activities that did not directly contribute to the patient's treatment. The services I provided to this patient were to treat and/or prevent clinically significant deterioration that could result in: Upper GI bleed, Protonix bolus and drip, Sandostatin bolus and drip, PRBC transfusion, platelet transfusion, fluid resuscitation I provided critical care services requiring my management, as noted below: Chart data review, documentation time, medication orders and management, vital sign assessments/reviewing monitor data, ordering and reviewing lab tests, ordering and interpreting/reviewing x-rays and diagnostic studies, care of the patient and discussion of the patient with the admitting physicians. Procedures EKG Prior to Arrival: No Physician Communication Physician Communication Dr. Richards Diagnosis Primary Impression: Upper GI bleed Additional Impression: Portal hypertension Admitting Information Admitting Physician Requests: Admit Che Maldonado MD Dec 24, 2017 14:26
[2017-12-24] MEDS ORDERED: PANTOPRAZOLE INJ 80 MG in SODIUM CHLORIDE 0.9% INJ 35 ML IV ONE (14:32)
[2017-12-24] MEDS ORDERED: OCTREOTIDE INJ 500 MCG in SODIUM CHLORID 0.9% 500 ML INJ 500 ML IV SCH (14:32)
[2017-12-24] MEDS ORDERED: SODIUM CHLOR 0.9% 1000 ML INJ 1,000 ML IV SCH ×2 (14:32→17:45)
[2017-12-24] MEDS ORDERED: OCTREOTIDE INJ 100 MCG/ML VIAL IV PUSH ONE (14:45)
[2017-12-24] MEDS ORDERED: SODIUM CHLORIDE 0.9% FLUSH 10 ML FLUSH IVF PRN (14:45)
[2017-12-24 15:03] LABS: AUTOMATED NEUTROPHIL # 2.4 TH/MM3 (1.8-7.7); BASOPHIL % 0.8 % (0.0-2.0); EOSINOPHIL # 0.1 TH/MM3 (0-0.4); EOSINOPHIL % 3.2 % (0.0-4.0); HEMATOCRIT 21.5 % (39.0-51.0); HEMOGLOBIN 7.1 GM/DL (13.0-17.0); LYMPH % 20.4 % (9.0-44.0); LYMPHOCYTE # 0.8 TH/MM3 (1.0-4.8); MEAN CELL VOLUME 110.7 FL (80.0-100.0); MEAN CORPUSCULAR HEMOGLOBIN 36.8 PG (27.0-34.0); MEAN CORPUSCULAR HGB CONC 33.2 % (32.0-36.0); MEAN PLATELET VOLUME 7.5 FL (7.0-11.0); MONOCYTE # 0.5 TH/MM3 (0-0.9); NEUT % 63.6 % (16.0-70.0); PLATELET COUNT 38 TH/MM3 (150-450); RED BLOOD COUNT 1.94 MIL/MM3 (4.50-5.90); RED CELL DISTRIBUTION WIDTH 16.6 % (11.6-17.2); WHITE BLOOD COUNT 3.8 TH/MM3 (4.0-11.0)
[2017-12-24 15:19] LABS: INTERNATIONAL NORMALIZED RATIO 1.9 RATIO; PROTHROMBIN TIME - PATIENT 19.7 SEC (9.8-11.6)
[2017-12-24 15:29] LABS: ALBUMIN 1.9 GM/DL (3.4-5.0); BICARBONATE 29.8 MEQ/L (21.0-32.0); CALCIUM 7.3 MG/DL (8.5-10.1); CALCIUM-PROTEIN CORRECTED 8.1 MG/DL (8.5-10.1); CREATININE 0.64 MG/DL (0.60-1.30); TOTAL BILIRUBIN ADULT 4.3 MG/DL (0.2-1.0); TOTAL PROTEIN 5.7 GM/DL (6.4-8.2)
[2017-12-24] MEDS: PANTOPRAZOLE INJ 80 MG in SODIUM CHLORIDE 0.9% INJ 100 ML IV SCH (15:38)
[2017-12-24] MEDS: SODIUM CHLOR 0.9% 1000 ML INJ 1,000 ML IV SCH (15:39)
[2017-12-24] MEDS ORDERED: LORazepam 2 MG TAB PO PRN (15:45)
[2017-12-24] MEDS ORDERED: LORazepam 2 MG/ML VIAL IV PUSH PRN ×4 (15:45)
[2017-12-24] MEDS ORDERED: LORazepam 1 MG TAB PO PRN (15:45)
[2017-12-24] MEDS ORDERED: SODIUM CHLOR 0.9% 250 ML INJ 250 ML IV ONE (15:45)
[2017-12-24] MEDS ORDERED: FLUMAZENIL 0.5 MG/5 ML VIAL IV PUSH PRN (15:45)
[2017-12-24] MEDS ORDERED: PROMETHAZINE INJ 25 MG/ML VIAL IM ONE (16:30)
[2017-12-24] MEDS ORDERED: SODIUM CHLOR 0.9% 1000 ML INJ 1,000 ML IV ONE ×5 (16:30→17:45)
--- NOTE | 2017-12-24 16:54 | HHI.HP ---
HPI Service [facility] Primary Care Physician Juan Manuel Parisi MD Admission Diagnosis upper GI bleed, portal hypertension Diagnoses: Chief Complaint: vomiting blood Travel History International Travel<30 Days: No Contact w/Intl Traveler <30 Da: No Traveled to Known Affected Are: No History of Present Illness 63-year-old white male admitted for suspected esophageal varices bleeding. Patient was in his usual state of health until sometime yesterday evening when he began experiencing some nausea. This morning he drank 2 beers and then later on at some point when he went to the restroom he had a mechanical fall and thinks he struck his head on something, not sure exactly what) then experienced his nausea again and actually vomited a "good amount of blood." He had a friend that came over who checks on him regularly and saw him and stated he was in and decided to call the ambulance. Patient denies experiencing any chest pain. He denies any changes in his stool or bowel habits. Emergency room physician for me that he did vomit some blood in the ER, and the nurse told me vomited almost 300 cc of blood. He had been started on octreotide and Protonix. The ER doctor also told me that his blood pressure did temporarily dropped to the 80s systolic and came up to the 100 systolic. The nurse then later on informing that his pressure again dropped to the 80s and now is in the 90 systolic while he's been receiving almost 2 L of normal saline boluses. Medical history includes that the patient actually had been admitted previously for bleeding esophageal varices a few months ago in 2017. Patient states he takes his lactulose daily. Social history: Patient states he drinks about 3-4 beers a day, says he's been drinking since his a couple of months ago. Prior to that he says he had not been drinking for a long time. No family history of esophageal cancer or liver disease. Review of Systems Except as stated in HPI: all other systems reviewed are Neg Past Family Social History Allergies: Coded Allergies: No Known Allergies (Unverified Allergy, Unknown, 12/24/17) Physical Exam Vital Signs Vital Signs Date Time Temp Pulse Resp B/P (MAP) Pulse Ox O2 Delivery O2 Flow Rate FiO2 12/24/17 16:24 87 20 94/54 (67) 12/24/17 16:18 88 20 102/58 (73) 99 Nasal Cannula 2.00 12/24/17 16:11 88 20 96/51 (66) 99 Nasal Cannula 2.00 12/24/17 16:04 88 20 93/53 (66) 99 Nasal Cannula 2.00 12/24/17 15:55 86 20 85/48 (60) Nasal Cannula 12/24/17 15:40 87 20 90/51 (64) 100 Nasal Cannula 2.00 12/24/17 15:15 88 20 91/56 (68) 100 Nasal Cannula 2.00 12/24/17 14:25 99 Nasal Cannula 2.00 12/24/17 14:11 98.1 90 20 98/60 (73) 97 Physical Exam VS: afebrile GENERAL: Jaundiced appearing white male lying in bed, no acute distress, well- nourished, awake. His patient down is covered with some blood. SKIN: Appears jaundiced EYES: Has very obvious scleral icterus, no conjunctivitis ENT: No nasal bleeding or discharge. Mucous membranes pink and moist. CARDIOVASCULAR: Regular rate and rhythm. no murmurs RESPIRATORY: No accessory muscle use. Clear to auscultation. Breath sounds equal bilaterally. GASTROINTESTINAL: Abdomen soft, it is mild to moderately distended diffusely with no jocelyne tenderness to palpation. No asterixis on exam. Extremities: No clubbing, cyanosis, or edema. No obvious deformities. MUSCULOSKELETAL: adequate muscle bulk and tone for age and habitus NEUROLOGICAL: Awake and alert. No obvious cranial nerve deficits. No facial droop nor slurred speech noted. PSYCHIATRIC: Appropriate mood and affect; insight and judgment normal. Pleasant mood Laboratory Laboratory Tests Test 12/24/17 14:15 White Blood Count 3.8 Red Blood Count 1.94 Hemoglobin 7.1 Hematocrit 21.5 Mean Corpuscular Volume 110.7 Mean Corpuscular Hemoglobin 36.8 Mean Corpuscular Hemoglobin Concent 33.2 Red Cell Distribution Width 16.6 Platelet Count 38 Mean Platelet Volume 7.5 Neutrophils (%) (Auto) 63.6 Lymphocytes (%) (Auto) 20.4 Monocytes (%) (Auto) 12.0 Eosinophils (%) (Auto) 3.2 Basophils (%) (Auto) 0.8 Neutrophils # (Auto) 2.4 Lymphocytes # (Auto) 0.8 Monocytes # (Auto) 0.5 Eosinophils # (Auto) 0.1 Basophils # (Auto) 0.0 CBC Comment AUTO DIFF Differential Comment AUTO DIFF CONFIRMED Prothrombin Time 19.7 Prothromb Time International Ratio 1.9 Blood Urea Nitrogen 8 Creatinine 0.64 Random Glucose 105 Total Protein 5.7 Albumin 1.9 Calcium Level 7.3 Alkaline Phosphatase 83 Aspartate Amino Transf (AST/SGOT) 50 Alanine Aminotransferase (ALT/SGPT) 21 Total Bilirubin 4.3 Sodium Level 143 Potassium Level 3.8 Chloride Level 106 Carbon Dioxide Level 29.8 Anion Gap 7 Estimat Glomerular Filtration Rate 127 Protein Corrected Calcium 8.1 Ethyl Alcohol Level 234 Result Diagram: 12/24/17 1415 12/24/17 1415 Caprini VTE Risk Assessment Caprini VTE Risk Assessment: Mod/High Risk (score >= 2) Caprini Risk Assessment Model Point Value = 1 Point Value = 2 Point Value = 3 Point Value = 5 Age 41-60 Minor surgery BMI > 25 kg/m2 Swollen legs Varicose veins or History of unexplained or recurrent spontaneous Oral contraceptives or hormone replacement Sepsis (< 1 month) Serious lung disease, including pneumonia (< 1 month) Abnormal pulmonary function Acute myocardial infarction Congestive heart failure (< 1 month) History of inflammatory bowel disease Medical patient at bed rest Age 61-74 Arthroscopic surgery Major open surgery (> 45 min) Laparoscopic surgery (> 45 min) Malignancy Confined to bed (> 72 hours) Immobilizing plaster cast Central venous access Age >= 75 History of VTE Family history of VTE Factor V Leiden Prothrombin [id number] Lupus anticoagulant Anticardiolipin antibodies Elevated serum homocysteine Heparin-induced thrombocytopenia Other congenital or acquired thrombophilia Stroke (< 1 month) Elective arthroplasty Hip, pelvis, or leg fracture Acute spinal cord injury (< 1 month) Prophylaxis Regimen Total Risk Factor Score Risk Level Prophylaxis Regimen 0-1 Low Early ambulation 2 Moderate Order ONE of the following: *Sequential Compression Device (SCD) *Heparin 5000 units SQ BID 3-4 Higher Order ONE of the following medications: *Heparin 5000 units SQ TID *Enoxaparin/Lovenox 40 mg SQ daily (WT < 150 kg, CrCl > 30 mL/min) *Enoxaparin/Lovenox 30 mg SQ daily (WT < 150 kg, CrCl > 10-29 mL/min) *Enoxaparin/Lovenox 30 mg SQ BID (WT < 150 kg, CrCl > 30 mL/min) AND/OR *Sequential Compression Device (SCD) 5 or more Highest Order ONE of the following medications: *Heparin 5000 units SQ TID (Preferred with Epidurals) *Enoxaparin/Lovenox 40 mg SQ daily (WT < 150 kg, CrCl > 30 mL/min) *Enoxaparin/Lovenox 30 mg SQ daily (WT < 150 kg, CrCl > 10-29 mL/min) *Enoxaparin/Lovenox 30 mg SQ BID (WT < 150 kg, CrCl > 30 mL/min) AND *Sequential Compression Device (SCD) Assessment and Plan Assessment and Plan Transient Hypotension - risk of hemorrhagic shock with bleed, additional NS bolus ordered w/ admission to ICU followed by aggressive IVFs. PRBCs and platelets ordered by ER already to be transfused Suspected upper GI bleed secondary to esophageal varices - Case discussed with ER doctor who discussed with GI, apparently it is located to keep the patient at [place], I will admit the patient to the ICU for closer monitoring. - Protonix and octreotide drips infusing - Telemetry with fall precautions Nausea vomiting - Most likely secondary to veisalgia (from ETOH use) and varices - Phenergan 12.5 mg IM prn nausea Heavy alcohol use - Blood level is over 200, starting thiamine injection as well as Librium taper - will obtain CK and Mg to ensure electrolytes are stable as well as no risk of rhabdo Elevated bilirubin - Most likely from hepatic failure given that the patient's INR is 1.9. Continue lactulose po as tolerated Neutropenia - Most likely secondary to myelosuppression secondary to alcohol use, monitor with CBC in a.m. scds given hemorrhagic risk Critical care Addendum: Got paged by nursing that the patient's systolic blood pressures in the 60s despite having received 3 L of normal saline bolus. Ordered immediate reinstitution of further boluses of normal saline. Patient examined, says he feels "not good." Appears very pale, but in no acute distress. Heart rate is in the 90s regular rhythm on telemetry saturations are 100% on supplement oxygen. Discussed case w/ Dr. Casey who will come see the patient since he may not be suitable for transport at this time. Discussed case with GI who relayed that patient is not a candidate for scoping given low platelets at 30k at this time. Patient's blood pressure eventually did rise up to the 90s systolic with a map 70s midway through 4th bolus. Blood bank at this time has completed type and screen and crossmatch, dry chain puller is en route to [facility] to pickup blood. Emergency transfusion ordered for RBC, FFP, and platelets. Aggregate critical care time was 35 minutes spent at bedside or in the hospital p[facility]. Time to perform other separately billable procedures was not included in the critical care time. My time did not include minutes spent treating any other patient simultaneously or on activities that did not directly To be due to the patient' s treatment. The services are provided to this patient were to treat and/or prevent clinically significant deterioration that could result in organ failure , , disability, or imminent clinical deterioration in the patient's condition. I provided critical care services requiring my management as noted above. Physician Certification 2 Midnight Certification Type: Admission for Inpatient Services Order for Inpatient Services The services are ordered in accordance with Medicare regulations or non- Medicare payer requirements, as applicable. In the case of services not specified as inpatient-only, they are appropriately provided as inpatient services in accordance with the 2-midnight benchmark. Estimated LOS (days): 3 3 days is the estimated time the patient will need to remain in the hospital, assuming treatment plan goals are met and no additional complications. Post-Hospital Plan: Not yet determined Fabian Roman MD Dec 24, 2017 16:54
[2017-12-24] MEDS ORDERED: PROMETHAZINE INJ 25 MG/ML VIAL IM PRN (17:00)
[2017-12-24 17:34] LABS: MAGNESIUM 1.6 MG/DL (1.5-2.5)
[2017-12-24] MEDS ORDERED: NOREPINEPHRINE-DEXTROSE DRIP 250 ML IV ONE (18:00)
[2017-12-24] MEDS ORDERED: THIAMINE INJ 100 MG in SODIUM CHLORIDE 0.9% INJ 100 ML IV SCH (18:00)
[2017-12-24] MEDS ORDERED: TERBUTALINE INJ 1 MG/ML AMP SQ PRN (18:00)
[2017-12-24] MEDS ORDERED: ETOMIDATE 40 MG/20 ML VIAL IV PUSH ONE (18:15)
--- NOTE | 2017-12-24 18:18 | MB ---
cc: BOGDAN MUHAMMAD M.D. DATE OF CONSULTATION: 12/24/2017. REASON FOR CONSULTATION: GI bleed. DATE OF : 1955. REFERRING PHYSICIAN: Dr. Roman. HISTORY OF PRESENT ILLNESS: Thank you for the consultation. This is a 62-year-old gentleman who is known to us from before. The patient has significant cirrhosis with esophageal varices and multiple episodes of GI bleed. He usually ends up either with banding or injection, last time because the bleeding was at the EG junction. The patient supposedly was off alcohol but then his last year and he started drinking heavily again. He was starting to have coffee-ground emesis and he vomited about 300 mL of blood according to him and he was dizzy, lightheaded when he first came. Currently the patient is laying in bed in the intensive care unit. He seems to be comfortable but he has a bag next to him which has some bloody emesis. REVIEW OF SYSTEMS: All twelve-point negative except for the history of present illness. ALLERGIES: NO KNOWN DRUG ALLERGIES. PAST MEDICAL HISTORY: 1. Significant for cirrhosis. 2. He has anemia. 3. Thrombocytopenia. 4. History of varices. 5. He has history of chest tube in the past. PAST SURGICAL HISTORY: He has no surgery in the past. SOCIAL HISTORY: Negative for tobacco or drugs. Positive for heavy alcohol. PHYSICAL EXAMINATION: GENERAL: The patient is lying in bed, seems to be comfortable at this time. VITAL SIGNS: The patient is hypertensive. He was resuscitated and he is tachycardiac. HEAD, EYES, EARS, NOSE, THROAT: Pupils are round and reactive to light. The patient has scleral icterus. Jaundice. NECK: The neck is supple. CHEST: Clear at this time. CARDIAC: Tachycardia. ABDOMEN: Distended with ascites. EXTREMITIES: +1 edema. NEUROLOGIC: Neurologically intact. Alert and oriented. PSYCHIATRIC: Psychologically appropriate. LABORATORY DATA: White count 3.8, hemoglobin 7.1, platelets 38,000. INR 1.9. Total bilirubin 4.3, AST 50, ALT 21, alkaline phosphatase 83, albumin 1.9 ASSESSMENT AND PLAN: This is a 62-year-old gentleman with GI bleed most likely variceal bleed. The patient was started already on Octreotide and Protonix drips per our conversation with the emergency room. The patient will be admitted to the intensive care unit. I discussed the case with the cardiac technologist. The patient will be intubated to protect his airway. He has low platelets and low hemoglobin with hypotension. He is not stable at this time for procedure but once we stabilize him and he receives the platelets and fresh frozen plasma and blood products, we will do an upper endoscopy. The patient is very high risk for continuous bleeding. He is aware. He is questioning if he even wants to do this but he is agreeable to have it done and will sign the consent before intubating him and will proceed accordingly. MD ANJUM Juarez/MARICEL /5:53 PM /6:07 PM
[2017-12-24] MEDS ORDERED: ROCURONIUM INJ 50 MG/5 ML VIAL IV ONE (18:30)
--- NOTE | 2017-12-24 19:02 | PD.PROCEDR ---
Procedure Note Procedure DATE: CENTRAL LINE PLACEMENT: Left IJ vein. Ultrasound-guided INDICATION: Central venous access CONSENT Informed consent for procedure was obtained from daughter Fabi Nidaye DESCRIPTION OF THE PROCEDURE The patient was placed in supine position. The skin was cleansed with Chloraprep. Additional barrier precautions included large sterile drape, sterile gloves, sterile gown, face mask, and hat. 1 % lidocaine was used for local anesthesia. Under direct ultrasound guidance and on initial attempt, the vein was accessed with an introducer needle. The guide wire was advanced and the tract was dilated. Using Seldinger technique a 7 Occitan 20 cm antimicrobial coated triple-lumen catheter was advanced to a depth of 20 centimeters. The guide wire was removed. All ports had good return of dark venous blood and flushed easily with saline. The central line was secured with 2.0 silk. A sterile dressing with antibiotic disc was applied. ESTIMATED BLOOD LOSS: Minimal COMPLICATIONS: No apparent complications. STAT chest x-ray pending at time of dictation Ryley Casey MD Dec 24, 2017 19:02
--- NOTE | 2017-12-24 19:03 | PD.PROCEDR ---
Procedure Note Procedure DATE: 12/24/2017 PROCEDURE: Orotracheal intubation INDICATION: Upper GI bleed/respiratory failure DETAILS OF PROCEDURE The patient was placed in optimal position and preoxygenated with 100% FiO2 via bag valve mask. At the start oxygen saturation was 100%. The patient was administered 20 milligrams etomidate IV and 50 milligrams rocuronium IV. I entered the oropharynx with a size 3 laryngoscope blade and obtained a grade 2 view of the airway. On single attempt a size 7.5 cuffed endotracheal tube was passed through the vocal cords. Correct tube location was confirmed with end tidal CO2 detector and by auscultating over bilateral lung salazar. The endotracheal tube was secured with adhesive tape at a depth of 24 cm at the lips. The patient was connected to the ventilator. The patient tolerated the procedure well without any apparent complications. Oxygen saturations were maintained greater than 95% all times. STAT chest x-ray pending at time of dictation. Ryley Casey MD Dec 24, 2017 19:03
--- NOTE | 2017-12-24 19:04 | PD.CONS ---
[facility] Service Critical Care Medicine Consult Requested By Dr. Roman Reason for Consult Upper GI bleed/hemodynamic instability Primary Care Physician Juan Manuel Parisi MD History of Present Illness 62 yo male. Date of admission 12/24/2017. Consultation 12/24/2017. Past medical history includes liver cirrhosis with recurrent upper GI bleeding. He was diagnosed 04/11 with liver cirrhosis. He states he quit drinking alcohol that time he was followed at [facility] for liver transplantation evaluation. April 2017, upper GI bleeding - distal Russell's esophagus and grade 1 varices. Stomach no bladder ulcers. Mucosa does not appear edematous duodenum. Status post angiogram of the celiac, SMA revealed no hemorrhagic focus identified. No further bleeding. Patient was again admitted 08/13 for upper GI bleed. EGD revealed grade 1-2 septal varices in no active bleeding. Gastric varices in the fundus just 2 cm GE junction actively squirting blood. Banding not possible so injected with 6 cc of epinephrine to stop the bleeding. Large clots and stomach. Remain intubated on octreotide and Protonix drips. Recommended if continued bleeding need to consider for TIPS. Most recently was admitted December 11, 2017 with alcohol toxicity. His has recently and he has drinking alcohol again. His alcohol levels currently 234. He presented today with upper GI bleeding. He is noted to be pancytopenic in with a white blood cell count of 3.8. Hemoglobin 7.1 and platelets of 30. INR is 1.9. AST is elevated. Alcohol level is 234. Patient received 6 L normal saline was started on a Protonix and octreotide drip. He remained hypotensive and peripheral vasopressors were started. Solar Field Service Technician was consulted along with GI. Due to the upper GI bleed decision was made to secure the airway with oral tracheal intubation and placement of central line to receive rapid transfusion. I discussed this with daughter Fabi Ndiaye [phone] and she is in agreement with aggressive plans at the present time. I described to her d- dimer nature of his current clinical situation and she wished to be made aware of any medical decisions that need to be made. Michelle did make her the healthcare proxy at this time. 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 Father of heart failure age 63 Social History Denies tobacco. EtOH level chronic to 34. Documented quit from 04/11 to 08/13? No documentation of illicit drug use Physical Exam Vital Signs Vital Signs Date Time Temp Pulse Resp B/P (MAP) Pulse Ox O2 Delivery O2 Flow Rate FiO2 12/24/17 18:30 100 100 12/24/17 16:52 82 20 89/54 (66) 100 Nasal Cannula 2.00 12/24/17 16:24 87 20 94/54 (67) 12/24/17 16:18 88 20 102/58 (73) 99 Nasal Cannula 2.00 12/24/17 16:11 88 20 96/51 (66) 99 Nasal Cannula 2.00 12/24/17 16:04 88 20 93/53 (66) 99 Nasal Cannula 2.00 12/24/17 15:55 86 20 85/48 (60) Nasal Cannula 12/24/17 15:40 87 20 90/51 (64) 100 Nasal Cannula 2.00 12/24/17 15:15 88 20 91/56 (68) 100 Nasal Cannula 2.00 12/24/17 14:25 99 Nasal Cannula 2.00 12/24/17 14:11 98.1 90 20 98/60 (73) 97 Physical Exam GENERAL: 62 -year-old male currently orotracheally intubated SKIN: Warm and dry. No rash HEAD: Atraumatic. Normocephalic. EYES: Pupils equal and round about 3 mm bilaterally and reactive. Early scleral icterus. No injection or drainage. ENT: Blood from oral mucosa during intubation notice. Positive petechiae. NECK: Trachea midline. No JVD. CARDIOVASCULAR: Regular rate and rhythm. S1, S2. No S4. RESPIRATORY: No accessory muscle use. Clear to auscultation. Breath sounds equal bilaterally. GASTROINTESTINAL: Abdomen slightly taut, nontender. Hypoactive bowel sounds are appreciated. MUSCULOSKELETAL: Extremities with trace lower extremity edema. No obvious deformities. NEUROLOGICAL: Awake and alert. No obvious cranial nerve deficits. Motor grossly within normal limits. Five out of 5 muscle strength in the arms and legs. Normal speech prior to intubation. Laboratory Laboratory Tests Test 12/24/17 14:15 White Blood Count 3.8 Red Blood Count 1.94 Hemoglobin 7.1 Hematocrit 21.5 Mean Corpuscular Volume 110.7 Mean Corpuscular Hemoglobin 36.8 Mean Corpuscular Hemoglobin Concent 33.2 Red Cell Distribution Width 16.6 Platelet Count 38 Mean Platelet Volume 7.5 Neutrophils (%) (Auto) 63.6 Lymphocytes (%) (Auto) 20.4 Monocytes (%) (Auto) 12.0 Eosinophils (%) (Auto) 3.2 Basophils (%) (Auto) 0.8 Neutrophils # (Auto) 2.4 Lymphocytes # (Auto) 0.8 Monocytes # (Auto) 0.5 Eosinophils # (Auto) 0.1 Basophils # (Auto) 0.0 CBC Comment AUTO DIFF Differential Comment AUTO DIFF CONFIRMED Prothrombin Time 19.7 Prothromb Time International Ratio 1.9 Blood Urea Nitrogen 8 Creatinine 0.64 Random Glucose 105 Total Protein 5.7 Albumin 1.9 Calcium Level 7.3 Magnesium Level 1.6 Alkaline Phosphatase 83 Aspartate Amino Transf (AST/SGOT) 50 Alanine Aminotransferase (ALT/SGPT) 21 Total Bilirubin 4.3 Sodium Level 143 Potassium Level 3.8 Chloride Level 106 Carbon Dioxide Level 29.8 Anion Gap 7 Estimat Glomerular Filtration Rate 127 Protein Corrected Calcium 8.1 Total Creatine Kinase 51 Ethyl Alcohol Level 234 Result Diagram: 12/24/17 1415 12/24/17 1415 Septic Shock Reassessment Septic shock perfusion: reassessment completed Assessment and Plan Assessment and Plan Neuro/Psych: EtOH intoxication Currently on propofol/fentanyl drips for sedation/analgesia while intubated Goal of RA SS -2 Daily sedation vacation Ofirmev 1 g IV every 8 hours when necessary fever EtOH level was 234. Started on vitamin bag daily for 3 days and switch to thiamine 100 mg IV daily Follow-up on ammonia level. History of toxic metabolic encephalopathy secondary to elevated ammonia CV: Sinus tachycardia secondary to acute blood loss Currently on norepinephrine at 20 g per minute to maintain mean arterial pressure greater than 65 Status post 6 L prior to my involvement in this case normal saline. Follow-up on EKG Holding spironolactone 50 mg by mouth daily/home medication Resp: Acute hypoxemic respiratory failure History of loculated right pleural effusion status post right chest tube/Pleurx catheter PRVC 16/500/1/5/100 Ventilator bundle Albuterol/ipratropium aerosols every 6 hours with albuterol aerosols every 2 hours. Dyspnea Maintain head of bed at 30 Follow-up on chest x-ray and ABG post intubation GI: Recurrent upper GI bleeding - negative gastroduodenal artery evaluation 05/13 History of esophageal varices - grade 1-2. Most recently epinephrine injected Portal gastropathy Portal hypertension Splenomegaly EtOH cirrhosis History of Alicia-Dyson tear History of Russell's esophagus Currently nothing by mouth Currently on pantoprazole drip at 8 mg an hour and Sandostatin drip at 50 g an hour Start on ceftriaxone 1 g daily for upper GI bleed Reassess meld score in a.m. 12/[address] Marie. Plan on EGD in AM. Consent signed Currently on lactulose 30 cc daily. Follow-up ammonia level : Mcdonald catheter for accurate I's and O's in a critically ill patient Endo: Sliding-scale insulin with Accu-Cheks to maintain euglycemia/low regimen every 4 hours Renal: Creatinine currently within normal limits Monitor urine output Accurate I's and O's Heme: Pancytopenia - chronic secondary to hypersplenism secondary to liver cirrhosis Coagulopathy - secondary underlying liver disease Transfusing 2 FFP and 2 PRBCs currently. Along with one pack platelets Serial hemoglobins every [address] Hernandez and Narcisa for intermittent transfusions and Neupogen injections during prior hospitalizations ID: Monitor for infection On ceftriaxone for upper GI bleed MSK: PT evaluate and treat FEN: Hypocalcemia Replace electrolytes as clinically indicated Access - Utilize peripheral IV. Central line if indicated Prophylaxis - GI - pantoprazole drip/octreotide drip - DVT - SCD/pharmacological prophylaxis contraindicated with upper GI bleed Critical Care: The total critical care time was 65 minutes. Time to perform other separately billable procedures was not included in the critical care time. Code Status Full code Discussed Condition With Dr. Roman. Dr. Wilson. Fabi Ndiaye [id number]. Daughter Kvng wishes to be healthcare proxy. Care plan discussed with her and all questions answered. She wishes aggressive care this time. She was be kept aware of changes in his condition and appears to be open to palliative care if indicated Ryley Casey MD Dec 24, 2017 19:04
[2017-12-24] MEDS: fentaNYL DRIP 250 ML IV PRN (19:10)
[2017-12-24] MEDS: PROPOFOL 1000 MG/100 ML INJ 100 ML IV PRN ×2 (19:10→23:22)
[2017-12-24] MEDS ORDERED: MIDAZOLAM HCL 2 MG/2 ML VIAL IV PUSH PRN (19:15)
[2017-12-24] MEDS ORDERED: ONDANSETRON HCL 4 MG/2 ML VIAL IV PUSH PRN (19:15)
[2017-12-24] MEDS ORDERED: MISCELLANEOUS NURSING INFORMATION XX SCH (19:15)
[2017-12-24] MEDS ORDERED: CHLORHEXIDINE GLUCONATE 2 % 1 PACK (2 CLOTHS) TOP PRN (19:15)
[2017-12-24] MEDS: NOREPINEPHRINE INJ 4 MG in SODIUM CHLOR 0.9% 250 ML INJ 246 ML IV PRN ×2 (19:35→23:23)
--- NOTE | 2017-12-24 19:52 | RADRPT ---
EXAM DATE/TIME: 12/24/2017 19:30 [facility] COMPARISON: CHEST SINGLE AP, August 09, 2017, 4:35. INDICATIONS : Central line placement. MEDICAL HISTORY : Hypertension. Cirrhosis. anemia, esophageal varices SURGICAL HISTORY : chest tube ENCOUNTER: Initial ACUITY: 1 day PAIN SCORE: Non-responsive. LOCATION: Bilateral chest FINDINGS: Small effusion and mild consolidation seen in the right lung base. There is also mild perihilar infil trate on the left. No pneumothorax seen. Endotracheal tube tip is 4.2 cm above the misty. There is a left internal jugular central venous cat heter with tip in the superior vena cava. CONCLUSION: 1. Mild right base and left perihilar infiltrates. Also a small right pleural effusion. 2. Endotracheal tube tip a properly positioned. 3. Left IJ central venous catheter has its tip in the superior vena cava. No pneumothorax. Carlos Jerez MD on December 24, 2017 at 19:48 Board Certified Radiologist. This report was verified electronically.
[2017-12-24] MEDS ORDERED: LACTULOSE SYRUP 20 GM/30 ML CUP PO SCH (20:00)
[2017-12-24] MEDS: CHLORHEXIDINE 0.12% (ORAL KIT) 15 ML CUP MT SCH (20:00)
[2017-12-24] MEDS ORDERED: CALCIUM GLUCONATE INJ 2 GM in SODIUM CHLORIDE 0.9% INJ 100 ML IV ONE (20:00)
[2017-12-24] MEDS: MAGNESIUM SULFATE 1 GM PREMIX 100 ML IV SCH ×2 (21:00→23:02)
[2017-12-24] MEDS: SODIUM CHLORIDE 0.9% FLUSH 10 ML FLUSH IV FLUSH SCH (21:00)
[2017-12-24] MEDS ORDERED: PANTOPRAZOLE SODIUM 40 MG VIAL IV PUSH SCH (21:00)
[2017-12-24] MEDS ORDERED: MULTIVITAMIN INJ 10 ML, THIAMINE INJ 100 MG, FOLIC ACID INJ 1 MG in SODIUM CHLORID 0.9%... IV ONE (21:00)
[2017-12-24 22:00] LABS: HEMATOCRIT 23.2 % (39.0-51.0); HEMOGLOBIN 7.9 GM/DL (13.0-17.0)
[2017-12-24] MEDS: ARTIFICIAL TEARS OPTH SOLN 15 ML BTL EACH EYE SCH (22:00)
[2017-12-24] MEDS: RESP: ALBUTEROL 2.5 MG/IPRATROPIUM 0.5 MG NEB (SCH) INH (22:06)
[2017-12-24] MEDS: VASOPRESSIN INJ 40 UNITS in DEXTROSE 5% IN WATER 100ML INJ 98 ML IV SCH ×2 (22:58)
[2017-12-25] VITALS (130 sets, daily range): BP systolic 92–157; BP diastolic 51–81; PULSE 60–100; RESP 16–24; TEMP 96.9–98.8; O2SAT 94–100
[2017-12-25] MEDS: cefTRIAXone INJ 1,000 MG in SODIUM CHLORIDE 0.9% INJ 100 ML IV SCH ×2 (00:05→21:47)
[2017-12-25] MEDS: SODIUM CHLOR 0.9% 1000 ML INJ 1,000 ML IV SCH ×2 (01:39→11:39)
[2017-12-25 03:18] LABS: HEMATOCRIT 23.4 % (39.0-51.0)
[2017-12-25] MEDS: RESP: ALBUTEROL 2.5 MG/IPRATROPIUM 0.5 MG NEB (SCH) INH ×4 (03:21→20:48)
[2017-12-25] MEDS: PROPOFOL 1000 MG/100 ML INJ 100 ML IV PRN ×3 (03:46→16:59)
[2017-12-25] MEDS: PANTOPRAZOLE INJ 80 MG in SODIUM CHLORIDE 0.9% INJ 100 ML IV SCH ×3 (03:47→22:30)
[2017-12-25] MEDS: CHLORHEXIDINE GLUCONATE 2 % 1 PACK (2 CLOTHS) TOP SCH (03:47)
[2017-12-25] MEDS: ARTIFICIAL TEARS OPTH SOLN 15 ML BTL EACH EYE SCH ×3 (05:02→22:00)
[2017-12-25] MEDS: CHLORHEXIDINE 0.12% (ORAL KIT) 15 ML CUP MT SCH (05:03)
[2017-12-25] MEDS: OCTREOTIDE INJ 500 MCG in SODIUM CHLORID 0.9% 500 ML INJ 499.5 ML IV SCH ×2 (05:11→15:00)
[2017-12-25 05:22] LABS: AUTOMATED NEUTROPHIL # 2.8 TH/MM3 (1.8-7.7); BASOPHIL % 0.6 % (0.0-2.0); EOSINOPHIL # 0.1 TH/MM3 (0-0.4); HEMATOCRIT 25.4 % (39.0-51.0); HEMOGLOBIN 8.9 GM/DL (13.0-17.0); LYMPH % 14.1 % (9.0-44.0); LYMPHOCYTE # 0.5 TH/MM3 (1.0-4.8); MEAN CELL VOLUME 94.7 FL (80.0-100.0); MEAN CORPUSCULAR HEMOGLOBIN 33.2 PG (27.0-34.0); MEAN PLATELET VOLUME 7.5 FL (7.0-11.0); MONOCYTE # 0.3 TH/MM3 (0-0.9); NEUT % 73.3 % (16.0-70.0); PLATELET COUNT 44 TH/MM3 (150-450); RED BLOOD COUNT 2.68 MIL/MM3 (4.50-5.90); WHITE BLOOD COUNT 3.7 TH/MM3 (4.0-11.0)
[2017-12-25 05:38] LABS: INTERNATIONAL NORMALIZED RATIO 1.6 RATIO; PROTHROMBIN TIME - PATIENT 15.9 SEC (9.8-11.6)
[2017-12-25 06:00] LABS: ALBUMIN 1.8 GM/DL (3.4-5.0); BICARBONATE 22.1 MEQ/L (21.0-32.0); CALCIUM 7.2 MG/DL (8.5-10.1); CALCIUM-PROTEIN CORRECTED 8.5 MG/DL (8.5-10.1); CREATININE 0.51 MG/DL (0.60-1.30); MAGNESIUM 1.6 MG/DL (1.5-2.5); PHOSPHORUS 2.9 MG/DL (2.5-4.9); TOTAL BILIRUBIN ADULT 6.1 MG/DL (0.2-1.0); TOTAL PROTEIN 4.7 GM/DL (6.4-8.2)
--- NOTE | 2017-12-25 07:11 | HHI.CCPN ---
Subjective Remarks/Hospital Course 62 yo male. Date of admission 12/24/2017. Consultation 12/24/2017. Past medical history includes liver cirrhosis with recurrent upper GI bleeding. He was diagnosed 04/11 with liver cirrhosis. He states he quit drinking alcohol that time he was followed at [facility] for liver transplantation evaluation. April 2017, upper GI bleeding - distal Russell's esophagus and grade 1 varices. Stomach no bladder ulcers. Mucosa does not appear edematous duodenum. Status post angiogram of the celiac, SMA revealed no hemorrhagic focus identified. No further bleeding. Patient was again admitted 08/13 for upper GI bleed. EGD revealed grade 1-2 septal varices in no active bleeding. Gastric varices in the fundus just 2 cm GE junction actively squirting blood. Banding not possible so injected with 6 cc of epinephrine to stop the bleeding. Large clots and stomach. Remain intubated on octreotide and Protonix drips. Recommended if continued bleeding need to consider for TIPS. Most recently was admitted December 11, 2017 with alcohol toxicity. His has recently and he has drinking alcohol again. His alcohol levels currently 234. He presented today with upper GI bleeding. He is noted to be pancytopenic in with a white blood cell count of 3.8. Hemoglobin 7.1 and platelets of 30. INR is 1.9. AST is elevated. Alcohol level is 234. Patient received 6 L normal saline was started on a Protonix and octreotide drip. He remained hypotensive and peripheral vasopressors were started. Manager Product Marketing was consulted along with GI. Due to the upper GI bleed decision was made to secure the airway with oral tracheal intubation and placement of central line to receive rapid transfusion. I discussed this with daughter Fabi Ndiaye [phone] and she is in agreement with aggressive plans at the present time. I described to her d- dimer nature of his current clinical situation and she wished to be made aware of any medical decisions that need to be made. Knvg) did make her the healthcare proxy at this time. Subjective 12/25: Transfused 6 PRBCs, 2 FFP and 2 platelets overnight. Currently norepinephrine at 5 mcg/m and vasopressin 0.04 units per minute. Afebrile. Arousable on the ventilator. We'll transfuse FFP, cryoprecipitate and platelets again this AM Objective Vital Signs Date Time Temp Pulse Resp B/P (MAP) Pulse Ox O2 Delivery O2 Flow Rate FiO2 12/25/17 07:02 97.8 78 20 118/61 100 12/25/17 04:16 50 12/24/17 16:52 Nasal Cannula 2.00 Intake and Output 12/25/17 12/25/17 12/26/17 08:00 16:00 00:00 Intake Total 1650 ml Output Total 1275 ml Balance 375 ml Result Diagram: 12/25/17 0456 12/25/17 0456 Imaging Last Impressions Chest X-Ray 12/24/17 1900 Signed Impressions: Service Date/Time: Sunday, December 24, 2017 19:30 - CONCLUSION: 1. Mild right base and left perihilar infiltrates. Also a small right pleural effusion. 2. Endotracheal tube tip a properly positioned. 3. Left IJ central venous catheter has its tip in the superior vena cava. No pneumothorax. Carlos Jerez MD Objective Remarks GENERAL: 62 -year-old male currently orotracheally intubated SKIN: Warm and dry. No rash HEAD: Atraumatic. Normocephalic. EYES: Pupils equal and round about 3 mm bilaterally and reactive. + scleral icterus. No injection or drainage. ENT: Blood from oral mucosa during intubation notice. Positive petechiae. NECK: Trachea midline. No JVD. CARDIOVASCULAR: Regular rate and rhythm. S1, S2. No S4. RESPIRATORY: No accessory muscle use. Clear to auscultation. Breath sounds equal bilaterally. GASTROINTESTINAL: Abdomen slightly taut, nontender. Hypoactive bowel sounds are appreciated. MUSCULOSKELETAL: Extremities with trace lower extremity edema. No obvious deformities. NEUROLOGICAL: Awake and alert. No obvious cranial nerve deficits. Motor grossly within normal limits. Five out of 5 muscle strength in the arms and legs. Normal speech prior to intubation 12/24. Urinary Catheter: No Assessment to: Continue Vascular Central Line Catheter: Yes Assessment to: Continue Date of Insertion: Dec 24, 2017 Line: Central Venous Catheter Side: Left Location: Internal, Jugular A/P Assessment and Plan Neuro/Psych: EtOH intoxication Currently on propofol at 50 mcg/kg per minute/fentanyl drips in 160 mg an hour for sedation/analgesia while intubated Goal of RASS -2 Daily sedation vacation Ofirmev 1 g IV every 8 hours when necessary fever EtOH level was 234. Started on vitamin bag daily for 3 days and switch to thiamine 100 mg IV daily Follow-up on ammonia level was 117. See GI History of toxic metabolic encephalopathy secondary to elevated ammonia CV: Sinus tachycardia secondary to acute blood loss Currently on norepinephrine at 5 g per minute and vasopressin 0.04 units per minute to maintain mean arterial pressure greater than 65 Status post 6 L prior to my involvement in this case normal saline. On normal saline at 100 cc an hour Follow-up on EKG Holding spironolactone 50 mg by mouth twice a day/home medication in light of hypotension Resp: Acute hypoxemic respiratory failure History of loculated right pleural effusion status post right chest tube/Pleurx catheter PRVC 20/500/12/01/ Ventilator bundle Albuterol/ipratropium aerosols every 6 hours with albuterol aerosols every 2 hours. Dyspnea Maintain head of bed at 30 Follow-up chest x-ray in a.m. 12/26. ABG in a.m. GI: Recurrent upper GI bleeding - negative gastroduodenal artery evaluation 05/13 History of esophageal varices - grade 1-2. Most recently epinephrine injected Portal gastropathy Portal hypertension Splenomegaly EtOH cirrhosis History of Alicia-Dyson tear History of Russell's esophagus Hyperammonia Hypoalbuminemia Elevated total bilirubin Currently nothing by mouth Currently on pantoprazole drip at 8 mg an hour and Sandostatin drip at 50 g an hour Start on ceftriaxone 1 g daily for upper GI bleed Meld score GI following Dr. Marie. Plan on EGD today 12/25. Consent signed Currently on lactulose 30 cc twice daily and Xifaxan 550 mill grams twice a day for elevated ammonia level. Provide medication when able. No lactulose enemas due to severe thrombocytopenia Follow-up ammonia level was 117 : Mcdonald catheter for accurate I's and O's in a critically ill patient Endo: Sliding-scale insulin with Accu-Cheks to maintain euglycemia/low regimen every 4 hours Renal: Creatinine currently within normal limits Monitor urine output Accurate I's and O's Heme: Pancytopenia - chronic secondary to hypersplenism secondary to liver cirrhosis Coagulopathy - secondary underlying liver disease Transfusing 2 FFP and 6 PRBCs currently. Along with 2 pack platelets Cryoprecipitate, FFP and platelets now stat prior to EGD Serial hemoglobins every [address] Chew and Sorathia for intermittent transfusions and Neupogen injections during prior hospitalizations Haptoglobin slightly low at 29. LDH normal. ID: Monitor for infection On ceftriaxone for upper GI bleed MSK: PT evaluate and treat FEN: Hypomagnesium Replace electrolytes as clinically indicated 2 g mag sulfate IV 1 now. Access Left IJ CVL day #2 place 12/24 Prophylaxis - GI - pantoprazole drip/octreotide drip - DVT - SCD/pharmacological prophylaxis contraindicated with upper GI bleed Critical Care: The total critical care time was 65 minutes. Time to perform other separately billable procedures was not included in the critical care time. Ryley Casey MD Dec 25, 2017 07:11
[2017-12-25] MEDS: NOREPINEPHRINE INJ 4 MG in SODIUM CHLOR 0.9% 250 ML INJ 246 ML IV PRN ×2 (07:28→22:32)
[2017-12-25] MEDS ORDERED: ACETAMINOPHEN 1000 MG/100 ML 100 ML IV PRN (07:30)
--- NOTE | 2017-12-25 08:07 | PD.PROCEDR ---
GI Procedure REFERRING PHYSICIAN Dr. cain PROCEDURE PERFORMED EGD with NG tube placement INDICATION FOR PROCEDURE GI bleed PROCEDURE: The procedure, risks and benefits were discussed with Mr. Ndiaye and informed consent was obtained. Anesthesia sedated him with Diprivan patient already intubated in the ICU. He was placed in the left lateral decubitus position. EGD: The Pentax videoscope was introduced through the oropharynx and advanced to the second portion of the duodenum under direct visualization. Retroflexion was performed in the stomach. FINDINGS: Esophagus there was distal esophageal mucosa resembling Russell's esophagus there was a grade 1 esophageal varix just 1 column with no stigmata otherwise the esophagus was unremarkable Stomach there was a large collection of fluids and a clot in the fundus which obscured a large portion of the stomach there was evidence of portal gastropathy although mild there was no evidence of active bleeding at this point The duodenum this was normal Following the evaluation of an NG tube was placed for treatment with medications and gastric suctioning ESTIMATED BLOOD LOSS: None SPECIMENS REMOVED: None COMPLICATIONS: None IMPRESSION: GI bleed etiology unclear probably underlying gastric varices Russell's esophagus Portal gastropathy PLAN: Continue with current supportive care Continue octreotide and Protonix Monitor labs and transfuse as needed Need to add lactulose Need to have a Orhan tube at bedside for any active bleeding this would be the best direction at this point Consideration to be made for embolizing gastric varices Repeat EGD in 2-3 days Vish Yan MD Dec 25, 2017 08:07
[2017-12-25] MEDS: MAGNESIUM SULFATE 1 GM PREMIX 100 ML IV SCH ×2 (09:00→09:42)
[2017-12-25] MEDS ORDERED: OCTREOTIDE INJ 500 MCG in SODIUM CHLORID 0.9% 500 ML INJ 499.5 ML IV SCH (09:00)
[2017-12-25] MEDS: SODIUM CHLORIDE 0.9% FLUSH 10 ML FLUSH IV FLUSH SCH ×2 (09:00→09:43)
[2017-12-25] MEDS: LACTULOSE SYRUP 20 GM/30 ML CUP PO SCH ×2 (09:43→21:46)
[2017-12-25] MEDS: RIFAXIMIN 550 MG TAB PO SCH ×2 (09:43→21:47)
--- NOTE | 2017-12-25 10:14 | RADRPT ---
EXAM DATE/TIME: 12/25/2017 09:17 [facility] COMPARISON: US ABDOMEN - LIVER, April 05, 2016, 7:52. INDICATIONS : Portal hypertension. MEDICAL HISTORY : Hypertension. Esophageal varices. Paracentesis. Kidney stones. Liver disease. ETOH. Cirrhosis. Thromb ocytopenia. SURGICAL HISTORY : Paracentesis. Chest tube; right. Paracentesis. Bone spur right elbow. ENCOUNTER: Subsequent ACUITY: 1 day PAIN SCORE: Nonresponsive. LOCATION: Bilateral upper quadrant MEASUREMENTS: LIVER: 14.6 cm length COMMON DUCT: 5 mm RIGHT KIDNEY: 13.0 x 5.8 x 6.4 cm SPLEEN: 15.8 cm length FINDINGS: LIVER: Slight nodular contour and increased echogenicity consistent with history of cirrhosis. No significan t focal mass or intrapelvic ductal dilatation. Trace perihepatic fluid with small bilateral pleural e ffusions. COMMON DUCT: No intraluminal mass or stone visualized. GALLBLADDER: Common gallbladder wall, sludge and dominant stone measuring 2.8 x 1.9 x 1.9 cm within the body. Trac e periportal cystic fluid. No sonographic Pearson's sign. PANCREAS: The visualized portions are within normal limits. RIGHT KIDNEY: No hydronephrosis, stone or mass. SPLEEN: Enlarged without focal lesion. CONCLUSION: 1. Cirrhotic appearing liver with mild splenomegaly consistent with portal hypertension. The portal v ein is patent with hepatopedal flow. 2. Gallbladder wall thickening with small amount of sludge and dominant gallstone. These findings are typically seen in patient's with chronic liver condition. 3. Incidental note of small bilateral pleural effusions. Jorge Roche MD on December 25, 2017 at 10:02 Board Certified Radiologist. This report was verified electronically.
[2017-12-25] MEDS: VASOPRESSIN INJ 40 UNITS in DEXTROSE 5% IN WATER 100ML INJ 98 ML IV SCH ×2 (13:40)
--- NOTE | 2017-12-25 14:57 | PD.CONS ---
Consult Service Palliative Care Consult Requested By Dr. Casey . Primary Care Physician Juan Manuel Parisi MD Reason for Consultation a. To assist with evaluation and management of symptoms including: Vomiting , depression b. To assist medical decision maker(s) with: better understanding of current medical conditions; weighing benefits/burdens of medical treatment options; making medical treatment decisions. HPI History of Present Illness This is a 62-year-old male who presented to the emergency room in [place] on 12/24 with a complaint of nausea and hematemesis. He has a long history of alcohol abuse and has developed end-stage liver disease with fatty liver, history of a Alicia-Dyson tear and cirrhosis. He had abstained from alcohol for the prior 8-12 months in preparation for liver transplant, however his in early October and he became extremely depressed and started drinking again. He had previously been admitted 08/13 for an upper GI bleed. He was again admitted December 11, 2017 with alcohol toxicity. His presenting alcohol level was 234 on this admission. He underwent EGD that showed Russell' s esophagus, grade 1-2 esophageal varix with no stigmata. The stomach showed gastric varices in the fundus near GE junction actively squirting blood which was unable to be banded so it was injected with 6 cc of epinephrine, a large collection of fluids and a clot in the fundus which obscured a large portion of stomach. Due to upper GI bleed decision was made to secure the airway with orotracheal intubation and placement of central line to remain seated for rapid transfusion. Overnight he received 6 units of packed red blood cells, 2 of FFP and 2 platelets. He is currently on vasopressors pending transfusion of FFP, cryoprecipitate and another round of platelets this morning. Due to his instability and possible need for acute placement of a Rohan tube he was transferred from the [facility] to [facility]. ED course: * Laboratory: WBC 3.8, hemoglobin 7.1, hematocrit 21.5, platelets 38, sodium 143 , potassium 3.8, BUN 8, creatinine 0.64, lactic acid 5.4, calcium 7.3, total bilirubin 4.3, AST 50, ALT 21, total protein 5.7, albumin 1.9, prothrombin time 19.7, INR 1.9, APTT 32.2, fibrinogen 117, alcohol level is 234, ABG pH 7.26, PCO2 46, PO2 397, hemoglobin 6.4, HCO3 20, base excess -5.9, oxygen saturation 97% on PRVC/AC 100% FiO2. * Radiology: Chest x-ray mild right base and left perihilar infiltrates, small right pleural effusion, well-positioned ET tube, left IJ central venous catheter with tip in the SVC, no pneumothorax. Patient seen in the ICU at [place], intubated, sedated, NG tube with dark brown drainage, blood residual on oral tissues. He is sedated on Levophed and vasopressin for hemodynamic support. He is pending transfer to the main campus for possible placement of a Rohan tube. . . Function/Cognitive Trajectory He has become very depressed since the loss of his in early October. He had managed to abstain from alcohol for most of 2016 per his daughter's but with the loss of his he resumed drinking, told his daughter he did not wish to undergo liver transplant, planned to before January and did not want to sober. This is his second admission to the hospital for alcohol related complications this month. . Past Family Social History Coded Allergies: No Known Allergies (Unverified Allergy, Unknown, 12/24/17) Past Medical History Alcoholic hepatitis secondary to EtOH abuse Liver cirrhosis Fatty liver disease History of esophageal varices Portal hypertension Kidney stones status post lithotripsy Recurrent pleural effusions History of right-sided recurrent hemopneumothorax with recurrent chest tube placement Bacterial peritonitis, spontaneous Anemia History of Alicia-Dyson tear Esophagitis Esophageal varices Portal Gastropathy Russell's esophagus . Past Surgical History Bone spur removal from his elbow Lithotripsy for nephrolithiasis Right Chest tube placement 09/2016 Paracentesis 09/2016 Thoracentesis 04/11/14 Pleurx catheter placement 09/23/16 EGD 04/2017, 09/14/16, 11/30/16, 12/24/17 EGD/colonoscopy with polyp fulguration 03/2016 Orotracheal intubation 12/24/17 Left IJ central line placement 12/24/18 Transesophageal echocardiogram 06/01/17, EF 60-65%, no valvulopathy . Reported Medications Reported Meds & Active Scripts Active Pantoprazole (Pantoprazole Sodium) 40 Mg Tab 40 Mg PO DAILY Aldactone (Spironolactone) 50 Mg Tab 50 Mg PO BID@09,18 Reported [Lactulose] Unknown Dose PO TID Current Medications Medications (Trade) Dose Ordered Sig/Armida Route Start Time Stop Time Status Last Admin Pantoprazole Sodium 80 mg/ Sodium Chloride 100 ml @ 10 mls/hr Q10H IV 12/24/17 14:32 12/25/17 03:47 Sodium Chloride 1,000 ml @ 100 mls/hr Q10H IV 12/24/17 15:39 12/25/17 01:39 (Phenergan Inj) 12.5 mg Q6H PRN IM 12/24/17 17:00 Norepinephrine Bitartrate 4 mg/ Sodium Chloride 250 ml @ 7.5 mls/hr TITRATE PRN IV 12/24/17 18:00 12/25/17 07:28 (Brethine Inj) 1 mg UNSCH PRN SQ 12/24/17 18:00 (Peridex 0.12% Liq) 15 ml BID@08,20 MT 12/24/17 20:00 12/25/17 05:03 Propofol 100 ml @ 2.04 mls/hr TITRATE PRN IV 12/24/17 18:15 12/25/17 07:05 Fentanyl Citrate 250 ml @ 5 mls/hr TITRATE PRN IV 12/24/17 18:15 12/24/17 19:10 Multivitamins 10 ml/Thiamine HCl 100 mg/Folic Acid 1 mg/Sodium Chloride 511.2 ml @ 125 mls/hr DAILY@1800 IV 12/25/17 18:00 12/26/17 22:06 (NS Flush) DAILY IV FLUSH 12/25/17 09:00 (NS Flush) UNSCH PRN IV FLUSH 12/24/17 19:00 (Tears Naturale Opth Soln) 1 drop Q8HR EACH EYE 12/24/17 22:00 12/25/17 05:02 Thiamine HCl 100 mg/Sodium Chloride 101 ml @ 100 mls/hr Q24H IV 12/27/17 18:00 (NS Flush) 2 ml UNSCH PRN IV FLUSH 12/24/17 19:15 (NS Flush) 2 ml BID IV FLUSH 12/24/17 21:00 12/25/17 09:43 (Versed Inj) 2 mg Q1H PRN IV PUSH 12/24/17 19:15 (Zofran Inj) 4 mg Q6H PRN IV PUSH 12/24/17 19:15 (Duoneb Neb) 1 ampule Q6HR NEB INH 12/24/17 22:00 12/25/17 09:52 (Albuterol Neb) 2.5 mg Q2HR NEB PRN INH 12/24/17 19:15 Miscellaneous Information 1 [id number] XX 12/24/17 19:15 12/24/17 19:15 (Chlorhexidine 2% Cloth) 3 pack Taper DAILY@04 TOP 12/25/17 04:00 12/21/18 03:59 12/25/17 03:47 (Chlorhexidine 2% Cloth) 3 pack UNSCH PRN TOP 12/24/17 19:15 Ceftriaxone Sodium 1000 mg/ Sodium Chloride 100 ml @ 200 mls/hr Q24H IV 12/24/17 21:00 12/25/17 00:05 Vasopressin 40 units/Dextrose 100 ml @ 6 mls/hr [id number] IV 12/24/17 21:00 12/24/17 22:58 Octreotide Acetate 500 mcg/ Sodium Chloride 500 ml @ 50 mls/hr Q10H IV 12/25/17 05:00 12/25/17 05:11 (Lactulose Liq) 30 ml BID PO 12/25/17 09:00 12/25/17 09:43 (Xifaxan) 550 mg BID PO 12/25/17 09:00 12/25/17 09:43 Acetaminophen 100 ml @ 400 mls/hr Q8HR PRN IV 12/25/17 07:30 . Family History Mother: of breast cancer in mid 50's. Father: of PR at age 63-64; heavy smoker . Substance Use Tobacco: No previous history found in records. Alcohol: Regular use. Prescription med abuse: No previous history found in records. Illicits: No previous history found in records. . Psychosocial History Born in [place] but lived in [place] for many years. He has one sister who lives in [place]. He has been living in [place] for over 25 years, currently resides in [place]. He has 3 daughters, Fabi, who lives in [place] , Melina who lives in [place] and Emely who lives in [place]. His recently . . Spiritual/Cultural Factors Patient is Christianity and would appreciate sacrament of the sick from a tour director. . . Living Will: Copy in medical record Health Care Surrogate: Copy in medical record (reportedly, recently changed to assign his daughter, Fabi as his primary HCS and Rebekahkian Mendoza as his alternate. Trying to locate paperwork, completed at [place] within last 1-2 weeks. ) Durable Power of Buffer Inflated Pad: Completed, but not made available Health Care Surrogate(s): By the telephone consent received from Melina Ndiaye and Emely Ndiaye, the patient's 2 younger daughters, they have ceded the decision making to their sister, Fabi, which is consistent with the wishes of the patient expressed by Rebekah Mendoza, the patient's DPOA and longtime caregiver, that the patient's most recent wish was that Fabi be the primary healthcare surrogate and Rebekah serve as the alternate. At this time the wheeze and agrees to serve as health care surrogate and is in contact with both of her sisters and Rebekah to assure that the patient's wishes, as he has expressed them to his friends and family, are honored. . Documented care wishes: Patient has completed a living will stating that in case he has a terminal, end- stage condition or a persistent vegetative state that he be allowed to without life-prolonging procedures, be given medication to alleviate pain and enhance comfort, not to be kept alive by ventilator's or other artificial life support nor to be tube fed or artificially hydrated to sustain life. . Today's verbally stated goals: Patient is intubated and cannot communicate. Per my discussion with his 3 daughters and his friend, Rebekahkian Mendoza, he has become very depressed since the loss of his in early October and has resumed drinking alcohol, after nearly a years abstinence, while on the liver transplant list. He has stated to his daughter's that he does not wish to " sober" and had not expected to live past January of this year. . Family/friends goals: It is the goal friends and family to allow for acute workup to continue but all are aware that his condition is grave and that he would not wish to be maintained on machines or artificial means. His daughter, mazin, is en route to [place] and should arrive late this evening. Plan is for further family discussion tomorrow. . Ethical and Legal Issues Per my discussion with Rebekah Mendoza, patient had come to [facility] in person within the last 1-2 weeks to fill out new advanced directive paperwork to include a healthcare surrogate in which she reportedly name his daughter Fabi as his primary HCS and his friend Rebekah as his alternate healthcare surrogate. That paperwork has not been located, however the head of HIM has been contacted to try to locate it. . Physical Exam Vital Signs Date Time Temp Pulse Resp B/P (MAP) Pulse Ox O2 Delivery O2 Flow Rate FiO2 12/25/17 11:40 98.3 68 19 119/63 100 12/25/17 10:55 100 50 12/25/17 07:28 78 104/75 12/25/17 07:27 100 50 12/25/17 07:02 97.8 78 20 118/61 100 12/25/17 06:31 78 20 109/59 (76) 100 12/25/17 06:21 82 21 114/63 (80) 100 12/25/17 06:11 74 20 102/54 (70) 100 12/25/17 06:01 74 20 101/55 (70) 100 12/25/17 06:00 76 12/25/17 05:51 74 20 101/54 (70) 100 12/25/17 05:41 74 20 102/53 (69) 100 12/25/17 05:31 98.0 74 20 109/55 (73) 100 12/25/17 05:30 97.8 72 20 103/65 100 12/25/17 05:14 98.2 78 20 111/61 100 12/25/17 05:01 76 20 114/62 (79) 100 12/25/17 04:59 97.8 75 20 114/62 100 12/25/17 04:51 76 20 114/61 (78) 100 12/25/17 04:41 76 20 110/61 (77) 100 12/25/17 04:31 76 20 116/59 (78) 100 12/25/17 04:21 76 19 134/66 (88) 100 12/25/17 04:16 100 50 12/25/17 04:11 66 20 114/63 (80) 100 12/25/17 04:06 66 12/25/17 04:01 66 20 113/61 (78) 100 12/25/17 03:51 98.0 66 20 110/62 (78) 100 12/25/17 03:41 70 20 113/62 (79) 100 12/25/17 03:31 74 20 118/61 (80) 100 12/25/17 03:20 97.7 65 20 113/62 100 12/25/17 03:11 64 20 116/63 (80) 100 12/25/17 03:02 97.8 62 20 116/65 100 12/25/17 03:01 62 19 116/65 (82) 100 12/25/17 02:52 97.7 64 20 111/59 100 12/25/17 02:51 62 20 111/59 (76) 100 12/25/17 02:41 64 20 115/64 (81) 100 12/25/17 02:31 66 20 116/65 (82) 100 12/25/17 02:21 62 19 111/56 (74) 100 12/25/17 02:03 76 12/25/17 02:01 76 20 92/55 (67) 100 12/25/17 01:51 76 20 92/55 (67) 100 12/25/17 01:41 78 19 92/54 (67) 100 12/25/17 01:31 80 20 96/56 (69) 100 12/25/17 01:21 82 20 93/54 (67) 100 12/25/17 01:18 100 60 12/25/17 01:11 82 19 100/59 (73) 100 12/25/17 01:01 84 20 98/57 (71) 100 12/25/17 00:51 97.8 84 20 99/57 (71) 100 12/25/17 00:50 97.8 84 20 97/65 100 12/25/17 00:41 86 20 97/59 (72) 100 12/25/17 00:31 86 19 103/59 (74) 100 12/25/17 00:30 97.9 87 20 103/59 100 12/25/17 00:21 88 19 99/60 (73) 100 12/25/17 00:18 88 12/25/17 00:10 86 20 113/64 (80) 100 12/25/17 00:00 88 19 118/66 (83) 100 12/25/17 00:00 88 19 118/66 (83) 100 12/24/17 23:50 90 19 113/66 (82) 100 12/24/17 23:40 88 20 117/66 (83) 100 12/24/17 23:30 90 20 133/72 (92) 100 12/24/17 23:23 90 140/77 12/24/17 23:20 90 20 140/77 (98) 100 12/24/17 23:10 90 19 144/78 (100) 100 12/24/17 23:00 94 20 139/75 (96) 100 12/24/17 22:59 94 20 143/77 (99) 100 12/24/17 22:58 96 180/86 12/24/17 22:50 60 20 184/86 (118) 100 12/24/17 22:41 98.2 88 20 153/83 100 12/24/17 22:40 92 19 153/83 (106) 100 12/24/17 22:39 98.2 94 20 153/83 100 12/24/17 22:33 94 20 142/88 (106) 100 12/24/17 22:20 144/78 (100) 100 12/24/17 22:11 98.1 68 20 150/78 100 12/24/17 22:10 74 17 150/78 (102) 100 12/24/17 22:07 100 70 12/24/17 22:03 74 12/24/17 22:00 86 19 119/68 (85) 100 12/24/17 21:54 98.2 88 20 82/53 100 12/24/17 21:50 94 19 82/53 (63) 100 12/24/17 21:44 97.8 97 20 94/54 100 12/24/17 21:40 94 20 94/54 (67) 100 12/24/17 21:30 90 19 125/70 (88) 100 12/24/17 21:20 90 20 131/70 (90) 100 12/24/17 21:06 97.8 93 22 133/73 100 12/24/17 21:02 97.7 94 22 133/73 100 12/24/17 21:01 97.7 94 22 132/73 100 12/24/17 21:00 96 20 133/73 (93) 100 12/24/17 20:50 90 19 119/68 (85) 100 12/24/17 20:41 97.6 93 22 99/59 100 12/24/17 20:40 94 19 99/59 (72) 100 12/24/17 20:30 106 24 136/68 (90) 100 12/24/17 20:30 106 24 136/68 (90) 100 12/24/17 20:25 97.4 109 24 135/64 (87) 100 12/24/17 20:20 96 20 135/64 (87) 100 12/24/17 20:11 100 19 132/65 (87) 100 12/24/17 20:09 97.6 102 22 109/61 100 12/24/17 20:06 97.6 92 22 109/61 100 12/24/17 20:02 94 20 109/61 (77) 100 12/24/17 20:00 90 12/24/17 20:00 100 80 12/24/17 19:45 98 18 128/61 (83) 100 12/24/17 19:45 97.9 107 22 128/61 100 12/24/17 19:38 97.8 96 22 107/62 100 12/24/17 19:35 97 90/60 12/24/17 19:30 97.9 93 22 109/61 100 12/24/17 19:18 97.8 22 104/59 (74) 100 12/24/17 18:30 100 100 12/24/17 16:55 12/24/17 16:52 82 20 89/54 (66) 100 Nasal Cannula 2.00 12/24/17 16:24 87 20 94/54 (67) 12/24/17 16:18 88 20 102/58 (73) 99 Nasal Cannula 2.00 12/24/17 16:11 88 20 96/51 (66) 99 Nasal Cannula 2.00 12/24/17 16:04 88 20 93/53 (66) 99 Nasal Cannula 2.00 12/24/17 15:55 86 20 85/48 (60) Nasal Cannula 12/24/17 15:40 87 20 90/51 (64) 100 Nasal Cannula 2.00 12/24/17 15:15 88 20 91/56 (68) 100 Nasal Cannula 2.00 12/24/17 14:25 99 Nasal Cannula 2.00 12/24/17 14:11 98.1 90 20 98/60 (73) 97 . 12/25/17 12/26/17 19:00 07:00 Intake Total 550 ml Balance 550 ml Packed Cells 400 ml Blood Product IV Normal Saline Flush 50 ml Other 100 ml . Exam CONSTITUTIONAL/GENERAL: This is an adequately nourished patient, in no apparent distress. TUBES/LINES/DRAINS: Left IJ CVL, ETT, NGT, Mcdonald SKIN: No jaundice, rashes, or lesions. No wounds seen anteriorly. Skin temperature appropriate. Not diaphoretic. HEAD: Atraumatic. Normocephalic. EYES: Pupils equal and round and reactive. No scleral icterus. No injection or drainage. Fundi not examined. ENT: Nose without bleeding or purulent drainage. Throat without visible erythema, exudates, masses, or lesions. NECK: Trachea midline. Supple, nontender. No palpable thyroid enlargement or nodularity. CARDIOVASCULAR: Regular rate and rhythm without murmurs, gallops, or rubs. No JVD. Peripheral pulses symmetric. RESPIRATORY/CHEST: Symmetric, unlabored respirations. Clear to auscultation. Breath sounds equal bilaterally. No wheezes, rales, or rhonchi. GASTROINTESTINAL: Abdomen distended, tender to palpation (patient winced with palpation), hypoactive bowel sounds, positive splenomegaly. GENITOURINARY: Without palpable bladder distension. Mcdonald catheter in place. MUSCULOSKELETAL: Extremities without clubbing, cyanosis, or edema. No mottling or clubbing. LYMPHATICS: No palpable cervical or supraclavicular adenopathy. NEUROLOGICAL: Intubated, sedated. PSYCHIATRIC: Sedated. . Diagnostic Tests Laboratory Laboratory Tests Test 12/24/17 01:05 12/24/17 14:15 12/24/17 19:45 12/24/17 21:32 Nasal Screen MRSA (PCR) MRSA NOT DETECTED (NOT White Blood Count 3.8 TH/MM3 (4.0-11.0) Red Blood Count 1.94 MIL/MM3 (4.50-5.90) Hemoglobin 7.1 GM/DL (13.0-17.0) 7.9 GM/DL (13.0-17.0) Hematocrit 21.5 % (39.0-51.0) 23.2 % (39.0-51.0) Mean Corpuscular Volume 110.7 FL (80.0-100.0) Mean Corpuscular Hemoglobin 36.8 PG (27.0-34.0) Mean Corpuscular Hemoglobin Concent 33.2 % (32.0-36.0) Red Cell Distribution Width 16.6 % (11.6-17.2) Platelet Count 38 TH/MM3 (150-450) Mean Platelet Volume 7.5 FL (7.0-11.0) Neutrophils (%) (Auto) 63.6 % (16.0-70.0) Lymphocytes (%) (Auto) 20.4 % (9.0-44.0) Monocytes (%) (Auto) 12.0 % (0.0-8.0) Eosinophils (%) (Auto) 3.2 % (0.0-4.0) Basophils (%) (Auto) 0.8 % (0.0-2.0) Neutrophils # (Auto) 2.4 TH/MM3 (1.8-7.7) Lymphocytes # (Auto) 0.8 TH/MM3 (1.0-4.8) Monocytes # (Auto) 0.5 TH/MM3 (0-0.9) Eosinophils # (Auto) 0.1 TH/MM3 (0-0.4) Basophils # (Auto) 0.0 TH/MM3 (0-0.2) CBC Comment AUTO DIFF Differential Comment AUTO DIFF CONFIRMED Prothrombin Time 19.7 SEC (9.8-11.6) Prothromb Time International Ratio 1.9 RATIO Blood Urea Nitrogen 8 MG/DL (7-18) Creatinine 0.64 MG/DL (0.60-1.30) Random Glucose 105 MG/DL (74-106) Total Protein 5.7 GM/DL (6.4-8.2) Albumin 1.9 GM/DL (3.4-5.0) Calcium Level 7.3 MG/DL (8.5-10.1) Magnesium Level 1.6 MG/DL (1.5-2.5) Alkaline Phosphatase 83 U/L (45-117) Aspartate Amino Transf (AST/SGOT) 50 U/L (15-37) Alanine Aminotransferase (ALT/SGPT) 21 U/L (12-78) Total Bilirubin 4.3 MG/DL (0.2-1.0) Sodium Level 143 MEQ/L (136-145) Potassium Level 3.8 MEQ/L (3.5-5.1) Chloride Level 106 MEQ/L (98-107) Carbon Dioxide Level 29.8 MEQ/L (21.0-32.0) Anion Gap 7 MEQ/L (5-15) Estimat Glomerular Filtration Rate 127 ML/MIN (>89) Protein Corrected Calcium 8.1 MG/DL (8.5-10.1) Total Creatine Kinase 51 U/L (39-308) Ethyl Alcohol Level 234 MG/DL (0-5) Blood Gas Puncture Site RT RADIAL Blood Gas Patient Temperature 37.0 Blood Gas HCO3 20 mmol/L (22-26) Blood Gas Base Excess -5.9 mmol/L (-2-2) Blood Gas Oxygen Saturation 97 % (90-100) Arterial Blood pH 7.26 (7.380-7.420) Arterial Blood Partial Pressure CO2 46 mmHg (38-42) Arterial Blood Partial Pressure O2 397 mmHg (61-120) Arterial Blood Oxygen Content 9.7 Vol % (12.0-20.0) Arterial Blood Carboxyhemoglobin 1.9 % (0-4) Arterial Blood Methemoglobin 1.2 % (0-2) Blood Gas Hemoglobin 6.4 G/DL (12.0-16.0) Oxygen Delivery Device VENTILATOR Blood Gas Ventilator Setting PRVC/AC Blood Gas Inspired Oxygen 100 % Blood Smear Pathologist Review Haptoglobin 29 MG/DL (30-200) Activated Partial Thromboplast Time 32.2 SEC (24.3-30.1) Fibrinogen 117 mg/dL (227-377) Lactic Acid Level 5.4 mmol/L (0.4-2.0) Lactate Dehydrogenase 222 U/L (87-241) Test 12/25/17 03:10 12/25/17 04:56 12/25/17 09:10 Hemoglobin 8.0 GM/DL (13.0-17.0) 8.9 GM/DL (13.0-17.0) Hematocrit 23.4 % (39.0-51.0) 25.4 % (39.0-51.0) Lactic Acid Level 4.9 mmol/L (0.4-2.0) 4.6 mmol/L (0.4-2.0) White Blood Count 3.7 TH/MM3 (4.0-11.0) Red Blood Count 2.68 MIL/MM3 (4.50-5.90) Mean Corpuscular Volume 94.7 FL (80.0-100.0) Mean Corpuscular Hemoglobin 33.2 PG (27.0-34.0) Mean Corpuscular Hemoglobin Concent 35.0 % (32.0-36.0) Red Cell Distribution Width 21.0 % (11.6-17.2) Platelet Count 44 TH/MM3 (150-450) Mean Platelet Volume 7.5 FL (7.0-11.0) Neutrophils (%) (Auto) 73.3 % (16.0-70.0) Lymphocytes (%) (Auto) 14.1 % (9.0-44.0) Monocytes (%) (Auto) 9.0 % (0.0-8.0) Eosinophils (%) (Auto) 3.0 % (0.0-4.0) Basophils (%) (Auto) 0.6 % (0.0-2.0) Neutrophils # (Auto) 2.8 TH/MM3 (1.8-7.7) Lymphocytes # (Auto) 0.5 TH/MM3 (1.0-4.8) Monocytes # (Auto) 0.3 TH/MM3 (0-0.9) Eosinophils # (Auto) 0.1 TH/MM3 (0-0.4) Basophils # (Auto) 0.0 TH/MM3 (0-0.2) CBC Comment AUTO DIFF Differential Comment AUTO DIFF CONFIRMED Prothrombin Time 15.9 SEC (9.8-11.6) Prothromb Time International Ratio 1.6 RATIO Activated Partial Thromboplast Time 27.1 SEC (24.3-30.1) Blood Urea Nitrogen 12 MG/DL (7-18) Creatinine 0.51 MG/DL (0.60-1.30) Random Glucose 147 MG/DL (74-106) Total Protein 4.7 GM/DL (6.4-8.2) Albumin 1.8 GM/DL (3.4-5.0) Calcium Level 7.2 MG/DL (8.5-10.1) Phosphorus Level 2.9 MG/DL (2.5-4.9) Magnesium Level 1.6 MG/DL (1.5-2.5) Alkaline Phosphatase 56 U/L (45-117) Aspartate Amino Transf (AST/SGOT) 40 U/L (15-37) Alanine Aminotransferase (ALT/SGPT) 19 U/L (12-78) Total Bilirubin 6.1 MG/DL (0.2-1.0) Sodium Level 145 MEQ/L (136-145) Potassium Level 4.1 MEQ/L (3.5-5.1) Chloride Level 112 MEQ/L (98-107) Carbon Dioxide Level 22.1 MEQ/L (21.0-32.0) Anion Gap 11 MEQ/L (5-15) Estimat Glomerular Filtration Rate 165 ML/MIN (>89) Protein Corrected Calcium 8.5 MG/DL (8.5-10.1) Ammonia 117 MCMOL/L (11-32) Amylase Level 14 U/L (25-115) Lipase 146 U/L (73-393) Thyroid Stimulating Hormone 3rd Gen 0.711 uIU/ML (0.358-3.740) Blood Gas Puncture Site RT RADIAL Blood Gas Patient Temperature 37.0 Blood Gas HCO3 22 mmol/L (22-26) Blood Gas Base Excess -1.7 mmol/L (-2-2) Blood Gas Oxygen Saturation 96 % (90-100) Arterial Blood pH 7.42 (7.380-7.420) Arterial Blood Partial Pressure CO2 35 mmHg (38-42) Arterial Blood Partial Pressure O2 103 mmHg (61-120) Arterial Blood Oxygen Content 14.8 Vol % (12.0-20.0) Arterial Blood Carboxyhemoglobin 1.6 % (0-4) Arterial Blood Methemoglobin 1.3 % (0-2) Blood Gas Hemoglobin 10.9 G/DL (12.0-16.0) Oxygen Delivery Device VENTILATOR Blood Gas Ventilator Setting 500/10/PEEP 5 Blood Gas Inspired Oxygen 50 % . Result Diagram: 12/25/17 0456 12/25/17 0456 Imaging Last 24 hours Impressions Liver Ultrasound 12/25/17 0000 Signed Impressions: Service Date/Time: Monday, December 25, 2017 09:17 - CONCLUSION: 1. Cirrhotic appearing liver with mild splenomegaly consistent with portal hypertension. The portal vein is patent with hepatopedal flow. 2. Gallbladder wall thickening with small amount of sludge and dominant gallstone. These findings are typically seen in patient's with chronic liver condition. 3. Incidental note of small bilateral pleural effusions. Jorge Roche MD Chest X-Ray 12/24/17 1900 Signed Impressions: Service Date/Time: Sunday, December 24, 2017 19:30 - CONCLUSION: 1. Mild right base and left perihilar infiltrates. Also a small right pleural effusion. 2. Endotracheal tube tip a properly positioned. 3. Left IJ central venous catheter has its tip in the superior vena cava. No pneumothorax. Carlos Jerez MD . Current Medications Medications (Trade) Dose Ordered Sig/Armida Route Start Time Stop Time Status Last Admin Pantoprazole Sodium 80 mg/ Sodium Chloride 100 ml @ 10 mls/hr Q10H IV 12/24/17 14:32 12/25/17 03:47 Sodium Chloride 1,000 ml @ 100 mls/hr Q10H IV 12/24/17 15:39 12/25/17 01:39 (Phenergan Inj) 12.5 mg Q6H PRN IM 12/24/17 17:00 Norepinephrine Bitartrate 4 mg/ Sodium Chloride 250 ml @ 7.5 mls/hr TITRATE PRN IV 12/24/17 18:00 12/25/17 07:28 (Brethine Inj) 1 mg UNSCH PRN SQ 12/24/17 18:00 (Peridex 0.12% Liq) 15 ml BID@08,20 MT 12/24/17 20:00 12/25/17 05:03 Propofol 100 ml @ 2.04 mls/hr TITRATE PRN IV 12/24/17 18:15 12/25/17 07:05 Fentanyl Citrate 250 ml @ 5 mls/hr TITRATE PRN IV 12/24/17 18:15 12/24/17 19:10 Multivitamins 10 ml/Thiamine HCl 100 mg/Folic Acid 1 mg/Sodium Chloride 511.2 ml @ 125 mls/hr DAILY@1800 IV 12/25/17 18:00 12/26/17 22:06 (NS Flush) DAILY IV FLUSH 12/25/17 09:00 (NS Flush) UNSCH PRN IV FLUSH 12/24/17 19:00 (Tears Naturale Opth Soln) 1 drop Q8HR EACH EYE 12/24/17 22:00 12/25/17 05:02 Thiamine HCl 100 mg/Sodium Chloride 101 ml @ 100 mls/hr Q24H IV 12/27/17 18:00 (NS Flush) 2 ml UNSCH PRN IV FLUSH 12/24/17 19:15 (NS Flush) 2 ml BID IV FLUSH 12/24/17 21:00 12/25/17 09:43 (Versed Inj) 2 mg Q1H PRN IV PUSH 12/24/17 19:15 (Zofran Inj) 4 mg Q6H PRN IV PUSH 12/24/17 19:15 (Duoneb Neb) 1 ampule Q6HR NEB INH 12/24/17 22:00 12/25/17 09:52 (Albuterol Neb) 2.5 mg Q2HR NEB PRN INH 12/24/17 19:15 Miscellaneous Information 1 Q361D XX 12/24/17 19:15 12/24/17 19:15 (Chlorhexidine 2% Cloth) 3 pack Taper DAILY@04 TOP 12/25/17 04:00 12/21/18 03:59 12/25/17 03:47 (Chlorhexidine 2% Cloth) 3 pack UNSCH PRN TOP 12/24/17 19:15 Ceftriaxone Sodium 1000 mg/ Sodium Chloride 100 ml @ 200 mls/hr Q24H IV 12/24/17 21:00 12/25/17 00:05 Vasopressin 40 units/Dextrose 100 ml @ 6 mls/hr [id number] IV 12/24/17 21:00 12/24/17 22:58 Octreotide Acetate 500 mcg/ Sodium Chloride 500 ml @ 50 mls/hr Q10H IV 12/25/17 05:00 12/25/17 05:11 (Lactulose Liq) 30 ml BID PO 12/25/17 09:00 12/25/17 09:43 (Xifaxan) 550 mg BID PO 12/25/17 09:00 12/25/17 09:43 Acetaminophen 100 ml @ 400 mls/hr Q8HR PRN IV 12/25/17 07:30 . Procedures Orotracheal intubation 12/24/17 Left IJ central line placement 12/24/18 . Patient/Family Conference Present at Family Conference: Spoke by phone with patient's 3 daughters, Fabi , Melina and Emely as well as Rebekah Mendoza, his reported DPOA and all were consistent in stating that Mr. Ndiaye had recently changed his healthcare surrogate from his daughter Melina, to his daughter Fabi with Rebekah Mendoza as the alternate. Both Melina and Emely contacted me by telephone, after being contacted by Fabi, to state that they wanted Fabi to be the primary decision maker and were happy to abide by her decisions. I did provide clinical update to all of the contacts and provided palliative care contact information for further updates or questions. Reviewed the patient's psychosocial history, previously stated end-of-life conversations and wishes. Reviewed palliative care purpose and focus and discussed the items below. . Family Conference Time (mins): 60 Family Conference Location: Telephone Issues Discussed: * Palliative care role, purpose, approach * Additional medical, psychosocial, and spiritual history * Patients general health, functional status, and cognitive changes in the months leading up to the current hospitalization * Patient/family understanding of the current medical problems * Patient/family understanding of prognosis * Patients goals of care as best understood from advance directives and/or conversations and/or values * Current medical treatment options and benefits/burdens of those options * Likely scenarios comparing ongoing aggressive care with a transition to comfort measures only * Questions answered to the best of my ability * Palliative care contact information provided Assessment and Plan Disease Oriented Problem List: (1) Abnormal LFTs (2) Septic shock (3) Hepatic failure (4) UGI bleed (5) Thrombocytopenia Symptom Scale: (1) Vomiting 0-10 Scale: Unable to quantify (patient intubated and sedated.) (2) Depression 0-10 Scale: Unable to quantify (patient intubated and sedated.) Pertinent Non-Medical Issues Psychosocial:Born in [place] but lived in [place] for many years. He has one sister who lives in [place]. He has been living in [place] for over 25 years, currently resides in [place]. He has 3 daughters, Fabi, who lives in [place], Melina who lives in [place] and Emely who lives in [place]. His recently . Spiritual: He is Christianity and sacraments of the sick have been requested. Legal: He has a previous healthcare surrogate naming his late and his daughter Melina as healthcare surrogates. He has reportedly recently completed new advanced directives naming his daughter Fabi as his primary healthcare surrogate and Rebekah Mendoza as his alternate. We are attempting to locate that paperwork through [address] information management, however in the meantime, I have spoken with all 3 daughters and Ms. Mendoza, all who agree that Fabi should be the decision-maker, as they know that is consistent with their father's wishes. Ethical issues impacting care: None noted. . Important Contacts Daughter: Fabi , Daughter: Melina Daughter: Emely Friend: Rebekah Mendoza, his reported DPOA . Prognosis His prognosis is poor. He is currently on mechanical ventilator requiring vasopressor support for hemodynamic stability. He has a known history of end- stage liver disease with esophageal varices and has recently resumed heavy alcohol intake after nearly a year of abstinence. He had previously been pursuing a liver transplant at the request of his late , but since her , he has stated to his daughters that he did not plan to go forth with the transplant. He has pancytopenia and coagulopathy. He is at high risk for continued bleeding and further complications. . Code Status: Full Code (pending arrival of the family for further decision making.) Plan PLAN: Legal decision maker: At this time his previous healthcare surrogate names his late as his primary and his daughter Melina as his secondary healthcare surrogate. There is reportedly a new healthcare surrogate completed but not available to us at this time. By [place] statutes we would abide by the previous healthcare surrogate having Melina as the decision-maker. Melina is aware that a recent descent with her father had caused him to change his mind and she and her sister Emely have requested that decision making be done by their sister Fabi, as they state that that is consistent with their father's wishes. Goals: Aggressive at this time pending arrival of the family at bedside. CODE STATUS: FULL CODE SYMPTOMS: * Vomiting: He was admitted with hematemesis and currently has an NG tube placed to low intermittent wall suction with dark brownish appearing drainage. Ondansetron is available. The patient remains on a Protonix and an octreotide drip. * Depression: Patient has been significantly depressed since the loss of his and had resumed heavy alcohol use. He told his daughter believes that he did not plan to pursue liver transplant and that he did not "wish to sober" . I have contacted the [employer] to arrange a tour director visit for [facility]raments [facility] the sick at the family's request and will continue to pursue social support if he stabilizes clinically. SUMMARY This is a 62-year-old male with a long history of heavy alcohol use, end-stage liver disease, cirrhosis, esophageal varices, portal hypertension, splenomegaly and recurrent bleeding. He is now hemodynamically unstable on vasopressors and ventilator support. Transfer has been requested from [place] to the [facility] for placement of a Rohan tube in case of recurrent esophageal bleeding. He is at high risk for bleeding due to ESLD, pancytopenia and coagulopathy. His daughters are traveling to the area and should be available within the next 24-48 hours for further decision making. He would be hospice appropriate if goals are consistent. Palliative care will continue to follow the patient during hospital course as condition evolves, to assist patient/decision-maker with understanding of their medical conditions, weighing benefits/burdens of treatment options, for clarification of goals of treatment. Additionally will assist with any symptoms of palliative concern. . Time Spent Time Periods: 13:15-14:15 Total Floor Time (mins): 90 >50% Counseling/Coord of Care: Yes Thank you for the opportunity to participate in the care of Mr. Ndiaye. Attestation To help prompt me to consider important information that might be impacting today's encounter and assessment, information from prior notes written by myself or my colleagues may have been "brought forward" into today's note. My signature on this note, however, is an attestation that I personally performed the exam, history, and/or decision-making noted today, and, unless otherwise indicated, the interactions with patient, family, and staff as well as the review of records all occurred today. I also attest that the listed assessment and stated plan reflect my best clinical judgment today based on the combination of historical information, prior notes, and today's exam/ interactions. When time spent is documented, it refers only to time spent today by the signer, or if indicated, combined time spent today by collaborating physician/nurse practitioner. . Codi Norman Dec 25, 2017 1:48 pm
[2017-12-25 16:23] LABS: HEMATOCRIT 29.1 % (39.0-51.0); HEMOGLOBIN 10.6 GM/DL (13.0-17.0)
[2017-12-25 16:34] LABS: INTERNATIONAL NORMALIZED RATIO 1.4 RATIO; PROTHROMBIN TIME - PATIENT 14.5 SEC (9.8-11.6)
[2017-12-25 16:48] LABS: BICARBONATE 25.6 MEQ/L (21.0-32.0); CALCIUM 7.6 MG/DL (8.5-10.1); CREATININE 0.69 MG/DL (0.60-1.30)
[2017-12-25] MEDS: MULTIVITAMIN INJ 10 ML, THIAMINE INJ 100 MG, FOLIC ACID INJ 1 MG in SODIUM CHLORID 0.9%... IV SCH (18:00)
--- NOTE | 2017-12-25 19:34 | EKG ---
Date Performed: 12/24/2017 Time Performed: 17:45:08 PTAGE: 62 years EKG: Sinus rhythm LOW QRS VOLTAGE IN EXTREMITY LEADS ST DEVIATION AND MODERATE T-WAVE ABNORMALITY, CONSIDER ANTERIOR I SCHEMIA Since previous tracing, no significant change noted ABNORMAL ECG PREVIOUS TRACING : 12/11/2017 15.25 DOCTOR: Kenneth Chen Interpretating Date/Time 12/25/2017 19:33:24
[2017-12-25] MEDS: fentaNYL DRIP 250 ML IV PRN (22:30)
[2017-12-26] VITALS (34 sets, daily range): BP systolic 97–166; BP diastolic 54–86; PULSE 63–105; RESP 20–23; TEMP 97.8–99.1; O2SAT 93–100
[2017-12-26 01:27] LABS: HEMATOCRIT 29.4 % (39.0-51.0); HEMOGLOBIN 10.4 GM/DL (13.0-17.0)
[2017-12-26] MEDS: SODIUM CHLOR 0.9% 1000 ML INJ 1,000 ML IV SCH (03:34)
[2017-12-26] MEDS: PROPOFOL 1000 MG/100 ML INJ 100 ML IV PRN ×3 (03:34→21:35)
[2017-12-26] MEDS: OCTREOTIDE INJ 500 MCG in SODIUM CHLORID 0.9% 500 ML INJ 499.5 ML IV SCH ×2 (03:35→14:19)
[2017-12-26] MEDS: SODIUM CHLORIDE 0.9% FLUSH 10 ML FLUSH IV FLUSH SCH ×3 (03:36→09:00)
[2017-12-26] MEDS: CHLORHEXIDINE 0.12% (ORAL KIT) 15 ML CUP MT SCH ×2 (03:36→08:00)
[2017-12-26] MEDS: RESP: ALBUTEROL 2.5 MG/IPRATROPIUM 0.5 MG NEB (SCH) INH ×4 (03:51→19:41)
--- NOTE | 2017-12-26 03:52 | RADRPT ---
EXAM DATE/TIME: 12/26/2017 01:56 [facility] COMPARISON: CHEST SINGLE AP, December 24, 2017, 19:30. INDICATIONS : Short of breath. MEDICAL HISTORY : Hypertension. Cirrhosis. anemia, esophageal varices SURGICAL HISTORY : chest tube. ENCOUNTER: Subsequent ACUITY: 1 week PAIN SCORE: 0/10 LOCATION: Bilateral chest FINDINGS: Endotracheal tube tip in good position. A central line in superior vena cava. NG enters stomach. Bila teral effusions, right greater than left with basilar airspace disease. There is no pneumothorax. CONCLUSION: 1. Pleural effusions, right greater than left with basilar airspace consolidation. Endotracheal tube, nasogastric tube and left central line in good position. Findings similar to December 24. Toño Glez MD on December 26, 2017 at 3:48 Board Certified Radiologist. This report was verified electronically.
[2017-12-26] MEDS: CHLORHEXIDINE GLUCONATE 2 % 1 PACK (2 CLOTHS) TOP SCH (04:00)
[2017-12-26 05:12] LABS: AUTOMATED NEUTROPHIL # 2.5 TH/MM3 (1.8-7.7); BASOPHIL % 0.3 % (0.0-2.0); EOSINOPHIL # 0.1 TH/MM3 (0-0.4); EOSINOPHIL % 3.9 % (0.0-4.0); HEMATOCRIT 29.5 % (39.0-51.0); HEMOGLOBIN 10.5 GM/DL (13.0-17.0); LYMPH % 9.8 % (9.0-44.0); LYMPHOCYTE # 0.3 TH/MM3 (1.0-4.8); MEAN CELL VOLUME 89.8 FL (80.0-100.0); MEAN CORPUSCULAR HEMOGLOBIN 31.9 PG (27.0-34.0); MEAN CORPUSCULAR HGB CONC 35.5 % (32.0-36.0); MONO % 12.1 % (0.0-8.0); MONOCYTE # 0.4 TH/MM3 (0-0.9); NEUT % 73.9 % (16.0-70.0); PLATELET COUNT 34 TH/MM3 (150-450); RED BLOOD COUNT 3.28 MIL/MM3 (4.50-5.90); RED CELL DISTRIBUTION WIDTH 18.8 % (11.6-17.2); WHITE BLOOD COUNT 3.4 TH/MM3 (4.0-11.0)
[2017-12-26 05:22] LABS: ALBUMIN 2.1 GM/DL (3.4-5.0); BICARBONATE 23.6 MEQ/L (21.0-32.0); CALCIUM 7.3 MG/DL (8.5-10.1); CALCIUM-PROTEIN CORRECTED 8.3 MG/DL (8.5-10.1); CREATININE 0.64 MG/DL (0.60-1.30); MAGNESIUM 1.8 MG/DL (1.5-2.5); PHOSPHORUS 1.4 MG/DL (2.5-4.9); TOTAL PROTEIN 5.2 GM/DL (6.4-8.2)
[2017-12-26 05:25] LABS: INTERNATIONAL NORMALIZED RATIO 1.6 RATIO; PROTHROMBIN TIME - PATIENT 16.5 SEC (9.8-11.6)
[2017-12-26] MEDS: VASOPRESSIN INJ 40 UNITS in DEXTROSE 5% IN WATER 100ML INJ 98 ML IV SCH ×4 (07:00→23:00)
--- NOTE | 2017-12-26 08:20 | HHI.CCPN ---
Subjective Remarks/Hospital Course 62 yo male. Date of admission 12/24/2017. Consultation 12/24/2017. Past medical history includes liver cirrhosis with recurrent upper GI bleeding. He was diagnosed 04/11 with liver cirrhosis. He states he quit drinking alcohol that time he was followed at [facility] for liver transplantation evaluation. April 2017, upper GI bleeding - distal Russell's esophagus and grade 1 varices. Stomach no bladder ulcers. Mucosa does not appear edematous duodenum. Status post angiogram of the celiac, SMA revealed no hemorrhagic focus identified. No further bleeding. Patient was again admitted 08/13 for upper GI bleed. EGD revealed grade 1-2 septal varices in no active bleeding. Gastric varices in the fundus just 2 cm GE junction actively squirting blood. Banding not possible so injected with 6 cc of epinephrine to stop the bleeding. Large clots and stomach. Remain intubated on octreotide and Protonix drips. Recommended if continued bleeding need to consider for TIPS. Most recently was admitted December 11, 2017 with alcohol toxicity. His has recently and he has drinking alcohol again. His alcohol levels currently 234. He presented today with upper GI bleeding. He is noted to be pancytopenic in with a white blood cell count of 3.8. Hemoglobin 7.1 and platelets of 30. INR is 1.9. AST is elevated. Alcohol level is 234. Patient received 6 L normal saline was started on a Protonix and octreotide drip. He remained hypotensive and peripheral vasopressors were started. Tail Puller was consulted along with GI. Due to the upper GI bleed decision was made to secure the airway with oral tracheal intubation and placement of central line to receive rapid transfusion. I discussed this with daughter Fabi Ndiaye [phone] and she is in agreement with aggressive plans at the present time. I described to her d- dimer nature of his current clinical situation and she wished to be made aware of any medical decisions that need to be made. Kvng) did make her the healthcare proxy at this time. Subjective 12/25: Transfused 6 PRBCs, 2 FFP and 2 platelets overnight. Currently norepinephrine at 5 mcg/m and vasopressin 0.04 units per minute. Afebrile. Arousable on the ventilator. We'll transfuse FFP, cryoprecipitate and platelets again this AM 12/26 Patient remains intubated and sedation . On Octreotide and Protonix drips. In addition he is on Levopehd 1 saul and Vasopressin0.04. NGT ahd approx 200ml coffee ground gastric output, Objective Vital Signs Date Time Temp Pulse Resp B/P (MAP) Pulse Ox O2 Delivery O2 Flow Rate FiO2 12/26/17 08:01 96 40 12/26/17 07:00 66 20 107/61 (76) 12/25/17 20:00 98.8 12/24/17 16:52 Nasal Cannula 2.00 Intake and Output 12/26/17 12/26/17 12/27/17 08:00 16:00 00:00 Intake Total 931 ml Balance 931 ml Result Diagram: 12/26/17 0435 12/26/17 0435 Other Results Laboratory Tests Test 12/25/17 09:10 12/25/17 15:15 12/25/17 17:15 12/25/17 22:50 Blood Gas Puncture Site RT RADIAL Blood Gas Patient Temperature 37.0 Blood Gas HCO3 22 mmol/L Blood Gas Base Excess -1.7 mmol/L Blood Gas Oxygen Saturation 96 % Arterial Blood pH 7.42 Arterial Blood Partial Pressure CO2 35 mmHg Arterial Blood Partial Pressure O2 103 mmHg Arterial Blood Oxygen Content 14.8 Vol % Arterial Blood Carboxyhemoglobin 1.6 % Arterial Blood Methemoglobin 1.3 % Blood Gas Hemoglobin 10.9 G/DL Oxygen Delivery Device VENTILATOR Blood Gas Ventilator Setting 500/10/PEEP 5 Blood Gas Inspired Oxygen 50 % Hemoglobin 10.6 GM/DL Hematocrit 29.1 % Prothrombin Time 14.5 SEC Prothromb Time International Ratio 1.4 RATIO Activated Partial Thromboplast Time 30.8 SEC Fibrinogen 209 mg/dL Blood Urea Nitrogen 15 MG/DL Creatinine 0.69 MG/DL Random Glucose 136 MG/DL Calcium Level 7.6 MG/DL Sodium Level 146 MEQ/L Potassium Level 3.7 MEQ/L Chloride Level 114 MEQ/L Carbon Dioxide Level 25.6 MEQ/L Anion Gap 6 MEQ/L Estimat Glomerular Filtration Rate 116 ML/MIN Lactic Acid Level 2.0 mmol/L Nasal Screen MRSA (PCR) MRSA NOT DETECTED Test 12/26/17 01:00 12/26/17 04:35 12/26/17 05:00 Hemoglobin 10.4 GM/DL 10.5 GM/DL Hematocrit 29.4 % 29.5 % Lactic Acid Level 2.0 mmol/L 2.0 mmol/L White Blood Count 3.4 TH/MM3 Red Blood Count 3.28 MIL/MM3 Mean Corpuscular Volume 89.8 FL Mean Corpuscular Hemoglobin 31.9 PG Mean Corpuscular Hemoglobin Concent 35.5 % Red Cell Distribution Width 18.8 % Platelet Count 34 TH/MM3 Mean Platelet Volume 7.0 FL Neutrophils (%) (Auto) 73.9 % Lymphocytes (%) (Auto) 9.8 % Monocytes (%) (Auto) 12.1 % Eosinophils (%) (Auto) 3.9 % Basophils (%) (Auto) 0.3 % Neutrophils # (Auto) 2.5 TH/MM3 Lymphocytes # (Auto) 0.3 TH/MM3 Monocytes # (Auto) 0.4 TH/MM3 Eosinophils # (Auto) 0.1 TH/MM3 Basophils # (Auto) 0.0 TH/MM3 CBC Comment AUTO DIFF Prothrombin Time 16.5 SEC Prothromb Time International Ratio 1.6 RATIO Activated Partial Thromboplast Time 33.8 SEC Fibrinogen 232 mg/dL Blood Urea Nitrogen 15 MG/DL Creatinine 0.64 MG/DL Random Glucose 138 MG/DL Total Protein 5.2 GM/DL Albumin 2.1 GM/DL Calcium Level 7.3 MG/DL Phosphorus Level 1.4 MG/DL Magnesium Level 1.8 MG/DL Alkaline Phosphatase 63 U/L Aspartate Amino Transf (AST/SGOT) 39 U/L Alanine Aminotransferase (ALT/SGPT) 21 U/L Total Bilirubin 6.0 MG/DL Sodium Level 148 MEQ/L Potassium Level 3.5 MEQ/L Chloride Level 115 MEQ/L Carbon Dioxide Level 23.6 MEQ/L Anion Gap 9 MEQ/L Estimat Glomerular Filtration Rate 127 ML/MIN Protein Corrected Calcium 8.3 MG/DL Total Creatine Kinase 51 U/L Ammonia 180 MCMOL/L Imaging Last Impressions Chest X-Ray 12/26/17 0600 Signed Impressions: Service Date/Time: Tuesday, December 26, 2017 01:56 - CONCLUSION: 1. Pleural effusions, right greater than left with basilar airspace consolidation. Endotracheal tube, nasogastric tube and left central line in good position. Findings similar to December 24. Toño Glez MD Liver Ultrasound 12/25/17 0000 Signed Impressions: Service Date/Time: Monday, December 25, 2017 09:17 - CONCLUSION: 1. Cirrhotic appearing liver with mild splenomegaly consistent with portal hypertension. The portal vein is patent with hepatopedal flow. 2. Gallbladder wall thickening with small amount of sludge and dominant gallstone. These findings are typically seen in patient's with chronic liver condition. 3. Incidental note of small bilateral pleural effusions. Jorge Roche MD Objective Remarks GENERAL: 62 -year-old male currently orotracheally intubated SKIN: Warm and dry. No rash HEAD: Atraumatic. Normocephalic. EYES: Pupils equal and round about 3 mm bilaterally and reactive. + scleral icterus. No injection or drainage. ENT: Blood from oral mucosa during intubation notice. Positive petechiae. NECK: Trachea midline. No JVD. CARDIOVASCULAR: Regular rate and rhythm. S1, S2. No S4. RESPIRATORY: No accessory muscle use. Clear to auscultation. Breath sounds equal bilaterally. GASTROINTESTINAL: Abdomen slightly taut, nontender. Hypoactive bowel sounds are appreciated. MUSCULOSKELETAL: Extremities with trace lower extremity edema. No obvious deformities. NEUROLOGICAL: Awake and alert. No obvious cranial nerve deficits. Motor grossly within normal limits. Five out of 5 muscle strength in the arms and legs. Normal speech prior to intubation 12/24. Date of Insertion: Dec 24, 2017 Line: Central Venous Catheter Side: Left Location: Internal, Jugular A/P Assessment and Plan Neuro/Psych: EtOH intoxication Currently on fentanyl drips in 160 mg an hour for sedation/analgesia while intubated Goal of RASS -2 Daily sedation vacation Ofirmev 1 g IV every 8 hours when necessary fever EtOH level was 234. on vitamin bag daily for 3 days and switch to thiamine 100 mg IV daily tomorrow, Follow-up on ammonia level 180 today. History of toxic metabolic encephalopathy secondary to elevated ammonia CV: Sinus tachycardia secondary to acute blood loss Currently on norepinephrine at 1 g per minute and vasopressin 0.04 units per minute to maintain MAP>65mmHg On normal saline at 100 cc an hour Resp: Acute hypoxemic respiratory failure History of loculated right pleural effusion status post right chest tube/Pleurx catheter PRVC 20/500/12/01/49 Ventilator bundle Albuterol/ipratropium aerosols every 6 hours with albuterol aerosols every 2 hours. Dyspnea Maintain head of bed at 30 CXR: Basilar airspace consolidation GI: Recurrent upper GI bleeding - negative gastroduodenal artery evaluation 05/13 History of esophageal varices - grade 1-2. Most recently epinephrine injected Portal gastropathy Portal hypertension Splenomegaly EtOH cirrhosis History of Alicia-Dyson tear History of Russell's esophagus Hyperammonia Hypoalbuminemia Elevated total bilirubin Currently NPO On pantoprazole drip at 8 mg an hour and Sandostatin drip at 50 g an hour ceftriaxone 1 g daily for upper GI bleed GI following Dr. Marie. s/p EGD: Probable gastric varices, portal gastropathy and Russell;s esophagus Change lactulose 30 cc Q6 and Xifaxan 550 mill grams twice a day for elevated ammonia level. Follow-up ammonia level 180 today : Mcdonald catheter for accurate I's and O's in a critically ill patient Add Free water 250ml Q8 monitor sodium level. 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 Hernandez and Narcisa for intermittent transfusions and Neupogen injections during prior hospitalizations Haptoglobin slightly low at 29. LDH normal. ID: Monitor for infection On ceftriaxone for upper GI bleed MSK: PT evaluate and treat Access Left IJ CVL day #[address] 12/24 Prophylaxis - GI - pantoprazole drip/octreotide drip - DVT - SCD/pharmacological prophylaxis contraindicated with upper GI bleed Palliative care is following Critical Care: The total critical care time was 30 minutes. Time to perform other separately billable procedures was not included in the critical care time. Radha Null MD Dec 26, 2017 08:20
[2017-12-26 08:22] LABS: BANDS 35 % (0-6); LYMPHOCYTES 2 % (9-44); MONOCYTES 3 % (0-8); NEUTROPHIL # MANUAL DIFF 3.1 TH/MM3 (1.8-7.7); POLYS (SEG NEUTROPHILS) 57 % (16-70)
[2017-12-26] MEDS: FREE WATER G-TUBE SCH ×3 (08:30→21:37)
[2017-12-26] MEDS: PANTOPRAZOLE INJ 80 MG in SODIUM CHLORIDE 0.9% INJ 100 ML IV SCH ×2 (09:33→16:32)
[2017-12-26] MEDS: RIFAXIMIN 550 MG TAB PO SCH ×2 (09:33→21:36)
[2017-12-26] MEDS: LACTULOSE SYRUP 20 GM/30 ML CUP PO SCH ×3 (09:54→21:36)
[2017-12-26 10:03] LABS: HEMATOCRIT 28.8 % (39.0-51.0); HEMOGLOBIN 10.1 GM/DL (13.0-17.0)
[2017-12-26] MEDS: ARTIFICIAL TEARS OPTH SOLN 15 ML BTL EACH EYE SCH (14:00)
[2017-12-26] MEDS: fentaNYL DRIP 250 ML IV PRN (14:14)
[2017-12-26 14:18] LABS: HEMATOCRIT 28.8 % (39.0-51.0); HEMOGLOBIN 9.9 GM/DL (13.0-17.0)
--- NOTE | 2017-12-26 15:24 | HHI.HCPN ---
Reason for visit a. To assist with evaluation and management of symptoms including: Vomiting , depression b. To assist medical decision maker(s) with: better understanding of current medical conditions; weighing benefits/burdens of medical treatment options; making medical treatment decisions. Subjective/Interval History 62-year-old male admitted for esophageal bleeding, hematemesis, remains intubated in ICU. Currently undergoing sedation vacation to evaluate neurological status. He does respond to voice and follows commands but doses off quickly. He presented with an ammonia level of 117 and has been receiving Xifaxan 550 mg twice a day, however ammonia level was 180 this morning and lactulose 30 mL via G-tube every 6 hours was added. Hemoglobin and hematocrit checks every 6 hours show relatively stable hemoglobin at 10.5 this morning, and 9.9 at 1400 lab draw. Lactate has now normalized down to 1.8. He remains on the octreotide and Protonix drips. Vasopressin is currently on hold. Levophed has been weaned off. OG tube is draining dark brown fluid to low wall suction. He has drained approximately 200 mL in the past 6 hours. He remains intubated on mechanical ventilation. . Family/friend interactions His daughter Fabi arrived from [place] and her sister, Emely is in route from [place]. His DURABLE POWER OF BIT SANDER, Sara Mendoza also attended. They have contacted the patient's brother and sister from [place] and they are flying in . His sister from [place] is flying in tomorrow. Family discussion was held with Dr. Gonzalez who had taken care of the patient on several previous admissions and had held multiple conversations with him. After discussion the family determined that they would not perform CPR or do shock for resuscitation, but would continue ventilator support, unless patient was able to be medically extubated, but would not wish reintubation if he failed. It is their wish to allow family to see him if possible, but they do not wish to subject him to treatments which could cause him discomfort and would not change the end-stage liver disease. We discussed his past social habits and it is the daughter's assertion after many years of attempts and in light of recent conversations with her father that he does not wish to stop drinking and will not. His state of liver disease to include his current state of auto-anticoagulation was reviewed and the family understands that he is at an inordinately high risk of bleeding and feels that further aggressive interventions will be likely to do him more harm than good. At this time they state they will consider comfort measures after the family visits depending on patient's current clinical status at that time. . Advance Directives Living Will: Copy in medical record Health Care Surrogate: Copy in medical record (reportedly, recently changed to assign his daughter, Fabi as his primary HCS and Rebekah Reji as his alternate. Trying to locate paperwork, completed at [place] within last 1-2 weeks. ) Durable Power of Asbestos Remover: Completed, but not made available Advance Directive Specifics Date completed: 04/22/06 Health Care Surrogate(s): By the telephone consent received from Melina Ndiaye and Emely Ndiaye, the patient's 2 younger daughters, they have ceded the decision making to their sister, Fabi, which is consistent with the wishes of the patient expressed by Rebekah Mendoza, the patient's DPOA and longtime caregiver, that the patient's most recent wish was that Fabi be the primary healthcare surrogate and Rebekah serve as the alternate. At this time the wheeze and agrees to serve as health care surrogate and is in contact with both of her sisters and Rebekah to assure that the patient's wishes, as he has expressed them to his friends and family, are honored. . Documented care wishes: Patient has completed a living will stating that in case he has a terminal, end- stage condition or a persistent vegetative state that he be allowed to without life-prolonging procedures, be given medication to alleviate pain and enhance comfort, not to be kept alive by ventilator's or other artificial life support nor to be tube fed or artificially hydrated to sustain life. . Significant change in goals: Goals remain consistent with patient's living will. . Objective Vital Signs Date Time Temp Pulse Resp B/P (MAP) Pulse Ox O2 Delivery O2 Flow Rate FiO2 12/26/17 14:00 86 12/26/17 12:00 90 12/26/17 12:00 40 12/26/17 12:00 98.3 103 20 126/65 (85) 93 12/26/17 11:08 97 40 12/26/17 10:25 90 20 98 12/26/17 10:09 93 100/52 12/26/17 10:00 96 12/26/17 10:00 96 20 117/58 (77) 97 12/26/17 09:00 97.8 93 20 101/55 (70) 98 12/26/17 08:01 96 40 12/26/17 08:00 97.8 67 20 109/57 (74) 96 12/26/17 08:00 40 12/26/17 08:00 67 12/26/17 08:00 67 109/57 12/26/17 08:00 67 109/57 12/26/17 07:00 66 20 107/61 (76) 96 12/26/17 07:00 66 107/61 12/26/17 06:00 96 12/26/17 04:00 69 20 140/73 (95) 94 12/26/17 04:00 69 12/26/17 03:50 96 40 12/26/17 03:45 78 20 163/86 (111) 96 12/26/17 03:30 77 20 166/81 (109) 96 12/26/17 03:15 76 20 164/85 (111) 96 12/26/17 03:00 75 20 155/74 (101) 96 12/26/17 02:45 72 20 146/78 (100) 96 12/26/17 02:30 66 20 139/72 (94) 95 12/26/17 02:15 70 20 132/66 (88) 94 12/26/17 02:00 63 20 145/76 (99) 95 12/26/17 02:00 63 12/26/17 01:45 63 20 137/73 (94) 96 12/26/17 01:30 70 20 155/72 (99) 96 12/26/17 01:15 72 20 125/69 (87) 95 12/26/17 01:00 75 20 135/75 (95) 95 12/26/17 01:00 95 40 12/26/17 00:45 74 20 142/76 (98) 94 12/26/17 00:30 67 20 134/70 (91) 95 12/26/17 00:15 68 20 132/67 (88) 95 12/26/17 00:00 80 12/26/17 00:00 80 20 139/73 (95) 94 12/25/17 23:45 79 20 144/75 (98) 95 12/25/17 23:30 79 20 145/78 (100) 96 12/25/17 23:15 77 20 136/73 (94) 96 12/25/17 23:00 78 20 137/75 (95) 95 12/25/17 22:45 77 20 131/72 (91) 96 12/25/17 22:32 73 141/85 12/25/17 22:30 73 20 132/69 (90) 94 12/25/17 22:15 81 20 150/74 (99) 95 12/25/17 22:00 80 12/25/17 22:00 80 20 152/78 (102) 95 12/25/17 21:45 80 20 154/75 (101) 95 12/25/17 21:30 80 20 155/75 (101) 95 12/25/17 21:29 94 40 12/25/17 21:15 79 20 157/81 (106) 95 12/25/17 21:00 77 20 135/77 (96) 94 12/25/17 20:00 98.8 80 20 141/72 (95) 95 12/25/17 20:00 81 12/25/17 19:30 95 40 12/25/17 18:00 76 12/25/17 18:00 98.3 80 22 148/72 (97) 99 12/25/17 18:00 76 126/58 12/25/17 16:33 97 40 12/25/17 16:00 76 12/25/17 16:00 98.0 77 22 138/66 (90) 99 12/25/17 15:44 98.0 77 22 140/66 (90) 99 12/25/17 15:06 76 Intake & Output 12/26/17 12/26/17 07:00 19:00 Intake Total 931 ml 965 ml Balance 931 ml 965 ml Intake IV Total 931 ml 701 ml Platelets 264 ml . Physical Exam CONSTITUTIONAL/GENERAL: This is an adequately nourished patient, in no apparent distress. TUBES/LINES/DRAINS: Left IJ CVL, ETT, NGT, Mcdonald EYES: Pupils equal and round and reactive. No scleral icterus. No injection or drainage. Fundi not examined. CARDIOVASCULAR: Regular rate and rhythm without murmurs, gallops, or rubs. No JVD. Peripheral pulses symmetric. RESPIRATORY/CHEST: Symmetric, unlabored respirations. Clear to auscultation. Breath sounds equal bilaterally. No wheezes, rales, or rhonchi. GASTROINTESTINAL: Abdomen distended, tender to palpation (patient winced with palpation), hypoactive bowel sounds, positive splenomegaly. GENITOURINARY: Without palpable bladder distension. Mcdonald catheter in place. MUSCULOSKELETAL: Extremities without clubbing, cyanosis, or edema. No mottling or clubbing. NEUROLOGICAL: Intubated, sedated. PSYCHIATRIC: Sedated. . Diagnostic Tests Laboratory Laboratory Tests Test 12/24/17 01:05 12/24/17 14:15 12/24/17 19:45 12/24/17 21:32 Nasal Screen MRSA (PCR) MRSA NOT DETECTED (NOT White Blood Count 3.8 TH/MM3 (4.0-11.0) Red Blood Count 1.94 MIL/MM3 (4.50-5.90) Hemoglobin 7.1 GM/DL (13.0-17.0) 7.9 GM/DL (13.0-17.0) Hematocrit 21.5 % (39.0-51.0) 23.2 % (39.0-51.0) Mean Corpuscular Volume 110.7 FL (80.0-100.0) Mean Corpuscular Hemoglobin 36.8 PG (27.0-34.0) Mean Corpuscular Hemoglobin Concent 33.2 % (32.0-36.0) Red Cell Distribution Width 16.6 % (11.6-17.2) Platelet Count 38 TH/MM3 (150-450) Mean Platelet Volume 7.5 FL (7.0-11.0) Neutrophils (%) (Auto) 63.6 % (16.0-70.0) Lymphocytes (%) (Auto) 20.4 % (9.0-44.0) Monocytes (%) (Auto) 12.0 % (0.0-8.0) Eosinophils (%) (Auto) 3.2 % (0.0-4.0) Basophils (%) (Auto) 0.8 % (0.0-2.0) Neutrophils # (Auto) 2.4 TH/MM3 (1.8-7.7) Lymphocytes # (Auto) 0.8 TH/MM3 (1.0-4.8) Monocytes # (Auto) 0.5 TH/MM3 (0-0.9) Eosinophils # (Auto) 0.1 TH/MM3 (0-0.4) Basophils # (Auto) 0.0 TH/MM3 (0-0.2) CBC Comment AUTO DIFF Differential Comment AUTO DIFF CONFIRMED Prothrombin Time 19.7 SEC (9.8-11.6) Prothromb Time International Ratio 1.9 RATIO Blood Urea Nitrogen 8 MG/DL (7-18) Creatinine 0.64 MG/DL (0.60-1.30) Random Glucose 105 MG/DL (74-106) Total Protein 5.7 GM/DL (6.4-8.2) Albumin 1.9 GM/DL (3.4-5.0) Calcium Level 7.3 MG/DL (8.5-10.1) Magnesium Level 1.6 MG/DL (1.5-2.5) Alkaline Phosphatase 83 U/L (45-117) Aspartate Amino Transf (AST/SGOT) 50 U/L (15-37) Alanine Aminotransferase (ALT/SGPT) 21 U/L (12-78) Total Bilirubin 4.3 MG/DL (0.2-1.0) Sodium Level 143 MEQ/L (136-145) Potassium Level 3.8 MEQ/L (3.5-5.1) Chloride Level 106 MEQ/L (98-107) Carbon Dioxide Level 29.8 MEQ/L (21.0-32.0) Anion Gap 7 MEQ/L (5-15) Estimat Glomerular Filtration Rate 127 ML/MIN (>89) Protein Corrected Calcium 8.1 MG/DL (8.5-10.1) Total Creatine Kinase 51 U/L (39-308) Ethyl Alcohol Level 234 MG/DL (0-5) Blood Gas Puncture Site RT RADIAL Blood Gas Patient Temperature 37.0 Blood Gas HCO3 20 mmol/L (22-26) Blood Gas Base Excess -5.9 mmol/L (-2-2) Blood Gas Oxygen Saturation 97 % (90-100) Arterial Blood pH 7.26 (7.380-7.420) Arterial Blood Partial Pressure CO2 46 mmHg (38-42) Arterial Blood Partial Pressure O2 397 mmHg (61-120) Arterial Blood Oxygen Content 9.7 Vol % (12.0-20.0) Arterial Blood Carboxyhemoglobin 1.9 % (0-4) Arterial Blood Methemoglobin 1.2 % (0-2) Blood Gas Hemoglobin 6.4 G/DL (12.0-16.0) Oxygen Delivery Device VENTILATOR Blood Gas Ventilator Setting [place]/AC Blood Gas Inspired Oxygen 100 % Blood Smear Pathologist Review Haptoglobin 29 MG/DL (30-200) Activated Partial Thromboplast Time 32.2 SEC (24.3-30.1) Fibrinogen 117 mg/dL (227-377) Lactic Acid Level 5.4 mmol/L (0.4-2.0) Lactate Dehydrogenase 222 U/L (87-241) Test 12/25/17 03:10 12/25/17 04:56 12/25/17 09:10 12/25/17 15:15 Hemoglobin 8.0 GM/DL (13.0-17.0) 8.9 GM/DL (13.0-17.0) 10.6 GM/DL (13.0-17.0) Hematocrit 23.4 % (39.0-51.0) 25.4 % (39.0-51.0) 29.1 % (39.0-51.0) Lactic Acid Level 4.9 mmol/L (0.4-2.0) 4.6 mmol/L (0.4-2.0) White Blood Count 3.7 TH/MM3 (4.0-11.0) Red Blood Count 2.68 MIL/MM3 (4.50-5.90) Mean Corpuscular Volume 94.7 FL (80.0-100.0) Mean Corpuscular Hemoglobin 33.2 PG (27.0-34.0) Mean Corpuscular Hemoglobin Concent 35.0 % (32.0-36.0) Red Cell Distribution Width 21.0 % (11.6-17.2) Platelet Count 44 TH/MM3 (150-450) Mean Platelet Volume 7.5 FL (7.0-11.0) Neutrophils (%) (Auto) 73.3 % (16.0-70.0) Lymphocytes (%) (Auto) 14.1 % (9.0-44.0) Monocytes (%) (Auto) 9.0 % (0.0-8.0) Eosinophils (%) (Auto) 3.0 % (0.0-4.0) Basophils (%) (Auto) 0.6 % (0.0-2.0) Neutrophils # (Auto) 2.8 TH/MM3 (1.8-7.7) Lymphocytes # (Auto) 0.5 TH/MM3 (1.0-4.8) Monocytes # (Auto) 0.3 TH/MM3 (0-0.9) Eosinophils # (Auto) 0.1 TH/MM3 (0-0.4) Basophils # (Auto) 0.0 TH/MM3 (0-0.2) CBC Comment AUTO DIFF Differential Comment AUTO DIFF CONFIRMED Prothrombin Time 15.9 SEC (9.8-11.6) 14.5 SEC (9.8-11.6) Prothromb Time International Ratio 1.6 RATIO 1.4 RATIO Activated Partial Thromboplast Time 27.1 SEC (24.3-30.1) 30.8 SEC (24.3-30.1) Blood Urea Nitrogen 12 MG/DL (7-18) 15 MG/DL (7-18) Creatinine 0.51 MG/DL (0.60-1.30) 0.69 MG/DL (0.60-1.30) Random Glucose 147 MG/DL (74-106) 136 MG/DL (74-106) Total Protein 4.7 GM/DL (6.4-8.2) Albumin 1.8 GM/DL (3.4-5.0) Calcium Level 7.2 MG/DL (8.5-10.1) 7.6 MG/DL (8.5-10.1) Phosphorus Level 2.9 MG/DL (2.5-4.9) Magnesium Level 1.6 MG/DL (1.5-2.5) Alkaline Phosphatase 56 U/L (45-117) Aspartate Amino Transf (AST/SGOT) 40 U/L (15-37) Alanine Aminotransferase (ALT/SGPT) 19 U/L (12-78) Total Bilirubin 6.1 MG/DL (0.2-1.0) Sodium Level 145 MEQ/L (136-145) 146 MEQ/L (136-145) Potassium Level 4.1 MEQ/L (3.5-5.1) 3.7 MEQ/L (3.5-5.1) Chloride Level 112 MEQ/L (98-107) 114 MEQ/L (98-107) Carbon Dioxide Level 22.1 MEQ/L (21.0-32.0) 25.6 MEQ/L (21.0-32.0) Anion Gap 11 MEQ/L (5-15) 6 MEQ/L (5-15) Estimat Glomerular Filtration Rate 165 ML/MIN (>89) 116 ML/MIN (>89) Protein Corrected Calcium 8.5 MG/DL (8.5-10.1) Ammonia 117 MCMOL/L (11-32) Amylase Level 14 U/L (25-115) Lipase 146 U/L (73-393) Thyroid Stimulating Hormone 3rd Gen 0.711 uIU/ML (0.358-3.740) Blood Gas Puncture Site RT RADIAL Blood Gas Patient Temperature 37.0 Blood Gas HCO3 22 mmol/L (22-26) Blood Gas Base Excess -1.7 mmol/L (-2-2) Blood Gas Oxygen Saturation 96 % (90-100) Arterial Blood pH 7.42 (7.380-7.420) Arterial Blood Partial Pressure CO2 35 mmHg (38-42) Arterial Blood Partial Pressure O2 103 mmHg (61-120) Arterial Blood Oxygen Content 14.8 Vol % (12.0-20.0) Arterial Blood Carboxyhemoglobin 1.6 % (0-4) Arterial Blood Methemoglobin 1.3 % (0-2) Blood Gas Hemoglobin 10.9 G/DL (12.0-16.0) Oxygen Delivery Device VENTILATOR Blood Gas Ventilator Setting 500/10/PEEP 5 Blood Gas Inspired Oxygen 50 % Fibrinogen 209 mg/dL (227-377) Test 12/25/17 17:15 12/25/17 22:50 12/26/17 01:00 12/26/17 04:35 Lactic Acid Level 2.0 mmol/L (0.4-2.0) 2.0 mmol/L (0.4-2.0) 2.0 mmol/L (0.4-2.0) Nasal Screen MRSA (PCR) MRSA NOT DETECTED (NOT Hemoglobin 10.4 GM/DL (13.0-17.0) 10.5 GM/DL (13.0-17.0) Hematocrit 29.4 % (39.0-51.0) 29.5 % (39.0-51.0) White Blood Count 3.4 TH/MM3 (4.0-11.0) Red Blood Count 3.28 MIL/MM3 (4.50-5.90) Mean Corpuscular Volume 89.8 FL (80.0-100.0) Mean Corpuscular Hemoglobin 31.9 PG (27.0-34.0) Mean Corpuscular Hemoglobin Concent 35.5 % (32.0-36.0) Red Cell Distribution Width 18.8 % (11.6-17.2) Platelet Count 34 TH/MM3 (150-450) Mean Platelet Volume 7.0 FL (7.0-11.0) Neutrophils (%) (Auto) 73.9 % (16.0-70.0) Lymphocytes (%) (Auto) 9.8 % (9.0-44.0) Monocytes (%) (Auto) 12.1 % (0.0-8.0) Eosinophils (%) (Auto) 3.9 % (0.0-4.0) Basophils (%) (Auto) 0.3 % (0.0-2.0) Neutrophils # (Auto) 2.5 TH/MM3 (1.8-7.7) Lymphocytes # (Auto) 0.3 TH/MM3 (1.0-4.8) Monocytes # (Auto) 0.4 TH/MM3 (0-0.9) Eosinophils # (Auto) 0.1 TH/MM3 (0-0.4) Basophils # (Auto) 0.0 TH/MM3 (0-0.2) CBC Comment AUTO DIFF Differential Total Cells Counted 100 Neutrophils % (Manual) 57 % (16-70) Band Neutrophils % 35 % (0-6) Lymphocytes % 2 % (9-44) Monocytes % 3 % (0-8) Eosinophils % 3 % (0-4) Neutrophils # (Manual) 3.1 TH/MM3 (1.8-7.7) Differential Comment FINAL DIFF MANUAL Platelet Estimate LOW (NORMAL) Platelet Morphology Comment NORMAL (NORMAL) Prothrombin Time 16.5 SEC (9.8-11.6) Prothromb Time International Ratio 1.6 RATIO Activated Partial Thromboplast Time 33.8 SEC (24.3-30.1) Fibrinogen 232 mg/dL (227-377) Blood Urea Nitrogen 15 MG/DL (7-18) Creatinine 0.64 MG/DL (0.60-1.30) Random Glucose 138 MG/DL (74-106) Total Protein 5.2 GM/DL (6.4-8.2) Albumin 2.1 GM/DL (3.4-5.0) Calcium Level 7.3 MG/DL (8.5-10.1) Phosphorus Level 1.4 MG/DL (2.5-4.9) Magnesium Level 1.8 MG/DL (1.5-2.5) Alkaline Phosphatase 63 U/L (45-117) Aspartate Amino Transf (AST/SGOT) 39 U/L (15-37) Alanine Aminotransferase (ALT/SGPT) 21 U/L (12-78) Total Bilirubin 6.0 MG/DL (0.2-1.0) Sodium Level 148 MEQ/L (136-145) Potassium Level 3.5 MEQ/L (3.5-5.1) Chloride Level 115 MEQ/L (98-107) Carbon Dioxide Level 23.6 MEQ/L (21.0-32.0) Anion Gap 9 MEQ/L (5-15) Estimat Glomerular Filtration Rate 127 ML/MIN (>89) Protein Corrected Calcium 8.3 MG/DL (8.5-10.1) Total Creatine Kinase 51 U/L (39-308) Test 12/26/17 05:00 12/26/17 09:00 12/26/17 09:10 12/26/17 14:00 Ammonia 180 MCMOL/L (11-32) Hemoglobin 10.1 GM/DL (13.0-17.0) 9.9 GM/DL (13.0-17.0) Hematocrit 28.8 % (39.0-51.0) 28.8 % (39.0-51.0) Lactic Acid Level 1.9 mmol/L (0.4-2.0) 1.8 mmol/L (0.4-2.0) . Result Diagram: 12/26/17 1400 12/26/17 0435 Imaging Last Impressions Chest X-Ray 12/26/17 0600 Signed Impressions: Service Date/Time: Tuesday, December 26, 2017 01:56 - CONCLUSION: 1. Pleural effusions, right greater than left with basilar airspace consolidation. Endotracheal tube, nasogastric tube and left central line in good position. Findings similar to December 24. Toño Glez MD Liver Ultrasound 12/25/17 0000 Signed Impressions: Service Date/Time: Monday, December 25, 2017 09:17 - CONCLUSION: 1. Cirrhotic appearing liver with mild splenomegaly consistent with portal hypertension. The portal vein is patent with hepatopedal flow. 2. Gallbladder wall thickening with small amount of sludge and dominant gallstone. These findings are typically seen in patient's with chronic liver condition. 3. Incidental note of small bilateral pleural effusions. Jorge Roche MD . Procedures Orotracheal intubation 12/24/17 Left IJ central line placement 12/24/18 . Assessment and Plan Disease Oriented Problem List: (1) Abnormal LFTs (2) Septic shock (3) Hepatic failure (4) UGI bleed (5) Thrombocytopenia Symptom Scale: (1) Vomiting 0-10 Scale: Unable to quantify (patient intubated and sedated.) (2) Depression 0-10 Scale: Unable to quantify (patient intubated and sedated.) Pertinent Non-Medical Issues Psychosocial:Born in [place] but lived in [place] for many years. He has one sister who lives in [place]. He has been living in [place] for over 25 years, currently resides in [place]. He has 3 daughters, Fabi, who lives in [place], Melina who lives in [place] and Emely who lives in [place]. His recently . Spiritual: He is [employer] and sacraments of the sick have been requested. Legal: He has a previous healthcare surrogate naming his late and his daughter Melina as healthcare surrogates. He has reportedly recently completed new advanced directives naming his daughter Fabi as his primary healthcare surrogate and Rebekah Mendoza as his alternate. We are attempting to locate that paperwork through [employer] information management, however in the meantime, I have spoken with all 3 daughters and Ms. Mendoza, all who agree that Fabi should be the decision-maker, as they know that is consistent with their father's wishes. Ethical issues impacting care: None noted. . Important Contacts Daughter: Fabi , Daughter: Melina Daughter: Emely Friend: Rebekah Mendoza, his reported DPOA . Prognosis His prognosis is poor. He is currently on mechanical ventilator requiring vasopressor support for hemodynamic stability. He has a known history of end- stage liver disease with esophageal varices and has recently resumed heavy alcohol intake after nearly a year of abstinence. He had previously been pursuing a liver transplant at the request of his late , but since her , he has stated to his daughters that he did not plan to go forth with the transplant. He has pancytopenia and coagulopathy. He is at high risk for continued bleeding and further complications. . Code Status: Full Code (pending arrival of the family for further decision making.) Plan PLAN: Legal decision maker: At this time his previous healthcare surrogate names his late as his primary and his daughter Melina as his secondary healthcare surrogate. There is reportedly a new healthcare surrogate completed but not available to us at this time. By [place] statutes we would abide by the previous healthcare surrogate having Melina as the decision-maker. Melina is aware that a recent descent with her father had caused him to change his mind and she and her sister Emely have requested that decision making be done by their sister Fabi, as they state that that is consistent with their father's wishes. Goals: Aggressive at this time pending arrival of the family at bedside. CODE STATUS: FULL CODE SYMPTOMS: * Vomiting: He was admitted with hematemesis and currently has an NG tube placed to low intermittent wall suction with dark brownish appearing drainage. Ondansetron is available. The patient remains on a Protonix and an octreotide drip. No continued vomiting at this time. * Depression: Patient has been significantly depressed since the loss of his and had resumed heavy alcohol use. He told his daughter believes that he did not plan to pursue liver transplant and that he did not "wish to sober" . I have contacted the music industry intern to arrange a distillery miller helper visit for sacraments of the sick at the family's request and will continue to pursue social support if he stabilizes clinically. His recently while on hospice, making him eligible for hospice bereavement services if clinically stabilizes. Palliative care will continue to follow the patient during hospital course as condition evolves, to assist patient/decision-maker with understanding of their medical conditions, weighing benefits/burdens of treatment options, for clarification of goals of treatment. Additionally will assist with any symptoms of palliative concern. . Time Spent Time Periods: 12:00-12:45 Total Floor Time (mins): 45 Face to Face Time (mins): 45 >50% Counseling/Coord of Care: Yes Attestation To help prompt me to consider important information that might be impacting today's encounter and assessment, information from prior notes written by myself or my colleagues may have been "brought forward" into today's note. My signature on this note, however, is an attestation that I personally performed the exam, history, and/or decision-making noted today, and, unless otherwise indicated, the interactions with patient, family, and staff as well as the review of records all occurred today. I also attest that the listed assessment and stated plan reflect my best clinical judgment today based on the combination of historical information, prior notes, and today's exam/ interactions. When time spent is documented, it refers only to time spent today by the signer, or if indicated, combined time spent today by collaborating physician/nurse practitioner. . Codi Norman Dec 26, 2017 3:24 pm
[2017-12-26 17:04] LABS: HEMATOCRIT 28.7 % (39.0-51.0)
[2017-12-26] MEDS: MULTIVITAMIN INJ 10 ML, THIAMINE INJ 100 MG, FOLIC ACID INJ 1 MG in SODIUM CHLORID 0.9%... IV SCH (17:46)
[2017-12-26] MEDS: cefTRIAXone INJ 1,000 MG in SODIUM CHLORIDE 0.9% INJ 100 ML IV SCH (21:36)
[2017-12-27] VITALS (23 sets, daily range): BP systolic 95–146; BP diastolic 52–65; PULSE 72–126; RESP 16–25; TEMP 98.2–98.8; O2SAT 95–100
[2017-12-27 02:12] LABS: HEMATOCRIT 28.7 % (39.0-51.0); HEMOGLOBIN 9.9 GM/DL (13.0-17.0)
[2017-12-27] MEDS: RESP: ALBUTEROL 2.5 MG/IPRATROPIUM 0.5 MG NEB (SCH) INH ×4 (03:47→21:46)
[2017-12-27] MEDS: CHLORHEXIDINE GLUCONATE 2 % 1 PACK (2 CLOTHS) TOP SCH (04:00)
--- NOTE | 2017-12-27 05:54 | RADRPT ---
EXAM DATE/TIME: 12/27/2017 04:24 [facility] COMPARISON: CHEST SINGLE AP, December 26, 2017, 1:56. INDICATIONS : Shortness of breath. MEDICAL HISTORY : Hypertension. Esophageal varices. Paracentesis. Kidney stones. Liver disease, ETOH. Cirrhosis. Thromb ocytopenia SURGICAL HISTORY : Paracentesis. Chest tube; right. Paracentesis. Bone spur right elbow ENCOUNTER: Subsequent ACUITY: 2 weeks PAIN SCORE: Non-responsive. LOCATION: Bilateral chest FINDINGS: A single view of the chest demonstrates a central line in superior vena cava. Endotracheal tube in go od position. NG enters stomach. Bilateral mostly basilar airspace disease and pleural effusions, righ t greater than left are similar to December 26. CONCLUSION: 1. Support apparatus unchanged. Bilateral airspace disease and pleural effusions present, slightly wo rse on the left since December 26. Toño Glez MD on December 27, 2017 at 5:49 Board Certified Radiologist. This report was verified electronically.
[2017-12-27] MEDS: FREE WATER G-TUBE SCH ×3 (06:00→21:03)
[2017-12-27 06:23] LABS: INTERNATIONAL NORMALIZED RATIO 1.7 RATIO; PROTHROMBIN TIME - PATIENT 17.5 SEC (9.8-11.6)
[2017-12-27 06:24] LABS: HEMOGLOBIN 10.2 GM/DL (13.0-17.0); MEAN CORPUSCULAR HEMOGLOBIN 32.2 PG (27.0-34.0); MEAN CORPUSCULAR HGB CONC 35.1 % (32.0-36.0); MEAN PLATELET VOLUME 7.5 FL (7.0-11.0); PLATELET COUNT 28 TH/MM3 (150-450); RED BLOOD COUNT 3.15 MIL/MM3 (4.50-5.90); RED CELL DISTRIBUTION WIDTH 19.1 % (11.6-17.2); WHITE BLOOD COUNT 2.4 TH/MM3 (4.0-11.0)
[2017-12-27] MEDS: OCTREOTIDE INJ 500 MCG in SODIUM CHLORID 0.9% 500 ML INJ 499.5 ML IV SCH ×3 (06:31→14:16)
[2017-12-27] MEDS: PROPOFOL 1000 MG/100 ML INJ 100 ML IV PRN ×2 (06:32→20:52)
[2017-12-27] MEDS: fentaNYL DRIP 250 ML IV PRN (06:33)
[2017-12-27 06:37] LABS: ALBUMIN 1.9 GM/DL (3.4-5.0); BICARBONATE 24.3 MEQ/L (21.0-32.0); CALCIUM 7.3 MG/DL (8.5-10.1); CALCIUM-PROTEIN CORRECTED 8.6 MG/DL (8.5-10.1); CREATININE 0.71 MG/DL (0.60-1.30); TOTAL BILIRUBIN ADULT 5.9 MG/DL (0.2-1.0); TOTAL PROTEIN 4.8 GM/DL (6.4-8.2)
[2017-12-27] MEDS: PANTOPRAZOLE INJ 80 MG in SODIUM CHLORIDE 0.9% INJ 100 ML IV SCH ×3 (07:50→18:29)
[2017-12-27] MEDS: CHLORHEXIDINE 0.12% (ORAL KIT) 15 ML CUP MT SCH ×2 (07:50→20:55)
[2017-12-27] MEDS: LACTULOSE SYRUP 20 GM/30 ML CUP PO SCH ×3 (07:50→20:53)
[2017-12-27] MEDS: RIFAXIMIN 550 MG TAB PO SCH ×2 (07:50→21:03)
[2017-12-27] MEDS: SODIUM CHLORIDE 0.9% FLUSH 10 ML FLUSH IV FLUSH SCH ×3 (07:51→20:53)
[2017-12-27 08:25] LABS: BANDS 35 % (0-6); LYMPHOCYTES 4 % (9-44); NEUTROPHIL # MANUAL DIFF 2.2 TH/MM3 (1.8-7.7); POLYS (SEG NEUTROPHILS) 58 % (16-70)
[2017-12-27 08:26] LABS: OVALOCYTES 1+ (NORMAL)
[2017-12-27 08:27] LABS: BURR CELLS 1+ (NORMAL)
[2017-12-27] MEDS ORDERED: POTASSIUM CHLOR 40 MEQ PREMIX 100 ML IV PRN (10:30)
[2017-12-27] MEDS ORDERED: MAGNESIUM OXIDE 400 MG TAB PO PRN (10:30)
[2017-12-27] MEDS ORDERED: POTASSIUM PHOSPHATE MONOBASIC 500 MG TAB PO/TUBE PRN (10:30)
[2017-12-27] MEDS ORDERED: SODIUM PHOSPHATE INJ 30 MMOL in SODIUM CHLOR 0.9% 250 ML INJ 240 ML IV PRN (10:30)
[2017-12-27] MEDS ORDERED: MAGNESIUM SULFATE INJ 4 GM in SODIUM CHLORIDE 0.9% INJ 92 ML IV PRN (10:30)
[2017-12-27] MEDS ORDERED: MAGNESIUM SULFATE INJ 2 GM in SODIUM CHLORIDE 0.9% INJ 96 ML IV PRN (10:30)
[2017-12-27] MEDS ORDERED: POTASSIUM CHLORIDE 25 MEQ EFFERVESCENT TAB PO PRN (10:30)
[2017-12-27] MEDS ORDERED: POTASSIUM PHOSPHATE MONOBASIC 500 MG TAB PO PRN (10:30)
[2017-12-27] MEDS ORDERED: POTASSIUM CHLOR 20 MEQ PREMIX 100 ML IV PRN (10:30)
--- NOTE | 2017-12-27 10:38 | HHI.CCPN ---
Subjective Remarks/Hospital Course 62 yo male. Date of admission 12/24/2017. Consultation 12/24/2017. Past medical history includes liver cirrhosis with recurrent upper GI bleeding. He was diagnosed 04/11 with liver cirrhosis. He states he quit drinking alcohol that time he was followed at [facility] for liver transplantation evaluation. April 2017, upper GI bleeding - distal Russell's esophagus and grade 1 varices. Stomach no bladder ulcers. Mucosa does not appear edematous duodenum. Status post angiogram of the celiac, SMA revealed no hemorrhagic focus identified. No further bleeding. Patient was again admitted 08/13 for upper GI bleed. EGD revealed grade 1-2 septal varices in no active bleeding. Gastric varices in the fundus just 2 cm GE junction actively squirting blood. Banding not possible so injected with 6 cc of epinephrine to stop the bleeding. Large clots and stomach. Remain intubated on octreotide and Protonix drips. Recommended if continued bleeding need to consider for TIPS. Most recently was admitted December 11, 2017 with alcohol toxicity. His has recently and he has drinking alcohol again. His alcohol levels currently 234. He presented today with upper GI bleeding. He is noted to be pancytopenic in with a white blood cell count of 3.8. Hemoglobin 7.1 and platelets of 30. INR is 1.9. AST is elevated. Alcohol level is 234. Patient received 6 L normal saline was started on a Protonix and octreotide drip. He remained hypotensive and peripheral vasopressors were started. Auto Technician was consulted along with GI. Due to the upper GI bleed decision was made to secure the airway with oral tracheal intubation and placement of central line to receive rapid transfusion. I discussed this with daughter Fabi Ndiaye [phone] and she is in agreement with aggressive plans at the present time. I described to her d- dimer nature of his current clinical situation and she wished to be made aware of any medical decisions that need to be made. Michelle did make her the healthcare proxy at this time. 12/25: Transfused 6 PRBCs, 2 FFP and 2 platelets overnight. Currently norepinephrine at 5 mcg/m and vasopressin 0.04 units per minute. Afebrile. Arousable on the ventilator. We'll transfuse FFP, cryoprecipitate and platelets again this AM 12/26 Patient remains intubated and sedation . On Octreotide and Protonix drips. In addition he is on Levopehd 1 saul and Vasopressin0.04. NGT ahd approx 200ml coffee ground gastric output, Subjective 12/27: No further bleeding noted. INR currently 1.7. Platelets to 28K. family to arrive late . Possibly transition to comfort care Monday, however request aggressive cares in the interim short of CPR. Objective Vital Signs Date Time Temp Pulse Resp B/P (MAP) Pulse Ox O2 Delivery O2 Flow Rate FiO2 12/27/17 08:12 96 40 12/27/17 08:00 112 12/27/17 08:00 98.7 20 134/65 (88) 12/24/17 16:52 Nasal Cannula 2.00 Intake and Output 12/27/17 12/27/17 12/28/17 08:00 16:00 00:00 Intake Total 1831 ml Output Total 450 ml Balance 1381 ml Result Diagram: 12/27/17 0600 12/27/17 0600 Imaging Last Impressions Chest X-Ray 12/26/17 0600 Signed Impressions: Service Date/Time: Tuesday, December 26, 2017 01:56 - CONCLUSION: 1. Pleural effusions, right greater than left with basilar airspace consolidation. Endotracheal tube, nasogastric tube and left central line in good position. Findings similar to December 24. Toño Glez MD Liver Ultrasound 12/25/17 0000 Signed Impressions: Service Date/Time: Monday, December 25, 2017 09:17 - CONCLUSION: 1. Cirrhotic appearing liver with mild splenomegaly consistent with portal hypertension. The portal vein is patent with hepatopedal flow. 2. Gallbladder wall thickening with small amount of sludge and dominant gallstone. These findings are typically seen in patient's with chronic liver condition. 3. Incidental note of small bilateral pleural effusions. Jorge Roche MD Objective Remarks GENERAL: 62 -year-old male currently orotracheally intubated SKIN: Warm and dry. No rash HEAD: Atraumatic. Normocephalic. EYES: Pupils equal and round about 3 mm bilaterally and reactive. + scleral icterus. No injection or drainage. ENT: Blood from oral mucosa during intubation notice. Positive petechiae. NECK: Trachea midline. No JVD. CARDIOVASCULAR: Regular rate and rhythm. S1, S2. No S4. RESPIRATORY: No accessory muscle use. Clear to auscultation. Breath sounds equal bilaterally. GASTROINTESTINAL: Abdomen slightly taut, nontender. Hypoactive bowel sounds are appreciated. MUSCULOSKELETAL: Extremities with trace lower extremity edema. No obvious deformities. NEUROLOGICAL: Awake and alert. No obvious cranial nerve deficits. Motor grossly within normal limits. Five out of 5 muscle strength in the arms and legs. Normal speech prior to intubation 12/24. Urinary Catheter: Yes Assessment to: Continue Mcdonald insert reason: Prolonged Immobilization Vascular Central Line Catheter: Yes Assessment to: Continue Date of Insertion: Dec 24, 2017 Line: Central Venous Catheter Side: Left Location: Internal, Jugular A/P Assessment and Plan Neuro/Psych: EtOH intoxication Toxic metabolic encephalopathy secondary to elevated ammonia Currently on fentanyl drips in drip and 50 mg an hour/fall drip at 35 mcg/kg per minute for sedation/analgesia while intubated Goal of RASS -2 Daily sedation vacation Ofirmev 1 g IV every 8 hours when necessary fever EtOH level was 234. on vitamin bag daily for 3 days and switch to thiamine 100 mg IV daily on 12/28 Follow-up on ammonia level 180 today. History of toxic metabolic encephalopathy secondary to elevated ammonia CV: Sinus tachycardia secondary to acute blood loss Currently off all vasopressors. On one half normal saline at 100 cc an hour Goal keep mean arterial pressure greater than equal to 65 Resp: Acute hypoxemic respiratory failure History of loculated right pleural effusion status post right chest tube/Pleurx catheter [facility] 16/500/12/01/39 Ventilator bundle Albuterol/ipratropium aerosols every 6 hours with albuterol aerosols every 2 hours. Dyspnea Maintain head of bed at 30 CXR: Basilar airspace consolidation GI: Recurrent upper GI bleeding - negative gastroduodenal artery evaluation 05/13 History of esophageal varices - grade 1-2. Most recently epinephrine injected Portal gastropathy Portal hypertension Splenomegaly EtOH cirrhosis History of Alicia-Dyson tear History of Russell's esophagus Hyperammonia Hypoalbuminemia Elevated total bilirubin Currently NPO On pantoprazole drip at 8 mg an hour and Sandostatin drip at 50 g an hour ceftriaxone 1 g daily for upper GI bleed GI following Dr. Marie. s/p EGD: Probable gastric varices, portal gastropathy and Russell;s esophagus Continue lactulose 30 cc Q6 and Xifaxan 550 mill grams twice a day for elevated ammonia level. Follow-up ammonia level 180 12/26. 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 Hernandez and Narcisa for intermittent transfusions and Neupogen injections during prior hospitalizations Haptoglobin slightly low at 29. LDH normal. ID: Monitor for infection On ceftriaxone for upper GI bleed MSK: PT evaluate and treat Access Left IJ CVL day #4 place 12/24 Prophylaxis - GI - pantoprazole drip/octreotide drip - DVT - SCD/pharmacological prophylaxis contraindicated with upper GI bleed Palliative care is following Critical Care: The total critical care time was 30 minutes. Time to perform other separately billable procedures was not included in the critical care time. Ryley Casey MD Dec 27, 2017 10:38
[2017-12-27] MEDS ORDERED: POTASSIUM PHOSPHATE INJ 30 MMOL in SODIUM CHLOR 0.9% 250 ML INJ 250 ML IV ONE (11:00)
[2017-12-27] MEDS: MAGNESIUM SULFATE 1 GM PREMIX 100 ML IV SCH ×2 (11:02→12:18)
[2017-12-27] MEDS: SODIUM CHLOR 0.45% 1000 ML INJ 1,000 ML IV SCH (12:17)
--- NOTE | 2017-12-27 12:41 | HHI.GIFU ---
Subjective Remarks Pt intubated. Having less output from OGT, scant dark brown output visualized. Getting PLT and FFP shortly. Objective Vitals I&O Vital Signs Date Time Temp Pulse Resp B/P (MAP) Pulse Ox O2 Delivery O2 Flow Rate FiO2 12/27/17 11:45 98.5 90 16 118/58 97 12/27/17 10:00 92 12/27/17 08:40 40 12/27/17 08:40 95 40 12/27/17 08:12 96 40 12/27/17 08:00 40 12/27/17 08:00 112 12/27/17 08:00 98.7 105 20 134/65 (88) 97 12/27/17 06:00 126 12/27/17 04:08 100 40 12/27/17 04:00 126 12/27/17 04:00 40 12/27/17 04:00 98.7 126 25 124/61 (82) 98 12/27/17 02:00 72 12/27/17 01:10 96 40 12/27/17 00:00 98.8 72 22 146/57 (86) 100 12/27/17 00:00 72 12/27/17 00:00 40 12/26/17 22:00 105 12/26/17 20:00 99.1 105 20 102/62 (75) 96 12/26/17 20:00 105 12/26/17 20:00 98.9 78 23 118/64 (82) 100 12/26/17 20:00 40 12/26/17 19:38 97 40 12/26/17 18:00 91 20 97/54 (68) 96 12/26/17 18:00 85 12/26/17 16:19 99 40 12/26/17 16:00 40 12/26/17 16:00 98.5 91 20 102/57 (72) 97 12/26/17 16:00 98.3 103 20 126/65 (85) 93 12/26/17 16:00 91 12/26/17 14:00 86 I/O 12/26/17 12/26/17 12/26/17 12/27/17 12/27/17 12/27/17 07:00 15:00 23:00 07:00 15:00 23:00 Intake Total 931 ml 1339 ml 250 ml 1831 ml 192 ml Output Total 700 ml 450 ml Balance 931 ml 1339 ml -450 ml 1381 ml 192 ml Intake IV Total 931 ml 1075 ml 1831 ml Platelets 264 ml 192 ml Other 250 ml Output Urine Total 400 ml 450 ml Gastric Drainage Total 300 ml Laboratory Laboratory Tests Test 12/26/17 14:00 12/26/17 16:49 12/27/17 01:55 12/27/17 06:00 Hemoglobin 9.9 10.0 9.9 10.2 Hematocrit 28.8 28.7 28.7 29.0 Lactic Acid Level 1.8 1.7 1.8 1.7 White Blood Count 2.4 Red Blood Count 3.15 Mean Corpuscular Volume 92.0 Mean Corpuscular Hemoglobin 32.2 Mean Corpuscular Hemoglobin Concent 35.1 Red Cell Distribution Width 19.1 Platelet Count 28 Mean Platelet Volume 7.5 CBC Comment AUTO DIFF Differential Total Cells Counted 100 Neutrophils % (Manual) 58 Band Neutrophils % 35 Lymphocytes % 4 Eosinophils % 3 Neutrophils # (Manual) 2.2 Differential Comment FINAL DIFF MANUAL Platelet Estimate LOW Platelet Morphology Comment NORMAL Ovalocytes 1+ [place] Cells 1+ Prothrombin Time 17.5 Prothromb Time International Ratio 1.7 Blood Urea Nitrogen 17 Creatinine 0.71 Random Glucose 92 Total Protein 4.8 Albumin 1.9 Calcium Level 7.3 Alkaline Phosphatase 66 Aspartate Amino Transf (AST/SGOT) 47 Alanine Aminotransferase (ALT/SGPT) 22 Total Bilirubin 5.9 Sodium Level 148 Potassium Level 3.3 Chloride Level 117 Carbon Dioxide Level 24.3 Anion Gap 7 Estimat Glomerular Filtration Rate 112 Protein Corrected Calcium 8.6 Imaging Last Impressions Chest X-Ray 12/27/17 0000 Signed Impressions: Service Date/Time: Wednesday, December 27, 2017 04:24 - CONCLUSION: 1. Support apparatus unchanged. Bilateral airspace disease and pleural effusions present, slightly worse on the left since December 26. Toño Glez MD Liver Ultrasound 12/25/17 0000 Signed Impressions: Service Date/Time: Monday, December 25, 2017 09:17 - CONCLUSION: 1. Cirrhotic appearing liver with mild splenomegaly consistent with portal hypertension. The portal vein is patent with hepatopedal flow. 2. Gallbladder wall thickening with small amount of sludge and dominant gallstone. These findings are typically seen in patient's with chronic liver condition. 3. Incidental note of small bilateral pleural effusions. Jorge Roche MD Physical Exam HEENT: normocephalic; atraumatic; no jaundice. intubated CHEST: CTA CARDIAC: RRR ABDOMEN: mild distended, semifirm no hepatosplenomegaly; bowel sounds are present in all four quadrants. EXTREMITIES: No clubbing, cyanosis, or edema. SKIN: Normal; no rash; no jaundice. PHARMACOVIGILANCE SPECIALIST: sedated on vent Assessment and Plan Plan 12/24/17 - This is a 62-year-old gentleman with GI bleed most likely variceal bleed. 12/27/17 - s/p EGD 12/25 --> GIB etiology unclear but prob varices, samayoa's, portal gastropathy, view obscured by fluid HH stable, decreasing OGT output. INR 1.7 and PLT 28 he will be getting transfused PLAN - repeat EGD in am - rck coags and CBC in am - obtain consent - NPO - monitor labs - notify GI of active bleeding - further recs to follow pt seen by myself and Dr Marie and this note is written on his behalf Adriana Ham Dec 27, 2017 12:41
[2017-12-27] MEDS: ARTIFICIAL TEARS OPTH SOLN 15 ML BTL EACH EYE SCH ×2 (14:00→21:04)
[2017-12-27] MEDS: VASOPRESSIN INJ 40 UNITS in DEXTROSE 5% IN WATER 100ML INJ 98 ML IV SCH ×2 (14:20)
[2017-12-27] MEDS: THIAMINE INJ 100 MG in SODIUM CHLORIDE 0.9% INJ 100 ML IV SCH (17:15)
[2017-12-27] MEDS: cefTRIAXone INJ 1,000 MG in SODIUM CHLORIDE 0.9% INJ 100 ML IV SCH (20:54)
[2017-12-27 21:38] LABS: HEMATOCRIT 27.9 % (39.0-51.0); HEMOGLOBIN 9.7 GM/DL (13.0-17.0); MEAN CORPUSCULAR HEMOGLOBIN 32.3 PG (27.0-34.0); MEAN CORPUSCULAR HGB CONC 34.8 % (32.0-36.0); MEAN PLATELET VOLUME 7.3 FL (7.0-11.0); PLATELET COUNT 35 TH/MM3 (150-450); WHITE BLOOD COUNT 2.2 TH/MM3 (4.0-11.0)
[2017-12-27 21:51] LABS: BICARBONATE 24.2 MEQ/L (21.0-32.0); CALCIUM 7.5 MG/DL (8.5-10.1); CREATININE 0.67 MG/DL (0.60-1.30); MAGNESIUM 2.3 MG/DL (1.5-2.5)
[2017-12-27 21:53] LABS: PHOSPHORUS 2.5 MG/DL (2.5-4.9)
[2017-12-28] VITALS (19 sets, daily range): BP systolic 95–110; BP diastolic 54–59; PULSE 75–101; RESP 16; TEMP 98.1–98.6; O2SAT 95–100
[2017-12-28] MEDS: fentaNYL DRIP 250 ML IV PRN ×2 (01:40→18:34)
[2017-12-28] MEDS: SODIUM CHLOR 0.45% 1000 ML INJ 1,000 ML IV SCH ×2 (01:40→13:18)
[2017-12-28] MEDS: LACTULOSE SYRUP 20 GM/30 ML CUP PO SCH ×4 (02:12→21:07)
[2017-12-28] MEDS: RESP: ALBUTEROL 2.5 MG/IPRATROPIUM 0.5 MG NEB (SCH) INH ×4 (03:00→20:57)
[2017-12-28] MEDS: CHLORHEXIDINE GLUCONATE 2 % 1 PACK (2 CLOTHS) TOP SCH (04:00)
[2017-12-28 04:28] LABS: AUTOMATED NEUTROPHIL # 1.2 TH/MM3 (1.8-7.7); BASOPHIL % 0.8 % (0.0-2.0); EOSINOPHIL # 0.1 TH/MM3 (0-0.4); EOSINOPHIL % 4.4 % (0.0-4.0); HEMATOCRIT 27.7 % (39.0-51.0); HEMOGLOBIN 9.6 GM/DL (13.0-17.0); LYMPH % 13.5 % (9.0-44.0); LYMPHOCYTE # 0.3 TH/MM3 (1.0-4.8); MEAN CELL VOLUME 92.8 FL (80.0-100.0); MEAN CORPUSCULAR HEMOGLOBIN 32.3 PG (27.0-34.0); MEAN CORPUSCULAR HGB CONC 34.8 % (32.0-36.0); MEAN PLATELET VOLUME 6.8 FL (7.0-11.0); MONO % 17.5 % (0.0-8.0); MONOCYTE # 0.3 TH/MM3 (0-0.9); NEUT % 63.8 % (16.0-70.0); PLATELET COUNT 36 TH/MM3 (150-450); RED BLOOD COUNT 2.99 MIL/MM3 (4.50-5.90); RED CELL DISTRIBUTION WIDTH 21.2 % (11.6-17.2); WHITE BLOOD COUNT 1.9 TH/MM3 (4.0-11.0)
[2017-12-28 04:52] LABS: INTERNATIONAL NORMALIZED RATIO 1.8 RATIO; PROTHROMBIN TIME - PATIENT 18.2 SEC (9.8-11.6)
[2017-12-28 05:26] LABS: ALBUMIN 1.9 GM/DL (3.4-5.0); BICARBONATE 24.6 MEQ/L (21.0-32.0); CALCIUM 7.2 MG/DL (8.5-10.1); CALCIUM-PROTEIN CORRECTED 8.3 MG/DL (8.5-10.1); CREATININE 0.63 MG/DL (0.60-1.30); MAGNESIUM 2.2 MG/DL (1.5-2.5); PHOSPHORUS 1.6 MG/DL (2.5-4.9); TOTAL BILIRUBIN ADULT 5.9 MG/DL (0.2-1.0)
[2017-12-28] MEDS: FREE WATER G-TUBE SCH ×3 (05:44→21:08)
[2017-12-28] MEDS: ARTIFICIAL TEARS OPTH SOLN 15 ML BTL EACH EYE SCH ×3 (05:44→21:07)
[2017-12-28] MEDS: OCTREOTIDE INJ 500 MCG in SODIUM CHLORID 0.9% 500 ML INJ 499.5 ML IV SCH ×2 (05:45→15:13)
[2017-12-28] MEDS: PANTOPRAZOLE INJ 80 MG in SODIUM CHLORIDE 0.9% INJ 100 ML IV SCH ×2 (07:20→15:14)
[2017-12-28] MEDS: PROPOFOL 1000 MG/100 ML INJ 100 ML IV PRN ×2 (07:21→21:11)
[2017-12-28] MEDS: CHLORHEXIDINE 0.12% (ORAL KIT) 15 ML CUP MT SCH ×2 (08:00→20:00)
[2017-12-28 08:14] LABS: BANDS 34 % (0-6); BASOPHILS 2 % (0-2); LYMPHOCYTES 8 % (9-44); MONOCYTES 2 % (0-8); NEUTROPHIL # MANUAL DIFF 1.6 TH/MM3 (1.8-7.7); OVALOCYTES 1+ (NORMAL); POLYS (SEG NEUTROPHILS) 50 % (16-70)
[2017-12-28] MEDS: VASOPRESSIN INJ 40 UNITS in DEXTROSE 5% IN WATER 100ML INJ 98 ML IV SCH ×2 (08:20)
[2017-12-28] MEDS: RIFAXIMIN 550 MG TAB PO SCH ×2 (10:23→21:07)
[2017-12-28] MEDS: SODIUM CHLORIDE 0.9% FLUSH 10 ML FLUSH IV FLUSH SCH ×3 (10:24→21:07)
[2017-12-28] MEDS: POTASSIUM PHOSPHATE INJ 30 MMOL in SODIUM CHLOR 0.9% 250 ML INJ 250 ML IV PRN (11:48)
[2017-12-28] MEDS ORDERED: STERILE WATER FOR INJECTION 20 ML VIAL IV ONE (12:00)
[2017-12-28] MEDS ORDERED: PROPOFOL 200 MG/20 ML AMP IV ONE (12:00)
--- NOTE | 2017-12-28 14:03 | GIPROC ---
[facility] [address] [facility]. [facility], [address] EGD PROCEDURE REPORT EXAM DATE: 12/28/2017 PATIENT NAME: Kvng Ndiaye MR #: [id number] BIRTHDATE: 1955 ATTENDING: Olman Wadsworth MD ORDER #: [id number] FINISHER CARD TENDER: Cirilo Del Cid and Rosa Patel STATUS: inpatient INDICATIONS: The patient is a 62 yr old male here for an EGD due to acute post hemorrhagic anemia and hematemesis PROCEDURE PERFORMED: EGD, diagnostic MEDICATIONS: None and Per Anesthesia. TOPICAL ANESTHETIC: CONSENT: The patient understands the risks and benefits of the procedure and understands that these risks include, but are not limited to: sedation, allergic reaction, infection, perforation and/or bleeding. Alternative means of evaluation and treatment include, among others: physical exam, x-rays, and/or surgical intervention. The patient elects to proceed with this endoscopic procedure. medical equipment was checked for proper function. Hand hygiene and appropriate measures for infection prevention was taken. After the risks, benefits and alternatives of the procedure were thoroughly explained, Informed consent was verified, confirmed and timeout was successfully executed by the treatment team. The patient was anesthetized with topical anesthesia and the Pentax EG-[id number] endoscope was introduced through the mouth and advanced to the second portion of the duodenum. Retroflexed views revealed no abnormalities The gastroscope was then slowly withdrawn and removed. ESOPHAGUS: There was short segment Russell's esophagus found in the distal esophagus. The length of circumferential Russell's was 3cm ([place] C3). There was no nodular mucosa noted in the Russell's segment. There was a single small varix in the distal esophagus. The varices were not bleeding. There was evidence of prior scarring. STOMACH: Moderate portal hypertensive gastropathy was found in the gastric fundus. DUODENUM: The duodenal mucosa appeared normal in the bulb and second portion of the duodenum. ADVERSE EVENTS: There were no complications. IMPRESSIONS: 1. There was short segment Russell's esophagus found in the distal esophagus 2. Portal hypertensive gastropathy was found in the gastric fundus 3. Normal duodenal mucosa in the bulb and second portion of the duodenum 4. Retroflexed views revealed no abnormalities RECOMMENDATIONS: 1. Anti-reflux regimen 2. Continue PPI 3. Traqnsfuse 1 packet platelet and 2 units FFP PATIENT CONDITION: stable DISPOSITION: Inpatient REPEAT EXAM: Return as needed for EGD Olman Wadsworth MD eSigned: Olman Wadsworth MD 12/28/2017 2:03 PM cc: PATIENT NAME: Kvng Ndiaye MR#: [id number]
[2017-12-28 16:41] LABS: HEMATOCRIT 28.2 % (39.0-51.0); HEMOGLOBIN 9.5 GM/DL (13.0-17.0)
[2017-12-28] MEDS: THIAMINE INJ 100 MG in SODIUM CHLORIDE 0.9% INJ 100 ML IV SCH (18:01)
--- NOTE | 2017-12-28 19:50 | HHI.CCPN ---
Subjective Remarks/Hospital Course 62 yo male. Date of admission 12/24/2017. Consultation 12/24/2017. Past medical history includes liver cirrhosis with recurrent upper GI bleeding. He was diagnosed 04/11 with liver cirrhosis. He states he quit drinking alcohol that time he was followed at [facility] for liver transplantation evaluation. April 2017, upper GI bleeding - distal Russell's esophagus and grade 1 varices. Stomach no bladder ulcers. Mucosa does not appear edematous duodenum. Status post angiogram of the celiac, SMA revealed no hemorrhagic focus identified. No further bleeding. Patient was again admitted 08/13 for upper GI bleed. EGD revealed grade 1-2 septal varices in no active bleeding. Gastric varices in the fundus just 2 cm GE junction actively squirting blood. Banding not possible so injected with 6 cc of epinephrine to stop the bleeding. Large clots and stomach. Remain intubated on octreotide and Protonix drips. Recommended if continued bleeding need to consider for TIPS. Most recently was admitted December 11, 2017 with alcohol toxicity. His has recently and he has drinking alcohol again. His alcohol levels currently 234. He presented today with upper GI bleeding. He is noted to be pancytopenic in with a white blood cell count of 3.8. Hemoglobin 7.1 and platelets of 30. INR is 1.9. AST is elevated. Alcohol level is 234. Patient received 6 L normal saline was started on a Protonix and octreotide drip. He remained hypotensive and peripheral vasopressors were started. Glass Calibrator was consulted along with GI. Due to the upper GI bleed decision was made to secure the airway with oral tracheal intubation and placement of central line to receive rapid transfusion. I discussed this with daughter Fabi Ndiaye [phone] and she is in agreement with aggressive plans at the present time. I described to her d- dimer nature of his current clinical situation and she wished to be made aware of any medical decisions that need to be made. Michelle did make her the healthcare proxy at this time. 12/25: Transfused 6 PRBCs, 2 FFP and 2 platelets overnight. Currently norepinephrine at 5 mcg/m and vasopressin 0.04 units per minute. Afebrile. Arousable on the ventilator. We'll transfuse FFP, cryoprecipitate and platelets again this AM 12/26 Patient remains intubated and sedation . On Octreotide and Protonix drips. In addition he is on Levopehd 1 saul and Vasopressin0.04. NGT ahd approx 200ml coffee ground gastric output, 12/27: No further bleeding noted. INR currently 1.7. Platelets to 28K. family to arrive late . Possibly transition to comfort care Monday, however request aggressive cares in the interim short of CPR. Subjective 12/28: Status post EGD today. Possible brief episode of esophageal varices resolved. Portal gastropathy noted. Hemoglobin stable. Remains intubated. Objective Vital Signs Date Time Temp Pulse Resp B/P (MAP) Pulse Ox O2 Delivery O2 Flow Rate FiO2 12/28/17 18:07 99 40 12/28/17 18:00 83 12/28/17 16:00 98.5 16 107/58 (74) 12/24/17 16:52 Nasal Cannula 2.00 Intake and Output 12/28/17 12/28/17 12/29/17 08:00 16:00 00:00 Intake Total 1502 ml 440 ml 2045 ml Output Total 1050 ml 1400 ml Balance 452 ml 440 ml 645 ml Result Diagram: 12/28/17 1610 12/28/17 0405 Imaging Last Impressions Chest X-Ray 12/27/17 0000 Signed Impressions: Service Date/Time: Wednesday, December 27, 2017 04:24 - CONCLUSION: 1. Support apparatus unchanged. Bilateral airspace disease and pleural effusions present, slightly worse on the left since December 26. Toño Glez MD Liver Ultrasound 12/25/17 0000 Signed Impressions: Service Date/Time: Monday, December 25, 2017 09:17 - CONCLUSION: 1. Cirrhotic appearing liver with mild splenomegaly consistent with portal hypertension. The portal vein is patent with hepatopedal flow. 2. Gallbladder wall thickening with small amount of sludge and dominant gallstone. These findings are typically seen in patient's with chronic liver condition. 3. Incidental note of small bilateral pleural effusions. Jorge Roche MD Objective Remarks GENERAL: 62 -year-old male currently orotracheally intubated SKIN: Warm and dry. No rash HEAD: Atraumatic. Normocephalic. EYES: Pupils equal and round about 3 mm bilaterally and reactive. + scleral icterus. No injection or drainage. ENT: Blood from oral mucosa during intubation notice. Positive petechiae. NECK: Trachea midline. No JVD. CARDIOVASCULAR: Regular rate and rhythm. S1, S2. No S4. RESPIRATORY: No accessory muscle use. Clear to auscultation. Breath sounds equal bilaterally. GASTROINTESTINAL: Abdomen slightly taut, nontender. Hypoactive bowel sounds are appreciated. MUSCULOSKELETAL: Extremities with trace lower extremity edema. No obvious deformities. NEUROLOGICAL: Awake and alert. No obvious cranial nerve deficits. Motor grossly within normal limits. Five out of 5 muscle strength in the arms and legs. Normal speech prior to intubation 12/24. Vascular Central Line Catheter: Yes Assessment to: Continue Date of Insertion: Dec 24, 2017 Line: Central Venous Catheter Side: Left Location: Internal, Jugular A/P Assessment and Plan Neuro/Psych: EtOH intoxication Toxic metabolic encephalopathy secondary to elevated ammonia Currently on fentanyl drips in drip and 50 mg an hour/fall drip at 35 mcg/kg per minute for sedation/analgesia while intubated Goal of RASS -2 Daily sedation vacation Ofirmev 1 g IV every 8 hours when necessary fever EtOH level was 234. on vitamin bag daily for 3 days and switch to thiamine 100 mg IV daily on 12/28 Follow-up on ammonia level 180 today. History of toxic metabolic encephalopathy secondary to elevated ammonia CV: Sinus tachycardia secondary to acute blood loss Currently off all vasopressors. On one half normal saline at 100 cc an hour Goal keep mean arterial pressure greater than equal to 65 Resp: Acute hypoxemic respiratory failure History of loculated right pleural effusion status post right chest tube/Pleurx catheter PR[facility] 16/500///40 Ventilator bundle Albuterol/ipratropium aerosols every 6 hours with albuterol aerosols every 2 hours. Dyspnea Maintain head of bed at 30 CXR: Basilar airspace consolidation GI: Recurrent upper GI bleeding - negative gastroduodenal artery evaluation 05/13 History of esophageal varices - grade 1-2. Most recently epinephrine injected Portal gastropathy Portal hypertension Splenomegaly EtOH cirrhosis History of Alicia-Dyson tear History of Russell's esophagus Hyperammonia Hypoalbuminemia Elevated total bilirubin Currently NPO On pantoprazole drip at 8 mg an hour and Sandostatin drip at 50 g an hour ceftriaxone 1 g daily for upper GI bleed GI following Dr. Marie. s/p EGD: Probable gastric varices, portal gastropathy and Russell;s esophagus Continue lactulose 30 cc Q6 and Xifaxan 550 mill grams twice a day for elevated ammonia level. Follow-up ammonia level 180 12/26. 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 Hernandez and Narcisa for intermittent transfusions and Neupogen injections during prior hospitalizations Haptoglobin slightly low at 29. LDH normal. ID: Monitor for infection On ceftriaxone for upper GI bleed MSK: PT evaluate and treat Access Left IJ CVL day #4 place 12/24 Prophylaxis - GI - pantoprazole drip/octreotide drip - DVT - SCD/pharmacological prophylaxis contraindicated with upper GI bleed Palliative care is following Critical Care: The total critical care time was 30 minutes. Time to perform other separately billable procedures was not included in the critical care time. Ryley Casey MD Dec 28, 2017 19:50
--- NOTE | 2017-12-28 19:57 | HHI.CCPN ---
Subjective Remarks/Hospital Course 62 yo male. Date of admission 12/24/2017. Consultation 12/24/2017. Past medical history includes liver cirrhosis with recurrent upper GI bleeding. He was diagnosed 04/11 with liver cirrhosis. He states he quit drinking alcohol that time he was followed at [facility] for liver transplantation evaluation. April 2017, upper GI bleeding - distal Russell's esophagus and grade 1 varices. Stomach no bladder ulcers. Mucosa does not appear edematous duodenum. Status post angiogram of the celiac, SMA revealed no hemorrhagic focus identified. No further bleeding. Patient was again admitted 08/13 for upper GI bleed. EGD revealed grade 1-2 septal varices in no active bleeding. Gastric varices in the fundus just 2 cm GE junction actively squirting blood. Banding not possible so injected with 6 cc of epinephrine to stop the bleeding. Large clots and stomach. Remain intubated on octreotide and Protonix drips. Recommended if continued bleeding need to consider for TIPS. Most recently was admitted December 11, 2017 with alcohol toxicity. His has recently and he has drinking alcohol again. His alcohol levels currently 234. He presented today with upper GI bleeding. He is noted to be pancytopenic in with a white blood cell count of 3.8. Hemoglobin 7.1 and platelets of 30. INR is 1.9. AST is elevated. Alcohol level is 234. Patient received 6 L normal saline was started on a Protonix and octreotide drip. He remained hypotensive and peripheral vasopressors were started. Log Buncher was consulted along with GI. Due to the upper GI bleed decision was made to secure the airway with oral tracheal intubation and placement of central line to receive rapid transfusion. I discussed this with daughter Fabi Ndiaye [phone] and she is in agreement with aggressive plans at the present time. I described to her d- dimer nature of his current clinical situation and she wished to be made aware of any medical decisions that need to be made. Michelle did make her the healthcare proxy at this time. 12/25: Transfused 6 PRBCs, 2 FFP and 2 platelets overnight. Currently norepinephrine at 5 mcg/m and vasopressin 0.04 units per minute. Afebrile. Arousable on the ventilator. We'll transfuse FFP, cryoprecipitate and platelets again this AM 12/26 Patient remains intubated and sedation . On Octreotide and Protonix drips. In addition he is on Levopehd 1 saul and Vasopressin0.04. NGT ahd approx 200ml coffee ground gastric output, 12/27: No further bleeding noted. INR currently 1.7. Platelets to 28K. family to arrive late . Possibly transition to comfort care Monday, however request aggressive cares in the interim short of CPR. Subjective 12/28: Status post EGD today. Possible brief episode of esophageal varices resolved. Portal gastropathy noted. Hemoglobin stable. Remains intubated. Objective Vital Signs Date Time Temp Pulse Resp B/P (MAP) Pulse Ox O2 Delivery O2 Flow Rate FiO2 12/28/17 18:07 99 40 12/28/17 18:00 83 12/28/17 16:00 98.5 16 107/58 (74) 12/24/17 16:52 Nasal Cannula 2.00 Intake and Output 12/28/17 12/28/17 12/29/17 08:00 16:00 00:00 Intake Total 1502 ml 440 ml 2045 ml Output Total 1050 ml 1400 ml Balance 452 ml 440 ml 645 ml Result Diagram: 12/28/17 1610 12/28/17 0405 Imaging Last Impressions Chest X-Ray 12/27/17 0000 Signed Impressions: Service Date/Time: Wednesday, December 27, 2017 04:24 - CONCLUSION: 1. Support apparatus unchanged. Bilateral airspace disease and pleural effusions present, slightly worse on the left since December 26. Toño Glez MD Liver Ultrasound 12/25/17 0000 Signed Impressions: Service Date/Time: Monday, December 25, 2017 09:17 - CONCLUSION: 1. Cirrhotic appearing liver with mild splenomegaly consistent with portal hypertension. The portal vein is patent with hepatopedal flow. 2. Gallbladder wall thickening with small amount of sludge and dominant gallstone. These findings are typically seen in patient's with chronic liver condition. 3. Incidental note of small bilateral pleural effusions. Jorge Roche MD Objective Remarks GENERAL: 62 -year-old male currently orotracheally intubated SKIN: Warm and dry. No rash HEAD: Atraumatic. Normocephalic. EYES: Pupils equal and round about 3 mm bilaterally and reactive. + scleral icterus. No injection or drainage. ENT: Blood from oral mucosa during intubation notice. Positive petechiae. NECK: Trachea midline. No JVD. CARDIOVASCULAR: Regular rate and rhythm. S1, S2. No S4. RESPIRATORY: No accessory muscle use. Clear to auscultation. Breath sounds equal bilaterally. GASTROINTESTINAL: Abdomen slightly taut, nontender. Hypoactive bowel sounds are appreciated. MUSCULOSKELETAL: Extremities with trace lower extremity edema. No obvious deformities. NEUROLOGICAL: Awake and alert. No obvious cranial nerve deficits. Motor grossly within normal limits. Five out of 5 muscle strength in the arms and legs. Normal speech prior to intubation 12/24. Date of Insertion: Dec 24, 2017 Line: Central Venous Catheter Side: Left Location: Internal, Jugular A/P Assessment and Plan Neuro/Psych: EtOH intoxication Toxic metabolic encephalopathy secondary to elevated ammonia Currently on fentanyl drips in drip and 50 mg an hour/fall drip at 35 mcg/kg per minute for sedation/analgesia while intubated Goal of RASS -2 Daily sedation vacation Ofirmev 1 g IV every 8 hours when necessary fever EtOH level was 234. on vitamin bag daily for 3 days and switch to thiamine 100 mg IV daily on 12/28 Follow-up on ammonia level in a.m. History of toxic metabolic encephalopathy secondary to elevated ammonia CV: Sinus tachycardia secondary to acute blood loss Currently off all vasopressors. On one half normal saline at 100 cc an hour Goal keep mean arterial pressure greater than equal to 65 Resp: Acute hypoxemic respiratory failure History of loculated right pleural effusion status post right chest tube/Pleurx catheter PRVC 16/500/1/5/40 Ventilator bundle Albuterol/ipratropium aerosols every 6 hours with albuterol aerosols every 2 hours. Dyspnea Maintain head of bed at 30 CXR: Basilar airspace consolidation GI: Recurrent upper GI bleeding - negative gastroduodenal artery evaluation 05/13 History of esophageal varices - grade 1-2. Most recently epinephrine injected Portal gastropathy Portal hypertension Splenomegaly EtOH cirrhosis History of Alicia-Dyson tear History of Russell's esophagus Hyperammonia Hypoalbuminemia Elevated total bilirubin Currently NPO On pantoprazole drip at 8 mg an hour and Sandostatin drip at 50 g an hour ceftriaxone 1 g daily for upper GI bleed GI following Dr. Marie. s/p EGD: Probable gastric varices, portal gastropathy and Russell;s esophagus Continue lactulose 30 cc Q6 and Xifaxan 550 mill grams twice a day for elevated ammonia level. Follow-up ammonia level 180 12/26. Recheck 12/29 Renal/: Mcdonald catheter for accurate I's and O's in a critically ill patient Adjust IV fluid to half-normal saline at 100 cc an hour Endo: Sliding-scale insulin with Accu-Cheks to maintain euglycemia/low regimen every 4 hours Heme: Pancytopenia - chronic secondary to hypersplenism secondary to liver cirrhosis Coagulopathy - secondary underlying liver disease s/p Transfusion 5 FFP,6 u PRBCs, 4 pack platelets, Cryo Recheck CBC at [address] Hernandez and Narcisa for intermittent transfusions and Neupogen injections during prior hospitalizations Haptoglobin slightly low at 29. LDH normal. ID: Monitor for infection On ceftriaxone for upper GI bleed MSK: PT evaluate and treat FEN Hypernatremia Hypopotassemia Replace electrolytes per ICU electrolyte protocol Follow-up on a left lateral 2200 Access Left IJ CVL day #5 place 12/24 Prophylaxis - GI - pantoprazole drip/octreotide drip - DVT - SCD/pharmacological prophylaxis contraindicated with upper GI bleed Palliative care is following Critical Care: The total critical care time was 30 minutes. Time to perform other separately billable procedures was not included in the critical care time. Ryley Casey MD Dec 28, 2017 19:57
[2017-12-28] MEDS: cefTRIAXone INJ 1,000 MG in SODIUM CHLORIDE 0.9% INJ 100 ML IV SCH (21:07)
[2017-12-28 23:19] LABS: ALBUMIN 1.9 GM/DL (3.4-5.0); BICARBONATE 25.4 MEQ/L (21.0-32.0); CALCIUM 6.7 MG/DL (8.5-10.1); CALCIUM-PROTEIN CORRECTED 7.8 MG/DL (8.5-10.1); CREATININE 0.58 MG/DL (0.60-1.30); PHOSPHORUS 2.3 MG/DL (2.5-4.9); TOTAL BILIRUBIN ADULT 5.2 MG/DL (0.2-1.0); TOTAL PROTEIN 4.9 GM/DL (6.4-8.2)
[2017-12-29] VITALS (18 sets, daily range): BP systolic 95–111; BP diastolic 50–56; PULSE 76–104; RESP 12–16; TEMP 94.5–98.9; O2SAT 95–100
[2017-12-29] MEDS: VASOPRESSIN INJ 40 UNITS in DEXTROSE 5% IN WATER 100ML INJ 98 ML IV SCH ×4 (00:55→17:40)
[2017-12-29] MEDS: PANTOPRAZOLE INJ 80 MG in SODIUM CHLORIDE 0.9% INJ 100 ML IV SCH ×3 (01:00→20:45)
[2017-12-29] MEDS: OCTREOTIDE INJ 500 MCG in SODIUM CHLORID 0.9% 500 ML INJ 499.5 ML IV SCH ×3 (01:00→20:40)
[2017-12-29] MEDS: RESP: ALBUTEROL 2.5 MG/IPRATROPIUM 0.5 MG NEB (SCH) INH ×4 (02:36→19:36)
[2017-12-29] MEDS: LACTULOSE SYRUP 20 GM/30 ML CUP PO SCH ×4 (03:17→20:40)
[2017-12-29] MEDS: CHLORHEXIDINE GLUCONATE 2 % 1 PACK (2 CLOTHS) TOP SCH (03:17)
--- NOTE | 2017-12-29 04:37 | RADRPT ---
EXAM DATE/TIME: 12/29/2017 03:52 [facility] COMPARISON: CHEST SINGLE AP, December 27, 2017, 4:24. INDICATIONS : Evaluate for respiratory failure. MEDICAL HISTORY : Hypertension. Esophageal varices. Paracentesis. Kidney stones. Liver disease, ETOH. Cirrhosis. Thromb ocytopenia. SURGICAL HISTORY : Paracentesis. Chest tube; right. ENCOUNTER: Subsequent ACUITY: 4 - 6 days PAIN SCORE: Non-responsive. LOCATION: chest FINDINGS: Endotracheal tube, left jugular line and enteric tube again noted. Bilateral large effusions and cons olidation again seen. Osseous structures are stable. CONCLUSION: No significant change has occurred. Tyler Mahmood MD on December 29, 2017 at 4:34 Board Certified Radiologist. This report was verified electronically.
--- NOTE | 2017-12-29 04:39 | RADRPT ---
EXAM DATE/TIME: 12/29/2017 03:54 [facility] COMPARISON: ABDOMEN KUB ONLY, August 09, 2017, 10:02. INDICATIONS : Abdominal distention. MEDICAL HISTORY : None. SURGICAL HISTORY : None. ENCOUNTER: Initial ACUITY: 1 day PAIN SCORE: Non-responsive. LOCATION: Abdomen FINDINGS: NG tube coiled in the stomach. The bowel gas pattern demonstrates decreased colonic distention compar ed to the previous examination. Osseous structures are intact. CONCLUSION: Decreased bowel distention. Tyler Mahmood MD on December 29, 2017 at 4:36 Board Certified Radiologist. This report was verified electronically.
[2017-12-29 04:53] LABS: HEMOGLOBIN 9.7 GM/DL (13.0-17.0); MEAN CORPUSCULAR HEMOGLOBIN 32.6 PG (27.0-34.0); MEAN CORPUSCULAR HGB CONC 34.7 % (32.0-36.0); MEAN PLATELET VOLUME 7.6 FL (7.0-11.0); PLATELET COUNT 41 TH/MM3 (150-450); RED BLOOD COUNT 2.98 MIL/MM3 (4.50-5.90); WHITE BLOOD COUNT 1.7 TH/MM3 (4.0-11.0)
[2017-12-29 05:05] LABS: INTERNATIONAL NORMALIZED RATIO 1.6 RATIO; PROTHROMBIN TIME - PATIENT 16.2 SEC (9.8-11.6)
[2017-12-29 05:09] LABS: BICARBONATE 24.8 MEQ/L (21.0-32.0); CALCIUM 7.4 MG/DL (8.5-10.1); CALCIUM-PROTEIN CORRECTED 8.6 MG/DL (8.5-10.1); CREATININE 0.66 MG/DL (0.60-1.30); MAGNESIUM 2.2 MG/DL (1.5-2.5); TOTAL BILIRUBIN ADULT 5.3 MG/DL (0.2-1.0)
[2017-12-29] MEDS: PROPOFOL 1000 MG/100 ML INJ 100 ML IV PRN ×3 (05:14→20:21)
[2017-12-29] MEDS: FREE WATER G-TUBE SCH ×3 (05:14→20:45)
[2017-12-29] MEDS: ARTIFICIAL TEARS OPTH SOLN 15 ML BTL EACH EYE SCH ×3 (05:14→20:42)
[2017-12-29] MEDS: POTASSIUM PHOSPHATE INJ 30 MMOL in SODIUM CHLOR 0.9% 250 ML INJ 250 ML IV PRN (06:18)
[2017-12-29 07:06] LABS: BANDS 42 % (0-6); BASOPHILS 1 % (0-2); LYMPHOCYTES 8 % (9-44); MONOCYTES 1 % (0-8); NEUTROPHIL # MANUAL DIFF 1.5 TH/MM3 (1.8-7.7); POLYS (SEG NEUTROPHILS) 46 % (16-70)
[2017-12-29 07:07] LABS: BURR CELLS 1+ (NORMAL)
[2017-12-29 07:08] LABS: TEARDROP RBCS 1+ (NORMAL)
[2017-12-29] MEDS: CHLORHEXIDINE 0.12% (ORAL KIT) 15 ML CUP MT SCH ×2 (08:00→20:41)
[2017-12-29] MEDS: RIFAXIMIN 550 MG TAB PO SCH ×2 (09:00→20:40)
[2017-12-29] MEDS: SODIUM CHLORIDE 0.9% FLUSH 10 ML FLUSH IV FLUSH SCH ×3 (09:00→20:46)
--- NOTE | 2017-12-29 10:40 | HHI.HCPN ---
Reason for visit a. To assist with evaluation and management of symptoms including: Vomiting , depression b. To assist medical decision maker(s) with: better understanding of current medical conditions; weighing benefits/burdens of medical treatment options; making medical treatment decisions. Subjective/Interval History Remains on vent, resting quietly. Vital signs are stable off vasopressors, BP 111/54, heart rate 76, respiratory rate 12, oxygen saturation 96% on 35% FiO2, afebrile. Labs show a continued decline in white blood cells to 1.7 (1.9), hemoglobin 9.7, hematocrit 28.0, platelets 41 (received platelets 12/28), INR 1.6 (received 1 unit FFP 12/28), sodium 148, potassium 3.5, BUN 11, creatinine 0.66, total bilirubin 5.3, AST 64. Ammonia decreased from 180-102 on 12/28. No sign of bleeding today. Underwent EGD yesterday which showed a brief episode of bleeding but was unable to be relocated after initial sighting. Hemoglobin remained stable. . Family/friend interactions Spoke with patient's daughter, Fabi, via telephone and updated her as to the findings of the abdominal x-ray. She had seen the patient earlier today, but those reports were pending. She states that his brothers and sisters and remaining family have arrived late last night and will be traveling over from [place] later today. She states that she wishes to allow them the weekend to visit him, allow family conversations and schedule a meeting with palliative care on Monday to discuss prognosis and progress. She will contact me Monday morning to schedule a time once family has assembled. . Advance Directives Living Will: Copy in medical record Health Care Surrogate: Copy in medical record (reportedly, recently changed to assign his daughter, Fabi as his primary HCS and Rebekah Mendoza as his alternate. Trying to locate paperwork, completed at [facility] within last 1-2 weeks. ) Durable Power of [employer]: Copy in medical record Advance Directive Specifics Date completed: 04/22/06 Health Care Surrogate(s): By the telephone consent received from Melina Ndiaye and Emely Ndiaye, the patient's 2 younger daughters, they have ceded the decision making to their sister, Fabi, which is consistent with the wishes of the patient expressed by Rebekah Mendoza, the patient's DPOA and longtime caregiver, that the patient's most recent wish was that Fabi be the primary healthcare surrogate and Rebekah serve as the alternate. At this time the wheeze and agrees to serve as health care surrogate and is in contact with both of her sisters and Rebekah to assure that the patient's wishes, as he has expressed them to his friends and family, are honored. . Documented care wishes: Patient has completed a living will stating that in case he has a terminal, end- stage condition or a persistent vegetative state that he be allowed to without life-prolonging procedures, be given medication to alleviate pain and enhance comfort, not to be kept alive by ventilator's or other artificial life support nor to be tube fed or artificially hydrated to sustain life. . Objective Vital Signs Date Time Temp Pulse Resp B/P (MAP) Pulse Ox O2 Delivery O2 Flow Rate FiO2 12/29/17 07:20 96 35 12/29/17 07:00 Mechanical Ventilator 35 12/29/17 06:00 76 12/29/17 04:00 98 35 12/29/17 04:00 97.9 94 12 111/54 (73) 95 12/29/17 04:00 81 12/29/17 04:00 35 12/29/17 02:00 76 12/29/17 00:03 98 35 12/29/17 00:00 97.3 78 16 95/50 (65) 98 12/29/17 00:00 35 12/29/17 00:00 78 12/28/17 22:00 80 12/28/17 20:20 98 35 12/28/17 20:00 80 12/28/17 20:00 Mechanical Ventilator 35 12/28/17 20:00 98.1 76 16 96/55 (69) 98 12/28/17 20:00 35 12/28/17 18:07 99 40 12/28/17 18:00 83 12/28/17 16:00 98.5 89 16 107/58 (74) 99 12/28/17 16:00 40 12/28/17 16:00 89 12/28/17 14:00 96 12/28/17 13:08 100 40 12/28/17 12:00 40 12/28/17 12:00 98.4 92 16 105/55 (72) 100 12/28/17 12:00 92 Intake & Output 12/29/17 12/29/17 07:00 19:00 Intake Total 700 ml Output Total 1950 ml Balance -1250 ml Intake IV Total 200 ml Other 500 ml Output Urine Total 950 ml Gastric Drainage Total 1000 ml # Bowel Movements 0 Physical Exam CONSTITUTIONAL/GENERAL: This is an adequately nourished patient, in no apparent distress. TUBES/LINES/DRAINS: Left IJ CVL, ETT, NGT, Mcdonald EYES: Pupils equal and round and reactive. No scleral icterus. No injection or drainage. Fundi not examined. CARDIOVASCULAR: Regular rate and rhythm without murmurs, gallops, or rubs. No JVD. Peripheral pulses symmetric. RESPIRATORY/CHEST: Symmetric, unlabored respirations. Clear to auscultation. Breath sounds equal bilaterally. No wheezes, rales, or rhonchi. GASTROINTESTINAL: Abdomen distended, tight, hypoactive bowel sounds. GENITOURINARY: Without palpable bladder distension. Mcdonald catheter in place. MUSCULOSKELETAL: Extremities without clubbing, cyanosis, or edema. No mottling or clubbing. NEUROLOGICAL: Intubated, sedated. PSYCHIATRIC: Sedated. . Diagnostic Tests Laboratory Laboratory Tests Test 12/26/17 14:00 12/26/17 16:49 12/27/17 01:55 12/27/17 06:00 Hemoglobin 9.9 GM/DL (13.0-17.0) 10.0 GM/DL (13.0-17.0) 9.9 GM/DL (13.0-17.0) 10.2 GM/DL (13.0-17.0) Hematocrit 28.8 % (39.0-51.0) 28.7 % (39.0-51.0) 28.7 % (39.0-51.0) 29.0 % (39.0-51.0) Lactic Acid Level 1.8 mmol/L (0.4-2.0) 1.7 mmol/L (0.4-2.0) 1.8 mmol/L (0.4-2.0) 1.7 mmol/L (0.4-2.0) White Blood Count 2.4 TH/MM3 (4.0-11.0) Red Blood Count 3.15 MIL/MM3 (4.50-5.90) Mean Corpuscular Volume 92.0 FL (80.0-100.0) Mean Corpuscular Hemoglobin 32.2 PG (27.0-34.0) Mean Corpuscular Hemoglobin Concent 35.1 % (32.0-36.0) Red Cell Distribution Width 19.1 % (11.6-17.2) Platelet Count 28 TH/MM3 (150-450) Mean Platelet Volume 7.5 FL (7.0-11.0) CBC Comment AUTO DIFF Differential Total Cells Counted 100 Neutrophils % (Manual) 58 % (16-70) Band Neutrophils % 35 % (0-6) Lymphocytes % 4 % (9-44) Eosinophils % 3 % (0-4) Neutrophils # (Manual) 2.2 TH/MM3 (1.8-7.7) Differential Comment FINAL DIFF MANUAL Platelet Estimate LOW (NORMAL) Platelet Morphology Comment NORMAL (NORMAL) Ovalocytes 1+ (NORMAL) [place] Cells 1+ (NORMAL) Prothrombin Time 17.5 SEC (9.8-11.6) Prothromb Time International Ratio 1.7 RATIO Blood Urea Nitrogen 17 MG/DL (7-18) Creatinine 0.71 MG/DL (0.60-1.30) Random Glucose 92 MG/DL (74-106) Total Protein 4.8 GM/DL (6.4-8.2) Albumin 1.9 GM/DL (3.4-5.0) Calcium Level 7.3 MG/DL (8.5-10.1) Alkaline Phosphatase 66 U/L (45-117) Aspartate Amino Transf (AST/SGOT) 47 U/L (15-37) Alanine Aminotransferase (ALT/SGPT) 22 U/L (12-78) Total Bilirubin 5.9 MG/DL (0.2-1.0) Sodium Level 148 MEQ/L (136-145) Potassium Level 3.3 MEQ/L (3.5-5.1) Chloride Level 117 MEQ/L (98-107) Carbon Dioxide Level 24.3 MEQ/L (21.0-32.0) Anion Gap 7 MEQ/L (5-15) Estimat Glomerular Filtration Rate 112 ML/MIN (>89) Protein Corrected Calcium 8.6 MG/DL (8.5-10.1) Test 12/27/17 19:45 12/27/17 20:56 12/28/17 04:05 12/28/17 16:10 White Blood Count 2.2 TH/MM3 (4.0-11.0) 1.9 TH/MM3 (4.0-11.0) Red Blood Count 3.00 MIL/MM3 (4.50-5.90) 2.99 MIL/MM3 (4.50-5.90) Hemoglobin 9.7 GM/DL (13.0-17.0) 9.6 GM/DL (13.0-17.0) 9.5 GM/DL (13.0-17.0) Hematocrit 27.9 % (39.0-51.0) 27.7 % (39.0-51.0) 28.2 % (39.0-51.0) Mean Corpuscular Volume 93.0 FL (80.0-100.0) 92.8 FL (80.0-100.0) Mean Corpuscular Hemoglobin 32.3 PG (27.0-34.0) 32.3 PG (27.0-34.0) Mean Corpuscular Hemoglobin Concent 34.8 % (32.0-36.0) 34.8 % (32.0-36.0) Red Cell Distribution Width 20.0 % (11.6-17.2) 21.2 % (11.6-17.2) Platelet Count 35 TH/MM3 (150-450) 36 TH/MM3 (150-450) Mean Platelet Volume 7.3 FL (7.0-11.0) 6.8 FL (7.0-11.0) Blood Urea Nitrogen 13 MG/DL (7-18) 13 MG/DL (7-18) Creatinine 0.67 MG/DL (0.60-1.30) 0.63 MG/DL (0.60-1.30) Random Glucose 118 MG/DL (74-106) 109 MG/DL (74-106) Calcium Level 7.5 MG/DL (8.5-10.1) 7.2 MG/DL (8.5-10.1) Phosphorus Level 2.5 MG/DL (2.5-4.9) 1.6 MG/DL (2.5-4.9) Magnesium Level 2.3 MG/DL (1.5-2.5) 2.2 MG/DL (1.5-2.5) Sodium Level 148 MEQ/L (136-145) 148 MEQ/L (136-145) Potassium Level 3.6 MEQ/L (3.5-5.1) 3.3 MEQ/L (3.5-5.1) Chloride Level 117 MEQ/L (98-107) 117 MEQ/L (98-107) Carbon Dioxide Level 24.2 MEQ/L (21.0-32.0) 24.6 MEQ/L (21.0-32.0) Anion Gap 7 MEQ/L (5-15) 6 MEQ/L (5-15) Estimat Glomerular Filtration Rate 120 ML/MIN (>89) 129 ML/MIN (>89) Neutrophils (%) (Auto) 63.8 % (16.0-70.0) Lymphocytes (%) (Auto) 13.5 % (9.0-44.0) Monocytes (%) (Auto) 17.5 % (0.0-8.0) Eosinophils (%) (Auto) 4.4 % (0.0-4.0) Basophils (%) (Auto) 0.8 % (0.0-2.0) Neutrophils # (Auto) 1.2 TH/MM3 (1.8-7.7) Lymphocytes # (Auto) 0.3 TH/MM3 (1.0-4.8) Monocytes # (Auto) 0.3 TH/MM3 (0-0.9) Eosinophils # (Auto) 0.1 TH/MM3 (0-0.4) Basophils # (Auto) 0.0 TH/MM3 (0-0.2) CBC Comment AUTO DIFF Differential Total Cells Counted 100 Neutrophils % (Manual) 50 % (16-70) Band Neutrophils % 34 % (0-6) Lymphocytes % 8 % (9-44) Monocytes % 2 % (0-8) Eosinophils % 4 % (0-4) Basophils % 2 % (0-2) Neutrophils # (Manual) 1.6 TH/MM3 (1.8-7.7) Differential Comment FINAL DIFF MANUAL Platelet Estimate LOW (NORMAL) Platelet Morphology Comment NORMAL (NORMAL) Ovalocytes 1+ (NORMAL) Prothrombin Time 18.2 SEC (9.8-11.6) Prothromb Time International Ratio 1.8 RATIO Activated Partial Thromboplast Time 36.8 SEC (24.3-30.1) Fibrinogen 239 mg/dL (227-377) Total Protein 5.0 GM/DL (6.4-8.2) Albumin 1.9 GM/DL (3.4-5.0) Alkaline Phosphatase 71 U/L (45-117) Aspartate Amino Transf (AST/SGOT) 59 U/L (15-37) Alanine Aminotransferase (ALT/SGPT) 30 U/L (12-78) Total Bilirubin 5.9 MG/DL (0.2-1.0) Lactic Acid Level 1.5 mmol/L (0.4-2.0) Protein Corrected Calcium 8.3 MG/DL (8.5-10.1) Ammonia 102 MCMOL/L (11-32) Test 12/28/17 22:20 12/29/17 04:10 Blood Urea Nitrogen 11 MG/DL (7-18) 11 MG/DL (7-18) Creatinine 0.58 MG/DL (0.60-1.30) 0.66 MG/DL (0.60-1.30) Random Glucose 106 MG/DL (74-106) 98 MG/DL (74-106) Total Protein 4.9 GM/DL (6.4-8.2) 5.0 GM/DL (6.4-8.2) Albumin 1.9 GM/DL (3.4-5.0) 2.0 GM/DL (3.4-5.0) Calcium Level 6.7 MG/DL (8.5-10.1) 7.4 MG/DL (8.5-10.1) Phosphorus Level 2.3 MG/DL (2.5-4.9) 2.0 MG/DL (2.5-4.9) Magnesium Level 2.0 MG/DL (1.5-2.5) 2.2 MG/DL (1.5-2.5) Alkaline Phosphatase 72 U/L (45-117) 78 U/L (45-117) Aspartate Amino Transf (AST/SGOT) 63 U/L (15-37) 64 U/L (15-37) Alanine Aminotransferase (ALT/SGPT) 39 U/L (12-78) 37 U/L (12-78) Total Bilirubin 5.2 MG/DL (0.2-1.0) 5.3 MG/DL (0.2-1.0) Sodium Level 151 MEQ/L (136-145) 148 MEQ/L (136-145) Potassium Level 3.6 MEQ/L (3.5-5.1) 3.5 MEQ/L (3.5-5.1) Chloride Level 119 MEQ/L (98-107) 117 MEQ/L (98-107) Carbon Dioxide Level 25.4 MEQ/L (21.0-32.0) 24.8 MEQ/L (21.0-32.0) Anion Gap 7 MEQ/L (5-15) 6 MEQ/L (5-15) Estimat Glomerular Filtration Rate 142 ML/MIN (>89) 122 ML/MIN (>89) Protein Corrected Calcium 7.8 MG/DL (8.5-10.1) 8.6 MG/DL (8.5-10.1) White Blood Count 1.7 TH/MM3 (4.0-11.0) Red Blood Count 2.98 MIL/MM3 (4.50-5.90) Hemoglobin 9.7 GM/DL (13.0-17.0) Hematocrit 28.0 % (39.0-51.0) Mean Corpuscular Volume 94.0 FL (80.0-100.0) Mean Corpuscular Hemoglobin 32.6 PG (27.0-34.0) Mean Corpuscular Hemoglobin Concent 34.7 % (32.0-36.0) Red Cell Distribution Width 23.0 % (11.6-17.2) Platelet Count 41 TH/MM3 (150-450) Mean Platelet Volume 7.6 FL (7.0-11.0) CBC Comment AUTO DIFF Differential Total Cells Counted 100 Neutrophils % (Manual) 46 % (16-70) Band Neutrophils % 42 % (0-6) Lymphocytes % 8 % (9-44) Monocytes % 1 % (0-8) Eosinophils % 2 % (0-4) Basophils % 1 % (0-2) Neutrophils # (Manual) 1.5 TH/MM3 (1.8-7.7) Differential Comment FINAL DIFF MANUAL Platelet Estimate LOW (NORMAL) Platelet Morphology Comment NORMAL (NORMAL) [place] Cells 1+ (NORMAL) [place] Cells 1+ (NORMAL) Prothrombin Time 16.2 SEC (9.8-11.6) Prothromb Time International Ratio 1.6 RATIO Activated Partial Thromboplast Time 34.4 SEC (24.3-30.1) Fibrinogen 240 mg/dL (227-377) . Result Diagram: 12/29/1740912/29/17409 Imaging Last Impressions Chest X-Ray 12/29/17599 Signed Impressions: Service Date/Time: Friday, December 29, 2017 03:52 - CONCLUSION: No significant change has occurred. Tyler Mahmood MD Abdomen X-Ray 12/29/17599 Signed Impressions: Service Date/Time: Friday, December 29, 2017 03:54 - CONCLUSION: Decreased bowel distention. Tyler Mahmood MD Liver Ultrasound 12/25/17 0000 Signed Impressions: Service Date/Time: Monday, December 25, 2017 09:17 - CONCLUSION: 1. Cirrhotic appearing liver with mild splenomegaly consistent with portal hypertension. The portal vein is patent with hepatopedal flow. 2. Gallbladder wall thickening with small amount of sludge and dominant gallstone. These findings are typically seen in patient's with chronic liver condition. 3. Incidental note of small bilateral pleural effusions. Jorge Roche MD . Procedures Orotracheal intubation 12/24/17 Left IJ central line placement 12/24/18 . Assessment and Plan Disease Oriented Problem List: (1) Abnormal LFTs (2) Septic shock (3) Hepatic failure (4) UGI bleed (5) Thrombocytopenia Symptom Scale: (1) Vomiting 0-10 Scale: Unable to quantify (patient intubated and sedated.) (2) Depression 0-10 Scale: Unable to quantify (patient intubated and sedated.) Pertinent Non-Medical Issues Psychosocial:Born in [place] but lived in [place] for many years. He has one sister who lives in [place]. He has been living in [place] for over 25 years, currently resides in [place]. He has 3 daughters, Fabi, who lives in [place], Melina who lives in [place] and Emely who lives in [place]. His recently . Spiritual: He is Religious and sacraments of the sick have been requested. Legal: He has a previous healthcare surrogate naming his late and his daughter Melina as healthcare surrogates. He has reportedly recently completed new advanced directives naming his daughter Fabi as his primary healthcare surrogate and Rebekah Mendoza as his alternate. We are attempting to locate that paperwork through [email or web address] information management, however in the meantime, I have spoken with all 3 daughters and Ms. Mendoza, all who agree that Fabi should be the decision-maker, as they know that is consistent with their father's wishes. Ethical issues impacting care: None noted. . Important Contacts Daughter: Fabi , Daughter: Melina Daughter: Emely Friend: Rebekah Mendoza, his reported DPOA . Prognosis His prognosis is poor. He is currently on mechanical ventilator requiring vasopressor support for hemodynamic stability. He has a known history of end- stage liver disease with esophageal varices and has recently resumed heavy alcohol intake after nearly a year of abstinence. He had previously been pursuing a liver transplant at the request of his late , but since her , he has stated to his daughters that he did not plan to go forth with the transplant. He has pancytopenia and coagulopathy. He is at high risk for continued bleeding and further complications. . Code Status: Full Code (pending arrival of the family for further decision making.) Plan PLAN: Legal decision maker: At this time his previous healthcare surrogate names his late as his primary and his daughter Melina as his secondary healthcare surrogate. There is reportedly a new healthcare surrogate completed but not available to us at this time. By [place] statutes we would abide by the previous healthcare surrogate having Melina as the decision-maker. Melina is aware that a recent descent with her father had caused him to change his mind and she and her sister Emely have requested that decision making be done by their sister Fabi, as they state that that is consistent with their father's wishes. Goals: Aggressive at this time pending arrival of the family at bedside. CODE STATUS: FULL CODE SYMPTOMS: * Vomiting: He was admitted with hematemesis and currently has an NG tube placed to low intermittent wall suction with dark brownish appearing drainage. Ondansetron is available. The patient remains on a Protonix and an octreotide drip. No continued vomiting at this time. * Depression: Patient has been significantly depressed since the loss of his and had resumed heavy alcohol use. He told his daughter believes that he did not plan to pursue liver transplant and that he did not "wish to sober" . I have contacted the medical office clerk to arrange a buzzsaw operator helper visit for sacraments of the sick at the family's request and will continue to pursue social support if he stabilizes clinically. His recently while on hospice, making him eligible for hospice bereavement services if clinically stabilizes. His family is visiting from [place] and [place], which may lift some depression if he tolerates sedation vacation well. Up until that time, family has requested that he remains sedated to support stability until family arrives. Palliative care will continue to follow the patient during hospital course as condition evolves, to assist patient/decision-maker with understanding of their medical conditions, weighing benefits/burdens of treatment options, for clarification of goals of treatment. Additionally will assist with any symptoms of palliative concern. . Attestation To help prompt me to consider important information that might be impacting today's encounter and assessment, information from prior notes written by myself or my colleagues may have been "brought forward" into today's note. My signature on this note, however, is an attestation that I personally performed the exam, history, and/or decision-making noted today, and, unless otherwise indicated, the interactions with patient, family, and staff as well as the review of records all occurred today. I also attest that the listed assessment and stated plan reflect my best clinical judgment today based on the combination of historical information, prior notes, and today's exam/ interactions. When time spent is documented, it refers only to time spent today by the signer, or if indicated, combined time spent today by collaborating physician/nurse practitioner. . Codi Norman Dec 29, 2017 10:40
[2017-12-29] MEDS: fentaNYL DRIP 250 ML IV PRN (12:19)
[2017-12-29] MEDS ORDERED: ALBUMIN 25% INJ 50 ML IV ONE (13:00)
[2017-12-29] MEDS ORDERED: FUROSEMIDE 40 MG/4 ML VIAL IV PUSH ONE (13:00)
--- NOTE | 2017-12-29 13:14 | HHI.CCPN ---
Subjective Remarks/Hospital Course 62 yo male. Date of admission 12/24/2017. Consultation 12/24/2017. Past medical history includes liver cirrhosis with recurrent upper GI bleeding. He was diagnosed 04/11 with liver cirrhosis. He states he quit drinking alcohol that time he was followed at [facility] for liver transplantation evaluation. April 2017, upper GI bleeding - distal Russell's esophagus and grade 1 varices. Stomach no bladder ulcers. Mucosa does not appear edematous duodenum. Status post angiogram of the celiac, SMA revealed no hemorrhagic focus identified. No further bleeding. Patient was again admitted 08/13 for upper GI bleed. EGD revealed grade 1-2 septal varices in no active bleeding. Gastric varices in the fundus just 2 cm GE junction actively squirting blood. Banding not possible so injected with 6 cc of epinephrine to stop the bleeding. Large clots and stomach. Remain intubated on octreotide and Protonix drips. Recommended if continued bleeding need to consider for TIPS. Most recently was admitted December 11, 2017 with alcohol toxicity. His has recently and he has drinking alcohol again. His alcohol levels currently 234. He presented today with upper GI bleeding. He is noted to be pancytopenic in with a white blood cell count of 3.8. Hemoglobin 7.1 and platelets of 30. INR is 1.9. AST is elevated. Alcohol level is 234. Patient received 6 L normal saline was started on a Protonix and octreotide drip. He remained hypotensive and peripheral vasopressors were started. Payroll And Benefits Assistant was consulted along with GI. Due to the upper GI bleed decision was made to secure the airway with oral tracheal intubation and placement of central line to receive rapid transfusion. I discussed this with daughter Fabi Ndiaye [phone] and she is in agreement with aggressive plans at the present time. I described to her d- dimer nature of his current clinical situation and she wished to be made aware of any medical decisions that need to be made. Michelle did make her the healthcare proxy at this time. 12/25: Transfused 6 PRBCs, 2 FFP and 2 platelets overnight. Currently norepinephrine at 5 mcg/m and vasopressin 0.04 units per minute. Afebrile. Arousable on the ventilator. We'll transfuse FFP, cryoprecipitate and platelets again this AM 12/26 Patient remains intubated and sedation . On Octreotide and Protonix drips. In addition he is on Levopehd 1 saul and Vasopressin0.04. NGT ahd approx 200ml coffee ground gastric output, 12/27: No further bleeding noted. INR currently 1.7. Platelets to 28K. family to arrive late . Possibly transition to comfort care Monday, however request aggressive cares in the interim short of CPR. 12/28: Status post EGD today. Possible brief episode of esophageal varices resolved. Portal gastropathy noted. Hemoglobin stable. Remains intubated. Subjective 12/29: Remains intubated. No active bleeding. Hemoglobin stable. Will diurese today. Positive since admission. No bowel movement Objective Vital Signs Date Time Temp Pulse Resp B/P (MAP) Pulse Ox O2 Delivery O2 Flow Rate FiO2 12/29/17 12:00 102 12/29/17 12:00 35 12/29/17 12:00 95.1 16 105/56 (72) 99 12/29/17 07:00 Mechanical Ventilator Intake and Output 12/29/17 12/29/17 12/30/17 08:00 16:00 00:00 Intake Total 500 ml Output Total 1950 ml Balance -1450 ml Result Diagram: 12/29/17 0410 12/29/17 0410 Imaging Last Impressions Chest X-Ray 12/29/17 06 Signed Impressions: Service Date/Time: Friday, December 29, 2017 03:52 - CONCLUSION: No significant change has occurred. Tyler Mahmood MD Abdomen X-Ray 12/29/17 0600 Signed Impressions: Service Date/Time: Friday, December 29, 2017 03:54 - CONCLUSION: Decreased bowel distention. Tyler Mahmood MD Liver Ultrasound 12/25/17 0000 Signed Impressions: Service Date/Time: Monday, December 25, 2017 09:17 - CONCLUSION: 1. Cirrhotic appearing liver with mild splenomegaly consistent with portal hypertension. The portal vein is patent with hepatopedal flow. 2. Gallbladder wall thickening with small amount of sludge and dominant gallstone. These findings are typically seen in patient's with chronic liver condition. 3. Incidental note of small bilateral pleural effusions. Jorge Roche MD Objective Remarks GENERAL: 62 -year-old male currently orotracheally intubated SKIN: Warm and dry. No rash HEAD: Atraumatic. Normocephalic. EYES: Pupils equal and round about 3 mm bilaterally and reactive. + scleral icterus. No injection or drainage. ENT: Blood from oral mucosa during intubation notice. Positive petechiae. NECK: Trachea midline. No JVD. CARDIOVASCULAR: Regular rate and rhythm. S1, S2. No S4. RESPIRATORY: No accessory muscle use. Clear to auscultation. Breath sounds equal bilaterally. GASTROINTESTINAL: Abdomen slightly taut, nontender. Hypoactive bowel sounds are appreciated. MUSCULOSKELETAL: Extremities with trace lower extremity edema. No obvious deformities. NEUROLOGICAL: Awake and alert. No obvious cranial nerve deficits. Motor grossly within normal limits. Five out of 5 muscle strength in the arms and legs. Normal speech prior to intubation 12/24. Urinary Catheter: Yes Assessment to: Continue Mcdonald insert reason: Prolonged Immobilization Vascular Central Line Catheter: Yes Assessment to: Continue Date of Insertion: Dec 24, 2017 Line: Central Venous Catheter Side: Left Location: Internal, Jugular A/P Assessment and Plan Neuro/Psych: EtOH intoxication Toxic metabolic encephalopathy secondary to elevated ammonia Currently on fentanyl drips in drip at 100 mg an hour/propofol drip at 35 mcg/ kg per minute for sedation/analgesia while intubated Goal of RASS -2 Daily sedation vacation Ofirmev 1 g IV every 8 hours when necessary fever EtOH level was 234. on vitamin bag daily for 3 days and switch to thiamine 100 mg IV daily on 12/27 Follow-up on ammonia level in a.m. History of toxic metabolic encephalopathy secondary to elevated ammonia CV: Currently off all vasopressors. On one half normal saline at 50 cc an hour Goal keep mean arterial pressure greater than equal to 65 1 dose of furosemide today 60 mg IV 1 due to volume overload along with albumin 25 g 50 cc 1. Resp: Acute hypoxemic respiratory failure History of loculated right pleural effusion status post right chest tube/Pleurx catheter PRVC 16/500/12/01/39 Ventilator bundle Albuterol/ipratropium aerosols every 6 hours with albuterol aerosols every 2 hours. Dyspnea Maintain head of bed at 30 CXR: Basilar airspace consolidation GI: Recurrent upper GI bleeding - negative gastroduodenal artery evaluation 05/13 History of esophageal varices - grade 1-2. Most recently epinephrine injected Portal gastropathy Portal hypertension Splenomegaly EtOH cirrhosis History of Alicia-Dyson tear History of Russell's esophagus Hyperammonia Hypoalbuminemia Elevated total bilirubin Currently NPO On pantoprazole drip at 8 mg an hour and Sandostatin drip at 50 g an hour ceftriaxone 1 g daily for upper GI bleed GI following Dr. Marie. s/p EGD: Probable gastric varices, portal gastropathy and Russell;s esophagus Continue lactulose 30 cc Q6 and Xifaxan 550 mill grams twice a day for elevated ammonia level. Follow-up ammonia level 180 12/26. Recheck 12/28 102. Renal/: Mcdonald catheter for accurate I's and O's in a critically ill patient Adjust IV fluid to half-normal saline at 50 cc an hour Endo: Sliding-scale insulin with Accu-Cheks to maintain euglycemia/low regimen every 4 hours Heme: Pancytopenia - chronic secondary to hypersplenism secondary to liver cirrhosis Coagulopathy - secondary underlying liver disease s/p Transfusion 5 FFP,6 u PRBCs, 4 pack platelets, Cryo Recheck CBC at [address] Elias for intermittent transfusions and Neupogen injections during prior hospitalizations Haptoglobin slightly low at 29. LDH normal. ID: Monitor for infection On ceftriaxone for upper GI bleed MSK: PT evaluate and treat FEN Hypernatremia Hypophosphatemia Replace electrolytes per ICU electrolyte protocol Follow-up on phosphorus night Access - Left IJ CVL day #6 place 12/24 Prophylaxis - GI - pantoprazole drip/octreotide drip - DVT - SCD/pharmacological prophylaxis contraindicated with upper GI bleed Palliative care is following Critical Care: The total critical care time was 30 minutes. Time to perform other separately billable procedures was not included in the critical care time. Ryley Casey MD Dec 29, 2017 13:14
--- NOTE | 2017-12-29 14:31 | HHI.GIFU ---
Subjective Remarks Pt resting in bed, intubated on vent. No bleeding. (Adriana Ham VACUUM PAN TENDER) Objective Vitals I&O Vital Signs Date Time Temp Pulse Resp B/P (MAP) Pulse Ox O2 Delivery O2 Flow Rate FiO2 12/29/17 12:00 102 12/29/17 12:00 35 12/29/17 12:00 95.1 102 16 105/56 (72) 99 12/29/17 10:57 97 35 12/29/17 10:00 94.5 88 16 95/52 (66) 98 12/29/17 10:00 88 12/29/17 08:00 80 12/29/17 08:00 96.4 80 16 97/56 (70) 96 12/29/17 08:00 35 12/29/17 07:20 96 35 12/29/17 07:00 Mechanical Ventilator 35 12/29/17 06:00 76 12/29/17 04:00 98 35 12/29/17 04:00 97.9 94 12 111/54 (73) 95 12/29/17 04:00 81 12/29/17 04:00 35 12/29/17 02:00 76 12/29/17 00:03 98 35 12/29/17 00:00 97.3 78 16 95/50 (65) 98 12/29/17 00:00 35 12/29/17 00:00 78 12/28/17 22:00 80 12/28/17 20:20 98 35 12/28/17 20:00 80 12/28/17 20:00 Mechanical Ventilator 35 12/28/17 20:00 98.1 76 16 96/55 (69) 98 12/28/17 20:00 35 12/28/17 18:07 99 40 12/28/17 18:00 83 12/28/17 16:00 98.5 89 16 107/58 (74) 99 12/28/17 16:00 40 12/28/17 16:00 89 I/O 12/28/17 12/28/17 12/28/17 12/29/17 12/29/17 12/29/17 07:00 15:00 23:00 07:00 15:00 23:00 Intake Total 1387 ml 240 ml 2560 ml 500 ml Output Total 1050 ml 1400 ml 1950 ml Balance 337 ml 240 ml 1160 ml -1450 ml Intake IV Total 887 ml 115 ml 1561 ml FFP 309 ml Platelets 290 ml Blood Product IV Normal Saline Flush 25 ml 100 ml Other 500 ml 100 ml 300 ml 500 ml Output Urine Total 800 ml 900 ml 950 ml Gastric Drainage Total 250 ml 500 ml 1000 ml # Bowel Movements 0 Laboratory Laboratory Tests Test 12/28/17 16:10 12/28/17 22:20 12/29/17 04:10 Hemoglobin 9.5 9.7 Hematocrit 28.2 28.0 Blood Urea Nitrogen 11 11 Creatinine 0.58 0.66 Random Glucose 106 98 Total Protein 4.9 5.0 Albumin 1.9 2.0 Calcium Level 6.7 7.4 Phosphorus Level 2.3 2.0 Magnesium Level 2.0 2.2 Alkaline Phosphatase 72 78 Aspartate Amino Transf (AST/SGOT) 63 64 Alanine Aminotransferase (ALT/SGPT) 39 37 Total Bilirubin 5.2 5.3 Sodium Level 151 148 Potassium Level 3.6 3.5 Chloride Level 119 117 Carbon Dioxide Level 25.4 24.8 Anion Gap 7 6 Estimat Glomerular Filtration Rate 142 122 Protein Corrected Calcium 7.8 8.6 White Blood Count 1.7 Red Blood Count 2.98 Mean Corpuscular Volume 94.0 Mean Corpuscular Hemoglobin 32.6 Mean Corpuscular Hemoglobin Concent 34.7 Red Cell Distribution Width 23.0 Platelet Count 41 Mean Platelet Volume 7.6 CBC Comment AUTO DIFF Differential Total Cells Counted 100 Neutrophils % (Manual) 46 Band Neutrophils % 42 Lymphocytes % 8 Monocytes % 1 Eosinophils % 2 Basophils % 1 Neutrophils # (Manual) 1.5 Differential Comment FINAL DIFF MANUAL Platelet Estimate LOW Platelet Morphology Comment NORMAL Tear Drop Cells 1+ Khang Cells 1+ Prothrombin Time 16.2 Prothromb Time International Ratio 1.6 Activated Partial Thromboplast Time 34.4 Fibrinogen 240 Imaging Last Impressions Chest X-Ray 12/29/17599 Signed Impressions: Service Date/Time: Friday, December 29, 2017 03:52 - CONCLUSION: No significant change has occurred. Tyler Mahmood MD Abdomen X-Ray 12/29/17 06 Signed Impressions: Service Date/Time: Friday, December 29, 2017 03:54 - CONCLUSION: Decreased bowel distention. Tyler Mahmood MD Liver Ultrasound 12/25/17 0000 Signed Impressions: Service Date/Time: Monday, December 25, 2017 09:17 - CONCLUSION: 1. Cirrhotic appearing liver with mild splenomegaly consistent with portal hypertension. The portal vein is patent with hepatopedal flow. 2. Gallbladder wall thickening with small amount of sludge and dominant gallstone. These findings are typically seen in patient's with chronic liver condition. 3. Incidental note of small bilateral pleural effusions. Jorge Roche MD Physical Exam HEENT: normocephalic; atraumatic; no jaundice. intubated CHEST: CTA CARDIAC: tachy ABDOMEN: distended, semifirm, BS faint EXTREMITIES: No clubbing, cyanosis, +BLE edema SKIN: Normal; no rash; mild jaundice. 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 12/27/17 - s/p EGD 12/25 --> GIB etiology unclear but prob varices, samayoa's, portal gastropathy, view obscured by fluid HH stable, decreasing OGT output. INR 1.7 and PLT 28 he will be getting transfused 12/29/17 s/p EGD 12/28/17 found short segment Barretts, portal gastropathy. HH stable. PLT mildly improved s/p 1 x PLT INR 1.6. palliative care following. pretty distended, KUB shows decreased bowel distention. PLAN - monitor labs - notify GI of active bleeding - supportive care pt seen by myself and Dr Wadsworth and this note is written on his behalf (Adriana Ham) Physician Comments Seen and examined with VACUUM PAN TENDER, no active bleeding reported. On octreotide/ Protonix. NG to L.I.S (Olman Wadsworth MD) Adriana Ham Dec 29, 2017 14:31 Olman Wadsworth MD Dec 29, 2017 15:42
[2017-12-29] MEDS ORDERED: SENNOSIDES SYRUP 8.8 MG/5 ML CUP PO ONE (16:45)
[2017-12-29 17:42] LABS: PHOSPHORUS 2.6 MG/DL (2.5-4.9)
[2017-12-29] MEDS: THIAMINE INJ 100 MG in SODIUM CHLORIDE 0.9% INJ 100 ML IV SCH (18:21)
[2017-12-29] MEDS: DOCUSATE SODIUM 100 MG/10 ML UDC PO SCH (20:40)
[2017-12-29] MEDS: cefTRIAXone INJ 1,000 MG in SODIUM CHLORIDE 0.9% INJ 100 ML IV SCH (20:41)
[2017-12-29] MEDS: POTASSIUM CHLOR 20 MEQ PREMIX 100 ML IV PRN ×2 (21:32→23:26)
[2017-12-30] VITALS (22 sets, daily range): BP systolic 90–105; BP diastolic 51–59; PULSE 94–109; RESP 16; TEMP 98–98.4; O2SAT 92–97
[2017-12-30] MEDS: PROPOFOL 1000 MG/100 ML INJ 100 ML IV PRN ×3 (02:00→16:21)
[2017-12-30] MEDS: RESP: ALBUTEROL 2.5 MG/IPRATROPIUM 0.5 MG NEB (SCH) INH ×4 (03:44→19:26)
[2017-12-30] MEDS: CHLORHEXIDINE GLUCONATE 2 % 1 PACK (2 CLOTHS) TOP SCH (04:00)
--- NOTE | 2017-12-30 04:43 | RADRPT ---
EXAM DATE/TIME: 12/30/2017 03:46 [place] COMPARISON: No previous studies available for comparison. INDICATIONS : Shortness of breath, possible pulmonary disease. MEDICAL HISTORY : Hypertension. Renal calculi. Cirrhosis. Esophageal varices ETOh abuse SURGICAL HISTORY : Paracentesis ENCOUNTER: Subsequent ACUITY: 4 - 6 days PAIN SCORE: Non-responsive. LOCATION: Bilateral chest FINDINGS: Left jugular line, endotracheal tube and enteric tube identified. There is a large left effusion and bilateral consolidation is seen. Overall there is increased effusion and consolidation on the left an d decreased effusion on the right. CONCLUSION: Bilateral airspace disease and effusion. Tyler Mahmood MD on December 30, 2017 at 4:40 Board Certified Radiologist. This report was verified electronically.
[2017-12-30] MEDS: FREE WATER G-TUBE SCH ×3 (04:45→17:10)
[2017-12-30] MEDS: LACTULOSE SYRUP 20 GM/30 ML CUP PO SCH ×4 (04:45→21:22)
[2017-12-30] MEDS: ARTIFICIAL TEARS OPTH SOLN 15 ML BTL EACH EYE SCH ×3 (04:45→21:23)
[2017-12-30] MEDS: fentaNYL DRIP 250 ML IV PRN ×2 (05:08→22:35)
[2017-12-30 05:36] LABS: AUTOMATED NEUTROPHIL # 1.3 TH/MM3 (1.8-7.7); BASOPHIL % 0.9 % (0.0-2.0); EOSINOPHIL # 0.1 TH/MM3 (0-0.4); HEMATOCRIT 29.3 % (39.0-51.0); HEMOGLOBIN 9.9 GM/DL (13.0-17.0); LYMPHOCYTE # 0.2 TH/MM3 (1.0-4.8); MEAN CELL VOLUME 94.9 FL (80.0-100.0); MEAN CORPUSCULAR HEMOGLOBIN 32.1 PG (27.0-34.0); MEAN CORPUSCULAR HGB CONC 33.8 % (32.0-36.0); MEAN PLATELET VOLUME 7.6 FL (7.0-11.0); MONO % 17.2 % (0.0-8.0); MONOCYTE # 0.3 TH/MM3 (0-0.9); NEUT % 65.9 % (16.0-70.0); PLATELET COUNT 35 TH/MM3 (150-450); RED BLOOD COUNT 3.08 MIL/MM3 (4.50-5.90); RED CELL DISTRIBUTION WIDTH 22.5 % (11.6-17.2); WHITE BLOOD COUNT 1.9 TH/MM3 (4.0-11.0)
[2017-12-30 05:53] LABS: ALBUMIN 2.2 GM/DL (3.4-5.0); BICARBONATE 26.6 MEQ/L (21.0-32.0); CALCIUM 7.4 MG/DL (8.5-10.1); CALCIUM-PROTEIN CORRECTED 8.4 MG/DL (8.5-10.1); CREATININE 0.85 MG/DL (0.60-1.30); MAGNESIUM 1.9 MG/DL (1.5-2.5); PHOSPHORUS 2.3 MG/DL (2.5-4.9); TOTAL BILIRUBIN ADULT 5.7 MG/DL (0.2-1.0); TOTAL PROTEIN 5.3 GM/DL (6.4-8.2)
[2017-12-30 06:34] LABS: BANDS 34 % (0-6); LYMPHOCYTES 10 % (9-44); MONOCYTES 7 % (0-8); NEUTROPHIL # MANUAL DIFF 1.5 TH/MM3 (1.8-7.7); POLYS (SEG NEUTROPHILS) 45 % (16-70); TEARDROP RBCS 1+ (NORMAL)
[2017-12-30 06:35] LABS: KERATOCYTES 1+ (NORMAL); OVALOCYTES 1+ (NORMAL)
[2017-12-30] MEDS: OCTREOTIDE INJ 500 MCG in SODIUM CHLORID 0.9% 500 ML INJ 499.5 ML IV SCH ×2 (08:40→21:24)
[2017-12-30] MEDS: CHLORHEXIDINE 0.12% (ORAL KIT) 15 ML CUP MT SCH ×2 (08:40→21:20)
[2017-12-30] MEDS: RIFAXIMIN 550 MG TAB PO SCH ×2 (08:41→21:22)
[2017-12-30] MEDS: SODIUM CHLORIDE 0.9% FLUSH 10 ML FLUSH IV FLUSH SCH ×3 (08:41→21:20)
[2017-12-30] MEDS: DOCUSATE SODIUM 100 MG/10 ML UDC PO SCH ×2 (08:41→21:23)
[2017-12-30] MEDS ORDERED: SENNOSIDES SYRUP 8.8 MG/5 ML CUP PO SCH (09:00)
[2017-12-30] MEDS: VASOPRESSIN INJ 40 UNITS in DEXTROSE 5% IN WATER 100ML INJ 98 ML IV SCH ×2 (10:20)
[2017-12-30] MEDS: PANTOPRAZOLE INJ 80 MG in SODIUM CHLORIDE 0.9% INJ 100 ML IV SCH ×2 (10:37→19:14)
[2017-12-30] MEDS ORDERED: MAGNESIUM CITRATE SOLN 300 ML BTL OG-TUBE ONE (12:45)
--- NOTE | 2017-12-30 12:45 | HHI.GIFU ---
Subjective Remarks Patient is sedated on a vent, no Gi bleeding reported by nurse, OGT to suction with yellow gastric out put (Sofia Rubio) Objective Vitals I&O Vital Signs Date Time Temp Pulse Resp B/P (MAP) Pulse Ox O2 Delivery O2 Flow Rate FiO2 12/30/17 12:00 97 12/30/17 12:00 97.5 97 90/55 (67) 97 12/30/17 12:00 45 12/30/17 11:00 97.5 98 93/51 (65) 95 12/30/17 10:20 102 95/53 12/30/17 10:00 97.7 104 95/53 (67) 95 12/30/17 10:00 104 12/30/17 09:00 97.9 106 97/51 (66) 93 12/30/17 08:00 98.1 103 97/52 (67) 96 12/30/17 08:00 45 12/30/17 08:00 103 12/30/17 07:56 96 45 12/30/17 07:00 98.1 104 101/56 (71) 95 12/30/17 07:00 95 Mechanical Ventilator 12/30/17 06:00 104 12/30/17 04:00 98.0 109 93/52 (66) 93 12/30/17 04:00 109 12/30/17 04:00 45 12/30/17 03:55 45 12/30/17 03:45 92 45 12/30/17 02:00 96 12/30/17 00:00 101 12/30/17 00:00 98.4 101 16 105/54 (71) 96 12/30/17 00:00 35 12/29/17 23:37 95 35 12/29/17 22:00 95 12/29/17 20:00 98.9 99 16 96/53 (67) 97 12/29/17 20:00 35 12/29/17 20:00 99 12/29/17 19:29 99 35 12/29/17 19:00 97 Mechanical Ventilator 35 12/29/17 18:00 104 12/29/17 17:04 99 35 12/29/17 16:00 98.3 97 16 103/53 (70) 100 12/29/17 16:00 97 2/2/18 16:00 35 12/29/17 14:00 97 I/O 12/29/17 12/29/17 12/29/17 12/30/17 12/30/17 12/30/17 07:00 15:00 23:00 07:00 15:00 23:00 Intake Total 500 ml 310 ml 1640 ml 1050 ml 661.9 ml Output Total 1950 ml 2500 ml 760 ml Balance -1450 ml 310 ml -860 ml 290 ml 661.9 ml Intake IV Total 310 ml 800 ml 550 ml 661.9 ml FFP 315 ml Blood Product IV Normal Saline Flush 25 ml Other 500 ml 500 ml 500 ml Output Urine Total 950 ml 2250 ml 460 ml Gastric Drainage Total 1000 ml 250 ml 300 ml # Bowel Movements 0 0 0 Laboratory Laboratory Tests Test 12/29/17 17:00 12/30/17 05:00 Potassium Level 3.5 3.8 Phosphorus Level 2.6 2.3 White Blood Count 1.9 Red Blood Count 3.08 Hemoglobin 9.9 Hematocrit 29.3 Mean Corpuscular Volume 94.9 Mean Corpuscular Hemoglobin 32.1 Mean Corpuscular Hemoglobin Concent 33.8 Red Cell Distribution Width 22.5 Platelet Count 35 Mean Platelet Volume 7.6 Neutrophils (%) (Auto) 65.9 Lymphocytes (%) (Auto) 12.0 Monocytes (%) (Auto) 17.2 Eosinophils (%) (Auto) 4.0 Basophils (%) (Auto) 0.9 Neutrophils # (Auto) 1.3 Lymphocytes # (Auto) 0.2 Monocytes # (Auto) 0.3 Eosinophils # (Auto) 0.1 Basophils # (Auto) 0.0 CBC Comment AUTO DIFF Differential Total Cells Counted 100 Neutrophils % (Manual) 45 Band Neutrophils % 34 Lymphocytes % 10 Monocytes % 7 Eosinophils % 4 Neutrophils # (Manual) 1.5 Differential Comment FINAL DIFF MANUAL Platelet Estimate LOW Platelet Morphology Comment NORMAL Tear Drop Cells 1+ Ovalocytes 1+ Keratocytes 1+ Blood Urea Nitrogen 11 Creatinine 0.85 Random Glucose 89 Total Protein 5.3 Albumin 2.2 Calcium Level 7.4 Magnesium Level 1.9 Alkaline Phosphatase 92 Aspartate Amino Transf (AST/SGOT) 57 Alanine Aminotransferase (ALT/SGPT) 38 Total Bilirubin 5.7 Sodium Level 152 Chloride Level 118 Carbon Dioxide Level 26.6 Anion Gap 7 Estimat Glomerular Filtration Rate 91 Protein Corrected Calcium 8.4 Ammonia 123 Total Creatine Kinase 141 Imaging Last Impressions Chest X-Ray 12/30/17 06 Signed Impressions: Service Date/Time: Saturday, December 30, 2017 03:46 - CONCLUSION: Bilateral airspace disease and effusion. Tyler Mahmood MD Abdomen X-Ray 12/29/17 0600 Signed Impressions: Service Date/Time: Friday, December 29, 2017 03:54 - CONCLUSION: Decreased bowel distention. Tyler Mahmood MD Liver Ultrasound 12/25/17 0000 Signed Impressions: Service Date/Time: Monday, December 25, 2017 09:17 - CONCLUSION: 1. Cirrhotic appearing liver with mild splenomegaly consistent with portal hypertension. The portal vein is patent with hepatopedal flow. 2. Gallbladder wall thickening with small amount of sludge and dominant gallstone. These findings are typically seen in patient's with chronic liver condition. 3. Incidental note of small bilateral pleural effusions. Jorge Roche MD Physical Exam HEENT: normocephalic; atraumatic; no jaundice. intubated CHEST: CTA CARDIAC: tachy ABDOMEN: distended, semifirm, BS faint EXTREMITIES: No clubbing, cyanosis, +BLE edema SKIN: Normal; no rash; mild jaundice. 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 12/27/17 - s/p EGD 12/25 --> GIB etiology unclear but prob varices, samayoa's, portal gastropathy, view obscured by fluid HH stable, decreasing OGT output. INR 1.7 and PLT 28 he will be getting transfused 12/29/17 s/p EGD 12/28/17 found short segment Barretts, portal gastropathy. HH stable. PLT mildly improved s/p 1 x PLT INR 1.6. palliative care following. pretty distended, KUB shows decreased bowel distention. 12/30/17 - hgb stable, no GI bleed reported, he is on PPI drip and Octreotide No BM yet PLAN - monitor labs - notify GI of active bleeding - will give one dose of mag-citrate though OGt - Gi will sign off, please reconsult as needed pt seen by myself and Dr Wadsworth and this note is written on his behalf (Sofia Rubio) Physician Comments Seen and examined with RADIOLOGY MANAGER, no active bleeding. Can taper octreotide to off. IV protonix. TF as tolerated. Gi will sign off, reconsult as needed. Thank you. (Olman Wadsworth MD) Sofia Rubio Dec 30, 2017 12:45 Olman Wadsworth MD Dec 30, 2017 13:04
--- NOTE | 2017-12-30 13:10 | HHI.CCPN ---
Subjective Remarks/Hospital Course 62 yo male. Date of admission 12/24/2017. Consultation 12/24/2017. Past medical history includes liver cirrhosis with recurrent upper GI bleeding. He was diagnosed 04/11 with liver cirrhosis. He states he quit drinking alcohol that time he was followed at [facility] for liver transplantation evaluation. April 2017, upper GI bleeding - distal Russell's esophagus and grade 1 varices. Stomach no bladder ulcers. Mucosa does not appear edematous duodenum. Status post angiogram of the celiac, SMA revealed no hemorrhagic focus identified. No further bleeding. Patient was again admitted 08/13 for upper GI bleed. EGD revealed grade 1-2 septal varices in no active bleeding. Gastric varices in the fundus just 2 cm GE junction actively squirting blood. Banding not possible so injected with 6 cc of epinephrine to stop the bleeding. Large clots and stomach. Remain intubated on octreotide and Protonix drips. Recommended if continued bleeding need to consider for TIPS. Most recently was admitted December 11, 2017 with alcohol toxicity. His has recently and he has drinking alcohol again. His alcohol levels currently 234. He presented today with upper GI bleeding. He is noted to be pancytopenic in with a white blood cell count of 3.8. Hemoglobin 7.1 and platelets of 30. INR is 1.9. AST is elevated. Alcohol level is 234. Patient received 6 L normal saline was started on a Protonix and octreotide drip. He remained hypotensive and peripheral vasopressors were started. Slasher Sawyer was consulted along with GI. Due to the upper GI bleed decision was made to secure the airway with oral tracheal intubation and placement of central line to receive rapid transfusion. I discussed this with daughter Fabi Ndiaye [phone] and she is in agreement with aggressive plans at the present time. I described to her d- dimer nature of his current clinical situation and she wished to be made aware of any medical decisions that need to be made. Michelle did make her the healthcare proxy at this time. 12/25: Transfused 6 PRBCs, 2 FFP and 2 platelets overnight. Currently norepinephrine at 5 mcg/m and vasopressin 0.04 units per minute. Afebrile. Arousable on the ventilator. We'll transfuse FFP, cryoprecipitate and platelets again this AM 12/26 Patient remains intubated and sedation . On Octreotide and Protonix drips. In addition he is on Levopehd 1 saul and Vasopressin0.04. NGT ahd approx 200ml coffee ground gastric output, 12/27: No further bleeding noted. INR currently 1.7. Platelets to 28K. family to arrive late . Possibly transition to comfort care Monday, however request aggressive cares in the interim short of CPR. 12/28: Status post EGD today. Possible brief episode of esophageal varices resolved. Portal gastropathy noted. Hemoglobin stable. Remains intubated. 12/29: Remains intubated. No active bleeding. Hemoglobin stable. Will diurese today. Positive since admission. No bowel movement Subjective 12/30: Minimal diuresis overnight. Hemoglobin remained stable. No bowel movement. Ordered magnesium citrate per GI. Increasing bowel regimen from my standpoint. Diuresed with furosemide 40 mg IV twice a day. Objective Vital Signs Date Time Temp Pulse Resp B/P (MAP) Pulse Ox O2 Delivery O2 Flow Rate FiO2 12/30/17 12:00 97 12/30/17 12:00 97.5 90/55 (67) 97 12/30/17 12:00 45 12/30/17 07:00 Mechanical Ventilator 12/30/17 00:00 16 Intake and Output 12/30/17 12/30/17 12/31/17 08:00 16:00 00:00 Intake Total 950 ml 661.9 ml Output Total 760 ml Balance 190 ml 661.9 ml Result Diagram: 12/30/17 0500 12/30/17 0500 Imaging Last Impressions Chest X-Ray 12/29/17 0600 Signed Impressions: Service Date/Time: Friday, December 29, 2017 03:52 - CONCLUSION: No significant change has occurred. Tyler Mahmood MD Abdomen X-Ray 12/29/17 0600 Signed Impressions: Service Date/Time: Friday, December 29, 2017 03:54 - CONCLUSION: Decreased bowel distention. Tyler Mahmood MD Liver Ultrasound 12/25/17 0000 Signed Impressions: Service Date/Time: Monday, December 25, 2017 09:17 - CONCLUSION: 1. Cirrhotic appearing liver with mild splenomegaly consistent with portal hypertension. The portal vein is patent with hepatopedal flow. 2. Gallbladder wall thickening with small amount of sludge and dominant gallstone. These findings are typically seen in patient's with chronic liver condition. 3. Incidental note of small bilateral pleural effusions. Jorge Roche MD Objective Remarks GENERAL: 62 -year-old male currently orotracheally intubated SKIN: Warm and dry. No rash HEAD: Atraumatic. Normocephalic. EYES: Pupils equal and round about 3 mm bilaterally and reactive. + scleral icterus. No injection or drainage. ENT: Blood from oral mucosa during intubation notice. Positive petechiae. NECK: Trachea midline. No JVD. CARDIOVASCULAR: Regular rate and rhythm. S1, S2. No S4. RESPIRATORY: No accessory muscle use. Clear to auscultation. Breath sounds equal bilaterally. GASTROINTESTINAL: Abdomen slightly taut, nontender. Hypoactive bowel sounds are appreciated. MUSCULOSKELETAL: Extremities with trace lower extremity edema. No obvious deformities. NEUROLOGICAL: Awake and alert. No obvious cranial nerve deficits. Motor grossly within normal limits. Five out of 5 muscle strength in the arms and legs. Normal speech prior to intubation 12/24. Urinary Catheter: Yes Assessment to: Continue Mcdonald insert reason: ICU Pt Getting Diuretics Vascular Central Line Catheter: Yes Assessment to: Continue Date of Insertion: Dec 24, 2017 Line: Central Venous Catheter Side: Left Location: Internal, Jugular A/P Assessment and Plan Neuro/Psych: EtOH intoxication Toxic metabolic encephalopathy secondary to elevated ammonia Currently on fentanyl drips in drip at 100 mg an hour/propofol drip at 35 mcg/ kg per minute for sedation/analgesia while intubated Goal of RASS -2 Daily sedation vacation Ofirmev 1 g IV every 8 hours when necessary fever EtOH level was 234. on vitamin bag daily for 3 days and switch to thiamine 100 mg IV daily on 12/27 Follow-up on ammonia level in a.m. was 128. Recheck in a.m. History of toxic metabolic encephalopathy secondary to elevated ammonia CV: Currently off all vasopressors. On D5 water at 50 cc an hour Goal keep mean arterial pressure greater than equal to 65 1 dose of furosemide today 40 mg IV 1 old by 40 mg IV twice a day in attempt to diurese Resp: Acute hypoxemic respiratory failure History of loculated right pleural effusion status post right chest tube/Pleurx catheter [facility] 16/500/12/01/45 Ventilator bundle Albuterol/ipratropium aerosols every 6 hours with albuterol aerosols every 2 hours. Dyspnea Maintain head of bed at 30 CXR: Basilar airspace consolidation GI: Recurrent upper GI bleeding - negative gastroduodenal artery evaluation 05/13 History of esophageal varices - grade 1-2. Most recently epinephrine injected Portal gastropathy Portal hypertension Splenomegaly EtOH cirrhosis History of Alicia-Dyson tear History of Russell's esophagus Hyperammonia Hypoalbuminemia Elevated total bilirubin Currently NPO On pantoprazole drip at 8 mg an hour and Sandostatin drip at 25 g an hour ceftriaxone 1 g daily for upper GI bleed GI following Dr. Marie. s/p EGD: Probable gastric varices, portal gastropathy and Russell;s esophagus Continue lactulose 30 cc Q6 and Xifaxan 550 mill grams twice a day for elevated ammonia level. Follow-up ammonia level 180 12/26. Recheck 12/28 102.. 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 Elias for intermittent transfusions and Neupogen injections during prior hospitalizations Haptoglobin slightly low at 29. LDH normal. ID: Monitor for infection On ceftriaxone for upper GI bleed MSK: PT evaluate and treat FEN Hypernatremia Replace electrolytes per ICU electrolyte protocol On free water 250 every 6 hours and D5 water 50 cc an hour Follow-up on potassium tonight Access - Left IJ CVL day #7 place 12/24 Prophylaxis - GI - pantoprazole drip/octreotide drip - DVT - SCD/pharmacological prophylaxis contraindicated with upper GI bleed Palliative care is following Critical Care: The total critical care time was 30 minutes. Time to perform other separately billable procedures was not included in the critical care time. Ryley Casey MD Dec 30, 2017 13:10
[2017-12-30] MEDS ORDERED: MINERAL OIL EMULSION 55% PO ONE (13:15)
[2017-12-30] MEDS ORDERED: FUROSEMIDE 40 MG/4 ML VIAL IV PUSH ONE (13:15)
[2017-12-30] MEDS ORDERED: DEXTROSE 5% IN WATE 1000ML INJ 1,000 ML IV SCH (13:30)
--- NOTE | 2017-12-30 13:49 | RADRPT ---
EXAM DATE/TIME: 12/30/2017 13:16 [facility] COMPARISON: ABDOMEN KUB ONLY, December 29, 2017, 3:54. INDICATIONS : Abdominal distention and constipation. MEDICAL HISTORY : Hypertension. Esophageal varices. Paracentesis. Kidney stones. Liver disease. SURGICAL HISTORY : Paracentesis. Chest tube; right. Paracentesis. Bone spur right elbow. ENCOUNTER: Initial ACUITY: 2 days PAIN SCORE: Non-responsive. LOCATION: Bilateral abdomen FINDINGS: Supine view of the abdomen was performed. Gaseous distention of a few bowel loops but no obstruction. No abnormal masses, calcifications, or organomegaly is seen. The osseous structures are unremarkab le. Nasogastric tube with tip in stomach. CONCLUSION: Nonobstructive bowel gas pattern. Jerardo Alejandro MD on December 30, 2017 at 13:40 Board Certified Radiologist. This report was verified electronically.
[2017-12-30] MEDS: SODIUM CHLORIDE 23.4% INJ 38.5 MEQ in WATER STERILE FOR INJ 1,000 ML IV SCH (16:32)
[2017-12-30] MEDS: THIAMINE INJ 100 MG in SODIUM CHLORIDE 0.9% INJ 100 ML IV SCH (17:10)
[2017-12-30] MEDS: FUROSEMIDE 40 MG/4 ML VIAL IV PUSH SCH (17:10)
[2017-12-30] MEDS: SENNOSIDES SYRUP 8.8 MG/5 ML CUP NG SCH (21:22)
[2017-12-30] MEDS: POLYETHYLENE GLYCOL 17 GM PKG NG SCH (21:22)
[2017-12-30] MEDS: cefTRIAXone INJ 1,000 MG in SODIUM CHLORIDE 0.9% INJ 100 ML IV SCH (21:22)
[2017-12-30] MEDS: POTASSIUM CHLOR 40 MEQ PREMIX 100 ML IV PRN (22:57)
[2017-12-31] VITALS (19 sets, daily range): BP systolic 92–100; BP diastolic 50–59; PULSE 100–126; RESP 16; TEMP 98.2–98.4; O2SAT 92–100
[2017-12-31] MEDS: POTASSIUM CHLOR 40 MEQ PREMIX 100 ML IV PRN (00:42)
[2017-12-31] MEDS: LACTULOSE SYRUP 20 GM/30 ML CUP PO SCH ×4 (02:38→19:50)
[2017-12-31] MEDS: RESP: ALBUTEROL 2.5 MG/IPRATROPIUM 0.5 MG NEB (SCH) INH ×4 (02:59→19:22)
[2017-12-31] MEDS: CHLORHEXIDINE GLUCONATE 2 % 1 PACK (2 CLOTHS) TOP SCH (04:00)
[2017-12-31 04:27] LABS: HEMATOCRIT 29.6 % (39.0-51.0); HEMOGLOBIN 10.1 GM/DL (13.0-17.0); MEAN CORPUSCULAR HEMOGLOBIN 32.5 PG (27.0-34.0); MEAN CORPUSCULAR HGB CONC 34.3 % (32.0-36.0); MEAN PLATELET VOLUME 7.4 FL (7.0-11.0); PLATELET COUNT 26 TH/MM3 (150-450); RED BLOOD COUNT 3.11 MIL/MM3 (4.50-5.90); RED CELL DISTRIBUTION WIDTH 23.4 % (11.6-17.2); WHITE BLOOD COUNT 4.2 TH/MM3 (4.0-11.0)
[2017-12-31 04:40] LABS: INTERNATIONAL NORMALIZED RATIO 1.9 RATIO; PROTHROMBIN TIME - PATIENT 19.6 SEC (9.8-11.6)
--- NOTE | 2017-12-31 05:00 | RADRPT ---
EXAM DATE/TIME: 12/31/2017 03:45 [facility] COMPARISON: CHEST SINGLE AP, December 30, 2017, 3:46. INDICATIONS : Shortness of breath, possible pulmonary disease. MEDICAL HISTORY : Hypertension. Renal calculi. Cirrhosis. Esophageal varices ETOH abuse SURGICAL HISTORY : Paracentesis ENCOUNTER: Subsequent ACUITY: 1 week PAIN SCORE: Non-responsive. LOCATION: Bilateral chest FINDINGS: There is increasing consolidation bilaterally greatest in the lower lobes. Bilateral effusions are jernigan spected. Endotracheal tube tip at the inferior margin of the clavicles. Left jugular line tip overlie s the SVC. Enteric tube courses beneath the diaphragm. Cardiomegaly. Degenerative changes of the spin e. CONCLUSION: Worsening appearance of the chest. Tyler Mahmood MD on December 31, 2017 at 4:58 Board Certified Radiologist. This report was verified electronically.
[2017-12-31 05:09] LABS: ALBUMIN 2.1 GM/DL (3.4-5.0); BICARBONATE 26.8 MEQ/L (21.0-32.0); CALCIUM 7.3 MG/DL (8.5-10.1); CALCIUM-PROTEIN CORRECTED 8.2 MG/DL (8.5-10.1); CREATININE 1.02 MG/DL (0.60-1.30); MAGNESIUM 1.9 MG/DL (1.5-2.5); PHOSPHORUS 3.1 MG/DL (2.5-4.9); TOTAL BILIRUBIN ADULT 6.4 MG/DL (0.2-1.0); TOTAL PROTEIN 5.4 GM/DL (6.4-8.2)
[2017-12-31] MEDS: FREE WATER G-TUBE SCH ×4 (06:00→17:07)
[2017-12-31] MEDS: ARTIFICIAL TEARS OPTH SOLN 15 ML BTL EACH EYE SCH ×3 (06:23→19:50)
[2017-12-31] MEDS: PANTOPRAZOLE INJ 80 MG in SODIUM CHLORIDE 0.9% INJ 100 ML IV SCH (06:26)
[2017-12-31 07:53] LABS: BANDS 35 % (0-6); LYMPHOCYTES 6 % (9-44); METAMYELOCYTES 1 % (0-1); MONOCYTES 4 % (0-8); MYELOCYTES 1 % (0-0); NEUTROPHIL # MANUAL DIFF 3.7 TH/MM3 (1.8-7.7); POLYS (SEG NEUTROPHILS) 52 % (16-70)
[2017-12-31 07:54] LABS: DOHLE BODIES PRESENT (NONE SEEN)
[2017-12-31] MEDS: CHLORHEXIDINE 0.12% (ORAL KIT) 15 ML CUP MT SCH ×2 (08:54→19:52)
[2017-12-31] MEDS: POLYETHYLENE GLYCOL 17 GM PKG NG SCH ×2 (08:54→19:49)
[2017-12-31] MEDS: SODIUM CHLORIDE 0.9% FLUSH 10 ML FLUSH IV FLUSH SCH ×3 (08:54→19:51)
[2017-12-31] MEDS: FUROSEMIDE 40 MG/4 ML VIAL IV PUSH SCH ×2 (08:54→17:08)
[2017-12-31] MEDS: SENNOSIDES SYRUP 8.8 MG/5 ML CUP NG SCH ×2 (08:54→19:49)
[2017-12-31] MEDS: RIFAXIMIN 550 MG TAB PO SCH ×2 (08:54→19:50)
[2017-12-31] MEDS: DOCUSATE SODIUM 100 MG/10 ML UDC PO SCH ×2 (08:54→19:50)
[2017-12-31] MEDS: OCTREOTIDE INJ 500 MCG in SODIUM CHLORID 0.9% 500 ML INJ 499.5 ML IV SCH ×2 (12:44→18:40)
[2017-12-31] MEDS ORDERED: PANTOPRAZOLE INJ 80 MG in SODIUM CHLORIDE 0.9% INJ 100 ML IV SCH (17:00)
[2017-12-31] MEDS: SODIUM CHLORIDE 23.4% INJ 38.5 MEQ in WATER STERILE FOR INJ 1,000 ML IV SCH (17:07)
[2017-12-31] MEDS: THIAMINE INJ 100 MG in SODIUM CHLORIDE 0.9% INJ 100 ML IV SCH (17:07)
--- NOTE | 2017-12-31 19:29 | HHI.CCPN ---
Subjective Remarks/Hospital Course 62 yo male. Date of admission 12/24/2017. Consultation 12/24/2017. Past medical history includes liver cirrhosis with recurrent upper GI bleeding. He was diagnosed 04/11 with liver cirrhosis. He states he quit drinking alcohol that time he was followed at [facility] for liver transplantation evaluation. April 2017, upper GI bleeding - distal Russell's esophagus and grade 1 varices. Stomach no bladder ulcers. Mucosa does not appear edematous duodenum. Status post angiogram of the celiac, SMA revealed no hemorrhagic focus identified. No further bleeding. Patient was again admitted 08/13 for upper GI bleed. EGD revealed grade 1-2 septal varices in no active bleeding. Gastric varices in the fundus just 2 cm GE junction actively squirting blood. Banding not possible so injected with 6 cc of epinephrine to stop the bleeding. Large clots and stomach. Remain intubated on octreotide and Protonix drips. Recommended if continued bleeding need to consider for TIPS. Most recently was admitted December 11, 2017 with alcohol toxicity. His has recently and he has drinking alcohol again. His alcohol levels currently 234. He presented today with upper GI bleeding. He is noted to be pancytopenic in with a white blood cell count of 3.8. Hemoglobin 7.1 and platelets of 30. INR is 1.9. AST is elevated. Alcohol level is 234. Patient received 6 L normal saline was started on a Protonix and octreotide drip. He remained hypotensive and peripheral vasopressors were started. Metal Engraver was consulted along with GI. Due to the upper GI bleed decision was made to secure the airway with oral tracheal intubation and placement of central line to receive rapid transfusion. I discussed this with daughter Fabi Ndiaye [phone] and she is in agreement with aggressive plans at the present time. I described to her d- dimer nature of his current clinical situation and she wished to be made aware of any medical decisions that need to be made. Michelle did make her the healthcare proxy at this time. 12/25: Transfused 6 PRBCs, 2 FFP and 2 platelets overnight. Currently norepinephrine at 5 mcg/m and vasopressin 0.04 units per minute. Afebrile. Arousable on the ventilator. We'll transfuse FFP, cryoprecipitate and platelets again this AM 12/26 Patient remains intubated and sedation . On Octreotide and Protonix drips. In addition he is on Levopehd 1 saul and Vasopressin0.04. NGT ahd approx 200ml coffee ground gastric output, 12/27: No further bleeding noted. INR currently 1.7. Platelets to 28K. family to arrive late . Possibly transition to comfort care Monday, however request aggressive cares in the interim short of CPR. 12/28: Status post EGD today. Possible brief episode of esophageal varices resolved. Portal gastropathy noted. Hemoglobin stable. Remains intubated. 12/29: Remains intubated. No active bleeding. Hemoglobin stable. Will diurese today. Positive since admission. No bowel movement Subjective 12/30: Minimal diuresis overnight. Hemoglobin remained stable. No bowel movement. Ordered magnesium citrate per GI. Increasing bowel regimen from my standpoint. Diuresed with furosemide 40 mg IV twice a day. 12/31: Patient noted to be deeply sedated this a.m. Fentanyl infusion placed on hold. Hypernatremia slightly resolved, all IV infusions base changed to D5W instead of normal saline. INR noted to be elevated, 1.9 no active signs of bleeding will monitor possible transfusion of FFP. Noted chest x-ray is worsening now patient with pleural effusions will continue the Lasix. Free water flushes have been decreased. Objective Vital Signs Date Time Temp Pulse Resp B/P (MAP) Pulse Ox O2 Delivery O2 Flow Rate FiO2 12/31/17 18:00 126 12/31/17 16:00 45 12/31/17 16:00 98.2 93/54 (67) 92 12/31/17 12:00 16 12/30/17 07:00 Mechanical Ventilator Intake and Output 12/31/17 12/31/17 01/01/18 08:00 16:00 00:00 Intake Total 500 ml 2211 ml Output Total 1450 ml 1100 ml Balance -950 ml 1111 ml Result Diagram: 12/31/17 0400 12/31/17 0700 Imaging Last Impressions Chest X-Ray 12/29/17 06 Signed Impressions: Service Date/Time: Friday, December 29, 2017 03:52 - CONCLUSION: No significant change has occurred. Tyler Mahmood MD Abdomen X-Ray 12/29/17 06 Signed Impressions: Service Date/Time: Friday, December 29, 2017 03:54 - CONCLUSION: Decreased bowel distention. Tyler Mahmood MD Liver Ultrasound 12/25/17 0000 Signed Impressions: Service Date/Time: Monday, December 25, 2017 09:17 - CONCLUSION: 1. Cirrhotic appearing liver with mild splenomegaly consistent with portal hypertension. The portal vein is patent with hepatopedal flow. 2. Gallbladder wall thickening with small amount of sludge and dominant gallstone. These findings are typically seen in patient's with chronic liver condition. 3. Incidental note of small bilateral pleural effusions. Jorge Roche MD Objective Remarks GENERAL: 62 -year-old male currently orotracheally intubated and sedated SKIN: Warm and dry. No rash HEAD: Atraumatic. Normocephalic. EYES: Pupils equal and round about 3 mm bilaterally and reactive. + scleral icterus. No injection or drainage. ENT: Blood from oral mucosa during intubation notice. Positive petechiae. NECK: Trachea midline. No JVD. CARDIOVASCULAR: Regular rate and rhythm. S1, S2. No S4. RESPIRATORY: No accessory muscle use. Clear to auscultation. Breath sounds equal bilaterally. GASTROINTESTINAL: Abdomen slightly taut, nontender. Hypoactive bowel sounds are appreciated. MUSCULOSKELETAL: Extremities with trace lower extremity edema. No obvious deformities. NEUROLOGICAL: RASS -3. All sedation placed on hold for approximately 12 hours patient currently only withdraws to pain, . Previously, motor grossly within normal limits. Five out of 5 muscle strength in the arms and legs. Normal speech prior to intubation 12/24. Date of Insertion: Dec 24, 2017 Line: Central Venous Catheter Side: Left Location: Internal, Jugular A/P Assessment and Plan Neuro/Psych: EtOH intoxication Toxic metabolic encephalopathy secondary to elevated ammonia Currently on fentanyl discontinued/propofol drip at 35 mcg/kg per minute for sedation/analgesia while intubated, currently placed on hold for reevaluation of neurological status> 12 hours Goal of RASS -2 Daily sedation vacation Ofirmev 1 g IV every 8 hours when necessary fever Upon admission ,EtOH level was 234. on vitamin bag daily for 3 days and switch to thiamine 100 mg IV daily on 12/27 Ammonia level in a.m. was 128-> 68 Recheck in a.m.. Continue rifaximin CV: 2/3 Currently off all vasopressors. On 11/30 NSS at 42 cc an hour Goal keep mean arterial pressure greater than equal to 65 1 dose of furosemide today 40 mg IV 1.Placed on 40 mg IV twice a day in attempt to diurese Resp: Acute hypoxemic respiratory failure History of loculated right pleural effusion status post right chest tube/Pleurx catheter [facility] /12/01/44 Ventilator bundle Albuterol/ipratropium aerosols every 6 hours with albuterol aerosols every 2 hours. Dyspnea Maintain head of bed at 30 12/31 CXR: Pleural effusions, chest x-ray worsening GI: Recurrent upper GI bleeding - negative gastroduodenal artery evaluation 05/13 History of esophageal varices - grade 1-2. Most recently epinephrine injected Portal gastropathy Portal hypertension Splenomegaly EtOH cirrhosis History of Alicia-Dyson tear History of Russell's esophagus Hyperammonia Hypoalbuminemia Elevated total bilirubin Currently NPO On pantoprazole drip at 8 mg an hour and Sandostatin drip at 25 g an hour ceftriaxone 1 g daily for upper GI bleed GI following Dr. Marie. s/p EGD: Probable gastric varices, portal gastropathy and Russell;s esophagus Continue lactulose 30 cc Q6 and Xifaxan 550 mill grams twice a day for elevated ammonia level. Follow-up ammonia level 180 12/26. Recheck 12/28 102.. 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 Hernandez and Narcisa for intermittent transfusions and Neupogen injections during prior hospitalizations Haptoglobin slightly low at 29. LDH normal. ID: Monitor for infection On ceftriaxone for upper GI bleed MSK: PT evaluate and treat FEN Hypernatremia Electrolyte derangement Replace electrolytes per ICU electrolyte protocol Decrease free water 100 every 6 hours and 11/30 NSS 42 cc an hour Access - Left IJ CVL day #8 place 12/24 Prophylaxis - GI - pantoprazole drip/octreotide drip - DVT - SCD/pharmacological prophylaxis contraindicated with upper GI bleed Palliative care is following Dispo: Discussed with daughter at bedside ,plan for scheduled meeting with palliative care in am. Critical Care: my billing statement This patient remains critically ill with one or more organ systems which are or may become a threat to life. I have spent in excess of 30 minutes discontinuously in the care and management of this patient. This time is exclusive of procedures, and includes, but is not limited to, evaluation of the patient, review of the medical record, discussions with family, consultants, nursing staff, or respiratory therapy, and documentation in the medical record. Physician Delilah Solis MD Dec 31, 2017 19:29
[2017-12-31] MEDS: cefTRIAXone INJ 1,000 MG in SODIUM CHLORIDE 0.9% INJ 100 ML IV SCH (19:52)
[2017-12-31] MEDS ORDERED: CALCIUM GLUCONATE INJ 2 GM in DEXTROSE 5% IN WATER 100ML INJ 100 ML IV ONE ×2 (20:00)
[2018-01-01] VITALS (30 sets, daily range): BP systolic 83–129; BP diastolic 43–62; PULSE 100–165; RESP 16–18; TEMP 97.4–99.5; O2SAT 87–97
[2018-01-01] MEDS: RESP: ALBUTEROL 2.5 MG/IPRATROPIUM 0.5 MG NEB (SCH) INH ×4 (03:05→19:37)
[2018-01-01] MEDS: CHLORHEXIDINE GLUCONATE 2 % 1 PACK (2 CLOTHS) TOP SCH (04:00)
[2018-01-01] MEDS: LACTULOSE SYRUP 20 GM/30 ML CUP PO SCH ×4 (04:06→20:02)
[2018-01-01] MEDS: PANTOPRAZOLE IV SCH ×4 (04:06→15:16)
[2018-01-01] MEDS: WATER IV SCH ×4 (04:06→15:16)
[2018-01-01] MEDS: DEXTROSE 5% IV SCH ×4 (04:06→15:16)
[2018-01-01] MEDS: ARTIFICIAL TEARS OPTH SOLN 15 ML BTL EACH EYE SCH ×3 (04:07→22:00)
[2018-01-01] MEDS: FREE WATER G-TUBE SCH ×4 (04:07→17:46)
--- NOTE | 2018-01-01 04:09 | RADRPT ---
EXAM DATE/TIME: 01/01/2018 03:28 [facility] COMPARISON: CHEST SINGLE AP, December 31, 2017, 3:45. INDICATIONS : Shortness of breath, possible pulmonary disease. MEDICAL HISTORY : Hypertension. Renal calculi. Cirrhosis. Esophageal varices ETOH abuse SURGICAL HISTORY : Paracentesis ENCOUNTER: Subsequent ACUITY: 1 week PAIN SCORE: Non-responsive. LOCATION: Bilateral chest FINDINGS: Portable AP view of the chest demonstrates a normal-sized cardiac silhouette. ETT, NG tube, and left internal jugular central line remain present. Multiple EKG lines overlie the patient. There are bibas ilar pleural-parenchymal opacities with bilateral mid and lower lung zone airspace consolidation. No pneumothorax is visualized. CONCLUSION: Stable chest x-ray with bilateral airspace consolidation in the mid and lower lung zones with bilater al pleural effusions. Carlos Morales MD on January 01, 2018 at 4:06 Board Certified Radiologist. This report was verified electronically.
[2018-01-01 04:46] LABS: INTERNATIONAL NORMALIZED RATIO 2.1 RATIO; PROTHROMBIN TIME - PATIENT 21.4 SEC (9.8-11.6)
[2018-01-01 04:48] LABS: AUTOMATED NEUTROPHIL # 3.8 TH/MM3 (1.8-7.7); BASOPHIL % 0.5 % (0.0-2.0); EOSINOPHIL # 0.1 TH/MM3 (0-0.4); EOSINOPHIL % 1.7 % (0.0-4.0); HEMATOCRIT 29.2 % (39.0-51.0); LYMPHOCYTE # 0.4 TH/MM3 (1.0-4.8); MEAN CELL VOLUME 94.5 FL (80.0-100.0); MEAN CORPUSCULAR HEMOGLOBIN 32.5 PG (27.0-34.0); MEAN CORPUSCULAR HGB CONC 34.4 % (32.0-36.0); MEAN PLATELET VOLUME 7.8 FL (7.0-11.0); MONO % 8.3 % (0.0-8.0); MONOCYTE # 0.4 TH/MM3 (0-0.9); NEUT % 80.5 % (16.0-70.0); PLATELET COUNT 24 TH/MM3 (150-450); RED BLOOD COUNT 3.09 MIL/MM3 (4.50-5.90); RED CELL DISTRIBUTION WIDTH 24.3 % (11.6-17.2); WHITE BLOOD COUNT 4.7 TH/MM3 (4.0-11.0)
[2018-01-01 05:06] LABS: ALBUMIN 1.9 GM/DL (3.4-5.0); AST (GOT) 58 U/L (15-37); BICARBONATE 28.2 MEQ/L (21.0-32.0); BLOOD UREA NITROGEN 19 MG/DL (7-18); CALCIUM 8.1 MG/DL (8.5-10.1); CHLORIDE 114 MEQ/L (98-107); CREATININE 0.99 MG/DL (0.60-1.30); GLOMERULAR FILTRATION RATE 77 ML/MIN (>89); GLUCOSE,RANDOM 109 MG/DL (74-106); MAGNESIUM 2.1 MG/DL (1.5-2.5); SODIUM (NA) 149 MEQ/L (136-145)
[2018-01-01 05:08] LABS: ALT (GPT) 30 U/L (12-78); PHOSPHORUS 2.6 MG/DL (2.5-4.9)
[2018-01-01 05:09] LABS: ALKALINE PHOSPHATASE 85 U/L (45-117); TOTAL BILIRUBIN ADULT 6.6 MG/DL (0.2-1.0); TOTAL PROTEIN 5.1 GM/DL (6.4-8.2)
[2018-01-01 07:45] LABS: BANDS 52 % (0-6); LYMPHOCYTES 3 % (9-44); MONOCYTES 2 % (0-8); NEUTROPHIL # MANUAL DIFF 4.4 TH/MM3 (1.8-7.7); POLYS (SEG NEUTROPHILS) 42 % (16-70)
[2018-01-01 07:46] LABS: DOHLE BODIES PRESENT (NONE SEEN)
[2018-01-01 07:49] LABS: KERATOCYTES OCC (NORMAL); OVALOCYTES 1+ (NORMAL)
[2018-01-01] MEDS: POLYETHYLENE GLYCOL 17 GM PKG NG SCH ×2 (09:01→20:02)
[2018-01-01] MEDS: DOCUSATE SODIUM 100 MG/10 ML UDC PO SCH ×2 (09:01→20:02)
[2018-01-01] MEDS: SENNOSIDES SYRUP 8.8 MG/5 ML CUP NG SCH ×2 (09:01→20:02)
[2018-01-01] MEDS: RIFAXIMIN 550 MG TAB PO SCH ×2 (09:02→20:02)
[2018-01-01] MEDS: FUROSEMIDE 40 MG/4 ML VIAL IV PUSH SCH ×2 (09:02→17:46)
[2018-01-01] MEDS: CHLORHEXIDINE 0.12% (ORAL KIT) 15 ML CUP MT SCH ×2 (09:04→20:02)
[2018-01-01] MEDS: SODIUM CHLORIDE 0.9% FLUSH 10 ML FLUSH IV FLUSH SCH ×3 (09:05→20:02)
--- NOTE | 2018-01-01 15:18 | HHI.CCPN ---
Subjective Remarks/Hospital Course 62 yo male. Date of admission 12/24/2017. Consultation 12/24/2017. Past medical history includes liver cirrhosis with recurrent upper GI bleeding. He was diagnosed 04/11 with liver cirrhosis. He states he quit drinking alcohol that time he was followed at [facility] for liver transplantation evaluation. April 2017, upper GI bleeding - distal Russell's esophagus and grade 1 varices. Stomach no bladder ulcers. Mucosa does not appear edematous duodenum. Status post angiogram of the celiac, SMA revealed no hemorrhagic focus identified. No further bleeding. Patient was again admitted 08/13 for upper GI bleed. EGD revealed grade 1-2 septal varices in no active bleeding. Gastric varices in the fundus just 2 cm GE junction actively squirting blood. Banding not possible so injected with 6 cc of epinephrine to stop the bleeding. Large clots and stomach. Remain intubated on octreotide and Protonix drips. Recommended if continued bleeding need to consider for TIPS. Most recently was admitted December 11, 2017 with alcohol toxicity. His has recently and he has drinking alcohol again. His alcohol levels currently 234. He presented today with upper GI bleeding. He is noted to be pancytopenic in with a white blood cell count of 3.8. Hemoglobin 7.1 and platelets of 30. INR is 1.9. AST is elevated. Alcohol level is 234. Patient received 6 L normal saline was started on a Protonix and octreotide drip. He remained hypotensive and peripheral vasopressors were started. Dip Tube Assembler Machine was consulted along with GI. Due to the upper GI bleed decision was made to secure the airway with oral tracheal intubation and placement of central line to receive rapid transfusion. I discussed this with daughter Fabi Ndiaye [phone] and she is in agreement with aggressive plans at the present time. I described to her d- dimer nature of his current clinical situation and she wished to be made aware of any medical decisions that need to be made. Michelle did make her the healthcare proxy at this time. 12/25: Transfused 6 PRBCs, 2 FFP and 2 platelets overnight. Currently norepinephrine at 5 mcg/m and vasopressin 0.04 units per minute. Afebrile. Arousable on the ventilator. We'll transfuse FFP, cryoprecipitate and platelets again this AM 12/26 Patient remains intubated and sedation . On Octreotide and Protonix drips. In addition he is on Levopehd 1 saul and Vasopressin0.04. NGT ahd approx 200ml coffee ground gastric output, 12/27: No further bleeding noted. INR currently 1.7. Platelets to 28K. family to arrive late . Possibly transition to comfort care Monday, however request aggressive cares in the interim short of CPR. 12/28: Status post EGD today. Possible brief episode of esophageal varices resolved. Portal gastropathy noted. Hemoglobin stable. Remains intubated. 12/29: Remains intubated. No active bleeding. Hemoglobin stable. Will diurese today. Positive since admission. No bowel movement Subjective 12/30: Minimal diuresis overnight. Hemoglobin remained stable. No bowel movement. Ordered magnesium citrate per GI. Increasing bowel regimen from my standpoint. Diuresed with furosemide 40 mg IV twice a day. 12/31: Patient noted to be deeply sedated this a.m. Fentanyl infusion placed on hold. Hypernatremia slightly resolved, all IV infusions base changed to D5W instead of normal saline. INR noted to be elevated, 1.9 no active signs of bleeding will monitor possible transfusion of FFP. Noted chest x-ray is worsening now patient with pleural effusions will continue the Lasix. Free water flushes have been decreased. 01/01: Currently encephalopathic, patient off sedation greater than 24 hours. Patient remains on octreotide and Protonix infusions at this time per GI. Discussion with palliative care and patient's daughter decision to continue aggressive care and terms short of CPR to be continued .INR 2.1 continues to be elevated 2.1 this a.m. 1 unit FFP to be transfused. Platelet count 24,000, patient to receive 1 unit of platelets. No active signs of bleeding. Bands increasing blood cultures obtained. Objective Vital Signs Date Time Temp Pulse Resp B/P (MAP) Pulse Ox O2 Delivery O2 Flow Rate FiO2 01/01/18 11:35 94 65 01/01/18 10:00 110 01/01/18 08:00 98.5 17 129/62 (84) 12/30/17 07:00 Mechanical Ventilator Intake and Output 01/01/18 01/01/18 01/02/18 08:00 16:00 00:00 Intake Total 400 ml Output Total 1800 ml Balance -1400 ml Result Diagram: 01/01/18 0415 01/01/18 0415 Imaging Last Impressions Chest X-Ray 12/29/17599 Signed Impressions: Service Date/Time: Friday, December 29, 2017 03:52 - CONCLUSION: No significant change has occurred. Tyler Mahmood MD Abdomen X-Ray 12/29/17599 Signed Impressions: Service Date/Time: Friday, December 29, 2017 03:54 - CONCLUSION: Decreased bowel distention. Tyler Mahmood MD Liver Ultrasound 12/25/17 0000 Signed Impressions: Service Date/Time: Monday, December 25, 2017 09:17 - CONCLUSION: 1. Cirrhotic appearing liver with mild splenomegaly consistent with portal hypertension. The portal vein is patent with hepatopedal flow. 2. Gallbladder wall thickening with small amount of sludge and dominant gallstone. These findings are typically seen in patient's with chronic liver condition. 3. Incidental note of small bilateral pleural effusions. Jorge Roche MD Objective Remarks GENERAL: 62 -year-old male currently orotracheally intubated , currently on no sedation, unresponsive SKIN: Warm and dry. No rash HEAD: Atraumatic. Normocephalic. EYES: Pupils equal and round about 3 mm bilaterally and reactive. + scleral icterus. No injection or drainage. ENT: Blood from oral mucosa during intubation notice. Positive petechiae. NECK: Trachea midline. No JVD. CARDIOVASCULAR: Regular rate and rhythm. S1, S2. No S4. RESPIRATORY: No accessory muscle use. Clear to auscultation. Breath sounds equal bilaterally. GASTROINTESTINAL: Abdomen slightly taut, nontender. Hypoactive bowel sounds are appreciated. MUSCULOSKELETAL: Extremities with 2+ B/L upper and lower extremity edema. No obvious deformities. NEUROLOGICAL: RASS -3. All sedation placed on hold for approximately 24 hours patient currently only withdraws to pain, . Previously, motor grossly within normal limits. Five out of 5 muscle strength in the arms and legs. Normal speech prior to intubation 12/24. Date of Insertion: Dec 24, 2017 Line: Central Venous Catheter Side: Left Location: Internal, Jugular A/P Assessment and Plan Neuro/Psych: EtOH intoxication Toxic metabolic encephalopathy secondary to elevated ammonia Currently on fentanyl /propofol discontinued 2 in the afternoon, for sedation /analgesia while intubated, currently placed on hold for reevaluation of neurological status> 12 hours Goal of RASS -2 Daily sedation vacation Ofirmev 1 g IV every 8 hours when necessary fever Upon admission ,EtOH level was 234. on vitamin bag daily for 3 days and switch to thiamine 100 mg IV daily on 12/27 Ammonia level was 128-> 68->17 today Continue rifaximin Continue neurochecks per ICU protocol. Patient nonresponsive post discontinuation of all sedation on 12/31 CV: 2/ Currently off all vasopressors. On 11/30 NSS at 42 cc an hour Goal keep mean arterial pressure greater than equal to 65 Placed on 40 mg IV twice a day in attempt to diurese Resp: Acute hypoxemic respiratory failure History of loculated right pleural effusion status post right chest tube/Pleurx catheter PRVC /12/01/44 Ventilator bundle Albuterol/ipratropium aerosols every 6 hours with albuterol aerosols every 2 hours. Dyspnea Maintain head of bed at 30 01/01 CXR: Pleural effusions, chest x-ray unchanged GI: Recurrent upper GI bleeding - negative gastroduodenal artery evaluation 05/13 History of esophageal varices - grade 1-2. Most recently epinephrine injected Portal gastropathy Portal hypertension Splenomegaly EtOH cirrhosis History of Alicia-Dyson tear History of Russell's esophagus Hyperammonia Hypoalbuminemia Elevated total bilirubin Currently NPO On pantoprazole drip at 8 mg an hour and Sandostatin drip at 25 g an hour ceftriaxone 1 g daily for upper GI bleed GI following Dr. Marie. s/p EGD: Probable gastric varices, portal gastropathy and Russell;s esophagus Continue lactulose 30 cc Q6 and Xifaxan 550 mill grams twice a day for elevated ammonia level. 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 Hernandez and Narcisa for intermittent transfusions and Neupogen injections during prior hospitalizations Haptoglobin slightly low at 29. LDH normal. 01/01 FFP 1 unit, 1 unit of platelets to be transfused ID: Monitor for infection On ceftriaxone for upper GI bleed 01/01-obtain blood and sputum culture MSK: PT evaluate and treat FEN Hypernatremia Electrolyte derangement Replace electrolytes per ICU electrolyte protocol Decrease free water 100 every 6 hours and 11/30 NSS 42 cc an hour Sodium level downtrending Access - Left IJ CVL day #9 place 12/24 Prophylaxis - GI - pantoprazole drip/octreotide drip - DVT - SCD/pharmacological prophylaxis contraindicated with upper GI bleed Palliative care is following-meeting held on palliative care note. Plan currently is to continue aggressive measures short of CPR Dispo: Discussed with RETIREMENT ASSISTANT at bedside. I telephoned patient's daughter, Fabi Ndiaye unable to contact, did not answer Critical Care: my billing statement This patient remains critically ill with one or more organ systems which are or may become a threat to life. I have spent in excess of 33 minutes discontinuously in the care and management of this patient. This time is exclusive of procedures, and includes, but is not limited to, evaluation of the patient, review of the medical record, discussions with family, consultants, nursing staff, or respiratory therapy, and documentation in the medical record. Physician Delilha Moreno,Delilah Lindo MD Jan 01, 2018 15:18
[2018-01-01 16:22] LABS: BILIRUBIN, URINE SMALL (NEG); BLOOD, URINE MOD (NEG); GLUCOSE,URINE NEG (NEG); HYALINE CAST, URINE 25 /lpf (RARE); KETONE, URINE NEG (NEG); MUCUS URINE FEW /lpf (OCC); NITRITE,URINE NEG (NEG); SQUAMOUS EPITHELIAL CELL URINE <1 /hpf (0-5); URINE COLOR DARK-YELLOW (YELLW/STRAW); URINE LEUKOCYTE ESTERASE NEG (NEG)
[2018-01-01] MEDS: SODIUM CHLORIDE 23.4% INJ 38.5 MEQ in WATER STERILE FOR INJ 1,000 ML IV SCH ×2 (17:53→19:00)
[2018-01-01] MEDS ORDERED: WATER IV SCH ×2 (18:00)
[2018-01-01] MEDS ORDERED: THIAMINE IV SCH ×2 (18:00)
[2018-01-01] MEDS ORDERED: DEXTROSE 5% IV SCH ×2 (18:00)
--- NOTE | 2018-01-01 19:26 | HHI.HCPN ---
Reason for visit a. To assist with evaluation and management of symptoms including: Encephalopathy, depression b. To assist medical decision maker(s) with: better understanding of current medical conditions; weighing benefits/burdens of medical treatment options; making medical treatment decisions. Subjective/Interval History Seen today to follow-up on goals and management. Sedation stopped 12/31 at 8 AM. Patient did not consistently follow commands. Will intermittently squeeze hands, remains lethargic. Vital signs blood pressure 103/56, heart rate 117, respiratory rate 18, oxygen saturation 95% on 65% FiO2, T-MAX 99.5. Vent settings PRVC/AC 16/500/65%/5. Laboratory values showed WBC 4.7, hemoglobin 10.0, hematocrit 29.2, platelets 24, sodium 149, potassium 3.5, BUN 19, creatinine 0.99, calcium 8.1, total bilirubin 6.6, magnesium 2.1, ammonia 17. Prothrombin time remains elevated at 21.4 and INR at 2.1. Of note, he is not on Coumadin. Blood and sputum cultures were drawn 01/01 and are pending. During hospitalization he has received 7 units of packed red blood cells, 5 units of fresh frozen plasma, 6 units of platelets and 1 unit of cryoprecipitate. Chest x-ray shows bilateral airspace consolidation in the mid and lower lung zones bilateral pleural effusions. Family is at bedside and unable to elicit any consistent response from patient to squeeze hands, open eyes or interact. Ammonia level has now normalized on Xifaxan and lactulose. Family is requesting a palliative care consultation to evaluate patient overall progress to determine future course. . Family/friend interactions Family meeting was held to include his daughter and healthcare surrogate, Fabi , 2 sisters, 1 brother and 1 brother in law. Clinical data was reviewed, patient's clinical course from previous admissions to now evaluated and options discussed. Liver transplant options were discussed and prior attempts establish patient on transplant list were reviewed in detail. Consistent decline in patient's liver function to include escalating INR and ammonia levels. Possible etiologies of encephalopathy were discussed to include previously administered sedations, metabolic causes and elevated ammonia. Patient's brothers and sisters are aware that his liver disease is end stage and that his quality of life, should he be able to be medically extubated, would likely remain poor and inconsistent the patient's wishes. His daughter, Fabi continues to struggle with the diagnosis and prognosis. The family wishes to continue current care to include attempted awakening and weaning if possible from the ventilator until such time as the tracheostomy and PEG tube placement decision is imminent, at which time they will decide which course to take. Patient's brothers and sisters are leaning towards compassionate withdrawal. Family has been encouraged to visit a hospice care center will evaluate that possibility as well. . Advance Directives Living Will: Copy in medical record Health Care Surrogate: Copy in medical record (reportedly, recently changed to assign his daughter, Fabi as his primary HCS and Rebekah Mendoza as his alternate. Trying to locate paperwork, completed at [employer] within last 1-2 weeks. ) Durable Power of Manager Library: Copy in medical record Advance Directive Specifics Date completed: 04/22/06 Health Care Surrogate(s): By the telephone consent received from Melina Ndiaye and Emely Ndiaye, the patient's 2 younger daughters, they have ceded the decision making to their sister, Fabi, which is consistent with the wishes of the patient expressed by Rebekah Mendoza, the patient's DPOA and longtime caregiver, that the patient's most recent wish was that Fabi be the primary healthcare surrogate and Rebekah serve as the alternate. At this time the wheeze and agrees to serve as health care surrogate and is in contact with both of her sisters and Rebekah to assure that the patient's wishes, as he has expressed them to his friends and family, are honored. . Documented care wishes: Patient has completed a living will stating that in case he has a terminal, end- stage condition or a persistent vegetative state that he be allowed to without life-prolonging procedures, be given medication to alleviate pain and enhance comfort, not to be kept alive by ventilator's or other artificial life support nor to be tube fed or artificially hydrated to sustain life. . Objective Vital Signs Date Time Temp Pulse Resp B/P (MAP) Pulse Ox O2 Delivery O2 Flow Rate FiO2 01/01/18 18:00 117 01/01/18 16:43 98.5 114 18 103/56 95 01/01/18 16:22 99.5 115 17 109/56 93 01/01/18 16:00 113 01/01/18 16:00 97.4 113 18 115/58 (77) 94 01/01/18 16:00 65 01/01/18 15:53 96 65 01/01/18 14:00 105 01/01/18 12:00 65 01/01/18 12:00 104 01/01/18 12:00 98.8 104 17 97/52 (67) 92 01/01/18 11:35 94 65 01/01/18 10:00 110 01/01/18 08:00 65 01/01/18 08:00 119 01/01/18 08:00 98.5 119 17 129/62 (84) 94 01/01/18 07:53 96 65 01/01/18 06:00 104 01/01/18 04:00 94 65 01/01/18 04:00 98.4 104 102/57 (72) 93 01/01/18 04:00 104 01/01/18 04:00 45 01/01/18 02:00 101 01/01/18 01:37 93 55 01/01/18 00:00 100 01/01/18 00:00 45 01/01/18 00:00 98.9 100 16 91/50 (64) 93 12/31/17 23:15 93 55 12/31/17 22:35 92 45 12/31/17 22:00 100 12/31/17 22:00 98.4 103 92/50 (64) 93 12/31/17 22:00 45 12/31/17 19:22 93 45 Intake & Output 01/01/18 01/01/18 07:00 19:00 Intake Total 500 ml 1976 ml Output Total 1800 ml 1450 ml Balance -1300 ml 526 ml Intake IV Total 300 ml 1393 ml Platelets 193 ml Blood Product IV Normal Saline Flush 10 ml Tube Irrigant 180 ml Other 200 ml 200 ml Output Urine Total 1100 ml 1450 ml Stool Total 0 ml Gastric Drainage Total 700 ml # Bowel Movements 0 0 Physical Exam CONSTITUTIONAL/GENERAL: This is an adequately nourished patient, in no apparent distress. TUBES/LINES/DRAINS: Left IJ CVL, ETT, NGT, Mcdonald EYES: Pupils equal and round and reactive. No scleral icterus. No injection or drainage. Fundi not examined. CARDIOVASCULAR: Tachycardic rate and regular rhythm without murmurs, gallops, or rubs. No JVD. Peripheral pulses symmetric. RESPIRATORY/CHEST: Symmetric, unlabored respirations. Clear to auscultation. Breath sounds equal bilaterally. No wheezes, rales, or rhonchi. GASTROINTESTINAL: Abdomen soft, nontender, hypoactive bowel sounds. GENITOURINARY: Without palpable bladder distension. Mcdonald catheter in place. MUSCULOSKELETAL: Extremities without clubbing, cyanosis, or edema. No mottling or clubbing. NEUROLOGICAL: Intubated, lethargic, off sedation over 24 hours, not consistently responding. PSYCHIATRIC: Encephalopathic Diagnostic Tests Laboratory Laboratory Tests Test 12/30/17 05:00 12/30/17 20:50 12/31/17 04:00 12/31/17 07:00 White Blood Count 1.9 TH/MM3 (4.0-11.0) 4.2 TH/MM3 (4.0-11.0) Red Blood Count 3.08 MIL/MM3 (4.50-5.90) 3.11 MIL/MM3 (4.50-5.90) Hemoglobin 9.9 GM/DL (13.0-17.0) 10.1 GM/DL (13.0-17.0) Hematocrit 29.3 % (39.0-51.0) 29.6 % (39.0-51.0) Mean Corpuscular Volume 94.9 FL (80.0-100.0) 95.0 FL (80.0-100.0) Mean Corpuscular Hemoglobin 32.1 PG (27.0-34.0) 32.5 PG (27.0-34.0) Mean Corpuscular Hemoglobin Concent 33.8 % (32.0-36.0) 34.3 % (32.0-36.0) Red Cell Distribution Width 22.5 % (11.6-17.2) 23.4 % (11.6-17.2) Platelet Count 35 TH/MM3 (150-450) 26 TH/MM3 (150-450) Mean Platelet Volume 7.6 FL (7.0-11.0) 7.4 FL (7.0-11.0) Neutrophils (%) (Auto) 65.9 % (16.0-70.0) Lymphocytes (%) (Auto) 12.0 % (9.0-44.0) Monocytes (%) (Auto) 17.2 % (0.0-8.0) Eosinophils (%) (Auto) 4.0 % (0.0-4.0) Basophils (%) (Auto) 0.9 % (0.0-2.0) Neutrophils # (Auto) 1.3 TH/MM3 (1.8-7.7) Lymphocytes # (Auto) 0.2 TH/MM3 (1.0-4.8) Monocytes # (Auto) 0.3 TH/MM3 (0-0.9) Eosinophils # (Auto) 0.1 TH/MM3 (0-0.4) Basophils # (Auto) 0.0 TH/MM3 (0-0.2) CBC Comment AUTO DIFF AUTO DIFF Differential Total Cells Counted 100 100 Neutrophils % (Manual) 45 % (16-70) 52 % (16-70) Band Neutrophils % 34 % (0-6) 35 % (0-6) Lymphocytes % 10 % (9-44) 6 % (9-44) Monocytes % 7 % (0-8) 4 % (0-8) Eosinophils % 4 % (0-4) 1 % (0-4) Neutrophils # (Manual) 1.5 TH/MM3 (1.8-7.7) 3.7 TH/MM3 (1.8-7.7) Differential Comment FINAL DIFF MANUAL FINAL DIFF MANUAL Platelet Estimate LOW (NORMAL) LOW (NORMAL) Platelet Morphology Comment NORMAL (NORMAL) NORMAL (NORMAL) Tear Drop Cells 1+ (NORMAL) Ovalocytes 1+ (NORMAL) Keratocytes 1+ (NORMAL) Blood Urea Nitrogen 11 MG/DL (7-18) 13 MG/DL (7-18) Creatinine 0.85 MG/DL (0.60-1.30) 1.02 MG/DL (0.60-1.30) Random Glucose 89 MG/DL (74-106) 115 MG/DL (74-106) Total Protein 5.3 GM/DL (6.4-8.2) 5.4 GM/DL (6.4-8.2) Albumin 2.2 GM/DL (3.4-5.0) 2.1 GM/DL (3.4-5.0) Calcium Level 7.4 MG/DL (8.5-10.1) 7.3 MG/DL (8.5-10.1) Phosphorus Level 2.3 MG/DL (2.5-4.9) 3.1 MG/DL (2.5-4.9) Magnesium Level 1.9 MG/DL (1.5-2.5) 1.9 MG/DL (1.5-2.5) Alkaline Phosphatase 92 U/L (45-117) 89 U/L (45-117) Aspartate Amino Transf (AST/SGOT) 57 U/L (15-37) 47 U/L (15-37) Alanine Aminotransferase (ALT/SGPT) 38 U/L (12-78) 35 U/L (12-78) Total Bilirubin 5.7 MG/DL (0.2-1.0) 6.4 MG/DL (0.2-1.0) Sodium Level 152 MEQ/L (136-145) 150 MEQ/L (136-145) Potassium Level 3.8 MEQ/L (3.5-5.1) 3.1 MEQ/L (3.5-5.1) 4.2 MEQ/L (3.5-5.1) 4.2 MEQ/L (3.5-5.1) Chloride Level 118 MEQ/L (98-107) 117 MEQ/L (98-107) Carbon Dioxide Level 26.6 MEQ/L (21.0-32.0) 26.8 MEQ/L (21.0-32.0) Anion Gap 7 MEQ/L (5-15) 6 MEQ/L (5-15) Estimat Glomerular Filtration Rate 91 ML/MIN (>89) 74 ML/MIN (>89) Protein Corrected Calcium 8.4 MG/DL (8.5-10.1) 8.2 MG/DL (8.5-10.1) Ammonia 123 MCMOL/L (11-32) 67 MCMOL/L (11-32) Total Creatine Kinase 141 U/L (39-308) 155 U/L (39-308) Metamyelocytes 1 % (0-1) Myelocytes 1 % (0-0) Dohle Bodies PRESENT (NONE SEEN) Prothrombin Time 19.6 SEC (9.8-11.6) Prothromb Time International Ratio 1.9 RATIO Activated Partial Thromboplast Time 36.3 SEC (24.3-30.1) Fibrinogen 248 mg/dL (227-377) Lipase 59 U/L (73-393) Test 01/01/18 04:15 01/01/18 15:37 White Blood Count 4.7 TH/MM3 (4.0-11.0) Red Blood Count 3.09 MIL/MM3 (4.50-5.90) Hemoglobin 10.0 GM/DL (13.0-17.0) Hematocrit 29.2 % (39.0-51.0) Mean Corpuscular Volume 94.5 FL (80.0-100.0) Mean Corpuscular Hemoglobin 32.5 PG (27.0-34.0) Mean Corpuscular Hemoglobin Concent 34.4 % (32.0-36.0) Red Cell Distribution Width 24.3 % (11.6-17.2) Platelet Count 24 TH/MM3 (150-450) Mean Platelet Volume 7.8 FL (7.0-11.0) Neutrophils (%) (Auto) 80.5 % (16.0-70.0) Lymphocytes (%) (Auto) 9.0 % (9.0-44.0) Monocytes (%) (Auto) 8.3 % (0.0-8.0) Eosinophils (%) (Auto) 1.7 % (0.0-4.0) Basophils (%) (Auto) 0.5 % (0.0-2.0) Neutrophils # (Auto) 3.8 TH/MM3 (1.8-7.7) Lymphocytes # (Auto) 0.4 TH/MM3 (1.0-4.8) Monocytes # (Auto) 0.4 TH/MM3 (0-0.9) Eosinophils # (Auto) 0.1 TH/MM3 (0-0.4) Basophils # (Auto) 0.0 TH/MM3 (0-0.2) CBC Comment AUTO DIFF Differential Total Cells Counted 100 Neutrophils % (Manual) 42 % (16-70) Band Neutrophils % 52 % (0-6) Lymphocytes % 3 % (9-44) Monocytes % 2 % (0-8) Eosinophils % 1 % (0-4) Neutrophils # (Manual) 4.4 TH/MM3 (1.8-7.7) Differential Comment FINAL DIFF MANUAL Dohle Bodies PRESENT (NONE SEEN) Platelet Estimate LOW (NORMAL) Platelet Morphology Comment NORMAL (NORMAL) Ovalocytes 1+ (NORMAL) Keratocytes OCC (NORMAL) Prothrombin Time 21.4 SEC (9.8-11.6) Prothromb Time International Ratio 2.1 RATIO Blood Urea Nitrogen 19 MG/DL (7-18) Creatinine 0.99 MG/DL (0.60-1.30) Random Glucose 109 MG/DL (74-106) Total Protein 5.1 GM/DL (6.4-8.2) Albumin 1.9 GM/DL (3.4-5.0) Calcium Level 8.1 MG/DL (8.5-10.1) Phosphorus Level 2.6 MG/DL (2.5-4.9) Magnesium Level 2.1 MG/DL (1.5-2.5) Alkaline Phosphatase 85 U/L (45-117) Aspartate Amino Transf (AST/SGOT) 58 U/L (15-37) Alanine Aminotransferase (ALT/SGPT) 30 U/L (12-78) Total Bilirubin 6.6 MG/DL (0.2-1.0) Sodium Level 149 MEQ/L (136-145) Potassium Level 3.5 MEQ/L (3.5-5.1) Chloride Level 114 MEQ/L (98-107) Carbon Dioxide Level 28.2 MEQ/L (21.0-32.0) Anion Gap 7 MEQ/L (5-15) Estimat Glomerular Filtration Rate 77 ML/MIN (>89) Ammonia 17 MCMOL/L (11-32) Urine Color DARK-YELLOW (YELLW/STRAW) Urine Turbidity HAZY (CLEAR) Urine pH 5.0 (5.0-8.5) Urine Specific [place]ord 1.013 (1.002-1.035) Urine Protein NEG mg/dL (NEG-TRACE) Urine Glucose (UA) NEG mg/dL (NEG) Urine Ketones NEG mg/dL (NEG) Urine Occult Blood MOD (NEG) Urine Nitrite NEG (NEG) Urine Bilirubin SMALL (NEG) Urine Urobilinogen LESS THAN 2.0 MG/DL (LESS Urine Leukocyte Esterase NEG (NEG) Urine RBC 164 /hpf (0-3) Urine WBC 1 /hpf (0-5) Urine Squamous Epithelial Cells <1 /hpf (0-5) Urine Hyaline Casts 25 /lpf (RARE) Urine Mucus FEW /lpf (OCC) Microscopic Urinalysis Comment CULT NOT INDICATED . Result Diagram: 01/01/18 0415 01/01/18 0415 Microbiology Microbiology Date/Time Source Procedure Growth Status 01/01/18 18:20 Blood Peripheral Aerobic Blood Culture Pending Received 01/01/18 18:20 Blood Peripheral Anaerobic Blood Culture Pending Received 01/01/18 18:08 Blood Peripheral Aerobic Blood Culture Pending Received 01/01/18 18:08 Blood Peripheral Anaerobic Blood Culture Pending Received 01/01/18 15:35 Sputum Endotracheal Acid Fast Stain Pending Received 01/01/18 15:35 Sputum Endotracheal Mycobacterial Culture Pending Received 01/01/18 14:58 Sputum Endotracheal Gram Stain Pending Received 01/01/18 14:58 Sputum Endotracheal Sputum Culture Pending Received Imaging Last Impressions Chest X-Ray 01/01/18 0600 Signed Impressions: Service Date/Time: Monday, January 01, 2018 03:28 - CONCLUSION: Stable chest x-ray with bilateral airspace consolidation in the mid and lower lung zones with bilateral pleural effusions. Carlos Morales MD Abdomen X-Ray 12/30/17 0000 Signed Impressions: Service Date/Time: Saturday, December 30, 2017 13:16 - CONCLUSION: Nonobstructive bowel gas pattern. Jerardo Alejandro MD Liver Ultrasound 12/25/17 0000 Signed Impressions: Service Date/Time: Monday, December 25, 2017 09:17 - CONCLUSION: 1. Cirrhotic appearing liver with mild splenomegaly consistent with portal hypertension. The portal vein is patent with hepatopedal flow. 2. Gallbladder wall thickening with small amount of sludge and dominant gallstone. These findings are typically seen in patient's with chronic liver condition. 3. Incidental note of small bilateral pleural effusions. Jorge Roche MD . Procedures Orotracheal intubation 12/24/17 Left IJ central line placement 12/24/18 . Assessment and Plan Disease Oriented Problem List: (1) Abnormal LFTs (2) Septic shock (3) Hepatic failure (4) UGI bleed (5) Thrombocytopenia Symptom Scale: (1) Vomiting 0-10 Scale: Unable to quantify (patient intubated and sedated.) (2) Depression 0-10 Scale: Unable to quantify (patient intubated and sedated.) Pertinent Non-Medical Issues Psychosocial:Born in [place] but lived in [place] for many years. He has one sister who lives in [place]. He has been living in [place] for over 25 years, currently resides in [place]. He has 3 daughters, Fabi, who lives in [place], Melina who lives in [place] and Emely who lives in [place]. His recently . Spiritual: He is [employer] and sacraments of the sick have been requested. Legal: He has a previous healthcare surrogate naming his late and his daughter Melina as healthcare surrogates. He has reportedly recently completed new advanced directives naming his daughter Fabi as his primary healthcare surrogate and Rebekah Mendoza as his alternate. We are attempting to locate that paperwork through [employer] management, however in the meantime, I have spoken with all 3 daughters and Ms. Mendoza, all who agree that Fabi should be the decision-maker, as they know that is consistent with their father's wishes. Ethical issues impacting care: None noted. . Important Contacts Daughter: Fabi , Daughter: Melina Daughter: Emely Friend: Rebekah Reji, his reported DPOA . Prognosis His prognosis is poor. He is currently on mechanical ventilator requiring vasopressor support for hemodynamic stability. He has a known history of end- stage liver disease with esophageal varices and has recently resumed heavy alcohol intake after nearly a year of abstinence. He had previously been pursuing a liver transplant at the request of his late , but since her , he has stated to his daughters that he did not plan to go forth with the transplant. He has pancytopenia and coagulopathy. He is at high risk for continued bleeding and further complications. . Code Status: No Code (patient remains intubated but family would not want reintubation or cardiac resuscitation.) Plan PLAN: Legal decision maker: At this time his previous healthcare surrogate names his late as his primary and his daughter Melina as his secondary healthcare surrogate. There is reportedly a new healthcare surrogate completed but not available to us at this time. By [place] statutes we would abide by the previous healthcare surrogate having Melina as the decision-maker. Melina is aware that a recent descent with her father had caused him to change his mind and she and her sister Emely have requested that decision making be done by their sister Fabi, as they state that that is consistent with their father's wishes. Goals: Aggressive at this time pending arrival of the family at bedside. CODE STATUS: FULL CODE SYMPTOMS: * Encephalopathy: Multifactorial to include chronically elevated ammonia level, metabolic causes, end-stage liver disease. At this time he has been off sedation for greater than 24 hours and is not consistently responding to commands. Family wishes to allow further time for clearance medications prior to determining need for withdrawal of ventilatory support. He is currently on no sedating medications. He was intubated 12/24 and tracheostomy and PEG tube placement decisions made in the next 3-5 days. Family has agreed to meet and rediscuss prognosis and have forward at that time. * Depression: Patient has been significantly depressed since the loss of his and had resumed heavy alcohol use. He told his daughter believes that he did not plan to pursue liver transplant and that he did not "wish to sober" . I have contacted the archives director to arrange a lime burner visit for sacraments of the sick at the family's request and will continue to pursue social support if he stabilizes clinically. His recently while on hospice, making him eligible for hospice bereavement services if clinically stabilizes. His family is visiting from [place] and [place], which may lift some depression if he tolerates sedation vacation well. At this time he is not responding to family. Palliative care will continue to follow the patient during hospital course as condition evolves, to assist patient/decision-maker with understanding of their medical conditions, weighing benefits/burdens of treatment options, for clarification of goals of treatment. Additionally will assist with any symptoms of palliative concern. . Attestation To help prompt me to consider important information that might be impacting today's encounter and assessment, information from prior notes written by myself or my colleagues may have been "brought forward" into today's note. My signature on this note, however, is an attestation that I personally performed the exam, history, and/or decision-making noted today, and, unless otherwise indicated, the interactions with patient, family, and staff as well as the review of records all occurred today. I also attest that the listed assessment and stated plan reflect my best clinical judgment today based on the combination of historical information, prior notes, and today's exam/ interactions. When time spent is documented, it refers only to time spent today by the signer, or if indicated, combined time spent today by collaborating physician/nurse practitioner. . Codi Norman Jan 01, 2018 7:26 pm
[2018-01-01] MEDS: cefTRIAXone INJ 1,000 MG in SODIUM CHLORIDE 0.9% INJ 100 ML IV SCH (20:02)
[2018-01-01] MEDS ORDERED: ALBUMIN 5% INJ 500 ML IV ONE (23:00)
[2018-01-01] MEDS ORDERED: MIDAZOLAM HCL 2 MG/2 ML VIAL IV PUSH ONE (23:00)
[2018-01-01] MEDS: AMIODARONE INJ 450 MG in SODIUM CHLOR 0.9% (EXCEL) INJ 241 ML IV PRN (23:00)
[2018-01-02] VITALS (20 sets, daily range): BP systolic 94–146; BP diastolic 50–86; PULSE 90–118; RESP 25; TEMP 98.8–99.8; O2SAT 93–100
[2018-01-02] MEDS: DEXTROSE 5% IV SCH ×2 (00:47)
[2018-01-02] MEDS: WATER IV SCH ×2 (00:47)
[2018-01-02] MEDS: PANTOPRAZOLE IV SCH ×2 (00:47)
[2018-01-02] MEDS: LACTULOSE SYRUP 20 GM/30 ML CUP PO SCH ×4 (02:39→21:56)
[2018-01-02] MEDS: CHLORHEXIDINE GLUCONATE 2 % 1 PACK (2 CLOTHS) TOP SCH (02:40)
[2018-01-02] MEDS: FREE WATER G-TUBE SCH ×2 (05:07)
[2018-01-02] MEDS: ARTIFICIAL TEARS OPTH SOLN 15 ML BTL EACH EYE SCH ×3 (05:07→21:56)
--- NOTE | 2018-01-02 05:24 | RADRPT ---
EXAM DATE/TIME: 01/02/2018 03:12 [facility] COMPARISON: CHEST SINGLE AP, January 01, 2018, 3:28. INDICATIONS : Short of breath. MEDICAL HISTORY : Hypertension. Renal calculi. Cirrhosis. Esophageal varices ETOH abuse SURGICAL HISTORY : Paracentesis. ENCOUNTER: Subsequent ACUITY: 1 week PAIN SCORE: 0/10 LOCATION: Bilateral chest FINDINGS: Portable AP view of the chest demonstrates a normal-sized cardiac silhouette. ETT, left IJ line, and nasogastric tube remain present. Multiple lines overlie the patient. There is severe bilateral consol idation in the mid and lower lung zones bilaterally with likely pleural based opacities. No pneumotho rax is visualized. CONCLUSION: Stable chest x-ray with severe bilateral mid and lower lung zone airspace consolidation with likely a ssociated pleural effusions. Carlos Morales MD on January 02, 2018 at 5:22 Board Certified Radiologist. This report was verified electronically.
[2018-01-02 05:27] LABS: AUTOMATED NEUTROPHIL # 5.7 TH/MM3 (1.8-7.7); BASOPHIL % 0.3 % (0.0-2.0); EOSINOPHIL # 0.1 TH/MM3 (0-0.4); EOSINOPHIL % 1.7 % (0.0-4.0); HEMATOCRIT 27.7 % (39.0-51.0); HEMOGLOBIN 9.4 GM/DL (13.0-17.0); LYMPH % 4.7 % (9.0-44.0); LYMPHOCYTE # 0.3 TH/MM3 (1.0-4.8); MEAN CELL VOLUME 94.6 FL (80.0-100.0); MEAN CORPUSCULAR HEMOGLOBIN 32.2 PG (27.0-34.0); MEAN CORPUSCULAR HGB CONC 34.1 % (32.0-36.0); MEAN PLATELET VOLUME 7.7 FL (7.0-11.0); MONO % 6.8 % (0.0-8.0); MONOCYTE # 0.4 TH/MM3 (0-0.9); NEUT % 86.5 % (16.0-70.0); PLATELET COUNT 36 TH/MM3 (150-450); RED BLOOD COUNT 2.93 MIL/MM3 (4.50-5.90); RED CELL DISTRIBUTION WIDTH 23.7 % (11.6-17.2); WHITE BLOOD COUNT 6.5 TH/MM3 (4.0-11.0)
[2018-01-02 05:35] LABS: ALBUMIN 2.5 GM/DL (3.4-5.0); ALKALINE PHOSPHATASE 80 U/L (45-117); ALT (GPT) 25 U/L (12-78); AST (GOT) 47 U/L (15-37); BICARBONATE 29.8 MEQ/L (21.0-32.0); BLOOD UREA NITROGEN 22 MG/DL (7-18); CALCIUM 8.3 MG/DL (8.5-10.1); CHLORIDE 112 MEQ/L (98-107); CREATININE 0.99 MG/DL (0.60-1.30); GLOMERULAR FILTRATION RATE 77 ML/MIN (>89); GLUCOSE,RANDOM 120 MG/DL (74-106); MAGNESIUM 2.1 MG/DL (1.5-2.5); PHOSPHORUS 2.6 MG/DL (2.5-4.9); SODIUM (NA) 147 MEQ/L (136-145); TOTAL BILIRUBIN ADULT 7.7 MG/DL (0.2-1.0); TOTAL PROTEIN 5.7 GM/DL (6.4-8.2)
[2018-01-02] MEDS: POTASSIUM CHLOR 40 MEQ PREMIX 100 ML IV PRN ×2 (05:40→07:48)
[2018-01-02 06:39] LABS: BANDS 30 % (0-6); LYMPHOCYTES 2 % (9-44); METAMYELOCYTES 1 % (0-1); MONOCYTES 3 % (0-8); NEUTROPHIL # MANUAL DIFF 6.1 TH/MM3 (1.8-7.7); POLYS (SEG NEUTROPHILS) 63 % (16-70)
[2018-01-02 06:40] LABS: OVALOCYTES 1+ (NORMAL)
[2018-01-02] MEDS: PROPOFOL 1000 MG/100 ML INJ 100 ML IV PRN ×3 (07:46→22:00)
[2018-01-02] MEDS: DOCUSATE SODIUM 100 MG/10 ML UDC PO SCH ×2 (09:12→21:56)
[2018-01-02] MEDS: AMIODARONE INJ 450 MG in SODIUM CHLOR 0.9% (EXCEL) INJ 241 ML IV PRN (09:12)
[2018-01-02] MEDS: POLYETHYLENE GLYCOL 17 GM PKG NG SCH ×2 (09:12→21:55)
[2018-01-02] MEDS: FUROSEMIDE 40 MG/4 ML VIAL IV PUSH SCH ×2 (09:12→17:22)
[2018-01-02] MEDS: RIFAXIMIN 550 MG TAB PO SCH ×2 (09:12→21:56)
[2018-01-02] MEDS: SODIUM CHLORIDE 0.9% FLUSH 10 ML FLUSH IV FLUSH SCH ×3 (09:12→21:55)
[2018-01-02] MEDS: SENNOSIDES SYRUP 8.8 MG/5 ML CUP NG SCH ×2 (09:12→21:56)
[2018-01-02] MEDS: CHLORHEXIDINE 0.12% (ORAL KIT) 15 ML CUP MT SCH ×2 (09:15→21:54)
--- NOTE | 2018-01-02 10:34 | HHI.CCPN ---
Subjective Remarks/Hospital Course 62 yo male. Date of admission 12/24/2017. Consultation 12/24/2017. Past medical history includes liver cirrhosis with recurrent upper GI bleeding. He was diagnosed 04/11 with liver cirrhosis. He states he quit drinking alcohol that time he was followed at [facility] for liver transplantation evaluation. April 2017, upper GI bleeding - distal Russell's esophagus and grade 1 varices. Stomach no bladder ulcers. Mucosa does not appear edematous duodenum. Status post angiogram of the celiac, SMA revealed no hemorrhagic focus identified. No further bleeding. Patient was again admitted 08/13 for upper GI bleed. EGD revealed grade 1-2 septal varices in no active bleeding. Gastric varices in the fundus just 2 cm GE junction actively squirting blood. Banding not possible so injected with 6 cc of epinephrine to stop the bleeding. Large clots and stomach. Remain intubated on octreotide and Protonix drips. Recommended if continued bleeding need to consider for TIPS. Most recently was admitted December 11, 2017 with alcohol toxicity. His has recently and he has drinking alcohol again. His alcohol levels currently 234. He presented today with upper GI bleeding. He is noted to be pancytopenic in with a white blood cell count of 3.8. Hemoglobin 7.1 and platelets of 30. INR is 1.9. AST is elevated. Alcohol level is 234. Patient received 6 L normal saline was started on a Protonix and octreotide drip. He remained hypotensive and peripheral vasopressors were started. Manager Medical Affairs was consulted along with GI. Due to the upper GI bleed decision was made to secure the airway with oral tracheal intubation and placement of central line to receive rapid transfusion. I discussed this with daughter Fabi Ndiaye [phone] and she is in agreement with aggressive plans at the present time. I described to her d- dimer nature of his current clinical situation and she wished to be made aware of any medical decisions that need to be made. Michelle did make her the healthcare proxy at this time. 12/25: Transfused 6 PRBCs, 2 FFP and 2 platelets overnight. Currently norepinephrine at 5 mcg/m and vasopressin 0.04 units per minute. Afebrile. Arousable on the ventilator. We'll transfuse FFP, cryoprecipitate and platelets again this AM 12/26 Patient remains intubated and sedation . On Octreotide and Protonix drips. In addition he is on Levopehd 1 saul and Vasopressin0.04. NGT ahd approx 200ml coffee ground gastric output, 12/27: No further bleeding noted. INR currently 1.7. Platelets to 28K. family to arrive late . Possibly transition to comfort care Monday, however request aggressive cares in the interim short of CPR. 12/28: Status post EGD today. Possible brief episode of esophageal varices resolved. Portal gastropathy noted. Hemoglobin stable. Remains intubated. 12/29: Remains intubated. No active bleeding. Hemoglobin stable. Will diurese today. Positive since admission. No bowel movement Subjective 12/30: Minimal diuresis overnight. Hemoglobin remained stable. No bowel movement. Ordered magnesium citrate per GI. Increasing bowel regimen from my standpoint. Diuresed with furosemide 40 mg IV twice a day. 12/31: Patient noted to be deeply sedated this a.m. Fentanyl infusion placed on hold. Hypernatremia slightly resolved, all IV infusions base changed to D5W instead of normal saline. INR noted to be elevated, 1.9 no active signs of bleeding will monitor possible transfusion of FFP. Noted chest x-ray is worsening now patient with pleural effusions will continue the Lasix. Free water flushes have been decreased. 01/01: Currently encephalopathic, patient off sedation greater than 24 hours. Patient remains on octreotide and Protonix infusions at this time per GI. Discussion with palliative care and patient's daughter decision to continue aggressive care and terms short of CPR to be continued .INR 2.1 continues to be elevated 2.1 this a.m. 1 unit FFP to be transfused. Platelet count 24,000, patient to receive 1 unit of platelets. No active signs of bleeding. Bands increasing blood cultures obtained. 01/02: Overnight the patient went into A. fib RVR requiring cardioversion 2. The patient was then placed on amiodarone infusion without bolusing. The patient continued in sinus tach early this a.m.. The patient received 1 unit of FFP for INR greater than 2.0 yesterday, and one 6 pack of platelets. Patient 's pulmonary status continues to worsen significant consolidations, sodium level downtrending ,IV fluid discontinued. Patient's mentation improved spontaneous eye opening did not follow commands. Propofol infusion reinitiated early this a.m.. Objective Vital Signs Date Time Temp Pulse Resp B/P (MAP) Pulse Ox O2 Delivery O2 Flow Rate FiO2 01/02/18 10:10 95 100 01/02/18 10:00 101 01/02/18 09:12 105/54 01/02/18 08:00 99.5 01/02/18 04:00 25 12/30/17 07:00 Mechanical Ventilator Intake and Output 01/02/18 01/02/18 01/02/18 07:59 15:59 23:59 Intake Total 1537 ml 423 ml Output Total 1450 ml Balance 87 ml 423 ml Result Diagram: 01/02/18 0440 01/02/18 0440 Other Results Laboratory Tests Test 01/02/18 05:17 Blood Gas Puncture Site RT RADIAL Blood Gas Patient Temperature 98.6 Blood Gas HCO3 27 mmol/L (22-26) Blood Gas Base Excess 2.5 mmol/L (-2-2) Blood Gas Oxygen Saturation 94 % (90-100) Arterial Blood pH 7.39 (7.380-7.420) Arterial Blood Partial Pressure CO2 46 mmHg (38-42) Arterial Blood Partial Pressure O2 92 mmHg (61-120) Arterial Blood Oxygen Content 13.2 Vol % (12.0-20.0) Arterial Blood Carboxyhemoglobin 1.3 % (0-4) Arterial Blood Methemoglobin 1.5 % (0-2) Blood Gas Hemoglobin 9.9 G/DL (12.0-16.0) Oxygen Delivery Device VENT Blood Gas Ventilator Setting SEE COMMENTS Blood Gas Inspired Oxygen 80 % Imaging Last Impressions Chest X-Ray 12/29/17 06 Signed Impressions: Service Date/Time: Friday, December 29, 2017 03:52 - CONCLUSION: No significant change has occurred. Tyler Mahmood MD Abdomen X-Ray 12/29/17 06 Signed Impressions: Service Date/Time: Friday, December 29, 2017 03:54 - CONCLUSION: Decreased bowel distention. Tyler Mahmood MD Liver Ultrasound 12/25/17 0000 Signed Impressions: Service Date/Time: Monday, December 25, 2017 09:17 - CONCLUSION: 1. Cirrhotic appearing liver with mild splenomegaly consistent with portal hypertension. The portal vein is patent with hepatopedal flow. 2. Gallbladder wall thickening with small amount of sludge and dominant gallstone. These findings are typically seen in patient's with chronic liver condition. 3. Incidental note of small bilateral pleural effusions. Jorge Roche MD Objective Remarks GENERAL: 62 -year-old male currently orotracheally intubated, spontaneous eye opening SKIN: Warm and dry. No rash HEAD: Atraumatic. Normocephalic. EYES: Pupils equal and round about 3 mm bilaterally and reactive. + scleral icterus. No injection or drainage. ENT: Blood from oral mucosa during intubation notice. Positive petechiae. NECK: Trachea midline. No JVD. CARDIOVASCULAR: Tachycardic rate and rhythm. S1, S2. No S4. RESPIRATORY: No accessory muscle use. Clear to auscultation. Breath sounds equal bilaterally. GASTROINTESTINAL: Abdomen slightly taut, nontender. Hypoactive bowel sounds are appreciated. MUSCULOSKELETAL: Extremities with 2+ B/L upper and lower extremity edema. No obvious deformities. NEUROLOGICAL: RASS -2. All sedation placed on hold for approximately 24 hours patient currently only withdraws to pain, . Previously, motor grossly within normal limits. Five out of 5 muscle strength in the arms and legs. Normal speech prior to intubation 12/24. Procedures 01/02: Cardioversion 2, with initiation of amiodarone infusion. Date of Insertion: Dec 24, 2017 Line: Central Venous Catheter Side: Left Location: Internal, Jugular A/P Assessment and Plan Neuro/Psych: EtOH intoxication Toxic metabolic encephalopathy secondary to elevated ammonia Propofol infusion reinitiated for sedation/analgesia while intubated Goal of RASS -2 Daily sedation vacation Ofirmev 1 g IV every 8 hours when necessary fever Upon admission ,EtOH level was 234. on vitamin bag daily for 3 days and switch to thiamine 100 mg IV daily on 12/27 Ammonia level 17 on 01/02. Continue rifaximin, and trend level Continue neurochecks per ICU protocol. CV: A. fib RVR 2/ Currently off all vasopressors. On 11/30 NSS at 42 cc an hour Goal keep mean arterial pressure greater than equal to 65 Placed on 40 mg IV twice a day in attempt to diurese 01/02-cardioversion 2, initiation of amiodarone infusion. Patient transitioned to by mouth amiodarone twice a day Resp: Acute hypoxemic respiratory failure History of loculated right pleural effusion status post right chest tube/Pleurx catheter [facility] /12/01/44 Ventilator bundle Albuterol/ipratropium aerosols every 6 hours with albuterol aerosols every 2 hours. Dyspnea Maintain head of bed at 30 01/01 CXR: Pleural effusions, chest x-ray worsening GI: Recurrent upper GI bleeding - negative gastroduodenal artery evaluation 05/13 History of esophageal varices - grade 1-2. Most recently epinephrine injected Portal gastropathy Portal hypertension Splenomegaly EtOH cirrhosis History of Alicia-Dyson tear History of Russell's esophagus Hyperammonia Hypoalbuminemia Elevated total bilirubin Melena Dietary consult for tube feed initiation today 01/02 On pantoprazole drip at 8 mg an hour transitioned to twice a day Sandostatin drip at 25 g an hour discontinued 01/01 ceftriaxone 1 g daily for upper GI bleed GI following Dr. Marie. s/p EGD: Probable gastric varices, portal gastropathy and Russell;s esophagus, signed off 12/30 Continue lactulose 30 cc Q6 and Xifaxan 550 mill grams twice a day for elevated ammonia level. Trend ammonia levels Renal/: Mcdonald catheter for accurate I's and O's in a critically ill patient Discontinued IV fluids. 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 Elias for intermittent transfusions and Neupogen injections during prior hospitalizations Haptoglobin slightly low at 29. LDH normal. 01/01 FFP 1 unit, 1 unit of platelets to be transfused ID: Monitor for infection On ceftriaxone for upper GI bleed 01/01-obtain blood and sputum culture- NGTD MSK: PT evaluate and treat FEN Hypernatremia Electrolyte derangement Replace electrolytes per ICU electrolyte protocol Free water 100 every 6 hours 01/02 is continued 11/30 NSS 42 cc an hour Sodium level downtrending Access - Left IJ CVL day #10 place 12/24 Prophylaxis - GI - pantoprazole drip/octreotide drip - DVT - SCD/pharmacological prophylaxis contraindicated with upper GI bleed Palliative care is following-meeting held on 01/01 see palliative care note. Plan currently is to continue aggressive measures short of CPR. Dispo: Discussed with ORE CHARGER at bedside (Merna) Critical Care: my billing statement This patient remains critically ill with one or more organ systems which are or may become a threat to life. I have spent in excess of 39minutes discontinuously in the care and management of this patient. This time is exclusive of procedures, and includes, but is not limited to, evaluation of the patient, review of the medical record, discussions with family, consultants, nursing staff, or respiratory therapy, and documentation in the medical record. Physician Delilah Solis MD Jan 02, 2018 10:34
[2018-01-02] MEDS: AMIODARONE 200 MG TAB PO SCH ×2 (11:02→21:56)
[2018-01-02] MEDS: PANTOPRAZOLE SODIUM 40 MG VIAL IV PUSH SCH ×2 (11:03→21:55)
--- NOTE | 2018-01-02 15:30 | EKG ---
Date Performed: 01/01/2018 Time Performed: 22:23:16 PTAGE: 62 years EKG: Atrial fibrillation with uncontrolled ventricular response. Indeterminate axis Right bundle branch block Inferior ST-T changes are nonspecific When compared to previous tracing, there is now e vidence of Atrial fibrillation with a rapid ventricular response. Abnormal ECG PREVIOUS TRACING : 12/24/2017 17.45 DOCTOR: Jonna Champagne Interpretating Date/Time 01/02/2018 15:28:03
[2018-01-02] MEDS: SODIUM CHLORIDE 0.9% FLUSH 10 ML FLUSH IV FLUSH PRN (17:22)
[2018-01-02] MEDS: THIAMINE HCL 100 MG TAB OG-TUBE SCH (17:22)
[2018-01-02] MEDS: cefTRIAXone INJ 1,000 MG in SODIUM CHLORIDE 0.9% INJ 100 ML IV SCH (21:55)
[2018-01-03] VITALS (19 sets, daily range): BP systolic 102–143; BP diastolic 53–65; PULSE 96–117; RESP 16; TEMP 98.5–99.7; O2SAT 94–98
[2018-01-03] MEDS: LACTULOSE SYRUP 20 GM/30 ML CUP PO SCH ×4 (03:38→21:50)
[2018-01-03] MEDS: CHLORHEXIDINE GLUCONATE 2 % 1 PACK (2 CLOTHS) TOP SCH (03:38)
--- NOTE | 2018-01-03 04:45 | RADRPT ---
EXAM DATE/TIME: 01/03/2018 04:12 [facility] COMPARISON: CHEST SINGLE AP, January 02, 2018, 3:12. INDICATIONS : Short of breath. MEDICAL HISTORY : Hypertension. Renal calculi. Cirrhosis. Esophageal varices ETOH abuse SURGICAL HISTORY : Paracentesis. ENCOUNTER: Subsequent ACUITY: 2 weeks PAIN SCORE: 0/10 LOCATION: Bilateral chest FINDINGS: Portable AP view of the chest demonstrates a normal-sized cardiac silhouette. ETT, NG tube, and left IJ central line remain present. There is severe diffuse bilateral airspace consolidation with left pl eural based opacity. No pneumothorax is identified. Bones and soft tissues demonstrate no acute findi ng. CONCLUSION: Stable chest x-ray with severe diffuse bilateral airspace consolidation and left pleural effusion. Carlos Morales MD on January 03, 2018 at 4:43 Board Certified Radiologist. This report was verified electronically.
[2018-01-03] MEDS: PROPOFOL 1000 MG/100 ML INJ 100 ML IV PRN ×4 (05:00→23:58)
[2018-01-03] MEDS: ARTIFICIAL TEARS OPTH SOLN 15 ML BTL EACH EYE SCH ×2 (06:05→14:10)
[2018-01-03 06:38] LABS: ALBUMIN 2.2 GM/DL (3.4-5.0); ALT (GPT) 23 U/L (12-78); AST (GOT) 47 U/L (15-37); BICARBONATE 29.9 MEQ/L (21.0-32.0); BLOOD UREA NITROGEN 23 MG/DL (7-18); CALCIUM 8.2 MG/DL (8.5-10.1); CHLORIDE 113 MEQ/L (98-107); CREATININE 1.08 MG/DL (0.60-1.30); GLOMERULAR FILTRATION RATE 69 ML/MIN (>89); GLUCOSE,RANDOM 132 MG/DL (74-106); MAGNESIUM 2.3 MG/DL (1.5-2.5); PHOSPHORUS 2.2 MG/DL (2.5-4.9); SODIUM (NA) 150 MEQ/L (136-145)
[2018-01-03 06:40] LABS: ALKALINE PHOSPHATASE 80 U/L (45-117); TOTAL BILIRUBIN ADULT 7.4 MG/DL (0.2-1.0); TOTAL PROTEIN 5.6 GM/DL (6.4-8.2)
[2018-01-03] MEDS: RESP: ALBUTEROL 2.5 MG/3 ML NEB (PRN) INH ×2 (07:24→20:49)
[2018-01-03] MEDS: POTASSIUM PHOSPHATE INJ 30 MMOL in SODIUM CHLOR 0.9% 250 ML INJ 250 ML IV PRN (08:18)
[2018-01-03] MEDS: POLYETHYLENE GLYCOL 17 GM PKG NG SCH ×2 (08:51→21:51)
[2018-01-03] MEDS: SODIUM CHLORIDE 0.9% FLUSH 10 ML FLUSH IV FLUSH PRN ×2 (08:52→08:53)
[2018-01-03] MEDS: SODIUM CHLORIDE 0.9% FLUSH 10 ML FLUSH IV FLUSH SCH ×2 (08:52)
[2018-01-03] MEDS: FUROSEMIDE 40 MG/4 ML VIAL IV PUSH SCH ×2 (08:54→18:01)
[2018-01-03] MEDS: SENNOSIDES SYRUP 8.8 MG/5 ML CUP NG SCH ×2 (08:55→21:50)
[2018-01-03] MEDS: RIFAXIMIN 550 MG TAB PO SCH ×2 (08:55→21:51)
[2018-01-03] MEDS: THIAMINE HCL 100 MG TAB OG-TUBE SCH (08:55)
[2018-01-03] MEDS: DOCUSATE SODIUM 100 MG/10 ML UDC PO SCH ×2 (08:55→21:50)
[2018-01-03] MEDS: PANTOPRAZOLE SODIUM 40 MG VIAL IV PUSH SCH ×2 (08:55→21:51)
[2018-01-03] MEDS: AMIODARONE 200 MG TAB PO SCH ×2 (08:55→21:51)
[2018-01-03] MEDS: CHLORHEXIDINE 0.12% (ORAL KIT) 15 ML CUP MT SCH ×2 (08:56→21:52)
--- NOTE | 2018-01-03 12:37 | HHI.CCPN ---
Subjective Remarks/Hospital Course 62 yo male. Date of admission 12/24/2017. Consultation 12/24/2017. Past medical history includes liver cirrhosis with recurrent upper GI bleeding. He was diagnosed 04/11 with liver cirrhosis. He states he quit drinking alcohol that time he was followed at [facility] for liver transplantation evaluation. April 2017, upper GI bleeding - distal Russell's esophagus and grade 1 varices. Stomach no bladder ulcers. Mucosa does not appear edematous duodenum. Status post angiogram of the celiac, SMA revealed no hemorrhagic focus identified. No further bleeding. Patient was again admitted 08/13 for upper GI bleed. EGD revealed grade 1-2 septal varices in no active bleeding. Gastric varices in the fundus just 2 cm GE junction actively squirting blood. Banding not possible so injected with 6 cc of epinephrine to stop the bleeding. Large clots and stomach. Remain intubated on octreotide and Protonix drips. Recommended if continued bleeding need to consider for TIPS. Most recently was admitted December 11, 2017 with alcohol toxicity. His has recently and he has drinking alcohol again. His alcohol levels currently 234. He presented today with upper GI bleeding. He is noted to be pancytopenic in with a white blood cell count of 3.8. Hemoglobin 7.1 and platelets of 30. INR is 1.9. AST is elevated. Alcohol level is 234. Patient received 6 L normal saline was started on a Protonix and octreotide drip. He remained hypotensive and peripheral vasopressors were started. Business Development Consultant was consulted along with GI. Due to the upper GI bleed decision was made to secure the airway with oral tracheal intubation and placement of central line to receive rapid transfusion. I discussed this with daughter Fabi Ndiaye [phone] and she is in agreement with aggressive plans at the present time. I described to her d- dimer nature of his current clinical situation and she wished to be made aware of any medical decisions that need to be made. Michelle did make her the healthcare proxy at this time. 12/25: Transfused 6 PRBCs, 2 FFP and 2 platelets overnight. Currently norepinephrine at 5 mcg/m and vasopressin 0.04 units per minute. Afebrile. Arousable on the ventilator. We'll transfuse FFP, cryoprecipitate and platelets again this AM 12/26 Patient remains intubated and sedation . On Octreotide and Protonix drips. In addition he is on Levopehd 1 saul and Vasopressin0.04. NGT ahd approx 200ml coffee ground gastric output, 12/27: No further bleeding noted. INR currently 1.7. Platelets to 28K. family to arrive late . Possibly transition to comfort care Monday, however request aggressive cares in the interim short of CPR. 12/28: Status post EGD today. Possible brief episode of esophageal varices resolved. Portal gastropathy noted. Hemoglobin stable. Remains intubated. 12/29: Remains intubated. No active bleeding. Hemoglobin stable. Will diurese today. Positive since admission. No bowel movement Subjective 12/30: Minimal diuresis overnight. Hemoglobin remained stable. No bowel movement. Ordered magnesium citrate per GI. Increasing bowel regimen from my standpoint. Diuresed with furosemide 40 mg IV twice a day. 12/31: Patient noted to be deeply sedated this a.m. Fentanyl infusion placed on hold. Hypernatremia slightly resolved, all IV infusions base changed to D5W instead of normal saline. INR noted to be elevated, 1.9 no active signs of bleeding will monitor possible transfusion of FFP. Noted chest x-ray is worsening now patient with pleural effusions will continue the Lasix. Free water flushes have been decreased. 01/01: Currently encephalopathic, patient off sedation greater than 24 hours. Patient remains on octreotide and Protonix infusions at this time per GI. Discussion with palliative care and patient's daughter decision to continue aggressive care and terms short of CPR to be continued .INR 2.1 continues to be elevated 2.1 this a.m. 1 unit FFP to be transfused. Platelet count 24,000, patient to receive 1 unit of platelets. No active signs of bleeding. Bands increasing blood cultures obtained. 01/02: Overnight the patient went into A. fib RVR requiring cardioversion 2. The patient was then placed on amiodarone infusion without bolusing. The patient continued in sinus tach early this a.m.. The patient received 1 unit of FFP for INR greater than 2.0 yesterday, and one 6 pack of platelets. Patient 's pulmonary status continues to worsen significant consolidations, sodium level downtrending ,IV fluid discontinued. Patient's mentation improved spontaneous eye opening did not follow commands. Propofol infusion reinitiated early this a.m.. 01/03: Afebrile. FiO2 requirement slightly decreased to 60%. Sputum culture revealed gram-negative rods antibiotic coverage expanded to Aztreonam, patient currently on Rocephin. ID has been consulted. ETT day 10, discussed with family the possibility of tracheostomy. Daughter has stated previously "he would not want a trach or PEG". Follow-up with palliative care to us define goals of care. No further cardiac arrhythmias, patient continues on amiodarone PO. Objective Vital Signs Date Time Temp Pulse Resp B/P (MAP) Pulse Ox O2 Delivery O2 Flow Rate FiO2 01/03/18 11:16 94 50 01/03/18 10:00 102 01/03/18 08:00 99.7 102/55 (71) 01/02/18 04:00 25 12/30/17 07:00 Mechanical Ventilator Intake and Output 01/03/18 01/03/18 01/04/18 08:00 16:00 00:00 Intake Total 347 ml 100 ml Output Total 900 ml Balance -553 ml 100 ml Result Diagram: 01/02/18 0440 01/03/18 0557 Other Results Laboratory Tests Test 01/03/18 05:37 Blood Gas Puncture Site LT RADIAL Blood Gas Patient Temperature 98.6 Blood Gas HCO3 28 mmol/L (22-26) Blood Gas Base Excess 3.5 mmol/L (-2-2) Blood Gas Oxygen Saturation 92 % (90-100) Arterial Blood pH 7.40 (7.380-7.420) Arterial Blood Partial Pressure CO2 47 mmHg (38-42) Arterial Blood Partial Pressure O2 78 mmHg (61-120) Arterial Blood Oxygen Content 13.5 Vol % (12.0-20.0) Arterial Blood Carboxyhemoglobin 1.3 % (0-4) Arterial Blood Methemoglobin 1.5 % (0-2) Blood Gas Hemoglobin 10.4 G/DL (12.0-16.0) Oxygen Delivery Device VENTILATOR Blood Gas Ventilator Setting PRVC16/500/1.0/+8 Blood Gas Inspired Oxygen 60 % Imaging Last Impressions Chest X-Ray 12/29/17599 Signed Impressions: Service Date/Time: Friday, December 29, 2017 03:52 - CONCLUSION: No significant change has occurred. Tlyer Mahmood MD Abdomen X-Ray 2/2/18 0600 Signed Impressions: Service Date/Time: Friday, December 29, 2017 03:54 - CONCLUSION: Decreased bowel distention. Tyler Mahmood MD Liver Ultrasound 12/25/17 0000 Signed Impressions: Service Date/Time: Monday, December 25, 2017 09:17 - CONCLUSION: 1. Cirrhotic appearing liver with mild splenomegaly consistent with portal hypertension. The portal vein is patent with hepatopedal flow. 2. Gallbladder wall thickening with small amount of sludge and dominant gallstone. These findings are typically seen in patient's with chronic liver condition. 3. Incidental note of small bilateral pleural effusions. Jorge Roche MD Objective Remarks GENERAL: 62 -year-old male currently orotracheally intubated and sedated SKIN: Warm and dry. No rash HEAD: Atraumatic. Normocephalic. EYES: Pupils equal and round about 3 mm bilaterally and reactive. + scleral icterus. No injection or drainage. ENT: Blood from oral mucosa during intubation notice. Positive petechiae. NECK: Trachea midline. No JVD. CARDIOVASCULAR: Tachycardic rate and rhythm. S1, S2. No S4. RESPIRATORY: No accessory muscle use. Clear to auscultation. Breath sounds equal bilaterally. GASTROINTESTINAL: Abdomen slightly taut, nontender. Hypoactive bowel sounds are appreciated. MUSCULOSKELETAL: Extremities with 2+ B/L upper and lower extremity edema. No obvious deformities. NEUROLOGICAL: RASS -2. All sedation placed on hold for approximately 24 hours patient currently only withdraws to pain, . Previously, motor grossly within normal limits. Five out of 5 muscle strength in the arms and legs. Normal speech prior to intubation 12/24. Procedures 01/02: Cardioversion 2, with initiation of amiodarone infusion. Date of Insertion: Dec 24, 2017 Line: Central Venous Catheter Side: Left Location: Internal, Jugular A/P Assessment and Plan Neuro/Psych: EtOH intoxication Toxic metabolic encephalopathy secondary to elevated ammonia Propofol infusion reinitiated for sedation/analgesia while intubated Goal of RASS -2 Daily sedation vacation Ofirmev 1 g IV every 8 hours when necessary fever Upon admission ,EtOH level was 234. on vitamin bag daily for 3 days and switch to thiamine 100 mg IV daily on 12/27 Ammonia level 17 on 01/02. Continue rifaximin, and trend level Continue neurochecks per ICU protocol. CV: A. fib RVR 2 Currently off all vasopressors. 11/30 NSS at 42 cc /hr discontinued 01/02 Goal keep mean arterial pressure greater than equal to 65 Placed on 40 mg IV twice a day in attempt to diurese 01/02-cardioversion 2, initiation of amiodarone infusion. Patient transitioned to by mouth amiodarone twice a day Resp: Acute hypoxemic respiratory failure History of loculated right pleural effusion status post right chest tube/Pleurx catheter PRVC 16/12/01/44 Ventilator bundle Albuterol/ipratropium aerosols every 6 hours with albuterol aerosols every 2 hours. Dyspnea Maintain head of bed at 30 01/01 CXR: Pleural effusions, chest x-ray worsening GI: Recurrent upper GI bleeding - negative gastroduodenal artery evaluation 05/13 History of esophageal varices - grade 1-2. Most recently epinephrine injected Portal gastropathy Portal hypertension Splenomegaly EtOH cirrhosis History of Alicia-Dyson tear History of Russell's esophagus Hyperammonia Hypoalbuminemia Elevated total bilirubin Melena Continue tube feeds 01/02 On pantoprazole drip at 8 mg an hour transitioned to twice a day Sandostatin drip at 25 g an hour discontinued 01/01 ceftriaxone 1 g daily for upper GI bleed GI following Dr. Marie. s/p EGD: Probable gastric varices, portal gastropathy and Russell;s esophagus, signed off 12/30 Continue lactulose 30 cc Q6 and Xifaxan 550 mill grams twice a day for elevated ammonia level. Trend ammonia levels Renal/: Mcdonald catheter for accurate I's and O's in a critically ill patient Discontinued IV fluids. 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 Hernandez and Narcisa for intermittent transfusions and Neupogen injections during prior hospitalizations Haptoglobin slightly low at 29. LDH normal. 01/01 FFP 1 unit, 1 unit of platelets to be transfused ID: Monitor for infection On ceftriaxone for upper GI bleed 01/01-obtain blood - NGTD sputum culture- gram-negative rods. Patient on aztreonam and Rocephin ID consulted MSK: PT evaluate and treat FEN Hypernatremia Electrolyte derangement Replace electrolytes per ICU electrolyte protocol Free water 100 every 6 hours 01/02 is continued 11/30 NSS 42 cc an hour Sodium level downtrending Access - Left IJ CVL day #11 place 12/24 Prophylaxis - GI - pantoprazole drip/octreotide drip - DVT - SCD/pharmacological prophylaxis contraindicated with upper GI bleed Palliative care is following-meeting held on 01/01 see palliative care note. Plan currently is to continue aggressive measures short of CPR. Dispo: Discussed with FRONT END ALIGNMENT SPECIALIST at bedside (Zara) and daughter Fabi. Patient's daughter states patient would not want a tracheostomy nor PEG tube placement. Requests meeting with Palliative care on Monday to possibly institute comfort care measures versus Hospice. Critical Care: my billing statement This patient remains critically ill with one or more organ systems which are or may become a threat to life. I have spent in excess of 30 minutes discontinuously in the care and management of this patient. This time is exclusive of procedures, and includes, but is not limited to, evaluation of the patient, review of the medical record, discussions with family, consultants, nursing staff, or respiratory therapy, and documentation in the medical record. Physician Delilah Solis MD Jan 03, 2018 12:37
[2018-01-03] MEDS: AZTREONAM INJ 2,000 MG in SODIUM CHLORIDE 0.9% INJ 100 ML IV SCH ×2 (14:11→21:51)
--- NOTE | 2018-01-03 14:36 | MB ---
cc: CAREY MORENO MD, FRANKLYN F. MD DATE OF CONSULTATION 01/03/[address] Moreno. REASON FOR CONSULTATION Patient with end-stage liver disease. Now with gram-negative rods in sputum. ID management. HISTORY OF PRESENT ILLNESS This is a 62-year-old white male who has a history of alcohol use and alcoholic liver disease. The patient was found with bloody vomiting at his home and was brought to the emergency department. He was admitted to the hospital and managed in the intensive care unit. Because of upper GI bleeding he was intubated to secure his airway. The patient has remained intubated and on the ventilator. He was sedated up until approximately 10 minutes ago when the sedation was turned off. He is not responding in any meaningful way. The patient underwent an EGD and it showed short segment Russell's esophagus. His white blood cell count has been low to normal. At one point the white count was 1.7 on 12/29/2017 and today it is 6.5. Chest x-ray from today shows stable chest with severe diffuse bilateral airspace consolidation and left pleural effusion. Sputum culture was obtained on 01/01/2018 and it has gram-negative skyler. His temperature has been normal except for occasional low-grade fever with temperature under 100 degrees. PAST MEDICAL HISTORY 1. Alcohol-related hepatitis. 2. Liver cirrhosis. 3. Portal hypertension. 4. History of anemia. 5. History of Alicia-Dyson tear, esophageal varices, Russell's esophagus. 6. Recurrent pleural effusions. 7. History of lithotripsy for kidney stones. 8. Right chest tube placement in September 2016. ALLERGIES No known drug allergies. MEDICATIONS 1. Aztreonam. 2. Cordarone. 3. Thiamine. 4. Protonix. 5. Lasix. 6. Potassium. 7. Lactulose. 8. Rifaximin. 9. Ceftriaxone. SOCIAL HISTORY Unable to obtain because the patient is on the ventilator. PHYSICAL EXAMINATION GENERAL: This is a well-developed male who is unresponsive on the ventilator. VITAL SIGNS: Temperature 99.7, BP 117/65. HEENT: Sclera is non-icteric. Oropharynx moist mucosa without lesions. NECK: Supple. No adenopathy. LUNGS: Diminished breath sounds bilateral. HEART: Regular without murmurs, rubs or gallops. ABDOMEN: Obese, soft, mildly distended, no masses palpable. RECTAL: Not performed. The patient was a rectal bag in place which has maroon-colored liquid stools. EXTREMITIES: No clubbing, cyanosis or edema. SKIN: No diffuse rash. NEUROLOGIC: Unable to assess since the patient is on the ventilator. PSYCHIATRIC: Unable to assess. LABORATORY WBC 6.5, platelets 36, hemoglobin 9.4; 86% neutrophils. Sodium 150, creatinine 1.08, estimated GFR 69, AST 47, ALT 23. IMPRESSION 1. Positive sputum culture with gram-negative bacteria preliminary. Bilateral infiltrates on the chest x-ray. The patient has diffuse pneumonia. 2. Acute respiratory failure. 3. End-stage liver disease. 4. GI bleed. RECOMMENDATIONS 1. Continue aztreonam. 2. Monitor sputum cultures closely for identity and sensitivity of the bacteria. 3. Monitor the patient's clinical status. 4. Monitor white blood cell count and temperature. The gram-negative skyler potentially could be an ESBL-producing organism. The patient appears to have aspirated and may have had aspiration of not only oral contents with bacterial organisms but blood as well leading to the diffuse infiltrates. Thank you for this consultation. I will monitor his progress and make further recommendations upon follow-up. Felix Lara MD FD/KATI /12:51 PM /2:02 PM
[2018-01-03] MEDS: cefTRIAXone INJ 1,000 MG in SODIUM CHLORIDE 0.9% INJ 100 ML IV SCH (21:50)
[2018-01-04] VITALS (26 sets, daily range): BP systolic 90–135; BP diastolic 51–67; PULSE 78–109; RESP 16–22; TEMP 99.3–100; O2SAT 93–100
--- NOTE | 2018-01-04 04:04 | RADRPT ---
EXAM DATE/TIME: 01/04/2018 03:18 [facility] COMPARISON: CHEST SINGLE AP, January 03, 2018, 4:12. INDICATIONS : Shortness of breath, possible pulmonary disease. MEDICAL HISTORY : Hypertension. Renal calculi. Cirrhosis. Esophageal varices ETOH abuse SURGICAL HISTORY : Paracentesis ENCOUNTER: Subsequent ACUITY: 2 weeks PAIN SCORE: Non-responsive. LOCATION: Bilateral chest FINDINGS: Portable AP view of the chest demonstrates a normal-sized cardiac silhouette. ETT, left IJ line, and nasogastric tube remain present. There is a stable left pleural-based opacity with bilateral airspace consolidation. No pneumothorax is visualized. CONCLUSION: Stable chest x-ray with left pleural effusion and diffuse bilateral airspace consolidation. Carlos Morales MD on January 04, 2018 at 4:02 Board Certified Radiologist. This report was verified electronically.
[2018-01-04 05:36] LABS: AUTOMATED NEUTROPHIL # 4.5 TH/MM3 (1.8-7.7); BASOPHIL % 0.7 % (0.0-2.0); EOSINOPHIL # 0.2 TH/MM3 (0-0.4); EOSINOPHIL % 4.1 % (0.0-4.0); HEMATOCRIT 27.8 % (39.0-51.0); HEMOGLOBIN 9.5 GM/DL (13.0-17.0); LYMPH % 6.4 % (9.0-44.0); LYMPHOCYTE # 0.4 TH/MM3 (1.0-4.8); MEAN CELL VOLUME 94.8 FL (80.0-100.0); MEAN CORPUSCULAR HEMOGLOBIN 32.5 PG (27.0-34.0); MEAN CORPUSCULAR HGB CONC 34.3 % (32.0-36.0); MEAN PLATELET VOLUME 8.4 FL (7.0-11.0); MONO % 6.5 % (0.0-8.0); MONOCYTE # 0.4 TH/MM3 (0-0.9); NEUT % 82.3 % (16.0-70.0); PLATELET COUNT 25 TH/MM3 (150-450); RED BLOOD COUNT 2.93 MIL/MM3 (4.50-5.90); RED CELL DISTRIBUTION WIDTH 23.8 % (11.6-17.2); WHITE BLOOD COUNT 5.5 TH/MM3 (4.0-11.0)
[2018-01-04 05:41] LABS: BICARBONATE 29.7 MEQ/L (21.0-32.0); CALCIUM 7.8 MG/DL (8.5-10.1); CREATININE 1.07 MG/DL (0.60-1.30); MAGNESIUM 2.1 MG/DL (1.5-2.5); PHOSPHORUS 2.6 MG/DL (2.5-4.9)
[2018-01-04] MEDS: LACTULOSE SYRUP 20 GM/30 ML CUP PO SCH ×4 (05:46→21:48)
[2018-01-04] MEDS: AZTREONAM INJ 2,000 MG in SODIUM CHLORIDE 0.9% INJ 100 ML IV SCH ×3 (05:47→21:49)
[2018-01-04] MEDS: PROPOFOL 1000 MG/100 ML INJ 100 ML IV PRN ×3 (05:47→17:05)
[2018-01-04] MEDS: SODIUM CHLORIDE 0.9% FLUSH 10 ML FLUSH IV FLUSH PRN ×2 (08:27)
[2018-01-04] MEDS: SODIUM CHLORIDE 0.9% FLUSH 10 ML FLUSH IV FLUSH SCH ×3 (08:27→21:49)
[2018-01-04] MEDS: FUROSEMIDE 40 MG/4 ML VIAL IV PUSH SCH ×2 (08:28→17:51)
[2018-01-04] MEDS: CHLORHEXIDINE 0.12% (ORAL KIT) 15 ML CUP MT SCH ×2 (08:28→21:48)
[2018-01-04] MEDS: AMIODARONE 200 MG TAB PO SCH ×2 (08:29→21:48)
[2018-01-04] MEDS: RIFAXIMIN 550 MG TAB PO SCH ×2 (08:29→21:48)
[2018-01-04] MEDS: PANTOPRAZOLE SODIUM 40 MG VIAL IV PUSH SCH ×2 (08:29→21:49)
[2018-01-04] MEDS: POLYETHYLENE GLYCOL 17 GM PKG NG SCH ×2 (08:29→21:49)
[2018-01-04] MEDS: SENNOSIDES SYRUP 8.8 MG/5 ML CUP NG SCH ×2 (08:29→21:00)
[2018-01-04] MEDS: THIAMINE HCL 100 MG TAB OG-TUBE SCH (08:29)
[2018-01-04] MEDS: DOCUSATE SODIUM 100 MG/10 ML UDC PO SCH ×2 (08:30→21:48)
[2018-01-04 08:47] LABS: BANDS 26 % (0-6); BASOPHILS 2 % (0-2); CORRECTED NUCLEATED RBC 1 /100 WBC (0-0); LYMPHOCYTES 7 % (9-44); METAMYELOCYTES 2 % (0-1); MONOCYTES 1 % (0-8); NEUTROPHIL # MANUAL DIFF 4.8 TH/MM3 (1.8-7.7); NUCLEATED RED BLOOD CELL 1 (0-0); POLYS (SEG NEUTROPHILS) 59 % (16-70)
[2018-01-04 08:48] LABS: DOHLE BODIES PRESENT (NONE SEEN); TOXIC GRANULATION 1+ (NORMAL)
--- NOTE | 2018-01-04 12:59 | HHI.CCPN ---
Subjective Remarks/Hospital Course 62 yo male. Date of admission 12/24/2017. Consultation 12/24/2017. Past medical history includes liver cirrhosis with recurrent upper GI bleeding. He was diagnosed 04/11 with liver cirrhosis. He states he quit drinking alcohol that time he was followed at [facility] for liver transplantation evaluation. April 2017, upper GI bleeding - distal Russell's esophagus and grade 1 varices. Stomach no bladder ulcers. Mucosa does not appear edematous duodenum. Status post angiogram of the celiac, SMA revealed no hemorrhagic focus identified. No further bleeding. Patient was again admitted 08/13 for upper GI bleed. EGD revealed grade 1-2 septal varices in no active bleeding. Gastric varices in the fundus just 2 cm GE junction actively squirting blood. Banding not possible so injected with 6 cc of epinephrine to stop the bleeding. Large clots and stomach. Remain intubated on octreotide and Protonix drips. Recommended if continued bleeding need to consider for TIPS. Most recently was admitted December 11, 2017 with alcohol toxicity. His has recently and he has drinking alcohol again. His alcohol levels currently 234. He presented today with upper GI bleeding. He is noted to be pancytopenic in with a white blood cell count of 3.8. Hemoglobin 7.1 and platelets of 30. INR is 1.9. AST is elevated. Alcohol level is 234. Patient received 6 L normal saline was started on a Protonix and octreotide drip. He remained hypotensive and peripheral vasopressors were started. Electrician Master was consulted along with GI. Due to the upper GI bleed decision was made to secure the airway with oral tracheal intubation and placement of central line to receive rapid transfusion. I discussed this with daughter Fabi Ndiaye [phone] and she is in agreement with aggressive plans at the present time. I described to her d- dimer nature of his current clinical situation and she wished to be made aware of any medical decisions that need to be made. Michelle did make her the healthcare proxy at this time. 12/25: Transfused 6 PRBCs, 2 FFP and 2 platelets overnight. Currently norepinephrine at 5 mcg/m and vasopressin 0.04 units per minute. Afebrile. Arousable on the ventilator. We'll transfuse FFP, cryoprecipitate and platelets again this AM 12/26 Patient remains intubated and sedation . On Octreotide and Protonix drips. In addition he is on Levopehd 1 saul and Vasopressin0.04. NGT ahd approx 200ml coffee ground gastric output, 12/27: No further bleeding noted. INR currently 1.7. Platelets to 28K. family to arrive late . Possibly transition to comfort care Monday, however request aggressive cares in the interim short of CPR. 12/28: Status post EGD today. Possible brief episode of esophageal varices resolved. Portal gastropathy noted. Hemoglobin stable. Remains intubated. 12/29: Remains intubated. No active bleeding. Hemoglobin stable. Will diurese today. Positive since admission. No bowel movement Subjective 12/30: Minimal diuresis overnight. Hemoglobin remained stable. No bowel movement. Ordered magnesium citrate per GI. Increasing bowel regimen from my standpoint. Diuresed with furosemide 40 mg IV twice a day. 12/31: Patient noted to be deeply sedated this a.m. Fentanyl infusion placed on hold. Hypernatremia slightly resolved, all IV infusions base changed to D5W instead of normal saline. INR noted to be elevated, 1.9 no active signs of bleeding will monitor possible transfusion of FFP. Noted chest x-ray is worsening now patient with pleural effusions will continue the Lasix. Free water flushes have been decreased. 01/01: Currently encephalopathic, patient off sedation greater than 24 hours. Patient remains on octreotide and Protonix infusions at this time per GI. Discussion with palliative care and patient's daughter decision to continue aggressive care and terms short of CPR to be continued .INR 2.1 continues to be elevated 2.1 this a.m. 1 unit FFP to be transfused. Platelet count 24,000, patient to receive 1 unit of platelets. No active signs of bleeding. Bands increasing blood cultures obtained. 01/02: Overnight the patient went into A. fib RVR requiring cardioversion 2. The patient was then placed on amiodarone infusion without bolusing. The patient continued in sinus tach early this a.m.. The patient received 1 unit of FFP for INR greater than 2.0 yesterday, and one 6 pack of platelets. Patient 's pulmonary status continues to worsen significant consolidations, sodium level downtrending ,IV fluid discontinued. Patient's mentation improved spontaneous eye opening did not follow commands. Propofol infusion reinitiated early this a.m.. 01/03: Afebrile. FiO2 requirement slightly decreased to 60%. Sputum culture revealed gram-negative rods antibiotic coverage expanded to Aztreonam, patient currently on Rocephin. ID has been consulted. ETT day 10, discussed with family the possibility of tracheostomy. Daughter has stated previously "he would not want a trach or PEG". Follow-up with palliative care to us define goals of care. No further cardiac arrhythmias, patient continues on amiodarone PO. 01/04: Afebrile. FiO2 requirements decreased to 50%. No acute events overnight. Electrolytes being repleted. Discussion with patient's daughter yesterday Fabi, plan for passionate withdrawal tentatively scheduled for Monday. Objective Vital Signs Date Time Temp Pulse Resp B/P (MAP) Pulse Ox O2 Delivery O2 Flow Rate FiO2 01/04/18 12:00 45 01/04/18 12:00 107 01/04/18 12:00 99.4 118/58 (78) 96 01/04/18 04:00 16 Intake and Output 01/04/18 01/04/18 01/05/18 08:00 16:00 00:00 Intake Total 808 ml 100 ml Output Total 950 ml Balance -142 ml 100 ml Result Diagram: 01/04/18 0450 01/04/18 0450 Imaging Last Impressions Chest X-Ray 12/29/17 06 Signed Impressions: Service Date/Time: Friday, December 29, 2017 03:52 - CONCLUSION: No significant change has occurred. Tyler Mahmood MD Abdomen X-Ray 12/29/17 0600 Signed Impressions: Service Date/Time: Friday, December 29, 2017 03:54 - CONCLUSION: Decreased bowel distention. Tyler Mahmood MD Liver Ultrasound 12/25/17 0000 Signed Impressions: Service Date/Time: Monday, December 25, 2017 09:17 - CONCLUSION: 1. Cirrhotic appearing liver with mild splenomegaly consistent with portal hypertension. The portal vein is patent with hepatopedal flow. 2. Gallbladder wall thickening with small amount of sludge and dominant gallstone. These findings are typically seen in patient's with chronic liver condition. 3. Incidental note of small bilateral pleural effusions. Jorge Roche MD Objective Remarks GENERAL: 62 -year-old male currently orotracheally intubated and sedated SKIN: Warm and dry. No rash HEAD: Atraumatic. Normocephalic. EYES: Pupils equal and round about 3 mm bilaterally and reactive. + scleral icterus. No injection or drainage. ENT: Blood from oral mucosa during intubation notice. Positive petechiae. NECK: Trachea midline. No JVD. CARDIOVASCULAR: Tachycardic rate and rhythm. S1, S2. No S4. RESPIRATORY: No accessory muscle use. Clear to auscultation. Breath sounds equal bilaterally. GASTROINTESTINAL: Abdomen slightly taut, nontender. Hypoactive bowel sounds are appreciated. MUSCULOSKELETAL: Extremities with 2+ B/L upper and lower extremity edema. No obvious deformities. NEUROLOGICAL: RASS -2. All sedation placed on hold for approximately 24 hours patient currently only withdraws to pain, . Previously, motor grossly within normal limits. Five out of 5 muscle strength in the arms and legs. Normal speech prior to intubation 12/24. Procedures 01/02: Cardioversion 2, with initiation of amiodarone infusion. Date of Insertion: Dec 24, 2017 Line: Central Venous Catheter Side: Left Location: Internal, Jugular A/P Assessment and Plan Neuro/Psych: EtOH intoxication Toxic metabolic encephalopathy secondary to elevated ammonia Propofol infusion reinitiated for sedation/analgesia while intubated Goal of RASS -2 Daily sedation vacation Ofirmev 1 g IV every 8 hours when necessary fever Upon admission ,EtOH level was 234. on vitamin bag daily for 3 days and switch to thiamine 100 mg IV daily on 12/27 Ammonia level 17 on 01/02. Continue rifaximin, and trend level Continue neurochecks per ICU protocol. CV: A. fib RVR 2/ Currently off all vasopressors. 11/30 NSS at 42 cc /hr discontinued 01/02 Goal keep mean arterial pressure greater than equal to 65 Placed on 40 mg IV twice a day in attempt to diurese 01/02-cardioversion 2, initiation of amiodarone infusion. Patient transitioned to by mouth amiodarone twice a day Resp: Acute hypoxemic respiratory failure History of loculated right pleural effusion status post right chest tube/Pleurx catheter [facility] 16/500/12/01/45 Ventilator bundle Albuterol/ipratropium aerosols every 6 hours with albuterol aerosols every 2 hours. Dyspnea Maintain head of bed at 30 01/01 CXR: Pleural effusions, chest x-ray worsening GI: Recurrent upper GI bleeding - negative gastroduodenal artery evaluation 05/13 History of esophageal varices - grade 1-2. Most recently epinephrine injected Portal gastropathy Portal hypertension Splenomegaly EtOH cirrhosis History of Alicia-Dyson tear History of Russell's esophagus Hyperammonia Hypoalbuminemia Elevated total bilirubin Melena Continue tube feeds Nutrahep at goal 60cc/hr 01/02 On pantoprazole drip at 8 mg an hour transitioned to twice a day Sandostatin drip at 25 g an hour discontinued 01/01 ceftriaxone 1 g daily for upper GI bleed GI following Dr. Marie. s/p EGD: Probable gastric varices, portal gastropathy and Russell;s esophagus, signed off 12/30 Continue lactulose 30 cc Q6 and Xifaxan 550 mill grams twice a day for elevated ammonia level. Trend ammonia levels Renal/: Mcdonald catheter for accurate I's and O's in a critically ill patient Discontinued IV fluids. 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 Hernandez and Narcisa for intermittent transfusions and Neupogen injections during prior hospitalizations Haptoglobin slightly low at 29. LDH normal. 01/01 FFP 1 unit, 1 unit of platelets to be transfused ID: Monitor for infection On ceftriaxone for upper GI bleed 01/01-obtain blood - NGTD sputum culture- gram-negative rods. Patient on aztreonam and Rocephin ID consulted MSK: PT evaluate and treat FEN Hypernatremia Electrolyte derangement Replace electrolytes per ICU electrolyte protocol Free water 100 every 6 hours 01/02 is continued 11/30 NSS 42 cc an hour Sodium level downtrending Access - Left IJ CVL day #12 place 12/24 Prophylaxis - GI - pantoprazole drip/octreotide drip - DVT - SCD/pharmacological prophylaxis contraindicated with upper GI bleed Palliative care is following-meeting held on 01/01 see palliative care note. Plan currently is to continue aggressive measures short of CPR. Dispo: Discussed with OCCUPATIONAL THERAPY PROGRAM DIRECTOR at bedside (Zara) and daughter Fabi. Discussed also with palliative care team, Hiral and Mrs. Patricia Wagoner, tentative plan for compassionate withdrawal Monday . Critical Care: my billing statement This patient remains critically ill with one or more organ systems which are or may become a threat to life. I have spent in excess of 30 minutes discontinuously in the care and management of this patient. This time is exclusive of procedures, and includes, but is not limited to, evaluation of the patient, review of the medical record, discussions with family, consultants, nursing staff, or respiratory therapy, and documentation in the medical record. Physician Delilah Solis MD Jan 04, 2018 12:59
[2018-01-04] MEDS: ARTIFICIAL TEARS OPTH SOLN 15 ML BTL EACH EYE SCH (14:27)
--- NOTE | 2018-01-04 14:41 | HHI.HCPN ---
Reason for visit a. To assist with evaluation and management of symptoms including: Encephalopathy, depression b. To assist medical decision maker(s) with: better understanding of current medical conditions; weighing benefits/burdens of medical treatment options; making medical treatment decisions. Subjective/Interval History Seen today to follow-up on goals and management. I was asked by nurse, Zara to speak with daughterFabi via phone when I arrived on unit. In speaking with Fabi she indicates the family had wanted to give the patient a few more days to determine if patient would make further improvement. She tells me the family has actually seen further decline (less coherent, increased jaundice). She states they are now considering transition to comfort with withdrawal of life support. Agreed to meet family when they arrive later today, per family request. Patient seen and examined in ICU. No family at bedside. Discussed with nurse. Patient does not arouse to voice or exam. Tmax 99.9. WBC 5.5, hemoglobin 9.5, hematocrit 27.8, platelets 25. Sodium 150. Creatinine 1.07. 01/01/18 blood cultures no growth in 3 days. Sputum + serratia marcescens/ gram negative rods. Chest xray stable with left pleural effusion and diffuse airspace consolidation. . Family/friend interactions Met with daughterFabi, siblings and other family members. Medical update provided. Family feels patient has not shown signs of clinical improvement. They feel he would not want continued life prolonging measures. They have requested to meet to discuss transition to comfort measures and compassionate withdrawal of life support. Family would like to proceed with withdrawal of life support on 01/05/18, will tentatively plan around 10am. Special Warfare Boat Operator Karolina has requested Wood Machinist provide last rights prior to withdrawal. Family will consider transfer to Hospice care center the day following withdrawal of life support if he survives. Declines hospice at this time. Palliative care will write orders for transition to comfort in AM. . Advance Directives Living Will: Copy in medical record Health Care Surrogate: Copy in medical record (reportedly, recently changed to assign his daughterFabi as his primary HCS and Rebekah Mendoza as his alternate. Trying to locate paperwork, completed at [facility] within last 1-2 weeks. ) Durable Power of Volunteer Recruiter: Copy in medical record Advance Directive Specifics Date completed: 04/22/06 Health Care Surrogate(s): By the telephone consent received from Melina Ndiaye and Emely Ndiaye, the patient's 2 younger daughters, they have ceded the decision making to their sister, Fabi, which is consistent with the wishes of the patient expressed by Rebekah Mendoza, the patient's DPOA and longtime caregiver, that the patient's most recent wish was that Fabi be the primary healthcare surrogate and Rebekah serve as the alternate. At this time the wheeze and agrees to serve as health care surrogate and is in contact with both of her sisters and Rebekah to assure that the patient's wishes, as he has expressed them to his friends and family, are honored. . Documented care wishes: Patient has completed a living will stating that in case he has a terminal, end- stage condition or a persistent vegetative state that he be allowed to without life-prolonging procedures, be given medication to alleviate pain and enhance comfort, not to be kept alive by ventilator's or other artificial life support nor to be tube fed or artificially hydrated to sustain life. . Significant change in goals: NO CODE. Plan for withdrawal of life support on 01/05/18 around 10am. . Objective Vital Signs Date Time Temp Pulse Resp B/P (MAP) Pulse Ox O2 Delivery O2 Flow Rate FiO2 01/04/18 14:00 101 01/04/18 12:00 45 01/04/18 12:00 107 01/04/18 12:00 99.4 107 118/58 (78) 96 01/04/18 11:07 97 45 01/04/18 11:00 104 114/58 (76) 97 01/04/18 10:00 103 01/04/18 10:00 103 109/59 (76) 96 01/04/18 09:00 105 103/55 (71) 96 01/04/18 08:00 99.9 96 90/53 (65) 95 01/04/18 08:00 96 01/04/18 08:00 45 01/04/18 07:38 96 45 01/04/18 07:00 109 109/67 (81) 94 01/04/18 06:00 104 01/04/18 06:00 45 01/04/18 04:29 98 45 01/04/18 04:00 104 01/04/18 04:00 99.4 96 16 92/54 (67) 96 01/04/18 02:37 100 45 01/04/18 02:00 104 01/04/18 00:06 97 45 01/04/18 00:00 45 01/04/18 00:00 99.3 108 18 135/65 (88) 96 01/04/18 00:00 100 01/03/18 22:06 96 45 01/03/18 22:00 117 01/03/18 20:00 104 01/03/18 20:00 45 01/03/18 20:00 99.3 104 16 113/59 (77) 95 01/03/18 19:45 98 45 01/03/18 18:00 99 01/03/18 16:00 50 01/03/18 16:00 96 01/03/18 16:00 99.5 96 103/53 (70) 96 01/03/18 15:55 96 50 Intake & Output 01/04/18 01/04/18 07:00 19:00 Intake Total 808 ml 100 ml Output Total 950 ml Balance -142 ml 100 ml Intake IV Total 319 ml 100 ml Tube Feeding 489 ml Output Urine Total 950 ml # Bowel Movements 1 Physical Exam CONSTITUTIONAL/GENERAL: This is an adequately nourished patient, in no apparent distress. TUBES/LINES/DRAINS: Left IJ CVL, ETT, NGT, Mcdonald EYES: eyes closed. CARDIOVASCULAR: Tachycardic rate and regular rhythm without murmurs, gallops, or rubs. RESPIRATORY/CHEST: Symmetric, unlabored respirations. Clear to auscultation. Breath sounds equal bilaterally. No wheezes, rales, or rhonchi. GASTROINTESTINAL: Abdomen soft, nontender, hypoactive bowel sounds. GENITOURINARY: Without palpable bladder distension. Mcdonald catheter in place. MUSCULOSKELETAL: Extremities with edema. No mottling or clubbing. NEUROLOGICAL: Intubated, unresponsive. PSYCHIATRIC: Encephalopathic. . Diagnostic Tests Laboratory Laboratory Tests Test 01/01/18 15:37 01/02/18 04:40 01/02/18 05:17 01/02/18 16:02 Urine Color DARK-YELLOW (YELLW/STRAW) Urine Turbidity HAZY (CLEAR) Urine pH 5.0 (5.0-8.5) Urine Specific [place] 1.013 (1.002-1.035) Urine Protein NEG mg/dL (NEG-TRACE) Urine Glucose (UA) NEG mg/dL (NEG) Urine Ketones NEG mg/dL (NEG) Urine Occult Blood MOD (NEG) Urine Nitrite NEG (NEG) Urine Bilirubin SMALL (NEG) Urine Urobilinogen LESS THAN 2.0 MG/DL (LESS Urine Leukocyte Esterase NEG (NEG) Urine RBC 164 /hpf (0-3) Urine WBC 1 /hpf (0-5) Urine Squamous Epithelial Cells <1 /hpf (0-5) Urine Hyaline Casts 25 /lpf (RARE) Urine Mucus FEW /lpf (OCC) Microscopic Urinalysis Comment CULT NOT INDICATED White Blood Count 6.5 TH/MM3 (4.0-11.0) Red Blood Count 2.93 MIL/MM3 (4.50-5.90) Hemoglobin 9.4 GM/DL (13.0-17.0) Hematocrit 27.7 % (39.0-51.0) Mean Corpuscular Volume 94.6 FL (80.0-100.0) Mean Corpuscular Hemoglobin 32.2 PG (27.0-34.0) Mean Corpuscular Hemoglobin Concent 34.1 % (32.0-36.0) Red Cell Distribution Width 23.7 % (11.6-17.2) Platelet Count 36 TH/MM3 (150-450) Mean Platelet Volume 7.7 FL (7.0-11.0) Neutrophils (%) (Auto) 86.5 % (16.0-70.0) Lymphocytes (%) (Auto) 4.7 % (9.0-44.0) Monocytes (%) (Auto) 6.8 % (0.0-8.0) Eosinophils (%) (Auto) 1.7 % (0.0-4.0) Basophils (%) (Auto) 0.3 % (0.0-2.0) Neutrophils # (Auto) 5.7 TH/MM3 (1.8-7.7) Lymphocytes # (Auto) 0.3 TH/MM3 (1.0-4.8) Monocytes # (Auto) 0.4 TH/MM3 (0-0.9) Eosinophils # (Auto) 0.1 TH/MM3 (0-0.4) Basophils # (Auto) 0.0 TH/MM3 (0-0.2) CBC Comment AUTO DIFF Differential Total Cells Counted 100 Neutrophils % (Manual) 63 % (16-70) Band Neutrophils % 30 % (0-6) Lymphocytes % 2 % (9-44) Monocytes % 3 % (0-8) Eosinophils % 1 % (0-4) Neutrophils # (Manual) 6.1 TH/MM3 (1.8-7.7) Metamyelocytes 1 % (0-1) Differential Comment FINAL DIFF MANUAL Platelet Estimate LOW (NORMAL) Platelet Morphology Comment ENLARGED (NORMAL) Ovalocytes 1+ (NORMAL) Blood Urea Nitrogen 22 MG/DL (7-18) Creatinine 0.99 MG/DL (0.60-1.30) Random Glucose 120 MG/DL (74-106) Total Protein 5.7 GM/DL (6.4-8.2) Albumin 2.5 GM/DL (3.4-5.0) Calcium Level 8.3 MG/DL (8.5-10.1) Phosphorus Level 2.6 MG/DL (2.5-4.9) Magnesium Level 2.1 MG/DL (1.5-2.5) Alkaline Phosphatase 80 U/L (45-117) Aspartate Amino Transf (AST/SGOT) 47 U/L (15-37) Alanine Aminotransferase (ALT/SGPT) 25 U/L (12-78) Total Bilirubin 7.7 MG/DL (0.2-1.0) Sodium Level 147 MEQ/L (136-145) Potassium Level 3.2 MEQ/L (3.5-5.1) 3.7 MEQ/L (3.5-5.1) Chloride Level 112 MEQ/L (98-107) Carbon Dioxide Level 29.8 MEQ/L (21.0-32.0) Anion Gap 5 MEQ/L (5-15) Estimat Glomerular Filtration Rate 77 ML/MIN (>89) Blood Gas Puncture Site RT RADIAL Blood Gas Patient Temperature 98.6 Blood Gas HCO3 27 mmol/L (22-26) Blood Gas Base Excess 2.5 mmol/L (-2-2) Blood Gas Oxygen Saturation 94 % (90-100) Arterial Blood pH 7.39 (7.380-7.420) Arterial Blood Partial Pressure CO2 46 mmHg (38-42) Arterial Blood Partial Pressure O2 92 mmHg (61-120) Arterial Blood Oxygen Content 13.2 Vol % (12.0-20.0) Arterial Blood Carboxyhemoglobin 1.3 % (0-4) Arterial Blood Methemoglobin 1.5 % (0-2) Blood Gas Hemoglobin 9.9 G/DL (12.0-16.0) Oxygen Delivery Device VENT Blood Gas Ventilator Setting SEE COMMENTS Blood Gas Inspired Oxygen 80 % Test 01/03/18 05:37 01/03/18 05:57 01/04/18 04:50 Blood Gas Puncture Site LT RADIAL Blood Gas Patient Temperature 98.6 Blood Gas HCO3 28 mmol/L (22-26) Blood Gas Base Excess 3.5 mmol/L (-2-2) Blood Gas Oxygen Saturation 92 % (90-100) Arterial Blood pH 7.40 (7.380-7.420) Arterial Blood Partial Pressure CO2 47 mmHg (38-42) Arterial Blood Partial Pressure O2 78 mmHg (61-120) Arterial Blood Oxygen Content 13.5 Vol % (12.0-20.0) Arterial Blood Carboxyhemoglobin 1.3 % (0-4) Arterial Blood Methemoglobin 1.5 % (0-2) Blood Gas Hemoglobin 10.4 G/DL (12.0-16.0) Oxygen Delivery Device VENTILATOR Blood Gas Ventilator Setting PRVC16/500/1.0/+8 Blood Gas Inspired Oxygen 60 % Blood Urea Nitrogen 23 MG/DL (7-18) 22 MG/DL (7-18) Creatinine 1.08 MG/DL (0.60-1.30) 1.07 MG/DL (0.60-1.30) Random Glucose 132 MG/DL (74-106) 176 MG/DL (74-106) Total Protein 5.6 GM/DL (6.4-8.2) Albumin 2.2 GM/DL (3.4-5.0) Calcium Level 8.2 MG/DL (8.5-10.1) 7.8 MG/DL (8.5-10.1) Phosphorus Level 2.2 MG/DL (2.5-4.9) 2.6 MG/DL (2.5-4.9) Magnesium Level 2.3 MG/DL (1.5-2.5) 2.1 MG/DL (1.5-2.5) Alkaline Phosphatase 80 U/L (45-117) Aspartate Amino Transf (AST/SGOT) 47 U/L (15-37) Alanine Aminotransferase (ALT/SGPT) 23 U/L (12-78) Total Bilirubin 7.4 MG/DL (0.2-1.0) Sodium Level 150 MEQ/L (136-145) 150 MEQ/L (136-145) Potassium Level 3.2 MEQ/L (3.5-5.1) 2.7 MEQ/L (3.5-5.1) Chloride Level 113 MEQ/L (98-107) 113 MEQ/L (98-107) Carbon Dioxide Level 29.9 MEQ/L (21.0-32.0) 29.7 MEQ/L (21.0-32.0) Anion Gap 7 MEQ/L (5-15) 7 MEQ/L (5-15) Estimat Glomerular Filtration Rate 69 ML/MIN (>89) 70 ML/MIN (>89) Ammonia LESS THAN 10 MCMOL/L White Blood Count 5.5 TH/MM3 (4.0-11.0) Red Blood Count 2.93 MIL/MM3 (4.50-5.90) Hemoglobin 9.5 GM/DL (13.0-17.0) Hematocrit 27.8 % (39.0-51.0) Mean Corpuscular Volume 94.8 FL (80.0-100.0) Mean Corpuscular Hemoglobin 32.5 PG (27.0-34.0) Mean Corpuscular Hemoglobin Concent 34.3 % (32.0-36.0) Red Cell Distribution Width 23.8 % (11.6-17.2) Platelet Count 25 TH/MM3 (150-450) Mean Platelet Volume 8.4 FL (7.0-11.0) Neutrophils (%) (Auto) 82.3 % (16.0-70.0) Lymphocytes (%) (Auto) 6.4 % (9.0-44.0) Monocytes (%) (Auto) 6.5 % (0.0-8.0) Eosinophils (%) (Auto) 4.1 % (0.0-4.0) Basophils (%) (Auto) 0.7 % (0.0-2.0) Neutrophils # (Auto) 4.5 TH/MM3 (1.8-7.7) Lymphocytes # (Auto) 0.4 TH/MM3 (1.0-4.8) Monocytes # (Auto) 0.4 TH/MM3 (0-0.9) Eosinophils # (Auto) 0.2 TH/MM3 (0-0.4) Basophils # (Auto) 0.0 TH/MM3 (0-0.2) CBC Comment AUTO DIFF Differential Total Cells Counted 100 Neutrophils % (Manual) 59 % (16-70) Band Neutrophils % 26 % (0-6) Lymphocytes % 7 % (9-44) Monocytes % 1 % (0-8) Eosinophils % 3 % (0-4) Basophils % 2 % (0-2) Neutrophils # (Manual) 4.8 TH/MM3 (1.8-7.7) Metamyelocytes 2 % (0-1) Nucleated Red Blood Cells 1 /100 WBC (0-0) Differential Comment FINAL DIFF MANUAL Toxic Granulation 1+ (NORMAL) Dohle Bodies PRESENT (NONE SEEN) Platelet Estimate LOW (NORMAL) Platelet Morphology Comment NORMAL (NORMAL) Result Diagram: 01/04/18 0450 01/04/18 0450 Microbiology Microbiology Date/Time Source Procedure Growth Status 01/01/18 18:20 Blood Peripheral Aerobic Blood Culture - Preliminary NO GROWTH IN 3 DAYS Resulted 01/01/18 18:20 Blood Peripheral Anaerobic Blood Culture - Preliminary NO GROWTH IN 3 DAYS Resulted 01/01/18 18:08 Blood Peripheral Aerobic Blood Culture - Preliminary NO GROWTH IN 3 DAYS Resulted 01/01/18 18:08 Blood Peripheral Anaerobic Blood Culture - Preliminary NO GROWTH IN 3 DAYS Resulted 01/01/18 15:35 Sputum Endotracheal Acid Fast Stain - Final NO ACID FAST BACILLI SEEN Resulted 01/01/18 15:35 Sputum Endotracheal Mycobacterial Culture Pending Resulted 01/01/18 14:58 Sputum Endotracheal Gram Stain - Final Resulted 01/01/18 14:58 Sputum Culture - Preliminary Serratia Marcescens Gram Negative Dimitrios Resulted Imaging Last Impressions Chest X-Ray 01/04/18 0600 Signed Impressions: Service Date/Time: December 03:18 - CONCLUSION: Stable chest x-ray with left pleural effusion and diffuse bilateral airspace consolidation. Carlos Morales MD Abdomen X-Ray 12/30/17 0000 Signed Impressions: Service Date/Time: Saturday, December 30, 2017 13:16 - CONCLUSION: Nonobstructive bowel gas pattern. Jerardo Alejandro MD Liver Ultrasound 12/25/17 0000 Signed Impressions: Service Date/Time: Monday, December 25, 2017 09:17 - CONCLUSION: 1. Cirrhotic appearing liver with mild splenomegaly consistent with portal hypertension. The portal vein is patent with hepatopedal flow. 2. Gallbladder wall thickening with small amount of sludge and dominant gallstone. These findings are typically seen in patient's with chronic liver condition. 3. Incidental note of small bilateral pleural effusions. Jorge Roche MD . Procedures Orotracheal intubation 12/24/17 Left IJ central line placement 12/24/18 . Assessment and Plan Disease Oriented Problem List: (1) Abnormal LFTs (2) Septic shock (3) Hepatic failure (4) UGI bleed (5) Thrombocytopenia Symptom Scale: (1) Vomiting 0-10 Scale: Unable to quantify (patient intubated and sedated.) (2) Depression 0-10 Scale: Unable to quantify (patient intubated and sedated.) Pertinent Non-Medical Issues Psychosocial:Born in [place] but lived in [place] for many years. He has one sister who lives in [place]. He has been living in [place] for over 25 years, currently resides in [place]. He has 3 daughters, Fabi, who lives in [place], Melina who lives in [place] and Emely who lives in [place]. His recently . Spiritual: He is Che[employer]ism and sacraments of the sick have been requested. Legal: He has a previous healthcare surrogate naming his late and his daughter Melina as healthcare surrogates. He has reportedly recently completed new advanced directives naming his daughter Fabi as his primary healthcare surrogate and Rebekah Mendoza as his alternate. We are attempting to locate that paperwork through [employer] information management, however in the meantime, I have spoken with all 3 daughters and Ms. Hinesley, all who agree that Fabi should be the decision-maker, as they know that is consistent with their father's wishes. Ethical issues impacting care: None noted. . Important Contacts Daughter: Fabi , Daughter: Melina Daughter: Emely Friend: Rebekah Mendoza, his reported DPOA . Prognosis His prognosis is poor. He is currently on mechanical ventilator requiring vasopressor support for hemodynamic stability. He has a known history of end- stage liver disease with esophageal varices and has recently resumed heavy alcohol intake after nearly a year of abstinence. He had previously been pursuing a liver transplant at the request of his late , but since her , he has stated to his daughters that he did not plan to go forth with the transplant. He has pancytopenia and coagulopathy. He is at high risk for continued bleeding and further complications. . Code Status: No Code (patient remains intubated but family would not want reintubation or cardiac resuscitation.) Plan * Legal decision maker: At this time his previous healthcare surrogate names his late as his primary and his daughter Melina as his secondary healthcare surrogate. There is reportedly a new healthcare surrogate completed but not available to us at this time. By [place] statutes we would abide by the previous healthcare surrogate having Melina as the decision-maker. Melina is aware that a recent descent with her father had caused him to change his mind and she and her sister Emely have requested that decision making be done by their sister Fabi, as they state that that is consistent with their father's wishes. * NO CODE * Goals: Plan for withdrawal of life support on 01/05/18 around 10am. Palliative care will write orders for transition to comfort in AM. Wood Machinist expected to visit 01/05/18 10am prior to withdrawal. Declines hospice at this time, will consider day after withdrawal if he survives. SYMPTOMS: * Encephalopathy: Multifactorial to include chronically elevated ammonia level, metabolic causes, end-stage liver disease. At this time he has been off sedation for greater than 24 hours and is not consistently responding to commands. Family wishes to allow further time for clearance medications prior to determining need for withdrawal of ventilatory support. Not improving. * Depression: Patient has been significantly depressed since the loss of his and had resumed heavy alcohol use. He told his daughter believes that he did not plan to pursue liver transplant and that he did not "wish to sober" . I have contacted the ip/mosaic technician to arrange a chief of party visit for sacraments of the sick at the family's request and will continue to pursue social support if he stabilizes clinically. His recently while on hospice, making him eligible for hospice bereavement services if clinically stabilizes. His family is here from [place] and [place], he is not responding to family. Palliative care will continue to follow the patient during hospital course as condition evolves, to assist patient/decision-maker with understanding of their medical conditions, weighing benefits/burdens of treatment options, for clarification of goals of treatment. Additionally will assist with any symptoms of palliative concern. . Attestation To help prompt me to consider important information that might be impacting today's encounter and assessment, information from prior notes written by myself or my colleagues may have been "brought forward" into today's note. My signature on this note, however, is an attestation that I personally performed the exam, history, and/or decision-making noted today, and, unless otherwise indicated, the interactions with patient, family, and staff as well as the review of records all occurred today. I also attest that the listed assessment and stated plan reflect my best clinical judgment today based on the combination of historical information, prior notes, and today's exam/ interactions. When time spent is documented, it refers only to time spent today by the signer, or if indicated, combined time spent today by collaborating physician/nurse practitioner. Jeaneth Wagoner Jan 04, 2018 14:41
[2018-01-04] MEDS: cefTRIAXone INJ 1,000 MG in SODIUM CHLORIDE 0.9% INJ 100 ML IV SCH (21:48)
[2018-01-05] VITALS (12 sets, daily range): BP systolic 95–103; BP diastolic 55–68; PULSE 94–108; RESP 16–24; TEMP 98.3–100.2; O2SAT 75–99
[2018-01-05 05:05] LABS: HEMATOCRIT 26.2 % (39.0-51.0); HEMOGLOBIN 9.1 GM/DL (13.0-17.0); MEAN CELL VOLUME 95.3 FL (80.0-100.0); MEAN CORPUSCULAR HGB CONC 34.6 % (32.0-36.0); MEAN PLATELET VOLUME 10.1 FL (7.0-11.0); PLATELET COUNT 26 TH/MM3 (150-450); RED BLOOD COUNT 2.75 MIL/MM3 (4.50-5.90); RED CELL DISTRIBUTION WIDTH 24.2 % (11.6-17.2); WHITE BLOOD COUNT 5.3 TH/MM3 (4.0-11.0)
--- NOTE | 2018-01-05 05:19 | RADRPT ---
EXAM DATE/TIME: 01/05/2018 03:53 [facility] COMPARISON: No previous studies available for comparison. INDICATIONS : Evaluate for respiratory failure. MEDICAL HISTORY : Hypertension. Renal calculi. Cirrhosis. Esophageal varices. SURGICAL HISTORY : Paracentesis. ENCOUNTER: Subsequent ACUITY: 2 weeks PAIN SCORE: Non-responsive. LOCATION: chest FINDINGS: A single view of the chest demonstrates endotracheal tube in good position. Left central line in supe rior vena cava. Bilateral airspace disease and pleural effusions similar to January 04. Heart size wi thin normal limits. No pneumothorax. CONCLUSION: 1. Stable exam compared with January 04. Endotracheal tube and nasogastric tube in good position. Lef t central line in superior vena cava. Toño Glez MD on January 05, 2018 at 5:17 Board Certified Radiologist. This report was verified electronically.
[2018-01-05 05:24] LABS: BICARBONATE 30.8 MEQ/L (21.0-32.0); CALCIUM 7.8 MG/DL (8.5-10.1); CREATININE 1.05 MG/DL (0.60-1.30); MAGNESIUM 1.9 MG/DL (1.5-2.5); PHOSPHORUS 2.5 MG/DL (2.5-4.9)
[2018-01-05] MEDS: AZTREONAM INJ 2,000 MG in SODIUM CHLORIDE 0.9% INJ 100 ML IV SCH (06:34)
[2018-01-05] MEDS: PROPOFOL 1000 MG/100 ML INJ 100 ML IV PRN (06:35)
[2018-01-05] MEDS: SENNOSIDES SYRUP 8.8 MG/5 ML CUP NG SCH (08:08)
[2018-01-05] MEDS: RIFAXIMIN 550 MG TAB PO SCH (08:08)
[2018-01-05] MEDS: POLYETHYLENE GLYCOL 17 GM PKG NG SCH (08:10)
[2018-01-05] MEDS: LACTULOSE SYRUP 20 GM/30 ML CUP PO SCH ×2 (08:10→08:20)
[2018-01-05] MEDS: DOCUSATE SODIUM 100 MG/10 ML UDC PO SCH (08:10)
[2018-01-05] MEDS: FUROSEMIDE 40 MG/4 ML VIAL IV PUSH SCH (08:10)
[2018-01-05] MEDS: AMIODARONE 200 MG TAB PO SCH (08:27)
[2018-01-05] MEDS: PANTOPRAZOLE SODIUM 40 MG VIAL IV PUSH SCH (08:27)
[2018-01-05] MEDS: CHLORHEXIDINE 0.12% (ORAL KIT) 15 ML CUP MT SCH (08:27)
[2018-01-05] MEDS: THIAMINE HCL 100 MG TAB OG-TUBE SCH (08:27)
[2018-01-05] MEDS: SODIUM CHLORIDE 0.9% FLUSH 10 ML FLUSH IV FLUSH SCH ×2 (08:28)
--- NOTE | 2018-01-05 09:57 | HHI.CCPN ---
Subjective Remarks/Hospital Course 62 yo male. Date of admission 12/24/2017. Consultation 12/24/2017. Past medical history includes liver cirrhosis with recurrent upper GI bleeding. He was diagnosed 04/11 with liver cirrhosis. He states he quit drinking alcohol that time he was followed at [facility] for liver transplantation evaluation. April 2017, upper GI bleeding - distal Russell's esophagus and grade 1 varices. Stomach no bladder ulcers. Mucosa does not appear edematous duodenum. Status post angiogram of the celiac, SMA revealed no hemorrhagic focus identified. No further bleeding. Patient was again admitted 08/13 for upper GI bleed. EGD revealed grade 1-2 septal varices in no active bleeding. Gastric varices in the fundus just 2 cm GE junction actively squirting blood. Banding not possible so injected with 6 cc of epinephrine to stop the bleeding. Large clots and stomach. Remain intubated on octreotide and Protonix drips. Recommended if continued bleeding need to consider for TIPS. Most recently was admitted December 11, 2017 with alcohol toxicity. His has recently and he has drinking alcohol again. His alcohol levels currently 234. He presented today with upper GI bleeding. He is noted to be pancytopenic in with a white blood cell count of 3.8. Hemoglobin 7.1 and platelets of 30. INR is 1.9. AST is elevated. Alcohol level is 234. Patient received 6 L normal saline was started on a Protonix and octreotide drip. He remained hypotensive and peripheral vasopressors were started. Emergency Worker was consulted along with GI. Due to the upper GI bleed decision was made to secure the airway with oral tracheal intubation and placement of central line to receive rapid transfusion. I discussed this with daughter Fabi Ndiaye [phone] and she is in agreement with aggressive plans at the present time. I described to her d- dimer nature of his current clinical situation and she wished to be made aware of any medical decisions that need to be made. Michelle did make her the healthcare proxy at this time. 12/25: Transfused 6 PRBCs, 2 FFP and 2 platelets overnight. Currently norepinephrine at 5 mcg/m and vasopressin 0.04 units per minute. Afebrile. Arousable on the ventilator. We'll transfuse FFP, cryoprecipitate and platelets again this AM 12/26 Patient remains intubated and sedation . On Octreotide and Protonix drips. In addition he is on Levopehd 1 saul and Vasopressin0.04. NGT ahd approx 200ml coffee ground gastric output, 12/27: No further bleeding noted. INR currently 1.7. Platelets to 28K. family to arrive late . Possibly transition to comfort care Monday, however request aggressive cares in the interim short of CPR. 12/28: Status post EGD today. Possible brief episode of esophageal varices resolved. Portal gastropathy noted. Hemoglobin stable. Remains intubated. 12/29: Remains intubated. No active bleeding. Hemoglobin stable. Will diurese today. Positive since admission. No bowel movement Subjective 12/30: Minimal diuresis overnight. Hemoglobin remained stable. No bowel movement. Ordered magnesium citrate per GI. Increasing bowel regimen from my standpoint. Diuresed with furosemide 40 mg IV twice a day. 12/31: Patient noted to be deeply sedated this a.m. Fentanyl infusion placed on hold. Hypernatremia slightly resolved, all IV infusions base changed to D5W instead of normal saline. INR noted to be elevated, 1.9 no active signs of bleeding will monitor possible transfusion of FFP. Noted chest x-ray is worsening now patient with pleural effusions will continue the Lasix. Free water flushes have been decreased. 01/01: Currently encephalopathic, patient off sedation greater than 24 hours. Patient remains on octreotide and Protonix infusions at this time per GI. Discussion with palliative care and patient's daughter decision to continue aggressive care and terms short of CPR to be continued .INR 2.1 continues to be elevated 2.1 this a.m. 1 unit FFP to be transfused. Platelet count 24,000, patient to receive 1 unit of platelets. No active signs of bleeding. Bands increasing blood cultures obtained. 01/02: Overnight the patient went into A. fib RVR requiring cardioversion 2. The patient was then placed on amiodarone infusion without bolusing. The patient continued in sinus tach early this a.m.. The patient received 1 unit of FFP for INR greater than 2.0 yesterday, and one 6 pack of platelets. Patient 's pulmonary status continues to worsen significant consolidations, sodium level downtrending ,IV fluid discontinued. Patient's mentation improved spontaneous eye opening did not follow commands. Propofol infusion reinitiated early this a.m.. 01/03: Afebrile. FiO2 requirement slightly decreased to 60%. Sputum culture revealed gram-negative rods antibiotic coverage expanded to Aztreonam, patient currently on Rocephin. ID has been consulted. ETT day 10, discussed with family the possibility of tracheostomy. Daughter has stated previously "he would not want a trach or PEG". Follow-up with palliative care to us define goals of care. No further cardiac arrhythmias, patient continues on amiodarone PO. 01/04: Afebrile. FiO2 requirements decreased to 50%. No acute events overnight. Electrolytes being repleted. Discussion with patient's daughter yesterday Fabi, plan for passionate withdrawal tentatively scheduled for Monday. 01/05: Remains intubated. Family planning on terminal withdrawal and comfort measures today. D/W palliative care Objective Vital Signs Date Time Temp Pulse Resp B/P (MAP) Pulse Ox O2 Delivery O2 Flow Rate FiO2 01/05/18 08:00 98.3 94 16 102/68 (79) 93 01/05/18 07:15 40 Intake and Output 01/05/18 01/05/18 01/06/18 08:00 16:00 00:00 Intake Total 878 ml Output Total 1000 ml Balance -122 ml Result Diagram: 01/05/18 0405 01/05/18 0405 Imaging Last Impressions Chest X-Ray 12/29/17 06 Signed Impressions: Service Date/Time: Friday, December 29, 2017 03:52 - CONCLUSION: No significant change has occurred. Tyler Mahmood MD Abdomen X-Ray 12/29/17 0600 Signed Impressions: Service Date/Time: Friday, December 29, 2017 03:54 - CONCLUSION: Decreased bowel distention. Tyler Mahmood MD Liver Ultrasound 12/25/17 0000 Signed Impressions: Service Date/Time: Monday, December 25, 2017 09:17 - CONCLUSION: 1. Cirrhotic appearing liver with mild splenomegaly consistent with portal hypertension. The portal vein is patent with hepatopedal flow. 2. Gallbladder wall thickening with small amount of sludge and dominant gallstone. These findings are typically seen in patient's with chronic liver condition. 3. Incidental note of small bilateral pleural effusions. Jorge Roche MD Objective Remarks GENERAL: 62 -year-old male currently orotracheally intubated and sedated SKIN: Warm and dry. No rash HEAD: Atraumatic. Normocephalic. EYES: Pupils equal and round.. ENT: Blood from oral mucosa during intubation notice. Positive petechiae. NECK: Trachea midline. No JVD. CARDIOVASCULAR: Regular rate and rhythm. S1, S2. No S4. RESPIRATORY: No accessory muscle use. Clear to auscultation. Breath sounds equal bilaterally. GASTROINTESTINAL: Abdomen taut, distended. Hypoactive bowel sounds are appreciated. MUSCULOSKELETAL: Extremities with 2+ B/L upper and lower extremity edema. No obvious deformities. NEUROLOGICAL: Intubated sedated, withdraws to pain. Procedures 01/02: Cardioversion 2, with initiation of amiodarone infusion. Date of Insertion: Dec 24, 2017 Line: Central Venous Catheter Side: Left Location: Internal, Jugular A/P Assessment and Plan Neuro/Psych: EtOH intoxication Toxic metabolic encephalopathy secondary to elevated ammonia Propofol infusion reinitiated for sedation/analgesia while intubated Goal of RASS -2 Upon admission ,EtOH level was 234. on vitamin bag daily for 3 days and switch to thiamine 100 mg IV daily on 12/27 Ammonia level 17 on 01/02. Continue rifaximin, and trend level Continue neurochecks per ICU protocol. CV: A. fib RVR 2/3 Currently off all vasopressors. Goal keep mean arterial pressure greater than equal to 65 Placed on 40 mg IV twice a day in attempt to diurese 01/02-cardioversion 2, initiation of amiodarone infusion. Patient transitioned to by mouth amiodarone twice a day Resp: Acute hypoxemic respiratory failure History of loculated right pleural effusion status post right chest tube/Pleurx catheter [facility] 16500/12/01/44. Ventilator bundle Albuterol/ipratropium aerosols every 6 hours with albuterol aerosols every 2 hours. Dyspnea Maintain head of bed at 30 GI: Recurrent upper GI bleeding - negative gastroduodenal artery evaluation 05/13 History of esophageal varices - grade 1-2. Most recently epinephrine injected Portal gastropathy Portal hypertension Splenomegaly EtOH cirrhosis History of Alicia-Dyson tear History of Russell's esophagus Hyperammonia Hypoalbuminemia Elevated total bilirubin Melena Continue tube feeds Nutrahep at goal 60cc/hr 01/02 On pantoprazole drip at 8 mg an hour transitioned to twice a day Sandostatin drip at 25 g an hour discontinued 01/01 ceftriaxone 1 g daily for upper GI bleed GI following Dr. Marie. s/p EGD: Probable gastric varices, portal gastropathy and Russell;s esophagus, signed off 12/30 Continue lactulose 30 cc Q6 and Xifaxan 550 mill grams twice a day for elevated ammonia level. Renal/: Mcdonald catheter for accurate I's and O's in a critically ill patient Discontinued IV fluids. 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 Hernandez and Narcisa for intermittent transfusions and Neupogen injections during prior hospitalizations Haptoglobin slightly low at 29. LDH normal. 01/01 FFP 1 unit, 1 unit of platelets to be transfused ID: Monitor for infection On ceftriaxone for upper GI bleed 01/01-obtain blood - NGTD sputum culture- gram-negative rods. Patient on aztreonam and Rocephin MSK: PT evaluate and treat FEN Hypernatremia Electrolyte derangement Replace electrolytes per ICU electrolyte protocol Free water 100 every 6 hours 01/02 is continued 11/30 NSS 42 cc an hour Sodium level downtrending Access - Left IJ CVL placed 12/24 Prophylaxis - GI - pantoprazole drip/octreotide drip - DVT - SCD/pharmacological prophylaxis contraindicated with upper GI bleed Palliative care is following-meeting held on 01/01 see palliative care note. Plan currently is to continue aggressive measures short of CPR. Dispo: Discussed with STUDENT ASSISTANT at bedside (Zara) and daughter Fabi. Discussed also with palliative care team, Hiral and . Patricia Wagoner, tentative plan for compassionate withdrawal Monday . 01/05/18: Discussed with palliative care. Plan for terminal withdrawal today. Devaughn Gonzalez MD Jan 05, 2018 09:57
--- NOTE | 2018-01-05 10:18 | HHI.HCPN ---
Reason for visit a. To assist with evaluation and management of symptoms including: Encephalopathy, depression b. To assist medical decision maker(s) with: better understanding of current medical conditions; weighing benefits/burdens of medical treatment options; making medical treatment decisions. Subjective/Interval History Seen today to evaluate symptom management and goals care. Family contacted 01/04 several times to discuss withdrawal of ventilator support. Anticipatory guidance was again reviewed with the daughter, Fabi. Plan was made to meet at the hospital at 10 AM for medication review, consent signing and discussion with attending and consulting physicians. Patient seen in the intensive care unit. Vital signs are stable, blood pressure 102/68, heart rate 97, respiratory rate 16, oxygen saturation 93% on 40 % FiO2. T-MAX 100.2. Laboratory studies show WBC 5.3, Hgb 9.1, HCT 26.2, PLT 26, sodium 150, potassium 2.7, BUN 23, creatinine 1.05. Withdraws to pain in all extremities, unresponsive on ventilator. . Family/friend interactions Discussed with the consulting physician, Dr. Brito, attending physician, Dr. Gonzalez, who both agree that further aggressive care will not improve patient's condition. The family agrees that he has now met the conditions that he described in his living will has be unacceptable to him and wished to go forth with compassionate withdrawal of ventilator support. Awaiting the arrival of the [facility] prior to proceeding. . Advance Directives Living Will: Copy in medical record Health Care Surrogate: Copy in medical record (reportedly, recently changed to assign his daughter, Fabi as his primary HCS and Rebekah Mendoza as his alternate. Trying to locate paperwork, completed at [employer] within last 1-2 weeks. ) Durable Power of Publicity Agent: Copy in medical record Advance Directive Specifics Date completed: 04/22/06 Health Care Surrogate(s): By the telephone consent received from Melina Ndiaye and Emely Ndiaye, the patient's 2 younger daughters, they have ceded the decision making to their sister, Fabi, which is consistent with the wishes of the patient expressed by Rebekah Mendoza, the patient's DPOA and longtime caregiver, that the patient's most recent wish was that Fabi be the primary healthcare surrogate and Rbeekah serve as the alternate. At this time the wheeze and agrees to serve as health care surrogate and is in contact with both of her sisters and Rebekah to assure that the patient's wishes, as he has expressed them to his friends and family, are honored. . Documented care wishes: Patient has completed a living will stating that in case he has a terminal, end- stage condition or a persistent vegetative state that he be allowed to without life-prolonging procedures, be given medication to alleviate pain and enhance comfort, not to be kept alive by ventilator's or other artificial life support nor to be tube fed or artificially hydrated to sustain life. . Objective Vital Signs Date Time Temp Pulse Resp B/P (MAP) Pulse Ox O2 Delivery O2 Flow Rate FiO2 01/05/18 08:00 98.3 94 16 102/68 (79) 93 01/05/18 08:00 97 01/05/18 07:15 99 40 01/05/18 06:00 97 01/05/18 04:24 95 40 01/05/18 04:00 97 01/05/18 04:00 40 01/05/18 04:00 100.0 97 20 95/55 (68) 92 01/05/18 02:00 104 01/05/18 01:15 95 40 01/05/18 00:00 45 01/05/18 00:00 104 01/05/18 00:00 100.2 97 20 95/55 (68) 92 01/04/18 22:30 99 40 01/04/18 22:00 104 01/04/18 20:00 45 01/04/18 20:00 78 01/04/18 20:00 01/04/18 20:00 99.4 78 22 110/55 (73) 98 01/04/18 19:19 99 45 01/04/18 18:00 101 98/56 (70) 93 01/04/18 18:00 101 01/04/18 17:00 100 101/53 (69) 96 01/04/18 16:00 45 01/04/18 16:00 100.0 103 101/54 (70) 96 01/04/18 16:00 103 01/04/18 15:17 94 45 01/04/18 15:00 100 95/51 (66) 96 01/04/18 14:00 101 01/04/18 14:00 101 96/54 (68) 97 01/04/18 13:00 101 103/55 (71) 96 01/04/18 12:00 45 01/04/18 12:00 107 01/04/18 12:00 99.4 107 118/58 (78) 96 01/04/18 11:07 97 45 01/04/18 11:00 104 114/58 (76) 97 01/04/18 10:00 103 01/04/18 10:00 103 109/59 (76) 96 Intake & Output 01/05/18 01/05/18 07:00 19:00 Intake Total 878 ml Output Total 1000 ml Balance -122 ml Intake IV Total 196 ml Tube Feeding 682 ml Output Urine Total 1000 ml # Bowel Movements 1 Physical Exam CONSTITUTIONAL/GENERAL: This is an adequately nourished patient, in no apparent distress. TUBES/LINES/DRAINS: Left IJ CVL, ETT, NGT, Mcdonald EYES: eyes closed. CARDIOVASCULAR: S1, S2, regular rate and rhythm without rub murmur or gallop. Palpable pulses. RESPIRATORY/CHEST: Symmetric, unlabored respirations. Clear to auscultation. Breath sounds equal bilaterally. No wheezes, rales, or rhonchi. GASTROINTESTINAL: Abdomen soft, nontender, hypoactive bowel sounds. GENITOURINARY: Without palpable bladder distension. Mcdonald catheter in place. MUSCULOSKELETAL: Extremities with edema. No mottling or clubbing. NEUROLOGICAL: Intubated, unresponsive. PSYCHIATRIC: Encephalopathic. . Diagnostic Tests Laboratory Laboratory Tests Test 01/02/18 16:02 01/03/18 05:37 01/03/18 05:57 01/04/18 04:50 Potassium Level 3.7 MEQ/L (3.5-5.1) 3.2 MEQ/L (3.5-5.1) 2.7 MEQ/L (3.5-5.1) Blood Gas Puncture Site LT RADIAL Blood Gas Patient Temperature 98.6 Blood Gas HCO3 28 mmol/L (22-26) Blood Gas Base Excess 3.5 mmol/L (-2-2) Blood Gas Oxygen Saturation 92 % (90-100) Arterial Blood pH 7.40 (7.380-7.420) Arterial Blood Partial Pressure CO2 47 mmHg (38-42) Arterial Blood Partial Pressure O2 78 mmHg (61-120) Arterial Blood Oxygen Content 13.5 Vol % (12.0-20.0) Arterial Blood Carboxyhemoglobin 1.3 % (0-4) Arterial Blood Methemoglobin 1.5 % (0-2) Blood Gas Hemoglobin 10.4 G/DL (12.0-16.0) Oxygen Delivery Device VENTILATOR Blood Gas Ventilator Setting PRVC16/500/1.0/+8 Blood Gas Inspired Oxygen 60 % Blood Urea Nitrogen 23 MG/DL (7-18) 22 MG/DL (7-18) Creatinine 1.08 MG/DL (0.60-1.30) 1.07 MG/DL (0.60-1.30) Random Glucose 132 MG/DL (74-106) 176 MG/DL (74-106) Total Protein 5.6 GM/DL (6.4-8.2) Albumin 2.2 GM/DL (3.4-5.0) Calcium Level 8.2 MG/DL (8.5-10.1) 7.8 MG/DL (8.5-10.1) Phosphorus Level 2.2 MG/DL (2.5-4.9) 2.6 MG/DL (2.5-4.9) Magnesium Level 2.3 MG/DL (1.5-2.5) 2.1 MG/DL (1.5-2.5) Alkaline Phosphatase 80 U/L (45-117) Aspartate Amino Transf (AST/SGOT) 47 U/L (15-37) Alanine Aminotransferase (ALT/SGPT) 23 U/L (12-78) Total Bilirubin 7.4 MG/DL (0.2-1.0) Sodium Level 150 MEQ/L (136-145) 150 MEQ/L (136-145) Chloride Level 113 MEQ/L (98-107) 113 MEQ/L (98-107) Carbon Dioxide Level 29.9 MEQ/L (21.0-32.0) 29.7 MEQ/L (21.0-32.0) Anion Gap 7 MEQ/L (5-15) 7 MEQ/L (5-15) Estimat Glomerular Filtration Rate 69 ML/MIN (>89) 70 ML/MIN (>89) Ammonia LESS THAN 10 MCMOL/L White Blood Count 5.5 TH/MM3 (4.0-11.0) Red Blood Count 2.93 MIL/MM3 (4.50-5.90) Hemoglobin 9.5 GM/DL (13.0-17.0) Hematocrit 27.8 % (39.0-51.0) Mean Corpuscular Volume 94.8 FL (80.0-100.0) Mean Corpuscular Hemoglobin 32.5 PG (27.0-34.0) Mean Corpuscular Hemoglobin Concent 34.3 % (32.0-36.0) Red Cell Distribution Width 23.8 % (11.6-17.2) Platelet Count 25 TH/MM3 (150-450) Mean Platelet Volume 8.4 FL (7.0-11.0) Neutrophils (%) (Auto) 82.3 % (16.0-70.0) Lymphocytes (%) (Auto) 6.4 % (9.0-44.0) Monocytes (%) (Auto) 6.5 % (0.0-8.0) Eosinophils (%) (Auto) 4.1 % (0.0-4.0) Basophils (%) (Auto) 0.7 % (0.0-2.0) Neutrophils # (Auto) 4.5 TH/MM3 (1.8-7.7) Lymphocytes # (Auto) 0.4 TH/MM3 (1.0-4.8) Monocytes # (Auto) 0.4 TH/MM3 (0-0.9) Eosinophils # (Auto) 0.2 TH/MM3 (0-0.4) Basophils # (Auto) 0.0 TH/MM3 (0-0.2) CBC Comment AUTO DIFF Differential Total Cells Counted 100 Neutrophils % (Manual) 59 % (16-70) Band Neutrophils % 26 % (0-6) Lymphocytes % 7 % (9-44) Monocytes % 1 % (0-8) Eosinophils % 3 % (0-4) Basophils % 2 % (0-2) Neutrophils # (Manual) 4.8 TH/MM3 (1.8-7.7) Metamyelocytes 2 % (0-1) Nucleated Red Blood Cells 1 /100 WBC (0-0) Differential Comment FINAL DIFF MANUAL Toxic Granulation 1+ (NORMAL) Dohle Bodies PRESENT (NONE SEEN) Platelet Estimate LOW (NORMAL) Platelet Morphology Comment NORMAL (NORMAL) Test 01/05/18 04:05 White Blood Count 5.3 TH/MM3 (4.0-11.0) Red Blood Count 2.75 MIL/MM3 (4.50-5.90) Hemoglobin 9.1 GM/DL (13.0-17.0) Hematocrit 26.2 % (39.0-51.0) Mean Corpuscular Volume 95.3 FL (80.0-100.0) Mean Corpuscular Hemoglobin 33.0 PG (27.0-34.0) Mean Corpuscular Hemoglobin Concent 34.6 % (32.0-36.0) Red Cell Distribution Width 24.2 % (11.6-17.2) Platelet Count 26 TH/MM3 (150-450) Mean Platelet Volume 10.1 FL (7.0-11.0) Blood Urea Nitrogen 23 MG/DL (7-18) Creatinine 1.05 MG/DL (0.60-1.30) Random Glucose 246 MG/DL (74-106) Calcium Level 7.8 MG/DL (8.5-10.1) Phosphorus Level 2.5 MG/DL (2.5-4.9) Magnesium Level 1.9 MG/DL (1.5-2.5) Sodium Level 150 MEQ/L (136-145) Potassium Level 2.7 MEQ/L (3.5-5.1) Chloride Level 112 MEQ/L (98-107) Carbon Dioxide Level 30.8 MEQ/L (21.0-32.0) Anion Gap 7 MEQ/L (5-15) Estimat Glomerular Filtration Rate 72 ML/MIN (>89) Result Diagram: 01/05/18 0405 01/05/18 0405 Microbiology Microbiology Date/Time Source Procedure Growth Status 01/01/18 18:20 Blood Peripheral Aerobic Blood Culture - Preliminary NO GROWTH IN 3 DAYS Resulted 01/01/18 18:20 Blood Peripheral Anaerobic Blood Culture - Preliminary NO GROWTH IN 3 DAYS Resulted 01/01/18 15:35 Sputum Endotracheal Acid Fast Stain - Final NO ACID FAST BACILLI SEEN Resulted 01/01/18 15:35 Sputum Endotracheal Mycobacterial Culture Pending Resulted . Imaging Last Impressions Chest X-Ray 01/05/18 0600 Signed Impressions: Service Date/Time: Friday, January 05, 2018 03:53 - CONCLUSION: 1. Stable exam compared with January 04. Endotracheal tube and nasogastric tube in good position. Left central line in superior vena cava. Toño Glez MD Abdomen X-Ray 12/30/17 0000 Signed Impressions: Service Date/Time: Saturday, December 30, 2017 13:16 - CONCLUSION: Nonobstructive bowel gas pattern. Jerardo Alejandro MD Liver Ultrasound 12/25/17 0000 Signed Impressions: Service Date/Time: Monday, December 25, 2017 09:17 - CONCLUSION: 1. Cirrhotic appearing liver with mild splenomegaly consistent with portal hypertension. The portal vein is patent with hepatopedal flow. 2. Gallbladder wall thickening with small amount of sludge and dominant gallstone. These findings are typically seen in patient's with chronic liver condition. 3. Incidental note of small bilateral pleural effusions. Jorge Roche MD . Procedures Orotracheal intubation 12/24/17 Left IJ central line placement 12/24/18 . Assessment and Plan Disease Oriented Problem List: (1) Abnormal LFTs (2) Septic shock (3) Hepatic failure (4) UGI bleed (5) Thrombocytopenia Symptom Scale: (1) Vomiting 0-10 Scale: Unable to quantify (patient intubated and sedated.) (2) Depression 0-10 Scale: Unable to quantify (patient intubated and sedated.) Pertinent Non-Medical Issues Psychosocial:Born in [place] but lived in [place] for many years. He has one sister who lives in [place]. He has been living in [place] for over 25 years, currently resides in [place]. He has 3 daughters, Fabi, who lives in [place], Melina who lives in [place] and Emely who lives in [place]. His recently . Spiritual: He is [employer] and sacraments of the sick have been requested. Legal: He has a previous healthcare surrogate naming his late and his daughter Melina as healthcare surrogates. He has reportedly recently completed new advanced directives naming his daughter Fabi as his primary healthcare surrogate and Rebekah Mendoza as his alternate. We are attempting to locate that paperwork through [employer] information management, however in the meantime, I have spoken with all 3 daughters and Ms. Mendoza, all who agree that Fabi should be the decision-maker, as they know that is consistent with their father's wishes. Ethical issues impacting care: None noted. . Important Contacts Daughter: Fabi , Daughter: Melina Daughter: Emely Friend: Rebekah Mendoza, his reported DPOA . Prognosis His prognosis is poor. He is currently on mechanical ventilator requiring vasopressor support for hemodynamic stability. He has a known history of end- stage liver disease with esophageal varices and has recently resumed heavy alcohol intake after nearly a year of abstinence. He had previously been pursuing a liver transplant at the request of his late , but since her , he has stated to his daughters that he did not plan to go forth with the transplant. He has pancytopenia and coagulopathy. He is at high risk for continued bleeding and further complications. . Code Status: No Code (patient remains intubated but family would not want reintubation or cardiac resuscitation.) Plan * Legal decision maker: At this time his previous healthcare surrogate names his late as his primary and his daughter Melina as his secondary healthcare surrogate. There is reportedly a new healthcare surrogate completed but not available to us at this time. By [place] statutes we would abide by the previous healthcare surrogate having Melina as the decision-maker. Melina is aware that a recent descent with her father had caused him to change his mind and she and her sister Emely have requested that decision making be done by their sister Fabi, as they state that that is consistent with their father's wishes. * NO CODE * Goals: Plan for withdrawal of life support on 01/05/18 around 10am. Palliative care will write orders for transition to comfort in AM. expected to visit 01/05/18 10am prior to withdrawal. Declines hospice at this time, will consider day after withdrawal if he survives. SYMPTOMS: * Encephalopathy: Multifactorial to include chronically elevated ammonia level, metabolic causes, end-stage liver disease. At this time he has been off sedation for greater than 24 hours and is not consistently responding to commands. Family has determined that due to his lack of clinical progress, terminal diagnosis and poor prognosis that his condition meets the specifications of his living well to stop aggressive care and proceed with compassionate ventilator withdrawal. * Depression: Patient has been significantly depressed since the loss of his and had resumed heavy alcohol use. He told his daughter believes that he did not plan to pursue liver transplant and that he did not "wish to sober" . [facility] and arrival of his brothers and sisters, prior to proceeding with withdrawal. His family is here from [place] and [place], he has not been responding to family. Palliative care will continue to follow the patient during hospital course as condition evolves, to assist patient/decision-maker with understanding of their medical conditions, weighing benefits/burdens of treatment options, for clarification of goals of treatment. Additionally will assist with any symptoms of palliative concern. . Time Spent Time Periods: 09:30- 10:30 >50% Counseling/Coord of Care: Yes Attestation To help prompt me to consider important information that might be impacting today's encounter and assessment, information from prior notes written by myself or my colleagues may have been "brought forward" into today's note. My signature on this note, however, is an attestation that I personally performed the exam, history, and/or decision-making noted today, and, unless otherwise indicated, the interactions with patient, family, and staff as well as the review of records all occurred today. I also attest that the listed assessment and stated plan reflect my best clinical judgment today based on the combination of historical information, prior notes, and today's exam/ interactions. When time spent is documented, it refers only to time spent today by the signer, or if indicated, combined time spent today by collaborating physician/nurse practitioner. . Codi Norman Jan 05, 2018 10:18
[2018-01-05] MEDS ORDERED: MORPHINE SULFATE 8 MG/ML INJ IV PUSH ONE (10:30)
[2018-01-05] MEDS ORDERED: LORazepam 2 MG/ML VIAL IV PUSH ONE ×2 (10:30→10:45)
[2018-01-05] MEDS ORDERED: HYOSCYAMINE 0.5 MG/ML AMP IV PUSH ONE (10:30)
[2018-01-05] MEDS ORDERED: MORPHINE SULFATE 4 MG/ML INJ IV PUSH ONE (10:45)
[2018-01-05] MEDS ORDERED: HYOSCYAMINE 0.5 MG/ML AMP IV PUSH PRN (11:00)
[2018-01-05] MEDS ORDERED: LORazepam 2 MG/ML VIAL IV PUSH PRN ×3 (11:00)
[2018-01-05] MEDS ORDERED: FUROSEMIDE 20 MG/2 ML VIAL IV PUSH PRN (11:00)
[2018-01-05] MEDS ORDERED: MORPHINE SULFATE 4 MG/ML INJ IV PUSH PRN (11:00)
[2018-01-05] MEDS ORDERED: ACETAMINOPHEN 650 MG SUPP RECTAL PRN (11:00)
[2018-01-05] MEDS ORDERED: MORPHINE SULFATE 8 MG/ML INJ IV PUSH PRN (11:00)
[2018-01-05] MEDS ORDERED: BISACODYL 10 MG SUPP RECTAL PRN (11:00)
[2018-01-05] MEDS: MORPHINE SULFATE 4 MG/ML INJ IV PUSH SCH ×2 (12:00→16:00)
[2018-01-05] MEDS: LORazepam 2 MG/ML VIAL IV PUSH SCH ×2 (12:00→16:00)
--- NOTE | 2018-01-05 17:47 | HHI.DS ---
Discharge Summary Admission Date Dec 24, 2017 at 15:44 Admitting Diagnosis upper GI bleed, portal hypertension (1) Upper GI bleed ICD Code: K92.2 - Gastrointestinal hemorrhage, unspecified Diagnosis: Principal Status: Acute (2) Hepatic failure ICD Code: K72.90 - Hepatic failure, unspecified without coma Diagnosis: Principal Status: Acute (3) Portal hypertension ICD Code: K76.6 - Portal hypertension Status: Acute (4) Pancytopenia ICD Code: D61.818 - Other pancytopenia Diagnosis: Principal Status: Acute (5) Cirrhosis ICD Code: K74.60 - Unspecified cirrhosis of liver Diagnosis: Principal Status: Acute (6) Coagulopathy ICD Code: D68.9 - Coagulation defect, unspecified Diagnosis: Principal Status: Acute (7) s/p right chestube placement Diagnosis: Principal Status: Acute (8) Sepsis ICD Code: A41.9 - Sepsis, unspecified organism Diagnosis: Principal Status: Acute (9) Lactic acidosis ICD Code: E87.2 - Acidosis Diagnosis: Principal Status: Acute (10) s/p right chestube placement Status: Acute (11) Ascites ICD Code: R18.8 - Other ascites Diagnosis: Principal Status: Acute (12) Hyperammonemia ICD Code: E72.20 - Disorder of urea cycle metabolism, unspecified (13) Hepatic encephalopathy ICD Code: K72.90 - Hepatic failure, unspecified without coma (14) End stage liver disease with active alcohol use Procedures 01/02: Cardioversion 2, with initiation of amiodarone infusion. Brief History 63-year-old white male admitted for suspected esophageal varices bleeding. Patient was in his usual state of health until sometime yesterday evening when he began experiencing some nausea. This morning he drank 2 beers and then later on at some point when he went to the restroom he had a mechanical fall and thinks he struck his head on something, not sure exactly what) then experienced his nausea again and actually vomited a "good amount of blood." He had a friend that came over who checks on him regularly and saw him and stated he was in and decided to call the ambulance. Patient denies experiencing any chest pain. He denies any changes in his stool or bowel habits. Emergency room physician for me that he did vomit some blood in the ER, and the nurse told me vomited almost 300 cc of blood. He had been started on augreotide and Protonix. The ER doctor also told me that his blood pressure did temporarily dropped to the 80s systolic and came up to the 100 systolic. The nurse then later on informing that his pressure again dropped to the 80s and now is in the 90 systolic while he's been receiving almost 2 L of normal saline boluses. Medical history includes that the patient actually had been admitted previously for bleeding esophageal varices a few months ago in 2017. Patient states he takes his lactulose daily. Social history: Patient states he drinks about 3-4 beers a day, says he's been drinking since his a couple of months ago. Prior to that he says he had not been drinking for a long time. No family history of esophageal cancer or liver disease. CBC/BMP: 01/05/18 0405 01/05/18 0405 Significant Findings Laboratory Tests Test 01/03/18 05:37 01/03/18 05:57 01/04/18 04:50 01/05/18 04:05 Blood Gas HCO3 28 mmol/L (22-26) Blood Gas Base Excess 3.5 mmol/L (-2-2) Arterial Blood Partial Pressure CO2 47 mmHg (38-42) Blood Gas Hemoglobin 10.4 G/DL (12.0-16.0) Blood Urea Nitrogen 23 MG/DL (7-18) 22 MG/DL (7-18) 23 MG/DL (7-18) Random Glucose 132 MG/DL (74-106) 176 MG/DL (74-106) 246 MG/DL (74-106) Total Protein 5.6 GM/DL (6.4-8.2) Albumin 2.2 GM/DL (3.4-5.0) Calcium Level 8.2 MG/DL (8.5-10.1) 7.8 MG/DL (8.5-10.1) 7.8 MG/DL (8.5-10.1) Phosphorus Level 2.2 MG/DL (2.5-4.9) Aspartate Amino Transf (AST/SGOT) 47 U/L (15-37) Total Bilirubin 7.4 MG/DL (0.2-1.0) Sodium Level 150 MEQ/L (136-145) 150 MEQ/L (136-145) 150 MEQ/L (136-145) Potassium Level 3.2 MEQ/L (3.5-5.1) 2.7 MEQ/L (3.5-5.1) 2.7 MEQ/L (3.5-5.1) Chloride Level 113 MEQ/L (98-107) 113 MEQ/L (98-107) 112 MEQ/L (98-107) Estimat Glomerular Filtration Rate 69 ML/MIN (>89) 70 ML/MIN (>89) 72 ML/MIN (>89) Ammonia LESS THAN 10 MCMOL/L Red Blood Count 2.93 MIL/MM3 (4.50-5.90) 2.75 MIL/MM3 (4.50-5.90) Hemoglobin 9.5 GM/DL (13.0-17.0) 9.1 GM/DL (13.0-17.0) Hematocrit 27.8 % (39.0-51.0) 26.2 % (39.0-51.0) Red Cell Distribution Width 23.8 % (11.6-17.2) 24.2 % (11.6-17.2) Platelet Count 25 TH/MM3 (150-450) 26 TH/MM3 (150-450) Neutrophils (%) (Auto) 82.3 % (16.0-70.0) Lymphocytes (%) (Auto) 6.4 % (9.0-44.0) Eosinophils (%) (Auto) 4.1 % (0.0-4.0) Lymphocytes # (Auto) 0.4 TH/MM3 (1.0-4.8) Band Neutrophils % 26 % (0-6) Lymphocytes % 7 % (9-44) Metamyelocytes 2 % (0-1) Nucleated Red Blood Cells 1 /100 WBC (0-0) Toxic Granulation 1+ (NORMAL) Dohle Bodies PRESENT (NONE SEEN) Platelet Estimate LOW (NORMAL) Imaging Chest X-Ray 01/05/18 0600 Signed Impressions: Service Date/Time: Friday, January 05, 2018 03:53 - CONCLUSION: 1. Stable exam compared with January 04. Endotracheal tube and nasogastric tube in good position. Left central line in superior vena cava. Toño Glez MD Abdomen X-Ray 12/30/17 0000 Signed Impressions: Service Date/Time: Saturday, December 30, 2017 13:16 - CONCLUSION: Nonobstructive bowel gas pattern. Jerardo F. Tocci, MD Liver Ultrasound 12/25/17 0000 Signed Impressions: Service Date/Time: Monday, December 25, 2017 09:17 - CONCLUSION: 1. Cirrhotic appearing liver with mild splenomegaly consistent with portal hypertension. The portal vein is patent with hepatopedal flow. 2. Gallbladder wall thickening with small amount of sludge and dominant gallstone. These findings are typically seen in patient's with chronic liver condition. 3. Incidental note of small bilateral pleural effusions. Jorge Roche MD PE at Discharge GENERAL: 62 -year-old male currently orotracheally intubated and sedated SKIN: Warm and dry. No rash HEAD: Atraumatic. Normocephalic. EYES: Pupils equal and round.. ENT: Blood from oral mucosa during intubation notice. Positive petechiae. NECK: Trachea midline. No JVD. CARDIOVASCULAR: Regular rate and rhythm. S1, S2. No S4. RESPIRATORY: No accessory muscle use. Clear to auscultation. Breath sounds equal bilaterally. GASTROINTESTINAL: Abdomen taut, distended. Hypoactive bowel sounds are appreciated. MUSCULOSKELETAL: Extremities with 2+ B/L upper and lower extremity edema. No obvious deformities. NEUROLOGICAL: Intubated sedated, withdraws to pain. Procedures /: Cardioversion 2, with initiation of amiodarone infusion. Date of Insertion: Dec 24, 2017 Line: Central Venous Catheter Side: Left Location: Internal, Jugular Transfer Summary See hospital course Hospital Course 62 yo male. Date of admission 12/24/2017. Consultation 12/24/2017. Past medical history includes liver cirrhosis with recurrent upper GI bleeding. He was diagnosed 04/11 with liver cirrhosis. He states he quit drinking alcohol that time he was followed at [facility] for liver transplantation evaluation. April 2017, upper GI bleeding - distal Russell's esophagus and grade 1 varices. Stomach no bladder ulcers. Mucosa does not appear edematous duodenum. Status post angiogram of the celiac, SMA revealed no hemorrhagic focus identified. No further bleeding. Patient was again admitted 08/13 for upper GI bleed. EGD revealed grade 1-2 septal varices in no active bleeding. Gastric varices in the fundus just 2 cm GE junction actively squirting blood. Banding not possible so injected with 6 cc of epinephrine to stop the bleeding. Large clots and stomach. Remain intubated on augreotide and Protonix drips. Recommended if continued bleeding need to consider for TIPS. Most recently was admitted December 11, 2017 with alcohol toxicity. His has recently and he has drinking alcohol again. His alcohol levels currently 234. He presented today with upper GI bleeding. He is noted to be pancytopenic in with a white blood cell count of 3.8. Hemoglobin 7.1 and platelets of 30. INR is 1.9. AST is elevated. Alcohol level is 234. Patient received 6 L normal saline was started on a Protonix and octreotide drip. He remained hypotensive and peripheral vasopressors were started. Services Advisor was consulted along with GI. Due to the upper GI bleed decision was made to secure the airway with oral tracheal intubation and placement of central line to receive rapid transfusion. I discussed this with daughter Fabi Ndiaye [phone] and she is in agreement with aggressive plans at the present time. I described to her d- dimer nature of his current clinical situation and she wished to be made aware of any medical decisions that need to be made. Kvng) did make her the healthcare proxy at this time. 12/25: Transfused 6 PRBCs, 2 FFP and 2 platelets overnight. Currently norepinephrine at 5 mcg/m and vasopressin 0.04 units per minute. Afebrile. Arousable on the ventilator. We'll transfuse FFP, cryoprecipitate and platelets again this AM 12/26 Patient remains intubated and sedation . On Octreotide and Protonix drips. In addition he is on Levopehd 1 saul and Vasopressin0.04. NGT ahd approx 200ml coffee ground gastric output, 12/27: No further bleeding noted. INR currently 1.7. Platelets to 28K. family to arrive late . Possibly transition to comfort care Monday, however request aggressive cares in the interim short of CPR. 12/28: Status post EGD today. Possible brief episode of esophageal varices resolved. Portal gastropathy noted. Hemoglobin stable. Remains intubated. 12/29: Remains intubated. No active bleeding. Hemoglobin stable. Will diurese today. Positive since admission. No bowel movement Subjective 2/3: Minimal diuresis overnight. Hemoglobin remained stable. No bowel movement. Ordered magnesium citrate per GI. Increasing bowel regimen from my standpoint. Diuresed with furosemide 40 mg IV twice a day. 12/31: Patient noted to be deeply sedated this a.m. Fentanyl infusion placed on hold. Hypernatremia slightly resolved, all IV infusions base changed to D5W instead of normal saline. INR noted to be elevated, 1.9 no active signs of bleeding will monitor possible transfusion of FFP. Noted chest x-ray is worsening now patient with pleural effusions will continue the Lasix. Free water flushes have been decreased. 01/01: Currently encephalopathic, patient off sedation greater than 24 hours. Patient remains on octreotide and Protonix infusions at this time per GI. Discussion with palliative care and patient's daughter decision to continue aggressive care and terms short of CPR to be continued .INR 2.1 continues to be elevated 2.1 this a.m. 1 unit FFP to be transfused. Platelet count 24,000, patient to receive 1 unit of platelets. No active signs of bleeding. Bands increasing blood cultures obtained. 01/02: Overnight the patient went into A. fib RVR requiring cardioversion 2. The patient was then placed on amiodarone infusion without bolusing. The patient continued in sinus tach early this a.m.. The patient received 1 unit of FFP for INR greater than 2.0 yesterday, and one 6 pack of platelets. Patient 's pulmonary status continues to worsen significant consolidations, sodium level downtrending ,IV fluid discontinued. Patient's mentation improved spontaneous eye opening did not follow commands. Propofol infusion reinitiated early this a.m.. 01/03: Afebrile. FiO2 requirement slightly decreased to 60%. Sputum culture revealed gram-negative rods antibiotic coverage expanded to Aztreonam, patient currently on Rocephin. ID has been consulted. ETT day 10, discussed with family the possibility of tracheostomy. Daughter has stated previously "he would not want a trach or PEG". Follow-up with palliative care to us define goals of care. No further cardiac arrhythmias, patient continues on amiodarone PO. 01/04: Afebrile. FiO2 requirements decreased to 50%. No acute events overnight. Electrolytes being repleted. Discussion with patient's daughter yesterday Fabi, plan for passionate withdrawal tentatively scheduled for Monday. 01/05: Remains intubated. Family planning on terminal withdrawal and comfort measures today. D/W palliative care. After administration of comfort medications, active life support was withdrawn. [facility] Condition on Discharge: Deteriorating Discharge Disposition: Hospice/Med Facility Discharge Instructions DIET: Follow Instructions for: Nothing By Mouth Activities you can perform: Continue Bedrest Devaughn Gonzalez MD Jan 05, 2018 17:47
== END 2018-01-05 18:46 | disposition hospice, inpatient (51) | DRG 377 ==
LOC: PHED 14:02 → PHEDA 15:44 → PHICU 17:15 → HIME 12-25 14:25
PROVIDERS: ADMIT Internal Medicine Critical Care Medicine; ATTEND Internal Medicine Critical Care Medicine
PROC: 30233K1 Transfusion of Nonautologous Frozen Plasma into Peripheral Vein, Percutaneous Approach (ICD-10-PCS; principal; 2017-12-24)
PROC: 5A1955Z Respiratory Ventilation, Greater than 96 Consecutive Hours (ICD-10-PCS; 2017-12-24)
PROC: 0BH17EZ Insertion of Endotracheal Airway into Trachea, Via Natural or Artificial Opening (ICD-10-PCS; 2017-12-24)
PROC: 30233N1 Transfusion of Nonautologous Red Blood Cells into Peripheral Vein, Percutaneous Approach (ICD-10-PCS; 2017-12-24)
PROC: 6A551Z2 Pheresis of Platelets, Multiple (ICD-10-PCS; 2017-12-24)
PROC: 05HN33Z Insertion of Infusion Device into Left Internal Jugular Vein, Percutaneous Approach (ICD-10-PCS; 2017-12-24)
PROC: 0T9B70Z Drainage of Bladder with Drainage Device, Via Natural or Artificial Opening (ICD-10-PCS; 2017-12-25)
PROC: 0DJ08ZZ Inspection of Upper Intestinal Tract, Via Natural or Artificial Opening Endoscopic (ICD-10-PCS; 2017-12-25)
PROC: 0D9680Z Drainage of Stomach with Drainage Device, Via Natural or Artificial Opening Endoscopic (ICD-10-PCS; 2017-12-25)
PROC: 0DJ08ZZ Inspection of Upper Intestinal Tract, Via Natural or Artificial Opening Endoscopic (ICD-10-PCS; 2017-12-28)
PROC: 5A2204Z Restoration of Cardiac Rhythm, Single (ICD-10-PCS; 2018-01-02)
DX: K92.0 Hematemesis (principal); G92 Toxic encephalopathy; J96.01 Acute respiratory failure with hypoxia; R65.21 Severe sepsis with septic shock; J90 Pleural effusion, not elsewhere classified; J18.9 Pneumonia, unspecified organism; A41.9 Sepsis, unspecified organism; D70.9 Neutropenia, unspecified; E87.0 Hyperosmolality and hypernatremia; D68.4 Acquired coagulation factor deficiency; E87.2 Acidosis; K76.6 Portal hypertension; D62 Acute posthemorrhagic anemia; F10.129 Alcohol abuse with intoxication, unspecified; K22.70 Barrett's esophagus without dysplasia; K31.89 Other diseases of stomach and duodenum; K70.31 Alcoholic cirrhosis of liver with ascites; I85.10 Secondary esophageal varices without bleeding; Y90.7 Blood alcohol level of 200-239 mg/100 ml; E88.09 Other disorders of plasma-protein metabolism, not elsewhere classified; Z51.5 Encounter for palliative care; D73.1 Hypersplenism; R00.0 Tachycardia, unspecified; I48.91 Unspecified atrial fibrillation; E87.6 Hypokalemia; E83.51 Hypocalcemia; E83.39 Other disorders of phosphorus metabolism; I10 Essential (primary) hypertension; D69.59 Other secondary thrombocytopenia; Z87.442 Personal history of urinary calculi; K76.0 Fatty (change of) liver, not elsewhere classified; I86.4 Gastric varices; F32.9 Major depressive disorder, single episode, unspecified; K72.90 Hepatic failure, unspecified without coma; W18.30XA Fall on same level, unspecified, initial encounter; Y92.009 Unspecified place in unspecified non-institutional (private) residence as the place of occurrence of the external cause; K92.1 Melena; E87.70 Fluid overload, unspecified
CPT/HCPCS: 31500; 36430; 36556; 36600; 71045; 74018; 76705; 80048; 80053; 80307; 81001; 82140; 82150; 82550; 82805; 82948; 83010; 83605; 83615; 83690; 83735; 84100; 84132; 84443; 85007; 85014; 85018; 85025; 85027; 85060; 85384; 85610; 85730; 86850; 86900; 86901; 86920; 86927; 86965; 87015; 87040; 87070; 87077; 87116; 87186; 87205; 87206; 87641; 92960; 93005; 94002; 94003; 94640; 94664; 96365; 96375; C9113; J0282; J0610; J0696; J1940; J1980; J2060; J2250; J2270; J2354; J2550; J3010; J3411; J3475; J3480; J7030; J7040; J7050; J7070; J7613; P9016; P9017; P9031; P9035; P9045; P9047